=== PATIENT | male | born 1960 | race Caucasian/White ===

== ENCOUNTER 2019-07-11 10:50 | Outpatient (RCR) | payer MEDICAID, SELFPAY | END 2019-07-18 00:01 | LOC: WOUND 10:50 | PROVIDERS: Family Provider Family Medicine; Visit Provider Thoracic Surgery (Cardiothoracic Vascular Surgery) | DX: I96 Gangrene, not elsewhere classified (principal); L89.324 Pressure ulcer of left buttock, stage 4; L89.314 Pressure ulcer of right buttock, stage 4 | CPT/HCPCS: 11042; 11045 ==

== ENCOUNTER 2019-07-21 10:29 | Outpatient (CLI) | payer MEDICAID, SELFPAY ==
--- NOTE | 2019-07-21 10:35 | XR_ITS ---
WS: [id number] ABDOMEN: SUPINE FILM HISTORY: PYELONEPHRITIS COMPARISON: 06/16/2011 and 07/17/2019. Mild fecal retention and small bowel distention. LEFT lower quadrant ostomy. IVC filter. Right kidney: Double-J RIGHT ureteral stent. No calcification along the course of the stent. Left kidney: No renal or ureteral stone identified. XR/XR KUB [id number] IMPRESSION: 1. Right-sided double-J ureteral stent in good position. 2. Suspect mild ileus.
== END 2019-07-21 10:30 | disposition home or self-care (01) ==
LOC: RAD 10:31
PROVIDERS: Family Provider Family Medicine; PCP Family Medicine; Visit Provider Urology
DX: N12 Tubulo-interstitial nephritis, not specified as acute or chronic (principal); Z93.4 Other artificial openings of gastrointestinal tract status
CPT/HCPCS: 74018

== ENCOUNTER 2019-07-27 12:01 | Day surgery (SDC) | payer MEDICAID, SELFPAY ==
[2019-07-26 12:35] VITALS: BMI 28.1
[2019-07-27] VITALS (13 sets, daily range): BP systolic 105–158; BP diastolic 68–94; PULSE 65–91; RESP 12–18; TEMP 36.1–36.6; O2SAT 92–100
--- NOTE | 2019-07-27 | SC_ITS ---
WS: [id number] Fluoroscopy for right cystoscopy in the OR, today Clinical Data: CYSTO Comparison: KUB, 07/21/2019 Findings: There is a ureteral stent extending from the bladder to the right renal pelvis. Contrast material was injected into the right renal pelvis appear Right ureteral cystoscopy. SC/C-arm FL for Urology Impression:
--- NOTE | 2019-07-27 | SCC_ITS ---
Procedure Done: 1. Cystoscopy with removal of right ureteral stent 2. Right ureterorenoscopy with laser lithotripsy of multiple gelatinous stones infectious stones 3. Right retrograde ureteropyelogram 4. No stent 53.5 seconds of fluoroscopic guidance, for a cumulative dose of 12.89 mGy, was provided to Dr. Castaneda by the radiology department. C-arm images of the abdomen were saved for the patient's permanent record. ANATD
--- NOTE | 2019-07-27 11:48 | ANES.PREANES ---
Pre-Anesthetic Assessment Pre-Anesthetic Assessment: Height/Weight: Height 1.7 m Weight 81.647 kg Proposed Procedure: Operation Date: 07/27/19 13:00 Proposed Procedures p Cystoscopy(Not Applicable) - MD stuart Miller Ureteral Stent Removal(Right) - MD stuart Miller Flexible Ureteroscopy(Not Applicable) - MD stuart Miller Ureteral Stent Placement(Bilateral) - Brandon Castaneda MD Social: Social History: Tobacco and No alcohol Exam: Pre-Anes Outpt Exam: alert, oriented x 3 and regular rate & rhythm Additional Exam Findings (including area of procedure): Course bilaterally, will give breathing tx Airway: Submandibular: WNL Cervical ROM: WNL MP: 2 History/ROS: No significant history except as noted Pulmonary: Pulmonary: None reported CV/HEM: CV/HEM: None reported : Comments: neurogenic bladder Musc/skel: Comments: paraplegia Anesthetic Plan: ASA status: III Anesthesia: Anesthesia Evaluation and General Risk of > 500 ml blood loss (7ml/kg in children): No PFSH Anesthesia PFSH: Social History Smoking and tobacco status: current every day smoker Alcohol intake: never Adopted: No Caregiver/support person: No Lives independently: No Household members: spouse Marital status: Current occupational status: disabled Data Anesthesia Cardiac Studies: No Data to Display
[2019-07-27] MEDS: sodium chloride 0.9% 1,000 ML 30 ML IV (12:40)
[2019-07-27] MEDS: ipratropium 0.5 mg/2.5 mL Neb INHALATION (12:55)
--- NOTE | 2019-07-27 13:09 | P.HPUD_ITS ---
H&P update H&P Update: DATE OF SURGERY/PROCEDURE: 07/27/19 DATE H&P PERFORMED: 10/05 H&P UPDATE INFORMATION: H&P completed within last 30 days, No changes to prior documentation and H&P is in [facility] EMR on date indicated PREOP DIAGNOSIS: Right proximal ureteral stone status post obstructive pyelonephritis with stenting PLANNED PROCEDURE: Operation Date: 07/27/19 13:00 Proposed Procedures p Cystoscopy(Not Applicable) - Brandon Castaneda MD s Ureteral Stent Removal(Right) - Brandon Castaneda MD s Flexible Ureteroscopy(Not Applicable) - Brandon Castaneda MD s Ureteral Stent Placement(Bilateral) - Brandon Castaneda MD Full H&P Medications/Allergies: Current Medications: Current Medications Generic Name Dose Route Start Last Admin Trade Name Freq PRN Reason Stop Dose Admin Sodium Chloride 1,000 mls @ 30 ml s/hr 07/27/19 06:15 07/27/19 12:40 Sodium Chloride 0.9% IV 07/28/19 06:14 30 mls/hr .Q24H CLARY Administration Perinent History: Medical/Surgical History: Medical History (Updated 07/21/19 @ 13:58 by Brandon Castaneda MD) Neurogenic bladder (Acute) Obstructive pyelonephritis (Inactive) Paraplegia (Acute) Right ureteral calculus (Acute) Family History: Family History (Updated 07/20/19 @ 09:36 by Tata Cooley LPN) Mother Cancer Denies family history of Anesthesia complication Bleeding disorder Social History: Social History Smoking and tobacco status: current every day smoker Alcohol intake: never Adopted: No Caregiver/support person: No Lives independently: No Household members: spouse Marital status: Current occupational status: disabled
[2019-07-27] MEDS: levofloxacin-dextrose 5 % 500 MG/100 ML PREMIX 100 MG IV (13:10)
[2019-07-27] MEDS: iohexol 300 mg/mL 50 mL Btl 6 ML XX (14:36)
--- NOTE | 2019-07-27 14:55 | PM.OP ---
Operative Report Post-Operative Note: Date of procedure: 07/27/19 Preop Diagnosis: Status post emergency stenting, right obstructive pyelonephritis with obstructing infectious debris Post-op diagnosis: same Post-op Findings: Multiple solid gelatinous type debris stones in the right collecting system including renal pelvis and multiple calyces. Procedure Done: 1. Cystoscopy with removal of right ureteral stent 2. Right ureterorenoscopy with laser lithotripsy of multiple gelatinous stones infectious stones 3. Right retrograde ureteropyelogram 4. No stent Implants: None Specimens removed/disposition: Multiple fragments of lithotripsied gelatinous material consistent with what was seen on the CT scan as intra-collecting system and obstructing proximal ureteral lesions Pathology: other Surgeon: Brandon Castaneda Anesthesia: general Complications: None Findings: Approximately 5 distinct stones consistent of gelatinous matrix type material that could not be pulled through the scope without fragmentation with laser lithotripsy. Were difficult to securing grasping forceps and therefore laser lithotripsy was utilized to break them into small enough pieces that were evacuated via the flexible ureteroscope. All fragments were confirmed to be removed at the completion of the procedure with careful inspection of all the calyces. Condition: stable Disposition: PACU Operative Report: Brief History: Mr. Mullen is a 58-year-old white male who was recently hospitalized for obstructive pyelonephritis with an obstructing lesion in the right proximal ureter that had a matrix stone type appearance. And emergency stenting was performed in the right collecting system. He was also found to have a large amount of a similar type debris in the bladder and this was cleaned out with lavage of the bladder. He is back now for flexible ureteroscopy in the right collecting system to clear out the remaining debris. Procedure: After routine preoperative evaluation examination and obtaining of informed consent he was taken to the operating suite on 07/27/2019 where general anesthesia was administered without difficulty after appropriate timeout was performed, SCDs confirmed to be functioning, preoperative antibiotics administered, beta-dae protocol confirmed. Prepped and draped in usual sterile fashion in dorsolithotomy position pain careful attention to avoiding pressure points. 21 Croatian cystoscope with 30 degree lens was introduced into the urethral meatus and advanced into the bladder videoscopy. Bladder was systematically examined. There was some small amount of debris and some small stone fragments off of the stent that were cleared from the bladder with the lavage. Flexible tip guidewire was easily passed up the right ureter next to the stent and the stent was grasped with grasping forceps and removed under fluoroscopic monitoring with easy uncurling of the proximal stent. A flexible ureteroscope was then advanced over the guidewire up to the right renal pelvis and the wire was removed. The intrarenal collecting system was carefully inspected and there were multiple collections of matrix type stones in the renal pelvis and in multiple calyces consistent with the debris cleared from his bladder at stent placement mentioned above. 3 Croatian grasping forceps were utilized to try to secure these but the grasping forceps just cut through the gelatinous material. A guidewire was then passed back through the scope and the scope was removed visualizing the internal ureteral lumen and no additional gelatinous material was identified. A 38 cm ureteral access sheath was then advanced over the guidewire to just below the right UPJ and the flexible ureteroscope was then advanced up the right ureter over the guidewire into the renal pelvis and the guidewire was removed. A 275 ?m holmium laser fiber was then utilized to fragment all of the gelatinous bodies into small enough pieces that were then evacuated with lavage of the renal pelvis and calyceal system through the flexible ureteroscope. There was also some blood clot that was evacuated as well. On final inspection all the calyces were clear of these fragments, no additional gelatinous bodies were identified. All clot was also removed. There was no active bleeding. The ureteral access sheath was backed up onto the hub of the scope and the scope was removed under direct visualization to inspect the ureter to make a decision whether to leave the stent or not. The ureter was nicely dilated and atraumatic in its appearance. For that reason it was decided to NOT leave a ureteral stent in place. The bladder was drained with a 16 Croatian Alonso catheter and the procedure completed. He tolerated the procedure well without complications and was awakened in the operating room and returned to the recovery in stable condition PLANS: 1. Maintain Alonso catheter for approximately 3 days and then remove at home 2. Resume SCIC as doing prior to becoming sick 3. Follow-up with me in 3 months with a KUB. 4. Complete 5-day course of Levaquin prescribed. 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
--- NOTE | 2019-07-27 15:08 | SUR.PHASEI ---
1454 PTTO PACU SLEEPY WITH ORAL AIRWAY IN PLACE GOOD RESP EFFORT NOTED SATS MAINTAINED WITH NO DISTRESS ESPINAL TO DD STATLOCK TO RT THIGH PINK URINE NO CLOTS NOTED TO TUBING.
--- NOTE | 2019-07-27 15:19 | SUR.PHASEI ---
PT OPENS EYES BUT DOES NOT FOLLOW COMMANDS, ORAL AIRWAY IN PLACE PT ON RA TRIAL, VSS.
--- NOTE | 2019-07-27 15:55 | SUR.PHASEI ---
1542 PT TO OPS AWAKE ALERT TALKATIVE WITH STAFF AND PT TURNED AND BILAT BUTTOCK DRESSING D/I STATES SHE TAKES IT OFF AT NITE TO AIRDRY
== END 2019-07-27 16:48 | disposition home or self-care (01) ==
PROVIDERS: Family Provider Family Medicine; PCP Family Medicine; Visit Provider Urology
PROC: 0TJB8ZZ Inspection of Bladder, Via Natural or Artificial Opening Endoscopic (ICD-10-PCS; CPT 52000; principal; 2019-07-27 13:00)
PROC: (CPT 52310; 2019-07-27 13:00)
PROC: 0TJ98ZZ Inspection of Ureter, Via Natural or Artificial Opening Endoscopic (ICD-10-PCS; CPT 52351; 2019-07-27 13:00)
PROC: (CPT 52353; 2019-07-27 13:00)
DX: N11.1 Chronic obstructive pyelonephritis (principal); F17.210 Nicotine dependence, cigarettes, uncomplicated
CPT/HCPCS: 52353; 36415; 76000; 88300; 88305; 94640; 96365; J1956; J2001; J2704; J3010; J7030; J7611; J7644; Q9967

== ENCOUNTER 2019-08-15 10:07 | Outpatient (RCR) | payer MEDICAID, SELFPAY | END 2019-08-18 23:59 | disposition home or self-care (01) | LOC: WOUND 10:07 | PROVIDERS: Family Provider Family Medicine; PCP Family Medicine; Visit Provider Thoracic Surgery (Cardiothoracic Vascular Surgery) | DX: I96 Gangrene, not elsewhere classified (principal); L89.324 Pressure ulcer of left buttock, stage 4; L89.314 Pressure ulcer of right buttock, stage 4 | CPT/HCPCS: 11042; 97597 ==

== ENCOUNTER 2019-09-12 10:28 | Outpatient (RCR) | payer MEDICAID, SELFPAY | END 2019-09-16 23:59 | disposition home or self-care (01) | LOC: WOUND 10:28 | PROVIDERS: Family Provider Family Medicine; PCP Family Medicine; Visit Provider Thoracic Surgery (Cardiothoracic Vascular Surgery) | DX: I96 Gangrene, not elsewhere classified (principal); L89.324 Pressure ulcer of left buttock, stage 4; L89.314 Pressure ulcer of right buttock, stage 4 | CPT/HCPCS: 11042; 11045; A6446 ==

== ENCOUNTER 2019-10-17 10:17 | Outpatient (RCR) | payer MEDICAID, SELFPAY | END 2019-10-17 23:59 | disposition home or self-care (01) | LOC: WOUND 10:17 | PROVIDERS: Family Provider Family Medicine; PCP Family Medicine; Visit Provider Thoracic Surgery (Cardiothoracic Vascular Surgery) | DX: I96 Gangrene, not elsewhere classified (principal); L89.324 Pressure ulcer of left buttock, stage 4; L89.624 Pressure ulcer of left heel, stage 4; L89.314 Pressure ulcer of right buttock, stage 4 | CPT/HCPCS: 11042; 11044; 11045; 87070; 87077; 87176; 87186; 87205 ==

== ENCOUNTER 2019-10-20 10:48 | Outpatient (CLI) | payer MEDICAID, SELFPAY ==
--- NOTE | 2019-10-20 | XR_ITS ---
WS: [id number] FOOT LEFT TECHNIQUE: 3 views of the left foot CLINICAL INFORMATION: NON HEALING ULCER COMPARISON: None. FINDINGS: Soft tissue ulceration with defect overlying the calcaneus dorsally. Small amount of underlying irreg ularity in the calcaneus suspicious for early or developing osteomyelitis. This can be further evalua segun MRI. Diffuse osteopenia. Soft tissue edema lower leg and ankle. Normal anatomic alignment. No acute fractu res. Plantar and Achilles calcaneal spurring. IP joint narrowing. XR/XR foot LT min 3V* [id number] IMPRESSION: 1. Dorsal soft tissue ulceration overlying the calcaneus with a small amount o f periosteal reaction and bony irregularity suspicious for developing osteomyel itis. This can be further evaluated with MRI 2. Diffuse osteopenia.
== END 2019-10-20 10:49 | disposition home or self-care (01) ==
LOC: RADWPI 10:51
PROVIDERS: Family Provider Family Medicine; PCP Family Medicine; Visit Provider Thoracic Surgery (Cardiothoracic Vascular Surgery)
DX: L97.529 Non-pressure chronic ulcer of other part of left foot with unspecified severity (principal); M85.872 Other specified disorders of bone density and structure, left ankle and foot
CPT/HCPCS: 73630

== ENCOUNTER 2019-11-07 13:03 | Outpatient (RCR) | payer MEDICAID, SELFPAY ==
--- NOTE | 2019-11-07 15:02 | XR_ITS ---
WS: [id number] ABDOMEN KUB CLINICAL INFORMATION: Renal/ureteral calculi. COMPARISON: July 21, 2019 FINDINGS: IVC filter . Moderate pancolonic constipation. No significant small bowel distention. Osteopenia. Mil d spondylitic changes lumbar spine. IVC filter. Degenerative arthritis both hips. No visualized renal or ureteral calculi. XR/XR KUB [id number] Impression: 1. Moderate pancolonic constipation partially obscures renal fossa. 2. No visualized renal or ureteral calculi.
== END 2019-11-16 23:59 | disposition home or self-care (01) ==
LOC: WOUND 13:03
PROVIDERS: Family Provider Family Medicine; PCP Family Medicine; Visit Provider Thoracic Surgery (Cardiothoracic Vascular Surgery)
DX: I96 Gangrene, not elsewhere classified (principal); L89.324 Pressure ulcer of left buttock, stage 4; L89.624 Pressure ulcer of left heel, stage 4; L89.314 Pressure ulcer of right buttock, stage 4; M79.672 Pain in left foot
CPT/HCPCS: 11042; 11045; 74018

== ENCOUNTER 2019-11-28 10:47 | Outpatient (CLI) | payer MEDICAID, SELFPAY | END 2019-11-28 10:48 | disposition home or self-care (01) | LOC: WOUND 10:48 | PROVIDERS: Family Provider Family Medicine; PCP Family Medicine; Visit Provider Thoracic Surgery (Cardiothoracic Vascular Surgery) | DX: I96 Gangrene, not elsewhere classified (principal); L89.324 Pressure ulcer of left buttock, stage 4; L89.624 Pressure ulcer of left heel, stage 4; L89.314 Pressure ulcer of right buttock, stage 4 | CPT/HCPCS: 11042; 11045 ==

== ENCOUNTER 2019-12-12 10:54 | Outpatient (CLI) | payer MEDICAID, SELFPAY | END 2019-12-12 10:55 | disposition home or self-care (01) | LOC: WOUND 10:55 | PROVIDERS: Family Provider Family Medicine; PCP Family Medicine; Visit Provider Thoracic Surgery (Cardiothoracic Vascular Surgery) | DX: I96 Gangrene, not elsewhere classified (principal); L89.324 Pressure ulcer of left buttock, stage 4; L89.624 Pressure ulcer of left heel, stage 4; L89.314 Pressure ulcer of right buttock, stage 4 | CPT/HCPCS: 11042; 11045 ==

== ENCOUNTER 2020-01-02 10:55 | Outpatient (CLI) | payer MEDICAID, SELFPAY | END 2020-01-02 10:56 | disposition home or self-care (01) | LOC: WOUND 10:58 | PROVIDERS: Family Provider Family Medicine; PCP Family Medicine; Visit Provider Thoracic Surgery (Cardiothoracic Vascular Surgery) | DX: I96 Gangrene, not elsewhere classified (principal); L89.324 Pressure ulcer of left buttock, stage 4; L89.624 Pressure ulcer of left heel, stage 4; L89.314 Pressure ulcer of right buttock, stage 4 | CPT/HCPCS: 11042; 11045 ==

== ENCOUNTER 2020-02-13 15:57 | Outpatient (CLI) | payer MEDICAID, SELFPAY | END 2020-02-13 15:58 | disposition home or self-care (01) | LOC: WOUND 16:17 | PROVIDERS: Family Provider Family Medicine; PCP Family Medicine; Visit Provider Thoracic Surgery (Cardiothoracic Vascular Surgery) | DX: L89.324 Pressure ulcer of left buttock, stage 4 (principal); L89.624 Pressure ulcer of left heel, stage 4; L89.314 Pressure ulcer of right buttock, stage 4 | CPT/HCPCS: 11042; 11045 ==

== ENCOUNTER 2020-03-12 10:42 | Outpatient (CLI) | payer MEDICAID, SELFPAY | END 2020-03-12 10:43 | disposition home or self-care (01) | LOC: WOUND 10:42 | PROVIDERS: Family Provider Family Medicine; PCP Family Medicine; Visit Provider Thoracic Surgery (Cardiothoracic Vascular Surgery) | DX: L89.324 Pressure ulcer of left buttock, stage 4 (principal); L89.624 Pressure ulcer of left heel, stage 4; L89.153 Pressure ulcer of sacral region, stage 3; L89.314 Pressure ulcer of right buttock, stage 4 | CPT/HCPCS: 11042; 11045 ==

== ENCOUNTER 2020-03-26 10:42 | Outpatient (CLI) | payer MEDICAID, SELFPAY | END 2020-03-26 10:43 | disposition home or self-care (01) | LOC: WOUND 10:43 | PROVIDERS: Family Provider Family Medicine; PCP Family Medicine; Visit Provider Thoracic Surgery (Cardiothoracic Vascular Surgery) | DX: L89.314 Pressure ulcer of right buttock, stage 4 (principal); L89.624 Pressure ulcer of left heel, stage 4; L89.153 Pressure ulcer of sacral region, stage 3; L89.324 Pressure ulcer of left buttock, stage 4 | CPT/HCPCS: 11042; 11045 ==

== ENCOUNTER 2020-04-23 10:43 | Outpatient (CLI) | payer MEDICAID, SELFPAY | END 2020-04-23 10:44 | disposition home or self-care (01) | LOC: WOUND 10:44 | PROVIDERS: Family Provider Family Medicine; PCP Family Medicine; Visit Provider Thoracic Surgery (Cardiothoracic Vascular Surgery) | DX: L89.324 Pressure ulcer of left buttock, stage 4 (principal); L89.624 Pressure ulcer of left heel, stage 4; L89.314 Pressure ulcer of right buttock, stage 4 | CPT/HCPCS: 11042; 11045 ==

== ENCOUNTER 2020-05-21 10:32 | Outpatient (CLI) | payer MEDICAID, SELFPAY | END 2020-05-21 10:33 | disposition home or self-care (01) | LOC: WOUND 10:33 | PROVIDERS: Family Provider Family Medicine; PCP Family Medicine; Visit Provider Thoracic Surgery (Cardiothoracic Vascular Surgery) | DX: L89.324 Pressure ulcer of left buttock, stage 4 (principal); L89.314 Pressure ulcer of right buttock, stage 4; L89.624 Pressure ulcer of left heel, stage 4 | CPT/HCPCS: 11042; 11045 ==

== ENCOUNTER 2020-06-18 09:54 | Outpatient (CLI) | payer MEDICAID, SELFPAY | END 2020-06-18 09:55 | disposition home or self-care (01) | LOC: WOUND 09:54 | PROVIDERS: Family Provider Family Medicine; PCP Family Medicine; Visit Provider Thoracic Surgery (Cardiothoracic Vascular Surgery) | DX: L89.324 Pressure ulcer of left buttock, stage 4 (principal); L89.624 Pressure ulcer of left heel, stage 4; L89.314 Pressure ulcer of right buttock, stage 4 | CPT/HCPCS: 11042; 11045; L4397 ==

== ENCOUNTER 2020-07-23 10:46 | Outpatient (CLI) | payer MEDICAID, SELFPAY | END 2020-07-23 10:47 | disposition home or self-care (01) | LOC: WOUND 10:47 | PROVIDERS: Family Provider Family Medicine; PCP Family Medicine; Visit Provider Thoracic Surgery (Cardiothoracic Vascular Surgery) | DX: L89.324 Pressure ulcer of left buttock, stage 4 (principal); L89.624 Pressure ulcer of left heel, stage 4; L89.314 Pressure ulcer of right buttock, stage 4 | CPT/HCPCS: 11042; 11045; 15275; Q4186 ==

== ENCOUNTER 2020-07-30 10:28 | Outpatient (CLI) | payer MEDICAID, SELFPAY | END 2020-07-30 10:29 | disposition home or self-care (01) | LOC: WOUND 10:28 | PROVIDERS: Family Provider Family Medicine; PCP Family Medicine; Visit Provider Thoracic Surgery (Cardiothoracic Vascular Surgery) | DX: L89.324 Pressure ulcer of left buttock, stage 4 (principal); L89.314 Pressure ulcer of right buttock, stage 4; L89.624 Pressure ulcer of left heel, stage 4 | CPT/HCPCS: 11042; 15275; Q4186 ==

== ENCOUNTER 2020-08-06 10:35 | Outpatient (CLI) | payer MEDICAID, SELFPAY | END 2020-08-06 10:36 | disposition home or self-care (01) | LOC: WOUND 10:37 | PROVIDERS: Family Provider Family Medicine; PCP Family Medicine; Visit Provider Thoracic Surgery (Cardiothoracic Vascular Surgery) | DX: I96 Gangrene, not elsewhere classified (principal); L89.324 Pressure ulcer of left buttock, stage 4; L89.624 Pressure ulcer of left heel, stage 4; L89.314 Pressure ulcer of right buttock, stage 4 | CPT/HCPCS: 15275; Q4186 ==

== ENCOUNTER 2020-08-13 10:11 | Outpatient (CLI) | payer MEDICAID, SELFPAY | END 2020-08-13 10:12 | disposition home or self-care (01) | LOC: WOUND 10:12 | PROVIDERS: Family Provider Family Medicine; PCP Family Medicine; Visit Provider Thoracic Surgery (Cardiothoracic Vascular Surgery) | DX: I96 Gangrene, not elsewhere classified (principal); L89.324 Pressure ulcer of left buttock, stage 4; L89.624 Pressure ulcer of left heel, stage 4; S71.101A Unspecified open wound, right thigh, initial encounter; L89.314 Pressure ulcer of right buttock, stage 4; X58.XXXA Exposure to other specified factors, initial encounter | CPT/HCPCS: 11042; 11045 ==

== ENCOUNTER 2020-09-17 11:28 | Outpatient (CLI) | payer MEDICAID, SELFPAY | END 2020-09-17 11:29 | disposition home or self-care (01) | LOC: WOUND 11:28 | PROVIDERS: Family Provider Family Medicine; PCP Family Medicine; Visit Provider Thoracic Surgery (Cardiothoracic Vascular Surgery) | DX: L89.624 Pressure ulcer of left heel, stage 4 (principal); L89.324 Pressure ulcer of left buttock, stage 4; L89.314 Pressure ulcer of right buttock, stage 4 | CPT/HCPCS: 11042 ==

== ENCOUNTER 2020-10-01 11:22 | Outpatient (CLI) | payer MEDICAID, SELFPAY | END 2020-10-01 11:23 | disposition home or self-care (01) | LOC: WOUND 11:22 | PROVIDERS: Family Provider Family Medicine; PCP Family Medicine; Visit Provider Thoracic Surgery (Cardiothoracic Vascular Surgery) | DX: I96 Gangrene, not elsewhere classified (principal); L89.324 Pressure ulcer of left buttock, stage 4; L89.624 Pressure ulcer of left heel, stage 4; L89.314 Pressure ulcer of right buttock, stage 4 | CPT/HCPCS: 11042; 11045 ==

== ENCOUNTER 2020-10-01 12:41 | Outpatient (CLI) | payer MEDICAID, SELFPAY ==
--- NOTE | 2020-10-01 12:51 | XR_ITS ---
WS: [id number] XR pelvis 1-2V* [id number] REASON FOR EXAM: PRESSURE ULCER OF L BUTTOCK R BUTTOCK FINDINGS: In comparison to the previous examination of 11/07/2019, one again sees the exuberant bony changes of the acetabular region and areas of soft tissue ossification around both hip joints. These findings ar e relatively stable. Sclerosis and deformity of the ischial tuberosities which has been previously noted as well. There ar e now appears to be more sclerotic density in the pubic rami at the pubic symphysis. With widening a nd irregularity of the pubic symphysis. On this examination the right ischial tuberosity is not well demonstrated due to overlying air trapped in skin folds and presumably the decubitus ulcers. XR/XR pelvis 1-2V* [id number] IMPRESSION: The findings are very suggestive of an ongoing indolent chronic osteomyelitis o f the ischial tuberosities with extension into the pubic rami structure adjacen t to the pubic symphysis. Likely the pubic symphysis itself is infected. Some of the findings in the pelvis and hip joints could be attributed to long-s tanding lower extremity paralysis and bony metabolic disease, however these krystian ologies did not readily account for all the findings.
[2020-10-01 13:30] LABS: Basophils # 0.1 10^3/uL (0.0-0.1); Basophils % 0.5 %; Eosinophils # 0.4 10^3/uL (0.0-0.8); Eosinophils % 3.9 %; Hematocrit 40.2 % (42.0-52.0); Hemoglobin 11.5 g/dL (11.7-16.6); Lymphocytes # 1.5 10^3/uL (0.8-4.8); Lymphocytes % 16.1 %; Mean Corpuscular HGB Conc 28.6 g/dL (30.0-36.0); Mean Corpuscular Hemoglobin 23.3 pg (28.0-34.0); Mean Corpuscular Volume 81.5 fL (80-94); Monocytes # 0.4 10^3/uL (0.2-0.9); Monocytes % 3.7 %; Neutrophils # 7.15 10^3/uL (1.8-7.7); Neutrophils % 74.9 %; Nucleated Red Blood Cells % 0 %; Platelet Count 450 10^3/cmm (130-400); Red Blood Count 4.93 10^6/uL (4.1-5.3); Red Cell Distribution Width 19.4 % (12.1-15.1); White Blood Count 9.6 10^3/uL (4.0-10.0)
[2020-10-01 13:50] LABS: Blood Urea Nitrogen 6 mg/dL (8-23); C Reactive Protein 179.9 mg/L (0.0-4.9); Calcium 8.8 mg/dL (8.5-10.5); Carbon Dioxide 29 mmol/L (22-29); Chloride 94 mmol/L (98-107); Glomerular Filtration Rate 114.6 mL/min (90-130); Glucose 291 mg/dL (65-115); Osmolality Calculated 282 mOsm/kg (285-295); Prealbumin 9.6 mg/dL (20-40); Sodium 132 mmol/L (136-145)
[2020-10-01 13:59] LABS: Anion Gap 13.5 (5-19); Potassium 4.5 mmol/L (3.5-5.1)
[2020-10-01 14:57] LABS: Erythrocyte Sedimentation Rate 90 mm/hr (0-10)
== END 2020-10-01 12:42 | disposition home or self-care (01) ==
PROVIDERS: PCP Family Medicine; Visit Provider Thoracic Surgery (Cardiothoracic Vascular Surgery)
DX: L89.324 Pressure ulcer of left buttock, stage 4 (principal); L89.314 Pressure ulcer of right buttock, stage 4
CPT/HCPCS: 36415; 72170; 80048; 84134; 85025; 85651; 86140

== ENCOUNTER 2020-10-15 10:27 | Outpatient (CLI) | payer MEDICAID, SELFPAY | END 2020-10-15 10:28 | disposition home or self-care (01) | LOC: WOUND 10:28 | PROVIDERS: PCP Family Medicine; Visit Provider Thoracic Surgery (Cardiothoracic Vascular Surgery) | DX: I96 Gangrene, not elsewhere classified (principal); L89.624 Pressure ulcer of left heel, stage 4; L89.314 Pressure ulcer of right buttock, stage 4 | CPT/HCPCS: 11042; 11045 ==

== ENCOUNTER 2020-11-05 10:13 | Outpatient (CLI) | payer MEDICAID, SELFPAY | END 2020-11-05 10:14 | disposition home or self-care (01) | LOC: WOUND 10:13 | PROVIDERS: PCP Family Medicine; Visit Provider Thoracic Surgery (Cardiothoracic Vascular Surgery) | DX: I96 Gangrene, not elsewhere classified (principal); L89.324 Pressure ulcer of left buttock, stage 4; L89.624 Pressure ulcer of left heel, stage 4; L89.613 Pressure ulcer of right heel, stage 3; L89.314 Pressure ulcer of right buttock, stage 4 | CPT/HCPCS: 11042; 11045 ==

== ENCOUNTER 2020-11-06 14:47 | Outpatient (CLI) | payer MEDICAID, SELFPAY ==
--- NOTE | 2020-11-06 15:00 | XR_ITS ---
WS: [id number] KUB, AP view, 11/06/2020 Clinical Data: NEUROGENIC BLADDER Comparison: KUB, 11/07/2019. Findings: No abnormal intraabdominal masses or calcifications are seen. There is no dilatated small bowel or ev idence of obstruction. There is an large amount of fecal material throughout the colon. The stomach is dilated. There are po sterior pedicle screws at T8. There is an inferior vena caval filter in position. There is sclerotic change of the pubic symphysis. Degenerative change of both hips is noted. XR/XR KUB [id number] Impression: 1. Large amount of fecal material throughout the colon. 2. Sclerotic change of the pubic symphysis. 3. Bilateral osteoarthritis of the hips.
== END 2020-11-06 14:48 | disposition home or self-care (01) ==
LOC: RAD 14:49
PROVIDERS: PCP Family Medicine; Visit Provider Urology
DX: N31.9 Neuromuscular dysfunction of bladder, unspecified (principal); N39.0 Urinary tract infection, site not specified; M16.0 Bilateral primary osteoarthritis of hip
CPT/HCPCS: 74018

== ENCOUNTER → 2020-11-26 09:47 | Outpatient (BNVA) | payer MEDICAID, SELFPAY | PROVIDERS: PCP Family Medicine; Visit Provider Student in an Organized Health Care Education/Training Program | DX: M86.9 Osteomyelitis, unspecified (principal) | CPT/HCPCS: 87070; 87077; 87184 ==

== ENCOUNTER 2020-12-03 10:46 | Outpatient (CLI) | payer MEDICAID, SELFPAY | END 2020-12-03 10:47 | disposition home or self-care (01) | LOC: WOUND 10:47 | PROVIDERS: PCP Family Medicine; Visit Provider Thoracic Surgery (Cardiothoracic Vascular Surgery) | DX: I96 Gangrene, not elsewhere classified (principal); L89.324 Pressure ulcer of left buttock, stage 4; L89.624 Pressure ulcer of left heel, stage 4; L89.613 Pressure ulcer of right heel, stage 3; L89.314 Pressure ulcer of right buttock, stage 4 | CPT/HCPCS: 11042; 11045 ==

== ENCOUNTER 2021-01-07 10:48 | Outpatient (CLI) | payer MEDICAID, SELFPAY | END 2021-01-07 10:49 | disposition home or self-care (01) | LOC: WOUND 10:49 | PROVIDERS: PCP Family Medicine; Visit Provider Thoracic Surgery (Cardiothoracic Vascular Surgery) | DX: I96 Gangrene, not elsewhere classified (principal); L89.324 Pressure ulcer of left buttock, stage 4; L89.313 Pressure ulcer of right buttock, stage 3 | CPT/HCPCS: 11042; 11045 ==

== ENCOUNTER 2021-01-08 12:02 | Outpatient (CLI) | payer MEDICAID, SELFPAY ==
--- NOTE | 2021-01-08 13:30 | US_ITS ---
WS: [id number] RENAL ULTRASOUND HISTORY: N31.9 - Neuromuscular dysfunction of bladder, unspecified COMPARISON: None available. TECHNIQUE: 2-D and color Doppler imaging of the kidney submitted. Right kidney: 11.3 cm x 4.3 cm x 5.7 cm. Normal echogenicity with no hydronephrosis or mass. Left kidney: 11.1 cm x 4.0 cm x 4.5 cm. Normal echogenicity with no hydronephrosis or mass. Aorta: Normal. Urinary Bladder: Normally distended bladder. There is mild diffuse wall thickening of the bladder whi ch may be due to chronic outlet obstruction. There is no focal mass or increased vascularity. US/US renal BI* [id number] IMPRESSION: 1. Normal renal ultrasound. No hydronephrosis or mass. 2. Normally distended urinary bladder with mild diffuse wall thickening. No fo sabine mass.
== END 2021-01-08 12:03 | disposition home or self-care (01) ==
LOC: RAD 12:04
PROVIDERS: PCP Family Medicine; Visit Provider Urology
DX: N31.9 Neuromuscular dysfunction of bladder, unspecified (principal)
CPT/HCPCS: 76770

== ENCOUNTER 2021-02-04 10:29 | Outpatient (CLI) | payer MEDICAID, SELFPAY | END 2021-02-04 10:30 | disposition home or self-care (01) | LOC: WOUND 10:30 | PROVIDERS: PCP Family Medicine; Visit Provider Thoracic Surgery (Cardiothoracic Vascular Surgery) | DX: I96 Gangrene, not elsewhere classified (principal); L89.324 Pressure ulcer of left buttock, stage 4; L89.624 Pressure ulcer of left heel, stage 4; L89.613 Pressure ulcer of right heel, stage 3; L89.314 Pressure ulcer of right buttock, stage 4 | CPT/HCPCS: 11042; 11045 ==

== ENCOUNTER 2021-03-11 10:47 | Outpatient (CLI) | payer MEDICAID, SELFPAY | END 2021-03-11 10:48 | disposition home or self-care (01) | LOC: WOUND 10:48 | PROVIDERS: PCP Family Medicine; Visit Provider Nurse Practitioner Family | DX: I96 Gangrene, not elsewhere classified (principal); L89.324 Pressure ulcer of left buttock, stage 4; L89.314 Pressure ulcer of right buttock, stage 4; L89.624 Pressure ulcer of left heel, stage 4; L89.613 Pressure ulcer of right heel, stage 3; F17.210 Nicotine dependence, cigarettes, uncomplicated | CPT/HCPCS: 11042; 11045 ==

== ENCOUNTER 2021-04-08 10:49 | Outpatient (CLI) | payer MEDICAID, SELFPAY | END 2021-04-08 10:50 | disposition home or self-care (01) | LOC: WOUND 10:50 | PROVIDERS: PCP Family Medicine; Visit Provider Thoracic Surgery (Cardiothoracic Vascular Surgery) | DX: L89.324 Pressure ulcer of left buttock, stage 4 (principal); L89.624 Pressure ulcer of left heel, stage 4; L89.613 Pressure ulcer of right heel, stage 3; L89.314 Pressure ulcer of right buttock, stage 4; F17.210 Nicotine dependence, cigarettes, uncomplicated | CPT/HCPCS: 11042; 11045; 97597 ==

== ENCOUNTER 2021-05-06 10:57 | Outpatient (CLI) | payer MEDICAID, SELFPAY | END 2021-05-06 10:58 | disposition home or self-care (01) | LOC: WOUND 10:58 | PROVIDERS: PCP Family Medicine; Visit Provider Thoracic Surgery (Cardiothoracic Vascular Surgery) | DX: I96 Gangrene, not elsewhere classified (principal); L89.314 Pressure ulcer of right buttock, stage 4; L89.324 Pressure ulcer of left buttock, stage 4; L89.624 Pressure ulcer of left heel, stage 4; L89.613 Pressure ulcer of right heel, stage 3; F17.210 Nicotine dependence, cigarettes, uncomplicated | CPT/HCPCS: 11042; 11045; 97597 ==

== ENCOUNTER 2021-06-10 11:00 | Outpatient (CLI) | payer MEDICAID, SELFPAY | END 2021-06-10 11:01 | disposition home or self-care (01) | LOC: WOUND 06-17 14:10 | PROVIDERS: PCP Family Medicine; Visit Provider Nurse Practitioner Family | DX: L89.324 Pressure ulcer of left buttock, stage 4 (principal); L89.624 Pressure ulcer of left heel, stage 4; L89.314 Pressure ulcer of right buttock, stage 4; F17.210 Nicotine dependence, cigarettes, uncomplicated | CPT/HCPCS: 11042; 11045 ==

== ENCOUNTER 2021-07-08 10:57 | Outpatient (CLI) | payer MEDICAID, SELFPAY | END 2021-07-08 10:58 | disposition home or self-care (01) | LOC: WOUND 10:57 | PROVIDERS: PCP Family Medicine; Visit Provider Nurse Practitioner Family | DX: L89.324 Pressure ulcer of left buttock, stage 4 (principal); L89.624 Pressure ulcer of left heel, stage 4; L89.314 Pressure ulcer of right buttock, stage 4; F17.210 Nicotine dependence, cigarettes, uncomplicated | CPT/HCPCS: 11042; 11045 ==

== ENCOUNTER 2021-07-08 12:10 | Outpatient (CLI) | payer MEDICAID, SELFPAY ==
--- NOTE | 2021-07-08 12:16 | XR_ITS ---
WS: [id number] Exam: XR KUB [id number] Date/Time of Exam: 07/08/2021 12:16 PM Reason For Exam: HX OF RENAL CALCULI Comparison 11/06/2020. Several moderately dilated small bowel loops in the central abdomen. Scattered gas the colon. No free air. IVC filter in place. An ostomy stoma superimposes the left abdomen. Areas of patchy bony sclero sis noted in the hips and pubic symphysis. No sign of organ enlargement. No calcifications seen in th e region of the kidneys. Right upper quadrant calcifications may represent gallstones. XR/XR KUB [id number] IMPRESSION: 1. Several moderately dilated small bowel loops in the central abdomen. There i s also some scattered gas in the colon. Although this may represent ileus, the possibility of early or incomplete small bowel obstruction not could have this appearance. 2. Left-sided ostomy stoma noted. IVC filter in place. Possible gallstones. 3. Abnormal bony sclerosis of the hips and pubic symphysis. Osteoblastic metast atic disease might be considered.
== END 2021-07-08 12:11 | disposition home or self-care (01) ==
LOC: RAD 12:11
PROVIDERS: PCP Family Medicine; Visit Provider Urology
DX: Z87.442 Personal history of urinary calculi (principal)
CPT/HCPCS: 74018

== ENCOUNTER 2021-08-04 10:40 | Outpatient (CLI) | payer MEDICAID, SELFPAY | END 2021-08-04 10:41 | disposition home or self-care (01) | LOC: WOUND 10:41 | PROVIDERS: PCP Family Medicine; Visit Provider Nurse Practitioner Family | DX: I96 Gangrene, not elsewhere classified (principal); L89.324 Pressure ulcer of left buttock, stage 4; L89.624 Pressure ulcer of left heel, stage 4; L89.314 Pressure ulcer of right buttock, stage 4; F17.210 Nicotine dependence, cigarettes, uncomplicated | CPT/HCPCS: 11042; 11045; A6220 ==

== ENCOUNTER 2021-09-10 08:36 | Outpatient (CLI) | payer MEDICAID, SELFPAY | END 2021-09-10 08:37 | disposition home or self-care (01) | LOC: WOUND 08:36 | PROVIDERS: PCP Family Medicine; Visit Provider Thoracic Surgery (Cardiothoracic Vascular Surgery) | DX: I96 Gangrene, not elsewhere classified (principal); L89.324 Pressure ulcer of left buttock, stage 4; L89.624 Pressure ulcer of left heel, stage 4; F17.210 Nicotine dependence, cigarettes, uncomplicated | CPT/HCPCS: 97597; 97598 ==

== ENCOUNTER → 2021-10-08 10:55 | Outpatient (BNVA) | payer MEDICAID, SELFPAY | PROVIDERS: PCP Family Medicine; Visit Provider Thoracic Surgery (Cardiothoracic Vascular Surgery) | DX: I96 Gangrene, not elsewhere classified (principal); L89.324 Pressure ulcer of left buttock, stage 4 | CPT/HCPCS: 97597; 97598 ==

== ENCOUNTER → 2021-11-05 11:07 | Outpatient (BNVA) | payer MEDICAID, SELFPAY | PROVIDERS: PCP Family Medicine; Visit Provider Nurse Practitioner Family | DX: L89.324 Pressure ulcer of left buttock, stage 4 (principal); I96 Gangrene, not elsewhere classified; L89.624 Pressure ulcer of left heel, stage 4; L89.314 Pressure ulcer of right buttock, stage 4; F17.210 Nicotine dependence, cigarettes, uncomplicated | CPT/HCPCS: 11042 ==

== ENCOUNTER → 2021-12-10 11:08 | Outpatient (BNVA) | payer MEDICAID, SELFPAY | PROVIDERS: PCP Family Medicine; Visit Provider Thoracic Surgery (Cardiothoracic Vascular Surgery) | DX: L89.324 Pressure ulcer of left buttock, stage 4 (principal); I96 Gangrene, not elsewhere classified; L89.624 Pressure ulcer of left heel, stage 4; L89.314 Pressure ulcer of right buttock, stage 4 | CPT/HCPCS: 97597; 97598 ==

== ENCOUNTER → 2022-01-07 10:49 | Outpatient (BNVA) | payer MEDICAID, SELFPAY | PROVIDERS: PCP Family Medicine; Visit Provider Nurse Practitioner Family | DX: I96 Gangrene, not elsewhere classified (principal); L89.324 Pressure ulcer of left buttock, stage 4; L89.624 Pressure ulcer of left heel, stage 4; L89.314 Pressure ulcer of right buttock, stage 4 | CPT/HCPCS: 11042; 11045 ==

== ENCOUNTER → 2022-02-04 10:31 | Outpatient (BNVA) | payer MEDICAID, SELFPAY | PROVIDERS: PCP Family Medicine; Visit Provider Thoracic Surgery (Cardiothoracic Vascular Surgery) | DX: I96 Gangrene, not elsewhere classified (principal); L89.324 Pressure ulcer of left buttock, stage 4; L89.624 Pressure ulcer of left heel, stage 4; L89.890 Pressure ulcer of other site, unstageable; L89.314 Pressure ulcer of right buttock, stage 4 | CPT/HCPCS: 97597; 97598 ==

== ENCOUNTER → 2022-03-11 10:25 | Outpatient (BNVA) | payer MEDICAID, SELFPAY | PROVIDERS: PCP Family Medicine; Visit Provider Thoracic Surgery (Cardiothoracic Vascular Surgery) | DX: I96 Gangrene, not elsewhere classified (principal); L89.324 Pressure ulcer of left buttock, stage 4; L89.624 Pressure ulcer of left heel, stage 4; L89.890 Pressure ulcer of other site, unstageable; L89.314 Pressure ulcer of right buttock, stage 4 | CPT/HCPCS: 11042; 97597; 97598 ==

== ENCOUNTER → 2022-04-08 10:50 | Outpatient (BNVA) | payer MEDICAID, SELFPAY | PROVIDERS: PCP Family Medicine; Visit Provider Thoracic Surgery (Cardiothoracic Vascular Surgery) | DX: I96 Gangrene, not elsewhere classified (principal); L89.324 Pressure ulcer of left buttock, stage 4; L89.624 Pressure ulcer of left heel, stage 4; L89.890 Pressure ulcer of other site, unstageable; L89.314 Pressure ulcer of right buttock, stage 4 | CPT/HCPCS: 11042; 11045; 97597; 97598; A6021 ==

== ENCOUNTER → 2022-05-06 10:48 | Outpatient (BNVA) | payer MEDICAID, SELFPAY | PROVIDERS: PCP Family Medicine; Visit Provider Thoracic Surgery (Cardiothoracic Vascular Surgery) | DX: I96 Gangrene, not elsewhere classified (principal); L89.324 Pressure ulcer of left buttock, stage 4; L89.624 Pressure ulcer of left heel, stage 4; L89.314 Pressure ulcer of right buttock, stage 4; L89.210 Pressure ulcer of right hip, unstageable | CPT/HCPCS: 11042; 97597; A6021 ==

== ENCOUNTER → 2022-06-10 10:55 | Outpatient (BNVA) | payer MEDICAID, SELFPAY | PROVIDERS: PCP Family Medicine; Visit Provider Nurse Practitioner Family | DX: I96 Gangrene, not elsewhere classified (principal); L89.324 Pressure ulcer of left buttock, stage 4; L89.624 Pressure ulcer of left heel, stage 4; Z09 Encounter for follow-up examination after completed treatment for conditions other than malignant neoplasm; L89.314 Pressure ulcer of right buttock, stage 4 | CPT/HCPCS: 11042; 11045 ==

== ENCOUNTER → 2022-07-08 10:36 | Outpatient (BNVA) | payer MEDICAID, SELFPAY | PROVIDERS: PCP Family Medicine; Visit Provider Thoracic Surgery (Cardiothoracic Vascular Surgery) | DX: I96 Gangrene, not elsewhere classified (principal); L89.324 Pressure ulcer of left buttock, stage 4; L89.624 Pressure ulcer of left heel, stage 4; L89.314 Pressure ulcer of right buttock, stage 4 | CPT/HCPCS: 97597; 97598; A6021 ==

== ENCOUNTER → 2022-08-05 10:39 | Outpatient (BNVA) | payer MEDICAID, SELFPAY | PROVIDERS: PCP Family Medicine; Visit Provider Thoracic Surgery (Cardiothoracic Vascular Surgery) | DX: I96 Gangrene, not elsewhere classified (principal); L89.324 Pressure ulcer of left buttock, stage 4; L89.624 Pressure ulcer of left heel, stage 4 | CPT/HCPCS: 11042; 11045; A6021 ==

== ENCOUNTER → 2022-09-02 10:53 | Outpatient (BNVA) | payer MEDICAID, SELFPAY | PROVIDERS: PCP Family Medicine; Visit Provider Thoracic Surgery (Cardiothoracic Vascular Surgery) | DX: I96 Gangrene, not elsewhere classified (principal); L89.324 Pressure ulcer of left buttock, stage 4; L89.624 Pressure ulcer of left heel, stage 4; L89.314 Pressure ulcer of right buttock, stage 4 | CPT/HCPCS: 11042; 97597; 97598; A6021 ==

== ENCOUNTER → 2022-09-30 10:53 | Outpatient (BNVA) | payer MEDICAID, SELFPAY | PROVIDERS: PCP Family Medicine; Visit Provider Thoracic Surgery (Cardiothoracic Vascular Surgery) | DX: I96 Gangrene, not elsewhere classified (principal); L89.324 Pressure ulcer of left buttock, stage 4; L89.624 Pressure ulcer of left heel, stage 4; L89.314 Pressure ulcer of right buttock, stage 4 | CPT/HCPCS: 11042; 97597; A6212 ==

== ENCOUNTER → 2022-10-28 10:40 | Outpatient (BNVA) | payer MEDICAID, SELFPAY | PROVIDERS: PCP Family Medicine; Visit Provider Thoracic Surgery (Cardiothoracic Vascular Surgery) | DX: I96 Gangrene, not elsewhere classified (principal); L89.324 Pressure ulcer of left buttock, stage 4; L89.624 Pressure ulcer of left heel, stage 4; L89.314 Pressure ulcer of right buttock, stage 4 | CPT/HCPCS: 11042; 11045; 97597; 97598; A6021 ==

== ENCOUNTER → 2022-11-25 10:33 | Outpatient (BNVA) | payer MEDICAID, SELFPAY | PROVIDERS: PCP Family Medicine; Visit Provider Thoracic Surgery (Cardiothoracic Vascular Surgery) | DX: I96 Gangrene, not elsewhere classified (principal); L89.324 Pressure ulcer of left buttock, stage 4; L89.314 Pressure ulcer of right buttock, stage 4; L89.624 Pressure ulcer of left heel, stage 4 | CPT/HCPCS: 97597; 97598; A6021 ==

== ENCOUNTER → 2022-12-30 10:42 | Outpatient (BNVA) | payer MEDICAID, SELFPAY | PROVIDERS: PCP Family Medicine; Visit Provider Thoracic Surgery (Cardiothoracic Vascular Surgery) | DX: I96 Gangrene, not elsewhere classified (principal); L89.324 Pressure ulcer of left buttock, stage 4; L89.624 Pressure ulcer of left heel, stage 4; L89.314 Pressure ulcer of right buttock, stage 4 | CPT/HCPCS: 11042; 97597; A6021 ==

== ENCOUNTER → 2023-01-25 09:19 | Outpatient (BNVA) | payer MEDICAID, SELFPAY | PROVIDERS: PCP Family Medicine; Visit Provider Thoracic Surgery (Cardiothoracic Vascular Surgery) | DX: I96 Gangrene, not elsewhere classified (principal); L89.324 Pressure ulcer of left buttock, stage 4; L89.624 Pressure ulcer of left heel, stage 4 | CPT/HCPCS: 11042; 97597; A6021 ==

== ENCOUNTER 2023-01-28 15:27 | Emergency (ER) | payer MEDICAID, SELFPAY ==
[2023-01-28 15:32] VITALS: BP 137/74; PULSE 109; RESP 18; TEMP 37.4; O2SAT 93; BMI 29.7
[2023-01-28 17:11] VITALS: BP 132/72; PULSE 110; RESP 16; O2SAT 93
[2023-01-28 17:30] VITALS: PULSE 104; RESP 18; O2SAT 96
[2023-01-28 17:59] LABS: Basophils % 0.4 %; Eosinophils # 0.3 10^3/uL (0.0-0.8); Eosinophils % 3.8 %; Hematocrit 47.7 % (42.0-52.0); Hemoglobin 13.5 g/dL (11.7-16.6); Lymphocytes # 1.2 10^3/uL (0.8-4.8); Lymphocytes % 17.9 %; Mean Corpuscular HGB Conc 28.3 g/dL (30.0-36.0); Mean Corpuscular Hemoglobin 21.5 pg (28.0-34.0); Mean Corpuscular Volume 76.1 fl (80-94); Mean Platelet Volume 9.7 fL (7.4-10.4); Monocytes # 0.3 10^3/uL (0.2-0.9); Neutrophils # 4.91 10^3/uL (1.8-7.7); Neutrophils % 72.3 %; Nucleated Red Blood Cells % 0 %; Platelet Count 245 10^3/cmm (130-400); Red Blood Count 6.27 10^6/uL (4.1-5.3); Red Cell Distribution Width 21.1 % (12.1-15.1); White Blood Count 6.8 10^3/uL (4.0-10.0)
[2023-01-28 18:00] VITALS: PULSE 104; O2SAT 94
[2023-01-28 18:21] LABS: Alanine Aminotransferase 19 U/L (0-41); Albumin Level 4.3 g/dL (3.5-5.2); Alkaline Phosphatase 98 U/L (40-130); Anion Gap 15.1 (5-19); Aspartate Amino Transferase 13 U/L (0-40); Blood Urea Nitrogen 11 mg/dL (8-23); Calcium 9.5 mg/dL (8.5-10.5); Carbon Dioxide 30 mmol/L (22-29); Chloride 96 mmol/L (98-107); Globulin 3.9 g/dL (1.3-4.6); Glomerular Filtration Rate 85.2 mL/min (90-130); Glucose 180 mg/dL (65-115); Osmolality Calculated 288 mOsm/kg (285-295); Potassium 4.1 mmol/L (3.5-5.1); Sodium 137 mmol/L (136-145); Total Bilirubin 0.2 mg/dL (0.15-1.2); Total Protein 8.2 g/dL (6.6-8.7)
[2023-01-28 18:39] LABS: Add Urine Microscopic? YES; Bilirubin Urine Neg (Negative); Blood Urine 2+ (Negative); Glucose Urine UA Norm (Normal); Ketones Urine Negative (Negative); Leukocyte Esterase Urine 2+ (Negative); Nitrate Urine Negative (Negative); Protein Urine Neg (Negative); Specific Gravity, Urine 1.025 (1.005-1.030); Urine Appearance Hazy (CLEAR); Urine Color Yellow (Yellow); Urobilinogen Urine Norm (Negative); pH Urine 5 (5-7)
[2023-01-28 18:40] LABS: RBC Urine 0-4 /hpf (0-2)
[2023-01-28 18:41] LABS: Add Urine Culture? Yes; Mucus Urine 1+ /hpf; Squamous Epithelial Cell Urine 0-4 /hpf (0-5); WBC Urine 25-40 /hpf (0-5)
[2023-01-28 19:27] VITALS: BP 99/67; RESP 16; O2SAT 96
--- NOTE | 2023-01-28 19:51 | W.ED.AMS ---
HPI - Altered Mental Status General: Chief Complaint: Altered Mental Status Stated Complaint: hallucinations Time Seen by Provider: 01/28/23 16:45 History of Present Illness: 62-year-old paraplegic male presents emergency room with a complaint of hallucination for about 3 to 4 weeks. reveals that patient was not evaluated by PCP for similar complaint few days ago but noticed increase in symptoms. Patient with history of recurrent UTI. Patient with recent admission for UTIs present emergency room patient was awake alert able to answer question. Patient with some slurred speech per reviewed that this is chronic for patient. Patient denies any chest pain, shortness of breath, abdominal pain, nausea or vomiting no diarrhea or bloody stool. Associated symptoms: Reports visual hallucinations; Deny delusions, homicidal ideation or suicidal ideation Review of Systems General: Reports: 10 or more systems reviewed and unremarkable except in HPI and below Eyes: Denies: change in vision, blurry vision or blind spots Card: Denies: chest pain, palpitations or irregular heart rhythm GI: Denies: abdominal pain, nausea, vomiting, hematemesis, coffee ground emesis, dysphagia or heartburn : Reports: other (Patient self cath); Denies: flank pain or dysuria Neuro: Denies: headache(s), numbness in extremities, weakness in extremities, sensory changes, lack of coordination, difficulty walking, frequent falls, dizziness or vertigo Psych: Reports: visual hallucinations; Denies: sleeping more, hopelessness, suicidal ideation or homicidal ideation [facility] ED PFSH: Medical History Neurogenic bladder Obstructive pyelonephritis Osteomyelitis Paraplegia Right ureteral calculus Urinary incontinence Surgical History H/O colostomy History of back surgery Family History Mother , at age 54 Cancer melanoma Father , at age 68 Cancer brain tumor Denies family history of Anesthesia complication Bleeding disorder Social History Alcohol intake: current Alcohol intake frequency: holidays/special occasions only Substance/Drug Use: never Adopted: No Caregiver/support person: No Lives independently: No Household members: spouse Marital status: Current occupational status: disabled Physical Exam Const: GENERAL APPEARANCE: well kempt Neck/C-Spine: COMMON NORMALS: no meningeal signs Chest: COMMONS NORMALS: normal inspection of the chest, normal palpation of entire chest wall, normal inspection of the breasts and normal palpation of the breasts Resp: COMMON NORMALS: normal respiratory effort GI: COMMON NORMALS: Soft to palpation; negative for No hepatosplenomegaly present INSPECTION: Yes normal to inspection and Yes GI ostomy present AUSCULTATION: Yes normoactive bowel sounds PALPATION: Yes Soft to palpation, No No hepatosplenomegaly present, No Hepatosplenomegaly present, No Hepatomegaly present, No Splenomegaly present and No Hernia present Neuro: MENINGEAL SIGNS: Yes no meningeal signs, No nuccal rigidity and No Brudzinski's sign present CRANIAL NERVES: Yes CN normal except as noted SPEECH: abnormal speech Psych: COMMON NORMALS: Normal thought process present APPEARANCE: Yes grossly normal and Yes well kempt ATTITUDE: Yes calm SPEECH: Yes slurred MOOD & AFFECT: No depressed mood, No tearful, No fearful, No Labile affect present, No hostile affect, No expansive affect, No constricted affect, No Blunted affect present and No Other affect and mood findings present THOUGHT PROCESS: Normal thought process present THOUGHT CONTENT: No Normal thought content present, No Suicidality present, No Homicidality present, No delusions, Yes Hallucination(s) present and No Ideas of reference present (thought content) MEMORY/COGNITION: Yes cognition grossly impaired Course ED course: She was made comfortable emergency room. Labs obtained including urine. Found to have UTI. Given his presenting symptoms and the abnormal findings my plan was admit patient for IV antibiotics. Patient and the declined admission at this time. Discharged home with [facility]. Follow-up PCP recommended for further evaluation and treatment. Vital Signs: Vital signs: Vital Signs Temperature 99.3 F 01/28/23 20:01 Pulse Rate 104 H 01/28/23 20:01 Respiratory Rate 16 01/28/23 20:01 Blood Pressure 99/67 01/28/23 20:01 Pulse Oximetry 96 01/28/23 20:01 Oxygen Delivery Me thod Room Air 01/28/23 15:32 MDM - Altered Mental Status Medical Decision Making Patient made for comfortable emergency room. She was given IM antibiotics. Discussed lab finding with patient. The need for admission with patient and but they both declined admission at this time. Patient is awake alert and understood the risk of leaving without admission. Differential Diagnosis Likely alcoholic intoxication, altered mental status, delirium, dementia, hypoglycemia, hyponatremia, subarachnoid hemorrhage and sepsis Lab Data 01/28/23 17:42 01/28/23 17:42 Laboratory Results WBC 6.8 10^3/uL (4.0-10.0) 01/28/23 17:42 RBC 6.27 10^6/uL (4.1-5.3) H 01/28/23 17:42 Hgb 13.5 g/dL (11.7-16.6) 01/28/23 17:42 Hct 47.7 % (42.0-52.0) 01/28/23 17: MCV 76.1 fl (80-94) L 01/28/23 17:42 MCH 21.5 pg (28.0-34.0) L 01/28/23 17:42 MCHC 28.3 g/dL (30.0-36.0) L 01/28/23 17:42 RDW 21.1 % (12.1-15.1) H 01/28/23 17:42 Plt Count 245 10^3/cmm (130-400) 01/28/23 17:42 MPV 9.7 fL (7.4-10.4) 01/28/23 17:42 Neut % (Auto) 72.3 % 01/28/23 17:42 Lymph % (Auto) 17.9 % 01/28/23 17:42 [place] % (Auto) 5.0 % 01/28/23 17:42 Eos % (Auto) 3.8 % 01/28/23 17:42 Baso % (Auto) 0.4 % 01/28/23 17:42 Neut # (Auto) 4.91 10^3/uL (1.8-7.7) 01/28/23 17:42 Lymph # (Auto) 1.2 10^3/uL (0.8-4.8) 01/28/23 17:42 [place] # (Auto) 0.3 10^3/uL (0.2-0.9) 01/28/23 17:42 Eos # (Auto) 0.3 10^3/uL (0.0-0.8) 01/28/23 17:42 Baso # (Auto) 0.0 10^3/uL (0.0-0.1) 01/28/23 17:42 Nucleated RBC % (auto) 0 % 01/28/23 17:42 Nucleated RBCs # 0.0 /100WBC 01/28/23 17:42 Sodium 137 mmol/L (136-145) 01/28/23 17:42 Potassium 4.1 mmol/L (3.5-5.1) 01/28/23 17:42 Chloride 96 mmol/L (98-107) L 01/28/23 17:42 Carbon Dioxide 30 mmol/L (22-29) H 01/28/23 17:42 Anion Gap 15.1 (5-19) 01/28/23 17:42 BUN 11 mg/dL (8-23) 01/28/23 17:42 Creatinine 0.9 mg/dL (0.7-1.2) 01/28/23 17:42 GFR Calculation 85.2 mL/min (90-130) L 01/28/23 17:42 Glucose 180 mg/dL (65-115) H 01/28/23 17:42 Calculated Osmolality 288 mOsm/kg (285-295) 01/28/23 17:42 Calcium 9.5 mg/dL (8.5-10.5) 01/28/23 17:42 Magnesium 2.0 mg/dL (1.7-2.3) 01/28/23 17:42 Total Bilirubin 0.2 mg/dL (0.15-1.2) 01/28/23 17:42 AST 13 U/L (0-40) 01/28/23 17:42 ALT 19 U/L (0-41) 01/28/23 17:42 Alkaline Phosphatase 98 U/L (40-130) 01/28/23 17:42 Total Protein 8.2 g/dL (6.6-8.7) 01/28/23 17:42 Albumin 4.3 g/dL (3.5-5.2) 01/28/23 17:42 Globulin 3.9 g/dL (1.3-4.6) 01/28/23 17:42 Urine Color Yellow (Yellow) 01/28/23 18:14 Urine Appearance Hazy (CLEAR) A 01/28/23 18:14 Urine pH 5 (5-7) 01/28/23 18:14 Ur Specific [place] 1.025 (1.005-1.030) 01/28/23 18:14 Urine Protein Neg (Negative) 01/28/23 18:14 Urine Glucose (UA) Norm (Normal) 01/28/23 18:14 Urine Ketones Negative (Negative) 01/28/23 18:14 Urine Blood 2+ (Negative) H 01/28/23 18:14 Urine Nitrate Negative (Negative) 01/28/23 18:14 Urine Bilirubin Neg (Negative) 01/28/23 18:14 Urine Urobilinogen Norm mg/dL (Negative) 01/28/23 18:14 Ur Leukocyte Esterase 2+ (Negative) H 01/28/23 18:14 Urine RBC 0-4 /hpf (0-2) H 01/28/23 18:14 Urine WBC 25-40 /hpf (0-5) H 01/28/23 18:14 Ur Squamous Epith Cells 0-4 /hpf (0-5) H 01/28/23 18:14 Amorphous Sediment Not Reportable 01/28/23 18:14 Urine Bacteria None /hpf (NONE) 01/28/23 18:14 Urine Mucus 1+ /hpf 01/28/23 18:14 Urine Yeast 1+ /hpf H 01/28/23 18:14 Discharge Plan Discharge Patient Disposition: Home Clinical Impression: Paraplegia, Recurrent UTI, Hallucination Condition: Stable Prescriptions: New Cipro 500 mg tablet 500 mg PO BID Qty: 20 0RF No Action baclofen 20 mg tablet 40 mg PO TID gabapentin 800 mg tablet 800 mg PO TID mirtazapine 15 mg tablet 15 mg PO .AT NIGHT beet PO DAILY oxybutynin chloride 5 mg tablet See Rx Instructions .ROUTE .COMPLEX Qty: 60 12RF Dose Instruction: TAKE 1 TABLET BY MOUTH TWICE DAILY Rx Instructions: TAKE 1 TABLET BY MOUTH TWICE DAILY Discharge Orders: Discharge ED (Routine); Ordered 01/28/23 Ordered By: Ramses Nuñez Referrals: Jonathan Pham [Primary Care Provider] - Discharge Diet: Advance as tolerated Discharge Activity: Resume usual activity Patient Instructions: Hyponatremia (ED), Benzodiazepine Use Disorder (ED), Dementia (ED), Non-diabetic Hypoglycemia (ED), Hypoglycemia in a Person with Diabetes (ED), Concussion (ED), Alcohol Intoxication (ED), Subarachnoid Hemorrhage (GEN), Altered Mental Status (ED), Opioid Safety, Pain Management Coding Level of Care Code ED [facility] for Radha Roque
[2023-01-28] MEDS: cefTRIAXone 1,000 MG in water for injection-sterile 2.1 ML 2.1 MG IM (19:54)
[2023-01-28 20:01] VITALS: BP 99/67; PULSE 104; RESP 16; TEMP 37.4; O2SAT 96
[2023-01-29 19:09] LABS: Glucose Point of Care 111 mg/dL (70-110)
== END 2023-01-28 20:02 | disposition home or self-care (01) ==
PROVIDERS: Emergency Provider Family Medicine; PCP Family Medicine
DX: N39.0 Urinary tract infection, site not specified (principal); G82.20 Paraplegia, unspecified; R44.1 Visual hallucinations
CPT/HCPCS: 36415; 36416; 80053; 81001; 82962; 83735; 85025; 87077; 87086; 87186; 96372; 99284; J0696

== ENCOUNTER 2023-01-29 09:04 | Inpatient (IN) | payer MEDICAID, SELFPAY ==
[2023-01-29] VITALS (34 sets, daily range): BP systolic 92–178; BP diastolic 55–114; PULSE 77–112; RESP 13–32; TEMP 36.6–37.3; O2SAT 86–100
--- NOTE | 2023-01-29 09:20 | W.ED.AMS ---
HPI - Altered Mental Status General: Chief Complaint: Altered Mental Status Stated Complaint: ams Time Seen by Provider: 01/29/23 09:20 History of Present Illness: Patient presents to the ER complaints of altered mental status. Patient has more confusion and combative and is fallen 4 times since yesterday. Nursing staff it took care of him yesterday and today say he is more altered today and is less verbal in his response. Patient will follow commands but is very hard to understand what patient is saying. Nursing staff says this is worse than it was yesterday. Patient was diagnosed with a UTI and given 1 g Rocephin and discharged home with a prescription for Cipro which she did not feel. Review of Systems General: Reports: ROS unobtainable due to mental status PFSH ED PFSH: Medical History (Updated 01/29/23 @ 14:01 by Mynor Yoo MD) Diabetes mellitus Neurogenic bladder Obstructive pyelonephritis Osteomyelitis Paraplegia Right ureteral calculus Urinary incontinence Surgical History H/O colostomy History of back surgery Family History Mother , at age 54 Cancer melanoma Father , at age 68 Cancer brain tumor Denies family history of Anesthesia complication Bleeding disorder Social History Alcohol intake: current Alcohol intake frequency: holidays/special occasions only Substance/Drug Use: never Adopted: No Caregiver/support person: No Lives independently: No Household members: spouse Marital status: Current occupational status: disabled Physical Exam Const: COMMON NORMALS: no acute distress, average body habitus, healthy appearing, alert and well nourished EXAM LIMITATIONS: altered mental status HENMT: COMMON NORMALS: normocephalic, atraumatic, hearing grossly normal bilaterally, external ears normal, Normal external nose present and moist oral mucous membranes HEAD & SCALP: normocephalic and atraumatic NOSE: Normal external nose present EXTERNAL EAR: Yes external ears normal Neck/C-Spine: COMMON NORMALS: full ROM, no lymphadenopathy, supple, no meningeal signs, no JVD and Thyroid normal THYROID: Thyroid normal Chest: COMMONS NORMALS: normal inspection of the chest and normal palpation of entire chest wall Resp: COMMON NORMALS: normal respiratory effort, No retractions, No use of accessory muscles and clear to auscultation bilaterally AUSCULTATION: clear to auscultation bilaterally Cardio: COMMON NORMALS: no JVD, regular rhythm, S1 normal heart sound present, S2 normal heart sound present and No gallops present (Cardio); negative for regular rate (Tachycardic) RATE: abnormal rate (Tachycardic) RHYTHM: regular rhythm HEART SOUNDS: S1 normal heart sound present and S2 normal heart sound present GI: COMMON NORMALS: Normal to inspection, nondistended, normoactive bowel sounds present, Soft to palpation, non-tender (Ostomy noted in the left abdomen), No hepatosplenomegaly present and no masses PALPATION: Yes Soft to palpation and Yes No hepatosplenomegaly present Neuro: SENSORIUM/ORIENTATION: Yes alert MENINGEAL SIGNS: Yes no meningeal signs Course Vital Signs: Vital signs: Vital Signs Temperature 99.1 F 01/29/23 09:07 Pulse Rate 100 01/29/23 14:00 Respiratory Rate 18 01/29/23 12:30 Blood Pressure 110/71 01/29/23 14:00 Pulse Oximetry 98 01/29/23 14:00 Oxygen Delivery Me thod Nasal Cannula 01/29/23 12:30 Oxygen Flow Rate 2 01/29/23 12:30 MDM - Altered Mental Status Medical Decision Making Patient presents to the ER today with worsening mental status. Patient was diagnosed yesterday with a urinary tract infection and given Rocephin in the ER and then sent home with Cipro which she did not feel. Today patient was further evaluated by physical exam lab work and imaging. Is found the patient still has urinary tract infection as well as multiple decubitus ulcers on his sacral area and right foot with osteomyelitis in both places Dr. Yoo was consulted for further evaluation and treatment and agreed to place the patient in the ICU. Differential Diagnosis Likely altered mental status; Unlikely alcoholic intoxication, delirium, dementia, hypoglycemia, hyponatremia, subarachnoid hemorrhage or sepsis Medical Records I reviewed the patient's medical records. Lab Data I reviewed the patient's lab results. 01/29/23 09:41 01/29/23 09:[address] 01/29/23 09:45 IMPRESSION: No acute intracranial abnormality. Chest X-Ray 01/29/23 11:44 Impression: Negative for acute cardiopulmonary disease. Abdomen/Pelvis CT 01/29/23 12:08 IMPRESSION: 1. No acute findings. 2. Chronic bilateral ischial decubitus ulcers with bone sclerosis and erosion suggesting chronic osteomyelitis. No change since 07/17/2019. 3. Incidental findings above. COMMENTS: For patients with an IVC filter, recommend assessment for a management plan for the patient's IVC filter. If there is no established management plan, recommend referral to an interventional clinician on a nonemergent basis for evaluation. Foot X-Ray 01/29/23 12:35 Impression: 1. Diffuse demineralization of the bones of the foot. 2. Sclerosis of the posterior calcaneus which could indicate chronic osteomyelitis. Laboratory Results WBC 8.6 10^3/uL (4.0-10.0) 01/29/23 09:41 RBC 5.63 10^6/uL (4.1-5.3) H 01/29/23 09:41 Hgb 12.1 g/dL (11.7-16.6) 01/29/23 09:41 Hct 42.5 % (42.0-52.0) 01/29/23 09:41 MCV 75.5 fl (80-94) L 01/29/23 09:41 MCH 21.5 pg (28.0-34.0) L 01/29/23 09:41 MCHC 28.5 g/dL (30.0-36.0) L 01/29/23 09:41 RDW 20.6 % (12.1-15.1) H 01/29/23 09:41 Plt Count 227 10^3/cmm (130-400) 01/29/23 09:41 MPV 10.3 fL (7.4-10.4) 01/29/23 09:41 Neut % (Auto) 82.8 % 01/29/23 09:41 Lymph % (Auto) 7.0 % 01/29/23 09:41 [place] % (Auto) 5.6 % 01/29/23 09:41 Eos % (Auto) 3.5 % 01/29/23 09:41 Baso % (Auto) 0.5 % 01/29/23 09:41 Neut # (Auto) 7.12 10^3/uL (1.8-7.7) 01/29/23 09:41 Lymph # (Auto) 0.6 10^3/uL (0.8-4.8) L 01/29/23 09:41 [place] # (Auto) 0.5 10^3/uL (0.2-0.9) 01/29/23 09:41 Eos # (Auto) 0.3 10^3/uL (0.0-0.8) 01/29/23 09:41 Baso # (Auto) 0.0 10^3/uL (0.0-0.1) 01/29/23 09:41 Nucleated RBC % (auto) 0 % 01/29/23 09:41 Nucleated RBCs # 0.0 /100WBC 01/29/23 09:41 Specimen Type Arterial 01/29/23 12:20 Sample Site Radial, left 01/29/23 12:20 ABG pH 7.42 (7.35-7.45) 01/29/23 12:20 ABG pCO2 41.5 mmHg (35-45) 01/29/23 12:20 ABG pO2 131.0 mmHg (80.0-100.0) H 01/29/23 12:20 ABG HCO3 26.7 mmol/L (22-26) H 01/29/23 12:20 ABG O2 Saturation 98.1 01/29/23 12:20 ABG Base Excess 1.9 mmol/L (-2.0-2.0) 01/29/23 12:20 Jose Test Pos 01/29/23 12:20 A-a O2 Gradient Not Reportable 01/29/23 12:20 Hematocrit 40.0 % (42-52) L 01/29/23 12:20 Hgb O2 Saturation 96.5 % (95-100) 01/29/23 12:20 Carboxyhemoglobin 1.2 %THgb (0.4-20.1) 01/29/23 12:20 Methemoglobin 0.5 % (0.4-1.5) 01/29/23 12:20 Total Hemoglobin 13.1 g/dL (14-18) L 01/29/23 12:20 Sodium 140.0 mmol/L (131-143) 01/29/23 12:20 Potassium 4.2 mmol/L (3.5-5.0) 01/29/23 12:20 Glucose 137.0 mg/dL (70-115) H 01/29/23 12:20 Ionized Calcium 1.2 mmol/L (1.1-1.4) 01/29/23 12:20 O2 Delivery Device Nc 01/29/23 12:20 O2 Liters/Min 2.0 % 01/29/23 12:20 Recruiting Internship ID Octavio 01/29/23 12:20 Sodium 138 mmol/L (136-145) 01/29/23 09:41 Potassium 4.7 mmol/L (3.5-5.1) 01/29/23 09:41 Chloride 102 mmol/L (98-107) 01/29/23 09:41 Carbon Dioxide 27 mmol/L (22-29) 01/29/23 09:41 Anion Gap 13.7 (5-19) 01/29/23 09:41 BUN 11 mg/dL (8-23) 01/29/23 09:41 Creatinine 1.0 mg/dL (0.7-1.2) 01/29/23 09:41 GFR Calculation 75.5 mL/min (90-130) L 01/29/23 09:41 Glucose 178 mg/dL (65-115) H 01/29/23 09:41 Estimat Average Glucose 183 01/29/23 09:41 Hemoglobin A1c 8.0 % (4.0-6.0) H 01/29/23 09:41 Calculated Osmolality 290 mOsm/kg (285-295) 01/29/23 09:41 Lactic Acid 1.7 mmol/L (0.5-2.2) 01/29/23 09:41 Calcium 8.6 mg/dL (8.5-10.5) 01/29/23 09:41 Total Bilirubin 0.3 mg/dL (0.15-1.2) 01/29/23 09:41 AST 17 U/L (0-40) 01/29/23 09:41 ALT 15 U/L (0-41) 01/29/23 09:41 Alkaline Phosphatase 83 U/L (40-130) 01/29/23 09:41 Total Protein 7.1 g/dL (6.6-8.7) 01/29/23 09:41 Albumin 3.7 g/dL (3.5-5.2) 01/29/23 09:41 Globulin 3.4 g/dL (1.3-4.6) 01/29/23 09:41 TSH 1.22 uIU/mL (0.27-4.20) 01/29/23 09:41 Urine Color Yellow (Yellow) 01/29/23 11:15 Urine Appearance Clear (CLEAR) 01/29/23 11:15 Urine pH 5 (5-7) 01/29/23 11:15 Ur Specific [place] 1.020 (1.005-1.030) 01/29/23 11:15 Urine Protein Neg (Negative) 01/29/23 11:15 Urine Glucose (UA) Norm (Normal) 01/29/23 11:15 Urine Ketones Negative (Negative) 01/29/23 11:15 Urine Blood 3+ (Negative) H 01/29/23 11:15 Urine Nitrate Negative (Negative) 01/29/23 11:15 Urine Bilirubin Neg (Negative) 01/29/23 11:15 Urine Urobilinogen Norm mg/dL (Negative) 01/29/23 11:15 Ur Leukocyte Esterase 2+ (Negative) H 01/29/23 11:15 Urine RBC 5-10 /hpf (0-2) H 01/29/23 11:15 Urine WBC 25-40 /hpf (0-5) H 01/29/23 11:15 Ur Squamous Epith Cells 0-4 /hpf (0-5) H 01/29/23 11:15 Amorphous Sediment 1+ /hpf 01/29/23 11:15 Urine Bacteria Trace /hpf (NONE) 01/29/23 11:15 Urine Mucus 2+ /hpf 01/29/23 11:15 Urine Yeast 1+ /hpf H 01/29/23 11:15 Urine Opiates Screen Negative ng/mL (Negative) 01/29/23 11:15 Ur Barbiturates Screen Negative ng/mL (Negative) 01/29/23 11:15 Ur Phencyclidine Scrn Negative ng/mL (Negative) 01/29/23 11:15 Ur Amphetamines Screen Negative ng/mL (Negative) 01/29/23 11:15 U Benzodiazepines Scrn Positive ng/mL (Negative) H 01/29/23 11:15 Urine Cocaine Screen Negative ng/mL (Negative) 01/29/23 11:15 U Marijuana (THC) Screen Negative ng/mL (Negative) 01/29/23 11:15 Ethyl Alcohol < 10 mg/dL (0-10) 01/29/23 09:41 EKG Data EKG 1: I personally reviewed and interpreted this EKG as follows: EKG interpretation date: 01/29/23 EKG interpretation time: 09:28 Prior EKG tracings: not available for review Interpretation: EKG showed a ventricular rate of 107 bpm, PA interval 180, QRS duration 77, QTc of 382, sinus tachycardia with nonspecific T wave abnormalities. Discharge Plan Discharge Patient Disposition: Admitted As Inpatient Admit Provider: Mynor Yoo Clinical Impression: Altered mental status, Decubitus ulcer, Osteomyelitis Condition: Stable Coding Level of Care Code ED [employer] Fabricator for Radha Roque
--- NOTE | 2023-01-29 09:21 | ECG_ITS ---
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 Measurements Intervals [place] Rate: 107 P: 44 VT: 180 QRS: 22 QRSD: 77 T: 31 QT: 320 QTc: 427 Interpretive Statements SINUS TACHYCARDIA NONSPECIFIC T-WAVE ABNORMALITY Compared to ECG 07/17/2019 10:09:25 T-wave abnormality now present Sinus rhythm no longer present Prolonged QT interval no longer present Electronically Signed On 01-29-2023 11:27:17 CDT by Toña Pérez M.D. [id number]
--- NOTE | 2023-01-29 09:45 | CTR_ITS ---
PROCEDURE INFORMATION: Exam: CT Head Without Contrast Exam date and time: 01/29/2023 9:57 AM Age: 62 years old Clinical indication: Altered mental status/memory loss; Patient HX: PT moving best pics possible; Additional info: AMS TECHNIQUE: Imaging protocol: Computed tomography of the head without contrast. Radiation optimization: All CT scans at this facility use at least one of these dose optimization techniques: automated exposure control; mA and/or kV adjustment per patient size (includes targeted exams where dose is matched to clinical indication); or iterative reconstruction. REPORTING DATA: Count of CT and Cardiac NM exams in prior 12 months: This patient has received 0 known CTs and 0 known cardiac nuclear medicine studies in the 12 months prior to the current study. COMPARISON: CT head wo con* [id number] 07/17/2019 9:04 AM RADIATION DOSE METRICS: Total DLP (mGy-cm): 1182.3 FINDINGS: Limitations: Mild motion artifact. Brain: The brain is unremarkable. There is no mass effect or significant white matter disease. There is no acute intracranial hemorrhage. Cerebral ventricles: There is no significant ventricular dilation. The basal cisterns are unremarkable. Paranasal sinuses: The paranasal sinuses are clear. Mastoid air cells: The mastoid air cells are clear. Bones/joints: The calvarium is intact. Soft tissues: The visible extracranial soft tissues are unremarkable. CT/CT head wo con* [id number] IMPRESSION: No acute intracranial abnormality.
[2023-01-29 09:55] LABS: Basophils % 0.5 %; Eosinophils # 0.3 10^3/uL (0.0-0.8); Eosinophils % 3.5 %; Hematocrit 42.5 % (42.0-52.0); Hemoglobin 12.1 g/dL (11.7-16.6); Lymphocytes # 0.6 10^3/uL (0.8-4.8); Mean Corpuscular HGB Conc 28.5 g/dL (30.0-36.0); Mean Corpuscular Hemoglobin 21.5 pg (28.0-34.0); Mean Corpuscular Volume 75.5 fl (80-94); Mean Platelet Volume 10.3 fL (7.4-10.4); Monocytes # 0.5 10^3/uL (0.2-0.9); Monocytes % 5.6 %; Neutrophils # 7.12 10^3/uL (1.8-7.7); Neutrophils % 82.8 %; Nucleated Red Blood Cells % 0 %; Platelet Count 227 10^3/cmm (130-400); Red Blood Count 5.63 10^6/uL (4.1-5.3); Red Cell Distribution Width 20.6 % (12.1-15.1); White Blood Count 8.6 10^3/uL (4.0-10.0)
--- NOTE | 2023-01-29 10:08 | PC.NURSE ---
PHYSICIAN NOTIFIED OF PT CHANGE IN SPEECH SINCE YESTERDAY. PHYSICIAN ORDERED HEAD CT. NO STROKE ALERT CALLED PER VERBAL ORDER OF PHYSICIAN.
[2023-01-29 10:19] LABS: Alanine Aminotransferase 15 U/L (0-41); Albumin Level 3.7 g/dL (3.5-5.2); Alkaline Phosphatase 83 U/L (40-130); Anion Gap 13.7 (5-19); Aspartate Amino Transferase 17 U/L (0-40); Blood Urea Nitrogen 11 mg/dL (8-23); Calcium 8.6 mg/dL (8.5-10.5); Carbon Dioxide 27 mmol/L (22-29); Chloride 102 mmol/L (98-107); Globulin 3.4 g/dL (1.3-4.6); Glomerular Filtration Rate 75.5 mL/min (90-130); Glucose 178 mg/dL (65-115); Lactic Sepsis W/Reflex 1.7 mmol/L (0.5-2.2); Osmolality Calculated 290 mOsm/kg (285-295); Potassium 4.7 mmol/L (3.5-5.1); Sodium 138 mmol/L (136-145); Total Bilirubin 0.3 mg/dL (0.15-1.2); Total Protein 7.1 g/dL (6.6-8.7)
[2023-01-29 11:27] LABS: Add Urine Microscopic? YES; Bilirubin Urine Neg (Negative); Blood Urine 3+ (Negative); Glucose Urine UA Norm (Normal); Ketones Urine Negative (Negative); Leukocyte Esterase Urine 2+ (Negative); Nitrate Urine Negative (Negative); Protein Urine Neg (Negative); Urine Appearance Clear (CLEAR); Urine Color Yellow (Yellow); Urobilinogen Urine Norm (Negative); WBC Urine 25-40 /hpf (0-5); pH Urine 5 (5-7)
[2023-01-29 11:28] LABS: Bacteria Urine TRACE /hpf; Mucus Urine 2+ /hpf; Squamous Epithelial Cell Urine 0-4 /hpf (0-5)
[2023-01-29 11:29] LABS: Add Urine Culture? Yes; Amorphous Sediment Urine 1+ /hpf
--- NOTE | 2023-01-29 11:30 | PC.PHAR ---
waiting for pts to call back to verify meds
--- NOTE | 2023-01-29 11:44 | XR_ITS ---
WS: [id number] Portable AP supine chest, 01/29/2023 Clinical Data: AMS Comparison: Portable chest, 07/17/2019. Findings: No nodules, masses or effusions are seen. The heart is normal. The pulmonary vascularity is not increased. No pneumonia or pneumothorax is seen. The left infusion catheter remains in the same position. The posterior thoracic fusion with bilateral pedicle screws and connecting rods remains sta ble. XR/XR chest 1V portable [id number] Impression: Negative for acute cardiopulmonary disease.
--- NOTE | 2023-01-29 12:07 | PC.NURSE ---
DR. PEREZ ROUNDED ON PT. PT HAS ULCER OF RIGHT HEEL STAGE 4, LEFT BUTTOCK ULCER STAGE 3-4, RIGHT BUTTOCK ULCER STAGE 4. DR. PEREZ GAVE VERBAL ORDER TO LEAVE WOUNDS OPEN TO AIR UNTIL FURTHER ORDERS GIVEN.
--- NOTE | 2023-01-29 12:08 | CTR_ITS ---
PROCEDURE INFORMATION: Exam: CT Abdomen And Pelvis With Contrast Exam date and time: 01/29/2023 12:51 PM Age: 62 years old Clinical indication: Other: AMS, UTI, multiple buttock/sacral decub; Additional info: AMS, UTI, multiple buttock/sacral decubs TECHNIQUE: Imaging protocol: Computed tomography of the abdomen and pelvis with contrast. Radiation optimization: All CT scans at this facility use at least one of these dose optimization techniques: automated exposure control; mA and/or kV adjustment per patient size (includes targeted exams where dose is matched to clinical indication); or iterative reconstruction. Contrast material: OMNI 350; Contrast volume: 100 ml; Contrast route: INTRAVENOUS (IV); REPORTING DATA: Count of CT and Cardiac NM exams in prior 12 months: This patient has received 0 known CTs and 0 known cardiac nuclear medicine studies in the 12 months prior to the current study. COMPARISON: CT abdomen pelvis w con* [id number] 07/17/2019 9:11 AM RADIATION DOSE METRICS: Total DLP (mGy-cm): 949.57 FINDINGS: Lungs: There is subsegmental atelectasis in the lung bases. Liver: The liver is normal. Gallbladder and bile ducts: Cholelithiasis is present. There is no sign of cholecystitis. There is no intrahepatic or extrahepatic bile duct dilation. Pancreas: The pancreas is unremarkable. Spleen: The spleen is mildly enlarged. Adrenal glands: The adrenal glands are unremarkable. Kidneys and ureters: There is cortical scarring in the lateral right upper pole. No hydronephrosis or stones. The left kidney and ureter are unremarkable. Stomach and bowel: The stomach is decompressed, preventing meaningful evaluation of wall thickness. The small bowel is nondilated. Unremarkable left descending colostomy. The sigmoid remnant is unremarkable. No sign of obstruction or inflammation in the colon. No peristomal hernia. Appendix: The appendix is normal. Intraperitoneal space: There is no free air or significant intraperitoneal free fluid. Vasculature: There is mild aortic atherosclerotic disease. The portal, splenic and superior mesenteric veins are patent. There is a filter in the inferior vena cava positioned below the level of the renal veins. The IVC is patent above and below the filter. Lymph nodes: There is no lymphadenopathy in the retroperitoneum, mesentery, pelvis or inguinal regions. Urinary bladder: The Alonso catheter is appropriately positioned with the bulb and tip within the bladder lumen. The urinary bladder is decompressed, preventing meaningful evaluation of wall thickness. Reproductive: The prostate and seminal vesicles are unremarkable. Bones/joints: There is bone sclerosis in ischium and inferior pubic ramus bilaterally. There is bone sclerosis at S4. S5 and the coccyx are eroded. There are chronic bilateral L5 pars defects without spondylolisthesis. There is moderate degenerative disease in the lumbar spine. Posterolateral fusion is partially imaged in midthoracic spine. There is moderate degenerative disease of both hips. There is moderate heterotopic ossification adjacent to the left hip. No pelvic or hip fracture. Soft tissues: There is subcutaneous edema and skin thickening associated with bilateral deep ischial decubitus ulcers. The gluteal cleft is thickened and there is thickened soft tissue extending over the posterior aspect of the sacrum. Unremarkable left colostomy. No peristomal hernia. There is laxity of the lower abdominal wall in the inguinal region bilateral a without true hernia. CT/CT abdomen pelvis w con* [id number] IMPRESSION: 1. No acute findings. 2. Chronic bilateral ischial decubitus ulcers with bone sclerosis and erosion suggesting chronic osteomyelitis. No change since 07/17/2019. 3. Incidental findings above. COMMENTS: For patients with an IVC filter, recommend assessment for a management plan for the patient's IVC filter. If there is no established management plan, recommend referral to an interventional clinician on a nonemergent basis for evaluation.
--- NOTE | 2023-01-29 12:19 | P.CONIM_ITS ---
Providers/Reason For Consult Consulting Physician/Specialty*: Mynor Yoo MD Reason for Consult*: Mental status issues Requesting Physician: Dr. Tafoya Primary Care Provider: Jonathan Pham History of Present Illness History of Present Illness Israel Mullen is a 62 year old male who presented to the emergency department with mental status changes. I am asked to potentially admit the patient to the hospital secondary to UTI and acute encephalopathy. No family is present. History is obtained by discussing with the emergency department, and reviewing previous notes. Patient himself is not able to give history. I tried to call family, but neither cell phone of or . From the emergency department physician he was combative, with worsening mental status and had fallen out of bed since yesterday. He was seen in the ER, on and diagnosed with a UTI given an injection of Rocephin, and a prescription for ciprofloxacin. The initial complaint at that time was hallucinations, for 3 to 4 weeks. I could not find any history of drug use disorder, or alcoholism. He is also being seen at wound care clinic. It appears his last visit there was January 25 and multiple lesions are being treated on his heel, and buttocks. I cannot find if he has had a fever at home. Here in the emergency department his temperature is 99.1, and systolic blood pressure is 90. Alonso catheter has been placed. Lactate is not elevated. He does not have a weight entered yet, which we are addressing now. I am giving above bolus of LR currently, monitoring his response to it closely, drawing blood cultures, initiating meropenem and vancomycin. 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 With this history, and the wounds on him and concern of of potential sepsis, a CT scan of his abdomen pelvis with contrast is being ordered. Also generated a sepsis bolus considering he has significant encephalopathy, source of infection, tachycardia, since being in the emergency department his systolic blood pressures dropped from 140 to 92. Review of Systems General: Reports: ROS unobtainable due to medical condition Medications/Allergies Home Medications Medication Instructions Recorded Confirmed Last Taken Type gabapentin 800 mg tablet 800 mg PO TID 07/20/19 01/29/23 01/29/23 History mirtazapine 15 mg tablet 15 mg PO QPM 11/06/20 01/29/23 01/28/23 History ciprofloxacin HCl 500 mg tablet 500 mg PO BID #20 tabs 01/28/23 01/29/23 Unknown Rx (Cipro) cyclobenzaprine 10 mg tablet 10 mg PO Q8H PRN Pain 01/29/23 01/29/23 01/29/23 History metformin 500 mg tablet 500 mg PO BID 01/29/23 01/29/23 01/29/23 History methocarbamol 500 mg tablet 500 mg PO QID 01/29/23 01/29/23 01/29/23 History oxybutynin chloride 5 mg tablet 5 mg PO BID 01/29/23 01/29/23 01/29/23 History quetiapine 25 mg tablet 25 mg PO BID 01/29/23 01/29/23 01/29/23 History thiamine HCl (vitamin B1) 100 mg 100 mg PO DAILY 01/29/23 01/29/23 01/29/23 History tablet Allergies Allergy/AdvReac Type Severity Reaction Status Date / Time Penicillins Allergy Unknown NA Verified 01/28/23 15:40 PFSH Acute PFSH: Medical History (Updated 01/29/23 @ 14:01 by Mynor Yoo MD) Diabetes mellitus Neurogenic bladder Obstructive pyelonephritis Osteomyelitis Paraplegia Right ureteral calculus Urinary incontinence Surgical History H/O colostomy History of back surgery Family History Mother , at age 54 Cancer melanoma Father , at age 68 Cancer brain tumor Denies family history of Anesthesia complication Bleeding disorder Social History Alcohol intake: current Alcohol intake frequency: holidays/special occasions only Substance/Drug Use: never Adopted: No Caregiver/support person: No Lives independently: No Household members: spouse Marital status: Current occupational status: disabled Vitals/I&O/Wt Last Vital Signs Temp 99.1 F 01/29/23 09:07 Pulse 108 H 01/29/23 12:09 Resp 18 01/29/23 12:09 BP 92/66 01/29/23 12:09 Pulse Ox 98 01/29/23 12:09 O2 Del Method Nasal Cannula 01/29/23 11:00 O2 Flow Rate 2 01/29/23 11:00 Weight last 48 hrs Weight 86.183 kg Physical Exam Narrative: Patient appears to look and round with stimulus. Vital signs reviewed HEENT: Pupils equally round. Oropharynx dry. Neck is supple. No lymphadenopathy or thyromegaly Cardiovascular tachycardic. No obvious murmur. Port is noted left chest without erythema Lungs clear no wheezing or crackles Abdomen is soft. No obvious mass. Ostomy noted. Stool in ostomy. Back demonstrates multiple decubiti, tunneled, likely all stage IV over both gluteal areas and sacrum. The one on the right has significant drainage, and odor. exam demonstrates Alonso Extremities show no cyanosis clubbing. Atrophy is noted. No significant edema. Some excoriations and a distal second toe amputation that is well-healed on the right. On the left there is a significant heel ulcer but no surrounding erythema. Perhaps slight odor. Findings above Neuro: Opens eyes to stimuli. Follows a few minor commands. Tries to voice a response but has significant difficulty and I cannot truly understand them. Urinary Catheter Management: Alonso: Cath Placed During This Visit: yes Urinary Catheter Date of Insertion: 01/29/23 Urinary Catheter Time of Insertion: 11:17 Sepsis: Date exam was performed: 01/29/23 Time exam was performed: 13:59 Data 01/29/23 09:41 01/29/23 09:41 Other Labs: By my read demonstrates postoperative back with rods. No obvious infiltrate. EKG demonstrates a heart rate of 107, normal axis, nonspecific ST-T wave changes. Blood cultures are drawn MCV is 75 ABG on 2 L demonstrates a pH 7.42, PCO2 41, PO2 of 131 LFTs are normal Lactic acid 1.7 Albumin 3.7 Urinalysis with 5-10 red blood cells, 25-40 white blood cells. Negative nitrates. Trace bacteria. 1+ yeast. Micro: Microbiology 01/29/23 12:09 Blood Culture - Preliminary Blood SPECIMEN COLLECTED 01/29/23 12:06 Blood Culture - Preliminary Blood SPECIMEN COLLECTED A&P Assessment and plan (1) Sepsis: Patient appears to have sepsis He has evidence of endorgan dysfunction with acute encephalopathy His white blood cell count is not elevated, but he likely has chronic suppression of his immune system with chronic osteomyelitis. He is tachycardic. His systolic blood pressure in the ER has gone from 140 to approximately 90 over the time he has been there. Lactic acid is not yet elevated. I initiated sepsis protocol fluids, obtain blood cultures, and initiated antibiotics in the emergency department. I believe his source of sepsis is likely his decubiti, specifically right ischial. This has tunneling, significant odor, discharge. Continue IV antibiotics with meropenem and vancomycin Await cultures Surgical consult regarding decubiti. I spoke briefly with Dr. Guzman regarding the patient and my concerns Other potential sources of infection could be urine, or port. (2) Acute metabolic encephalopathy: I believe this is related to sepsis The patient is not unresponsive. He will, awake, follow a few commands, and then go back to sleep. Neck seems supple at this time. He has not had any vomiting that I can discern, at least in the emergency department. Continue to follow closely for improvement (3) Recurrent UTI: Patient was recently in the emergency department, got diagnosed with a UTI At that time he got Rocephin IV. This could potentially negate his blood cultures. He was seen in the emergency department secondary to concern of hallucinations for 3 weeks or more. Await urine culture No evidence of obstruction on CT Note that patient intermittently self caths at home. (4) Osteomyelitis: Patient with history of osteomyelitis, and evidence of osteomyelitis in his heel and pelvis. He may benefit from infectious disease referral as an outpatient, or potentially consult. For now IV antibiotics are indicated secondary to concerns above Plan Paraplegia. Note he is on multiple other medications at home such as gabapentin, cyclobenzaprine, Robaxin, mirtazapine, oxybutynin. These will need to be addressed when he is able to take p.o. I would certainly have a concern i f they are not restarted that not giving his muscle relaxants over long periods could cause withdrawal Type 2 diabetes. Initiate sliding scale insulin Multiple other medical problems as outlined in past medical history Full code currently. I tried multiple times to reach family and I could not Heparin for DVT prophylaxis, subcutaneous Consult Attestations Medical Necessity Statement: Will require greater than 2 midnights stay secondary to sepsis, acute encephalopathy, marked change in blood pressure Critical Care Time: The high probability of a clinically significant, sudden or life threatening deterioration of the patient's [neurologic, infectious] system(s) required my full and direct attention, intervention and personal management. The critical care time is as shown. This time is in addition to time spent performing any reported procedures but includes the following: [x] Data and vital sign review and interpretation [x] Patient assessment, examination and intervention [x] Documentation [x] Medication orders and management Critical Care Time (min): 54 Coding Level of Care Code Critical Care >/= 30 minutes Critical care time (in minutes): 54 The high probability of a clinically significant, sudden or life threatening deterioration, as referenced in this documentation, required my full and direct attention, intervention and personal management. The critical care time shown is in addition to time spent performing any reported separately billable procedures and includes the following: [x] Data and vital sign review and interpretation [x ] Patient assessment, examination and intervention [x] Medication orders and management [x] Patient/Family updates as able [x] Care Coordination and Documentation. Diagnoses Sepsis A41.9 Acute metabolic encephalopathy G93.41 Recurrent UTI N39.0 Osteomyelitis M86.9
[2023-01-29 12:31] LABS: ABG PCO2 41.5 mmHg (35-45); ABG PH Result 7.42 (7.35-7.45); Base Excess ABG 1.9 mmol/L (-2.0-2.0); Blood Gas Allen Test Pos; Blood Gas Operator Identificat WALCI; Blood Gas Sample Site Radial, left; Blood Gas Sample Type Arterial; Carboxyhemoglobin 1.2 %THgb (0.4-20.1); HCO3 ABG 26.7 mmol/L (22-26); HGB O2 Sat 96.5 % (95-100); Ionized Calcium Level - ABG 1.2 mmol/L (1.1-1.4); Methemoglobin 0.5 % (0.4-1.5); Oxygen Device NC; Oxygen Saturation ABG 98.1; Potassium Level - ABG 4.2 mmol/L (3.5-5.0); Total Hemoglobin 13.1 g/dL (14-18)
[2023-01-29] MEDS: LACTATED RINGERS 2585.49 ML IV (12:35)
[2023-01-29] MEDS: meropenem 1,000 MG in sodium chloride 0.9% (plus) 50 ML 100 MG IV ×2 (12:35→21:43)
--- NOTE | 2023-01-29 12:35 | XR_ITS ---
WS: [id number] Left foot, 3 views, 01/29/2023 Clinical Data: chronic heel ulcer Comparison: Left foot, 10/20/2019 Findings: No fractures or dislocations are seen. There is diffuse demineralization of the foot. However the pos terior calcaneus shows sclerosis. No bone destruction or erosion is noted. The joint spaces and soft tissues are normal. XR/XR foot LT 2V 10520 Impression: 1. Diffuse demineralization of the bones of the foot. 2. Sclerosis of the posterior calcaneus which could indicate chronic osteomyeli tis.
[2023-01-29] MEDS: iohexol 350 mg/mL 500 mL Btl (per mL) IV (12:57)
[2023-01-29 13:15] LABS: Estmated Average Glucose 183
[2023-01-29 13:18] LABS: Amphetamines Screen Urine Negative (Negative); Barbiturates Screen Urine Negative (Negative); Benzodiazepines Screen Urine Positive (Negative); Cocaine Screen Urine Negative (Negative); Opiate Screen Urine Negative (Negative); PCP Screen Urine Negative (Negative); THC Screen Urine Negative (Negative)
[2023-01-29 13:27] LABS: Thyroid Stimulating Hormone 1.22 uIU/mL (0.27-4.20)
[2023-01-29 13:28] LABS: Alcohol Level < 10 mg/dL (0-10)
[2023-01-29] MEDS: vancomycin 1,250 MG/250 ML PIGGYBACK 250 MG IV (13:33)
--- NOTE | 2023-01-29 16:00 | PC.NURSE ---
pt admitted to icu from the er via gurney. paraplegia noted. Alonso noted to gravity. wounds identified to the left and right buttock and the left heel. awaiting general surgery to see the wounds for further orders. pt is very disoriented at this time and pulling at iv lines and monitor wires. order obtained for a one on one sitter. will closely monitor.
[2023-01-29] MEDS: heparin 5,000 unit/mL INJ 1 mL 5000 UNIT SUBCUT (17:16)
[2023-01-29] MEDS: sodium chloride 0.9% 1,000 ML 100 ML IV (17:16)
[2023-01-29] MEDS: methocarbamol 500 mg Tablet PO (17:16)
--- NOTE | 2023-01-29 17:44 | PM.CONSULT ---
Providers/Reason For Consult Consulting Physician/Specialty*: Dr. Roberth Guzman, DO/General surgery Reason for Consult*: Sacral and ischial decubitus ulcers Attending Physician: Cullen Pond MD Primary Care Provider: Jonathan Pham History of Present Illness History of Present Illness Israel Mullen is a 62 year old male who presented to the emergency room with mental status changes. HPI and review of systems are limited secondary to this. He was found to have SIRS and a septic source is being investigated. He has chronic ischial and sacral decubitus ulcers. General surgery was consulted for possible debridement. Review of Systems General: Reports: 10 or more systems reviewed and unremarkable except in HPI and below Medications/Allergies Home Medications Medication Instructions Recorded Confirmed Last Taken Type metformin 500 mg tablet 500 mg PO BID 01/29/23 02/15/23 02/12/23 History oxybutynin chloride 5 mg tablet 5 mg PO BID 01/29/23 02/15/23 02/12/23 History thiamine HCl (vitamin B1) 100 mg 100 mg PO QAM 01/29/23 02/15/23 02/12/23 History tablet cranberry extract 500 mg tablet 500 mg PO QAM 02/15/23 02/15/23 Unknown History cyclobenzaprine 10 mg tablet 5 mg PO TID PRN Muscle Spasms #20 02/18/23 Unknown Rx tabs gabapentin 100 mg capsule 100 mg PO TID #90 caps 02/18/23 Unknown Rx Allergies Allergy/AdvReac Type Severity Reaction Status Date / Time Penicillins Allergy Unknown Unknown Verified 02/15/23 07:20 Current Medications Generic Name Dose Route Start Last Admin Trade Name Freq PRN Reason Stop Dose Admin Gabapentin 800 mg 01/30/23 09:00 01/30/23 08:47 Gabapentin 400 Mg Capsule PO 800 mg TID CLARY Administration Heparin Sodium (Porcine) 5,000 unit 01/29/23 16:00 01/30/23 06:08 Heparin 5,000 Unit/Ml Inj 1 Ml SUBCUT 5,000 unit Q12H CLARY Administration Vancomycin/PEG/NADA/Lysine/Water 1,250 mg in 250 mls @ 250 mls/hr 01/29/23 13:00 01/30/23 02:23 Vancocin IV Infused Q12H [facility]ARY Infusion Sodium Chloride 1,000 mls @ 100 mls/hr 01/29/23 15:03 01/30/23 10:07 Sodium Chloride 0.9% IV 50 mls/hr .Q10H CLARY Infusion Meropenem 1,000 mg/ Sodium 50 mls @ 100 mls/hr 01/29/23 20:30 01/30/23 07:15 Chloride IV Infused Q8H [facility]ARY Infusion Protocol Insulin Human Lispro 0 unit 01/29/23 18:00 01/30/23 12:03 Insulin Lispro 100 Unit/1 Ml SUBCUT 2 unit WM&BEDTIME CLARY Administration Protocol Methocarbamol 500 mg 01/30/23 09:00 01/30/23 08:48 Methocarbamol 500 Mg Tablet PO 500 mg QID CLARY Administration Pantoprazole Sodium 40 mg 01/30/23 09:00 01/30/23 08:48 Pantoprazole 40 Mg Sdv IVP 40 mg DAILY CLARY Administration Quetiapine Fumarate 25 mg 01/30/23 09:00 01/30/23 08:47 Quetiapine 25 Mg Tablet PO 25 mg BID CLARY Administration Thiamine Mononitrate 100 mg 01/30/23 09:00 01/30/23 08:47 Thiamine 100 Mg Tablet PO 100 mg DAILY CLARY Administration PFSH Acute PFSH: Medical History Diabetes mellitus Neurogenic bladder Obstructive pyelonephritis Osteomyelitis Paraplegia Right ureteral calculus Urinary incontinence Surgical History H/O colostomy History of back surgery Family History Mother , at age 54 Cancer melanoma Father , at age 68 Cancer brain tumor Denies family history of Anesthesia complication Bleeding disorder Social History Alcohol intake: current Alcohol intake frequency: holidays/special occasions only Substance/Drug Use: never Adopted: No Caregiver/support person: No Lives independently: No Household members: spouse Marital status: Current occupational status: disabled Vitals/I&O/Wt Last Vital Signs Temp 97.2 F L 01/30/23 10:00 Pulse 78 01/30/23 10:00 Resp 20 H 01/30/23 10:00 BP 114/76 01/30/23 10:00 Pulse Ox 99 01/30/23 10:00 O2 Del Method Nasal Cannula 01/30/23 10:00 O2 Flow Rate 2 01/30/23 10:00 01/29/23 01/30/23 01/30/23 22:59 06:59 14:59 Intake Total 3485.49 / 3485.49 1133.333 / 4618.823 1341.667 / 1341.667 Output Total 1375 / 1375 1450 / 2825 Balance 2110.49 / 2110.49 -316.667 / 3098.154 0220.667 / 1341.667 Weight last 48 hrs Weight 193 lb 1.6 oz Weight 164 lb Weight 190 lb Physical Exam Narrative: General : Patient is well developed , no acute distress, oriented only to self Head : Normal cephalic, a-traumatic. Ears : Pinnae and external canal are normal. Hearing is normal. Eyes : PERRLA, Sclera and injection are normal. No conjunctival discharge. Nose : Mucous membranes are without erythema. Throat : buccal mucosa is normal, gums are without significant recession or hypertrophy. Lungs : Equal chest rise bilaterally, no use of accessory muscles, trachea is midline. Cor : Rate and rhythm are normal. Abdomen : Soft, ND, NT, no g/r/m Skin: There are stage IV sacral and ischial decubitus ulcers with no signs of active infection. There is no exudate, induration and/or fluctuance Extremities : No edema, no cyanosis or clubbing, dorsalis pedis pulses are present bilaterally, non-tender to palpation of calves. Upper extremities are normal bilaterally. Back : non-tender to palpation, no CVA tenderness. Urinary Catheter Management: Alonso: Cath Placed During This Visit: yes Reason for Continuing Indwelling Catheter: Accurate Measurement of Urinary Output in Critically Ill Patients Urinary Catheter Date of Insertion: 01/29/23 Urinary Catheter Time of Insertion: 11:17 Data 02/01/23 05:38 02/01/23 05:38 Micro: Microbiology 01/29/23 11:15 Urine Culture - Preliminary Urine,Clean Catch 01/29/23 12:09 Blood Culture - Preliminary Blood NEGATIVE TO DATE 01/29/23 12:06 Blood Culture - Preliminary Blood NEGATIVE TO DATE A&P Assessment and plan (1) Pressure injury of deep tissue of sacral region: Plan Twice daily wet-to-dry dressing changes for ischial and sacral decubitus ulcers He would likely benefit from a wound VAC. We will consider this as an outpatient given that he might not stay very long in the hospital No acute surgical intervention Medical management per hospitalist Coding Level of Care Code 03923 Diagnoses Pressure injury of deep tissue of sacral region L89.156
[2023-01-29 21:08] LABS: Glucose Point of Care 203 mg/dL (70-110)
[2023-01-29] MEDS: insulin lispro 100 unit/1 mL SUBCUT (21:47)
[2023-01-29 23:19] LABS: Glucose Point of Care 181 mg/dL (70-110)
[2023-01-30] VITALS (17 sets, daily range): BP systolic 101–140; BP diastolic 60–90; PULSE 67–91; RESP 11–20; TEMP 3.4–38.1; O2SAT 92–100
[2023-01-30] MEDS: vancomycin 1,250 MG/250 ML PIGGYBACK 250 MG IV (01:18)
[2023-01-30] MEDS: sodium chloride 0.9% 1,000 ML 100 ML IV (01:36)
[2023-01-30 04:16] LABS: Basophils % 0.3 %; Eosinophils # 0.6 10^3/uL (0.0-0.8); Hematocrit 37.6 % (42.0-52.0); Hemoglobin 10.6 g/dL (11.7-16.6); Lymphocytes # 0.8 10^3/uL (0.8-4.8); Lymphocytes % 12.6 %; Mean Corpuscular HGB Conc 28.2 g/dL (30.0-36.0); Mean Corpuscular Hemoglobin 21.8 pg (28.0-34.0); Mean Corpuscular Volume 77.2 fl (80-94); Mean Platelet Volume 10.2 fL (7.4-10.4); Monocytes # 0.5 10^3/uL (0.2-0.9); Neutrophils # 4.43 10^3/uL (1.8-7.7); Neutrophils % 69.6 %; Nucleated Red Blood Cells % 0 %; Platelet Count 185 10^3/cmm (130-400); Red Blood Count 4.87 10^6/uL (4.1-5.3); Red Cell Distribution Width 20.3 % (12.1-15.1); White Blood Count 6.4 10^3/uL (4.0-10.0)
[2023-01-30 04:35] LABS: Alanine Aminotransferase 13 U/L (0-41); Albumin Level 3.1 g/dL (3.5-5.2); Alkaline Phosphatase 70 U/L (40-130); Anion Gap 11.5 (5-19); Aspartate Amino Transferase 18 U/L (0-40); Blood Urea Nitrogen 7 mg/dL (8-23); Calcium 7.8 mg/dL (8.5-10.5); Carbon Dioxide 27 mmol/L (22-29); Chloride 103 mmol/L (98-107); Glomerular Filtration Rate 97.6 mL/min (90-130); Glucose 87 mg/dL (65-115); Magnesium 1.8 mg/dL (1.7-2.3); Osmolality Calculated 281 mOsm/kg (285-295); Potassium 4.5 mmol/L (3.5-5.1); Sodium 137 mmol/L (136-145); Total Bilirubin 0.2 mg/dL (0.15-1.2); Total Protein 6.1 g/dL (6.6-8.7)
[2023-01-30] MEDS: heparin 5,000 unit/mL INJ 1 mL 5000 UNIT SUBCUT ×2 (06:08→16:42)
[2023-01-30] MEDS: meropenem 1,000 MG in sodium chloride 0.9% (plus) 50 ML 50 MG IV ×3 (06:09→20:55)
[2023-01-30 08:26] LABS: Glucose Point of Care 103 mg/dL (70-110)
[2023-01-30] MEDS: quetiapine 25 mg Tablet PO ×2 (08:47→17:07)
[2023-01-30] MEDS: gabapentin 400 mg Capsule 800 MG PO ×3 (08:47→21:00)
[2023-01-30] MEDS: thiamine 100 mg Tablet PO (08:47)
[2023-01-30] MEDS: pantoprazole 40 mg SDV IVP (08:48)
[2023-01-30] MEDS: methocarbamol 500 mg Tablet PO ×4 (08:48→21:00)
--- NOTE | 2023-01-30 11:10 | PC.NURSE ---
Decreased NS to 50ml/hr at 0940 from 100ml/hr per Dr. Pond.
[2023-01-30 11:35] LABS: Glucose Point of Care 142 mg/dL (70-110)
[2023-01-30] MEDS: insulin lispro 100 unit/1 mL SUBCUT ×2 (12:03→22:48)
--- NOTE | 2023-01-30 12:47 | PM.PN ---
Subjective Subjective: - Patient was examined this morning, he is alert to person, to place, to time he follows commands -He does have a he lives at home with his , -He tells me he feels a lot better -No nausea, no vomiting, no abdominal pain -No chest pain Vitals/I&O/Wt Last Vital Signs Temp 97.2 F L 01/30/23 10:00 Pulse 78 01/30/23 10:00 Resp 20 H 01/30/23 10:00 BP 114/76 01/30/23 10:00 Pulse Ox 99 01/30/23 10:00 O2 Del Method Nasal Cannula 01/30/23 10:00 O2 Flow Rate 2 01/30/23 10:00 01/29/23 01/30/23 01/30/23 22:59 06:59 14:59 Intake Total 3485.49 / 3485.49 1133.333 / 4618.823 1341.667 / 1341.667 Output Total 1375 / 1375 1450 / 2825 Balance 2110.49 / 2110.49 -316.667 / 1516.709 2760.667 / 1341.667 Weight last 48 hrs Weight 87.589 kg Weight 74.389 kg Weight 86.183 kg Physical Exam Const: COMMON NORMALS: no acute distress and patient oriented x3 Resp: COMMON NORMALS: normal respiratory effort, No retractions, No use of accessory muscles and clear to auscultation bilaterally AUSCULTATION: clear to auscultation bilaterally Cardio: COMMON NORMALS: regular rate, regular rhythm, S1 normal heart sound present and S2 normal heart sound present RATE: regular rate RHYTHM: regular rhythm HEART SOUNDS: S1 normal heart sound present and S2 normal heart sound present GI: COMMON NORMALS: Normal to inspection, nondistended, normoactive bowel sounds present and non-tender Extremity: COMMON NORMALS: no pedal edema Neuro: COMMON NORMALS: patient oriented x3 Urinary Catheter Management: Alonso: Cath Placed During This Visit: yes Reason for Continuing Indwelling Catheter: Accurate Measurement of Urinary Output in Critically Ill Patients Urinary Catheter Date of Insertion: 01/29/23 Urinary Catheter Time of Insertion: 11:17 Data 01/30/23 03:02 01/30/23 03:02 Micro: Microbiology 01/29/23 11:15 Urine Culture - Preliminary Urine,Clean Catch 01/29/23 12:09 Blood Culture - Preliminary Blood NEGATIVE TO DATE 01/29/23 12:06 Blood Culture - Preliminary Blood NEGATIVE TO DATE A&P Assessment and plan (1) Sepsis: - Sepsis has resolved -Likely secondary to underlying UTI -Also concerns for his sacral deep tissue injury and cellulitis -Continue wound care -General surgery consulted, recommended medical management, no surgical intervention required at this point -Continue meropenem, vancomycin -Await blood cultures (2) Acute metabolic encephalopathy: -Resolved - Likely secondary to underlying sepsis (3) Recurrent UTI: Patient was recently in the emergency department, got diagnosed with a UTI At that time he got Rocephin IV. This could potentially negate his blood cultures. He was seen in the emergency department secondary to concern of hallucinations for 3 weeks or more. Await urine culture No evidence of obstruction on CT Note that patient intermittently self caths at home. (4) Osteomyelitis: Patient with history of osteomyelitis, and evidence of osteomyelitis in his heel and pelvis. He may benefit from infectious disease referral as an outpatient, or potentially consult. For now IV antibiotics are indicated secondary to concerns above (5) Urinary incontinence: (6) Chronic osteomyelitis: (7) Urolithiasis: (8) Neurogenic bladder: (9) Paraplegia: (10) Pressure injury of deep tissue of sacral region: - Wound care (11) Cellulitis: - Antibiotics as above Plan Paraplegia. Note he is on multiple other medications at home such as gabapentin, cyclobenzaprine, Robaxin, mirtazapine, will resume Type 2 diabetes. Initiate sliding scale insulin Multiple other medical problems as outlined in past medical history Full code currently. Heparin for DVT prophylaxis, subcutaneous Plan for today moved out of ICU continue antibiotic treatments, advance diet as tolerated, wound cultures cultures, monitor for fever trend Attestations Medical Necessity Statement*: Patient requires hospitalization for sepsis secondary to UTI, cellulitis Diagnoses Sepsis A41.9 Acute metabolic encephalopathy G93.41 Recurrent UTI N39.0 Osteomyelitis M86.9 Urinary incontinence R32 Chronic osteomyelitis M86.60 Urolithiasis N20.9 Neurogenic bladder N31.9 Paraplegia G82.20 Pressure injury of deep tissue of sacral region L89.156 Cellulitis L03.90
[2023-01-30] MEDS: sodium chloride 0.9% 1,000 ML 50 ML IV (13:38)
[2023-01-30] MEDS: vancomycin 1,250 MG/250 ML PIGGYBACK 200 MG IV (14:59)
[2023-01-30] MEDS: mirtazapine 15 mg Tablet PO (17:07)
[2023-01-30 17:18] LABS: Glucose Point of Care 126 mg/dL (70-110)
[2023-01-30 21:29] LABS: Glucose Point of Care 206 mg/dL (70-110)
[2023-01-31] VITALS (8 sets, daily range): BP systolic 97–157; BP diastolic 53–90; PULSE 77–98; RESP 15–19; TEMP 36.1–37.6; O2SAT 92–95
[2023-01-31] MEDS: vancomycin 1,250 MG/250 ML PIGGYBACK 250 MG IV ×2 (01:05→12:13)
[2023-01-31 02:31] LABS: Vancomycin Trough 15.6 ug/mL (10-15)
[2023-01-31] MEDS: meropenem 1,000 MG in sodium chloride 0.9% (plus) 50 ML 100 MG IV ×3 (04:48→20:05)
[2023-01-31] MEDS: heparin 5,000 unit/mL INJ 1 mL 5000 UNIT SUBCUT ×2 (04:49→16:46)
[2023-01-31 05:06] LABS: Basophils % 0.8 %; Eosinophils # 0.5 10^3/uL (0.0-0.8); Eosinophils % 10.4 %; Hematocrit 38.8 % (42.0-52.0); Hemoglobin 10.9 g/dL (11.7-16.6); Mean Corpuscular HGB Conc 28.1 g/dL (30.0-36.0); Mean Corpuscular Hemoglobin 21.5 pg (28.0-34.0); Mean Corpuscular Volume 76.7 fl (80-94); Mean Platelet Volume 10.6 fL (7.4-10.4); Monocytes # 0.3 10^3/uL (0.2-0.9); Monocytes % 5.6 %; Neutrophils # 3.26 10^3/uL (1.8-7.7); Neutrophils % 62.6 %; Nucleated Red Blood Cells % 0 %; Platelet Count 210 10^3/cmm (130-400); Red Blood Count 5.06 10^6/uL (4.1-5.3); Red Cell Distribution Width 20.5 % (12.1-15.1); White Blood Count 5.2 10^3/uL (4.0-10.0)
[2023-01-31 05:25] LABS: Alanine Aminotransferase 12 U/L (0-41); Albumin Level 2.9 g/dL (3.5-5.2); Alkaline Phosphatase 69 U/L (40-130); Anion Gap 11.2 (5-19); Aspartate Amino Transferase 12 U/L (0-40); Blood Urea Nitrogen 8 mg/dL (8-23); Carbon Dioxide 26 mmol/L (22-29); Chloride 103 mmol/L (98-107); Globulin 3.3 g/dL (1.3-4.6); Glomerular Filtration Rate 97.6 mL/min (90-130); Glucose 166 mg/dL (65-115); Magnesium 1.8 mg/dL (1.7-2.3); Osmolality Calculated 284 mOsm/kg (285-295); Phosphorus 2.2 mg/dL (2.5-4.5); Potassium 4.2 mmol/L (3.5-5.1); Sodium 136 mmol/L (136-145); Total Bilirubin 0.2 mg/dL (0.15-1.2); Total Protein 6.2 g/dL (6.6-8.7)
[2023-01-31 07:32] LABS: Glucose Point of Care 188 mg/dL (70-110)
[2023-01-31] MEDS: insulin lispro 100 unit/1 mL SUBCUT ×2 (07:55→21:20)
[2023-01-31] MEDS: thiamine 100 mg Tablet PO (07:58)
[2023-01-31] MEDS: quetiapine 25 mg Tablet PO ×2 (07:58→17:38)
[2023-01-31] MEDS: gabapentin 400 mg Capsule 800 MG PO ×3 (07:58→20:06)
[2023-01-31] MEDS: methocarbamol 500 mg Tablet PO ×4 (07:58→20:06)
[2023-01-31] MEDS: pantoprazole 40 mg SDV IVP (07:58)
[2023-01-31 11:18] LABS: Glucose Point of Care 131 mg/dL (70-110)
--- NOTE | 2023-01-31 16:39 | P.PN_ITS ---
Subjective Subjective: - Patient was seen this morning, -Afebrile overnight -Denies any chest pain, shortness of breath, no fevers, no chills - Vitals/I&O/Wt Last Vital Signs Temp 97 F L 01/31/23 11:31 Pulse 84 01/31/23 14:46 Resp 18 01/31/23 11:31 BP 118/73 01/31/23 11:31 Pulse Ox 93 01/31/23 14:46 O2 Del Method Room Air 01/31/23 14:46 O2 Flow Rate 2 01/30/23 14:00 01/31/23 01/31/23 01/31/23 06:59 14:59 22:59 Intake Total 420.000 / 3029.000 1020 / 1020 Output Total 750 / 1500 350 / 350 Balance -330.000 / 1529.000 670 / 670 Weight last 48 hrs Weight 79.197 kg Weight 87.589 kg Weight 74.389 kg Physical Exam Const: COMMON NORMALS: no acute distress and patient oriented x3 Resp: COMMON NORMALS: normal respiratory effort, No retractions, No use of accessory muscles and clear to auscultation bilaterally AUSCULTATION: clear t o auscultation bilaterally Cardio: COMMON NORMALS: regular rate, regular rhythm, S1 normal heart sound present and S2 normal heart sound present RATE: regular rate RHYTHM: regular rhythm HEART SOUNDS: S1 normal heart sound present and S2 normal heart sound present GI: COMMON NORMALS: Normal to inspection, nondistended, normoactive bowel sounds present and non-tender Extremity: COMMON NORMALS: no pedal edema Neuro: COMMON NORMALS: patient oriented x3 Psych: COMMON NORMALS: mental status grossly normal Urinary Catheter Management: Alonso: Cath Placed During This Visit: yes Reason for Continuing Indwelling Catheter: Assist Healing of Perineal & Sacral Wounds- Incontinent Patients Urinary Catheter Date of Insertion: 01/29/23 Urinary Catheter Time of Insertion: 11:17 Data 01/31/23 04:47 01/31/23 04:47 Micro: Microbiology 01/29/23 11:15 Urine Culture - Final Urine,Clean Catch 01/29/23 12:09 Blood Culture - Preliminary Blood NEGATIVE TO DATE 01/29/23 12:06 Blood Culture - Preliminary Blood NEGATIVE TO DATE A&P Assessment and plan (1) Sepsis: - Sepsis has resolved -Likely secondary to underlying UTI -Also concerns for his sacral deep tissue injury and cellulitis -Continue wound care -General surgery consulted, recommended medical management, no surgical intervention required at this point -Continue meropenem, vancomycin -Await blood cultures -Await urine cultures (2) Acute metabolic encephalopathy: -Resolved - Likely secondary to underlying sepsis (3) Recurrent UTI: Patient was recently in the emergency department, got diagnosed with a UTI At that time he got Rocephin IV. This could potentially negate his blood cultures. He was seen in the emergency department secondary to concern of hallucinations for 3 weeks or more. Await urine culture No evidence of obstruction on CT Note that patient intermittently self caths at home. (4) Osteomyelitis: Patient with history of osteomyelitis, and evidence of osteomyelitis in his heel and pelvis. He may benefit from infectious disease referral as an outpatient, or potentially consult. For now IV antibiotics are indicated secondary to concerns above (5) Urinary incontinence: (6) Chronic osteomyelitis: (7) Urolithiasis: (8) Neurogenic bladder: (9) Paraplegia: (10) Pressure injury of deep tissue of sacral region: - Wound care (11) Cellulitis: - Antibiotics as above Plan Paraplegia. Note he is on multiple other medications at home such as gabapentin, cyclobenzaprine, Robaxin, mirtazapine, will resume Type 2 diabetes. Initiate sliding scale insulin Multiple other medical problems as outlined in past medical history Full code currently. Heparin for DVT prophylaxis, subcutaneous Plan for today can continue to monitor cultures, continue broad-spectrum antibiotic therapy, plan on discharging in the next 24 hours Attestations Medical Necessity Statement*: Patient requires hospitalization for cellulitis, UTI, Coding Level of Care Code 12128 Moderate MDM includes number and complexity of problems actively addressed during encounter, amount and/or complexity of data reviewed/ordered and described risk of complication, morbidity or mortality of management as d ocumented Diagnoses Sepsis A41.9 Acute metabolic encephalopathy G93.41 Recurrent UTI N39.0 Osteomyelitis M86.9 Urinary incontinence R32 Chronic osteomyelitis M86.60 Urolithiasis N20.9 Neurogenic bladder N31.9 Paraplegia G82.20 Pressure injury of deep tissue of sacral region L89.156 Cellulitis L03.90
[2023-01-31] MEDS: mirtazapine 15 mg Tablet PO (17:38)
[2023-01-31 21:15] LABS: Glucose Point of Care 178 mg/dL (70-110)
[2023-01-31 21:31] LABS: Glucose Point of Care 128 mg/dL (70-110)
[2023-02-01] MEDS: vancomycin 1,250 MG/250 ML PIGGYBACK 250 MG IV ×2 (00:36→12:32)
[2023-02-01] MEDS: cyclobenzaprine 10 mg Tablet PO (02:17)
[2023-02-01] MEDS: meropenem 1,000 MG in sodium chloride 0.9% (plus) 50 ML 100 MG IV ×2 (04:02→11:39)
[2023-02-01] MEDS: heparin 5,000 unit/mL INJ 1 mL 5000 UNIT SUBCUT ×2 (04:04→15:40)
[2023-02-01 04:07] VITALS: BP 115/75; PULSE 73; RESP 17; TEMP 36.5; O2SAT 95
[2023-02-01 06:20] LABS: Basophils % 0.4 %; Eosinophils # 0.6 10^3/uL (0.0-0.8); Hematocrit 40.2 % (42.0-52.0); Hemoglobin 11.3 g/dL (11.7-16.6); Lymphocytes # 1.3 10^3/uL (0.8-4.8); Lymphocytes % 27.3 %; Mean Corpuscular HGB Conc 28.1 g/dL (30.0-36.0); Mean Corpuscular Hemoglobin 21.9 pg (28.0-34.0); Mean Corpuscular Volume 77.9 fl (80-94); Mean Platelet Volume 10.4 fL (7.4-10.4); Monocytes # 0.3 10^3/uL (0.2-0.9); Monocytes % 6.6 %; Neutrophils # 2.58 10^3/uL (1.8-7.7); Neutrophils % 53.3 %; Nucleated Red Blood Cells % 0 %; Platelet Count 226 10^3/cmm (130-400); Red Blood Count 5.16 10^6/uL (4.1-5.3); Red Cell Distribution Width 20.6 % (12.1-15.1); White Blood Count 4.8 10^3/uL (4.0-10.0)
[2023-02-01 06:49] LABS: Albumin Level 2.9 g/dL (3.5-5.2); Alkaline Phosphatase 71 U/L (40-130); Chloride 104 mmol/L (98-107); Potassium 3.9 mmol/L (3.5-5.1); Sodium 136 mmol/L (136-145)
[2023-02-01 06:52] LABS: Glucose Point of Care 205 mg/dL (70-110)
[2023-02-01 07:11] LABS: Alanine Aminotransferase 15 U/L (0-41); Anion Gap 15.9 (5-19); Aspartate Amino Transferase 12 U/L (0-40); Blood Urea Nitrogen 10 mg/dL (8-23); Calcium 7.8 mg/dL (8.5-10.5); Carbon Dioxide 20 mmol/L (22-29); Globulin 3.2 g/dL (1.3-4.6); Glomerular Filtration Rate 97.6 mL/min (90-130); Glucose 171 mg/dL (65-115); Magnesium 1.8 mg/dL (1.7-2.3); Osmolality Calculated 285 mOsm/kg (285-295); Phosphorus 1.5 mg/dL (2.5-4.5); Total Bilirubin 0.2 mg/dL (0.15-1.2); Total Protein 6.1 g/dL (6.6-8.7)
[2023-02-01 08:00] VITALS: BP 128/84; PULSE 80; RESP 17; TEMP 36.5; O2SAT 96
[2023-02-01] MEDS: insulin lispro 100 unit/1 mL SUBCUT ×3 (09:11→17:21)
[2023-02-01] MEDS: quetiapine 25 mg Tablet PO ×2 (09:12→17:22)
[2023-02-01] MEDS: gabapentin 400 mg Capsule 800 MG PO ×2 (09:12→14:35)
[2023-02-01] MEDS: thiamine 100 mg Tablet PO (09:12)
[2023-02-01] MEDS: methocarbamol 500 mg Tablet PO ×3 (09:58→17:22)
[2023-02-01] MEDS: pantoprazole 40 mg SDV IVP (10:08)
[2023-02-01 11:11] VITALS: BP 136/81; PULSE 82; RESP 16; TEMP 36.3; O2SAT 93
[2023-02-01 11:40] LABS: Glucose Point of Care 190 mg/dL (70-110)
--- NOTE | 2023-02-01 13:46 | PM.DCS ---
Discharge Providers Date of Admission: 01/29/23 13:52 Date of Discharge: February 01, 2023 Attending Provider at Admission: Mynor Yoo MD Attending Provider at Discharge: Cullen Pond MD Primary Care Provider: Jonathan Pham Diagnoses at Discharge Discharge Diagnosis (1) Sepsis: Status: Acute (2) Acute metabolic encephalopathy: Status: Acute (3) Recurrent UTI: Status: Acute (4) Osteomyelitis: Status: Acute (5) Urinary incontinence: Status: Acute (6) Chronic osteomyelitis: Status: Acute (7) Urolithiasis: Status: Acute (8) Neurogenic bladder: Status: Acute (9) Paraplegia: Status: Acute (10) Pressure injury of deep tissue of sacral region: Status: Acute (11) Cellulitis: Status: Acute Reason for Visit Reason for Visit: [facility] Hospital Course Hospital Course Israel Mullen is a 62 year old male who presented to the emergency department with mental status changes.? I am asked to potentially admit the patient to the hospital secondary to UTI and acute encephalopathy.? No family is present.? History is obtained by discussing with the emergency department, and reviewing previous notes.? Patient himself is not able to give history.? I tried to call family, but neither cell phone of or .? From the emergency department physician he was combative, with worsening mental status and had fallen out of bed since yesterday.? He was seen in the ER, on and diagnosed with a UTI given an injection of Rocephin, and a prescription for ciprofloxacin.? The initial complaint at that time was hallucinations, for 3 to 4 weeks.? I could not find any history of drug use disorder, or alcoholism.? He is also being seen at wound care clinic.? It appears his last visit there was January 25 and multiple lesions are being treated on his heel, and buttocks.? I cannot find if he has had a fever at home. ? Here in the emergency department his temperature is 99.1, and systolic blood pressure is 90.? Alonso catheter has been placed.? Lactate is not elevated.? He does not have a weight entered yet, which we are addressing now.? I am giving above bolus of LR currently, monitoring his response to it closely, drawing blood cultures, initiating meropenem and vancomycin.? 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 With this history, and the wounds on him and concern of of potential sepsis, a CT scan of his abdomen pelvis with contrast is being ordered.? Also generated a sepsis bolus considering he has significant encephalopathy, source of infection, tachycardia, since being in the emergency department his systolic blood pressures dropped from 140 to 92. Patient was admitted to [facility] for sepsis secondary to UTI, sacral deep tissue injury with surrounding cellulitis, was admitted to the ICU, started on broad-spectrum antibiotic therapy, with also metabolic encephalopathy, overall patient's clinical condition improved, blood cultures remain negative, urine culture showing Enterococcus, sensitive to penicillins. Patient will be discharged on doxycycline for concerns for cellulitis, and Macrobid for Enterococcus UTI. For his sacral DTI's, general surgery was consulted, no surgical debridement needed, follow-up with wound care as outpatient. Patient does have chronic osteomyelitis in his pelvis, and his heel, I would have patient follow-up with infectious disease as outpatient for further evaluation. Physical Exam Const: COMMON NORMALS: no acute distress and patient oriented x3 Resp: COMMON NORMALS: normal respiratory effort, No retractions, No use of accessory muscles and clear to auscultation bilaterally AUSCULTATION: clear to auscultation bilaterally Cardio: COMMON NORMALS: regular rate, regular rhythm, S1 normal heart sound present and S2 normal heart sound present RATE: regular rate RHYTHM: regular rhythm HEART SOUNDS: S1 normal heart sound present and S2 normal heart sound present GI: COMMON NORMALS: Normal to inspection, nondistended, normoactive bowel sounds present and non-tender Extremity: COMMON NORMALS: no calf tenderness and no pedal edema Neuro: COMMON NORMALS: patient oriented x3 Psych: COMMON NORMALS: mental status grossly normal Urinary Catheter Management: Alonso: Cath Placed During This Visit: yes Reason for Continuing Indwelling Catheter: Acute Urinary Retention or Obstruction Urinary Catheter Date of Insertion: 01/29/23 Urinary Catheter Time of Insertion: 11:17 Discharge Data Studies Completed and Pending Completed Studies During Hospitalization Category Date Time Status CT abdomen pelvis w con* [id number] Stat Cat Scan 01/29/23 12:[address] head wo con* [id number] Stat Cat Scan 01/29/23 09:45 Completed XR chest 1V portable [id number] Stat Exams 01/29/23 11:44 Completed XR foot LT 2V [id number] Stat Exams 01/29/23 12:35 Completed Pending at discharge Category Date Time Status Blood Culture Stat Lab 01/29/23 12:09 Results Complete Blood Count w/Auto AM LABS Lab 02/02/23 04:00 Ordered Comprehensive Metabolic Panel AM LABS Lab 02/02/23 04:00 Ordered Magnesium AM LABS Lab 02/02/23 04:00 Ordered Phosphorus AM LABS Lab 02/02/23 04:00 Ordered Radiology Impressions Head CT 01/29/23 09:45 IMPRESSION: No acute intracranial abnormality. Chest X-Ray 01/29/23 11:44 Impression: Negative for acute cardiopulmonary disease. Abdomen/Pelvis CT 01/29/23 12:08 IMPRESSION: 1. No acute findings. 2. Chronic bilateral ischial decubitus ulcers with bone sclerosis and erosion suggesting chronic osteomyelitis. No change since 07/17/2019. 3. Incidental findings above. COMMENTS: For patients with an IVC filter, recommend assessment for a management plan for the patient's IVC filter. If there is no established management plan, recommend referral to an interventional clinician on a nonemergent basis for evaluation. Foot X-Ray 01/29/23 12:35 Impression: 1. Diffuse demineralization of the bones of the foot. 2. Sclerosis of the posterior calcaneus which could indicate chronic osteomyelitis. Laboratory Results WBC 4.8 10^3/uL (4.0-10.0) 02/01/23 05:38 RBC 5.16 10^6/uL (4.1-5.3) 02/01/23 05:38 Hgb 11.3 g/dL (11.7-16.6) L 02/01/23 05:38 Hct 40.2 % (42.0-52.0) L 02/01/23 05:38 MCV 77.9 fl (80-94) L 02/01/23 05:38 MCH 21.9 pg (28.0-34.0) L 02/01/23 05:38 MCHC 28.1 g/dL (30.0-36.0) L 02/01/23 05:38 RDW 20.6 % (12.1-15.1) H 02/01/23 05:38 Plt Count 226 10^3/cmm (130-400) 02/01/23 05:38 MPV 10.4 fL (7.4-10.4) 02/01/23 05:38 Neut % (Auto) 53.3 % 02/01/23 05:38 Lymph % (Auto) 27.3 % 02/01/23 05:38 Rhea % (Auto) 6.6 % 02/01/23 05:38 Eos % (Auto) 12.0 % 02/01/23 05:38 Baso % (Auto) 0.4 % 02/01/23 05:38 Neut # (Auto) 2.58 10^3/uL (1.8-7.7) 02/01/23 05:38 Lymph # (Auto) 1.3 10^3/uL (0.8-4.8) 02/01/23 05:38 Rhea # (Auto) 0.3 10^3/uL (0.2-0.9) 02/01/23 05:38 Eos # (Auto) 0.6 10^3/uL (0.0-0.8) 02/01/23 05:38 Baso # (Auto) 0.0 10^3/uL (0.0-0.1) 02/01/23 05:38 Nucleated RBC % (auto) 0 % 02/01/23 05:38 Nucleated RBCs # 0.0 /100WBC 02/01/23 05:38 Specimen Type Arterial 01/29/23 12:20 Sample Site Radial, left 01/29/23 12:20 ABG pH 7.42 (7.35-7.45) 01/29/23 12:20 ABG pCO2 41.5 mmHg (35-45) 01/29/23 12:20 ABG pO2 131.0 mmHg (80.0-100.0) H 01/29/23 12:20 ABG HCO3 26.7 mmol/L (22-26) H 01/29/23 12:20 ABG O2 Saturation 98.1 01/29/23 12:20 ABG Base Excess 1.9 mmol/L (-2.0-2.0) 01/29/23 12:20 Jose Test Pos 01/29/23 12:20 A-a O2 Gradient Not Reportable 01/29/23 12:20 Hematocrit 40.0 % (42-52) L 01/29/23 12:20 Hgb O2 Saturation 96.5 % (95-100) 01/29/23 12:20 Carboxyhemoglobin 1.2 %THgb (0.4-20.1) 01/29/23 12:20 Methemoglobin 0.5 % (0.4-1.5) 01/29/23 12:20 Total Hemoglobin 13.1 g/dL (14-18) L 01/29/23 12:20 Sodium 140.0 mmol/L (131-143) 01/29/23 12:20 Potassium 4.2 mmol/L (3.5-5.0) 01/29/23 12:20 Glucose 137.0 mg/dL (70-115) H 01/29/23 12:20 Ionized Calcium 1.2 mmol/L (1.1-1.4) 01/29/23 12:20 O2 Delivery Device Nc 01/29/23 12:20 O2 Liters/Min 2.0 % 01/29/23 12:20 Metal Fitter ID [place] 01/29/23 12:20 Sodium 136 mmol/L (136-145) 02/01/23 05:38 Potassium 3.9 mmol/L (3.5-5.1) 02/01/23 05:38 Chloride 104 mmol/L (98-107) 02/01/23 05:38 Carbon Dioxide 20 mmol/L (22-29) L 02/01/23 05:38 Anion Gap 15.9 (5-19) 02/01/23 05:38 BUN 10 mg/dL (8-23) 02/01/23 05:38 Creatinine 0.8 mg/dL (0.7-1.2) 02/01/23 05:38 GFR Calculation 97.6 mL/min (90-130) 02/01/23 05:38 Glucose 171 mg/dL (65-115) H 02/01/23 05:38 POC Glucose 190 mg/dL (70-110) H 02/01/23 11:07 Estimat Average Glucose 183 01/29/23 09:41 Hemoglobin A1c 8.0 % (4.0-6.0) H 01/29/23 09:41 Calculated Osmolality 285 mOsm/kg (285-295) 02/01/23 05:38 Lactic Acid 1.7 mmol/L (0.5-2.2) 01/29/23 09:41 Calcium 7.8 mg/dL (8.5-10.5) L 02/01/23 05:38 Phosphorus 1.5 mg/dL (2.5-4.5) L 02/01/23 05:38 Magnesium 1.8 mg/dL (1.7-2.3) 02/01/23 05:38 Total Bilirubin 0.2 mg/dL (0.15-1.2) 02/01/23 05:38 AST 12 U/L (0-40) 02/01/23 05:38 ALT 15 U/L (0-41) 02/01/23 05:38 Alkaline Phosphatase 71 U/L (40-130) 02/01/23 05:38 Total Protein 6.1 g/dL (6.6-8.7) L 02/01/23 05:38 Albumin 2.9 g/dL (3.5-5.2) L 02/01/23 05:38 Globulin 3.2 g/dL (1.3-4.6) 02/01/23 05:38 TSH 1.22 uIU/mL (0.27-4.20) 01/29/23 09:41 Urine Color Yellow (Yellow) 01/29/23 11:15 Urine Appearance Clear (CLEAR) 01/29/23 11:15 Urine pH 5 (5-7) 01/29/23 11:15 Ur Specific [place] 1.020 (1.005-1.030) 01/29/23 11:15 Urine Protein Neg (Negative) 01/29/23 11:15 Urine Glucose (UA) Norm (Normal) 01/29/23 11:15 Urine Ketones Negative (Negative) 01/29/23 11:15 Urine Blood 3+ (Negative) H 01/29/23 11:15 Urine Nitrate Negative (Negative) 01/29/23 11:15 Urine Bilirubin Neg (Negative) 01/29/23 11:15 Urine Urobilinogen Norm mg/dL (Negative) 01/29/23 11:15 Ur Leukocyte Esterase 2+ (Negative) H 01/29/23 11:15 Urine RBC 5-10 /hpf (0-2) H 01/29/23 11:15 Urine WBC 25-40 /hpf (0-5) H 01/29/23 11:15 Ur Squamous Epith Cells 0-4 /hpf (0-5) H 01/29/23 11:15 Amorphous Sediment 1+ /hpf 01/29/23 11:15 Urine Bacteria Trace /hpf (NONE) 01/29/23 11:15 Urine Mucus 2+ /hpf 01/29/23 11:15 Urine Yeast 1+ /hpf H 01/29/23 11:15 Vancomycin Trough 15.6 ug/mL (10-15) H 01/31/23 01:14 Urine Opiates Screen Negative ng/mL (Negative) 01/29/23 11:15 Ur Barbiturates Screen Negative ng/mL (Negative) 01/29/23 11:15 Ur Phencyclidine Scrn Negative ng/mL (Negative) 01/29/23 11:15 Ur Amphetamines Screen Negative ng/mL (Negative) 01/29/23 11:15 U Benzodiazepines Scrn Positive ng/mL (Negative) H 01/29/23 11:15 Urine Cocaine Screen Negative ng/mL (Negative) 01/29/23 11:15 U Marijuana (THC) Screen Negative ng/mL (Negative) 01/29/23 11:15 Ethyl Alcohol < 10 mg/dL (0-10) 01/29/23 09:41 Vitals Last Vital Signs Temp 97.4 F L 02/01/23 11:11 Pulse 82 02/01/23 11:11 Resp 16 02/01/23 11:11 BP 136/81 02/01/23 11:11 Pulse Ox 93 02/01/23 11:11 O2 Del Method Room Air 02/01/23 11:11 O2 Flow Rate 2 02/01/23 08:00 Discharge Plan Discharge Patient Disposition: Home Condition: Stable Prescriptions: New Macrobid 100 mg capsule 100 mg PO BID 7 Days Qty: 14 0RF Rx Instructions: must administer with a meal/food doxycycline hyclate 100 mg tablet 100 mg PO BID 7 Days Qty: 14 0RF Continued gabapentin 800 mg tablet 800 mg PO TID mirtazapine 15 mg tablet 15 mg PO QPM cyclobenzaprine 10 mg tablet 10 mg PO Q8H PRN (Reason: Pain) methocarbamol 500 mg tablet 500 mg PO QID metformin 500 mg tablet 500 mg PO BID oxybutynin chloride 5 mg tablet 5 mg PO BID quetiapine 25 mg Tablet 25 mg PO BID thiamine HCl (vitamin B1) 100 mg Tablet 100 mg PO DAILY Discontinued ciprofloxacin HCl [Cipro] 500 mg tablet 500 mg PO BID Qty: 20 0RF Discharge Orders: Discharge Order (Routine); Ordered 02/01/23 Ordered By: Cullen Pond Referrals: Jonathan Pham [Primary Care Provider] - 02/04/23 10:00 am Discharge Diet: Cardiac Discharge Activity: Resume usual activity Patient Instructions: Doxycycline (By mouth), Nitrofurantoin Combination (By mouth), Urinary Tract Infection in Men (DC), Osteomyelitis (ED), Alonso Catheter Placement and Care (DC), Opioid Safety Activity Restrictions/Additional Instructions: - Please follow-up with wound care -Has history of chronic osteo, heel, pelvis, I would refer you to infectious disease -Continue Macrobid for UTI -Doxycycline for cellulitis -Follow-up with infectious disease as outpatient Discharge Attestations Time Spent in Discharge Care*: greater than 30 min Quality Metrics Clinical Quality Measures [ No reported AMI, CVA or VTE this stay] Coding Level of Care Code 86121 Total time (in minutes) for Discharge: 45 Diagnoses Sepsis A41.9 Acute metabolic encephalopathy G93.41 Recurrent UTI N39.0 Osteomyelitis M86.9 Urinary incontinence R32 Chronic osteomyelitis M86.60 Urolithiasis N20.9 Neurogenic bladder N31.9 Paraplegia G82.20 Pressure injury of deep tissue of sacral region L89.156 Cellulitis L03.90
[2023-02-01 15:05] VITALS: BP 136/81; PULSE 82; RESP 16; TEMP 36.3
[2023-02-01 16:00] VITALS: BP 125/78; PULSE 75; RESP 17; TEMP 36.4; O2SAT 96
[2023-02-01 17:02] LABS: Glucose Point of Care 225 mg/dL (70-110)
[2023-02-01] MEDS: mirtazapine 15 mg Tablet PO (17:22)
[2023-02-01 17:36] VITALS: BP 125/78; PULSE 75; RESP 17; TEMP 36.4; O2SAT 96
--- NOTE | 2023-02-01 21:14 | PC.NURSE ---
Addendum entered by Nuzhat De Oliveira LPN 02/01/23 21:22: Pt left at 1999 Original Note: DISCHARGE Pt discharged with EMS taking home. Belongings sent. IV's were both discontinued. Alonso left in place. Pt says has chronic Alonso. No c/o on discharge
--- NOTE | 2023-02-02 00:30 | PC.NURSE ---
pt left my EMS
== END 2023-02-01 21:00 | disposition home or self-care (01) | DRG 871 ==
LOC: ER 14:02 → ICU 14:14 → MEDSURG 01-30 14:35
PROVIDERS: Admitting Provider Internal Medicine; Emergency Provider Emergency Medicine; PCP Family Medicine; Visit Provider Family Medicine
DX: A41.9 Sepsis, unspecified organism (principal); G93.41 Metabolic encephalopathy; L89.324 Pressure ulcer of left buttock, stage 4; L89.314 Pressure ulcer of right buttock, stage 4; L89.624 Pressure ulcer of left heel, stage 4; N39.0 Urinary tract infection, site not specified; M86.69 Other chronic osteomyelitis, multiple sites; G82.20 Paraplegia, unspecified; L03.317 Cellulitis of buttock; R65.20 Severe sepsis without septic shock; B95.2 Enterococcus as the cause of diseases classified elsewhere; E11.69 Type 2 diabetes mellitus with other specified complication; Z79.84 Long term (current) use of oral hypoglycemic drugs; N31.9 Neuromuscular dysfunction of bladder, unspecified; R29.6 Repeated falls; Z93.3 Colostomy status
CPT/HCPCS: 36415; 36416; 36600; 51702; 70450; 71045; 73620; 74177; 80051; 80053; 80202; 80306; 80307; 81001; 82330; 82805; 82962; 83036; 83605; 83735; 84100; 84443; 85025; 87040; 87086; 93005; 96365; 96367; 96372; 99285; C9113; J1644; J1815; J2185; J3370; J7030; Q9967

== ENCOUNTER → 2023-02-08 10:35 | Outpatient (BNVA) | payer MEDICAID, SELFPAY | PROVIDERS: PCP Family Medicine; Visit Provider Thoracic Surgery (Cardiothoracic Vascular Surgery) | DX: I96 Gangrene, not elsewhere classified (principal); L89.324 Pressure ulcer of left buttock, stage 4; L89.624 Pressure ulcer of left heel, stage 4; L89.314 Pressure ulcer of right buttock, stage 4 | CPT/HCPCS: 11042; 11045; 97597; A6021 ==

== ENCOUNTER 2023-02-12 11:46 | Emergency (ER) | payer MEDICAID, SELFPAY ==
[2023-02-12 11:54] VITALS: BP 121/76; PULSE 91; RESP 16; TEMP 36.8; O2SAT 96; BMI 29.0
[2023-02-12 12:28] VITALS: BP 140/80; PULSE 86; RESP 16; O2SAT 94
[2023-02-12 12:53] LABS: Basophils # 0.1 10^3/uL (0.0-0.1); Basophils % 0.7 %; Eosinophils # 0.5 10^3/uL (0.0-0.8); Eosinophils % 6.4 %; Hemoglobin 12.9 g/dL (11.7-16.6); Lymphocytes # 1.9 10^3/uL (0.8-4.8); Lymphocytes % 22.8 %; Mean Corpuscular HGB Conc 28.7 g/dL (30.0-36.0); Mean Corpuscular Hemoglobin 21.7 pg (28.0-34.0); Mean Corpuscular Volume 75.8 fl (80-94); Mean Platelet Volume 10.3 fL (7.4-10.4); Monocytes # 0.4 10^3/uL (0.2-0.9); Monocytes % 4.5 %; Neutrophils # 5.49 10^3/uL (1.8-7.7); Neutrophils % 64.8 %; Nucleated Red Blood Cells % 0 %; Platelet Count 281 10^3/cmm (130-400); Red Blood Count 5.94 10^6/uL (4.1-5.3); Red Cell Distribution Width 20.3 % (12.1-15.1); White Blood Count 8.5 10^3/uL (4.0-10.0)
[2023-02-12 13:01] LABS: Add Urine Microscopic? YES; Bilirubin Urine Neg (Negative); Blood Urine Neg (Negative); Glucose Urine UA Norm (Normal); Ketones Urine 1+ (Negative); Leukocyte Esterase Urine 1+ (Negative); Nitrate Urine Negative (Negative); Protein Urine 1+ (Negative); Urine Appearance Clear (CLEAR); Urine Color Yellow (Yellow); Urobilinogen Urine Norm (Negative); pH Urine 5 (5-7)
[2023-02-12 13:03] LABS: Add Urine Culture? Yes; RBC Urine 0-4 /hpf (0-2); Squamous Epithelial Cell Urine 0-4 /hpf (0-5); WBC Urine 15-25 /hpf (0-5)
[2023-02-12 13:12] LABS: Alanine Aminotransferase 10 U/L (0-41); Alkaline Phosphatase 108 U/L (40-130); Anion Gap 16.7 (5-19); Aspartate Amino Transferase 10 U/L (0-40); Blood Urea Nitrogen 13 mg/dL (8-23); Calcium 9.3 mg/dL (8.5-10.5); Carbon Dioxide 24 mmol/L (22-29); Chloride 99 mmol/L (98-107); Globulin 3.8 g/dL (1.3-4.6); Glomerular Filtration Rate 85.2 mL/min (90-130); Glucose 164 mg/dL (65-115); Lactic Sepsis W/Reflex 2.9 mmol/L (0.5-2.2); Magnesium 1.9 mg/dL (1.7-2.3); Osmolality Calculated 284 mOsm/kg (285-295); Potassium 4.7 mmol/L (3.5-5.1); Sodium 135 mmol/L (136-145); Total Bilirubin 0.2 mg/dL (0.15-1.2); Total Protein 7.8 g/dL (6.6-8.7)
[2023-02-12 13:19] LABS: Procalcitonin 0.13 ng/mL (0-0.5)
[2023-02-12 13:28] VITALS: BP 122/82; PULSE 93; RESP 16; TEMP 36.6; O2SAT 93
--- NOTE | 2023-02-12 13:30 | W.ED.PSYCHS ---
HPI - Psych General: Chief Complaint: Psychiatric Symptoms Stated Complaint: MHE Time Seen by Provider: 02/12/23 12:08 History of Present Illness: Patient presents to the ER today complaining of having hallucinations. Hallucinations started about 2 days ago they are worse at night. Patient knows they are hallucinations. Patient was just discharged on the for metabolic encephalopathy. Patient was discharged home on antibiotics with a UTI. Patient's states he done better on the antibiotics and except for a couple days afterwards he finished them within the hallucinations started after that. Patient is a paraplegic and has a Alonso catheter in at this moment. Patient was currently taking doxycycline and Macrobid. Sensitivities from last hospitalization were reviewed. Review of Systems General: Reports: 10 or more systems reviewed and unremarkable except in HPI and below PFSH ED PFSH: Medical History Diabetes mellitus Neurogenic bladder Obstructive pyelonephritis Osteomyelitis Paraplegia Right ureteral calculus Urinary incontinence Surgical History H/O colostomy History of back surgery Family History Mother , at age 54 Cancer melanoma Father , at age 68 Cancer brain tumor Denies family history of Anesthesia complication Bleeding disorder Social History Alcohol intake: current Alcohol intake frequency: holidays/special occasions only Substance/Drug Use: never Adopted: No Caregiver/support person: No Lives independently: No Household members: spouse Marital status: Current occupational status: disabled Physical Exam Const: COMMON NORMALS: no acute distress, average body habitus, patient oriented x3, no limitations, healthy appearing, alert and well nourished HENMT: COMMON NORMALS: normocephalic, atraumatic, hearing grossly normal bilaterally, external ears normal, Normal external nose present and moist oral mucous membranes HEAD & SCALP: normocephalic and atraumatic NOSE: Normal external nose present EXTERNAL EAR: Yes external ears normal Neck/C-Spine: COMMON NORMALS: full ROM, supple, no meningeal signs, no JVD and Thyroid normal THYROID: Thyroid normal Chest: COMMONS NORMALS: normal inspection of the chest and normal palpation of entire chest wall Resp: COMMON NORMALS: normal respiratory effort, No retractions, No use of accessory muscles and clear to auscultation bilaterally AUSCULTATION: clear to auscultation bilaterally Cardio: COMMON NORMALS: no JVD, regular rate, regular rhythm, S1 normal heart sound present, S2 normal heart sound present, No gallops present (Cardio), No clicks present (Cardio) and No murmurs present (Cardio) RATE: regular rate RHYTHM: regular rhythm HEART SOUNDS: S1 normal heart sound present and S2 normal heart sound present GI: COMMON NORMALS: Normal to inspection, nondistended, normoactive bowel sounds present, Soft to palpation, non-tender, No hepatosplenomegaly present and no masses PALPATION: Yes Soft to palpation and Yes No hepatosplenomegaly present Neuro: COMMON NORMALS: patient oriented x3 SENSORIUM/ORIENTATION: Yes alert MENINGEAL SIGNS: Yes no meningeal signs Course Vital Signs: Vital signs: Vital Signs Temperature 98.3 F 02/12/23 11:54 Pulse Rate 91 02/12/23 11:54 Respiratory Rate 16 02/12/23 11:54 Blood Pressure 121/76 02/12/23 11:54 Pulse Oximetry 96 02/12/23 11:54 Oxygen Delivery Me thod Room Air 02/12/23 11:54 MDM - Psych Medical Decision Making Presents to the ER with known hallucinations. Patient just finished up antibiotics for UTI the put him in the hospital a couple weeks ago. Patient called his PCP and has another round of this the same antibiotics to the pharmacy for 1 week. I think the patient may be colonized and/or recurrent infections. Last round was 1 week I will call in 1 more week to make this current round 2 weeks. Patient already has a call into the urologist for suprapubic catheter placement secondary to his paraplegia. Patient will be followed up with PCP in approximately the next 1 to 2 weeks. Differential Diagnosis Unlikely acute psychosis, chronic schizophrenia, suicidal ideation, bipolar disorder, depression, drug-induced psychotic disorder or acute anxiety Medical Records I reviewed the patient's medical records. Lab Data I reviewed the patient's lab results. 02/12/23 12:40 02/12/23 12:40 Laboratory Results WBC 8.5 10^3/uL (4.0-10.0) 02/12/23 12:40 RBC 5.94 10^6/uL (4.1-5.3) H 02/12/23 12:40 Hgb 12.9 g/dL (11.7-16.6) 02/12/23 12:40 Hct 45.0 % (42.0-52.0) 02/12/23 12:40 MCV 75.8 fl (80-94) L 02/12/23 12:40 MCH 21.7 pg (28.0-34.0) L 02/12/23 12:40 MCHC 28.7 g/dL (30.0-36.0) L 02/12/23 12:40 RDW 20.3 % (12.1-15.1) H 02/12/23 12:40 Plt Count 281 10^3/cmm (130-400) 02/12/23 12:40 MPV 10.3 fL (7.4-10.4) 02/12/23 12:40 Neut % (Auto) 64.8 % 02/12/23 12:40 Lymph % (Auto) 22.8 % 02/12/23 12:40 [place] % (Auto) 4.5 % 02/12/23 12:40 Eos % (Auto) 6.4 % 02/12/23 12:40 Baso % (Auto) 0.7 % 02/12/23 12:40 Neut # (Auto) 5.49 10^3/uL (1.8-7.7) 02/12/23 12:40 Lymph # (Auto) 1.9 10^3/uL (0.8-4.8) 02/12/23 12:40 [place] # (Auto) 0.4 10^3/uL (0.2-0.9) 02/12/23 12:40 Eos # (Auto) 0.5 10^3/uL (0.0-0.8) 02/12/23 12:40 Baso # (Auto) 0.1 10^3/uL (0.0-0.1) 02/12/23 12:40 Nucleated RBC % (auto) 0 % 02/12/23 12:40 Nucleated RBCs # 0.0 /100WBC 02/12/23 12:40 Sodium 135 mmol/L (136-145) L 02/12/23 12:40 Potassium 4.7 mmol/L (3.5-5.1) 02/12/23 12:40 Chloride 99 mmol/L (98-107) 02/12/23 12:40 Carbon Dioxide 24 mmol/L (22-29) 02/12/23 12:40 Anion Gap 16.7 (5-19) 02/12/23 12:40 BUN 13 mg/dL (8-23) 02/12/23 12:40 Creatinine 0.9 mg/dL (0.7-1.2) 02/12/23 12:40 GFR Calculation 85.2 mL/min (90-130) L 02/12/23 12:40 Glucose 164 mg/dL (65-115) H 02/12/23 12:40 Calculated Osmolality 284 mOsm/kg (285-295) L 02/12/23 12:40 Lactic Acid 2.9 mmol/L (0.5-2.2) H 02/12/23 12:40 Calcium 9.3 mg/dL (8.5-10.5) 02/12/23 12:40 Magnesium 1.9 mg/dL (1.7-2.3) 02/12/23 12:40 Total Bilirubin 0.2 mg/dL (0.15-1.2) 02/12/23 12:40 AST 10 U/L (0-40) 02/12/23 12:40 ALT 10 U/L (0-41) 02/12/23 12:40 Alkaline Phosphatase 108 U/L (40-130) 02/12/23 12:40 Total Protein 7.8 g/dL (6.6-8.7) 02/12/23 12:40 Albumin 4.0 g/dL (3.5-5.2) 02/12/23 12:40 Globulin 3.8 g/dL (1.3-4.6) 02/12/23 12:40 Procalcitonin 0.13 ng/mL (0-0.5) 02/12/23 12:40 Urine Color Yellow (Yellow) 02/12/23 12:44 Urine Appearance Clear (CLEAR) 02/12/23 12:44 Urine pH 5 (5-7) 02/12/23 12:44 Ur Specific Orma 1.020 (1.005-1.030) 02/12/23 12:44 Urine Protein 1+ (Negative) H 02/12/23 12:44 Urine Glucose (UA) Norm (Normal) 02/12/23 12:44 Urine Ketones 1+ (Negative) H 02/12/23 12:44 Urine Blood Neg (Negative) 02/12/23 12:44 Urine Nitrate Negative (Negative) 02/12/23 12:44 Urine Bilirubin Neg (Negative) 02/12/23 12:44 Urine Urobilinogen Norm mg/dL (Negative) 02/12/23 12:44 Ur Leukocyte Esterase 1+ (Negative) H 02/12/23 12:44 Urine RBC 0-4 /hpf (0-2) H 02/12/23 12:44 Urine WBC 15-25 /hpf (0-5) H 02/12/23 12:44 Ur Squamous Epith Cells 0-4 /hpf (0-5) H 02/12/23 12:44 Amorphous Sediment Not Reportable 02/12/23 12:44 Urine Bacteria None /hpf (NONE) 02/12/23 12:44 Urine Yeast 1+ /hpf H 02/12/23 12:44 Discharge Plan Discharge Patient Disposition: Home Clinical Impression: Recurrent UTI, Paraplegia Condition: Stable Prescriptions: New nitrofurantoin monohyd/m-cryst [Macrobid] 100 mg capsule 100 mg PO BID 7 Days Qty: 14 0RF Rx Instructions: must administer with a meal/food doxycycline hyclate 100 mg capsule 100 mg PO BID 7 Days Qty: 14 0RF No Action gabapentin 800 mg tablet 800 mg PO TID cyclobenzaprine 10 mg tablet 10 mg PO Q8H PRN (Reason: Pain) methocarbamol 500 mg tablet 500 mg PO QID metformin 500 mg tablet 500 mg PO BID oxybutynin chloride 5 mg tablet 5 mg PO BID quetiapine 25 mg Tablet 25 mg PO BID thiamine HCl (vitamin B1) 100 mg Tablet 100 mg PO DAILY mirtazapine 30 mg Tablet 30 mg PO BEDTIME cranberry 400 mg Capsule 400 mg PO DAILY Rx Instructions: administer with a meal Discharge Orders: Discharge ED (Routine); Ordered 02/12/23 Ordered By: Sid Tafoya Referrals: Jonathan Pham [Primary Care Provider] - 1 week Patient Instructions: Catheter-associated Urinary Tract Infection (ED) Activity Restrictions/Additional Instructions: Your urinalysis showed you may have a recurrent urinary tract infection. Please continue with the doxycycline and the Macrobid prescription you have already picked up for 7 days and another 7 days will be prescribed for total of 14 days. You may benefit from a daily prophylactic dose of antibiotics. Please keep your appointment when called for the urologist for discussion about a suprapubic catheter. Coding Level of Care Code ED [employer] Operator for Radha Roque
[2023-02-12 14:38] LABS: Reflex Lactate Order REFLEX LACTIC ORDERD
== END 2023-02-12 14:01 | disposition home or self-care (01) ==
PROVIDERS: Emergency Provider Emergency Medicine; PCP Family Medicine
DX: N39.0 Urinary tract infection, site not specified (principal); E11.9 Type 2 diabetes mellitus without complications; G82.20 Paraplegia, unspecified; Z79.899 Other long term (current) drug therapy; Z79.84 Long term (current) use of oral hypoglycemic drugs
CPT/HCPCS: 80053; 81001; 83605; 83735; 84145; 85025; 87086; 99283

== ENCOUNTER 2023-02-15 05:28 | Inpatient (IN) | payer MEDICAID, SELFPAY ==
[2023-02-15] VITALS (97 sets, daily range): BP systolic 92–147; BP diastolic 40–90; PULSE 75–109; RESP 2–25; TEMP 36.5–36.9; O2SAT 88–100; BMI 31.3
--- NOTE | 2023-02-15 05:40 | XRR_ITS ---
PROCEDURE INFORMATION: Exam: XR Chest Exam date and time: 02/15/2023 5:58 AM Age: 62 years old Clinical indication: Other: Ams/hypotension; Prior surgery; Surgery date: 6+ months; Surgery type: Chest port; Patient HX: Arrival via EMS for hallucinations. Hypotensive on monitor. TECHNIQUE: Imaging protocol: Radiologic exam of the chest. Views: 1 view. COMPARISON: CR XR chest 1V portable [id number] 01/29/2023 11:47 AM FINDINGS: Tubes, catheters and devices: Left Infusaport catheter. Lungs: Unremarkable. No consolidation. Pleural spaces: Unremarkable. No pleural effusion. No pneumothorax. Heart/Mediastinum: Unremarkable. No cardiomegaly. Bones/joints: Postop surgical change thoracic spine. XR/XR chest 1V portable [id number] IMPRESSION: No acute pulmonary disease process
--- NOTE | 2023-02-15 05:40 | CTR_ITS ---
PROCEDURE INFORMATION: Exam: CT Head Without Contrast Exam date and time: 02/15/2023 6:13 AM Age: 62 years old Clinical indication: Altered mental status/memory loss; Patient HX: Arrival via EMS for hallucinations; Additional info: AMS TECHNIQUE: Imaging protocol: Computed tomography of the head without contrast. Radiation optimization: All CT scans at this facility use at least one of these dose optimization techniques: automated exposure control; mA and/or kV adjustment per patient size (includes targeted exams where dose is matched to clinical indication); or iterative reconstruction. REPORTING DATA: Count of CT and Cardiac NM exams in prior 12 months: This patient has received 2 known CTs and 0 known cardiac nuclear medicine studies in the 12 months prior to the current study. COMPARISON: CT head wo con* [id number] 01/29/2023 9:57 AM RADIATION DOSE METRICS: Total DLP (mGy-cm): 988.88 FINDINGS: Brain: Normal. No hemorrhage. Unremarkable white matter. No mass effect. Cerebral ventricles: No ventriculomegaly. Paranasal sinuses: Visualized sinuses are unremarkable. No fluid levels. Mastoid air cells: Visualized mastoid air cells are well aerated. Bones/joints: Unremarkable. No acute fracture. Soft tissues: Unremarkable. CT/CT head wo con* [id number] IMPRESSION: No acute intracranial abnormality.
--- NOTE | 2023-02-15 05:42 | ECG_ITS ---
[facility] Test Date: 2023-02-15 Pat Name: Israel Mullen Department: Room: Gender: Male Caponizer: : 1960 Requested By: Sebastian Calvillo Order Number: [id number] Benjamin MD: Avila Cope M.D. Measurements Intervals [place] Rate: 83 P: 55 MA: 173 QRS: 28 QRSD: 94 T: 43 QT: 376 QTc: 442 Interpretive Statements SINUS RHYTHM Compared to ECG 01/29/2023 09:28:35 Sinus tachycardia no longer present T-wave abnormality no longer present Electronically Signed On 02-15-2023 8:28:22 CDT by Avila Cope M.D. [email or web address]
--- NOTE | 2023-02-15 05:52 | W.ED.AMS ---
Documented by User: Sebastian Rajinder Gato, 02/15/23 06:28 HPI - Altered Mental Status General: Chief Complaint: Altered Mental Status Stated Complaint: AMS Time Seen by Provider: 02/15/23 05:34 Source: patient and EMS History of Present Illness: 62-year-old gentleman with a chronic indwelling catheter. He presents with mental status changes. This is the fourth time in recent weeks he has presented with similar symptoms. He notes hallucinations. He knows these sites and sounds are hallucinations. He also complains of not feeling well. He has a history of sacral decubitus ulcer with infection, and chronic osteomyelitis of his pelvis evidently. He denies fever. Initially his blood pressure was somewhat low, 90s over 50s. MD complaint: altered mental status and confusion Onset (ago): day(s) Timing confirmed by: spouse Severity: moderate Context: other Associated symptoms: Reports auditory hallucinations and visual hallucinations Review of Systems Const: Denies: fever(s) Card: Denies: chest pain Resp: Denies: dyspnea Skin/Breast: Reports: rash Neuro: Denies: headache(s) Psych: Reports: visual hallucinations and auditory hallucinations PFSH ED PFSH: Medical History Diabetes mellitus Neurogenic bladder Obstructive pyelonephritis Osteomyelitis Paraplegia Right ureteral calculus Urinary incontinence Surgical History H/O colostomy History of back surgery Family History Mother , at age 54 Cancer melanoma Father , at age 68 Cancer brain tumor Denies family history of Anesthesia complication Bleeding disorder Social History Alcohol intake: current Alcohol intake frequency: holidays/special occasions only Substance/Drug Use: never Adopted: No Caregiver/support person: No Lives independently: No Household members: spouse Marital status: Current occupational status: disabled Physical Exam Const: GENERAL APPEARANCE: cooperative, ill appearing and frail appearing HENMT: COMMON NORMALS: normocephalic and atraumatic HEAD & SCALP: normocephalic and atraumatic THROAT: posterior oropharynx normal Eye: COMMON NORMALS: Equal, round and reactive pupils present and EOMs intact bilaterally PUPIL: Yes Equal, round and reactive pupils present Chest: CHEST: Yes Symmetrical chest wall rise Resp: COMMON NORMALS: normal respiratory effort, No use of accessory muscles and clear to auscultation bilaterally AUSCULTATION: clear to auscultation bilaterally Cardio: COMMON NORMALS: regular rhythm RATE: tachycardic RHYTHM: regular rhythm GI: COMMON NORMALS: Normal to inspection, nondistended, normoactive bowel sounds present, Soft to palpation and non-tender PALPATION: Yes Soft to palpation OTHER: ostomy bag in place Neuro: LAURA COMA SCALE: document GCS findings [place] coma scale eye opening: Spontaneous Laura coma scale verbal response: Confused [place] coma scale motor response: Obey commands [place] coma scale total score: 14 Psych: COMMON NORMALS: cooperative Course Vital Signs: Vital signs: Vital Signs Temperature 97.7 F 02/15/23 05:29 Pulse Rate 100 02/15/23 08:45 Respiratory Rate 15 02/15/23 08:45 Blood Pressure 108/73 02/15/23 08:45 Pulse Oximetry 91 02/15/23 08:45 Oxygen Delivery Me thod Room Air 02/15/23 08:45 MDM - Altered Mental Status Medical Decision Making Patient is mildly tachycardic. Blood pressure currently 100/60. White blood cell count is 10. Hemoglobin is 13. BMP is normal pending of glucose result. Urinalysis is positive for benzodiazepines. pH is 7.39 PCO2 of 40 PO2 of 77 on room air. Ammonia level is 19. Head CT and chest x-ray reads are pending. X-ray largely negative by my read. Lactic acid is 1.9. Urinalysis shows a 1+ leukocyte Estrace with only 0-4 whites and 0-4 squamous epithelial cells. Not impressive for the mental status changes described. Lab Data 02/15/23 05:40 02/15/23 05:40 Radiology Impressions Chest X-Ray 02/15/23 05:40 IMPRESSION: No acute pulmonary disease process Head CT 02/15/23 05:40 IMPRESSION: No acute intracranial abnormality. Abdomen/Pelvis CT 02/15/23 07:03 IMPRESSION: 1. Study is compromised by significant motion artifact. It would be difficult to exclude free air. 2. Moderate constipation. 3. LEFT lower quadrant colostomy appears similar to prior studies. The amount of constipation is similar to the most recent examination of 01/29/2023. No obstructive pattern otherwise at this time. 4. Chronic bilateral decubitus ulcers with chronic changes of osteomyelitis involving the ischial tuberosities. 5. Cholelithiasis without evidence for acute cholecystitis. 6. IVC filter remains unchanged in position. 7. Alonso catheter present in the urinary bladder. There is air in the urinary bladder. This may be due to recent catheter manipulation or replacement. Alternatively, gas producing organisms/ UTI or fistula with the GI tract should be considered. Laboratory Results WBC 10.1 10^3/uL (4.0-10.0) H 02/15/23 05:40 RBC 5.76 10^6/uL (4.1-5.3) H 02/15/23 05:40 Hgb 12.9 g/dL (11.7-16.6) 02/15/23 05:40 Hct 44.2 % (42.0-52.0) 02/15/23 05:40 MCV 76.7 fl (80-94) L 02/15/23 05:40 MCH 22.4 pg (28.0-34.0) L 02/15/23 05:40 MCHC 29.2 g/dL (30.0-36.0) L 02/15/23 05:40 RDW 20.9 % (12.1-15.1) H 02/15/23 05:40 Plt Count 304 10^3/cmm (130-400) 02/15/23 05:40 MPV 10.4 fL (7.4-10.4) 02/15/23 05:40 Neut % (Auto) 72.0 % 02/15/23 05:40 Lymph % (Auto) 12.0 % 02/15/23 05:40 [place] % (Auto) 3.9 % 02/15/23 05:40 Eos % (Auto) 10.8 % 02/15/23 05:40 Baso % (Auto) 0.5 % 02/15/23 05:40 Neut # (Auto) 7.28 10^3/uL (1.8-7.7) 02/15/23 05:40 Lymph # (Auto) 1.2 10^3/uL (0.8-4.8) 02/15/23 05:40 [place] # (Auto) 0.4 10^3/uL (0.2-0.9) 02/15/23 05:40 Eos # (Auto) 1.1 10^3/uL (0.0-0.8) H 02/15/23 05:40 Baso # (Auto) 0.1 10^3/uL (0.0-0.1) 02/15/23 05:40 Nucleated RBC % (auto) 0 % 02/15/23 05:40 Nucleated RBCs # 0.0 /100WBC 02/15/23 05:40 Specimen Type Arterial 02/15/23 05:50 Sample Site Rr 02/15/23 05:50 ABG pH 7.39 (7.35-7.45) 02/15/23 05:50 ABG pCO2 40.0 mmHg (35-45) 02/15/23 05:50 ABG pO2 77.0 mmHg (80.0-100.0) L 02/15/23 05:50 ABG HCO3 23.9 mmol/L (22-26) 02/15/23 05:50 ABG Base Excess -1.0 mmol/L (-2.0-2.0) 02/15/23 05:50 Jose Test Pos 02/15/23 05:50 Hematocrit 38.7 % (42-52) L 02/15/23 05:50 O2 Delivery Device Room air 02/15/23 05:50 Tower Control Operator ID [email or web address] 02/15/23 05:50 Sodium 136 mmol/L (136-145) 02/15/23 05:40 Potassium 4.7 mmol/L (3.5-5.1) 02/15/23 05:40 Chloride 99 mmol/L (98-107) 02/15/23 05:40 Carbon Dioxide 25 mmol/L (22-29) 02/15/23 05:40 Anion Gap 16.7 (5-19) 02/15/23 05:40 BUN 10 mg/dL (8-23) 02/15/23 05:40 Creatinine 0.9 mg/dL (0.7-1.2) 02/15/23 05:40 GFR Calculation 85.2 mL/min (90-130) L 02/15/23 05:40 Glucose 170 mg/dL (65-115) H 02/15/23 05:40 Calculated Osmolality 285 mOsm/kg (285-295) 02/15/23 05:40 Lactic Acid 1.9 mmol/L (0.5-2.2) 02/15/23 05:40 Calcium 9.1 mg/dL (8.5-10.5) 02/15/23 05:40 Total Bilirubin 0.3 mg/dL (0.15-1.2) 02/15/23 05:40 AST 10 U/L (0-40) 02/15/23 05:40 ALT 10 U/L (0-41) 02/15/23 05:40 Alkaline Phosphatase 111 U/L (40-130) 02/15/23 05:40 Ammonia 19 umol/L (16-60) 02/15/23 05:48 C-Reactive Protein 56.7 mg/L (0.0-4.9) H 02/15/23 05:40 Total Protein 7.9 g/dL (6.6-8.7) 02/15/23 05:40 Albumin 4.1 g/dL (3.5-5.2) 02/15/23 05:40 Globulin 3.8 g/dL (1.3-4.6) 02/15/23 05:40 Urine Color Colorless (Yellow) 02/15/23 05:48 Urine Appearance Clear (CLEAR) 02/15/23 05:48 Urine pH 5 (5-7) 02/15/23 05:48 Ur Specific [place] 1.000 (1.005-1.030) L 02/15/23 05:48 Urine Protein Neg (Negative) 02/15/23 05:48 Urine Glucose (UA) Norm (Normal) 02/15/23 05:48 Urine Ketones Negative (Negative) 02/15/23 05:48 Urine Blood Neg (Negative) 02/15/23 05:48 Urine Nitrate Negative (Negative) 02/15/23 05:48 Urine Bilirubin Neg (Negative) 02/15/23 05:48 Urine Urobilinogen Norm mg/dL (Negative) 02/15/23 05:48 Ur Leukocyte Esterase 1+ (Negative) H 02/15/23 05:48 Urine RBC None /hpf (0-2) 02/15/23 05:48 Urine WBC 0-4 /hpf (0-5) H 02/15/23 05:48 Ur Squamous Epith Cells 0-4 /hpf (0-5) H 02/15/23 05:48 Amorphous Sediment Not Reportable 02/15/23 05:48 Urine Bacteria Trace /hpf (NONE) 02/15/23 05:48 Urine Yeast Trace /hpf 02/15/23 05:48 Urine Opiates Screen Negative ng/mL (Negative) 02/15/23 05:48 Ur Barbiturates Screen Negative ng/mL (Negative) 02/15/23 05:48 Ur Phencyclidine Scrn Negative ng/mL (Negative) 02/15/23 05:48 Ur Amphetamines Screen Negative ng/mL (Negative) 02/15/23 05:48 U Benzodiazepines Scrn Positive ng/mL (Negative) H 02/15/23 05:48 Urine Cocaine Screen Negative ng/mL (Negative) 02/15/23 05:48 U Marijuana (THC) Screen Negative ng/mL (Negative) 02/15/23 05:48 Ethyl Alcohol < 10 mg/dL (0-10) 02/15/23 05:40 Discharge Plan Discharge Patient Disposition: Admitted As Inpatient Admit Provider: Mynor Yoo Clinical Impression: Encephalopathy acute, Paraplegia, Pressure injury of deep tissue of sacral region, Neurogenic bladder, Diabetes mellitus, Chronic osteomyelitis Condition: Stable Sign Out Sign Out Data: Patient Sign Out occurred on 02/15/23 at 06:37. Patient's care was discussed, and care was transferred from to Mack Benitez DO. Coding Level of Care Code ED Environmental Services Assistant for Chg Fwd Documented by User: Mack Benitez DO 02/15/23 09:08 HPI - Altered Mental Status General: Chief Complaint: Altered Mental Status Stated Complaint: AMS Time Seen by Provider: 02/15/23 05:34 PFSH ED PFSH: Medical History Diabetes mellitus Neurogenic bladder Obstructive pyelonephritis Osteomyelitis Paraplegia Right ureteral calculus Urinary incontinence Surgical History H/O colostomy History of back surgery Family History Mother , at age 54 Cancer melanoma Father , at age 68 Cancer brain tumor Denies family history of Anesthesia complication Bleeding disorder Social History Alcohol intake: current Alcohol intake frequency: holidays/special occasions only Substance/Drug Use: never Adopted: No Caregiver/support person: No Lives independently: No Household members: spouse Marital status: Current occupational status: disabled Physical Exam Neuro: LAURA COMA SCALE: document GCS findings [place] coma scale total score: 14 Course Vital Signs: Vital signs: Vital Signs Temperature 97.7 F 02/15/23 05:29 Pulse Rate 100 02/15/23 08:45 Respiratory Rate 15 02/15/23 08:45 Blood Pressure 108/73 02/15/23 08:45 Pulse Oximetry 91 02/15/23 08:45 Oxygen Delivery Me thod Room Air 02/15/23 08:45 MDM - Altered Mental Status Medical Decision Making Patient is mildly tachycardic. Blood pressure currently 100/60. White blood cell count is 10. Hemoglobin is 13. BMP is normal pending of glucose result. Urinalysis is positive for benzodiazepines. pH is 7.39 PCO2 of 40 PO2 of 77 on room air. Ammonia level is 19. Head CT and chest x-ray reads are pending. X-ray largely negative by my read. Lactic acid is 1.9. Urinalysis shows a 1+ leukocyte Estrace with only 0-4 whites and 0-4 squamous epithelial cells. Not impressive for the mental status changes described. Lactate is normal white count slightly elevated. Patient is still having hallucinations he is given Ativan to complete CT. He has a very foul-smelling sacral ulcer and his known chronic osteomyelitis there. Urine chest x-ray unremarkable CT of the abdomen does not show anything acute. Discussed with hospitalist will admit started on meropenem and vancomycin admit to the ICU due to his altered mental status. Does not meet criteria for sepsis at this point but he is altered to suspect infection as a cause. Medical Records I reviewed the patient's medical records. Lab Data I reviewed the patient's lab results. 02/15/23 05:40 02/15/23 05:40 Radiology Impressions Chest X-Ray 02/15/23 05:40 IMPRESSION: No acute pulmonary disease process Head CT 02/15/23 05:40 IMPRESSION: No acute intracranial abnormality. Abdomen/Pelvis CT 02/15/23 07:03 IMPRESSION: 1. Study is compromised by significant motion artifact. It would be difficult to exclude free air. 2. Moderate constipation. 3. LEFT lower quadrant colostomy appears similar to prior studies. The amount of constipation is similar to the most recent examination of 01/29/2023. No obstructive pattern otherwise at this time. 4. Chronic bilateral decubitus ulcers with chronic changes of osteomyelitis involving the ischial tuberosities. 5. Cholelithiasis without evidence for acute cholecystitis. 6. IVC filter remains unchanged in position. 7. Alonso catheter present in the urinary bladder. There is air in the urinary bladder. This may be due to recent catheter manipulation or replacement. Alternatively, gas producing organisms/ UTI or fistula with the GI tract should be considered. Laboratory Results WBC 10.1 10^3/uL (4.0-10.0) H 02/15/23 05:40 RBC 5.76 10^6/uL (4.1-5.3) H 02/15/23 05:40 Hgb 12.9 g/dL (11.7-16.6) 02/15/23 05:40 Hct 44.2 % (42.0-52.0) 02/15/23 05:40 MCV 76.7 fl (80-94) L 02/15/23 05:40 MCH 22.4 pg (28.0-34.0) L 02/15/23 05:40 MCHC 29.2 g/dL (30.0-36.0) L 02/15/23 05:40 RDW 20.9 % (12.1-15.1) H 02/15/23 05:40 Plt Count 304 10^3/cmm (130-400) 02/15/23 05:40 MPV 10.4 fL (7.4-10.4) 02/15/23 05:40 Neut % (Auto) 72.0 % 02/15/23 05:40 Lymph % (Auto) 12.0 % 02/15/23 05:40 [place] % (Auto) 3.9 % 02/15/23 05:40 Eos % (Auto) 10.8 % 02/15/23 05:40 Baso % (Auto) 0.5 % 02/15/23 05:40 Neut # (Auto) 7.28 10^3/uL (1.8-7.7) 02/15/23 05:40 Lymph # (Auto) 1.2 10^3/uL (0.8-4.8) 02/15/23 05:40 [place] # (Auto) 0.4 10^3/uL (0.2-0.9) 02/15/23 05:40 Eos # (Auto) 1.1 10^3/uL (0.0-0.8) H 02/15/23 05:40 Baso # (Auto) 0.1 10^3/uL (0.0-0.1) 02/15/23 05:40 Nucleated RBC % (auto) 0 % 02/15/23 05:40 Nucleated RBCs # 0.0 /100WBC 02/15/23 05:40 Specimen Type Arterial 02/15/23 05:50 Sample Site Rr 02/15/23 05:50 ABG pH 7.39 (7.35-7.45) 02/15/23 05:50 ABG pCO2 40.0 mmHg (35-45) 02/15/23 05:50 ABG pO2 77.0 mmHg (80.0-100.0) L 02/15/23 05:50 ABG HCO3 23.9 mmol/L (22-26) 02/15/23 05:50 ABG Base Excess -1.0 mmol/L (-2.0-2.0) 02/15/23 05:50 Jose Test Pos 02/15/23 05:50 Hematocrit 38.7 % (42-52) L 02/15/23 05:50 O2 Delivery Device Room air 02/15/23 05:50 Tower Control Operator ID yorna 02/15/23 05:50 Sodium 136 mmol/L (136-145) 02/15/23 05:40 Potassium 4.7 mmol/L (3.5-5.1) 02/15/23 05:40 Chloride 99 mmol/L (98-107) 02/15/23 05:40 Carbon Dioxide 25 mmol/L (22-29) 02/15/23 05:40 Anion Gap 16.7 (5-19) 02/15/23 05:40 BUN 10 mg/dL (8-23) 02/15/23 05:40 Creatinine 0.9 mg/dL (0.7-1.2) 02/15/23 05:40 GFR Calculation 85.2 mL/min (90-130) L 02/15/23 05:40 Glucose 170 mg/dL (65-115) H 02/15/23 05:40 Calculated Osmolality 285 mOsm/kg (285-295) 02/15/23 05:40 Lactic Acid 1.9 mmol/L (0.5-2.2) 02/15/23 05:40 Calcium 9.1 mg/dL (8.5-10.5) 02/15/23 05:40 Total Bilirubin 0.3 mg/dL (0.15-1.2) 02/15/23 05:40 AST 10 U/L (0-40) 02/15/23 05:40 ALT 10 U/L (0-41) 02/15/23 05:40 Alkaline Phosphatase 111 U/L (40-130) 02/15/23 05:40 Ammonia 19 umol/L (16-60) 02/15/23 05:48 C-Reactive Protein 56.7 mg/L (0.0-4.9) H 02/15/23 05:40 Total Protein 7.9 g/dL (6.6-8.7) 02/15/23 05:40 Albumin 4.1 g/dL (3.5-5.2) 02/15/23 05:40 Globulin 3.8 g/dL (1.3-4.6) 02/15/23 05:40 Urine Color Colorless (Yellow) 02/15/23 05:48 Urine Appearance Clear (CLEAR) 02/15/23 05:48 Urine pH 5 (5-7) 02/15/23 05:48 Ur Specific [place] 1.000 (1.005-1.030) L 02/15/23 05:48 Urine Protein Neg (Negative) 02/15/23 05:48 Urine Glucose (UA) Norm (Normal) 02/15/23 05:48 Urine Ketones Negative (Negative) 02/15/23 05:48 Urine Blood Neg (Negative) 02/15/23 05:48 Urine Nitrate Negative (Negative) 02/15/23 05:48 Urine Bilirubin Neg (Negative) 02/15/23 05:48 Urine Urobilinogen Norm mg/dL (Negative) 02/15/23 05:48 Ur Leukocyte Esterase 1+ (Negative) H 02/15/23 05:48 Urine RBC None /hpf (0-2) 02/15/23 05:48 Urine WBC 0-4 /hpf (0-5) H 02/15/23 05:48 Ur Squamous Epith Cells 0-4 /hpf (0-5) H 02/15/23 05:48 Amorphous Sediment Not Reportable 02/15/23 05:48 Urine Bacteria Trace /hpf (NONE) 02/15/23 05:48 Urine Yeast Trace /hpf 02/15/23 05:48 Urine Opiates Screen Negative ng/mL (Negative) 02/15/23 05:48 Ur Barbiturates Screen Negative ng/mL (Negative) 02/15/23 05:48 Ur Phencyclidine Scrn Negative ng/mL (Negative) 02/15/23 05:48 Ur Amphetamines Screen Negative ng/mL (Negative) 02/15/23 05:48 U Benzodiazepines Scrn Positive ng/mL (Negative) H 02/15/23 05:48 Urine Cocaine Screen Negative ng/mL (Negative) 02/15/23 05:48 U Marijuana (THC) Screen Negative ng/mL (Negative) 02/15/23 05:48 Ethyl Alcohol < 10 mg/dL (0-10) 02/15/23 05:40 Discharge Plan Discharge Patient Disposition: Admitted As Inpatient Admit Provider: Mynor Yoo Clinical Impression: Encephalopathy acute, Paraplegia, Pressure injury of deep tissue of sacral region, Neurogenic bladder, Diabetes mellitus, Chronic osteomyelitis Condition: Stable Sign Out Sign Out Data: Patient Sign Out occurred on 02/15/23 at 06:37. Patient's care was discussed, and care was transferred from to Mack Benitez DO. Coding Level of Care Code ED Environmental Services Assistant for Radha Roque
[2023-02-15 05:55] LABS: Basophils # 0.1 10^3/uL (0.0-0.1); Basophils % 0.5 %; Eosinophils # 1.1 10^3/uL (0.0-0.8); Eosinophils % 10.8 %; Hematocrit 44.2 % (42.0-52.0); Hemoglobin 12.9 g/dL (11.7-16.6); Lymphocytes # 1.2 10^3/uL (0.8-4.8); Mean Corpuscular HGB Conc 29.2 g/dL (30.0-36.0); Mean Corpuscular Hemoglobin 22.4 pg (28.0-34.0); Mean Corpuscular Volume 76.7 fl (80-94); Mean Platelet Volume 10.4 fL (7.4-10.4); Monocytes # 0.4 10^3/uL (0.2-0.9); Monocytes % 3.9 %; Neutrophils # 7.28 10^3/uL (1.8-7.7); Nucleated Red Blood Cells % 0 %; Platelet Count 304 10^3/cmm (130-400); Red Blood Count 5.76 10^6/uL (4.1-5.3); Red Cell Distribution Width 20.9 % (12.1-15.1); White Blood Count 10.1 10^3/uL (4.0-10.0)
[2023-02-15] MEDS: sodium chloride 0.9% 1,000 ML 999 ML IV ×2 (06:00→06:06)
[2023-02-15 06:02] LABS: ABG PH Result 7.39 (7.35-7.45); Arterial Blood Gas Hematocrit 38.7 % (42-52); Blood Gas Allen Test Pos; Blood Gas Sample Type Arterial; HCO3 ABG 23.9 mmol/L (22-26)
[2023-02-15 06:05] LABS: Blood Gas Sample Site RR; Oxygen Device ROOM AIR
[2023-02-15 06:08] LABS: Lactic Sepsis W/Reflex 1.9 mmol/L (0.5-2.2)
[2023-02-15 06:10] LABS: Ammonia 19 umol/L (16-60)
[2023-02-15 06:11] LABS: Alanine Aminotransferase 10 U/L (0-41); Albumin Level 4.1 g/dL (3.5-5.2); Alkaline Phosphatase 111 U/L (40-130); Anion Gap 16.7 (5-19); Aspartate Amino Transferase 10 U/L (0-40); Blood Urea Nitrogen 10 mg/dL (8-23); C Reactive Protein 56.7 mg/L (0.0-4.9); Calcium 9.1 mg/dL (8.5-10.5); Carbon Dioxide 25 mmol/L (22-29); Chloride 99 mmol/L (98-107); Globulin 3.8 g/dL (1.3-4.6); Glomerular Filtration Rate 85.2 mL/min (90-130); Glucose 170 mg/dL (65-115); Osmolality Calculated 285 mOsm/kg (285-295); Potassium 4.7 mmol/L (3.5-5.1); Sodium 136 mmol/L (136-145); Total Bilirubin 0.3 mg/dL (0.15-1.2); Total Protein 7.9 g/dL (6.6-8.7)
[2023-02-15 06:14] LABS: Bilirubin Urine Neg (Negative); Blood Urine Neg (Negative); Glucose Urine UA Norm (Normal); Ketones Urine Negative (Negative); Leukocyte Esterase Urine 1+ (Negative); Nitrate Urine Negative (Negative); Protein Urine Neg (Negative); Urine Appearance Clear (CLEAR); Urine Color Colorless (Yellow); Urobilinogen Urine Norm (Negative); pH Urine 5 (5-7)
[2023-02-15 06:15] LABS: Add Urine Microscopic? YES; WBC Urine 0-4 /hpf (0-5)
[2023-02-15 06:16] LABS: Amphetamines Screen Urine Negative (Negative); Bacteria Urine TRACE /hpf; Barbiturates Screen Urine Negative (Negative); Benzodiazepines Screen Urine Positive (Negative); Cocaine Screen Urine Negative (Negative); Opiate Screen Urine Negative (Negative); PCP Screen Urine Negative (Negative); Squamous Epithelial Cell Urine 0-4 /hpf (0-5); THC Screen Urine Negative (Negative)
[2023-02-15 06:17] LABS: Add Urine Culture? Yes
[2023-02-15 06:31] LABS: Alcohol Level < 10 mg/dL (0-10)
--- NOTE | 2023-02-15 07:02 | PC.NURSE ---
THIS NURSE AND ED PHYSICIAN ASSESSED PT LEFT HEAL WOUND AND SACRAL WOUNDS. PHYSICIAN GAVE VERBAL INSTRUCTION TO LEAVE WOUNDS OPEN TO AIR FOR ASSESSMENT BY HOSPITALIST.
--- NOTE | 2023-02-15 07:03 | CT_ITS ---
WS: [id number] CT ABDOMEN AND PELVIS WITH CONTRAST HISTORY: Abdominal pain. TECHNIQUE: Imaging performed of the abdomen and pelvis with IV contrast. Single phase imaging of the abdomen. Coronal and sagittal reformats are submitted. All CT scans at [facility] use at [address] one of these dose optimization techniques: automated exposure control; mA and/or kV adjustment per patient size (includes targeted exams where dose is matched to clinical indication); or iterative re construction. IV CONTRAST: Omnipaque 350; 100 mL IV. Oral contrast: No DLP: 5.43 mGy.cm COMPARISON: 01/29/2023. Quality of this examination is significantly compromised by motion artifact. Lower thorax: Lung bases are limited with significant breathing motion artifact. Heart appears normal size. No pericardial effusion. Small hiatal hernia. Liver/biliary system: Limited but no gross abnormality. Gallbladder: Normal size gallbladder with several stones. Bile duct is not dilated. No adjacent infla mmation. Pancreas: Normal size pancreas and pancreatic duct. No adjacent inflammation. Spleen: Normal size spleen. No mass or infarct. Adrenal glands: Normal. Right kidney: Small extrarenal pelvis. No obstruction. Left kidney: Limited by motion. Aorta: Mild atherosclerosis with no aneurysm. IVC filter is identified at the level just below the renal veins. Lymphadenopathy: None. Free fluid: None. GI tract: Minimally distended stomach. No small bowel obstruction. Moderate constipation. LEFT lower quadrant colostomy site. Griffin's pouch. The rectal wall thickening which has been previously descri bed is unchanged with no progression. No appendicitis. Abdominal wall: LEFT lower quadrant colostomy site. Pelvis: Alonso catheter nondistended urinary bladder. There is air in the urinary bladder which may be due to recent placement of catheter. Bones: Bilateral ischial sclerosis from healed osteomyelitis. Patient has known chronic bilateral dec ubitus ulcers. No progression of the ulceration tracts. The soft tissue thickening along the ulcerati on tracks is similar to prior studies. CT/CT abdomen pelvis w con* [id number] IMPRESSION: 1. Study is compromised by significant motion artifact. It would be difficult to exclude free air. 2. Moderate constipation. 3. LEFT lower quadrant colostomy appears similar to prior studies. The amount of constipation is similar to the most recent examination of 01/29/2023. No obst ructive pattern otherwise at this time. 4. Chronic bilateral decubitus ulcers with chronic changes of osteomyelitis in volving the ischial tuberosities. 5. Cholelithiasis without evidence for acute cholecystitis. 6. IVC filter remains unchanged in position. 7. Alonso catheter present in the urinary bladder. There is air in the urinary bladder. This may be due to recent catheter manipulation or replacement. Altern atively, gas producing organisms/ UTI or fistula with the GI tract should be co nsidered.
[2023-02-15] MEDS: meropenem 1,000 MG in sodium chloride 0.9% (plus) 50 ML 100 MG IV ×3 (07:13→22:45)
--- NOTE | 2023-02-15 07:26 | PC.PHAR ---
pts fredo [phone] verified pts medications-pts states the pt is not taking quetiapine 25mg bid ext shows filled 01/27/23 30d/s-pts states the pt is taking mirtazapine 60mg hs ext shows last filled 01/24/23 30d/s 30mg hs-pts states the pt is almost out of mirtazapine-notes are made in the pharmacy comments
--- NOTE | 2023-02-15 07:47 | PC.NURSE ---
1200ML URINARY OUTPUT
[2023-02-15] MEDS: LORazepam 2 mg/mL INJ 1 mL IVP (08:17)
[2023-02-15] MEDS: vancomycin 1,000 MG in sodium chloride 0.9% 250 ML 250 MG IV (08:18)
--- NOTE | 2023-02-15 08:35 | P.HP_ITS ---
Providers/Chief Complaint Admitting Physician: Mynor Yoo MD Primary Care Provider: Jonathan Pham Chief Complaint: AMS History of Present Illness Israel Mullen is a 62 year old male with history of paraplegia, chronic decubiti, chronic osteo, indwelling urinary catheter presenting to the emergency department with confusion. He has been in the emergency department several times with similar complaints. He was admitted, on January 29 and discharged on February 01 for concerns of cellulitis and infection. Ultimately, an enterococcal UTI was noted at that time. Unfortunately, family member is not available for further history currently. From my understanding his will be in later after work to get further history. Initial blood pressure on arrival was low 90s. He is required some sedation with Ativan to allow testing secondary to hallucinations and agitation. I do not know if there is been any history of fever. He was recently seen at wound care, and decubitus ulcers were debrided. He was also given a referral to urology and there is consideration of sup rapubic catheter placement. The emergency department he got a dose of meropenem, a dose of vancomycin, and some lorazepam. I have ordered some Zyprexa for him. Review of Systems General: Reports: ROS unobtainable due to medical condition Medications/Allergies Home Medications Medication Instructions Recorded Confirmed Last Taken Type gabapentin 800 mg tablet 800 mg PO TID 07/20/19 02/15/23 02/12/23 History metformin 500 mg tablet 500 mg PO BID 01/29/23 02/15/23 02/12/23 History methocarbamol 500 mg tablet 500 mg PO QID 01/29/23 02/15/23 02/12/23 History oxybutynin chloride 5 mg tablet 5 mg PO BID 01/29/23 02/15/23 02/12/23 History thiamine HCl (vitamin B1) 100 mg 100 mg PO QAM 01/29/23 02/15/23 02/12/23 History tablet doxycycline hyclate 100 mg capsule 100 mg PO BID 7 days #14 caps 02/12/23 02/15/23 Unknown Rx mirtazapine 30 mg tablet 60 mg PO BEDTIME 02/12/23 02/15/23 02/11/23 History nitrofurantoin 100 mg PO BID 7 days #14 caps 02/12/23 02/15/23 Unknown Rx monohydrate/macrocrystals 100 mg capsule (Macrobid) cranberry extract 500 mg tablet 500 mg PO QAM 02/15/23 02/15/23 Unknown History Allergies Allergy/AdvReac Type Severity Reaction Status Date / Time Penicillins Allergy Unknown Unknown Verified 02/15/23 07:20 PFSH Acute PFSH: Medical History (Updated 02/15/23 @ 09:05 by Mynor Yoo MD) Diabetes mellitus Neurogenic bladder Obstructive pyelonephritis Osteomyelitis Paraplegia Right ureteral calculus Urinary incontinence Surgical History H/O colostomy History of back surgery Family History Mother , at age 54 Cancer melanoma Father , at age 68 Cancer brain tumor Denies family history of Anesthesia complication Bleeding disorder Social History Alcohol intake: current Alcohol intake frequency: holidays/special occasions only Substance/Drug Use: never Adopted: No Caregiver/support person: No Lives independently: No Household members: spouse Marital status: Current occupational status: disabled Vitals/I&O/Wt Last Vital Signs Temp 97.7 F 02/15/23 05:29 Pulse 99 02/15/23 07:14 Resp 20 H 02/15/23 07:14 BP 115/90 02/15/23 07:14 Pulse Ox 93 02/15/23 07:14 O2 Del Method Room Air 02/15/23 07:14 02/14/23 02/15/23 02/15/23 22:59 06:59 14:59 Intake Total 1000 / 1000 1050 / 1050 Balance 1000 / 1000 1050 / 1050 Weight last 48 hrs Weight 90.718 kg Physical Exam Narrative: General examination is a white male, obviously hallucinating, picking at things in the air and simulating eating. He seems significantly shaky. HEENT: Atraumatic and normocephalic. Pupils equally round. Oropharynx somewhat dry Neck is supple no lymphadenopathy or thyromegaly Cardiovascular borderline tachycardic, no murmur Lungs clear no wheezing or crackles Abdomen demonstrates ostomy, which is pink. Stool is noted in the vault exam demonstrates Alonso, some erosion of penis secondary to Alonso Skin demonstrates multiple decub's. 1 each buttocks. 1 on the right is more tunneled than the left and has some drainage. These are unstageable secondary to tunneling with suspected stage IV. Sacral decub is also noted. This is approximately stage III. Heel ulcer stage II on left heel also noted Neuro: Paraplegia noted. Obviously hallucinating. Will make eye contact briefly. Extremities. No cyanosis or clubbing. Atrophy is noted. Trace bilateral edema Data 02/15/23 05:40 02/15/23 05:40 Other Labs: ABG demonstrates pH 7.39, PCO2 40, PO2 of 77 on room air LFTs are normal CRP 56.7 Albumin and calcium are normal Urinalysis with 0-4 whites Urine drug screen positive benzodiazepines, alcohol level less than 10 TSH normal No acute changes Chest x-ray which I visualize demonstrates no infiltrate, rods are noted in the back CT abdomen and pelvis demonstrates constipation, no obvious obstruction, chronic decubitus ulcers with chronic changes consistent with osteomyelitis, IVC filter, cholelithiasis Blood and urine cultures were obtained EKG demonstrates sinus rhythm, normal axis, no acute changes Micro: Microbiology 02/15/23 05:40 Blood Culture - Preliminary Blood SPECIMEN COLLECTED 02/15/23 05:40 Blood Culture - Preliminary Blood SPECIMEN COLLECTED A&P Assessment and plan (1) Encephalopathy acute: Patient presents with acute metabolic encephalopathy. It is unclear whether this is recurred. There are multiple different underlying factors. This is most likely secondary to infection. He has obvious sites of his sacral decub's and osteomyelitis. Blood cultures have been obtained and antibiotics started. Other etiology could be medicine effect, for potentially other ingestion. For now we will watch in ICU secondary to the need for Ativan, potential need for one-on-one, potential need for further sedation. For safety and to prevent pulling of all IVs soft restraints have been ordered currently which will need to be reevaluated as per protocol. Hold mirtazapine currently Hold Neurontin, restarting at a lower dose as soon as possible when he is able to take p.o. Holding Robaxin, restarting at a lower dose as soon as he is able to take p.o. (2) Pressure injury of deep tissue of sacral region: Has significant bilateral decubitus, associated with osteomyelitis. No evidence of abscess formation. These are difficult to evaluate secondary to tunneling. No obvious need for debridement currently on CT scan, nor can I see a need for significant debridement on physical exam today. He does have more drainage from his decubitus right ischial area. Secondary to concern of infection, osteomyelitis causing presentation and potentially even bacteremia meropenem and vancomycin were initiated. Await urine and blood cultures Infectious disease consultation was ordered as an outpatient last day. I think it will be important to discharge him on oral antibiotics at minimum to bridge time from discharge until follow-up appointment Wet-to-dry dressings currently (3) Diabetes mellitus: Sliding scale insulin Consistent carb diet when able (4) Osteomyelitis: See notations under pressure injury Plan Paraplegia Other medical problems as outlined in past medical history Full code Lovenox for DVT prophylaxis Attestations Medical Necessity Statement*: Will need greater than 2 midnight stay for evaluation and treatment of acute metabolic encephalopathy Diagnoses Encephalopathy acute G93.40 Pressure injury of deep tissue of sacral region L89.156 Diabetes mellitus E11.9 Osteomyelitis M86.9 Time Spent (min) 51
[2023-02-15] MEDS: iohexol 350 mg/mL 500 mL Btl (per mL) IV (08:36)
--- NOTE | 2023-02-15 09:04 | PC.NURSE ---
PT RESTING IN BED. SNORING RESPIRATIONS. 2L O2 BY NC APPLIED. ADMITTING PHYSICIAN NOTIFIED. ADMITTING PHYSICIAN GAVE VERBAL ORDER TO HOLD ZYPREXA. ZYPREXA TRANSPORTED TO ICU ALONG WITH PT OTHER BELONGINGS.
--- NOTE | 2023-02-15 09:35 | PC.NURSE ---
COLOSTOMY BAG CHANGED
[2023-02-15] MEDS: sodium chloride 0.9% 1,000 ML 75 ML IV (10:13)
[2023-02-15] MEDS: enoxaparin 40 mg/0.4 mL Syringe SUBCUT (10:19)
[2023-02-15 10:51] LABS: Vitamin B12 361 pg/mL (232-1245)
[2023-02-15 11:03] LABS: Erythrocyte Sedimentation Rate 34 mm/hr (0-10)
[2023-02-15 12:31] LABS: Glucose Point of Care 147 mg/dL (70-110)
[2023-02-15 17:30] LABS: Glucose Point of Care 120 mg/dL (70-110)
[2023-02-15] MEDS: vancomycin 1,500 MG/300 ML PIGGYBACK 200 MG IV (17:51)
[2023-02-15 20:36] LABS: Glucose Point of Care 122 mg/dL (70-110)
[2023-02-16] VITALS (153 sets, daily range): BP systolic 94–161; BP diastolic 60–100; PULSE 64–95; RESP 10–33; TEMP 36.4–37.1; O2SAT 93–100
[2023-02-16] MEDS: sodium chloride 0.9% 1,000 ML 75 ML IV ×2 (01:34→17:25)
--- NOTE | 2023-02-16 01:36 | PC.PHAR ---
Vancomycin Trough scheduled for 02/17 @ 0500. Please hold 0600 dose until drawn Will continue to follow. Thank you, Natalie Barnes [facility]
[2023-02-16 05:00] LABS: Basophils # 0.1 10^3/uL (0.0-0.1); Basophils % 0.8 %; Eosinophils # 1.2 10^3/uL (0.0-0.8); Eosinophils % 17.6 %; Hematocrit 41.2 % (42.0-52.0); Hemoglobin 11.6 g/dL (11.7-16.6); Lymphocytes # 0.8 10^3/uL (0.8-4.8); Lymphocytes % 11.8 %; Mean Corpuscular HGB Conc 28.2 g/dL (30.0-36.0); Mean Corpuscular Hemoglobin 22.1 pg (28.0-34.0); Mean Corpuscular Volume 78.6 fl (80-94); Mean Platelet Volume 10.3 fL (7.4-10.4); Monocytes # 0.4 10^3/uL (0.2-0.9); Monocytes % 5.5 %; Neutrophils # 4.15 10^3/uL (1.8-7.7); Neutrophils % 63.4 %; Nucleated Red Blood Cells % 0 %; Platelet Count 228 10^3/cmm (130-400); Red Blood Count 5.24 10^6/uL (4.1-5.3); Red Cell Distribution Width 20.7 % (12.1-15.1); White Blood Count 6.5 10^3/uL (4.0-10.0)
[2023-02-16] MEDS: vancomycin 1,500 MG/300 ML PIGGYBACK 200 MG IV ×2 (05:26→17:25)
[2023-02-16 05:28] LABS: Alanine Aminotransferase 9 U/L (0-41); Albumin Level 3.5 g/dL (3.5-5.2); Alkaline Phosphatase 98 U/L (40-130); Anion Gap 14.7 (5-19); Aspartate Amino Transferase 10 U/L (0-40); Blood Urea Nitrogen 8 mg/dL (8-23); Calcium 8.3 mg/dL (8.5-10.5); Carbon Dioxide 23 mmol/L (22-29); Chloride 108 mmol/L (98-107); Creatinine Clr Calc Pharmacy 101.5266; Globulin 2.9 g/dL (1.3-4.6); Glomerular Filtration Rate 97.6 mL/min (90-130); Glucose 98 mg/dL (65-115); Magnesium 1.8 mg/dL (1.7-2.3); Osmolality Calculated 290 mOsm/kg (285-295); Potassium 4.7 mmol/L (3.5-5.1); Sodium 141 mmol/L (136-145); Total Bilirubin 0.3 mg/dL (0.15-1.2); Total Protein 6.4 g/dL (6.6-8.7)
[2023-02-16] MEDS: thiamine 100 mg Tablet PO (05:29)
[2023-02-16 06:50] LABS: Glucose Point of Care 87 mg/dL (70-110)
--- NOTE | 2023-02-16 07:54 | P.PN_ITS ---
Subjective Subjective: Israel is awake and alert, and oriented. Denies any complaints. Cannot remember why he came in. Denies any substance use, no new medication changes. Medications: Reviewed: Yes Vitals/I&O/Wt Last Vital Signs Temp 97.6 F 02/16/23 05:56 Pulse 78 02/16/23 07:47 Resp 19 H 02/16/23 05:56 BP 122/66 02/16/23 05:56 Pulse Ox 99 02/16/23 07:47 O2 Del Method Nasal Cannula 02/16/23 07:47 O2 Flow Rate 2 02/16/23 07:47 02/15/23 02/16/23 02/16/23 22:59 06:59 14:59 Intake Total 1298.75 / 2598.75 101.25 / 2700.00 Output Total 1000 / 1000 900 / 1900 Balance 298.75 / 1598.75 -798.75 / 800.00 Weight last 48 hrs Weight 90.718 kg Physical Exam Narrative: General examination is a white male, oriented Neck is supple no lymphadenopathy or thyromegaly Cardiovascular borderline tachycardic, no murmur Lungs clear no wheezing or crackles Abdomen demonstrates ostomy, which is pink. Stool is noted in the vault exam Alonso Skin demonstrates multiple decub's. 1 each buttocks. 1 on the right is more tunneled than the left and has some drainage. These are unstageable secondary to tunneling with suspected stage IV. Sacral decub is also noted. This is approximately stage III. Heel ulcer stage II on left heel also noted Neuro: Paraplegia noted, no focal deficits that are new Data 02/16/23 04:30 02/16/23 04:30 Micro: Microbiology 02/15/23 05:40 Blood Culture - Preliminary Blood NEGATIVE TO DATE 02/15/23 05:40 Blood Culture - Preliminary Blood NEGATIVE TO DATE A&P Assessment and plan (1) Encephalopathy acute: Patient presents with acute metabolic encephalopathy. It is unclear whether this is recurred. There are multiple different underlying factors. This is most likely secondary to infection. He has obvious sites of his sacral decub's and osteomyelitis. Blood cultures have been obtained and antibiotics started. Other etiology could be medicine effect, for potentially other ingestion. This is clearing Continue to hold mirtazapine currently Restart Neurontin at 100 mg 3 times daily Restart Robaxin, as needed Continue close follow-up May transfer out of ICU (2) Pressure injury of deep tissue of sacral region: Has significant bilateral decubitus, associated with osteomyelitis. No evidence of abscess formation. These are difficult to evaluate secondary to tunneling. No obvious need for debridement currently on CT scan, nor can I see a need for significant debridement on physical exam today. He does have more drainage from his decub itus right ischial area. Secondary to concern of infection, osteomyelitis causing presentation and p otentially even bacteremia meropenem and vancomycin were initiated. Continue to await blood and urine cultures Infectious disease consultation was ordered as an outpatient last day. I think it will be important to discharge him on oral antibiotics at minimum to bridge time from discharge until follow-up appointment Wet-to-dry dressings currently May need nursing facility care for wound care (3) Diabetes mellitus: Sliding scale insulin Consistent carb diet when able (4) Osteomyelitis: See notations under pressure injury Plan Paraplegia Other medical problems as outlined in past medical history Full code Lovenox for DVT prophylaxis Attestations Medical Necessity Statement*: Needs continued hospitalization for close monitoring of acute encephalopathy and treatment of likely cellulitis, with inability to rule out bacteremia at this course and his hospital stay. Other Coding Information 23 Diagnoses Encephalopathy acute G93.40 Pressure injury of deep tissue of sacral region L89.156 Diabetes mellitus E11.9 Osteomyelitis M86.9
[2023-02-16] MEDS: meropenem 1,000 MG in sodium chloride 0.9% (plus) 50 ML 100 MG IV ×3 (08:23→23:07)
[2023-02-16] MEDS: gabapentin 100 mg Capsule PO ×3 (08:23→20:20)
[2023-02-16] MEDS: enoxaparin 40 mg/0.4 mL Syringe SUBCUT (08:24)
[2023-02-16 20:48] LABS: Glucose Point of Care 124 mg/dL (70-110)
[2023-02-17] VITALS (7 sets, daily range): BP systolic 145–166; BP diastolic 78–88; PULSE 68–82; RESP 15–16; TEMP 36.4–37.2; O2SAT 96–97
[2023-02-17 04:52] LABS: Basophils % 0.6 %; Eosinophils # 1.1 10^3/uL (0.0-0.8); Eosinophils % 17.4 %; Hematocrit 38.3 % (42.0-52.0); Hemoglobin 11.1 g/dL (11.7-16.6); Lymphocytes % 16.3 %; Mean Platelet Volume 9.9 fL (7.4-10.4); Monocytes # 0.4 10^3/uL (0.2-0.9); Monocytes % 6.6 %; Neutrophils # 3.66 10^3/uL (1.8-7.7); Neutrophils % 58.6 %; Nucleated Red Blood Cells % 0 %; Platelet Count 250 10^3/cmm (130-400); Red Blood Count 5.04 10^6/uL (4.1-5.3); Red Cell Distribution Width 20.5 % (12.1-15.1); White Blood Count 6.3 10^3/uL (4.0-10.0)
[2023-02-17] MEDS: vancomycin 1,500 MG/300 ML PIGGYBACK 200 MG IV (05:02)
[2023-02-17] MEDS: thiamine 100 mg Tablet PO (05:03)
[2023-02-17 05:19] LABS: Vancomycin Trough 22.8 ug/mL (10-15)
[2023-02-17 05:30] LABS: Anion Gap 15.6 (5-19); Blood Urea Nitrogen 12 mg/dL (8-23); Calcium 8.4 mg/dL (8.5-10.5); Carbon Dioxide 21 mmol/L (22-29); Chloride 106 mmol/L (98-107); Creatinine Clr Calc Pharmacy 135.3689; Glomerular Filtration Rate 136.1 mL/min (90-130); Glucose 133 mg/dL (65-115); Osmolality Calculated 288 mOsm/kg (285-295); Potassium 4.6 mmol/L (3.5-5.1); Sodium 138 mmol/L (136-145)
[2023-02-17 06:39] LABS: Glucose Point of Care 150 mg/dL (70-110)
[2023-02-17] MEDS: insulin lispro 100 unit/1 mL SUBCUT ×4 (08:17→21:19)
[2023-02-17] MEDS: meropenem 1,000 MG in sodium chloride 0.9% (plus) 50 ML 100 MG IV ×3 (08:18→22:24)
[2023-02-17] MEDS: gabapentin 100 mg Capsule PO ×3 (08:18→21:19)
[2023-02-17] MEDS: enoxaparin 40 mg/0.4 mL Syringe SUBCUT (09:32)
--- NOTE | 2023-02-17 10:23 | P.PN_ITS ---
Subjective Subjective: Israel reports he is doing okay. Denies any confusion. States he is agreeable to go to a nursing facility for wound care. Medications: Reviewed: Yes Vitals/I&O/Wt Last Vital Signs Temp 97.5 F L 02/17/23 07:42 Pulse 69 02/17/23 07:42 Resp 16 02/17/23 07:42 BP 148/88 02/17/23 07:42 Pulse Ox 97 02/17/23 07:42 O2 Del Method Room Air 02/17/23 04:00 O2 Flow Rate 2 02/16/23 07:47 02/16/23 02/17/23 02/17/23 22:59 06:59 14:59 Intake Total 700 / 1700 1350 / 3050 530 / 530 Output Total 2500 / 2500 750 / 3250 Balance -1800 / -800 600 / -200 530 / 530 Weight last 48 hrs Weight 74.389 kg Physical Exam Narrative: General examination is a white male, alert and oriented x3 Cardiovascular borderline tachycardic, no murmur Lungs clear no wheezing or crackles Abdomen bowel sounds, ostomy noted exam Alonso Skin demonstrates multiple decub's. 1 each buttocks. 1 on the right is more tunneled than the left and has some drainage. These are unstageable secondary to tunneling with suspected stage IV. Sacral decub is also noted. This is approximately stage III. Heel ulcer stage II on left heel also noted Data 02/17/23 04:38 02/17/23 04:38 Micro: Microbiology 02/15/23 05:48 Urine Culture - Preliminary Urine,Clean Catch 02/15/23 05:40 Blood Culture - Preliminary Blood NEGATIVE TO DATE 02/15/23 05:40 Blood Culture - Preliminary Blood NEGATIVE TO DATE A&P Assessment and plan (1) Encephalopathy acute: Patient presents with acute metabolic encephalopathy. It is unclear whether this is recurred. There are multiple different underlying factors. This is most likely secondary to infection. He has obvious sites of his sacral decub's and osteomyelitis. Blood cultures have been obtained and antibiotics started. Other etiology could be medicine effect, for potentially other ingestion. This is resolved Continue to hold mirtazapine currently Continue Neurontin at 100 mg 3 times daily Restarted muscle relaxant but Flexeril 5 mg 3 times daily as needed (2) Pressure injury of deep tissue of sacral region: Has significant bilateral decubitus, associated with osteomyelitis. No evidence of abscess formation. These are difficult to evaluate secondary to tunneling. No obvious need for debridement currently on CT scan, nor can I see a need for significant debridement on physical exam today. He does have more drainage from his decubitus right ischial area. Secondary to concern of infection, osteomyelitis causing presentation and potent ially even bacteremia meropenem and vancomycin were initiated. Cultures are negative to date. CT abdomen pelvis demonstrated no abscess formation. Continue to await blood and urine cultures Infectious disease consultation was ordered as an outpatient last day. I think it will be important to discharge him on oral antibiotics at minimum to bridge time from discharge until follow-up appointment. Wet-to-dry dressings currently Needs nursing facility care for wound care (3) Diabetes mellitus: Sliding scale insulin Consistent carb diet when able (4) Osteomyelitis: See notations under pressure injury CBC, BMP in the morning Plan Paraplegia Other medical problems as outlined in past medical history Full code Lovenox for DVT prophylaxis Discontinue IV fluids Attestations Medical Necessity Statement*: Needs continued hospitalization for IV antibiotics, wound care pending placement while awaiting culture results Diagnoses Encephalopathy acute G93.40 Pressure injury of deep tissue of sacral region L89.156 Diabetes mellitus E11.9 Osteomyelitis M86.9 Time Spent (min) 24
[2023-02-17 11:21] LABS: Glucose Point of Care 190 mg/dL (70-110)
[2023-02-17 17:27] LABS: Glucose Point of Care 143 mg/dL (70-110)
[2023-02-17 20:58] LABS: Glucose Point of Care 169 mg/dL (70-110)
[2023-02-17] MEDS: vancomycin 1,250 MG/250 ML PIGGYBACK 200 MG IV (23:04)
[2023-02-18 00:28] VITALS: BP 120/72; PULSE 68; RESP 17; TEMP 36.8; O2SAT 97
[2023-02-18 05:00] VITALS: BP 132/80; PULSE 78; RESP 16; TEMP 37.2; O2SAT 97
[2023-02-18 05:15] LABS: Basophils % 0.8 %; Eosinophils # 0.8 10^3/uL (0.0-0.8); Hematocrit 40.5 % (42.0-52.0); Hemoglobin 11.8 g/dL (11.7-16.6); Lymphocytes # 1.1 10^3/uL (0.8-4.8); Lymphocytes % 20.6 %; Mean Corpuscular HGB Conc 29.1 g/dL (30.0-36.0); Mean Corpuscular Hemoglobin 22.4 pg (28.0-34.0); Mean Corpuscular Volume 76.9 fl (80-94); Mean Platelet Volume 10.2 fL (7.4-10.4); Monocytes # 0.4 10^3/uL (0.2-0.9); Monocytes % 7.8 %; Neutrophils # 2.83 10^3/uL (1.8-7.7); Nucleated Red Blood Cells % 0 %; Platelet Count 261 10^3/cmm (130-400); Red Blood Count 5.27 10^6/uL (4.1-5.3); White Blood Count 5.2 10^3/uL (4.0-10.0)
[2023-02-18 05:34] LABS: Anion Gap 15.2 (5-19); Blood Urea Nitrogen 9 mg/dL (8-23); Calcium 8.5 mg/dL (8.5-10.5); Carbon Dioxide 23 mmol/L (22-29); Chloride 105 mmol/L (98-107); Glomerular Filtration Rate 113.9 mL/min (90-130); Glucose 142 mg/dL (65-115); Osmolality Calculated 289 mOsm/kg (285-295); Potassium 4.2 mmol/L (3.5-5.1); Sodium 139 mmol/L (136-145)
[2023-02-18 06:00] VITALS: PULSE 60
[2023-02-18] MEDS: thiamine 100 mg Tablet PO (06:20)
[2023-02-18] MEDS: meropenem 1,000 MG in sodium chloride 0.9% (plus) 50 ML 100 MG IV (06:22)
[2023-02-18 06:23] LABS: Glucose Point of Care 125 mg/dL (70-110)
[2023-02-18 08:00] VITALS: BP 164/93; PULSE 78; RESP 18; TEMP 36.7; O2SAT 97
[2023-02-18] MEDS: enoxaparin 40 mg/0.4 mL Syringe SUBCUT (08:39)
[2023-02-18] MEDS: gabapentin 100 mg Capsule PO (08:39)
--- NOTE | 2023-02-18 10:10 | P.DS_ITS ---
Discharge Providers Date of Admission: 02/15/23 08:43 Date of Discharge: February 18, 2023 Attending Provider at Admission: Mynor Yoo MD Attending Provider at Discharge: Mynor Yoo MD Primary Care Provider: Jonathan Alcantarno Diagnoses at Discharge Discharge Diagnosis (1) Encephalopathy acute: Status: Acute (2) Pressure injury of deep tissue of sacral region: Status: Acute (3) Diabetes mellitus: Status: Acute (4) Osteomyelitis: Status: Acute Reason for Visit Reason for Visit: AMS Hospital Course Hospital Course [place] is a 62-year-old white male who presented to the hospital with hallucinations. There was concern these may be secondary to medication effect, particularly his muscle relaxant, versus infection from his chronic osteomyelitis and decubiti. He was placed on meropenem, and vancomycin. Many of his medications were held. Resolution of hallucinations occurred rapidly. All cultures were negative of blood and urine. Reduction in dosage of Neurontin and muscle relaxant occurred and he tolerated this well. On February 18, he was stable to be discharged home. He refused skilled care. He was discharged into the care of his with current medications. He is to continue doxycycline, and follow-up with his primary care provider, wound care, and infectious disease. He is to return for any concerns. He was given an opportunity ask questions, and agreed with the plan. I also discussed this with his via phone. Physical Exam 2 Narrative: General exam no distress Neck is supple Cardiovascular regular rate and rhythm without murmur Lungs clear Abdomen is soft Extremities no cyanosis clubbing or edema, atrophy noted, heel decubitus unchanged Discharge Data Studies Completed and Pending Completed Studies During Hospitalization Category Date Time Status CT abdomen pelvis w con* [id number] Stat Cat Scan 02/15/23 07:[address] head wo con* [id number] Stat Cat Scan 02/15/23 05:40 Completed XR chest 1V portable [id number] Stat Exams 02/15/23 05:40 Completed Pending at discharge Category Date Time Status Blood Culture Stat Lab 02/15/23 05:40 Results Radiology Impressions Chest X-Ray 02/15/23 05:40 IMPRESSION: No acute pulmonary disease process Head CT 02/15/23 05:40 IMPRESSION: No acute intracranial abnormality. Abdomen/Pelvis CT 02/15/23 07:03 IMPRESSION: 1. Study is compromised by significant motion artifact. It would be difficult to exclude free air. 2. Moderate constipation. 3. LEFT lower quadrant colostomy appears similar to prior studies. The amount of constipation is similar to the most recent examination of 01/29/2023. No obstructive pattern otherwise at this time. 4. Chronic bilateral decubitus ulcers with chronic changes of osteomyelitis involving the ischial tuberosities. 5. Cholelithiasis without evidence for acute cholecystitis. 6. IVC filter remains unchanged in position. 7. Alonso catheter present in the urinary bladder. There is air in the urinary bladder. This may be due to recent catheter manipulation or replacement. Alternatively, gas producing organisms/ UTI or fistula with the GI tract should be considered. Laboratory Results WBC 5.2 10^3/uL (4.0-10.0) 02/18/23 04:52 RBC 5.27 10^6/uL (4.1-5.3) 02/18/23 04:52 Hgb 11.8 g/dL (11.7-16.6) 02/18/23 04:52 Hct 40.5 % (42.0-52.0) L 02/18/23 04:52 MCV 76.9 fl (80-94) L 02/18/23 04:52 MCH 22.4 pg (28.0-34.0) L 02/18/23 04:52 MCHC 29.1 g/dL (30.0-36.0) L 02/18/23 04:52 RDW 21.0 % (12.1-15.1) H 02/18/23 04:52 Plt Count 261 10^3/cmm (130-400) 02/18/23 04:52 MPV 10.2 fL (7.4-10.4) 02/18/23 04:52 Neut % (Auto) 54.0 % 02/18/23 04:52 Lymph % (Auto) 20.6 % 02/18/23 04:52 [place] % (Auto) 7.8 % 02/18/23 04:52 Eos % (Auto) 16.0 % 02/18/23 04:52 Baso % (Auto) 0.8 % 02/18/23 04:52 Neut # (Auto) 2.83 10^3/uL (1.8-7.7) 02/18/23 04:52 Lymph # (Auto) 1.1 10^3/uL (0.8-4.8) 02/18/23 04:52 [place] # (Auto) 0.4 10^3/uL (0.2-0.9) 02/18/23 04:52 Eos # (Auto) 0.8 10^3/uL (0.0-0.8) 02/18/23 04:52 Baso # (Auto) 0.0 10^3/uL (0.0-0.1) 02/18/23 04:52 Nucleated RBC % (auto) 0 % 02/18/23 04:52 Nucleated RBCs # 0.0 /100WBC 02/18/23 04:52 ESR 34 mm/hr (0-10) H 02/15/23 05:40 Specimen Type Arterial 02/15/23 05:50 Sample Site Rr 02/15/23 05:50 ABG pH 7.39 (7.35-7.45) 02/15/23 05:50 ABG pCO2 40.0 mmHg (35-45) 02/15/23 05:50 ABG pO2 77.0 mmHg (80.0-100.0) L 02/15/23 05:50 ABG HCO3 23.9 mmol/L (22-26) 02/15/23 05:50 ABG Base Excess -1.0 mmol/L (-2.0-2.0) 02/15/23 05:50 Jose Test Pos 02/15/23 05:50 Hematocrit 38.7 % (42-52) L 02/15/23 05:50 O2 Delivery Device Room air 02/15/23 05:50 Corporate Planner ID [email or web address] 02/15/23 05:50 Sodium 139 mmol/L (136-145) 02/18/23 04:52 Potassium 4.2 mmol/L (3.5-5.1) 02/18/23 04:52 Chloride 105 mmol/L (98-107) 02/18/23 04:52 Carbon Dioxide 23 mmol/L (22-29) 02/18/23 04:52 Anion Gap 15.2 (5-19) 02/18/23 04:52 BUN 9 mg/dL (8-23) 02/18/23 04:52 Creatinine 0.7 mg/dL (0.7-1.2) 02/18/23 04:52 GFR Calculation 113.9 mL/min (90-130) 02/18/23 04:52 Glucose 142 mg/dL (65-115) H 02/18/23 04:52 POC Glucose 125 mg/dL (70-110) H 02/18/23 06:18 Calculated Osmolality 289 mOsm/kg (285-295) 02/18/23 04:52 Lactic Acid 1.9 mmol/L (0.5-2.2) 02/15/23 05:40 Calcium 8.5 mg/dL (8.5-10.5) 02/18/23 04:52 Magnesium 1.8 mg/dL (1.7-2.3) 02/16/23 04:30 Total Bilirubin 0.3 mg/dL (0.15-1.2) 02/16/23 04:30 AST 10 U/L (0-40) 02/16/23 04:30 ALT 9 U/L (0-41) 02/16/23 04:30 Alkaline Phosphatase 98 U/L (40-130) 02/16/23 04:30 Ammonia 19 umol/L (16-60) 02/15/23 05:48 C-Reactive Protein 56.7 mg/L (0.0-4.9) H 02/15/23 05:40 Total Protein 6.4 g/dL (6.6-8.7) L 02/16/23 04:30 Albumin 3.5 g/dL (3.5-5.2) 02/16/23 04:30 Globulin 2.9 g/dL (1.3-4.6) 02/16/23 04:30 Vitamin B12 361 pg/mL (232-1245) 02/15/23 05:40 Urine Color Colorless (Yellow) 02/15/23 05:48 Urine Appearance Clear (CLEAR) 02/15/23 05:48 Urine pH 5 (5-7) 02/15/23 05:48 Ur Specific [place] 1.000 (1.005-1.030) L 02/15/23 05:48 Urine Protein Neg (Negative) 02/15/23 05:48 Urine Glucose (UA) Norm (Normal) 02/15/23 05:48 Urine Ketones Negative (Negative) 02/15/23 05:48 Urine Blood Neg (Negative) 02/15/23 05:48 Urine Nitrate Negative (Negative) 02/15/23 05:48 Urine Bilirubin Neg (Negative) 02/15/23 05:48 Urine Urobilinogen Norm mg/dL (Negative) 02/15/23 05:48 Ur Leukocyte Esterase 1+ (Negative) H 02/15/23 05:48 Urine RBC None /hpf (0-2) 02/15/23 05:48 Urine WBC 0-4 /hpf (0-5) H 02/15/23 05:48 Ur Squamous Epith Cells 0-4 /hpf (0-5) H 02/15/23 05:48 Amorphous Sediment Not Reportable 02/15/23 05:48 Urine Bacteria Trace /hpf (NONE) 02/15/23 05:48 Urine Yeast Trace /hpf 02/15/23 05:48 Vancomycin Trough 22.8 ug/mL (10-15) H 02/17/23 04:38 Urine Opiates Screen Negative ng/mL (Negative) 02/15/23 05:48 Ur Barbiturates Screen Negative ng/mL (Negative) 02/15/23 05:48 Ur Phencyclidine Scrn Negative ng/mL (Negative) 02/15/23 05:48 Ur Amphetamines Screen Negative ng/mL (Negative) 02/15/23 05:48 U Benzodiazepines Scrn Positive ng/mL (Negative) H 02/15/23 05:48 Urine Cocaine Screen Negative ng/mL (Negative) 02/15/23 05:48 U Marijuana (THC) Screen Negative ng/mL (Negative) 02/15/23 05:48 Ethyl Alcohol < 10 mg/dL (0-10) 02/15/23 05:40 Vitals Last Vital Signs Temp 98.1 F 02/18/23 08:00 Pulse 78 02/18/23 08:00 Resp 18 02/18/23 08:00 BP 164/93 02/18/23 08:00 Pulse Ox 97 02/18/23 08:00 O2 Del Method Room Air 02/18/23 08:00 O2 Flow Rate 2 02/18/23 08:00 Discharge Plan Discharge Patient Disposition: Home Condition: Stable Prescriptions: New gabapentin 100 mg Capsule 100 mg PO TID Qty: 90 0RF cyclobenzaprine 10 mg Tablet 5 mg PO TID PRN (Reason: Muscle Spasms) Qty: 20 0RF Continued metformin 500 mg tablet 500 mg PO BID oxybutynin chloride 5 mg tablet 5 mg PO BID thiamine HCl (vitamin B1) 100 mg Tablet 100 mg PO QAM cranberry extract 500 mg Tablet 500 mg PO QAM doxycycline hyclate 100 mg capsule 100 mg PO BID 7 Days Qty: 60 0RF Rx Instructions: for 10d/s (rx filled 02/11/23) Discontinued gabapentin 800 mg tablet 800 mg PO TID methocarbamol 500 mg tablet 500 mg PO QID mirtazapine 30 mg Tablet 60 mg PO BEDTIME nitrofurantoin monohyd/m-cryst [Macrobid] 100 mg capsule 100 mg PO BID 7 Days Qty: 14 0RF Rx Instructions: for 7 days (rx filled 02/11/23) must administer with a meal/food Discharge Orders: Discharge Order (Routine); Ordered 02/18/23 Ordered By: Mynor Yoo Referrals: Jonathan Pham [Primary Care Provider] - 4-7 days Discharge Diet: Diabetic Discharge Activity: Increase activity as tolerated Patient Instructions: Hyponatremia (ED), Benzodiazepine Use Disorder (ED), Dementia (ED), Non-diabetic Hypoglycemia (ED), Hypoglycemia in a Person with Diabetes (ED), Concussion (ED), Alcohol Intoxication (ED), Subarachnoid Hemorrhage (GEN), Altered Mental Status (ED), Opioid Safety Activity Restrictions/Additional Instructions: Continue wound care instructions per wound care physician Doxycycline 100 mg twice daily, continuous, further therapy to be directed by infectious disease Make sure infectious disease follow-up was scheduled Follow-up with wound care next week Discontinue Robaxin. Flexeril as as needed. Return for any concerns Note the discontinuation of mirtazapine. Note the reduction of Neurontin. Discharge Attestations Time Spent in Discharge Care*: greater than 30 min Quality Metrics Clinical Quality Measures [ No reported AMI, CVA or VTE this stay] Coding Level of Care Code 80934 Total time (in minutes) for Discharge: 36 Diagnoses Encephalopathy acute G93.40 Pressure injury of deep tissue of sacral region L89.156 Diabetes mellitus E11.9 Osteomyelitis M86.9
[2023-02-18 10:52] VITALS: BP 182/76; PULSE 86; RESP 16; TEMP 36.6; O2SAT 97
[2023-02-18 11:18] LABS: Glucose Point of Care 155 mg/dL (70-110)
[2023-02-18] MEDS: insulin lispro 100 unit/1 mL SUBCUT (11:29)
[2023-02-18 13:09] VITALS: BP 182/76; PULSE 86; RESP 16; TEMP 36.6; O2SAT 97
== END 2023-02-18 13:10 | disposition home or self-care (01) | DRG 592 ==
LOC: ER 06:37 → ICU 08:43 → MEDSURG 02-16 18:27
PROVIDERS: Emergency Medicine; Admitting Provider Internal Medicine; Emergency Provider Family Medicine; PCP Family Medicine; Visit Provider Internal Medicine
DX: L89.324 Pressure ulcer of left buttock, stage 4 (principal); G93.41 Metabolic encephalopathy; M46.28 Osteomyelitis of vertebra, sacral and sacrococcygeal region; G82.20 Paraplegia, unspecified; L03.317 Cellulitis of buttock; L89.314 Pressure ulcer of right buttock, stage 4; L89.153 Pressure ulcer of sacral region, stage 3; L89.622 Pressure ulcer of left heel, stage 2; E11.69 Type 2 diabetes mellitus with other specified complication; Z93.3 Colostomy status; Z95.828 Presence of other vascular implants and grafts; Z96.0 Presence of urogenital implants; Z79.84 Long term (current) use of oral hypoglycemic drugs; Z87.440 Personal history of urinary (tract) infections; N31.9 Neuromuscular dysfunction of bladder, unspecified; Z87.442 Personal history of urinary calculi
CPT/HCPCS: 36415; 36416; 70450; 71045; 74177; 80048; 80053; 80202; 80306; 80307; 81001; 82140; 82607; 82803; 82962; 83605; 83735; 85025; 85651; 86140; 87040; 87086; 93005; 96365; 96372; 96375; 96376; 99285; J1650; J1815; J2060; J2185; J3370; J7030; J7050; Q9967

== ENCOUNTER → 2023-02-22 10:40 | Outpatient (BNVA) | payer MEDICAID, SELFPAY | PROVIDERS: PCP Family Medicine; Visit Provider Thoracic Surgery (Cardiothoracic Vascular Surgery) | DX: I96 Gangrene, not elsewhere classified (principal); L89.314 Pressure ulcer of right buttock, stage 4; L89.624 Pressure ulcer of left heel, stage 4; L89.324 Pressure ulcer of left buttock, stage 4 | CPT/HCPCS: 11042; 11045; 97597; A6021; A6210 ==

== ENCOUNTER 2023-03-03 21:04 | Inpatient (IN) | payer MEDICAID, SELFPAY ==
[2023-03-03 21:08] VITALS: BP 109/71; PULSE 78; RESP 16; TEMP 36.8; O2SAT 97; BMI 25.0
--- NOTE | 2023-03-03 21:18 | ED_ITS ---
HPI - Altered Mental Status General: Chief Complaint: Altered Mental Status Stated Complaint: HALLUCINATIONS Time Seen by Provider: 03/03/23 21:14 Limitations: altered mental status History of Present Illness: Patient presents to the ER by EMS with complaints of hallucinating. Patient has been seen here several times recently with several admissions for hallucinating, acute metabolic encephalopathy, diabetes, patient has chronic decubitus wounds with chronic osteomyelitis per charting. Patient is unable to answer questions coherently at this time. History was obtained from nurses and the chart. Review of Systems General: Reports: ROS unobtainable due to mental status PFSH ED PFSH: Medical History Diabetes mellitus Neurogenic bladder Obstructive pyelonephritis Osteomyelitis Paraplegia Right ureteral calculus Urinary incontinence Surgical History H/O colostomy History of back surgery Family History Mother , at age 54 Cancer melanoma Father , at age 68 Cancer brain tumor Denies family history of Anesthesia complication Bleeding disorder Social History Alcohol intake: current Alcohol intake frequency: holidays/special occasions only Substance/Drug Use: never Adopted: No Caregiver/support person: No Lives independently: No Household members: spouse Marital status: Current occupational status: disabled Physical Exam Const: COMMON NORMALS: no acute distress, average body habitus, healthy a ppearing, alert and well nourished HENMT: COMMON NORMALS: normocephalic, atraumatic, hearing grossly normal bilaterally, external ears normal, Normal external nose present and moist oral mucous membranes HEAD & SCALP: normocephalic and atraumatic NOSE: Normal external nose present EXTERNAL EAR: Yes external ears normal Eye: COMMON NORMALS: Equal, round and reactive pupils present, EOMs intact bilaterally, conjunctivae normal and no scleral icterus CONJUNCTIVA: Yes conjunctivae normal PUPIL: Yes Equal, round and reactive pupils present Neck/C-Spine: COMMON NORMALS: full ROM, no lymphadenopathy, supple, no meningeal signs, no JVD and Thyroid normal THYROID: Thyroid normal Chest: COMMONS NORMALS: normal inspection of the chest and normal palpation of entire chest wall Resp: COMMON NORMALS: normal respiratory effort, No retractions, No use of accessory muscles and clear to auscultation bilaterally AUSCULTATION: clear to auscultation bilaterally Cardio: COMMON NORMALS: no JVD, regular rate, regular rhythm, S1 normal heart sound present, S2 normal heart sound present, No gallops present (Cardio), No clicks present (Cardio), No murmurs present (Cardio) and No rub (Cardio) RATE: regular rate RHYTHM: regular rhythm HEART SOUNDS: S1 normal heart sound present and S2 normal heart sound present GI: COMMON NORMALS: Normal to inspection, nondistended, normoactive bowel sounds present (Suprapubic catheter and colostomy in place), Soft to palpation, non-tender, No hepatosplenomegaly present and no masses PALPATION: Yes Soft to palpation and Yes No hepatosplenomegaly present Neuro: SENSORIUM/ORIENTATION: Yes alert MENINGEAL SIGNS: Yes no meningeal signs Course Vital Signs: Vital signs: Vital Signs Temperature 98.3 F 03/03/23 21:08 Pulse Rate 57 L 03/03/23 22:39 Respiratory Rate 16 03/03/23 21:08 Blood Pressure 126/78 03/03/23 22:39 Pulse Oximetry 98 03/03/23 22:39 Oxygen Delivery Me thod Room Air 03/03/23 22:39 MDM - Altered Mental Status Medical Decision Making Physical exam was performed lab work was obtained including CT which is pending at the current time Dr. Pate come down we spoke with his about symptoms. It appears that he has been heavily medicated on baclofen and this may be causing the majority of his symptoms currently. Benzos was found in his urine also and we are on for sure where they come from. Because he is not currently on them. Patient will be admitted for altered mental status and weaned off of his medicine as this is more than likely the cause. A CT of his head will be performed because talking to the she admitted that he did have unwitnessed fall. Differential Diagnosis Likely altered mental status; Unlikely alcoholic intoxication, delirium, dementia, hypoglycemia, hyponatremia, subarachnoid hemorrhage or sepsis Medical Records I reviewed the patient's medical records. Lab Data I reviewed the patient's lab results. 03/03/23 22:12 03/03/23 22:12 Laboratory Results WBC 7.5 10^3/uL (4.0-10.0) 03/03/23 22:12 RBC 6.04 10^6/uL (4.1-5.3) H 03/03/23 22:12 Hgb 13.4 g/dL (11.7-16.6) 03/03/23 22:12 Hct 46.7 % (42.0-52.0) 03/03/23 22:12 MCV 77.3 fl (80-94) L 03/03/23 22:12 MCH 22.2 pg (28.0-34.0) L 03/03/23 22:12 MCHC 28.7 g/dL (30.0-36.0) L 03/03/23 22:12 RDW 20.5 % (12.1-15.1) H 03/03/23 22:12 Plt Count 324 10^3/cmm (130-400) 03/03/23 22:12 MPV 10.3 fL (7.4-10.4) 03/03/23 22:12 Neut % (Auto) 66.9 % 03/03/23 22:12 Lymph % (Auto) 20.6 % 03/03/23 22:12 [place] % (Auto) 6.8 % 03/03/23 22:12 Eos % (Auto) 4.2 % 03/03/23 22:12 Baso % (Auto) 0.7 % 03/03/23 22:12 Neut # (Auto) 5.04 10^3/uL (1.8-7.7) 03/03/23 22:12 Lymph # (Auto) 1.6 10^3/uL (0.8-4.8) 03/03/23 22:12 [place] # (Auto) 0.5 10^3/uL (0.2-0.9) 03/03/23 22:12 Eos # (Auto) 0.3 10^3/uL (0.0-0.8) 03/03/23 22:12 Baso # (Auto) 0.1 10^3/uL (0.0-0.1) 03/03/23 22:12 Nucleated RBC % (auto) 0 % 03/03/23 22:12 Nucleated RBCs # 0.0 /100WBC 03/03/23 22:12 Sodium 143 mmol/L (136-145) 03/03/23 22:12 Potassium 4.6 mmol/L (3.5-5.1) 03/03/23 22:12 Chloride 103 mmol/L (98-107) 03/03/23 22:12 Carbon Dioxide 31 mmol/L (22-29) H 03/03/23 22:12 Anion Gap 13.6 (5-19) 03/03/23 22:12 BUN 14 mg/dL (8-23) 03/03/23 22:12 Creatinine 1.0 mg/dL (0.7-1.2) 03/03/23 22:12 GFR Calculation 75.5 mL/min (90-130) L 03/03/23 22:12 Glucose 147 mg/dL (65-115) H 03/03/23 22:12 Calculated Osmolality 299 mOsm/kg (285-295) H 03/03/23 22:12 Calcium 9.4 mg/dL (8.5-10.5) 03/03/23 22:12 Magnesium 2.1 mg/dL (1.7-2.3) 03/03/23 22:12 Total Bilirubin 0.2 mg/dL (0.15-1.2) 03/03/23 22:12 AST 9 U/L (0-40) 03/03/23 22:12 ALT 10 U/L (0-41) 03/03/23 22:12 Alkaline Phosphatase 98 U/L (40-130) 03/03/23 22:12 Ammonia 11 umol/L (16-60) L 03/03/23 22:12 Total Protein 7.6 g/dL (6.6-8.7) 03/03/23 22:12 Albumin 4.1 g/dL (3.5-5.2) 03/03/23 22:12 Globulin 3.5 g/dL (1.3-4.6) 03/03/23 22:12 Urine Color Yellow (Yellow) 03/03/23 21:40 Urine Appearance Cloudy (CLEAR) A 03/03/23 21:40 Urine pH 5 (5-7) 03/03/23 21:40 Ur Specific [place] 1.030 (1.005-1.030) 03/03/23 21:40 Urine Protein 1+ (Negative) H 03/03/23 21:40 Urine Glucose (UA) Norm (Normal) 03/03/23 21:40 Urine Ketones 1+ (Negative) H 03/03/23 21:40 Urine Blood 3+ (Negative) H 03/03/23 21:40 Urine Nitrate Negative (Negative) 03/03/23 21:40 Urine Bilirubin Neg (Negative) 03/03/23 21:40 Urine Urobilinogen Neg mg/dL (Negative) 03/03/23 21:40 Ur Leukocyte Esterase 2+ (Negative) H 03/03/23 21:40 Urine RBC 5-10 /hpf (0-2) H 03/03/23 21:40 Urine WBC 25-40 /hpf (0-5) H 03/03/23 21:40 Ur Squamous Epith Cells None /hpf (0-5) 03/03/23 21:40 Amorphous Sediment Not Reportable 03/03/23 21:40 Urine Bacteria 3+ /hpf (NONE) H 03/03/23 21:40 Fine Granular Casts 0-4 /lpf H 03/03/23 21:40 Urine Yeast 2+ /hpf H 03/03/23 21:40 Urine Opiates Screen Negative ng/mL (Negative) 03/03/23 21:40 Ur Barbiturates Screen Negative ng/mL (Negative) 03/03/23 21:40 Ur Phencyclidine Scrn Negative ng/mL (Negative) 03/03/23 21:40 Ur Amphetamines Screen Negative ng/mL (Negative) 03/03/23 21:40 U Benzodiazepines Scrn Positive ng/mL (Negative) H 03/03/23 21:40 Urine Cocaine Screen Negative ng/mL (Negative) 03/03/23 21:40 U Marijuana (THC) Screen Negative ng/mL (Negative) 03/03/23 21:40 Discharge Plan Discharge Patient Disposition: Placed in Observation Clinical Impression: Altered mental status, Paraplegia Condition: Stable Prescriptions: No Action metformin 500 mg tablet 500 mg PO BID oxybutynin chloride 5 mg tablet 5 mg PO BID thiamine HCl (vitamin B1) 100 mg Tablet 100 mg PO QAM cranberry extract 500 mg Tablet 500 mg PO QAM cyclobenzaprine 10 mg Tablet 5 mg PO TID PRN (Reason: Muscle Spasms) Qty: 20 0RF gabapentin 100 mg Capsule 100 mg PO TID Qty: 90 0RF Referrals: Jonathan Pham [Primary Care Provider] - Patient Instructions: Hyponatremia (ED), Benzodiazepine Use Disorder (ED), Dementia (ED), Non-diabetic Hypoglycemia (ED), Hypoglycemia in a Person with Diabetes (ED), Concussion (ED), Alcohol Intoxication (ED), Subarachnoid Hemorrhage (GEN), Altered Mental Status (ED) Coding Level of Care Code ED Train Control Technician for Radha Roque
[2023-03-03] MEDS: sodium chloride 0.9% 1,000 ML 999 ML IV (21:42)
[2023-03-03 21:58] LABS: Amphetamines Screen Urine Negative (Negative); Barbiturates Screen Urine Negative (Negative); Benzodiazepines Screen Urine Positive (Negative); Cocaine Screen Urine Negative (Negative); Opiate Screen Urine Negative (Negative); PCP Screen Urine Negative (Negative); THC Screen Urine Negative (Negative)
[2023-03-03 22:16] LABS: Add Urine Microscopic? YES; Bilirubin Urine Neg (Negative); Blood Urine 3+ (Negative); Glucose Urine UA Norm (Normal); Ketones Urine 1+ (Negative); Leukocyte Esterase Urine 2+ (Negative); Nitrate Urine Negative (Negative); Protein Urine 1+ (Negative); Urine Appearance Cloudy (CLEAR); Urine Color Yellow (Yellow); Urobilinogen Urine Neg (Negative); pH Urine 5 (5-7)
[2023-03-03 22:17] LABS: Add Urine Culture? Yes; Bacteria Urine 3+ /hpf; Fine Granular Casts Urine 0-4 /lpf; WBC Urine 25-40 /hpf (0-5)
[2023-03-03 22:20] LABS: Basophils # 0.1 10^3/uL (0.0-0.1); Basophils % 0.7 %; Eosinophils # 0.3 10^3/uL (0.0-0.8); Eosinophils % 4.2 %; Hematocrit 46.7 % (42.0-52.0); Hemoglobin 13.4 g/dL (11.7-16.6); Lymphocytes # 1.6 10^3/uL (0.8-4.8); Lymphocytes % 20.6 %; Mean Corpuscular HGB Conc 28.7 g/dL (30.0-36.0); Mean Corpuscular Hemoglobin 22.2 pg (28.0-34.0); Mean Corpuscular Volume 77.3 fl (80-94); Mean Platelet Volume 10.3 fL (7.4-10.4); Monocytes # 0.5 10^3/uL (0.2-0.9); Monocytes % 6.8 %; Neutrophils # 5.04 10^3/uL (1.8-7.7); Neutrophils % 66.9 %; Nucleated Red Blood Cells % 0 %; Platelet Count 324 10^3/cmm (130-400); Red Blood Count 6.04 10^6/uL (4.1-5.3); Red Cell Distribution Width 20.5 % (12.1-15.1); White Blood Count 7.5 10^3/uL (4.0-10.0)
[2023-03-03 22:37] LABS: Alanine Aminotransferase 10 U/L (0-41); Albumin Level 4.1 g/dL (3.5-5.2); Alkaline Phosphatase 98 U/L (40-130); Anion Gap 13.6 (5-19); Aspartate Amino Transferase 9 U/L (0-40); Blood Urea Nitrogen 14 mg/dL (8-23); Calcium 9.4 mg/dL (8.5-10.5); Carbon Dioxide 31 mmol/L (22-29); Chloride 103 mmol/L (98-107); Globulin 3.5 g/dL (1.3-4.6); Glomerular Filtration Rate 75.5 mL/min (90-130); Glucose 147 mg/dL (65-115); Magnesium 2.1 mg/dL (1.7-2.3); Osmolality Calculated 299 mOsm/kg (285-295); Potassium 4.6 mmol/L (3.5-5.1); Sodium 143 mmol/L (136-145); Total Bilirubin 0.2 mg/dL (0.15-1.2); Total Protein 7.6 g/dL (6.6-8.7)
[2023-03-03 22:38] LABS: Ammonia 11 umol/L (16-60)
[2023-03-03 22:39] VITALS: BP 126/78; PULSE 57; O2SAT 98
--- NOTE | 2023-03-03 23:13 | CTR_ITS ---
PROCEDURE INFORMATION: Exam: CT Head Without Contrast Exam date and time: 03/03/2023 11:21 PM Age: 62 years old Clinical indication: Altered mental status/memory loss; Confusion or disorientation; Additional info: AMS fall TECHNIQUE: Imaging protocol: Computed tomography of the head without contrast. Radiation optimization: All CT scans at this facility use at least one of these dose optimization techniques: automated exposure control; mA and/or kV adjustment per patient size (includes targeted exams where dose is matched to clinical indication); or iterative reconstruction. REPORTING DATA: Count of CT and Cardiac NM exams in prior 12 months: This patient has received 4 known CTs and 0 known cardiac nuclear medicine studies in the 12 months prior to the current study. COMPARISON: CT head wo con* [id number] 02/15/2023 6:13 AM RADIATION DOSE METRICS: Total DLP (mGy-cm): 1271.76 FINDINGS: Brain: Normal. No hemorrhage. Unremarkable white matter. No mass effect. Cerebral ventricles: No ventriculomegaly. Paranasal sinuses: Visualized sinuses are unremarkable. No fluid levels. Mastoid air cells: Visualized mastoid air cells are well aerated. Bones/joints: Unremarkable. No acute fracture. Soft tissues: Unremarkable. CT/CT head wo con* [id number] IMPRESSION: No acute intracranial abnormality.
--- NOTE | 2023-03-03 23:14 | PM.HP ---
Providers/Chief Complaint Admitting Physician: Mynor Yoo MD, hospitalist Primary Care Provider: Jonathan Pham Chief Complaint: HALLUCINATIONS History of Present Illness Israel Mullen is a 62 year old male who has had multiple admissions for possible infection, hallucination, medication effect who presents with his to the emergency department with recurrent hallucinations and bizarre behavior. She believes this started possibly Wednesday, although during her narrative it is somewhat unclear. He was recently put back on baclofen 20 mg 3 times daily or 4 times daily on Wednesday. He never reduced his Neurontin to 100 mg 3 times daily, instead taking 400 3 times daily. Several days ago, Wednesday, she found him down and suspected he slept on the floor. No fevers. Catheter has not been changed since last hospital stay. He has not had follow-up with urology, for possible suprapubic catheter. He has had follow-up with wound care. When questioned about benzodiazepines in his urine, reports that there are no benzodiazepines in the house that she knows of, and does not know how this could have possibly been ingested. She reports no history of hallucinations or mental health issues at a younger age. penitentiary placement was attempted last time, but patient refused. I do not believe that he got the new prescription of Neurontin filled that I gave him according to . [place] prescription for doxycycline 100 mg twice daily, potentially for 30 days depending on follow-up with wound care and his primary. I could not determine after his interview whether he had been taking this. Review of Systems General: Reports: ROS unobtainable due to medical condition (Patient with confusion) Medications/Allergies Home Medications Medication Instructions Recorded Confirmed Last Taken Type metformin 500 mg tablet 500 mg PO BID 01/29/23 02/15/23 02/12/23 History oxybutynin chloride 5 mg tablet 5 mg PO BID 01/29/23 02/15/23 02/12/23 History thiamine HCl (vitamin B1) 100 mg 100 mg PO QAM 01/29/23 02/15/23 02/12/23 History tablet cranberry extract 500 mg tablet 500 mg PO QAM 02/15/23 02/15/23 Unknown History cyclobenzaprine 10 mg tablet 5 mg PO TID PRN Muscle Spasms #20 02/18/23 Unknown Rx tabs gabapentin 100 mg capsule 100 mg PO TID #90 caps 02/18/23 Unknown Rx Allergies Allergy/AdvReac Type Severity Reaction Status Date / Time Penicillins Allergy Unknown Unknown Verified 03/03/23 21:14 PFSH Acute PFSH: Medical History Diabetes mellitus Neurogenic bladder Obstructive pyelonephritis Osteomyelitis Paraplegia Right ureteral calculus Urinary incontinence Surgical History H/O colostomy History of back surgery Family History Mother , at age 54 Cancer melanoma Father , at age 68 Cancer brain tumor Denies family history of Anesthesia complication Bleeding disorder Social History Alcohol intake: current Alcohol intake frequency: holidays/special occasions only Substance/Drug Use: never Adopted: No Caregiver/support person: No Lives independently: No Household members: spouse Marital status: Current occupational status: disabled Vitals/I&O/Wt Last Vital Signs Temp 98.3 F 03/03/23 21:08 Pulse 57 L 03/03/23 22:39 Resp 16 03/03/23 21:08 BP 126/78 03/03/23 22:39 Pulse Ox 98 03/03/23 22:39 O2 Del Method Room Air 03/03/23 22:39 Weight last 48 hrs Weight 72.575 kg Physical Exam Narrative: General exam is a white male, who will come alert but is obviously confused. He quickly goes back to sleep HEENT: Atraumatic normocephalic. Pupils equally round. Oropharynx clear. Neck is supple no lymphadenopathy thyromegaly Cardiovascular regular rate and rhythm, no murmur Lungs clear no wheezing or crackles Abdomen is soft. Ostomy noted. Decubitus, both gluteal areas overall unchanged. Odor is still present. Left appears worse than right. Stage IV, tunneled. Heel decubitus also unchanged. No drainage, left heel. Skin see findings above Neuro: Paraplegia. Otherwise no facial droop, upper extremity weakness, or any new findings. Data 03/03/23 22:12 03/03/23 22:12 Other Labs: I have instructed the ER to do a CT head secondary to confusion, history of fall I have ordered a CK, ESR, CRP LFTs are normal Albumin, ammonia, calcium are normal Urinalysis shows 5-10 red blood cells, 25-40 whites Urine drug screen positive for benzodiazepines Blood culture A&P Assessment and plan (1) Encephalopathy acute: Patient presents with acute, and recurrent encephalopathy believes this may have restarted slightly prior to recent medication change on Wednesday where he went back on a muscle relaxant, baclofen His Neurontin was never reduced as previously instructed He has benzodiazepines in his urine There is concern he may have a recurrent UTI Hydrate, close observation, treatment of UTI with antibiotic, urine culture, hold muscle relaxants and Neurontin. Reintroduce Neurontin at lower dose as patient recovers When patient recovers, will need to ask him about benzodiazepines and urine to see if they can be to explained Discharge planning consult. He has had multiple readmissions. would like some more support during this time, but patient has been refusing nursing facility placement. She has other obligations, work, and patient cannot be observed all the time . (2) Recurrent UTI: Change out catheter Initiate Rocephin Urine culture As last urine culture had Enterococcus, resistant to fluoroquinolones and patient is allergic to penicillin we will add vancomycin (3) Diabetes mellitus: Sliding scale insulin (4) Pressure injury of deep tissue of sacral region: Continue dressing changes, offload pressure (5) Fall: Secondary to history of fall at home, acute encephalopathy check noncontrast CT head Check CK Plan Paraplegia Multiple other medical problems as outlined in past medical history Full code Lovenox for DVT prophylaxis Attestations Medical Necessity Statement*: Will require less than 2 midnight stay for evaluation and treatment of acute encephalopathy Diagnoses Encephalopathy acute G93.40 Recurrent UTI N39.0 Diabetes mellitus E11.9 Pressure injury of deep tissue of sacral region L89.156 Fall W19.XXXA Time Spent (min) 38
[2023-03-03 23:30] VITALS: BP 115/73; PULSE 67; O2SAT 100
[2023-03-03 23:42] LABS: C Reactive Protein 65.1 mg/L (0.0-4.9); Creatine Phosphokinase 67 U/L (39-308)
[2023-03-03 23:43] LABS: Erythrocyte Sedimentation Rate 20 mm/hr (0-10)
[2023-03-04] VITALS (8 sets, daily range): BP systolic 101–183; BP diastolic 62–94; PULSE 55–115; RESP 16–19; TEMP 36.4–36.8; O2SAT 96–100
[2023-03-04] MEDS: sodium chloride 0.9% 1,000 ML 100 ML IV ×2 (01:48→12:23)
[2023-03-04] MEDS: cefTRIAXone 1,000 MG in sodium chloride 0.9% (plus) 50 ML 100 MG IV (01:53)
[2023-03-04] MEDS: enoxaparin 40 mg/0.4 mL Syringe SUBCUT (01:55)
[2023-03-04] MEDS: vancomycin 1,000 MG in sodium chloride 0.9% 250 ML 250 MG IV ×2 (02:40→14:51)
[2023-03-04 05:41] LABS: Basophils % 0.2 %; Eosinophils # 0.1 10^3/uL (0.0-0.8); Eosinophils % 2.3 %; Hematocrit 43.7 % (42.0-52.0); Hemoglobin 12.4 g/dL (11.7-16.6); Lymphocytes # 0.9 10^3/uL (0.8-4.8); Lymphocytes % 14.3 %; Mean Corpuscular HGB Conc 28.4 g/dL (30.0-36.0); Mean Corpuscular Hemoglobin 22.5 pg (28.0-34.0); Mean Corpuscular Volume 79.2 fl (80-94); Mean Platelet Volume 10.3 fL (7.4-10.4); Monocytes # 0.2 10^3/uL (0.2-0.9); Monocytes % 2.8 %; Neutrophils # 4.91 10^3/uL (1.8-7.7); Neutrophils % 79.9 %; Nucleated Red Blood Cells % 0 %; Platelet Count 247 10^3/cmm (130-400); Red Blood Count 5.52 10^6/uL (4.1-5.3); Red Cell Distribution Width 20.4 % (12.1-15.1); White Blood Count 6.1 10^3/uL (4.0-10.0)
[2023-03-04 05:59] LABS: Alanine Aminotransferase 8 U/L (0-41); Albumin Level 3.4 g/dL (3.5-5.2); Alkaline Phosphatase 85 U/L (40-130); Blood Urea Nitrogen 13 mg/dL (8-23); Calcium 8.9 mg/dL (8.5-10.5); Carbon Dioxide 27 mmol/L (22-29); Chloride 107 mmol/L (98-107); Globulin 3.9 g/dL (1.3-4.6); Glomerular Filtration Rate 97.6 mL/min (90-130); Glucose 161 mg/dL (65-115); Magnesium 1.9 mg/dL (1.7-2.3); Osmolality Calculated 298 mOsm/kg (285-295); Sodium 142 mmol/L (136-145); Total Bilirubin 0.2 mg/dL (0.15-1.2); Total Protein 7.3 g/dL (6.6-8.7)
[2023-03-04 06:02] LABS: Anion Gap 13.2 (5-19); Aspartate Amino Transferase 12 U/L (0-40); Potassium 5.2 mmol/L (3.5-5.1)
[2023-03-04 06:40] LABS: Glucose Point of Care 148 mg/dL (70-110)
[2023-03-04] MEDS: insulin lispro 100 unit/1 mL SUBCUT ×3 (08:50→17:53)
[2023-03-04 10:59] LABS: Glucose Point of Care 177 mg/dL (70-110)
[2023-03-04 17:02] LABS: Glucose Point of Care 166 mg/dL (70-110)
--- NOTE | 2023-03-04 18:17 | XRR_ITS ---
PROCEDURE INFORMATION: Exam: XR Chest Exam date and time: 03/04/2023 6:42 PM Age: 62 years old Clinical indication: Device placement; Other: Port a cath placement TECHNIQUE: Imaging protocol: Radiologic exam of the chest. Views: 1 view. COMPARISON: CR (CHEST, ) 02/15/2023 5:58 AM FINDINGS: Tubes, catheters and devices: There is a left-sided Port-A-Cath in place with its tip in the superior vena cava directed adjacent to the lateral wall of the cava not changed from previous. Lungs: No focal infiltrate is identified. Pleural spaces: There is no pneumothorax seen. Heart/Mediastinum: Unremarkable. No cardiomegaly. Bones/joints: Postsurgical changes of thoracic spine fusion again identified. XR/XR chest 1V portable [id number] IMPRESSION: No acute findings. No significant change from 02/15/2023
[2023-03-04 20:47] LABS: Glucose Point of Care 134 mg/dL (70-110)
[2023-03-05] VITALS (7 sets, daily range): BP systolic 137–179; BP diastolic 79–93; PULSE 64–104; RESP 15–18; TEMP 36.4–36.9; O2SAT 94–99
--- NOTE | 2023-03-05 00:26 | P.PN_ITS ---
Subjective Subjective: Responding, smiling, responses somewhat sluggish. He is confused. Tells me he is born in 1938. Unable to provide history. Denies pain or discomfort. Vitals/I&O/Wt Last Vital Signs Temp 98.3 F 03/04/23 19:32 Pulse 94 03/04/23 19:32 Resp 16 03/04/23 19:32 BP 154/94 03/04/23 19:32 Pulse Ox 97 03/04/23 19:32 O2 Del Method Room Air 03/04/23 19:32 03/04/23 03/04/23 03/05/23 14:59 22:59 06:59 Intake Total 1240 / 1240 778.333 / 2017.333 0 2017.333 Output Total 1450 / 1450 Balance 1240 / 1240 -671.667 / 568.333 0 / 568.333 Weight last 48 hrs Weight 72.575 kg Physical Exam Const: GENERAL APPEARANCE: cooperative ORIENTATION/CONSCIOUSNESS: Yes awake HENMT: COMMON NORMALS: oropharynx normal Neck/C-Spine: COMMON NORMALS: no JVD Resp: COMMON NORMALS: normal respiratory effort and clear to auscultation bilaterally AUSCULTATION: clear to auscultation bilaterally Cardio: COMMON NORMALS: no JVD, regular rhythm, S1 normal heart sound present, S2 normal heart sound present and No murmurs present (Cardio) RHYTHM: regular rhythm HEART SOUNDS: S1 normal heart sound present and S2 normal heart sound present GI: COMMON NORMALS: Normal to inspection, nondistended, normoactive bowel sounds present, Soft to palpation and non-tender PALPATION: Yes Soft to p alpation Extremity: COMMON NORMALS: no joint enlargement and no pedal edema OTHER: Paraplegic. Lower extremity atrophy. Urinary Catheter Management: Alonso: Cath Placed During This Visit: no Data 03/04/23 05:20 03/04/23 05:20 Micro: Microbiology 03/04/23 00:00 Blood Culture - Preliminary Blood NEGATIVE TO DATE 03/03/23 23:55 Blood Culture - Preliminary Blood NEGATIVE TO DATE A&P Assessment and plan (1) Encephalopathy acute: Continue treatment of UTI. Follow-up culture. Blood culture noted so far negative. WBC noted normal, normal neutrophils. Afebrile. Continue to withhold baclofen. Neurontin. Unclear source of benzodiazepines and UDS. Intervening history had to be obtained from nursing staff. Discussed with case management. Magnesium 1.9. (2) Recurrent UTI: Continue Rocephin, vancomycin. Follow-up culture. Changed out catheter (3) Diabetes mellitus: Sliding scale insulin (4) Pressure injury of deep tissue of sacral region: Continue dressing changes, offload pressure (5) Fall: Secondary to history of fall at home, acute encephalopathy check noncontrast CT head Noted normal CK Plan Hyperkalemia: Changed to low potassium diet. Follow-up chemistry. Noted unremarkable renal function, BUN 13, creatinine 0.8. Unremarkable liver par ameters. Paraplegia Multiple other medical problems as outlined in past medical history Full code Lovenox for DVT prophylaxis Attestations Medical Necessity Statement*: Continue admission for assessment management of acute encephalopathy, possible toxic effect of medications, UTI Diagnoses Encephalopathy acute G93.40 Recurrent UTI N39.0 Diabetes mellitus E11.9 Pressure injury of deep tissue of sacral region L89.156 Fall W19.XXXA
[2023-03-05] MEDS: cefTRIAXone 1,000 MG in sodium chloride 0.9% (plus) 50 ML 100 MG IV (01:48)
[2023-03-05] MEDS: enoxaparin 40 mg/0.4 mL Syringe SUBCUT (01:48)
[2023-03-05] MEDS: vancomycin 1,000 MG in sodium chloride 0.9% 250 ML 250 MG IV ×3 (02:25→21:38)
[2023-03-05 06:08] LABS: Blood Urea Nitrogen 8 mg/dL (8-23); Calcium 8.7 mg/dL (8.5-10.5); Carbon Dioxide 21 mmol/L (22-29); Chloride 106 mmol/L (98-107); Glomerular Filtration Rate 113.9 mL/min (90-130); Glucose 120 mg/dL (65-115); Osmolality Calculated 292 mOsm/kg (285-295); Sodium 141 mmol/L (136-145)
[2023-03-05 06:19] LABS: Anion Gap 18.2 (5-19); Potassium 4.2 mmol/L (3.5-5.1)
[2023-03-05 06:45] LABS: Glucose Point of Care 128 mg/dL (70-110)
[2023-03-05 07:20] LABS: Basophils % 0.3 %; Eosinophils # 0.3 10^3/uL (0.0-0.8); Eosinophils % 3.1 %; Hematocrit 41.4 % (42.0-52.0); Hemoglobin 11.9 g/dL (11.7-16.6); Lymphocytes # 0.6 10^3/uL (0.8-4.8); Lymphocytes % 7.3 %; Mean Corpuscular HGB Conc 28.7 g/dL (30.0-36.0); Mean Corpuscular Hemoglobin 22.3 pg (28.0-34.0); Mean Corpuscular Volume 77.5 fl (80-94); Mean Platelet Volume 10.1 fL (7.4-10.4); Monocytes # 0.4 10^3/uL (0.2-0.9); Monocytes % 4.7 %; Neutrophils # 7.42 10^3/uL (1.8-7.7); Neutrophils % 84.1 %; Nucleated Red Blood Cells % 0 %; Platelet Count 246 10^3/cmm (130-400); Red Blood Count 5.34 10^6/uL (4.1-5.3); Red Cell Distribution Width 20.2 % (12.1-15.1); White Blood Count 8.8 10^3/uL (4.0-10.0)
[2023-03-05] MEDS: sodium chloride 0.9% 1,000 ML 100 ML IV ×2 (08:51→18:59)
--- NOTE | 2023-03-05 08:58 | PC.CHAP ---
Pastoral Care Encounter/Spiritual Assessment Type of Contact [] Declined fabric separator operator visit [] Patient/Family/Request visit [] Outpatient visit [] Follow-up visit [] Physician referral [] Code/Alert [x] Routine visit [] Staff referral [] Actively dying [] Patient sleeping [] Family support [] [] Out of room [] Palliative care [] [] Receiving care in room [] Pre-surgical visit [] Trauma [] Long length of stay [] ICU visit [] Other: Relational/Emotional Strength [] Patient feels connected with others/family/visitors/staff [x] Distress [] Loneliness/isolation [] Abandonment Spirituality of Patient [] Person of Katt [] Attends Gnosticist of their Katt [] Believes in Prayer [] Reads Bible or Mosque materials [] There are Spiritual issues to be addressed unknown due to ams Senior Research Manager Interventions [x] Prayer [] Active listening [] Non-anxious presence [] Spiritual/emotional support [] Crisis/trauma care [] Spiritual counseling [] Bereavement support [] Provided bereavement packet [] Provided Bible/devotional materials [] Provided toy/stuffed animal, coloring book to patient or family member [] Provided Communion [] Anointing/[place] [] Salvation [x] Completed spiritual assessment [] Other: Impact on Illness or Injury [] Angry [] Fearful [] Anxious [] Often cries [] Exhaustion [] Unable to work [] Unable to attend taoist [] Unable to walk/stand [] Unable to read [] Unable to drive [] Unable to eat/drink [] Unable to sleep [] Unable to be with family [] Patient intubated [] Other: Summary prayer seemed to calm him Time spent with patient 5 min
[2023-03-05 10:53] LABS: Glucose Point of Care 125 mg/dL (70-110)
[2023-03-05 13:38] LABS: Vancomycin Trough 11.2 ug/mL (10-15)
[2023-03-05] MEDS: baclofen 10 mg Tablet PO ×2 (15:08→21:39)
[2023-03-05 16:24] LABS: Glucose Point of Care 116 mg/dL (70-110)
--- NOTE | 2023-03-05 19:50 | P.PN_ITS ---
Subjective Subjective: He still does not answer orientation questions correctly today, however, he is more interactive and alert. Denies pain or discomfort. Vitals/I&O/Wt Last Vital Signs Temp 97.5 F L 03/05/23 16:08 Pulse 74 03/05/23 16:08 Resp 18 03/05/23 16:08 BP 171/87 03/05/23 16:08 Pulse Ox 98 03/05/23 16:08 O2 Del Method Room Air 03/05/23 16:08 03/05/23 03/05/23 03/05/23 06:59 14:59 22:59 Intake Total 400 / 2418.333 591.667 / 455.642 9466 / 1841.667 Output Total 500 / 1950 300 / 300 Balance -100 / 468.333 591.667 / 591.667 950 / 1541.667 Weight last 48 hrs Weight 72.575 kg Physical Exam Const: GENERAL APPEARANCE: cooperative ORIENTATION/CONSCIOUSNESS: Yes awake HENMT: COMMON NORMALS: oropharynx normal Neck/C-Spine: COMMON NORMALS: no JVD Resp: COMMON NORMALS: normal respiratory effort and clear to auscultation bilaterally AUSCULTATION: clear to auscultation bilaterally Cardio: COMMON NORMALS: no JVD, regular rhythm, S1 normal heart sound present, S2 normal heart sound present and No murmurs present (Cardio) RHYTHM: regular rhythm HEART SOUNDS: S1 normal heart sound present and S2 normal heart sound present GI: COMMON NORMALS: Normal to inspection, nondistended, normoactive bowel sounds present, Soft to palpation and non-tender PALPATION: Yes Soft to palpation Extremity: COMMON NORMALS: no joint enlargement and no pedal edema OTHER: Paraplegic. Lower extremity atrophy. Urinary Catheter Management: Alonso: Cath Placed During This Visit: yes Reason for Continuing Indwelling Catheter: Other Urinary Catheter Date of Insertion: 03/04/23 Urinary Catheter Time of Insertion: 00:17 Data 03/05/23 07:10 03/05/23 05:44 Micro: Microbiology 03/03/23 21:40 Urine Culture - Preliminary Urine,Clean Catch Yeast 03/04/23 00:00 Blood Culture - Preliminary Blood NEGATIVE TO DATE 03/03/23 23:55 Blood Culture - Preliminary Blood NEGATIVE TO DATE A&P Assessment and plan (1) Encephalopathy acute: He appears to be improving gradually with regards to encephalopathy. He is still not oriented but he is more responsive and alert today. History obtained from nursing staff. Provides minimal review of systems. Information also came January that he was previously on baclofen and it was r ecently suddenly switched to Flexeril, then switched back recently. It was stopped on admission due to concern for possible contributor to encephalopathy, however, as it appears he may have been recently discontinued suddenly and in fact symptoms could be secondary to baclofen withdrawal, resuming baclofen at half dose at this time. Monitor symptoms. At risk of worsening encephalopathy. If continues to improve, resume Neurontin at decreased dose. Continue treatment of UTI. Follow-up culture. Blood culture noted so far negative. WBC noted normal, normal neutrophils. Afebrile. Continue to withhold baclofen. Neurontin. Unclear source of benzodiazepines and UDS. Intervening history had to be obtained from nursing staff. Discussed with case management. Noted sodium 141. (2) Recurrent UTI: Continue Rocephin, vancomycin. Follow-up culture. Vanco level noted 11.2. Noted yeast in urine 50-60,000. We will add Diflucan for possible symptomatic candidal cystitis. Changed out catheter (3) Diabetes mellitus: Sliding scale insulin (4) Pressure injury of deep tissue of sacral region: Continue dressing changes, offload pressure (5) Fall: Secondary to history of fall at home, acute encephalopathy no acute intracranial abnormality on noncontrast CT head Noted normal CK Plan Hyperkalemia: Changed to low potassium diet. Follow-up chemistry. Noted unremarkable renal function, BUN 8, creatinine 0.7. Unremarkable liver parameters. Paraplegia Multiple other medical problems as outlined in past medical history Full code Lovenox for DVT prophylaxis Discussed with his wound care physician. Discussed with case management. Attestations Medical Necessity Statement*: Continue admission for assessment management of acute encephalopathy secondary to possible medication toxicity, possible withdrawal. Resumption of medication at risk of additional toxicity with suspected withdrawal. Treatment of complicated UTI Diagnoses Encephalopathy acute G93.40 Recurrent UTI N39.0 Diabetes mellitus E11.9 Pressure injury of deep tissue of sacral region L89.156 Fall W19.XXXA
[2023-03-05 21:07] LABS: Glucose Point of Care 135 mg/dL (70-110)
[2023-03-06] MEDS: enoxaparin 40 mg/0.4 mL Syringe SUBCUT (02:25)
[2023-03-06] MEDS: cefTRIAXone 1,000 MG in sodium chloride 0.9% (plus) 50 ML 100 MG IV (02:25)
[2023-03-06 03:01] VITALS: BP 181/87; PULSE 57; RESP 16; TEMP 36.6; O2SAT 98
[2023-03-06] MEDS: sodium chloride 0.9% 1,000 ML 100 ML IV (04:48)
[2023-03-06] MEDS: vancomycin 1,000 MG in sodium chloride 0.9% 250 ML 250 MG IV (06:07)
[2023-03-06 06:49] LABS: Basophils % 0.9 %; Eosinophils # 0.2 10^3/uL (0.0-0.8); Eosinophils % 5.1 %; Hematocrit 39.7 % (42.0-52.0); Hemoglobin 11.7 g/dL (11.7-16.6); Lymphocytes # 0.7 10^3/uL (0.8-4.8); Lymphocytes % 16.5 %; Mean Corpuscular HGB Conc 29.5 g/dL (30.0-36.0); Mean Corpuscular Hemoglobin 22.9 pg (28.0-34.0); Mean Corpuscular Volume 77.8 fl (80-94); Mean Platelet Volume 10.5 fL (7.4-10.4); Monocytes # 0.2 10^3/uL (0.2-0.9); Monocytes % 5.1 %; Neutrophils % 71.5 %; Nucleated Red Blood Cells % 0 %; Platelet Count 238 10^3/cmm (130-400); Red Cell Distribution Width 19.8 % (12.1-15.1); White Blood Count 4.5 10^3/uL (4.0-10.0)
[2023-03-06 06:57] LABS: Glucose Point of Care 115 mg/dL (70-110)
[2023-03-06 07:05] LABS: Anion Gap 14.4 (5-19); Blood Urea Nitrogen 8 mg/dL (8-23); Calcium 8.4 mg/dL (8.5-10.5); Carbon Dioxide 24 mmol/L (22-29); Chloride 104 mmol/L (98-107); Glomerular Filtration Rate 113.9 mL/min (90-130); Glucose 114 mg/dL (65-115); Osmolality Calculated 285 mOsm/kg (285-295); Potassium 4.4 mmol/L (3.5-5.1); Sodium 138 mmol/L (136-145)
[2023-03-06 07:15] VITALS: BP 168/88; PULSE 61; RESP 16; TEMP 36.7; O2SAT 98
[2023-03-06] MEDS: baclofen 10 mg Tablet PO ×3 (08:37→21:58)
[2023-03-06] MEDS: fluconazole premix 200 MG/100 ML PREMIX 100 MG IV (09:17)
[2023-03-06 11:12] VITALS: BP 174/79; PULSE 72; RESP 18; TEMP 36.8; O2SAT 98
--- NOTE | 2023-03-06 11:56 | PM.PN ---
Subjective Subjective: He is doing better today. He thinks he is in [place], however, he now is able to tell me that he is in hospital, tells me the year is 2022. Denies any benzodiazepine use at home. Vitals/I&O/Wt Last Vital Signs Temp 98.2 F 03/06/23 11:12 Pulse 72 03/06/23 11:12 Resp 18 03/06/23 11:12 BP 174/79 03/06/23 11:12 Pulse Ox 98 03/06/23 11:12 O2 Del Method Room Air 03/06/23 11:12 03/05/23 03/06/23 03/06/23 22:59 06:59 14:59 Intake Total 1250 / 3981.177 6844.667 / 3123.334 590 / 590 Output Total 800 / 800 450 / 1250 Balance 450 / 1041.667 831.667 / 1873.334 590 / 590 Physical Exam Const: GENERAL APPEARANCE: cooperative ORIENTATION/CONSCIOUSNESS: Yes awake HENMT: COMMON NORMALS: oropharynx normal Neck/C-Spine: COMMON NORMALS: no JVD Resp: COMMON NORMALS: normal respiratory effort and clear to auscultation bilaterally AUSCULTATION: clear to auscultation bilaterally Cardio: COMMON NORMALS: no JVD, regular rhythm, S1 normal heart sound present, S2 normal heart sound present and No murmurs present (Cardio) RHYTHM: regular rhythm HEART SOUNDS: S1 normal heart sound present and S2 normal heart sound present GI: COMMON NORMALS: Normal to inspection, nondistended, normoactive bowel sounds present, Soft to palpation and non-tender PALPATION: Yes Soft to palpation Extremity: COMMON NORMALS: no joint enlargement and no pedal edema OTHER: Paraplegic. Lower extremity atrophy. Urinary Catheter Management: Alonso: Cath Placed During This Visit: yes Reason for Continuing Indwelling Catheter: Other Urinary Catheter Date of Insertion: 03/04/23 Urinary Catheter Time of Insertion: 00:17 Data 03/06/23 05:54 03/06/23 05:54 Micro: Microbiology 03/03/23 21:40 Urine Culture - Preliminary Urine,Clean Catch Yeast A&P Assessment and plan (1) Encephalopathy acute: Encephalopathy continues to gradually improve. He is still not oriented to location, but knows he is in the hospital, knows the year now. Denies any benzodiazepine use at home. History obtained from nursing staff. Restarted on half dose baclofen, so far tolerating. Will resume Neurontin, quetiapine, mirtazapine. At risk of recurrent encephalopathy with resumption of medications. Discussed with him additionally suspected complicated UTI, yeast UTI, started Diflucan. Stop IV fluid. Continue to reorient. Discussed with case management. Chemistry noted electrolytes, renal function WNL. Calcium 8.4. (2) Recurrent UTI: Started Diflucan. Follow-up urine culture. CBC without leukocytosis, neutrophils normal. Mild lymphopenia 0.7. Continue Rocephin, vancomycin. Follow-up culture. Vanco level noted 11.2. Noted yeast in urine 50-60,000. We will add Diflucan for possible symptomatic candidal cystitis. Changed out catheter (3) Diabetes mellitus: Sliding scale insulin (4) Pressure injury of deep tissue of sacral region: Continue dressing changes, offload pressure (5) Fall: Secondary to history of fall at home, acute encephalopathy no acute intracranial abnormality on noncontrast CT head Noted normal CK Plan Hyperkalemia: Changed to low potassium diet. Follow-up chemistry. Noted unremarkable renal function, BUN 8, creatinine 0.7. Unremarkable liver parameters. Paraplegia Multiple other medical problems as outlined in past medical history Full code Lovenox for DVT prophylaxis Discussed with his wound care physician. Discussed with case management. Attestations Medical Necessity Statement*: Continue admission for assessment management of acute encephalopathy, suspected withdrawal from medication, at risk of recurrent encephalopathy with resumption of medications. Monitor. Diagnoses Encephalopathy acute G93.40 Recurrent UTI N39.0 Diabetes mellitus E11.9 Pressure injury of deep tissue of sacral region L89.156 Fall W19.XXXA
[2023-03-06 12:02] LABS: Glucose Point of Care 189 mg/dL (70-110)
[2023-03-06] MEDS: insulin lispro 100 unit/1 mL SUBCUT ×3 (12:20→21:58)
[2023-03-06 14:01] LABS: Vancomycin Trough 25.1 ug/mL (10-15)
[2023-03-06] MEDS: gabapentin 100 mg Capsule PO ×2 (15:14→21:57)
[2023-03-06 16:00] VITALS: BP 171/87; PULSE 68; RESP 16; TEMP 36.7; O2SAT 97
[2023-03-06 16:54] LABS: Glucose Point of Care 143 mg/dL (70-110)
[2023-03-06] MEDS: quetiapine 25 mg Tablet PO (17:40)
[2023-03-06 19:32] VITALS: BP 103/64; PULSE 96; RESP 16; TEMP 36.9; O2SAT 96
[2023-03-06 20:37] LABS: Glucose Point of Care 188 mg/dL (70-110)
[2023-03-06] MEDS: mirtazapine 30 mg Tablet PO (21:57)
[2023-03-06] MEDS: vancomycin 1,250 MG/250 ML PIGGYBACK 250 MG IV (21:58)
[2023-03-06 23:43] VITALS: BP 147/71; PULSE 53; RESP 16; TEMP 36.5; O2SAT 94
[2023-03-07] MEDS: cefTRIAXone 1,000 MG in sodium chloride 0.9% (plus) 50 ML 100 MG IV (01:55)
[2023-03-07] MEDS: enoxaparin 40 mg/0.4 mL Syringe SUBCUT (01:56)
[2023-03-07 03:34] VITALS: BP 137/76; PULSE 62; RESP 16; TEMP 36.9; O2SAT 96
[2023-03-07] MEDS: thiamine 100 mg Tablet PO (06:08)
[2023-03-07 06:18] LABS: Basophils % 0.6 %; Eosinophils # 0.3 10^3/uL (0.0-0.8); Eosinophils % 6.4 %; Hemoglobin 12.2 g/dL (11.7-16.6); Lymphocytes # 1.1 10^3/uL (0.8-4.8); Lymphocytes % 22.9 %; Mean Corpuscular HGB Conc 28.4 g/dL (30.0-36.0); Mean Corpuscular Hemoglobin 21.9 pg (28.0-34.0); Mean Corpuscular Volume 77.1 fl (80-94); Mean Platelet Volume 9.6 fL (7.4-10.4); Monocytes # 0.4 10^3/uL (0.2-0.9); Monocytes % 8.4 %; Neutrophils # 2.83 10^3/uL (1.8-7.7); Neutrophils % 60.6 %; Nucleated Red Blood Cells % 0 %; Platelet Count 237 10^3/cmm (130-400); Red Blood Count 5.58 10^6/uL (4.1-5.3); White Blood Count 4.7 10^3/uL (4.0-10.0)
[2023-03-07 06:42] LABS: Glucose Point of Care 132 mg/dL (70-110)
[2023-03-07 06:47] LABS: Anion Gap 13.7 (5-19); Blood Urea Nitrogen 9 mg/dL (8-23); Calcium 8.7 mg/dL (8.5-10.5); Carbon Dioxide 26 mmol/L (22-29); Chloride 108 mmol/L (98-107); Glomerular Filtration Rate 97.6 mL/min (90-130); Glucose 111 mg/dL (65-115); Osmolality Calculated 297 mOsm/kg (285-295); Potassium 3.7 mmol/L (3.5-5.1); Sodium 144 mmol/L (136-145)
[2023-03-07 07:07] VITALS: BP 151/78; PULSE 58; RESP 16; TEMP 36.4; O2SAT 95
[2023-03-07] MEDS: baclofen 10 mg Tablet PO ×2 (07:50→15:01)
[2023-03-07] MEDS: quetiapine 25 mg Tablet PO (07:50)
[2023-03-07] MEDS: fluconazole premix 200 MG/100 ML PREMIX 100 MG IV (07:51)
[2023-03-07] MEDS: gabapentin 100 mg Capsule PO ×2 (07:51→15:01)
--- NOTE | 2023-03-07 10:44 | P.DS_ITS ---
Discharge Providers Date of Admission: 03/05/23 13:07 Date of Discharge: March 07, 2023 Attending Provider at Admission: Mynor Yoo MD Attending Provider at Discharge: Barak Zhang Primary Care Provider: Jonathan Pham Diagnoses at Discharge Discharge Diagnosis (1) Encephalopathy acute: Status: Acute (2) Recurrent UTI: Status: Acute (3) Diabetes mellitus: Status: Acute (4) Pressure injury of deep tissue of sacral region: Status: Acute (5) Fall: Status: Acute Reason for Visit Reason for Visit: HALLUCINATIONS Hospital Course Hospital Course Pleasant 62-year-old gentleman with multiple past admissions for possible infection, hallucination, medication effect was brought in for evaluation to ER due to recurrent delusions, bizarre behavior, started possibly Wednesday, it seems there was some switching of his medications, none recently, possibly switching from baclofen to Flexeril, appears possibly without a taper, additionally seems he did not reduce his Neurontin dose to 100 mg and continue taking 400 mg 3 times daily, on presentation also urine found to be positive for benzodiazepines, although after resolution of encephalopathy subsequently, denied any benzodiazepine use. On presentation with finding also suspicious for urinary tract infection, empi rically treated with ceftriaxone, vancomycin, urine culture coming back with yeast, antibiotics discontinued at discharge, was started on Diflucan. His encephalopathy otherwise has gradually resolved, he is alert, oriented x3, lucid, pleasant, conversant, without any hallucinations. Possibly acute metabolic encephalopathy secondary to medication toxicity versus possible baclofen withdrawal, would avoid sudden medication discontinuation, possibly encephalopathy secondary to urinary tract infection. Please follow-up for persistent resolution. Physical Exam Const: GENERAL APPEARANCE: cooperative ORIENTATION/CONSCIOUSNESS: Yes awake HENMT: COMMON NORMALS: oropharynx normal Neck/C-Spine: COMMON NORMALS: no JVD Resp: COMMON NORMALS: normal respiratory effort and clear to auscultation bilaterally AUSCULTATION: clear to auscultation bilaterally Cardio: COMMON NORMALS: no JVD, regular rhythm, S1 normal heart sound present, S2 normal heart sound present and No murmurs present (Cardio) RHYTHM: regular rhythm HEART SOUNDS: S1 normal heart sound present and S2 normal heart sound present GI: COMMON NORMALS: Normal to inspection, nondistended, normoactive bowel sounds present, Soft to palpation and non-tender PALPATION: Yes Soft to palpation Extremity: COMMON NORMALS: no joint enlargement and no pedal edema OTHER: Paraplegic. Lower extremity atrophy. Urinary Catheter Management: Alonso: Cath Placed During This Visit: yes Reason for Continuing Indwelling Catheter: Other Urinary Catheter Date of Insertion: 03/04/23 Urinary Catheter Time of Insertion: 00:17 Discharge Data Studies Completed and Pending Completed Studies During Hospitalization Category Date Time Status CT head wo con* [id number] Stat Cat Scan 03/03/23 23:13 Completed XR chest 1V portable [id number] Routine Exams 03/04/23 18:17 Completed Pending at discharge Category Date Time Status Blood Culture Stat Lab 03/03/23 23:55 Results Blood Culture Stat Lab 03/04/23 16:54 Uncollected Urine Culture Stat Lab 03/03/23 21:40 Results Radiology Impressions Head CT 03/03/23 23:13 IMPRESSION: No acute intracranial abnormality. Chest X-Ray 03/04/23 18:17 IMPRESSION: No acute findings. No significant change from 02/15/2023 Laboratory Results WBC 4.7 10^3/uL (4.0-10.0) 03/07/23 05:19 Corrected WBC Cancelled 03/05/23 05:44 RBC 5.58 10^6/uL (4.1-5.3) H 03/07/23 05:19 Hgb 12.2 g/dL (11.7-16.6) 03/07/23 05:19 Hct 43.0 % (42.0-52.0) 03/07/23 05:19 MCV 77.1 fl (80-94) L 03/07/23 05:19 MCH 21.9 pg (28.0-34.0) L 03/07/23 05:19 MCHC 28.4 g/dL (30.0-36.0) L 03/07/23 05:19 RDW 20.0 % (12.1-15.1) H 03/07/23 05:19 Plt Count 237 10^3/cmm (130-400) 03/07/23 05:19 MPV 9.6 fL (7.4-10.4) 03/07/23 05:19 Gran % Cancelled 03/05/23 05:44 Neut % (Auto) 60.6 % 03/07/23 05:19 Lymph % (Auto) 22.9 % 03/07/23 05:19 [place] % (Auto) 8.4 % 03/07/23 05:19 Eos % (Auto) 6.4 % 03/07/23 05:19 Baso % (Auto) 0.6 % 03/07/23 05:19 Neut # (Auto) 2.83 10^3/uL (1.8-7.7) 03/07/23 05:19 Lymph # (Auto) 1.1 10^3/uL (0.8-4.8) 03/07/23 05:19 [place] # (Auto) 0.4 10^3/uL (0.2-0.9) 03/07/23 05:19 Eos # (Auto) 0.3 10^3/uL (0.0-0.8) 03/07/23 05:19 Baso # (Auto) 0.0 10^3/uL (0.0-0.1) 03/07/23 05:19 Absolute Gran (auto) Cancelled 03/05/23 05:44 Nucleated RBC % (auto) 0 % 03/07/23 05:19 Nucleated RBCs # 0.0 /100WBC 03/07/23 05:19 ESR 20 mm/hr (0-10) H 03/03/23 22:12 Sodium 144 mmol/L (136-145) 03/07/23 05:19 Potassium 3.7 mmol/L (3.5-5.1) 03/07/23 05:19 Chloride 108 mmol/L (98-107) H 03/07/23 05:19 Carbon Dioxide 26 mmol/L (22-29) 03/07/23 05:19 Anion Gap 13.7 (5-19) 03/07/23 05:19 BUN 9 mg/dL (8-23) 03/07/23 05:19 Creatinine 0.8 mg/dL (0.7-1.2) 03/07/23 05:19 GFR Calculation 97.6 mL/min (90-130) 03/07/23 05:19 Glucose 111 mg/dL (65-115) 03/07/23 05:19 POC Glucose 132 mg/dL (70-110) H 03/07/23 06:37 Calculated Osmolality 297 mOsm/kg (285-295) H 03/07/23 05:19 Calcium 8.7 mg/dL (8.5-10.5) 03/07/23 05:19 Magnesium 1.9 mg/dL (1.7-2.3) 03/04/23 05:20 Total Bilirubin 0.2 mg/dL (0.15-1.2) 03/04/23 05:20 AST 12 U/L (0-40) 03/04/23 05:20 ALT 8 U/L (0-41) 03/04/23 05:20 Alkaline Phosphatase 85 U/L (40-130) 03/04/23 05:20 Ammonia 11 umol/L (16-60) L 03/03/23 22:12 Creatine Kinase 67 U/L (39-308) 03/03/23 22:12 C-Reactive Protein 65.1 mg/L (0.0-4.9) H 03/03/23 22:12 Total Protein 7.3 g/dL (6.6-8.7) 03/04/23 05:20 Albumin 3.4 g/dL (3.5-5.2) L 03/04/23 05:20 Globulin 3.9 g/dL (1.3-4.6) 03/04/23 05:20 Urine Color Yellow (Yellow) 03/03/23 21:40 Urine Appearance Cloudy (CLEAR) A 03/03/23 21:40 Urine pH 5 (5-7) 03/03/23 21:40 Ur Specific [place] 1.030 (1.005-1.030) 03/03/23 21:40 Urine Protein 1+ (Negative) H 03/03/23 21:40 Urine Glucose (UA) Norm (Normal) 03/03/23 21:40 Urine Ketones 1+ (Negative) H 03/03/23 21:40 Urine Blood 3+ (Negative) H 03/03/23 21:40 Urine Nitrate Negative (Negative) 03/03/23 21:40 Urine Bilirubin Neg (Negative) 03/03/23 21:40 Urine Urobilinogen Neg mg/dL (Negative) 03/03/23 21:40 Ur Leukocyte Esterase 2+ (Negative) H 03/03/23 21:40 Urine RBC 5-10 /hpf (0-2) H 03/03/23 21:40 Urine WBC 25-40 /hpf (0-5) H 03/03/23 21:40 Ur Squamous Epith Cells None /hpf (0-5) 03/03/23 21:40 Amorphous Sediment Not Reportable 03/03/23 21:40 Urine Bacteria 3+ /hpf (NONE) H 03/03/23 21:40 Fine Granular Casts 0-4 /lpf H 03/03/23 21:40 Urine Yeast 2+ /hpf H 03/03/23 21:40 Vancomycin Trough 25.1 ug/mL (10-15) H 03/06/23 13:04 Urine Opiates Screen Negative ng/mL (Negative) 03/03/23 21:40 Ur Barbiturates Screen Negative ng/mL (Negative) 03/03/23 21:40 Ur Phencyclidine Scrn Negative ng/mL (Negative) 03/03/23 21:40 Ur Amphetamines Screen Negative ng/mL (Negative) 03/03/23 21:40 U Benzodiazepines Scrn Positive ng/mL (Negative) H 03/03/23 21:40 Urine Cocaine Screen Negative ng/mL (Negative) 03/03/23 21:40 U Marijuana (THC) Screen Negative ng/mL (Negative) 03/03/23 21:40 Vitals Last Vital Signs Temp 97.6 F 03/07/23 07:07 Pulse 58 L 03/07/23 07:07 Resp 16 03/07/23 07:07 BP 151/78 03/07/23 07:07 Pulse Ox 95 03/07/23 07:07 O2 Del Method Room Air 03/07/23 07:07 Discharge Plan Discharge Patient Disposition: Home Condition: Stable Prescriptions: New fluconazole 200 mg tablet 200 mg PO DAILY Qty: 14 0RF Continued metformin 500 mg tablet 500 mg PO BID oxybutynin chloride 5 mg tablet 5 mg PO BID thiamine HCl (vitamin B1) 100 mg Tablet 100 mg PO QAM cranberry extract 500 mg Tablet 500 mg PO QAM gabapentin 100 mg Capsule 100 mg PO TID Qty: 90 0RF quetiapine 25 mg tablet 25 mg PO BID mirtazapine 30 mg tablet 30 mg PO BEDTIME Changed baclofen 20 mg tablet 10 mg PO TID Qty: 1 0RF Rx Instructions: Dose change only Discontinued cyclobenzaprine 10 mg Tablet 5 mg PO TID PRN (Reason: Muscle Spasms) Qty: 20 0RF Discharge Orders: Discharge Order (Routine); Ordered 03/07/23 Ordered By: Barak Zhang Referrals: Jonathan Pham [Primary Care Provider] - 4-7 days (Please call Wednesday to schedule a follow up appointment with Dr. Pham.) Discharge Diet: Diabetic Patient Instructions: Fluconazole (By mouth), Urinary Tract Infection in Men (GEN), Altered Mental Status (ED) Activity Restrictions/Additional Instructions: Please avoid stopping baclofen cold turkey due to risk of withdrawal. Please taper gradually. Please complete treatment for suspected yeast urinary tract infection with Diflucan. Please follow-up with your primary doctor for reassessment. Seek medical attention in case of any worsening or new concerning symptoms. Continue wound care and follow-up. Discharge Attestations Time Spent in Discharge Care*: greater than 30 min Quality Metrics Clinical Quality Measures [ No reported AMI, CVA or VTE this stay] Coding Level of Care Code 70676 Total time (in minutes) for Discharge: 35 Diagnoses Encephalopathy acute G93.40 Recurrent UTI N39.0 Diabetes mellitus E11.9 Pressure injury of deep tissue of sacral region L89.156 Fall W19.XXXA
[2023-03-07] MEDS: vancomycin 1,250 MG/250 ML PIGGYBACK 250 MG IV (11:34)
[2023-03-07 11:56] VITALS: BP 145/85; PULSE 110; RESP 18; O2SAT 97
[2023-03-07 11:57] LABS: Glucose Point of Care 247 mg/dL (70-110)
[2023-03-07] MEDS: insulin lispro 100 unit/1 mL SUBCUT (12:00)
[2023-03-07 15:30] VITALS: BP 145/81; PULSE 75; RESP 18; TEMP 36.9; O2SAT 98
[2023-03-07 17:01] LABS: Glucose Point of Care 118 mg/dL (70-110)
[2023-03-07 17:46] VITALS: BP 145/81; PULSE 75; RESP 18; TEMP 36.9; O2SAT 98
== END 2023-03-07 17:48 | disposition home or self-care (01) | DRG 689 ==
LOC: ER 23:34 → MEDSURG 03-04 01:19
PROVIDERS: Admitting Provider Internal Medicine; Emergency Provider Emergency Medicine; PCP Family Medicine; Visit Provider Internal Medicine
DX: N39.0 Urinary tract infection, site not specified (principal); G92.8 Other toxic encephalopathy; L89.623 Pressure ulcer of left heel, stage 3; G82.20 Paraplegia, unspecified; T42.6X5A Adverse effect of other antiepileptic and sedative-hypnotic drugs, initial encounter; Z79.84 Long term (current) use of oral hypoglycemic drugs; Z96.0 Presence of urogenital implants; N31.9 Neuromuscular dysfunction of bladder, unspecified; Z93.3 Colostomy status; Z88.0 Allergy status to penicillin; L89.159 Pressure ulcer of sacral region, unspecified stage; W19.XXXA Unspecified fall, initial encounter; E87.5 Hyperkalemia
CPT/HCPCS: 36415; 36416; 51702; 70450; 71045; 80048; 80053; 80202; 80306; 81001; 82140; 82550; 82962; 83735; 85025; 85651; 86140; 87040; 87086; 87106; 96372; 99285; G0378; J0696; J1450; J1650; J1815; J3370; J7030; J7050

== ENCOUNTER → 2023-03-15 10:46 | Outpatient (BNVA) | payer MEDICAID, SELFPAY | PROVIDERS: PCP Family Medicine; Visit Provider Thoracic Surgery (Cardiothoracic Vascular Surgery) | DX: I96 Gangrene, not elsewhere classified (principal); L89.324 Pressure ulcer of left buttock, stage 4; L89.624 Pressure ulcer of left heel, stage 4; L89.314 Pressure ulcer of right buttock, stage 4 | CPT/HCPCS: 11042; 97597; A6021; A6210 ==

== ENCOUNTER → 2023-04-12 10:34 | Outpatient (BNVA) | payer MEDICAID, SELFPAY | PROVIDERS: PCP Family Medicine; Visit Provider Thoracic Surgery (Cardiothoracic Vascular Surgery) | DX: I96 Gangrene, not elsewhere classified (principal); L89.324 Pressure ulcer of left buttock, stage 4; L89.624 Pressure ulcer of left heel, stage 4; L89.314 Pressure ulcer of right buttock, stage 4 | CPT/HCPCS: 97597; 97598; A6021 ==

== ENCOUNTER → 2023-05-10 10:41 | Outpatient (BNVA) | payer MEDICAID, SELFPAY | PROVIDERS: PCP Family Medicine; Visit Provider Nurse Practitioner Family | DX: I96 Gangrene, not elsewhere classified (principal); L89.324 Pressure ulcer of left buttock, stage 4; L89.624 Pressure ulcer of left heel, stage 4; L89.314 Pressure ulcer of right buttock, stage 4; L89.152 Pressure ulcer of sacral region, stage 2 | CPT/HCPCS: 11042; 11045; 97597; A6021 ==

== ENCOUNTER → 2023-06-07 10:57 | Outpatient (BNVA) | payer MEDICAID, SELFPAY | PROVIDERS: PCP Family Medicine; Visit Provider Thoracic Surgery (Cardiothoracic Vascular Surgery) | DX: I96 Gangrene, not elsewhere classified (principal); L89.324 Pressure ulcer of left buttock, stage 4; L89.314 Pressure ulcer of right buttock, stage 4; L89.624 Pressure ulcer of left heel, stage 4; L89.152 Pressure ulcer of sacral region, stage 2; G82.20 Paraplegia, unspecified | CPT/HCPCS: 11042; 11045; 97597; A6220 ==

== ENCOUNTER → 2023-06-14 09:51 | Outpatient (BNVA) | payer MEDICAID, SELFPAY | PROVIDERS: PCP Family Medicine; Visit Provider Nurse Practitioner Family | DX: I96 Gangrene, not elsewhere classified (principal); L89.324 Pressure ulcer of left buttock, stage 4 | CPT/HCPCS: 11042; 11045 ==

== ENCOUNTER → 2023-06-21 10:46 | Outpatient (BNVA) | payer MEDICAID, SELFPAY | PROVIDERS: PCP Family Medicine; Visit Provider Thoracic Surgery (Cardiothoracic Vascular Surgery) | DX: I96 Gangrene, not elsewhere classified (principal); L89.324 Pressure ulcer of left buttock, stage 4; L89.314 Pressure ulcer of right buttock, stage 4 | CPT/HCPCS: 11042; 11045 ==

== ENCOUNTER → 2023-06-28 10:57 | Outpatient (BNVA) | payer MEDICAID, SELFPAY | PROVIDERS: PCP Family Medicine; Visit Provider Thoracic Surgery (Cardiothoracic Vascular Surgery) | DX: I96 Gangrene, not elsewhere classified (principal); L89.324 Pressure ulcer of left buttock, stage 4; L89.314 Pressure ulcer of right buttock, stage 4 | CPT/HCPCS: 11042; 97597; 97598; A6219 ==

== ENCOUNTER → 2023-07-05 10:44 | Outpatient (BNVA) | payer MEDICAID, SELFPAY | PROVIDERS: PCP Family Medicine; Visit Provider Thoracic Surgery (Cardiothoracic Vascular Surgery) | DX: I96 Gangrene, not elsewhere classified (principal); L89.324 Pressure ulcer of left buttock, stage 4; L89.314 Pressure ulcer of right buttock, stage 4 | CPT/HCPCS: 11042; 11045; A6248 ==

== ENCOUNTER → 2023-07-20 11:13 | Outpatient (BNVA) | payer MEDICAID, SELFPAY | PROVIDERS: PCP Family Medicine; Visit Provider Nurse Practitioner Family | DX: I96 Gangrene, not elsewhere classified (principal); L89.324 Pressure ulcer of left buttock, stage 4; L89.314 Pressure ulcer of right buttock, stage 4; L89.153 Pressure ulcer of sacral region, stage 3 | CPT/HCPCS: 11042; 11045 ==

== ENCOUNTER → 2023-07-26 10:46 | Outpatient (BNVA) | payer MEDICAID, SELFPAY | PROVIDERS: PCP Family Medicine; Visit Provider Thoracic Surgery (Cardiothoracic Vascular Surgery) | DX: I96 Gangrene, not elsewhere classified (principal); L89.324 Pressure ulcer of left buttock, stage 4; L89.314 Pressure ulcer of right buttock, stage 4 | CPT/HCPCS: 11042; 97597; 97598 ==

== ENCOUNTER → 2023-08-16 10:50 | Outpatient (BNVA) | payer MEDICAID, SELFPAY | PROVIDERS: PCP Family Medicine; Visit Provider Thoracic Surgery (Cardiothoracic Vascular Surgery) | DX: I96 Gangrene, not elsewhere classified (principal); L89.324 Pressure ulcer of left buttock, stage 4; L89.314 Pressure ulcer of right buttock, stage 4 | CPT/HCPCS: 11042; 11045; A6248 ==

== ENCOUNTER → 2023-08-26 10:13 | Outpatient (BNVA) | payer MEDICAID, SELFPAY | PROVIDERS: PCP Family Medicine; Visit Provider Thoracic Surgery (Cardiothoracic Vascular Surgery) | DX: I96 Gangrene, not elsewhere classified (principal); L89.324 Pressure ulcer of left buttock, stage 4; L89.314 Pressure ulcer of right buttock, stage 4 | CPT/HCPCS: 97597; 97598; A6248 ==

== ENCOUNTER → 2023-09-23 10:23 | Outpatient (BNVA) | payer MEDICAID, SELFPAY | PROVIDERS: PCP Family Medicine; Visit Provider Thoracic Surgery (Cardiothoracic Vascular Surgery) | DX: L89.324 Pressure ulcer of left buttock, stage 4 (principal); L89.314 Pressure ulcer of right buttock, stage 4 | CPT/HCPCS: 97597; 97598; A6021; A6248 ==

== ENCOUNTER → 2023-10-07 11:15 | Outpatient (BNVA) | payer MEDICAID, SELFPAY | PROVIDERS: PCP Family Medicine; Visit Provider Thoracic Surgery (Cardiothoracic Vascular Surgery) | DX: L89.324 Pressure ulcer of left buttock, stage 4 (principal); L89.314 Pressure ulcer of right buttock, stage 4 | CPT/HCPCS: 97597; 97598; A6021; A6248 ==

== ENCOUNTER → 2023-10-12 11:18 | Outpatient (BNVA) | payer MEDICAID, SELFPAY | PROVIDERS: PCP Family Medicine; Visit Provider Student in an Organized Health Care Education/Training Program | DX: M86.9 Osteomyelitis, unspecified (principal); L89.156 Pressure-induced deep tissue damage of sacral region; N31.9 Neuromuscular dysfunction of bladder, unspecified; N39.0 Urinary tract infection, site not specified | CPT/HCPCS: 99214 ==

== ENCOUNTER → 2023-11-04 10:40 | Outpatient (BNVA) | payer MEDICAID, SELFPAY | PROVIDERS: PCP Family Medicine; Visit Provider Thoracic Surgery (Cardiothoracic Vascular Surgery) | DX: L89.314 Pressure ulcer of right buttock, stage 4 (principal); L89.324 Pressure ulcer of left buttock, stage 4 | CPT/HCPCS: 11044; 87070; 87077; 87176; 87186; 87205; 97597 ==

== ENCOUNTER → 2023-11-18 10:33 | Outpatient (BNVA) | payer MEDICAID, SELFPAY | PROVIDERS: PCP Family Medicine; Visit Provider Thoracic Surgery (Cardiothoracic Vascular Surgery) | DX: L89.324 Pressure ulcer of left buttock, stage 4 (principal); L89.314 Pressure ulcer of right buttock, stage 4 | CPT/HCPCS: 97597; 97598 ==

== ENCOUNTER → 2023-12-02 10:38 | Outpatient (BNVA) | payer MEDICAID, SELFPAY | PROVIDERS: PCP Family Medicine; Visit Provider Thoracic Surgery (Cardiothoracic Vascular Surgery) | DX: L89.324 Pressure ulcer of left buttock, stage 4 (principal); L89.314 Pressure ulcer of right buttock, stage 4 | CPT/HCPCS: 97597; 97598 ==

== ENCOUNTER 2023-12-16 12:00 | Outpatient (CLI) | payer MEDICAID, SELFPAY ==
[2023-12-16 12:28] LABS: Basophils % 0.6 %; Eosinophils # 0.3 10^3/uL (0.0-0.8); Hematocrit 41.6 % (37-53); Lymphocytes % 31.2 %; Mean Corpuscular HGB Conc 27.4 g/dL (30-55); Mean Corpuscular Hemoglobin 19.5 pg (27-33); Mean Corpuscular Volume 71.2 fl (82-101); Mean Platelet Volume 9.7 fL (7.4-10.4); Monocytes # 0.4 10^3/uL (0.2-0.9); Monocytes % 5.6 %; Neutrophils % 57.6 %; Nucleated Red Blood Cells % 0 %; Platelet Count 306 10^3/cmm (157-399); Red Blood Count 5.84 10^6/uL (3.85-5.65); Red Cell Distribution Width 20.5 % (12.1-15.1); White Blood Count 6.25 10^3/uL (3.29-11.43)
[2023-12-16 12:50] LABS: Anion Gap 12.8 (5-19); Blood Urea Nitrogen 13 mg/dL (8-23); C Reactive Protein 53.8 mg/L (0.0-4.9); Calcium 8.9 mg/dL (8.5-10.5); Carbon Dioxide 27 mmol/L (22-29); Chloride 99 mmol/L (98-107); Glomerular Filtration Rate 97.3 mL/min (90-130); Glucose 204 mg/dL (65-115); Osmolality Calculated 284 mOsm/kg (285-295); Potassium 4.8 mmol/L (3.5-5.1); Sodium 134 mmol/L (136-145)
== END 2023-12-16 12:01 | disposition home or self-care (01) ==
LOC: LAB 12:02
PROVIDERS: PCP Family Medicine; Visit Provider Thoracic Surgery (Cardiothoracic Vascular Surgery)
DX: M86.9 Osteomyelitis, unspecified (principal); L89.156 Pressure-induced deep tissue damage of sacral region; E11.9 Type 2 diabetes mellitus without complications
CPT/HCPCS: 80048; 85025; 86140; 97597; 97598; A6210

== ENCOUNTER → 2023-12-30 10:53 | Outpatient (BNVA) | payer MEDICAID, SELFPAY | PROVIDERS: PCP Family Medicine; Visit Provider Thoracic Surgery (Cardiothoracic Vascular Surgery) | DX: L89.314 Pressure ulcer of right buttock, stage 4 (principal); L89.324 Pressure ulcer of left buttock, stage 4 | CPT/HCPCS: 97597; 97598; A6210 ==

== ENCOUNTER → 2024-01-13 11:03 | Outpatient (BNVA) | payer MEDICAID, SELFPAY | PROVIDERS: PCP Family Medicine; Visit Provider Thoracic Surgery (Cardiothoracic Vascular Surgery) | DX: L89.324 Pressure ulcer of left buttock, stage 4 (principal); L89.314 Pressure ulcer of right buttock, stage 4 | CPT/HCPCS: 97597; 97598; A6210 ==

== ENCOUNTER → 2024-01-27 10:53 | Outpatient (BNVA) | payer MEDICAID, SELFPAY | PROVIDERS: PCP Family Medicine; Visit Provider Thoracic Surgery (Cardiothoracic Vascular Surgery) | DX: L89.324 Pressure ulcer of left buttock, stage 4 (principal); L89.314 Pressure ulcer of right buttock, stage 4 | CPT/HCPCS: 97597; 97598 ==

== ENCOUNTER → 2024-02-10 09:01 | Outpatient (BNVA) | payer MEDICAID, SELFPAY | PROVIDERS: PCP Family Medicine; Visit Provider Thoracic Surgery (Cardiothoracic Vascular Surgery) | DX: L89.324 Pressure ulcer of left buttock, stage 4 (principal); L89.314 Pressure ulcer of right buttock, stage 4 | CPT/HCPCS: 97597 ==

== ENCOUNTER → 2024-02-24 10:24 | Outpatient (BNVA) | payer MEDICAID, SELFPAY | PROVIDERS: PCP Family Medicine; Visit Provider Thoracic Surgery (Cardiothoracic Vascular Surgery) | DX: L89.324 Pressure ulcer of left buttock, stage 4 (principal); L89.314 Pressure ulcer of right buttock, stage 4 | CPT/HCPCS: 97597; 97598 ==

== ENCOUNTER → 2024-03-09 10:38 | Outpatient (BNVA) | payer MEDICAID, SELFPAY | PROVIDERS: PCP Family Medicine; Visit Provider Thoracic Surgery (Cardiothoracic Vascular Surgery) | DX: L89.324 Pressure ulcer of left buttock, stage 4 (principal); L89.314 Pressure ulcer of right buttock, stage 4 | CPT/HCPCS: 97597; 97598 ==

== ENCOUNTER → 2024-03-23 10:36 | Outpatient (BNVA) | payer MEDICAID, SELFPAY | PROVIDERS: PCP Family Medicine; Visit Provider Thoracic Surgery (Cardiothoracic Vascular Surgery) | DX: I96 Gangrene, not elsewhere classified (principal); L89.314 Pressure ulcer of right buttock, stage 4; L89.324 Pressure ulcer of left buttock, stage 4 | CPT/HCPCS: 97597; 97598 ==

== ENCOUNTER 2024-04-06 12:32 | Outpatient (CLI) | payer MEDICAID, SELFPAY ==
[2024-04-06 13:09] LABS: Basophils % 0.5 %; Eosinophils # 0.1 10^3/uL (0.0-0.8); Hematocrit 48.2 % (37-53); Lymphocytes # 1.2 10^3/uL (0.8-4.8); Mean Corpuscular HGB Conc 27.6 g/dL (30-55); Mean Corpuscular Hemoglobin 20.2 pg (27-33); Mean Corpuscular Volume 73.4 fl (82-101); Mean Platelet Volume 10.3 fL (7.4-10.4); Monocytes # 0.4 10^3/uL (0.2-0.9); Monocytes % 5.9 %; Neutrophils # 4.87 10^3/uL (1.8-7.7); Neutrophils % 73.1 %; Nucleated Red Blood Cells % 0 %; Platelet Count 241 10^3/cmm (157-399); Red Blood Count 6.57 10^6/uL (3.85-5.65); Red Cell Distribution Width 19.6 % (12.1-15.1); White Blood Count 6.65 10^3/uL (3.29-11.43)
[2024-04-06 13:12] LABS: Erythrocyte Sedimentation Rate 50 mm/hr (0-10)
[2024-04-06 13:31] LABS: Anion Gap 14.4 (5-19); Blood Urea Nitrogen 21 mg/dL (8-23); C Reactive Protein 44.4 mg/L (0.0-4.9); Calcium 8.7 mg/dL (8.5-10.5); Carbon Dioxide 29 mmol/L (22-29); Chloride 96 mmol/L (98-107); Glomerular Filtration Rate 97.3 mL/min (90-130); Glucose 419 mg/dL (65-115); Osmolality Calculated 301 mOsm/kg (285-295); Potassium 4.4 mmol/L (3.5-5.1); Sodium 135 mmol/L (136-145)
== END 2024-04-06 12:33 | disposition home or self-care (01) ==
LOC: LAB 12:33
PROVIDERS: PCP Family Medicine; Visit Provider Thoracic Surgery (Cardiothoracic Vascular Surgery)
DX: L89.314 Pressure ulcer of right buttock, stage 4 (principal); E11.9 Type 2 diabetes mellitus without complications; L89.324 Pressure ulcer of left buttock, stage 4; I96 Gangrene, not elsewhere classified
CPT/HCPCS: 36415; 80048; 85025; 85651; 86140; 97597; 97598

== ENCOUNTER 2024-04-20 08:11 | Outpatient (CLI) | payer MEDICAID, SELFPAY ==
--- NOTE | 2024-04-20 08:00 | MRR_ITS ---
PROCEDURE INFORMATION: Exam: MR Pelvis Without and With Contrast Exam date and time: 04/20/2024 8:39 AM Age: 63 years old Clinical indication: Condition or disease; Other: Pressure ulcer of right buttock, stage 4, ; additional info: L89.314 - pressure ulcer of right buttock, stage 4, special attention to RT ischial area open wound TECHNIQUE: Imaging protocol: Magnetic resonance imaging of the pelvis without and with contrast. Contrast material: MULTIHANCE; Contrast volume: 15 ml; Contrast route: INTRAVENOUS (IV); COMPARISON: CT pelvis w con* [id number] 03/26/2023 1:28 PM FINDINGS: Limitations: Motion artifact. Intraperitoneal space: No free fluid. Urinary bladder: The urinary bladder is decompressed with a suprapubic catheter. A mildly diffusely thick-walled appearance of the urinary bladder is greatest anteriorly surrounding the entry site of the catheter, for example on series 501, image 20 measuring 4.3 x 1.6 cm in the axial plane by 3.5 cm superior to inferior. Reproductive: Moderate prominence of the prostate gland. A rounded focus of T1 and T2 hypointensity in the prostate gland on the right measuring 4 mm on series 501, image 24 likely relates to a benign calcification. Lymph nodes: No enlarged nodes. Bones/joints: Bilateral hip joint space narrowing is moderate on the right and mild on the left, with mild, right greater than left femoral head osteophyte formation. Moderate superolateral acetabular osteophyte formation is present. A coarsened appearance of the trabeculae of the pubic bone on the left and bilateral inferior pubic rami as noted, with a similar attenuated size of the ischial tuberosities. Mottled areas of T1 hypointensity these regions are greatest in the region of the ischial tuberosities, corresponding to sclerosis on the comparison CT. There appears to have been surgical resection of the distal sacrum as well as the similar to the prior CT.No bone marrow edema is identified. Soft tissues: Mild edema in the inferior right rectus abdominis muscle is noted surrounding the suprapubic catheter, likely inflammatory. There is mild enhancing skin thickening and subcutaneous edema inferior to the ischial tuberosities, without evidence of a discrete fluid collection. Chronic appearing decubitus ulcerations in these regions are noted. MR/MR pelvis wo/w con [id number] IMPRESSION: 1. No evidence of acute osteomyelitis. 2. Trabecular coarsening, and low signal intensity compatible with sclerosis involving the pubic bone on the left as well as the bilateral inferior pubic rami and ischial tuberosities is noted, with a similar attenuated size of the ischial tuberosities which may be related to previous sequela of osteomyelitis. 3. Mild enhancing subcutaneous edema and skin thickening inferior to the ischial tuberosities is noted in areas of chronic appearing decubitus ulcerations, which may be related to inflammatory changes or infectious cellulitis. No evidence of abscess. 4. Postoperative changes involving the distal sacrum and coccyx appear similar. 5. Abnormal thickening of the wall of the urinary bladder is greatest anteriorly surrounding the suprapubic catheter entry site. This may represent a localized region of inflammatory changes/cystitis. A malignant etiology is less likely but cannot be entirely excluded from this examination. 6. Moderate prominence of the prostate gland. 7. Bilateral hip joint primary osteoarthritic changes.
== END 2024-04-20 08:12 | disposition home or self-care (01) ==
LOC: RAD 08:12
PROVIDERS: PCP Family Medicine; Visit Provider Thoracic Surgery (Cardiothoracic Vascular Surgery)
DX: L89.314 Pressure ulcer of right buttock, stage 4 (principal); R93.7 Abnormal findings on diagnostic imaging of other parts of musculoskeletal system; Z98.890 Other specified postprocedural states; N32.89 Other specified disorders of bladder; Z96.0 Presence of urogenital implants; N40.0 Benign prostatic hyperplasia without lower urinary tract symptoms; M16.0 Bilateral primary osteoarthritis of hip
CPT/HCPCS: 72197

== ENCOUNTER → 2024-04-26 10:19 | Outpatient (BNVA) | payer MEDICAID, SELFPAY | PROVIDERS: PCP Family Medicine; Visit Provider Thoracic Surgery (Cardiothoracic Vascular Surgery) | DX: I96 Gangrene, not elsewhere classified (principal); L89.324 Pressure ulcer of left buttock, stage 4; L89.314 Pressure ulcer of right buttock, stage 4 | CPT/HCPCS: 97597; 97598 ==

== ENCOUNTER → 2024-05-25 10:52 | Outpatient (BNVA) | payer MEDICAID, SELFPAY | PROVIDERS: PCP Family Medicine; Visit Provider Thoracic Surgery (Cardiothoracic Vascular Surgery) | DX: I96 Gangrene, not elsewhere classified (principal); L89.324 Pressure ulcer of left buttock, stage 4; L89.314 Pressure ulcer of right buttock, stage 4 | CPT/HCPCS: 97597; 97598; A6210 ==

== ENCOUNTER → 2024-06-22 10:47 | Outpatient (BNVA) | payer MEDICAID, SELFPAY | PROVIDERS: PCP Family Medicine; Visit Provider Thoracic Surgery (Cardiothoracic Vascular Surgery) | DX: I96 Gangrene, not elsewhere classified (principal); L89.324 Pressure ulcer of left buttock, stage 4; L89.314 Pressure ulcer of right buttock, stage 4 | CPT/HCPCS: 11042 ==

== ENCOUNTER → 2024-07-20 10:42 | Outpatient (BNVA) | payer MEDICAID, SELFPAY | PROVIDERS: PCP Family Medicine; Visit Provider Thoracic Surgery (Cardiothoracic Vascular Surgery) | DX: I96 Gangrene, not elsewhere classified (principal); L89.324 Pressure ulcer of left buttock, stage 4; L89.314 Pressure ulcer of right buttock, stage 4 | CPT/HCPCS: 97597; 97598; A6210 ==

== ENCOUNTER → 2024-08-24 10:49 | Outpatient (BNVA) | payer MEDICAID, SELFPAY | PROVIDERS: PCP Family Medicine | DX: I96 Gangrene, not elsewhere classified (principal); L89.324 Pressure ulcer of left buttock, stage 4; L89.314 Pressure ulcer of right buttock, stage 4 | CPT/HCPCS: 11042; A6210 ==

== ENCOUNTER → 2024-09-21 10:41 | Outpatient (BNVA) | payer MEDICAID, SELFPAY | PROVIDERS: PCP Family Medicine; Visit Provider Thoracic Surgery (Cardiothoracic Vascular Surgery) | DX: I96 Gangrene, not elsewhere classified (principal); L89.314 Pressure ulcer of right buttock, stage 4; L89.324 Pressure ulcer of left buttock, stage 4 | CPT/HCPCS: 11042; 97597; A6210 ==

== ENCOUNTER → 2024-10-19 10:24 | Outpatient (BNVA) | payer MEDICAID, SELFPAY | PROVIDERS: PCP Family Medicine; Visit Provider Thoracic Surgery (Cardiothoracic Vascular Surgery) | DX: I96 Gangrene, not elsewhere classified (principal); L89.324 Pressure ulcer of left buttock, stage 4; L89.314 Pressure ulcer of right buttock, stage 4 | CPT/HCPCS: 97597; A6210 ==

== ENCOUNTER → 2024-11-16 10:42 | Outpatient (BNVA) | payer MEDICAID, SELFPAY | PROVIDERS: PCP Family Medicine; Visit Provider Thoracic Surgery (Cardiothoracic Vascular Surgery) | DX: I96 Gangrene, not elsewhere classified (principal); L89.324 Pressure ulcer of left buttock, stage 4; L89.314 Pressure ulcer of right buttock, stage 4 | CPT/HCPCS: 97597; A6210 ==

== ENCOUNTER → 2024-12-21 10:52 | Outpatient (BNVA) | payer MEDICAID, SELFPAY | PROVIDERS: PCP Family Medicine; Visit Provider Thoracic Surgery (Cardiothoracic Vascular Surgery) | DX: I96 Gangrene, not elsewhere classified (principal); L89.314 Pressure ulcer of right buttock, stage 4; L89.324 Pressure ulcer of left buttock, stage 4 | CPT/HCPCS: 97597 ==

== ENCOUNTER 2025-01-09 17:05 | Inpatient (IN) | payer OTHER, MEDICAID, SELFPAY ==
[2025-01-09 17:12] VITALS: BP 114/66; PULSE 74; RESP 18; TEMP 36.8; O2SAT 96
--- NOTE | 2025-01-09 17:19 | CTR_ITS ---
PROCEDURE INFORMATION: Exam: CT Head Without Contrast Exam date and time: 01/09/2025 5:37 PM Age: 64 years old Clinical indication: Altered mental status/memory loss; Confusion or disorientation; Additional info: AMS TECHNIQUE: Imaging protocol: Computed tomography of the head without contrast. Radiation optimization: All CT scans at this facility use at least one of these dose optimization techniques: automated exposure control; mA and/or kV adjustment per patient size (includes targeted exams where dose is matched to clinical indication); or iterative reconstruction. COMPARISON: CT head wo con* [id number] 03/03/2023 11:21 PM RADIATION DOSE METRICS: Total DLP (mGy-cm): 1159.68 FINDINGS: Brain: Normal. No hemorrhage. Unremarkable white matter. No mass effect. Cerebral ventricles: No ventriculomegaly. Paranasal sinuses: Visualized sinuses are unremarkable. No fluid levels. Mastoid air cells: Visualized mastoid air cells are well aerated. Bones: Unremarkable. No acute fracture. Soft tissues: Unremarkable. CT/CT head wo con* [id number] IMPRESSION: No acute intracranial abnormality.
--- NOTE | 2025-01-09 17:20 | ECG_ITS ---
[facility] Date: 2025-01-09 Pat Name: Israel Mullen Department: Room: Gender: Male [employer]: : 1960 Requested By: Mack De La Fuente Order Number: [id number] Reading MD: Measurements Intervals [place] Rate: 73 P: 60 CO: 194 QRS: 47 QRSD: 89 T: 66 QT: 395 QTc: 436 Interpretive Statements SINUS RHYTHM [email or web address]
--- NOTE | 2025-01-09 17:20 | W.ED.AMS ---
Documented by User: Mack Benitez DO 01/09/25 18:09 HPI - Altered Mental Status General: Chief Complaint: ER Hold Stated Complaint: dizzy, confusion Time Seen by Provider: 01/09/25 17:19 History of Present Illness: 64-year-old male presents to the emergency room with dizziness and confusion. He woke up from sleep had a brief period of time he was very dizzy and confused this resolved he is alert and oriented now and back at his baseline. Related Data Home Medications ?Medication ?Instructions ?Recorded ?Confirmed metformin 500 mg tablet 500 mg PO BID 01/29/23 10/12/23 oxybutynin chloride 5 mg tablet 5 mg PO BID 01/29/23 10/12/23 thiamine HCl (vitamin B1) 100 mg 100 mg PO QAM 01/29/23 10/12/23 tablet cranberry extract 500 mg tablet 500 mg PO QAM 02/15/23 10/12/23 mirtazapine 30 mg tablet 30 mg PO BEDTIME 03/04/23 10/12/23 quetiapine 25 mg tablet 25 mg PO BID 03/04/23 10/12/23 Previous Rx's ?Medication ?Instructions ?Recorded gabapentin 100 mg capsule 100 mg PO TID #90 caps 02/18/23 baclofen 20 mg tablet 10 mg (1/2 x 20 mg) PO TID #1 tab 03/07/23 fluconazole 200 mg tablet 200 mg PO DAILY #14 tabs 03/07/23 ascorbic acid (vitamin C) 500 mg 500 mg PO DAILY 30 days #30 tabs 10/12/23 chewable tablet methenamine hippurate 1 gram tablet 1 g PO BID 30 days #60 tabs 10/12/23 sulfamethoxazole 800 1 tab PO BID #28 tabs 12/16/23 mg-trimethoprim 160 mg tablet (Bactrim DS) Allergies Allergy/AdvReac Type Severity Reaction Status Date / Time Penicillins Allergy Unknown Unknown Verified 10/12/23 11:28 Review of Systems Const: Denies: fever(s) or chills Card: Denies: chest pain Resp: Denies: dyspnea GI: Denies: abdominal pain : Denies: dysuria, urinary frequency or urinary urgency Musc: Denies: neck pain or back pain Skin/Breast: Denies: rash PFSH ED PFSH: Medical History Diabetes mellitus Urinary incontinence Osteomyelitis Right ureteral calculus Obstructive pyelonephritis Neurogenic bladder Paraplegia Surgical History History of back surgery H/O colostomy Family History Mother , at age 54 Cancer melanoma Father , at age 68 Cancer brain tumor Denies family history of Anesthesia complication Bleeding disorder Social History Alcohol intake: current Alcohol intake frequency: holidays/special occasions only Substance/Drug Use: never Adopted: No Caregiver/support person: No Lives independently: No Household members: spouse Marital status: Current occupational status: disabled Physical Exam Const: COMMON NORMALS: no acute distress GENERAL APPEARANCE: cooperative and comfortable ORIENTATION/CONSCIOUSNESS: Yes awake, Yes oriented to person, Yes oriented to place and Yes oriented to time HENMT: COMMON NORMALS: normocephalic, atraumatic and hearing grossly normal bilaterally HEAD & SCALP: normocephalic and atraumatic Resp: COMMON NORMALS: normal respiratory effort, No retractions, No use of accessory muscles and clear to auscultation bilaterally AUSCULTATION: clear to auscultation bilaterally Cardio: COMMON NORMALS: regular rate, regular rhythm and No murmurs present (Cardio) RATE: regular rate RHYTHM: regular rhythm GI: COMMON NORMALS: Soft to palpation and No hepatosplenomegaly present AUSCULTATION: Yes normoactive bowel sounds PALPATION: Yes Soft to palpation, No Tenderness to palpation present (GI), No Guarding due to palpation present (GI) and Yes No hepatosplenomegaly present Extremity: COMMON NORMALS: normal to inspection, capillary refill normal, no clubbing, cyanosis or edema, no calf tenderness and no pedal edema Neuro: SENSORIUM/ORIENTATION: Yes oriented to person, Yes oriented to place and Yes oriented to time Skin: COMMON NORMALS: no rashes or lesions noted GENERAL SKIN EXAM: no rashes or lesions noted Course Vital Signs: Vital signs: Vital Signs Temperature 98.3 F 01/09/25 17:12 Pulse Rate 68 01/09/25 20:56 Respiratory Rate 14 01/09/25 20:56 Blood Pressure 144/70 01/09/25 20:56 Pulse Oximetry 98 01/09/25 20:56 Oxygen Delivery Me thod Room Air 01/09/25 21:30 MDM - Altered Mental Status Lab Data 01/09/25 17:57 01/09/25 17:[address] 01/09/25 17:19 IMPRESSION: No acute intracranial abnormality. Chest X-Ray 01/09/25 18:42 IMPRESSION: 1. No acute findings. 2. Stable mediastinal soft tissue thickening 3. Surgical changes Laboratory Results WBC 9.61 10^3/uL (3.29-11.43) 01/09/25 17:57 RBC 5.41 10^6/uL (3.85-5.65) 01/09/25 17:57 Hgb 13.00 g/dL (11.27-16.99) 01/09/25 17:57 Hct 44.0 % (37-53) 01/09/25 17:57 MCV 81.3 fl (82-101) L 01/09/25 17:57 MCH 24.0 pg (27-33) L 01/09/25 17:57 MCHC 29.5 g/dL (30-55) L 01/09/25 17:57 RDW 19.3 % (12.1-15.1) H 01/09/25 17:57 Plt Count 279 10^3/cmm (157-399) 01/09/25 17:57 MPV 10.3 fL (7.4-10.4) 01/09/25 17:57 Neut % (Auto) 61.9 % 01/09/25 17:57 Lymph % (Auto) 21.7 % 01/09/25 17:57 [place] % (Auto) 5.2 % 01/09/25 17:57 Eos % (Auto) 10.1 % 01/09/25 17:57 Baso % (Auto) 0.5 % 01/09/25 17:57 Neut # (Auto) 5.94 10^3/uL (1.8-7.7) 01/09/25 17:57 Lymph # (Auto) 2.1 10^3/uL (0.8-4.8) 01/09/25 17:57 [place] # (Auto) 0.5 10^3/uL (0.2-0.9) 01/09/25 17:57 Eos # (Auto) 1.0 10^3/uL (0.0-0.8) H 01/09/25 17:57 Baso # (Auto) 0.1 10^3/uL (0.0-0.1) 01/09/25 17:57 Nucleated RBC % (auto) 0 % 01/09/25 17:57 Nucleated RBCs # 0.0 /100WBC 01/09/25 17:57 Specimen Type Arterial 01/09/25 17:50 Sample Site Radial, right 01/09/25 17:50 ABG pH 7.41 (7.35-7.45) 01/09/25 17:50 ABG pCO2 38.1 mmHg (35-45) 01/09/25 17:50 ABG pO2 79.3 mmHg (80.0-100.0) L 01/09/25 17:50 ABG PO2/FiO2 Ratio 377 01/09/25 17:50 ABG HCO3 23.9 mmol/L (22-26) 01/09/25 17:50 ABG O2 Saturation 95.8 01/09/25 17:50 ABG Base Excess -0.7 mmol/L (-2.0-2.0) 01/09/25 17:50 Jose Test Pos 01/09/25 17:50 A-a O2 Gradient 3.0 mmHg (5-10) L 01/09/25 17:50 Hematocrit 39.6 % (42-52) L 01/09/25 17:50 Hgb O2 Saturation 87.9 % (95-100) L 01/09/25 17:50 Carboxyhemoglobin 5.8 %THgb (0.4-20.1) 01/09/25 17:50 Methemoglobin 2.5 % (0.4-1.5) H 01/09/25 17:50 Total Hemoglobin 12.9 g/dL (14-18) L 01/09/25 17:50 Sodium 139.0 mmol/L (131-143) 01/09/25 17:50 Potassium 4.2 mmol/L (3.5-5.0) 01/09/25 17:50 Glucose 163.0 mg/dL (70-115) H 01/09/25 17:50 Ionized Calcium 1.2 mmol/L (1.1-1.4) 01/09/25 17:50 O2 Delivery Device Room air 01/09/25 17:50 FiO2 21.0 % 01/09/25 17:50 Perfume And Toilet Water Maker ID Alisha 01/09/25 17:50 Sodium 139 mmol/L (136-145) 01/09/25 17:57 Potassium 4.3 mmol/L (3.5-5.1) 01/09/25 17:57 Chloride 103 mmol/L (98-107) 01/09/25 17:57 Carbon Dioxide 23 mmol/L (22-29) 01/09/25 17:57 Anion Gap 17.3 (5-19) 01/09/25 17:57 BUN 16 mg/dL (8-23) 01/09/25 17:57 Creatinine 0.9 mg/dL (0.7-1.2) 01/09/25 17:57 GFR Calculation 84.7 mL/min (90-130) L 01/09/25 17:57 Glucose 162 mg/dL (65-115) H 01/09/25 17:57 Calculated Osmolality 293 mOsm/kg (285-295) 01/09/25 17:57 Lactic Acid 2.3 mmol/L (0.5-2.2) H 01/09/25 17:57 Calcium 9.1 mg/dL (8.5-10.5) 01/09/25 17:57 Total Bilirubin 0.2 mg/dL (0.15-1.2) 01/09/25 17:57 AST 13 U/L (0-40) 01/09/25 17:57 ALT 21 U/L (0-41) 01/09/25 17:57 Alkaline Phosphatase 68 U/L (40-130) 01/09/25 17:57 Total Protein 7.4 g/dL (6.6-8.7) 01/09/25 17:57 Albumin 3.8 g/dL (3.5-5.2) 01/09/25 17:57 Globulin 3.6 g/dL (1.3-4.6) 01/09/25 17:57 Urine Color Dark yellow (Yellow) A 01/09/25 19:11 Urine Appearance Turbid (CLEAR) A 01/09/25 19:11 Urine pH 8.5 (5-7) A 01/09/25 19:11 Ur Specific [place] 1.031 (1.005-1.030) H 01/09/25 19:11 Urine Protein 3+ (Negative) A 01/09/25 19:11 Urine Glucose (UA) Negative (Normal) 01/09/25 19:11 Urine Ketones Trace (Negative) 01/09/25 19:11 Urine Blood 2+ (Negative) A 01/09/25 19:11 Urine Nitrate Positive (Negative) A 01/09/25 19:11 Urine Bilirubin Negative (Negative) 01/09/25 19:11 Urine Urobilinogen 1.0 mg/dL (Negative) 01/09/25 19:11 Ur Leukocyte Esterase 3+ (Negative) A 01/09/25 19:11 Urine RBC 10-15 /hpf (0-2) H 01/09/25 19:11 Urine WBC 80-100 /hpf (0-5) H 01/09/25 19:11 Ur Squamous Epith Cells 0-4 /hpf (0-5) H 01/09/25 19:11 Triple Phos Crystals 5-10 /hpf H 01/09/25 19:11 Amorphous Sediment 1+ /hpf 01/09/25 19:11 Urine Bacteria 3+ /hpf (NONE) H 01/09/25 19:11 Hyaline Casts 0-4 /lpf H 01/09/25 19:11 Urine Mucus None /hpf 01/09/25 19:11 Urine Opiates Screen Negative ng/mL (Negative) 01/09/25 19:11 Ur Barbiturates Screen Negative ng/mL (Negative) 01/09/25 19:11 Ur Phencyclidine Scrn Negative ng/mL (Negative) 01/09/25 19:11 Ur Amphetamines Screen Negative ng/mL (Negative) 01/09/25 19:11 U Benzodiazepines Scrn Negative ng/mL (Negative) 01/09/25 19:11 Urine Cocaine Screen Negative ng/mL (Negative) 01/09/25 19:11 U Marijuana (THC) Screen Negative ng/mL (Negative) 01/09/25 19:11 Serum Ketones Negative (Negative) 01/09/25 17:57 Discharge Plan Discharge Patient Disposition: Placed in Observation Admit Provider: Chuy Gallo Clinical Impression: Catheter-associated urinary tract infection, Hallucinations, Somnolence Sign Out Sign Out Data: Patient Sign Out occurred on 01/09/25 at 18:33. Patient's care was discussed, and care was transferred from Mack Benitez DO to Jonathan Gan MD. Post-Handoff Eval: Clinical picture most consistent with catheter associated UTI causing hallucinations and somnolence. Given IV fluids and ceftriaxone and admitted to the hospitalist service in stable condition Coding Level of Care Code ED Drill Presser for Chg Fwd Documented by User: Jonathan Gan MD 01/09/25 21:37 HPI - Altered Mental Status General: Chief Complaint: ER Hold Stated Complaint: dizzy, confusion Time Seen by Provider: 01/09/25 17:19 Related Data Home Medications ?Medication ?Instructions ?Recorded ?Confirmed metformin 500 mg tablet 500 mg PO BID 01/29/23 10/12/23 oxybutynin chloride 5 mg tablet 5 mg PO BID 01/29/23 10/12/23 thiamine HCl (vitamin B1) 100 mg 100 mg PO QAM 01/29/23 10/12/23 tablet cranberry extract 500 mg tablet 500 mg PO QAM 02/15/23 10/12/23 mirtazapine 30 mg tablet 30 mg PO BEDTIME 03/04/23 10/12/23 quetiapine 25 mg tablet 25 mg PO BID 03/04/23 10/12/23 Previous Rx's ?Medication ?Instructions ?Recorded gabapentin 100 mg capsule 100 mg PO TID #90 caps 02/18/23 baclofen 20 mg tablet 10 mg (1/2 x 20 mg) PO TID #1 tab 03/07/23 fluconazole 200 mg tablet 200 mg PO DAILY #14 tabs 03/07/23 ascorbic acid (vitamin C) 500 mg 500 mg PO DAILY 30 days #30 tabs 10/12/23 chewable tablet methenamine hippurate 1 gram tablet 1 g PO BID 30 days #60 tabs 10/12/23 sulfamethoxazole 800 1 tab PO BID #28 tabs 12/16/23 mg-trimethoprim 160 mg tablet (Bactrim DS) Allergies Allergy/AdvReac Type Severity Reaction Status Date / Time Penicillins Allergy Unknown Unknown Verified 10/12/23 11:28 PFSH ED PFSH: Medical History Diabetes mellitus Urinary incontinence Osteomyelitis Right ureteral calculus Obstructive pyelonephritis Neurogenic bladder Paraplegia Surgical History History of back surgery H/O colostomy Family History Mother , at age 54 Cancer melanoma Father , at age 68 Cancer brain tumor Denies family history of Anesthesia complication Bleeding disorder Social History Alcohol intake: current Alcohol intake frequency: holidays/special occasions only Substance/Drug Use: never Adopted: No Caregiver/support person: No Lives independently: No Household members: spouse Marital status: Current occupational status: disabled Course Vital Signs: Vital signs: Vital Signs Temperature 98.3 F 01/09/25 17:12 Pulse Rate 68 01/09/25 20:56 Respiratory Rate 14 01/09/25 20:56 Blood Pressure 144/70 01/09/25 20:56 Pulse Oximetry 98 01/09/25 20:56 Oxygen Delivery Me thod Room Air 01/09/25 21:30 MDM - Altered Mental Status Medical Decision Making Majority of labs are noncontributory. Vital signs are stable. Urinalysis shows new elevation in nitrates. Culture will be sent. Given history of somnolence and hallucinations thinking that was his mother, I strongly suspect catheter associated UTI. states that suprapubic catheter normally gets changed once a month and it is time for a change. Urine is darker than usual. White blood cell count is not elevated, blood pressure is stable, and there were no other obvious signs of sepsis. He will be given ceftriaxone and IV fluids and admitted observation status to the hospitalist service. Patient and are agreeable to the plan. Lab Data 01/09/25 17:57 01/09/25 17:[address] 01/09/25 17:19 IMPRESSION: No acute intracranial abnormality. Chest X-Ray 01/09/25 18:42 IMPRESSION: 1. No acute findings. 2. Stable mediastinal soft tissue thickening 3. Surgical changes Laboratory Results WBC 9.61 10^3/uL (3.29-11.43) 01/09/25 17:57 RBC 5.41 10^6/uL (3.85-5.65) 01/09/25 17:57 Hgb 13.00 g/dL (11.27-16.99) 01/09/25 17:57 Hct 44.0 % (37-53) 01/09/25 17:57 MCV 81.3 fl (82-101) L 01/09/25 17:57 MCH 24.0 pg (27-33) L 01/09/25 17:57 MCHC 29.5 g/dL (30-55) L 01/09/25 17:57 RDW 19.3 % (12.1-15.1) H 01/09/25 17:57 Plt Count 279 10^3/cmm (157-399) 01/09/25 17:57 MPV 10.3 fL (7.4-10.4) 01/09/25 17:57 Neut % (Auto) 61.9 % 01/09/25 17:57 Lymph % (Auto) 21.7 % 01/09/25 17:57 [place] % (Auto) 5.2 % 01/09/25 17:57 Eos % (Auto) 10.1 % 01/09/25 17:57 Baso % (Auto) 0.5 % 01/09/25 17:57 Neut # (Auto) 5.94 10^3/uL (1.8-7.7) 01/09/25 17:57 Lymph # (Auto) 2.1 10^3/uL (0.8-4.8) 01/09/25 17:57 [place] # (Auto) 0.5 10^3/uL (0.2-0.9) 01/09/25 17:57 Eos # (Auto) 1.0 10^3/uL (0.0-0.8) H 01/09/25 17:57 Baso # (Auto) 0.1 10^3/uL (0.0-0.1) 01/09/25 17:57 Nucleated RBC % (auto) 0 % 01/09/25 17:57 Nucleated RBCs # 0.0 /100WBC 01/09/25 17:57 Specimen Type Arterial 01/09/25 17:50 Sample Site Radial, right 01/09/25 17:50 ABG pH 7.41 (7.35-7.45) 01/09/25 17:50 ABG pCO2 38.1 mmHg (35-45) 01/09/25 17:50 ABG pO2 79.3 mmHg (80.0-100.0) L 01/09/25 17:50 ABG PO2/FiO2 Ratio 377 01/09/25 17:50 ABG HCO3 23.9 mmol/L (22-26) 01/09/25 17:50 ABG O2 Saturation 95.8 01/09/25 17:50 ABG Base Excess -0.7 mmol/L (-2.0-2.0) 01/09/25 17:50 Jose Test Pos 01/09/25 17:50 A-a O2 Gradient 3.0 mmHg (5-10) L 01/09/25 17:50 Hematocrit 39.6 % (42-52) L 01/09/25 17:50 Hgb O2 Saturation 87.9 % (95-100) L 01/09/25 17:50 Carboxyhemoglobin 5.8 %THgb (0.4-20.1) 01/09/25 17:50 Methemoglobin 2.5 % (0.4-1.5) H 01/09/25 17:50 Total Hemoglobin 12.9 g/dL (14-18) L 01/09/25 17:50 Sodium 139.0 mmol/L (131-143) 01/09/25 17:50 Potassium 4.2 mmol/L (3.5-5.0) 01/09/25 17:50 Glucose 163.0 mg/dL (70-115) H 01/09/25 17:50 Ionized Calcium 1.2 mmol/L (1.1-1.4) 01/09/25 17:50 O2 Delivery Device Room air 01/09/25 17:50 FiO2 21.0 % 01/09/25 17:50 Perfume And Toilet Water Maker ID Monro 01/09/25 17:50 Sodium 139 mmol/L (136-145) 01/09/25 17:57 Potassium 4.3 mmol/L (3.5-5.1) 01/09/25 17:57 Chloride 103 mmol/L (98-107) 01/09/25 17:57 Carbon Dioxide 23 mmol/L (22-29) 01/09/25 17:57 Anion Gap 17.3 (5-19) 01/09/25 17:57 BUN 16 mg/dL (8-23) 01/09/25 17:57 Creatinine 0.9 mg/dL (0.7-1.2) 01/09/25 17:57 GFR Calculation 84.7 mL/min (90-130) L 01/09/25 17:57 Glucose 162 mg/dL (65-115) H 01/09/25 17:57 Calculated Osmolality 293 mOsm/kg (285-295) 01/09/25 17:57 Lactic Acid 2.3 mmol/L (0.5-2.2) H 01/09/25 17:57 Calcium 9.1 mg/dL (8.5-10.5) 01/09/25 17:57 Total Bilirubin 0.2 mg/dL (0.15-1.2) 01/09/25 17:57 AST 13 U/L (0-40) 01/09/25 17:57 ALT 21 U/L (0-41) 01/09/25 17:57 Alkaline Phosphatase 68 U/L (40-130) 01/09/25 17:57 Total Protein 7.4 g/dL (6.6-8.7) 01/09/25 17:57 Albumin 3.8 g/dL (3.5-5.2) 01/09/25 17:57 Globulin 3.6 g/dL (1.3-4.6) 01/09/25 17:57 Urine Color Dark yellow (Yellow) A 01/09/25 19:11 Urine Appearance Turbid (CLEAR) A 01/09/25 19:11 Urine pH 8.5 (5-7) A 01/09/25 19:11 Ur Specific [place] 1.031 (1.005-1.030) H 01/09/25 19:11 Urine Protein 3+ (Negative) A 01/09/25 19:11 Urine Glucose (UA) Negative (Normal) 01/09/25 19:11 Urine Ketones Trace (Negative) 01/09/25 19:11 Urine Blood 2+ (Negative) A 01/09/25 19:11 Urine Nitrate Positive (Negative) A 01/09/25 19:11 Urine Bilirubin Negative (Negative) 01/09/25 19:11 Urine Urobilinogen 1.0 mg/dL (Negative) 01/09/25 19:11 Ur Leukocyte Esterase 3+ (Negative) A 01/09/25 19:11 Urine RBC 10-15 /hpf (0-2) H 01/09/25 19:11 Urine WBC 80-100 /hpf (0-5) H 01/09/25 19:11 Ur Squamous Epith Cells 0-4 /hpf (0-5) H 01/09/25 19:11 Triple Phos Crystals 5-10 /hpf H 01/09/25 19:11 Amorphous Sediment 1+ /hpf 01/09/25 19:11 Urine Bacteria 3+ /hpf (NONE) H 01/09/25 19:11 Hyaline Casts 0-4 /lpf H 01/09/25 19:11 Urine Mucus None /hpf 01/09/25 19:11 Urine Opiates Screen Negative ng/mL (Negative) 01/09/25 19:11 Ur Barbiturates Screen Negative ng/mL (Negative) 01/09/25 19:11 Ur Phencyclidine Scrn Negative ng/mL (Negative) 01/09/25 19:11 Ur Amphetamines Screen Negative ng/mL (Negative) 01/09/25 19:11 U Benzodiazepines Scrn Negative ng/mL (Negative) 01/09/25 19:11 Urine Cocaine Screen Negative ng/mL (Negative) 01/09/25 19:11 U Marijuana (THC) Screen Negative ng/mL (Negative) 01/09/25 19:11 Serum Ketones Negative (Negative) 01/09/25 17:57 All radiology interpretation(s) finalized by discharge EKG Data EKG 1: Interpretation: Time?1905?normal sinus rhythm, rate of 73, no ST segment elevation or depression, no T wave inversions, intervals within normal limits. QTc = 421 Discharge Plan Discharge Patient Disposition: Placed in Observation Admit Provider: Chuy Gallo Clinical Impression: Catheter-associated urinary tract infection, Hallucinations, Somnolence Sign Out Sign Out Data: Patient Sign Out occurred on 01/09/25 at 18:33. Patient's care was discussed, and care was transferred from Mack Benitez DO to Jonathan Gan MD. Post-Handoff Eval: Clinical picture most consistent with catheter associated UTI causing hallucinations and somnolence. Given IV fluids and ceftriaxone and admitted to the hospitalist service in stable condition Coding Level of Care Code ED Drill Presser for Radha Roque
[2025-01-09 18:01] LABS: ABG PCO2 38.1 mmHg (35-45); ABG PH Result 7.41 (7.35-7.45); Arterial Blood Gas Hematocrit 39.6 % (42-52); Base Excess ABG -0.7 mmol/L (-2.0-2.0); Blood Gas Allen Test Pos; Blood Gas Sample Type Arterial; Carboxyhemoglobin 5.8 %THgb (0.4-20.1); HCO3 ABG 23.9 mmol/L (22-26); HGB O2 Sat 87.9 % (95-100); Ionized Calcium Level - ABG 1.2 mmol/L (1.1-1.4); Methemoglobin 2.5 % (0.4-1.5); Oxygen Saturation ABG 95.8; PO2 ABG 79.3 mmHg (80.0-100.0); Potassium Level - ABG 4.2 mmol/L (3.5-5.0); Total Hemoglobin 12.9 g/dL (14-18)
[2025-01-09 18:02] LABS: Blood Gas Operator Identificat MONRO; Blood Gas Sample Site Radial, right; Oxygen Device ROOM AIR; PO2 FiO2 Ratio Arterial Blood 377
[2025-01-09 18:04] LABS: Basophils # 0.1 10^3/uL (0.0-0.1); Basophils % 0.5 %; Eosinophils % 10.1 %; Lymphocytes # 2.1 10^3/uL (0.8-4.8); Lymphocytes % 21.7 %; Mean Corpuscular HGB Conc 29.5 g/dL (30-55); Mean Corpuscular Volume 81.3 fl (82-101); Mean Platelet Volume 10.3 fL (7.4-10.4); Monocytes # 0.5 10^3/uL (0.2-0.9); Monocytes % 5.2 %; Neutrophils # 5.94 10^3/uL (1.8-7.7); Neutrophils % 61.9 %; Nucleated Red Blood Cells % 0 %; Platelet Count 279 10^3/cmm (157-399); Red Blood Count 5.41 10^6/uL (3.85-5.65); Red Cell Distribution Width 19.3 % (12.1-15.1); White Blood Count 9.61 10^3/uL (3.29-11.43)
--- OUTSIDE RECORDS SUMMARY | 2025-01-09 18:04 | XMS_ITS | Encounter Summary ---
Author Organization [facility] Address [address] [place] [address] Care Team Providers Care Automotive Parts Counter Person Name Role Phone Jonathan Pham MD Primary Care Provider [phone] Encounter Details Date Type Department Care Team (Late st Contact Info) Description 05/09/2007 Outpatient Historical [facility] [address] [place] [address] Social History Tobacco Use Types Packs/Day Years Used Date Smoking Tobacco: Never Assessed Sex and Gender Information Value Date Recorded Sex Assigned at Not on file 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 Gender Identity Not on file Sexual Orientation Not on file documented as of this encounter Plan of Treatment Not on file documented as of this encounter Visit Diagnoses Not on filedocumented in this encounter Additional Health Concerns Infection Onset Date Last Indicated Resolved Time R/O COVID-19 08/19/2020 08/19/2020 08/20/2020 1:44 PM MEDICAL INSURANCE BILLER documented as of this encounter Care Teams Automotive Parts Counter Person Relationship Specialty Start Date End Date Jonathan Pham MD [address] [id number] PCP - General Family Practice 03/01/18 documented as of this encounter
--- OUTSIDE RECORDS SUMMARY | 2025-01-09 18:04 | XMS_ITS | Encounter Summary ---
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 Gender Identity Not on file Sexual Orientation Not on file documented as of this encounter Plan of Treatment Not on file documented as of this encounter Visit Diagnoses Not on filedocumented in this encounter Additional Health Concerns Infection Onset Date Last Indicated Resolved Time R/O COVID-19 08/19/2020 08/19/2020 08/20/2020 1:44 PM HI LIFT OPERATOR documented as of this encounter Care Teams Outdoor Recreation Specialist Relationship Specialty Start Date End Date Jonathan Pham MD [address] [facility] [address] [place] [address] PCP - General Family Practice 03/01/18 documented as of this encounter
--- OUTSIDE RECORDS SUMMARY | 2025-01-09 18:04 | XMS_ITS | Encounter Summary ---
Author Organization [facility] Address [address] [facility] 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 Gender Identity Not on file Sexual Orientation Not on file documented as of this encounter Plan of Treatment Not on file documented as of this encounter Procedures Procedure Name Priority Date/Time Associated Diagnosis Comments C-REACTIVE PROTEIN Routine 05/25/2007 12 :11 PM WHEEL ALIGNER documented in this encounter Results * (ABNORMAL) C-REACTIVE PROTEIN (05/25/2007 12:11 PM WHEEL ALIGNER) CRP 1.19(H) 0.00 - 1.00 mg/dL INTERFACE SYSTEM 05/25/2007 12:1 1 PM WHEEL ALIGNER us Donnell Morales MD CHEMISTRY ORDERABLES Edite d INTERFACE SYSTEM Refer to clinic/hospital department documented in this encounter Visit Diagnoses Not on filedocumented in this encounter Additional Health Concerns Infection Onset Date Last Indicated Resolved Time R/O COVID-19 08/19/2020 08/19/2020 08/20/2020 1:44 PM WHEEL ALIGNER documented as of this encounter Care Teams Newspaper Manager Relationship Specialty Start Date End Date Jonathan Pham MD [address] [address] PCP - General Family Practice 03/01/18 documented as of this encounter
--- OUTSIDE RECORDS SUMMARY | 2025-01-09 18:04 | XMS_ITS | Encounter Summary ---
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); Arthrodesis Status; Encounter for Long-Term (Current) Use of Anticoagulants Social History Tobacco Use Types Packs/Day Years Used Date Smoking Tobacco: Never Assessed Sex and Gender Information Value Date Recorded Sex Assigned at Not on file Legal 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 The hardware is unremarkable in appearance. Exam appears unchanged compared with May 2000. The old compression fractures are noted. Impression: Apparently stable exam. Dictated By: Bhanu Zepeda M.D. Electronically Signed By: Bhanu Zepeda M.D. Date Signed: 11/24/07 Procedure Note Bhanu Zepeda - 11/24/2007 Fusion changes with posterior rods are present extending from [id number] through T8. The hardware is unremarkable in appearance. Exam appears unchanged compared with May2000. The old compression fractures are noted. Impression: Apparently stable exam. Dictated By: Bhanu Zepeda M.D. Electronically Signed By: Bhanu Zpeeda M.D. Date Signed: 11/24/07 [facility] ORDERABLES Final Result documented in this encounter Visit Diagnoses Diagnosis Embolism and thrombosis of arteries of lower extremity (CMS/HCC) Embolism and thrombosis of arteries of lower extremity Arthrodesis status [facility] (current) use of anticoagulants Long-term (current) use of anticoagulants documented in this encounter Additional Health Concerns Infection Onset Date Last Indicated Resolved Time R/O COVID-19 08/19/2020 08/19/2020 08/20/2020 1:44 PM MONITOR CAR OPERATOR documented as of this encounter Care Teams Appraiser Art Relationship Specialty Start Date End Date Jonathan Pham MD [address] [facility] [address] [place] [phone] PCP - General Family Practice 03/01/18 documented as of this encounter
--- OUTSIDE RECORDS SUMMARY | 2025-01-09 18:04 | XMS_ITS | Encounter Summary ---
Author Organization [facility] Address [address] [place] [address] Care Team Providers Care Production Support Engineer Name Role Phone Jonathan Pham MD Primary Care Provider +1 [phone] Encounter Details Date Type Department Care Team (Late st Contact Info) Description 06/15/2007 Outpatient Historical [facility] [address] 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
--- OUTSIDE RECORDS SUMMARY | 2025-01-09 18:04 | XMS_ITS | Encounter Summary ---
Author Organization [facility] Address [address] [place] [address] Care Team Providers Care Software Applications Specialist Name Role Phone Jonathan Pham MD Primary Care Provider +1 [phone] Encounter Details Date Type Department Care Team (Latest Contact Info) Description 04/21/[address] [facility] [address] [place] [address] Awilda Ulloa MD [address] [place] [address] Other Postoperative Infection (Primary Dx) Social History Tobacco Use Types Packs/Day Years Used Date Smoking Tobacco: Never Assessed Sex and Gender Information Value Date Recorded Sex Assigned at Not on file Legal Sex Male 6:19 AM MEAT BONER Gender Identity Not on file Sexual Orientation Not on file documented as of this encounter Plan of Treatment Not on file documented as of this encounter Visit Diagnoses Diagnosis Other postoperative infection- Primary documented in this encounter Additional Health Concerns Infection Onset Date Last Indicated Resolved Time R/O COVID-19 08/19/2020 08/19/2020 08/20/2020 1:44 PM MEAT BONER documented as of this encounter Care Teams Software Applications Specialist Relationship Specialty Start Date End Date Jonathan Pham MD [address] [phone] PCP - General Family Practice 03/01/18 documented as of this encounter
--- OUTSIDE RECORDS SUMMARY | 2025-01-09 18:04 | XMS_ITS | Encounter Summary ---
Author Organization [facility] Address [address] [place] [address] Care Team Providers Care Personal Caregiver Name Role Phone Jonathan Pham MD Primary Care Provider +1 [phone] Encounter Details Date Type Department Care Team (Late st Contact Info) Description 09/06/2007 Outpatient Historical [facility] Infectious Disease 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 Patient in a wheelchair. Pulse: 74. BP: 104/80. Temperature 97. Respirations 20. HISTORY OF PRESENT ILLNESS: Mr. 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 He was last seen on July and since that time he hascontinued to do well. 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 His father has similar issues with chronic tinnitus from him being around loud machinery for years. Mr. Mullen has not had any fever or chills. He has not had any back wound drainage. He has tolerated the minocycline without difficulty at 100 mg daily. PHYSICAL EXAMINATION: HEENT: On exam, his pupils are equal. Oropharynx clear. LUNGS: Clear. HEART: Normal rate, regular rhythm. ABDOMEN: Soft and nontender. EXTREMITIES: His lower extremities revealed an area of skin breakdown of the left medial heel whichappears to be healing well without evidence of active infection. He has debrided this on his own and it appears to be healing well. The right heel plantar surface reveals a bruised area in a circulardistribution without surrounding erythema and without any induration. There is a central area whichis softer than the peripheral area. 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 Will continue suppressive minocycline at this time due to his retained hardware. Will check a CBC and CMP to monitor for potential toxicities, as well as a C-reactive protein. He would like to have this drawn by the hospital at home and a prescription was given to him to have the lab work drawn and faxed to my office. Thearea of the right heel is most likely secondary to pressure or trauma to the area. It appears to behealing at this point. It does not appear to be actively infected. He will continue to monitor thisarea and let me know if there are any changes. He will try to keep pressure off of this area to help promote healing. I am encouraged by his continued well being. Will schedule return visit in our office in approximately 2 months. I would be happy to see him in the meantime and as needed. Donnell Morales M.D. Infectious Disease Electronically Signed by Donnell Morales M.D. 09/23/2007 10:32 , A, 635 Document #: [id number] cc: Marcel Madrid M.D. VERY DRIVER ASSISTANT documented in this encounter Plan of Treatment Not on file documented as of this encounter Visit Diagnoses Not on filedocumented in this encounter Additional Health Concerns Infection Onset Date Last Indicated Resolved Time R/O COVID-19 08/19/2020 08/19/2020 08/20/2020 1:44 PM DELIVERY DRIVER ASSISTANT documented as of this encounter Care Teams Personal Caregiver Relationship Specialty Start Date End Date Jonathan Pham MD [address] [phone] PCP - General Family Practice 03/01/18 documented as of this encounter
--- OUTSIDE RECORDS SUMMARY | 2025-01-09 18:04 | XMS_ITS | Encounter Summary ---
Author Organization [facility] Address [address] Chavez: Epic [place] [address] Care Team Providers Care Loan Consultant Name Role Phone Jonathan Pham MD Primary Care Provider +1 [phone] Encounter Details Date Type Department Care Team (Late st Contact Info) Description 04/18/2007 Outpatient Historical Damari Caballero, Tobi De La Fuente MD [address] [place] [address] Social History Tobacco Use Types Packs/Day Years Used Date Smoking Tobacco: Never Assessed Sex and Gender Information Value Date Recorded Sex Assigned at Not on file Legal Sex Male 6:19 AM ROTARY DRILLER Gender Identity Not on file Sexual Orientation Not on file documented as of this encounter Plan of Treatment Not on file documented as of this encounter Procedures Procedure Name Priority Date/Time Associated Diagnosis Comments C-REACTIVE PROTEIN Routine 04/18/2007 10 :30 AM CDT documented in this encounter Results * (ABNORMAL) C-REACTIVE PROTEIN (04/18/2007 10:30 AM CDT) CRP 1.31(H) 0.00 - 1.00 mg/dL INTERFACE SYSTEM 04/18/2007 10:3 0 AM CDT us Tobi Wetzel Jr., MD CHEMISTRY ORDERABLES Cesar segun INTERFACE SYSTEM Refer to clinic/hospital department documented in this encounter Visit Diagnoses Not on filedocumented in this encounter Additional Health Concerns Infection Onset Date Last Indicated Resolved Time R/O COVID-19 08/19/2020 08/19/2020 08/20/2020 1:44 PM ROTARY DRILLER documented as of this encounter Care Teams Loan Consultant Relationship Specialty Start Date End Date Jonathan Pham MD [address] [phone] PCP - General Family Practice 03/01/18 documented as of this encounter
--- OUTSIDE RECORDS SUMMARY | 2025-01-09 18:04 | XMS_ITS | Encounter Summary ---
Author Organization [facility] Address [address] [place] [address] Care Team Providers Care Methods Analyst Data Processing Name Role Phone Jonathan Pham MD Primary Care Provider +1 -[phone] Encounter Details Date Type Department Care Team (Latest Contact Info) Description 04/26/2007 Outpatient Historical [facility] Infectious Disease 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 Gender Identity Not on file Sexual Orientation Not on file documented as of this encounter Plan of Treatment Not on file documented as of this encounter Visit Diagnoses Diagnosis Infection and inflammatory reaction due to other internal orthopedic device, implant, and graft- Primary Encounter for long-term (current) use of antibiotics documented in this encounter Additional Health Concerns Infection Onset Date Last Indicated Resolved Time R/O COVID-19 08/19/2020 08/19/2020 08/20/2020 1:44 PM FINE GRADE BULLDOZER OPERATOR documented as of this encounter Care Teams Methods Analyst Data Processing Relationship Specialty Start Date End Date Jonathan Pham MD [address] [phone] PCP - General Family Practice 03/01/18 documented as of this encounter
--- OUTSIDE RECORDS SUMMARY | 2025-01-09 18:04 | XMS_ITS | Encounter Summary ---
Author Organization [facility] Address [address] Chavez: Epic [place] [address] Care Team Providers Care Hydrometer Calibrator Name Role Phone Jonathan Pham MD Primary Care Provider +1 [phone] Encounter Details Date Type Department Care Team (Late st Contact Info) Description 10/06/2007 Outpatient Historical Donnell Morales MD [address] [address] Social History Tobacco Use Types Packs/Day Years Used Date Smoking Tobacco: Never Assessed Sex and Gender Information Value Date Recorded Sex Assigned at Not on file Legal Sex Male 6:19 AM DIRECTOR CRITICAL CARE Gender Identity Not on file Sexual Orientation Not on file documented as of this encounter Plan of Treatment Not on file documented as of this encounter Procedures Procedure Name Priority Date/Time Associated Diagnosis Comments C-REACTIVE PROTEIN Routine 10/06/2007 12 :27 PM CDT documented in this encounter Results * (ABNORMAL) C-REACTIVE PROTEIN (10/06/2007 12:27 PM CDT) CRP 2.71(H) 0.00 - 1.00 mg/dL [facility] Blood specimen (specimen) 10/06/2007 12:27 PM CDT 10/06/2007 9:58 PM CDT Donnell Morales MD CHEMISTRY ORDERABLES Final Result [facility] [address] [place] [address] documented in this encounter Visit Diagnoses Not on filedocumented in this encounter Additional Health Concerns Infection Onset Date Last Indicated Resolved Time R/O COVID-19 08/19/2020 08/19/2020 08/20/2020 1:44 PM DIRECTOR CRITICAL CARE documented as of this encounter Care Teams Hydrometer Calibrator Relationship Specialty Start Date End Date Jonathan Pham MD [address] [facility] [address] [place] [phone] PCP - General Family Practice 03/01/18 documented as of this encounter
--- OUTSIDE RECORDS SUMMARY | 2025-01-09 18:04 | XMS_ITS | Encounter Summary ---
Author Organization [facility] Address [address] [facility] [address] [address] Chavez: [place] [address] Care Team Providers Care Operational Communication Chief Name Role Phone Jonathan Pham MD Primary Care Provider +1 [phone] Encounter Details Date Type Department Care Team (Late st Contact Info) Description 09/07/2007 Outpatient Historical Donnell Morales MD [id number] [place] [address] Social History Tobacco Use Types Packs/Day Years Used Date Smoking Tobacco: Never Assessed Sex and Gender Information Value Date Recorded Sex Assigned at Not on file Legal Sex Male 6:19 AM CASINO CAGE MANAGER Gender Identity Not on file Sexual Orientation Not on file documented as of this encounter Plan of Treatment Not on file documented as of this encounter Procedures Procedure Name Priority Date/Time Associated Diagnosis Comments C-REACTIVE PROTEIN Routine 09/07/2007 1: 41 PM CASINO CAGE MANAGER documented in this encounter Results * (ABNORMAL) C-REACTIVE PROTEIN (09/07/2007 1:41 PM CASINO CAGE MANAGER) CRP 5.04(H) 0.00 - 1.00 mg/dL [facility] Blood specimen (specimen) 09/07/2007 1:41 PM CASINO CAGE MANAGER 09/07/2007 9:53 PM CASINO CAGE MANAGER us Donnell Morales MD CHEMISTRY ORDERABLES Final Result [facility] [address] [place] [address] documented in this encounter Visit Diagnoses Not on filedocumented in this encounter Additional Health Concerns Infection Onset Date Last Indicated Resolved Time R/O COVID-19 08/19/2020 08/19/2020 08/20/2020 1:44 PM CASINO CAGE MANAGER documented as of this encounter Care Teams Operational Communication Chief Relationship Specialty Start Date End Date Jonathan Pham MD [address] [facility] [address] [place] [phone] PCP - General Family Practice 03/01/18 documented as of this encounter
--- OUTSIDE RECORDS SUMMARY | 2025-01-09 18:04 | XMS_ITS | Encounter Summary ---
Author Organization [facility] Address [address] 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 DEVELOPER Gender Identity Not on file Sexual Orientation Not on file documented as of this encounter Plan of Treatment Not on file documented as of this encounter Procedures Procedure Name Priority Date/Time Associated Diagnosis Comments C-REACTIVE PROTEIN Routine 04/11/2007 2: 05 PM CDT documented in this encounter Results * (ABNORMAL) C-REACTIVE PROTEIN (04/11/2007 2:05 PM CDT) CRP 3.28(H) 0.00 - 1.00 mg/dL INTERFACE SYSTEM 04/11/2007 2:05 PM CDT us Tobi Wetzel Jr., MD CHEMISTRY ORDERABLES Cesar segun INTERFACE SYSTEM Refer to clinic/hospital department documented in this encounter Visit Diagnoses Not on filedocumented in this encounter Additional Health Concerns Infection Onset Date Last Indicated Resolved Time R/O COVID-19 08/19/2020 08/19/2020 08/20/2020 1:44 PM JAVA SPRING DEVELOPER documented as of this encounter Care Teams Hearing Aid Dispenser Relationship Specialty Start Date End Date Jonathan Pham MD [address] [phone] PCP - General Family Practice 03/01/18 documented as of this encounter
--- OUTSIDE RECORDS SUMMARY | 2025-01-09 18:04 | XMS_ITS | Encounter Summary ---
Author Organization [facility] Address [address] Chavez: Epic [place] [address] Care Team Providers Care Sharepoint Solutions Developer Name Role Phone Jonathan Pham MD Primary Care Provider +1 [phone] Encounter Details Date Type Department Care Team (Late st Contact Info) Description 05/17/2007 Outpatient Historical Damari Caballero, Tobi De La Fuente MD [address] [place] [address] Social History Tobacco Use Types Packs/Day Years Used Date Smoking Tobacco: Never Assessed Sex and Gender Information Value Date Recorded Sex Assigned at Not on file Legal Sex Male 6:19 AM MUSTANGER Gender Identity Not on file Sexual Orientation Not on file documented as of this encounter Plan of Treatment Not on file documented as of this encounter Procedures Procedure Name Priority Date/Time Associated Diagnosis Comments C-REACTIVE PROTEIN Routine 05/17/2007 8: 55 AM CDT documented in this encounter Results * (ABNORMAL) C-REACTIVE PROTEIN (05/17/2007 8:55 AM CDT) CRP 3.59(H) 0.00 - 1.00 mg/dL INTERFACE SYSTEM 05/17/2007 8:55 AM CDT us Tobi Wetzel Jr., MD CHEMISTRY ORDERABLES Cesar segun INTERFACE SYSTEM Refer to clinic/hospital department documented in this encounter Visit Diagnoses Not on filedocumented in this encounter Additional Health Concerns Infection Onset Date Last Indicated Resolved Time R/O COVID-19 08/19/2020 08/19/2020 08/20/2020 1:44 PM MUSTANGER documented as of this encounter Care Teams Sharepoint Solutions Developer Relationship Specialty Start Date End Date Jonathan Pham MD [address] [phone] PCP - General Family Practice 03/01/18 documented as of this encounter
--- OUTSIDE RECORDS SUMMARY | 2025-01-09 18:04 | XMS_ITS | Encounter Summary ---
Author Organization [facility] Address [address] [place] [address] Care Team Providers Care Vp Purchasing Name Role Phone Jonathan Pham MD Primary Care Provider +1 -[phone] Encounter Details Date Type Department Care Team (Latest Contact Info) Description 04/21/2007 Outpatient Historical [facility] [address] [place] [address] Awilda Ulloa MD [address] [address] Aftercare Trauma Surgery (Primary Dx) Social History Tobacco Use Types Packs/Day Years Used Date Smoking Tobacco: Never Assessed Sex and Gender Information Value Date Recorded Sex Assigned at Not on file Legal Sex Male 6:19 AM TAPER/FINISHER Gender Identity Not on file Sexual Orientation Not on file documented as of this encounter Plan of Treatment Not on file documented as of this encounter Visit Diagnoses Diagnosis Aftercare trauma surgery- Primary Aftercare following surgery for injury and trauma documented in this encounter Additional Health Concerns Infection Onset Date Last Indicated Resolved Time R/O COVID-19 08/19/2020 08/19/2020 08/20/2020 1:44 PM TAPER/FINISHER documented as of this encounter Care Teams Vp Purchasing Relationship Specialty Start Date End Date Jonathan Pham MD [address] [phone] PCP - General Family Practice 03/01/18 documented as of this encounter
--- OUTSIDE RECORDS SUMMARY | 2025-01-09 18:04 | XMS_ITS | Encounter Summary ---
Author Organization [facility] Address [address] [place] [address] Care Team Providers Care Community Facilitator Name Role Phone Jonathan Pham MD Primary Care Provider +1 -[phone] Encounter Details Date Type Department Care Team (Late st Contact Info) Description 07/20/2007 Outpatient Historical [facility] Infectious Disease [address] [place] [address] Donnell Morales MD [address] [place] [address] Social History Tobacco Use Types Packs/Day Years Used Date Smoking Tobacco: Never Assessed Sex and Gender Information Value Date Recorded Sex Assigned at Not on file Legal Sex Male 6:19 AM REINSURANCE CLAIMS ANALYST Gender Identity Not on file Sexual Orientation Not on file documented as of this encounter Plan of Treatment Not on file documented as of this encounter Visit Diagnoses Not on filedocumented in this encounter Additional Health Concerns Infection Onset Date Last Indicated Resolved Time R/O COVID-19 08/19/2020 08/19/2020 08/20/2020 1:44 PM REINSURANCE CLAIMS ANALYST documented as of this encounter Care Teams Community Facilitator Relationship Specialty Start Date End Date Jonathan Pham MD [address] [phone] PCP - General Family Practice 03/01/18 documented as of this encounter
--- OUTSIDE RECORDS SUMMARY | 2025-01-09 18:04 | XMS_ITS | Encounter Summary ---
Author Organization [facility] Address [address] [place] [address] Care Team Providers Care Lumber Driver Name Role Phone Jonathan Pham MD Primary Care Provider [phone] [phone] Encounter Details Date Type Department Care Team (Late st Contact Info) Description 09/06/2007 Outpatient [facility] [address] [place] [address] Marcel Madrid MD [address] [place] [phone] Social History Tobacco Use Types Packs/Day Years Used Date Smoking Tobacco: Never Assessed Sex and Gender Information Value Date Recorded Sex Assigned at Not on file Legal Sex Male 6: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 NATURAL 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 TECHNICIAN Gender Identity Not on file Sexual Orientation Not on file documented as of this encounter Plan of Treatment Not on file documented as of this encounter Visit Diagnoses Not on filedocumented in this encounter Additional Health Concerns Infection Onset Date Last Indicated Resolved Time R/O COVID-19 08/19/2020 08/19/2020 08/20/2020 1:44 PM NATURAL GAS TECHNICIAN documented as of this encounter Care Teams Lumber Driver Relationship Specialty Start Date End Date Jonathan Pham MD [address] [facility] [address] [place] [phone] PCP - General Family Practice 03/01/18 documented as of this encounter
--- OUTSIDE RECORDS SUMMARY | 2025-01-09 18:04 | XMS_ITS | Encounter Summary ---
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 Gender Identity Not on file Sexual Orientation Not on file documented as of this encounter Plan of Treatment Not on file documented as of this encounter Visit Diagnoses Not on filedocumented in this encounter Additional Health Concerns Infection Onset Date Last Indicated Resolved Time R/O COVID-19 08/19/2020 08/19/2020 08/20/2020 1:44 PM DYE REEL OPERATOR documented as of this encounter Care Teams Terrapin Fisher Relationship Specialty Start Date End Date Jonathan Pham MD [address] [facility] [address] [place] [address] PCP - General Family Practice 03/01/18 documented as of this encounter
--- OUTSIDE RECORDS SUMMARY | 2025-01-09 18:04 | XMS_ITS | Encounter Summary ---
Author Organization [facility] Address [address] [place] [address] Care Team Providers Care Registration Representative Name Role Phone Jonathan Pham MD Primary Care Provider [phone] Encounter Details Date Type Department Care Team (Latest Contact Info) Description 05/09/2007 Outpatient Historical [facility] [address] [place] [address] Noelle Wise PA [address] [place] [address] Other Orthopedic Aftercare (Primary Dx) Social History Tobacco Use Types Packs/Day Years Used Date Smoking Tobacco: Never Assessed Sex and Gender Information Value Date Recorded Sex Assigned at Not on file Legal 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 Gender Identity Not on file Sexual Orientation Not on file documented as of this encounter Plan of Treatment Not on file documented as of this encounter Visit Diagnoses Diagnosis Other orthopedic aftercare(V54.89)- Primary Other orthopedic aftercare documented in this encounter Additional Health Concerns Infection Onset Date Last Indicated Resolved Time R/O COVID-19 08/19/2020 08/19/2020 08/20/2020 1:44 PM NECKTIE MAKER documented as of this encounter Care Teams Registration Representative Relationship Specialty Start Date End Date Jonathan Pham MD [address] [facility] [address] [place] [phone] PCP - General Family Practice 8/14/18 documented as of this encounter
--- OUTSIDE RECORDS SUMMARY | 2025-01-09 18:04 | XMS_ITS | Encounter Summary ---
Author Organization [facility] Address [address] 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 Gender Identity Not on file Sexual Orientation Not on file documented as of this encounter Plan of Treatment Not on file documented as of this encounter Procedures Procedure Name Priority Date/Time Associated Diagnosis Comments C-REACTIVE PROTEIN Routine 05/02/2007 9: 50 AM CDT documented in this encounter Results * (ABNORMAL) C-REACTIVE PROTEIN (05/02/2007 9:50 AM CDT) CRP 5.46(H) 0.00 - 1.00 mg/dL INTERFACE SYSTEM 05/02/2007 9:50 AM CDT us Tobi Wetzel Jr., MD CHEMISTRY ORDERABLES Cesar segun INTERFACE SYSTEM Refer to clinic/hospital department documented in this encounter Visit Diagnoses Not on filedocumented in this encounter Additional Health Concerns Infection Onset Date Last Indicated Resolved Time R/O COVID-19 08/19/2020 08/19/2020 08/20/2020 1:44 PM HEALTH CARE SANITARY TECHNICIAN documented as of this encounter Care Teams Station Detective Relationship Specialty Start Date End Date Jonathan Pham MD [address] [phone] PCP - General Family Practice 03/01/18 documented as of this encounter
--- OUTSIDE RECORDS SUMMARY | 2025-01-09 18:04 | XMS_ITS | Encounter Summary ---
Author Organization [facility] Address [address] [place] [address] Care Team Providers Care Drum Handler Name Role Phone Jonathan Pham MD Primary Care Provider [phone] [phone] Encounter Details Date Type Department Care Team (Latest Contact Info) Description 06/13/[address] [facility] Infectious Disease 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
--- OUTSIDE RECORDS SUMMARY | 2025-01-09 18:04 | XMS_ITS | Encounter Summary ---
Author Organization [facility] Address [address] 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 Gender Identity Not on file Sexual Orientation Not on file documented as of this encounter Plan of Treatment Not on file documented as of this encounter Procedures Procedure Name Priority Date/Time Associated Diagnosis Comments C-REACTIVE PROTEIN Routine 04/25/2007 10 :25 AM CDT documented in this encounter Results * (ABNORMAL) C-REACTIVE PROTEIN (04/25/2007 10:25 AM CDT) CRP 1.87(H) 0.00 - 1.00 mg/dL INTERFACE SYSTEM 04/25/2007 10:2 5 AM CDT us Tobi Wetzel Jr., MD CHEMISTRY ORDERABLES Cesar segun INTERFACE SYSTEM Refer to clinic/hospital department documented in this encounter Visit Diagnoses Not on filedocumented in this encounter Additional Health Concerns Infection Onset Date Last Indicated Resolved Time R/O COVID-19 08/19/2020 08/19/2020 08/20/2020 1:44 PM RIVER PILOT documented as of this encounter Care Teams Corporate Strategist Relationship Specialty Start Date End Date Jonathan Pham MD [address] [phone] PCP - General Family Practice 03/01/18 documented as of this encounter
--- OUTSIDE RECORDS SUMMARY | 2025-01-09 18:04 | XMS_ITS | Encounter Summary ---
Author Organization [facility] Address [address] 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 Gender Identity Not on file Sexual Orientation Not on file documented as of this encounter Plan of Treatment Not on file documented as of this encounter Procedures Procedure Name Priority Date/Time Associated Diagnosis Comments C-REACTIVE PROTEIN Routine 05/11/2007 10 :25 AM CDT documented in this encounter Results * (ABNORMAL) C-REACTIVE PROTEIN (05/11/2007 10:25 AM CDT) CRP 8.67(H) 0.00 - 1.00 mg/dL INTERFACE SYSTEM 05/11/2007 10:2 5 AM CDT us Tobi Wetzel Jr., MD CHEMISTRY ORDERABLES Cesar segun INTERFACE SYSTEM Refer to clinic/hospital department documented in this encounter Visit Diagnoses Not on filedocumented in this encounter Additional Health Concerns Infection Onset Date Last Indicated Resolved Time R/O COVID-19 08/19/2020 08/19/2020 08/20/2020 1:44 PM MACHINE SHOP LEAD MAN documented as of this encounter Care Teams Cylinder Devalver Relationship Specialty Start Date End Date Jonathan Pham MD [address] [phone] PCP - General Family Practice 03/01/18 documented as of this encounter
--- OUTSIDE RECORDS SUMMARY | 2025-01-09 18:04 | XMS_ITS | Encounter Summary ---
Author Organization [facility] Address [address] [place] [address] Care Team Providers Care Application Security Consultant Name Role Phone Jonathan Pham MD Primary Care Provider [phone] [phone] Encounter Details Date Type Department Care Team (Late st Contact Info) Description 06/30/2007 Outpatient [facility] [address] [place] [address] Marcel Madrid MD [address] [place] [phone] Social History Tobacco Use Types Packs/Day Years Used Date Smoking Tobacco: Never Assessed Sex and Gender Information Value Date Recorded Sex Assigned at Not on file Legal Sex Male 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 PACKER 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 Gender Identity Not on file Sexual Orientation Not on file documented as of this encounter Plan of Treatment Not on file documented as of this encounter Visit Diagnoses Not on filedocumented in this encounter Additional Health Concerns Infection Onset Date Last Indicated Resolved Time R/O COVID-19 08/19/2020 08/19/2020 08/20/2020 1:44 PM LUTE PACKER OR APPLIER documented as of this encounter Care Teams Application Security Consultant Relationship Specialty Start Date End Date Jonathan Pham MD [address] [facility] [address] [place] [phone] PCP - General Family Practice 03/01/18 documented as of this encounter
--- OUTSIDE RECORDS SUMMARY | 2025-01-09 18:04 | XMS_ITS | Encounter Summary ---
Author Organization [facility] Address [address] [place] [address] Care Team Providers Care Practice Management Consultant Name Role Phone Jonathan Pham MD Primary Care Provider [phone] Encounter Details Date Type Department Care Team (Late st Contact Info) Description 06/25/2007 Outpatient Historical [facility] [address] [facility] [address] [place] [address] Noelle Wise PA [address] [facility] [address] [place] [address] Social History Tobacco Use Types Packs/Day Years Used Date Smoking Tobacco: Never Assessed Sex and Gender Information Value Date Recorded Sex Assigned at Not on file 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
--- OUTSIDE RECORDS SUMMARY | 2025-01-09 18:04 | XMS_ITS | Encounter Summary ---
Author Organization [facility] Address [address] [place] [address] Care Team Providers Care Drywall Foreman Name Role Phone Jonathan Pham MD Primary Care Provider [phone] [phone] Encounter Details Date Type Department Care Team (Late st Contact Info) Description 11/24/2007 Outpatient Historical [facility] DEFAULT DEPARTMENT Awilda Ulloa MD [address] [place] [address] [address] Social History Tobacco Use Types Packs/Day Years Used Date Smoking Tobacco: Never Assessed Sex and Gender Information Value Date Recorded Sex Assigned at Not on file Legal 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 Male 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 Gender Identity Not on file Sexual Orientation Not on file documented as of this encounter Plan of Treatment Not on file documented as of this encounter Visit Diagnoses Not on filedocumented in this encounter Additional Health Concerns Infection Onset Date Last Indicated Resolved Time R/O COVID-19 08/19/2020 08/19/2020 08/20/2020 1:44 PM BAIL ATTACHER documented as of this encounter Care Teams Drywall Foreman Relationship Specialty Start Date End Date Jonathan Pham MD [address] [facility] [address] [place] [phone] PCP - General Family Practice 03/01/18 documented as of this encounter
--- OUTSIDE RECORDS SUMMARY | 2025-01-09 18:05 | XMS_ITS | Encounter Summary ---
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 DIFFICILE DETECTION Routine 6:52 PM CDT CBC WITH DIFFERENTIAL Routine 03/21/2007 7:45 AM CDT PROTIME-INR Routine 03/21/2007 7:45 AM CDT PROTIME-INR Routine 03/20/2007 6:31 AM CDT CBC WITH DIFFERENTIAL Routine 03/19/2007 6:50 AM CDT PROTIME-INR Routine 03/19/2007 6:50 AM CDT BASIC METABOLIC PANEL Routine 03/19/2007 6:50 AM CDT CBC WITH DIFFERENTIAL Routine 03/18/2007 6:38 AM CDT PROTIME-INR Routine 03/18/2007 6:38 AM CDT BASIC METABOLIC PANEL Routine 03/18/2007 6:38 AM CDT CBC WITH DIFFERENTIAL Routine 03/17/2007 6:50 AM CDT BASIC METABOLIC PANEL Routine 03/17/2007 6:50 AM CDT CBC WITH DIFFERENTIAL Routine 03/16/2007 4:59 AM CDT PTT Routine 03/16/2007 4:59 AM CDT COMPREHENSIVE METABOLIC PANEL Routine 03/16/2007 4:59 AM CDT documented in this encounter Results * (ABNORMAL) PROTIME-INR (03/22/2007 5:39 AM CDT) PROTIME 28.4(H) 13.0 - 15.7 Secs INTERFACE SYSTEM Comment: As of 06 note change in normal range. INR 2.5 INTERFACE SYSTEM Comment: Expected Values for INR: DVT/PE Goal INR 2.5; range 2.0 - 3.0 Valve Replacement Tissue Goal INR 2.5; range 2.0 - 3.0 Mechanical Goal INR 3.0; range 2.5 - 3.5 POST-CO Goal INR 2.5; range 2.0 - 3.0 or Goal 3.0; range 2.5 - 3.5 Atrial Fibrillation Goal INR 2.5; range 2.0 - 3.0 Ischemic Stroke Goal INR 2.5; range 2.0 - 3.0 For additional information see Guidelines for Anticoagulation available from the pharmacy Michael Chaudhry 03/22/2007 5:39 AM CDT Rajinder Posada MD HEMATOLOGY ORDERABLES Edited Performing Organization Address [facility] Phone Number INTERFACE SYSTEM Refer to clinic/hospital department * CLOSTRIDIUM DIFFICILE TOXIN (03/21/2007 6:52 PM CDT) C DIFFICILE TOXIN Negative Negative INTERFACE SYSTEM 03/21/2007 6:52 PM CDT Result [facility] Allegra Chester MD MICROBIOLOGY - GENERAL ORDERABLE S Edited Performing Organization Address [facility] Phone Number INTERFACE SYSTEM Refer to clinic/hospital department * (ABNORMAL) PROTIME-INR (03/21/2007 7:45 AM CDT) PROTIME 30.2(H) 13.0 - 15.7 Secs INTERFACE SYSTEM Comment: As of 06 note change in normal range. INR 2.7 INTERFACE SYSTEM Comment: Expected Values for INR: DVT/PE Goal INR 2.5; range 2.0 - 3.0 Valve Replacement Tissue Goal INR 2.5; range 2.0 - 3.0 Mechanical Goal INR 3.0; range 2.5 - 3.5 POST-CO Goal INR 2.5; range 2.0 - 3.0 or Goal 3.0; range 2.5 - 3.5 Atrial Fibrillation Goal INR 2.5; range 2.0 - 3.0 Ischemic Stroke Goal INR 2.5; range 2.0 - 3.0 For additional information see Guidelines for Anticoagulation available from the pharmacy Michael Chaudhry 03/21/2007 7:45 AM CDT us Rajinder Posada MD HEMATOLOGY ORDERABLES Edited INTERFACE SYSTEM Refer to clinic/hospital department * (ABNORMAL) CBC WITH DIFFERENTIAL (03/21/2007 7:45 AM CDT) WBC 6.2 4.5 - 11.0 K/ul INTERFACE SYSTEM RBC 4.23(L) 4.60 - 6.20 Mil/ul INTERFACE SYSTEM HEMOGLOBIN 11.3(L) 14.0 - 18.0 g/dL INTERFACE SYSTEM HEMATOCRIT 36.0(L) 41.0 - 53.0 % INTERFACE SYSTEM MCV 85.1 84.0 - 103.0 Fl INTERFACE SYSTEM MCH 26.7(L) 27.0 - 34.0 pg INTERFACE SYSTEM MCHC 31.4 30.0 - 35.0 g/dL INTERFACE SYSTEM RDW 15.0(H) 11.0 - 14.5 % INTERFACE SYSTEM PLATELETS 326 140 - 440 K/ul INTERFACE SYSTEM MPV 10.6 8.9 - 12.8 Fl INTERFACE SYSTEM NEUTROPHILS 60.8 42.2 - 75.2 % INTERFACE SYSTEM LYMPHOCYTES 28.4 24.0 - 44.0 % INTERFACE SYSTEM MONOCYTES 6.6 2.0 - 10.0 % INTERFACE SYSTEM EOSINOPHILS 3.9 0.0 - 7.0 % INTERFACE SYSTEM BASOPHILS 0.3 0.0 - 1.0 % INTERFACE SYSTEM NEUTROPHIL ABSOLUTE 3.8 2.0 - 8.0 K/ul INTERFACE SYSTEM LYMPHOCYTE ABSOLUTE 1.8 1.2 - 4.0 K/ul INTERFACE SYSTEM MONOCYTE ABSOLUTE 0.4 0.1 - 0.6 K/ul INTERFACE SYSTEM EOSINOPHIL ABSOLUTE 0.2 0.0 - 0.7 K/ul INTERFACE SYSTEM BASOPHILS ABSOLUTE 0.0 0.0 - 0.2 K/ul INTERFACE SYSTEM 03/21/2007 7:45 AM CDT us Rajinder Posada MD HEMATOLOGY ORDERABLES Edited INTERFACE SYSTEM Refer to clinic/hospital department * (ABNORMAL) PROTIME-INR (03/20/2007 6:31 AM CDT) PROTIME 25.9(H) 13.0 - 15.7 Secs INTERFACE SYSTEM Comment: As of 06 note change in normal range. INR 2.2 INTERFACE SYSTEM Comment: Expected Values for INR: DVT/PE Goal INR 2.5; range 2.0 - 3.0 Valve Replacement Tissue Goal INR 2.5; range 2.0 - 3.0 Mechanical Goal INR 3.0; range 2.5 - 3.5 POST-CO Goal INR 2.5; range 2.0 - 3.0 or Goal 3.0; range 2.5 - 3.5 Atrial Fibrillation Goal INR 2.5; range 2.0 - 3.0 Ischemic Stroke Goal INR 2.5; range 2.0 - 3.0 For additional information see Guidelines for Anticoagulation available from the pharmacy [facility] 03/20/2007 6:31 AM CDT Result Brianna Posada MD HEMATOLOGY ORDERABLES Edited Performing Organization Address [facility] de Phone Number INTERFACE SYSTEM Refer to clinic/hospital department * (ABNORMAL) PROTIME-INR (03/19/2007 6:50 AM CDT) PROTIME 19.0(H) 13.0 - 15.7 Secs INTERFACE SYSTEM Comment: As of 06 note change in normal range. INR 1.4 INTERFACE SYSTEM Comment: Expected Values for INR: DVT/PE Goal INR 2.5; range 2.0 - 3.0 Valve Replacement Tissue Goal INR 2.5; range 2.0 - 3.0 Mechanical Goal INR 3.0; range 2.5 - 3.5 POST-CO Goal INR 2.5; range 2.0 - 3.0 or Goal 3.0; range 2.5 - 3.5 Atrial Fibrillation Goal INR 2.5; range 2.0 - 3.0 Ischemic Stroke Goal INR 2.5; range 2.0 - 3.0 For additional information see Guidelines for Anticoagulation available from the pharmacy [facility] 03/19/2007 6:50 AM CDT Result Brianna Posada MD HEMATOLOGY ORDERABLES Edited Performing Organization Address [facility] de Phone Number INTERFACE SYSTEM Refer to clinic/hospital department * (ABNORMAL) CBC WITH DIFFERENTIAL (03/19/2007 6:50 AM CDT) WBC 6.0 4.5 - 11.0 K/ul INTERFACE SYSTEM RBC 3.74(L) 4.60 - 6.20 Mil/ul INTERFACE SYSTEM HEMOGLOBIN 10.0(L) 14.0 - 18.0 g/dL INTERFACE SYSTEM HEMATOCRIT 32.0(L) 41.0 - 53.0 % INTERFACE SYSTEM MCV 85.6 84.0 - 103.0 Fl INTERFACE SYSTEM MCH 26.7(L) 27.0 - 34.0 pg INTERFACE SYSTEM MCHC 31.3 30.0 - 35.0 g/dL INTERFACE SYSTEM RDW 15.1(H) 11.0 - 14.5 % INTERFACE SYSTEM PLATELETS 248 140 - 440 K/ul INTERFACE SYSTEM MPV 11.1 8.9 - 12.8 Fl INTERFACE SYSTEM NEUTROPHILS 65.1 42.2 - 75.2 % INTERFACE SYSTEM LYMPHOCYTES 23.9(L) 24.0 - 44.0 % INTERFACE SYSTEM MONOCYTES 6.2 2.0 - 10.0 % INTERFACE SYSTEM EOSINOPHILS 4.3 0.0 - 7.0 % INTERFACE SYSTEM BASOPHILS 0.5 0.0 - 1.0 % INTERFACE SYSTEM NEUTROPHIL ABSOLUTE 3.9 2.0 - 8.0 K/ul INTERFACE SYSTEM LYMPHOCYTE ABSOLUTE 1.4 1.2 - 4.0 K/ul INTERFACE SYSTEM MONOCYTE ABSOLUTE 0.4 0.1 - 0.6 K/ul INTERFACE SYSTEM EOSINOPHIL ABSOLUTE 0.3 0.0 - 0.7 K/ul INTERFACE SYSTEM BASOPHILS ABSOLUTE 0.0 0.0 - 0.2 K/ul INTERFACE SYSTEM 03/19/2007 6:50 AM CDT us Rajinder Posada MD HEMATOLOGY ORDERABLES Edited INTERFACE SYSTEM Refer to clinic/hospital department * (ABNORMAL) BASIC METABOLIC PANEL (03/19/2007 6:50 AM CDT) GLUCOSE 92 70 - 110 mg/dL INTERFACE SYSTEM BUN 11 9 - 20 mg/dL INTERFACE SYSTEM CREATININE 0.6(L) 0.7 - 1.5 mg/dL INTERFACE SYSTEM SODIUM 140 136 - 145 mEq/L INTERFACE SYSTEM POTASSIUM 4.3 3.5 - 5.0 mEq/L INTERFACE SYSTEM CHLORIDE 107 95 - 110 mEq/L INTERFACE SYSTEM CO2 27 22 - 32 mmol/l INTERFACE SYSTEM CALCIUM 8.6 8.4 - 10.5 mg/dL INTERFACE SYSTEM ANION GAP 10 9 - 20 mEq/L INTERFACE SYSTEM OSMOLALITY, CALCULATED 287 275 - 295 mOsm/Kg INTERFACE SYSTEM 03/19/2007 6:50 AM CDT Rajinder Posada MD CHEMISTRY ORDERABLES Edited Performing Organization Address [facility] Phone Number INTERFACE SYSTEM Refer to clinic/hospital department * (ABNORMAL) BASIC METABOLIC PANEL (03/18/2007 6:38 AM CDT) GLUCOSE 94 70 - 110 mg/dL INTERFACE SYSTEM BUN 12 9 - 20 mg/dL INTERFACE SYSTEM CREATININE 0.8 0.7 - 1.5 mg/dL INTERFACE SYSTEM SODIUM 138 136 - 145 mEq/L INTERFACE SYSTEM POTASSIUM 4.7 3.5 - 5.0 mEq/L INTERFACE SYSTEM CHLORIDE 105 95 - 110 mEq/L INTERFACE SYSTEM CO2 30 22 - 32 mmol/l INTERFACE SYSTEM CALCIUM 8.7 8.4 - 10.5 mg/dL INTERFACE SYSTEM ANION GAP 8(L) 9 - 20 mEq/L INTERFACE SYSTEM OSMOLALITY, CALCULATED 285 275 - 295 mOsm/Kg INTERFACE SYSTEM 03/18/2007 6:38 AM CDT Rajinder Posada MD CHEMISTRY ORDERABLES Edited Performing Organization Address [facility] Phone Number INTERFACE SYSTEM Refer to clinic/hospital department * (ABNORMAL) CBC WITH DIFFERENTIAL (03/18/2007 6:38 AM CDT) WBC 8.2 4.5 - 11.0 K/ul INTERFACE SYSTEM RBC 3.78(L) 4.60 - 6.20 Mil/ul INTERFACE SYSTEM HEMOGLOBIN 10.1(L) 14.0 - 18.0 g/dL INTERFACE SYSTEM HEMATOCRIT 33.1(L) 41.0 - 53.0 % INTERFACE SYSTEM MCV 87.6 84.0 - 103.0 Fl INTERFACE SYSTEM MCH 26.7(L) 27.0 - 34.0 pg INTERFACE SYSTEM MCHC 30.5 30.0 - 35.0 g/dL INTERFACE SYSTEM RDW 15.4(H) 11.0 - 14.5 % INTERFACE SYSTEM PLATELETS 278 140 - 440 K/ul INTERFACE SYSTEM MPV 10.8 8.9 - 12.8 Fl INTERFACE SYSTEM NEUTROPHILS 71.9 42.2 - 75.2 % INTERFACE SYSTEM LYMPHOCYTES 20.0(L) 24.0 - 44.0 % INTERFACE SYSTEM MONOCYTES 4.9 2.0 - 10.0 % INTERFACE SYSTEM EOSINOPHILS 3.0 0.0 - 7.0 % INTERFACE SYSTEM BASOPHILS 0.2 0.0 - 1.0 % INTERFACE SYSTEM NEUTROPHIL ABSOLUTE 5.9 2.0 - 8.0 K/ul INTERFACE SYSTEM LYMPHOCYTE ABSOLUTE 1.6 1.2 - 4.0 K/ul INTERFACE SYSTEM MONOCYTE ABSOLUTE 0.4 0.1 - 0.6 K/ul INTERFACE SYSTEM EOSINOPHIL ABSOLUTE 0.3 0.0 - 0.7 K/ul INTERFACE SYSTEM BASOPHILS ABSOLUTE 0.0 0.0 - 0.2 K/ul INTERFACE SYSTEM 03/18/2007 6:38 AM CDT Rajinder Posada MD HEMATOLOGY ORDERABLES Edited INTERFACE SYSTEM Refer to clinic/hospital department * (ABNORMAL) PROTIME-INR (03/18/2007 6:38 AM CDT) PROTIME 17.7(H) 13.0 - 15.7 Secs INTERFACE SYSTEM Comment: As of 06 note change in normal range. INR 1.3 INTERFACE SYSTEM Comment: Expected Values for INR: DVT/PE Goal INR 2.5; range 2.0 - 3.0 Valve Replacement Tissue Goal INR 2.5; range 2.0 - 3.0 Mechanical Goal INR 3.0; range 2.5 - 3.5 POST-CO Goal INR 2.5; range 2.0 - 3.0 or Goal 3.0; range 2.5 - 3.5 Atrial Fibrillation Goal INR 2.5; range 2.0 - 3.0 Ischemic Stroke Goal INR 2.5; range 2.0 - 3.0 For additional information see Guidelines for Anticoagulation available from the pharmacy Mihcael Chaudhry 03/18/2007 6:38 AM CDT Rajinder Posada MD HEMATOLOGY ORDERABLES Edited Performing Organization Address [facility] Phone Number INTERFACE SYSTEM Refer to clinic/hospital department * (ABNORMAL) BASIC METABOLIC PANEL (03/17/2007 6:50 AM CDT) GLUCOSE 104 70 - 110 mg/dL INTERFACE SYSTEM BUN 9 9 - 20 mg/dL INTERFACE SYSTEM CREATININE 0.9 0.7 - 1.5 mg/dL INTERFACE SYSTEM SODIUM 139 136 - 145 mEq/L INTERFACE SYSTEM POTASSIUM 4.4 3.5 - 5.0 mEq/L INTERFACE SYSTEM CHLORIDE 106 95 - 110 mEq/L INTERFACE SYSTEM CO2 24 22 - 32 mmol/l INTERFACE SYSTEM CALCIUM 8.1(L) 8.4 - 10.5 mg/dL INTERFACE SYSTEM ANION GAP 13 9 - 20 mEq/L INTERFACE SYSTEM OSMOLALITY, CALCULATED 286 275 - 295 mOsm/Kg INTERFACE SYSTEM 03/17/2007 6:50 AM CDT Rajinder Posada MD CHEMISTRY ORDERABLES Edited Performing Organization Address [facility] Phone Number INTERFACE SYSTEM Refer to clinic/hospital department * (ABNORMAL) CBC WITH DIFFERENTIAL (03/17/2007 6:50 AM CDT) WBC 9.6 4.5 - 11.0 K/ul INTERFACE SYSTEM RBC 3.56(L) 4.60 - 6.20 Mil/ul INTERFACE SYSTEM HEMOGLOBIN 9.6(L) 14.0 - 18.0 g/dL INTERFACE SYSTEM HEMATOCRIT 30.9(L) 41.0 - 53.0 % INTERFACE SYSTEM MCV 86.8 84.0 - 103.0 Fl INTERFACE SYSTEM MCH 27.0 27.0 - 34.0 pg INTERFACE SYSTEM MCHC 31.1 30.0 - 35.0 g/dL INTERFACE SYSTEM RDW 15.4(H) 11.0 - 14.5 % INTERFACE SYSTEM PLATELETS 261 140 - 440 K/ul INTERFACE SYSTEM MPV 11.1 8.9 - 12.8 Fl INTERFACE SYSTEM NEUTROPHILS 74.0 42.2 - 75.2 % INTERFACE SYSTEM LYMPHOCYTES 17.5(L) 24.0 - 44.0 % INTERFACE SYSTEM MONOCYTES 5.6 2.0 - 10.0 % INTERFACE SYSTEM EOSINOPHILS 2.7 0.0 - 7.0 % INTERFACE SYSTEM BASOPHILS 0.2 0.0 - 1.0 % INTERFACE SYSTEM NEUTROPHIL ABSOLUTE 7.1 2.0 - 8.0 K/ul INTERFACE SYSTEM LYMPHOCYTE ABSOLUTE 1.7 1.2 - 4.0 K/ul INTERFACE SYSTEM MONOCYTE ABSOLUTE 0.5 0.1 - 0.6 K/ul INTERFACE SYSTEM EOSINOPHIL ABSOLUTE 0.3 0.0 - 0.7 K/ul INTERFACE SYSTEM BASOPHILS ABSOLUTE 0.0 0.0 - 0.2 K/ul INTERFACE SYSTEM 03/17/2007 6:50 AM CDT Rajinder Posada MD HEMATOLOGY ORDERABLES Edited Performing Organization Address [facility] de Phone Number INTERFACE SYSTEM Refer to clinic/hospital department * (ABNORMAL) PTT (03/16/2007 4:59 AM CDT) PTT 47.9(H) 21.6 - 35.6 Secs INTERFACE SYSTEM Comment: Therapeutic Range: Hi-level PE/DVT heparin protocol 80.1 -95.0 sec Lo-level PE/DVT heparin protocol 67.1 - 80.0 sec Cardiac Heparin Protocol 67.1 - 85.0 sec Neuro Heparin Protocol 67.1 - 80.0 sec As of 06/24/2006 note change in APTT Normal Range. 03/16/2007 4:59 AM CDT Rajinder Posada MD HEMATOLOGY ORDERABLES Edited Performing Organization Address [facility] de Phone Number INTERFACE SYSTEM Refer to clinic/hospital department * (ABNORMAL) COMPREHENSIVE METABOLIC PANEL (03/16/2007 4:59 AM CDT) GLUCOSE 107 70 - 110 mg/dL INTERFACE SYSTEM BUN 13 9 - 20 mg/dL INTERFACE SYSTEM CREATININE 0.8 0.7 - 1.5 mg/dL INTERFACE SYSTEM SODIUM 137 136 - 145 mEq/L INTERFACE SYSTEM POTASSIUM 4.4 3.5 - 5.0 mEq/L INTERFACE SYSTEM CHLORIDE 104 95 - 110 mEq/L INTERFACE SYSTEM CO2 27 22 - 32 mmol/l INTERFACE SYSTEM CALCIUM 8.0(L) 8.4 - 10.5 mg/dL INTERFACE SYSTEM TOTAL PROTEIN 6.3 6.3 - 8.2 g/dL INTERFACE SYSTEM ALBUMIN 3.0(L) 3.5 - 5.0 g/dL INTERFACE SYSTEM ALKALINE PHOSPHATASE 110(H) 25 - 100 U/L INTERFACE SYSTEM AST 30 8 - 33 U/L INTERFACE SYSTEM ALT 53(H) 4 - 36 IU/L INTERFACE SYSTEM BILIRUBIN TOTAL 0.4 0.3 - 1.2 mg/dL INTERFACE SYSTEM GLOBULIN (CALC) 3.3 2.4 - 3.9 g/dL INTERFACE SYSTEM ALBUMIN/GLOBULIN RATIO 0.9(L) 1.0 - 2.3 INTERFACE SYSTEM ANION GAP 10 9 - 20 mEq/L INTERFACE SYSTEM OSMOLALITY, CALCULATED 284 275 - 295 mOsm/Kg INTERFACE SYSTEM 03/16/2007 4:59 AM CDT us Rajinder Posada MD CHEMISTRY ORDERABLES Edited INTERFACE SYSTEM Refer to clinic/hospital department * (ABNORMAL) CBC WITH DIFFERENTIAL (03/16/2007 4:59 AM CDT) WBC 11.1(H) 4.5 - 11.0 K/ul INTERFACE SYSTEM RBC 3.56(L) 4.60 - 6.20 Mil/ul INTERFACE SYSTEM HEMOGLOBIN 9.7(L) 14.0 - 18.0 g/dL INTERFACE SYSTEM HEMATOCRIT 30.7(L) 41.0 - 53.0 % INTERFACE SYSTEM MCV 86.2 84.0 - 103.0 Fl INTERFACE SYSTEM MCH 27.2 27.0 - 34.0 pg INTERFACE SYSTEM MCHC 31.6 30.0 - 35.0 g/dL INTERFACE SYSTEM RDW 15.4(H) 11.0 - 14.5 % INTERFACE SYSTEM PLATELETS 242 140 - 440 K/ul INTERFACE SYSTEM MPV 11.3 8.9 - 12.8 Fl INTERFACE SYSTEM NEUTROPHILS 76.4(H) 42.2 - 75.2 % INTERFACE SYSTEM LYMPHOCYTES 15.8(L) 24.0 - 44.0 % INTERFACE SYSTEM MONOCYTES 4.9 2.0 - 10.0 % INTERFACE SYSTEM EOSINOPHILS 2.6 0.0 - 7.0 % INTERFACE SYSTEM BASOPHILS 0.3 0.0 - 1.0 % INTERFACE SYSTEM NEUTROPHIL ABSOLUTE 8.4(H) 2.0 - 8.0 K/ul INTERFACE SYSTEM LYMPHOCYTE ABSOLUTE 1.8 1.2 - 4.0 K/ul INTERFACE SYSTEM MONOCYTE ABSOLUTE 0.5 0.1 - 0.6 K/ul INTERFACE SYSTEM EOSINOPHIL ABSOLUTE 0.3 0.0 - 0.7 K/ul INTERFACE SYSTEM BASOPHILS ABSOLUTE 0.0 0.0 - 0.2 K/ul INTERFACE SYSTEM 03/16/2007 4:59 AM CDT us Rajinder Posada MD HEMATOLOGY ORDERABLES Edited INTERFACE SYSTEM Refer to clinic/hospital department documented in this encounter Visit Diagnoses Diagnosis Iatrogenic pulmonary embolism and infarction (CMS/HCC)- Primary Iatrogenic pulmonary embolism and infarction documented in this encounter Additional Health Concerns Infection Onset Date Last Indicated Resolved Time R/O COVID-19 08/19/2020 08/19/2020 08/20/2020 1:44 PM DISEASE CASE MANAGER RN documented as of this encounter Care Teams Front Office Supervisor Relationship Specialty Start Date End Date Jonathan Pham MD [address] [phone] PCP - General Family Practice 03/01/18 documented as of this encounter
--- OUTSIDE RECORDS SUMMARY | 2025-01-09 18:05 | XMS_ITS | Encounter Summary ---
Author Organization [facility] Address [address] [place] [address] Care Team Providers Care Director Of Career Resources Name Role Phone Jonathan Pham MD Primary Care Provider [phone] Encounter Details Date Type Department Care Team (Late st Contact Info) Description 01/02/2025 External Device Data [place] ABSTRACTION Provider, Abstract NO ADDRESS ON FILE Social History Tobacco Use Types Packs/Day Years Used Date Smoking Tobacco: Former Cigarettes Q uit: 12/17/2016 Smokeless Tobacco: Current Chew Alcohol Use Standard Drinks/Week Comments Not Currently 5 (1 standard drink = 0.6 oz pur e alcohol) Feeling Safe Answer Date Recorded Within the last year, have y ou been afraid of your partner or ex-partner? No 09/10/2020 Within the last year, have y ou been humiliated or emotionally abused in other ways by your partner or ex-partner? No Within the last year, have y ou been kicked, hit, slapped, or otherwise physically hurt by your partner or ex-partner? No 09/10/2020 Within the last year, have y ou been raped or forced to have any kind of sexual activity by your partner or ex-partner? No 09/10/2020 Social Connections Answer Date Recorded In a typical week, how many times do you talk on the phone with family, friends, or neighbors? Once a week 09/10/2020 How often do you get together with friends or re latives? Once a week 09/10/2020 How often do you attend buddhism or pentecostal serv ices? Never 09/10/2020 Do you belong to any clubs o r organizations such as buddhism groups, unions, fraternal or athletic groups, or school groups? No 09/10/2020 How often do you attend meet ings of the clubs or organizations you belong to? Never 09/10/2020 Are you , , di vorced, , never , or living with a partner? 09/10/2020 Financial Resource Strain Answer Date R ecorded How hard is it for you to pa y for the very basics like food, housing, medical care, and heating? Not hard at all 09/10/2020 Food Insecurity Answer Date Recorded Within the past 12 months, y ou worried that your food would run out before you got the money to buy more. Never true 09/10/19 21 Within the past 12 months, t he food you bought just didn't last and you didn't have money to get more. Never true 09/10/2020 Transportation Needs Answer Date Record ed In the past 12 months, has l ack of transportation kept you from medical appointments or from getting medications? No 08/20 In the past 12 months, has l ack of transportation kept you from meetings, work, or from getting things needed for daily living? No 09/10/2020 Feeling Safe Answer Date Recorded Are you in a relationship wi th someone who hurts you emotionally and/or physically? 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 Gender Identity Not on file Sexual Orientation Not on file documented as of this encounter Plan of Treatment Upcoming Encounters Date Type Department Care Team (Late st Contact Info) Description 05/07/2025 2:00 PM CDT Office Visit [facility] [place] [address] [address] Jonathan Pham MD [address] [phone] documented as of this encounter Visit Diagnoses Not on filedocumented in this encounter Care Teams Director Of Career Resources Relationship Specialty Start Date End Date Jonathan Pham MD [address] [phone] PCP - General Family Practice 03/01/18 documented as of this encounter
--- OUTSIDE RECORDS SUMMARY | 2025-01-09 18:05 | XMS_ITS | Encounter Summary ---
Author Organization [facility] Address [address] [place] [address] Care Team Providers Care Hardware Trainer Name Role Phone Jonathan Pham MD Primary Care Provider [phone] Encounter Details Date Type Department Care Team (Latest Contact Info) Description 05/04/2007 Outpatient Historical [facility] 

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
--- OUTSIDE RECORDS SUMMARY | 2025-01-09 18:05 | XMS_ITS | Encounter Summary ---
Author Organization [facility] Address [address] [place] [address] Care Team Providers Care Independent Sales Representative Name Role Phone Jonathan Pham MD Primary Care Provider [phone] Encounter Details Date Type Department Care Team (Late st Contact Info) Description 03/22/2007 Inpatient Historical HIS IN BED Marcel Madrid MD [facility] [place] [address] Other Specified Rehabilitation Procedure (Primary Dx) Social History Tobacco Use Types Packs/Day Years Used Date Smoking Tobacco: Never Assessed Sex and Gender Information Value Date Recorded Sex Assigned at Not on file 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 INR 2.2 INTERFACE SYSTEM Comment: Expected Values for INR: DVT/PE Goal INR 2.5; range 2.0 - 3.0 Valve Replacement Tissue Goal INR 2.5; range 2.0 - 3.0 Mechanical Goal INR 3.0; range 2.5 - 3.5 POST-VT Goal INR 2.5; range 2.0 - 3.0 or Goal 3.0; range 2.5 - 3.5 Atrial Fibrillation Goal INR 2.5; range 2.0 - 3.0 Ischemic Stroke Goal INR 2.5; range 2.0 - 3.0 For additional information see Guidelines for Anticoagulation available from the pharmacy Janie Walls, Pharm D. 03/25/2007 8:14 AM CDT us Marcel Madrid MD HEMATOLOGY ORDERABLES Edited INTERFACE SYSTEM Refer to clinic/hospital department * POC GLUCOSE (03/25/2007 7:40 AM CDT) GLUCOSE POC 97 60 - 100 mg/dL INTERFACE SYSTEM 03/25/2007 7:40 AM CDT us Marcel Madrid MD POINT OF CARE TESTING Edited Performing Organization Address [facility] Co de Phone Number INTERFACE SYSTEM Refer to clinic/hospital department * (ABNORMAL) PROTIME-INR (03/24/2007 12:05 PM CDT) PROTIME 24.7(H) 13.0 - 15.7 Secs INTERFACE SYSTEM Comment: As of 06 note change in normal range. INR 2.0 INTERFACE SYSTEM Comment: Expected Values for INR: DVT/PE Goal INR 2.5; range 2.0 - 3.0 Valve Replacement Tissue Goal INR 2.5; range 2.0 - 3.0 Mechanical Goal INR 3.0; range 2.5 - 3.5 POST-VT Goal INR 2.5; range 2.0 - 3.0 or Goal 3.0; range 2.5 - 3.5 Atrial Fibrillation Goal INR 2.5; range 2.0 - 3.0 Ischemic Stroke Goal INR 2.5; range 2.0 - 3.0 For additional information see Guidelines for Anticoagulation available from the pharmacy Janie Walls Pharm D. 03/24/2007 12:0 5 PM CDT us Marcel Madrid MD HEMATOLOGY ORDERABLES Edited Performing Organization Address City/State/[facility] Co de Phone Number INTERFACE SYSTEM Refer to clinic/hospital department * (ABNORMAL) PROTIME-INR (03/23/2007 4:20 PM CDT) PROTIME 24.3(H) 13.0 - 15.7 Secs INTERFACE SYSTEM Comment: As of 06 note change in normal range. INR 2.0 INTERFACE SYSTEM Comment: Expected Values for INR: DVT/PE Goal INR 2.5; range 2.0 - 3.0 Valve Replacement Tissue Goal INR 2.5; range 2.0 - 3.0 Mechanical Goal INR 3.0; range 2.5 - 3.5 POST-VT Goal INR 2.5; range 2.0 - 3.0 or Goal 3.0; range 2.5 - 3.5 Atrial Fibrillation Goal INR 2.5; range 2.0 - 3.0 Ischemic Stroke Goal INR 2.5; range 2.0 - 3.0 For additional information see Guidelines for Anticoagulation available from the pharmacy Janie Walls Pharm Ruthy 03/23/2007 4:20 PM CDT us Marcel Madrid MD HEMATOLOGY ORDERABLES Edited Performing Organization Address City/State/[facility] Co de Phone Number INTERFACE SYSTEM Refer to clinic/hospital department documented in this encounter Visit Diagnoses Diagnosis Other specified rehabilitation procedure(V57.89)- Primary Other specified rehabilitation procedure documented in this encounter Additional Health Concerns Infection Onset Date Last Indicated Resolved Time R/O COVID-19 08/19/2020 08/19/2020 08/20/2020 

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
--- OUTSIDE RECORDS SUMMARY | 2025-01-09 18:05 | XMS_ITS | Encounter Summary ---
Author Organization [facility] Address [address] [place] [address] Care Team Providers Care Guest Relations Representative Name Role Phone Jonathan Pham MD Primary Care Provider [phone] Encounter Details Date Type Department Care Team (Latest Contact Info) Description 03/31/2007 Outpatient Historical [facility] [address] 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 Gender Identity Not on file Sexual Orientation Not on file documented as of this encounter Plan of Treatment Not on file documented as of this encounter Visit Diagnoses Diagnosis Aftercare trauma surgery- Primary Aftercare following surgery for injury and trauma documented in this encounter Additional Health Concerns Infection Onset Date Last Indicated Resolved Time R/O COVID-19 08/19/2020 08/19/2020 08/20/2020 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
--- OUTSIDE RECORDS SUMMARY | 2025-01-09 18:05 | XMS_ITS | Encounter Summary ---
Author Organization [facility] Address [address] [place] [address] Care Team Providers Care Stummel Selector Name Role Phone Jonathan Pham MD Primary Care Provider [phone] Encounter Details Date Type Department Care Team (Late st Contact Info) Description 02/19/2007 Inpatient Historical HIS IN BED Marcel Madrid MD [facility] [place] [address] Other Specified Rehabilitation Procedure (Primary Dx) Social History Tobacco Use Types Packs/Day Years Used Date Smoking Tobacco: Never Assessed Sex and Gender Information Value Date Recorded Sex Assigned at Not on file Legal 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 Gender Identity Not on file Sexual Orientation Not on file documented as of this encounter Plan of Treatment Not on file documented as of this encounter Procedures Procedure Name Priority Date/Time Associated Diagnosis Comments POC BLOOD GAS, LYTES AND H+H Routine 03/15/2007 6:43 PM CDT BASIC METABOLIC PANEL PLUS Routine 03/15/2007 2:57 PM CDT CBC WITH DIFFERENTIAL Routine 03/15/2007 2:57 PM CDT PTT Routine 03/15/2007 2:57 PM CDT PROTIME-INR Routine 03/15/2007 2:57 PM CDT CREATININE Routine 03/15/2007 2:57 PM CDT BASIC METABOLIC PANEL Routine 03/15/2007 2:57 PM CDT URINALYSIS MICROSCOPY ONLY Routine 03/13/2007 6:15 PM CDT URINALYSIS W/REFLEX MICROSCOPIC Routine 03/13/2007 6:15 PM CDT DRUG SCREEN, URINE Routine 03/09/2007 8: 13 PM CDT CBC WITH DIFFERENTIAL Routine 03/09/2007 7:25 AM CDT CBC WITH DIFFERENTIAL Routine 03/07/2007 6:59 AM CDT CBC WITH DIFFERENTIAL Routine 02/26/2007 6:10 AM CDT ALBUMIN LEVEL Routine 02/26/2007 6:10 AM CDT BASIC METABOLIC PANEL Routine 02/26/2007 6:10 AM CDT POC GLUCOSE Routine 02/22/2007 6:51 AM CDT POC GLUCOSE Routine 02/21/2007 5:16 PM CDT POC GLUCOSE Routine 02/21/2007 6:44 AM CDT POC GLUCOSE Routine 02/20/2007 9:20 PM CDT POC GLUCOSE Routine 02/20/2007 4:32 PM CDT URINALYSIS MICROSCOPY ONLY Routine 02/20/2007 3:02 PM CDT URINALYSIS W/REFLEX MICROSCOPIC Routine 02/20/2007 3:02 PM CDT POC GLUCOSE Routine 02/20/2007 11:42 AM CDT POC GLUCOSE Routine 02/20/2007 7:05 AM CDT CBC WITH DIFFERENTIAL Routine 02/20/2007 6:40 AM CDT COMPREHENSIVE METABOLIC PANEL Routine 02/20/2007 6:40 AM CDT POC GLUCOSE Routine 02/19/2007 9:04 PM CDT POC GLUCOSE Routine 02/19/2007 6:44 PM CDT CTA CHEST W WO CONTRAST Routine 02/19/2007 4:23 PM CDT XR SHOULDER 2+ VW RIGHT Routine 02/19/2007 4:23 PM CDT XR THORACIC SPINE 3 VW Routine 7 4:23 PM CDT documented in this encounter Results * (ABNORMAL) POC ISTAT EG 7+ (03/15/2007 6:43 PM CDT) SPECIMEN TYPE Arterial INTERF MONA SYSTEM Comment: Test Performed By [id number] Pulse OX: 90 Hemoglobin calculated from Hematocrit result FIO2 4 INTERFACE SYSTEM PH 7.50(H) 7.35 - 7.45 Unit INTERFACE SYSTEM PH TEMP CORRECT 7.50(H) 7.35 - 7.45 Unit INTERFACE SYSTEM PCO2 POC 33(L) 35 - 45 mmHg INTERFACE SYSTEM PCO2 TEMP CORRECT 33(L) 35 - 45 mmHg INTERFACE SYSTEM PO2 52(L) 80 - 105 mmHg INTERFACE SYSTEM PO2 TEMP CORRECT 52(L) 80 - 105 mmHg INTERFACE SYSTEM HCO3 (CALC) POC 25.6 22.0 - 26.0 mmol/l INTERFACE SYSTEM BASE EXCESS 2 -2 - 3 mmol/l INTERFACE SYSTEM HEMOGLOBIN POC 10.2 3 g/dL 13.5 - 18.0 g/dL INTERFACE SYSTEM HEMATOCRIT ABG 30(L) 38 - 51 % INTER FACE SYSTEM O2 SATURATION 90(L) 95 - 98 % INTERF MONA SYSTEM TCO2 (CALC) POC 27 23 - 27 mmol/l INTERFACE SYSTEM SODIUM 136(L) 138 - 146 mEq/L INTERFACE SYSTEM POTASSIUM 3.8 3.5 - 4.9 mEq/L INTERFACE SYSTEM CALCIUM IONIZED 1.15 1.12 - 1.32 mmol/l INTERFACE SYSTEM 03/15/2007 6:43 PM CDT us Marcel Madrid MD POINT OF CARE TESTING COM Edite d Performing Organization Address City/State/[facility] Co de Phone Number INTERFACE SYSTEM Refer to clinic/hospital department * PTT (03/15/2007 2:57 PM CDT) PTT 33.2 21.6 - 35.6 Secs INTERFACE SYSTEM Comment: Therapeutic Range: Hi-level PE/DVT heparin protocol 80.1 -95.0 sec Lo-level PE/DVT heparin protocol 67.1 - 80.0 sec Cardiac Heparin Protocol 67.1 - 85.0 sec Neuro Heparin Protocol 67.1 - 80.0 sec As of 06/24/2006 note change in APTT Normal Range. 03/15/2007 2:57 PM CDT us Marcel Madrid MD HEMATOLOGY ORDERABLES Edited Performing Organization Address [facility] de Phone Number INTERFACE SYSTEM Refer to clinic/hospital department * PROTIME-INR (03/15/2007 2:57 PM CDT) PROTIME 15.3 13.0 - 15.7 Secs INTERFACE SYSTEM Comment: As of 06 note change in normal range. INR 1.1 INTERFACE SYSTEM Comment: Expected Values for INR: DVT/PE Goal INR 2.5; range 2.0 - 3.0 Valve Replacement Tissue Goal INR 2.5; range 2.0 - 3.0 Mechanical Goal INR 3.0; range 2.5 - 3.5 POST-LA Goal INR 2.5; range 2.0 - 3.0 or Goal 3.0; range 2.5 - 3.5 Atrial Fibrillation Goal INR 2.5; range 2.0 - 3.0 Ischemic Stroke Goal INR 2.5; range 2.0 - 3.0 For additional information see Guidelines for Anticoagulation available from the pharmacy [facility]. 03/15/2007 2:57 PM CDT us Marcel Madrid MD HEMATOLOGY ORDERABLES Edited INTERFACE SYSTEM Refer to clinic/hospital department * (ABNORMAL) CBC WITH DIFFERENTIAL (03/15/2007 2:57 PM CDT) WBC 9.7 4.5 - 11.0 K/ul INTERFACE SYSTEM RBC 3.80(L) 4.60 - 6.20 Mil/ul INTERFACE SYSTEM HEMOGLOBIN 10.4(L) 14.0 - 18.0 g/dL INTERFACE SYSTEM HEMATOCRIT 32.9(L) 41.0 - 53.0 % INTERFACE SYSTEM MCV 86.6 84.0 - 103.0 Fl INTERFACE SYSTEM MCH 27.4 27.0 - 34.0 pg INTERFACE SYSTEM MCHC 31.6 30.0 - 35.0 g/dL INTERFACE SYSTEM RDW 15.4(H) 11.0 - 14.5 % INTERFACE SYSTEM PLATELETS 254 140 - 440 K/ul INTERFACE SYSTEM MPV 11.5 8.9 - 12.8 Fl INTERFACE SYSTEM NEUTROPHILS 71.1 42.2 - 75.2 % INTERFACE SYSTEM LYMPHOCYTES 18.1(L) 24.0 - 44.0 % INTERFACE SYSTEM MONOCYTES 7.4 2.0 - 10.0 % INTERFACE SYSTEM EOSINOPHILS 3.2 0.0 - 7.0 % INTERFACE SYSTEM BASOPHILS 0.2 0.0 - 1.0 % INTERFACE SYSTEM NEUTROPHIL ABSOLUTE 6.9 2.0 - 8.0 K/ul INTERFACE SYSTEM LYMPHOCYTE ABSOLUTE 1.8 1.2 - 4.0 K/ul INTERFACE SYSTEM MONOCYTE ABSOLUTE 0.7(H) 0.1 - 0.6 K/ul INTERFACE SYSTEM EOSINOPHIL ABSOLUTE 0.3 0.0 - 0.7 K/ul INTERFACE SYSTEM BASOPHILS ABSOLUTE 0.0 0.0 - 0.2 K/ul INTERFACE SYSTEM 03/15/2007 2:57 PM CDT us Marcel Madrid MD HEMATOLOGY ORDERABLES Edited INTERFACE SYSTEM Refer to clinic/hospital department * BASIC METABOLIC PANEL (03/15/2007 2:57 PM CDT) GLUCOSE 106 70 - 110 mg/dL INTERFACE SYSTEM BUN 16 9 - 20 mg/dL INTERFACE SYSTEM CREATININE 0.8 0.7 - 1.5 mg/dL INTERFACE SYSTEM SODIUM 139 136 - 145 mEq/L INTERFACE SYSTEM POTASSIUM 4.0 3.5 - 5.0 mEq/L INTERFACE SYSTEM CHLORIDE 105 95 - 110 mEq/L INTERFACE SYSTEM CO2 24 22 - 32 mmol/l INTERFACE SYSTEM CALCIUM 8.7 8.4 - 10.5 mg/dL INTERFACE SYSTEM ANION GAP 14 9 - 20 mEq/L INTERFACE SYSTEM OSMOLALITY, CALCULATED 288 275 - 295 mOsm/Kg INTERFACE SYSTEM 03/15/2007 2:57 PM CDT Marcel Madrid MD CHEMISTRY ORDERABLES Edited Performing Organization Address [facility] Phone Number INTERFACE SYSTEM Refer to clinic/hospital department * (ABNORMAL) BASIC METABOLIC PANEL PLUS (03/15/2007 2:57 PM CDT) TOTAL PROTEIN 6.6 6.3 - 8.2 g/dL INTERFACE SYSTEM ALBUMIN 3.3(L) 3.5 - 5.0 g/dL INTERFACE SYSTEM ALKALINE PHOSPHATASE 120(H) 25 - 100 U/L INTERFACE SYSTEM AST 40(H) 8 - 33 U/L INTERFACE SYSTEM ALT 64(H) 4 - 36 IU/L INTERFACE SYSTEM BILIRUBIN TOTAL 0.3 0.3 - 1.2 mg/dL INTERFACE SYSTEM 03/15/2007 2:57 PM CDT us Marcel Madrid MD CHEMISTRY ORDERABLES Edited Performing Organization Address [facility] Phone Number INTERFACE SYSTEM Refer to clinic/hospital department * CREATININE (03/15/2007 2:57 PM CDT) Pathologist [facility] CREATININE 0.8 0.7 - 1.5 mg/dL INTERFACE SYSTEM 03/15/2007 2:57 PM CDT us Marcel Madrid MD CHEMISTRY ORDERABLES Edited Performing Organization Address [facility] Phone Number INTERFACE SYSTEM Refer to clinic/hospital department * (ABNORMAL) URINALYSIS MICROSCOPY ONLY (03/13/2007 6:15 PM CDT) Pathologist [facility] MICRO COMMENT INTERF MONA SYSTEM Comment: wbcs in clumps WBC URINE 16-25(A) 0 - 2 INTERFACE SYSTEM RBC UA None Seen 0 - 2 INTERFACE SYSTEM HYALINE CAST None Seen 0 - 2 INTERFA CE SYSTEM BACTERIA UA Many(A) None Seen INTERFAC E SYSTEM 03/13/2007 6:15 PM CDT Marcel Madrid MD URINE ORDERABLES Edited Performing Organization Address [facility] Phone Number INTERFACE SYSTEM Refer to clinic/hospital department * (ABNORMAL) URINALYSIS (03/13/2007 6:15 PM CDT) COLOR UA Yellow Straw INTERFACE SYSTEM CLARITY UA SL CLOUDY Clear INTERFACE SYSTEM LEUKOCYTE ESTERASE UA Trace(A) NEGATIVE INTERFACE SYSTEM NITRITE UA POSITIVE(A) NEGATIVE INTERFA CE SYSTEM PH UA 5.5 5.0 - 9.0 INTERFACE SYSTEM PROTEIN UA NEGATIVE NEGATIVE INTERFACE SYSTEM GLUCOSE UA NEGATIVE NEGATIVE INTERFACE SYSTEM KETONES UA NEGATIVE NEGATIVE INTERFACE SYSTEM UROBILINOGEN UA 2.0(A) 0.2 INTE RFACE SYSTEM BILIRUBIN UA NEGATIVE NEGATIVE INTERFA CE SYSTEM BLOOD UA NEGATIVE NEGATIVE INTERFACE SYSTEM SPECIFIC GRAVITY UA 1.025 1.005 - 1.030 INTERFACE SYSTEM MICRO EXAM Yes(A) No INTERFACE SYSTEM 03/13/2007 6:15 PM CDT Marcel Madrid MD URINE ORDERABLES Edited Performing Organization Address [facility] INTERFACE SYSTEM Refer to clinic/hospital department * DRUG SCREEN, URINE (03/09/2007 8:13 PM CDT) AMPHETAMINE QUAL, URINE Drug Negative Drug Negative INTERFACE SYSTEM Comment: All components of the Urine Drug Screen are performed by Immunoassay. Confirmation must be requested by physician before being sent out. NOTE: The ingestion of natural herbal and plant products containing Ephedra/Ephedra metabolites can produce in urine one or more substances capable of cross reacting with amphetamine/methamphetamine immunoassays. This test provides a preliminary result only. A more specific alternative chemical method must be used to obtain a confirmed analytical result. Drug Screening Cutoff Amphetamine/Methamphetamine 1000 ng/ml Barbiturates 200 ng/ml Benzodiazepines 200 ng/ml Cannabinoid 50 ng/ml Cocaine Metabolite 300 ng/ml Opiates 300 ng/ml PCP 25 ng/ml Immunoassay Screening results above cutoff value are reported as Positive. BARBITURATE QUAL, URINE Drug Negative Drug Negative INTERFACE SYSTEM COCAINE QUAL URINE Drug Negative Drug Negative INTERFACE SYSTEM PCP QUAL, URINE Drug Negative Drug Negative INTERFACE SYSTEM CANNABINOIDS QUAL, URINE Drug Negative Drug Negative INTERFACE SYSTEM BENZODIAZEPINE QUAL, URINE Drug Negative Drug Negative INTERFACE SYSTEM OPIATE QUAL, URINE Drug Negative Drug Negative INTERFACE SYSTEM 03/09/2007 8:13 PM CDT us Marcel Madrid MD URINE ORDERABLES Edited INTERFACE SYSTEM Refer to clinic/hospital department * (ABNORMAL) CBC WITH DIFFERENTIAL (03/09/2007 7:25 AM CDT) WBC 10.6 4.5 - 11.0 K/ul INTERFACE SYSTEM RBC 3.69(L) 4.60 - 6.20 Mil/ul INTERFACE SYSTEM HEMOGLOBIN 10.2(L) 14.0 - 18.0 g/dL INTERFACE SYSTEM HEMATOCRIT 32.6(L) 41.0 - 53.0 % INTERFACE SYSTEM MCV 88.3 84.0 - 103.0 Fl INTERFACE SYSTEM MCH 27.6 27.0 - 34.0 pg INTERFACE SYSTEM MCHC 31.3 30.0 - 35.0 g/dL INTERFACE SYSTEM RDW 14.8(H) 11.0 - 14.5 % INTERFACE SYSTEM PLATELETS 210 140 - 440 K/ul INTERFACE SYSTEM MPV 10.4 8.9 - 12.8 Fl INTERFACE SYSTEM NEUTROPHILS 69.6 42.2 - 75.2 % INTERFACE SYSTEM LYMPHOCYTES 18.0(L) 24.0 - 44.0 % INTERFACE SYSTEM MONOCYTES 8.8 2.0 - 10.0 % INTERFACE SYSTEM EOSINOPHILS 3.3 0.0 - 7.0 % INTERFACE SYSTEM BASOPHILS 0.3 0.0 - 1.0 % INTERFACE SYSTEM NEUTROPHIL ABSOLUTE 7.4 2.0 - 8.0 K/ul INTERFACE SYSTEM LYMPHOCYTE ABSOLUTE 1.9 1.2 - 4.0 K/ul INTERFACE SYSTEM MONOCYTE ABSOLUTE 0.9(H) 0.1 - 0.6 K/ul INTERFACE SYSTEM EOSINOPHIL ABSOLUTE 0.4 0.0 - 0.7 K/ul INTERFACE SYSTEM BASOPHILS ABSOLUTE 0.0 0.0 - 0.2 K/ul INTERFACE SYSTEM 03/09/2007 7:25 AM CDT Marcel Madrid MD HEMATOLOGY ORDERABLES Edited INTERFACE SYSTEM Refer to clinic/hospital department * (ABNORMAL) CBC WITH DIFFERENTIAL (03/07/2007 6:59 AM CDT) WBC 9.3 4.5 - 11.0 K/ul INTERFACE SYSTEM RBC 3.77(L) 4.60 - 6.20 Mil/ul INTERFACE SYSTEM HEMOGLOBIN 10.5(L) 14.0 - 18.0 g/dL INTERFACE SYSTEM HEMATOCRIT 33.4(L) 41.0 - 53.0 % INTERFACE SYSTEM MCV 88.6 84.0 - 103.0 Fl INTERFACE SYSTEM MCH 27.9 27.0 - 34.0 pg INTERFACE SYSTEM MCHC 31.4 30.0 - 35.0 g/dL INTERFACE SYSTEM RDW 14.5 11.0 - 14.5 % INTERFACE SYSTEM PLATELETS 278 140 - 440 K/ul INTERFACE SYSTEM MPV 9.7 8.9 - 12.8 Fl INTERFACE SYSTEM NEUTROPHILS 66.9 42.2 - 75.2 % INTERFACE SYSTEM LYMPHOCYTES 20.5(L) 24.0 - 44.0 % INTERFACE SYSTEM MONOCYTES 8.0 2.0 - 10.0 % INTERFACE SYSTEM EOSINOPHILS 4.1 0.0 - 7.0 % INTERFACE SYSTEM BASOPHILS 0.5 0.0 - 1.0 % INTERFACE SYSTEM NEUTROPHIL ABSOLUTE 6.2 2.0 - 8.0 K/ul INTERFACE SYSTEM LYMPHOCYTE ABSOLUTE 1.9 1.2 - 4.0 K/ul INTERFACE SYSTEM MONOCYTE ABSOLUTE 0.7(H) 0.1 - 0.6 K/ul INTERFACE SYSTEM EOSINOPHIL ABSOLUTE 0.4 0.0 - 0.7 K/ul INTERFACE SYSTEM BASOPHILS ABSOLUTE 0.1 0.0 - 0.2 K/ul INTERFACE SYSTEM 03/07/2007 6:59 AM CDT Marcel Madrid MD HEMATOLOGY ORDERABLES Edited INTERFACE SYSTEM Refer to clinic/hospital department * (ABNORMAL) CBC WITH DIFFERENTIAL (02/26/2007 6:10 AM CDT) WBC 10.1 4.5 - 11.0 K/ul INTERFACE SYSTEM RBC 3.26(L) 4.60 - 6.20 Mil/ul INTERFACE SYSTEM HEMOGLOBIN 9.6(L) 14.0 - 18.0 g/dL INTERFACE SYSTEM HEMATOCRIT 29.6(L) 41.0 - 53.0 % INTERFACE SYSTEM MCV 90.8 84.0 - 103.0 Fl INTERFACE SYSTEM MCH 29.4 27.0 - 34.0 pg INTERFACE SYSTEM MCHC 32.4 30.0 - 35.0 g/dL INTERFACE SYSTEM RDW 13.7 11.0 - 14.5 % INTERFACE SYSTEM PLATELETS 346 140 - 440 K/ul INTERFACE SYSTEM MPV 10.1 8.9 - 12.8 Fl INTERFACE SYSTEM NEUTROPHILS 69.9 42.2 - 75.2 % INTERFACE SYSTEM LYMPHOCYTES 19.0(L) 24.0 - 44.0 % INTERFACE SYSTEM MONOCYTES 7.6 2.0 - 10.0 % INTERFACE SYSTEM EOSINOPHILS 3.1 0.0 - 7.0 % INTERFACE SYSTEM BASOPHILS 0.4 0.0 - 1.0 % INTERFACE SYSTEM NEUTROPHIL ABSOLUTE 7.1 2.0 - 8.0 K/ul INTERFACE SYSTEM LYMPHOCYTE ABSOLUTE 1.9 1.2 - 4.0 K/ul INTERFACE SYSTEM MONOCYTE ABSOLUTE 0.8(H) 0.1 - 0.6 K/ul INTERFACE SYSTEM EOSINOPHIL ABSOLUTE 0.3 0.0 - 0.7 K/ul INTERFACE SYSTEM BASOPHILS ABSOLUTE 0.0 0.0 - 0.2 K/ul INTERFACE SYSTEM 02/26/2007 6:10 AM CDT Marcel Madrid MD HEMATOLOGY ORDERABLES Edited Performing Organization Address City/[facility] de Phone Number INTERFACE SYSTEM Refer to clinic/hospital department * (ABNORMAL) ALBUMIN LEVEL (02/26/2007 6:10 AM CDT) Pathologist [facility] ALBUMIN 3.3(L) 3.5 - 5.0 g/dL INTERFACE SYSTEM 02/26/2007 6:10 AM CDT Marcel Madrid MD CHEMISTRY ORDERABLES Edited Performing Organization Address City/[facility] Co de Phone Number INTERFACE SYSTEM Refer to clinic/hospital department * BASIC METABOLIC PANEL (02/26/2007 6:10 AM CDT) GLUCOSE 95 70 - 110 mg/dL INTERFACE SYSTEM BUN 18 9 - 20 mg/dL INTERFACE SYSTEM CREATININE 1.0 0.7 - 1.5 mg/dL INTERFACE SYSTEM SODIUM 137 136 - 145 mEq/L INTERFACE SYSTEM POTASSIUM 4.5 3.5 - 5.0 mEq/L INTERFACE SYSTEM CHLORIDE 104 95 - 110 mEq/L INTERFACE SYSTEM CO2 27 22 - 32 mmol/l INTERFACE SYSTEM CALCIUM 8.6 8.4 - 10.5 mg/dL INTERFACE SYSTEM ANION GAP 11 9 - 20 mEq/L INTERFACE SYSTEM OSMOLALITY, CALCULATED 285 275 - 295 mOsm/Kg INTERFACE SYSTEM 02/26/2007 6:10 AM CDT us Marcel Madrid MD CHEMISTRY ORDERABLES Edited Performing Organization Address [facility] Phone Number INTERFACE SYSTEM Refer to clinic/hospital department * (ABNORMAL) POC GLUCOSE (02/22/2007 6:51 AM CDT) GLUCOSE POC 114(H) 60 - 100 mg/dL INTERFACE SYSTEM COMMENT POC Follow Protocol INTERFACE SYSTEM 02/22/2007 6:51 AM CDT us Marcel Madrid MD POINT OF CARE TESTING Edited Performing Organization Address [facility] Phone Number INTERFACE SYSTEM Refer to clinic/hospital department * (ABNORMAL) POC GLUCOSE (02/21/2007 5:16 PM CDT) GLUCOSE POC 113(H) 60 - 100 mg/dL INTERFACE SYSTEM COMMENT POC Follow Protocol INTERFACE SYSTEM 02/21/2007 5:16 PM CDT us Marcel Madrid MD POINT OF CARE TESTING Edited Performing Organization Address [facility] Phone Number INTERFACE SYSTEM Refer to clinic/hospital department * (ABNORMAL) POC GLUCOSE (02/21/2007 6:44 AM CDT) GLUCOSE POC 109(H) 60 - 100 mg/dL INTERFACE SYSTEM COMMENT POC Follow Protocol INTERFACE SYSTEM 02/21/2007 6:44 AM CDT us Marcel Madrid MD POINT OF CARE TESTING Edited Performing Organization Address [facility] de Phone Number INTERFACE SYSTEM Refer to clinic/hospital department * (ABNORMAL) POC GLUCOSE (02/20/2007 9:20 PM CDT) GLUCOSE POC 149(H) 60 - 100 mg/dL INTERFACE SYSTEM 02/20/2007 9:20 PM CDT us Marcel Madrid MD POINT OF CARE TESTING Edited Performing Organization Address [facility] Phone Number INTERFACE SYSTEM Refer to clinic/hospital department * (ABNORMAL) POC GLUCOSE (02/20/2007 4:32 PM CDT) GLUCOSE POC 163(H) 60 - 100 mg/dL INTERFACE SYSTEM 02/20/2007 4:32 PM CDT us Marcel Madrid MD POINT OF CARE TESTING Edited Performing Organization Address [facility] Phone Number INTERFACE SYSTEM Refer to clinic/hospital department * (ABNORMAL) URINALYSIS MICROSCOPY ONLY (02/20/2007 3:02 PM CDT) WBC URINE 3-5(A) 0 - 2 INTERFACE SYSTEM RBC UA 26-40(A) 0 - 2 INTERFACE SYSTEM HYALINE CAST 3-5(A) 0 - 2 INTERFA CE SYSTEM BACTERIA UA None Seen None Seen INTERFAC E SYSTEM 02/20/2007 3:02 PM CDT us Marcel Madrid MD URINE ORDERABLES Edited Performing Organization Address [facility] de Phone Number INTERFACE SYSTEM Refer to clinic/hospital department * (ABNORMAL) URINALYSIS (02/20/2007 3:02 PM CDT) COLOR UA Yellow Straw INTERFACE SYSTEM CLARITY UA Clear Clear INTERFACE SYSTEM LEUKOCYTE ESTERASE UA Trace(A) NEGATIVE INTERFACE SYSTEM NITRITE UA NEGATIVE NEGATIVE INTERFACE SYSTEM PH UA 6.5 5.0 - 9.0 INTERFACE SYSTEM PROTEIN UA NEGATIVE NEGATIVE INTERFACE SYSTEM GLUCOSE UA NEGATIVE NEGATIVE INTERFACE SYSTEM KETONES UA NEGATIVE NEGATIVE INTERFACE SYSTEM UROBILINOGEN UA 1.0(A) 0.2 INTE RFACE SYSTEM BILIRUBIN UA NEGATIVE NEGATIVE INTERFA CE SYSTEM BLOOD UA Large(A) NEGATIVE INTERFACE SYSTEM SPECIFIC GRAVITY UA 1.020 1.005 - 1.030 INTERFACE SYSTEM MICRO EXAM Yes(A) No INTERFACE SYSTEM 02/20/2007 3:02 PM CDT us Marcel Madrid MD URINE ORDERABLES Edited Performing Organization Address City/[facility] Co de Phone Number INTERFACE SYSTEM Refer to clinic/hospital department * (ABNORMAL) POC GLUCOSE (02/20/2007 11:42 AM CDT) GLUCOSE POC 132(H) 60 - 100 mg/dL INTERFACE SYSTEM COMMENT POC Follow Protocol INTERFACE SYSTEM 02/20/2007 11:4 2 AM CDT Marcel Madrid MD POINT OF CARE TESTING Edited Performing Organization Address [facility] de Phone Number INTERFACE SYSTEM Refer to clinic/hospital department * (ABNORMAL) POC GLUCOSE (02/20/2007 7:05 AM CDT) GLUCOSE POC 113(H) 60 - 100 mg/dL INTERFACE SYSTEM 02/20/2007 7:05 AM CDT us Marcel Madrid MD POINT OF CARE TESTING Edited Performing Organization Address [facility] de Phone Number INTERFACE SYSTEM Refer to clinic/hospital department * (ABNORMAL) COMPREHENSIVE METABOLIC PANEL (02/20/2007 6:40 AM CDT) GLUCOSE 107 70 - 110 mg/dL INTERFACE SYSTEM BUN 12 9 - 20 mg/dL INTERFACE SYSTEM CREATININE 1.0 0.7 - 1.5 mg/dL INTERFACE SYSTEM SODIUM 140 136 - 145 mEq/L INTERFACE SYSTEM POTASSIUM 4.7 3.5 - 5.0 mEq/L INTERFACE SYSTEM CHLORIDE 107 95 - 110 mEq/L INTERFACE SYSTEM CO2 27 22 - 32 mmol/l INTERFACE SYSTEM CALCIUM 8.3(L) 8.4 - 10.5 mg/dL INTERFACE SYSTEM TOTAL PROTEIN 5.0(L) 6.3 - 8.2 g/dL INTERFACE SYSTEM ALBUMIN 2.9(L) 3.5 - 5.0 g/dL INTERFACE SYSTEM ALKALINE PHOSPHATASE 45 25 - 100 U/L INTERFACE SYSTEM AST 33 8 - 33 U/L INTERFACE SYSTEM ALT 34 4 - 36 IU/L INTERFACE SYSTEM BILIRUBIN TOTAL 0.5 0.3 - 1.2 mg/dL INTERFACE SYSTEM GLOBULIN (CALC) 2.1(L) 2.4 - 3.9 g/dL INTERFACE SYSTEM ALBUMIN/GLOBULIN RATIO 1.4 1.0 - 2.3 INTERFACE SYSTEM ANION GAP 11 9 - 20 mEq/L INTERFACE SYSTEM OSMOLALITY, CALCULATED 289 275 - 295 mOsm/Kg INTERFACE SYSTEM 02/20/2007 6:40 AM CDT us Marcel Madrid MD CHEMISTRY ORDERABLES Edited INTERFACE SYSTEM Refer to clinic/hospital department * (ABNORMAL) CBC WITH DIFFERENTIAL (02/20/2007 6:40 AM CDT) WBC 11.0 4.5 - 11.0 K/ul INTERFACE SYSTEM RBC 3.18(L) 4.60 - 6.20 Mil/ul INTERFACE SYSTEM HEMOGLOBIN 9.6(L) 14.0 - 18.0 g/dL INTERFACE SYSTEM HEMATOCRIT 29.2(L) 41.0 - 53.0 % INTERFACE SYSTEM MCV 91.8 84.0 - 103.0 Fl INTERFACE SYSTEM MCH 30.2 27.0 - 34.0 pg INTERFACE SYSTEM MCHC 32.9 30.0 - 35.0 g/dL INTERFACE SYSTEM RDW 14.4 11.0 - 14.5 % INTERFACE SYSTEM PLATELETS 181 140 - 440 K/ul INTERFACE SYSTEM MPV 10.3 8.9 - 12.8 Fl INTERFACE SYSTEM NEUTROPHILS 72.6 42.2 - 75.2 % INTERFACE SYSTEM LYMPHOCYTES 15.8(L) 24.0 - 44.0 % INTERFACE SYSTEM MONOCYTES 8.6 2.0 - 10.0 % INTERFACE SYSTEM EOSINOPHILS 2.5 0.0 - 7.0 % INTERFACE SYSTEM BASOPHILS 0.5 0.0 - 1.0 % INTERFACE SYSTEM NEUTROPHIL ABSOLUTE 8.0 2.0 - 8.0 K/ul INTERFACE SYSTEM LYMPHOCYTE ABSOLUTE 1.7 1.2 - 4.0 K/ul INTERFACE SYSTEM MONOCYTE ABSOLUTE 0.9(H) 0.1 - 0.6 K/ul INTERFACE SYSTEM EOSINOPHIL ABSOLUTE 0.3 0.0 - 0.7 K/ul INTERFACE SYSTEM BASOPHILS ABSOLUTE 0.1 0.0 - 0.2 K/ul INTERFACE SYSTEM 02/20/2007 6:40 AM CDT us Marcel Madrid MD HEMATOLOGY ORDERABLES Edited Performing Organization Address [facility] Phone Number INTERFACE SYSTEM Refer to clinic/hospital department * (ABNORMAL) POC GLUCOSE (02/19/2007 9:04 PM CDT) GLUCOSE POC 159(H) 60 - 100 mg/dL INTERFACE SYSTEM 02/19/2007 9:04 PM CDT us Marcel Madrid MD POINT OF CARE TESTING Edited Performing Organization Address [facility] Phone Number INTERFACE SYSTEM Refer to clinic/hospital department * (ABNORMAL) POC GLUCOSE (02/19/2007 6:44 PM CDT) GLUCOSE POC 195(H) 60 - 100 mg/dL INTERFACE SYSTEM 02/19/2007 6:44 PM CDT us Marcel Madrid MD POINT OF CARE TESTING Edited Performing Organization Address [facility] Phone Number INTERFACE SYSTEM Refer to clinic/hospital department * CTA CHEST W WO CONTRAST (02/19/2007 4:23 PM CDT) Anatomical Region Laterality Modality Chest Other 02/19/2007 4:23 PM CDT Narrative 02/19/2007 4:23 PM CDT Exam: CTA ChestDate/Time of Exam: Mar 15, 2007 5:28:13 PMHistory: Please see order comments. Technique: CTA of the chest was performed prior to and following the administration of intravenouscontrast 100 mL Optiray 350. Comparison made with the prior CT chest / abdomen / pelvis dated 02/13/07. Findings: Interval surgical fixation and reduction of T4-T5 fracture-dislocation. Artifact from thehardware obscures adjacent anatomy. There are pulmonary emboli involving all lobar arteries as wellas large embolism in the distal left pulmonary artery. Extensive segmental emboli are also present. There are small bilateral pleural effusions. There is airspace disease with a partially nodularcomponent in the superior segment of the right lower lobe. There are patchy areas of groundglassopacity and consolidation in the right upper lobe as well. There is straightening of theinterventricular septum with enlargement of the right ventricle consistent with right ventriculardecompensation. No thoracic adenopathy evident. Visualized upper abdomen is unremarkable. Impression: Extensive julian-lobar pulmonary emboli. CT features of right ventricular decompensation. Small bilateral pleural effusions. Patchy areas of consolidation right upper and lower lobes withdifferential diagnosis including infection, pulmonary infarct, aspiration and other less likelypossibilities. Interval reduction and fixation of thoracic spine. - Dictated By: Darrell La M.D. Electronically Signed By: Darrell La M.D. Date Signed: 03/16/07 AMA Procedure Note 06/09/2009 Exam: CTA ChestDate/Time of Exam: Mar 15, 2007 5:28:13 PMHistory: Please see order comments. Technique: CTA of the chest was performed prior to and following the administrationof intravenouscontrast 100 mL Optiray 350. Comparison made with the prior CT chest / abdomen / pelvis dated 02/13/07. Findings: Interval surgical fixation and reduction of T4-T5 fracture-dislocation.Artifact from thehardware obscures adjacent anatomy. There are pulmonary emboli involving all lobararteries as wellas large embolism in the distal left pulmonary artery. Extensive segmental emboliare also present. There are small bilateral pleural effusions. There is airspace diseasewith a partially nodularcomponent in the superior segment of the right lower lobe. There are patchy areas ofgroundglassopacity and consolidation in the right upper lobe as well. There is straightening oftheinterventricular septum with enlargement of the right ventricle consistent with rightventriculardecompensation. No thoracic adenopathy evident. Visualized upper abdomen is unremarkable. Impression: Extensive julian-lobar pulmonary emboli. CT features of right ventriculardecompensation. Small bilateral pleural effusions. Patchy areas of consolidation rightupper and lower lobes withdifferential diagnosis including infection, pulmonary infarct,aspiration and other less likelypossibilities. Interval reduction and fixation of thoracic spine. - Dictated By: Darrell La M.D. Electronically Signed By: Darrell La M.D. Date Signed: 03/16/07 AMA us Marcel Madrid MD CT ORDERABLES Final Result * XR THORACIC SPINE 3 VW (02/19/2007 4:23 PM CDT) Anatomical Region Laterality Modality Spine Other 02/19/2007 4:23 PM CDT Narrative 02/19/2007 4:23 PM CDT Exam: Spine - ThoracicDate/Time of Exam: Mar 15, 2007 5:26:00 PMHistory: Please see order comments. Findings: Compared with 02/16/2007, skin werner have been removed. There is stable appearance ofhardware fixation of the thoracic spine. Compression fractures are again noted without change. Impression: Stable exam. - Dictated By: Darrell La M.D. Electronically Signed By: Darrell La M.D. Date Signed: 03/16/07 Procedure Note 06/09/2009 Exam: Spine - ThoracicDate/Time of Exam: Mar 15, 2007 5:26:00 PMHistory: Please see order comments. Findings: Compared with 02/16/2007, skin werner have been removed. There is stableappearance ofhardware fixation of the thoracic spine. Compression fractures are again noted without change. Impression: Stable exam. - Dictated By: Darrell La M.D. Electronically Signed By: Darrell La M.D. Date Signed: 03/16/07 us Marcel Madrid MD DIAGNOSTIC IMAGING ORDERABLES F inal Result * XR SHOULDER 2+ VW RIGHT (02/19/2007 4:23 PM CDT) Anatomical Region Laterality Modality Upper Extremity Other 02/19/2007 4:23 PM CDT Narrative 02/19/2007 4:23 PM CDT Three views of the right shoulder were obtained. History is T4 paraplegia. Shoulder shows no acuteabnormality. No fracture or dislocation is seen. No significant degenerative changes areidentified. - Dictated By: Jagdeep Virgen M.D. Electronically Signed By: Jagdeep Virgen M.D. Date Signed: 02/21/07 AMA Procedure Note 06/08/2009 Three views of the right shoulder were obtained. History is T4 paraplegia.Shoulder shows no acuteabnormality. No fracture or dislocation is seen. No significantdegenerative changes areidentified. - Dictated By: Jagdeep Virgen M.D. Electronically Signed By: Jagdeep Virgen M.D. 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
--- OUTSIDE RECORDS SUMMARY | 2025-01-09 18:05 | XMS_ITS | Encounter Summary ---
Author Organization [facility] Address [address] [place] [address] Care Team Providers Care Beekeeper Name Role Phone Jonathan Pham MD Primary Care Provider [phone] Encounter Details Date Type Department Care Team (Late st Contact Info) Description 03/31/2007 Inpatient Historical HIS IN BED Awilda Ulloa MD [address] [address] Other Postoperative Infection (Primary Dx) Social History Tobacco Use Types Packs/Day Years Used Date Smoking Tobacco: Never Assessed Sex and Gender Information Value Date Recorded Sex Assigned at Not on file 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 Gender Identity Not on file Sexual Orientation Not on file documented as of this encounter Plan of Treatment Not on file documented as of this encounter Procedures Procedure Name Priority Date/Time Associated Diagnosis Comments CBC WITH DIFFERENTIAL Routine 04/06/2007 8:47 AM CDT PROTIME-INR Routine 04/06/2007 8:47 AM CDT COMPREHENSIVE METABOLIC PANEL Routine 04/06/2007 8:47 AM CDT PT AND APTT Routine 04/05/2007 6:36 AM CDT CBC WITH DIFFERENTIAL Routine 04/05/2007 6:36 AM CDT BASIC METABOLIC PANEL Routine 04/05/2007 6:36 AM CDT PT AND APTT Routine 04/04/2007 8:24 AM CDT CBC WITH DIFFERENTIAL Routine 04/04/2007 8:24 AM CDT COMPREHENSIVE METABOLIC PANEL Routine 04/04/2007 8:24 AM CDT VANCOMYCIN LEVEL PEAK Routine 04/03/2007 9:33 PM CDT VANCOMYCIN LEVEL TROUGH Routine 04/03/2007 7:25 PM CDT CBC WITH DIFFERENTIAL Routine 04/03/2007 6:58 AM CDT PTT Routine 04/03/2007 6:22 AM CDT PROTIME-INR Routine 04/03/2007 6:22 AM CDT COMPREHENSIVE METABOLIC PANEL Routine 04/03/2007 6:22 AM CDT CBC WITH DIFFERENTIAL Routine 04/02/2007 6:47 AM CDT BASIC METABOLIC PANEL Routine 04/02/2007 6:47 AM CDT PT AND APTT Routine 04/02/2007 6:34 AM CDT PROTIME-INR Routine 04/01/2007 3:54 PM CDT CBC WITH DIFFERENTIAL Routine 04/01/2007 8:12 AM CDT PTT Routine 04/01/2007 8:12 AM CDT PROTIME-INR Routine 04/01/2007 8:12 AM CDT BASIC METABOLIC PANEL Routine 04/01/2007 8:12 AM CDT documented in this encounter Results * PROTIME-INR (04/06/2007 8:47 AM CDT) Pathologist [facility] PROTIME 15.4 13.0 - 15.7 Secs INTERFACE SYSTEM Comment: As of 06 note change in normal range. INR 1.1 INTERFACE SYSTEM Comment: Expected Values for INR: DVT/PE Goal INR 2.5; range 2.0 - 3.0 Valve Replacement Tissue Goal INR 2.5; range 2.0 - 3.0 Mechanical Goal INR 3.0; range 2.5 - 3.5 POST-NC Goal INR 2.5; range 2.0 - 3.0 or Goal 3.0; range 2.5 - 3.5 Atrial Fibrillation Goal INR 2.5; range 2.0 - 3.0 Ischemic Stroke Goal INR 2.5; range 2.0 - 3.0 For additional information see Guidelines for Anticoagulation available from the pharmacy Michael Chaudhry D. 04/06/2007 8:47 AM CDT us Awilda Ulloa MD HEMATOLOGY ORDERABLES Edited INTERFACE SYSTEM Refer to clinic/hospital department * (ABNORMAL) CBC WITH DIFFERENTIAL (04/06/2007 8:47 AM CDT) [facility] WBC 5.2 4.5 - 11.0 K/ul INTERFACE SYSTEM RBC 3.61(L) 4.60 - 6.20 Mil/ul INTERFACE SYSTEM HEMOGLOBIN 9.0(L) 14.0 - 18.0 g/dL INTERFACE SYSTEM HEMATOCRIT 29.9(L) 41.0 - 53.0 % INTERFACE SYSTEM MCV 82.8(L) 84.0 - 103.0 Fl INTERFACE SYSTEM MCH 24.9(L) 27.0 - 34.0 pg INTERFACE SYSTEM MCHC 30.1 30.0 - 35.0 g/dL INTERFACE SYSTEM RDW 15.4(H) 11.0 - 14.5 % INTERFACE SYSTEM PLATELETS 280 140 - 440 K/ul INTERFACE SYSTEM MPV 9.4 8.9 - 12.8 Fl INTERFACE SYSTEM NEUTROPHILS 53.7 42.2 - 75.2 % INTERFACE SYSTEM LYMPHOCYTES 35.7 24.0 - 44.0 % INTERFACE SYSTEM MONOCYTES 5.0 2.0 - 10.0 % INTERFACE SYSTEM EOSINOPHILS 5.2 0.0 - 7.0 % INTERFACE SYSTEM BASOPHILS 0.4 0.0 - 1.0 % INTERFACE SYSTEM NEUTROPHIL ABSOLUTE 2.8 2.0 - 8.0 K/ul INTERFACE SYSTEM LYMPHOCYTE ABSOLUTE 1.8 1.2 - 4.0 K/ul INTERFACE SYSTEM MONOCYTE ABSOLUTE 0.3 0.1 - 0.6 K/ul INTERFACE SYSTEM EOSINOPHIL ABSOLUTE 0.3 0.0 - 0.7 K/ul INTERFACE SYSTEM BASOPHILS ABSOLUTE 0.0 0.0 - 0.2 K/ul INTERFACE SYSTEM 04/06/2007 8:47 AM CDT Awilda Ulloa MD HEMATOLOGY ORDERABLES Edited INTERFACE SYSTEM Refer to clinic/hospital department * (ABNORMAL) COMPREHENSIVE METABOLIC PANEL (04/06/2007 8:47 AM CDT) GLOBULIN (CALC) 3.2 2.4 - 3.9 g/dL INTERFACE SYSTEM ALBUMIN/GLOBULIN RATIO 1.1 1.0 - 2.3 INTERFACE SYSTEM GLUCOSE 152(H) 70 - 110 mg/dL INTERFACE SYSTEM BUN 9 9 - 20 mg/dL INTERFACE SYSTEM CREATININE 0.7 0.7 - 1.5 mg/dL INTERFACE SYSTEM SODIUM 140 136 - 145 mEq/L INTERFACE SYSTEM POTASSIUM 4.0 3.5 - 5.0 mEq/L INTERFACE SYSTEM CHLORIDE 103 95 - 110 mEq/L INTERFACE SYSTEM CO2 34(H) 22 - 32 mmol/l INTERFACE SYSTEM CALCIUM 9.7 8.4 - 10.5 mg/dL INTERFACE SYSTEM TOTAL PROTEIN 6.7 6.3 - 8.2 g/dL INTERFACE SYSTEM ALBUMIN 3.5 3.5 - 5.0 g/dL INTERFACE SYSTEM ALKALINE PHOSPHATASE 78 25 - 100 U/L INTERFACE SYSTEM AST 16 8 - 33 U/L INTERFACE SYSTEM ALT 18 4 - 36 IU/L INTERFACE SYSTEM BILIRUBIN TOTAL 0.2(L) 0.3 - 1.2 mg/dL INTERFACE SYSTEM ANION GAP 7(L) 9 - 20 mEq/L INTERFACE SYSTEM OSMOLALITY, CALCULATED 289 275 - 295 mOsm/Kg INTERFACE SYSTEM 04/06/2007 8:47 AM CDT Awilda Ulloa MD CHEMISTRY ORDERABLES Edited INTERFACE SYSTEM Refer to clinic/hospital department * (ABNORMAL) PT AND APTT (04/05/2007 6:36 AM CDT) PROTIME 15.6 13.0 - 15.7 Secs INTERFACE SYSTEM Comment: As of 06 note change in normal range. INR 1.1 INTERFACE SYSTEM Comment: Expected Values for INR: DVT/PE Goal INR 2.5; range 2.0 - 3.0 Valve Replacement Tissue Goal INR 2.5; range 2.0 - 3.0 Mechanical Goal INR 3.0; range 2.5 - 3.5 POST-NC Goal INR 2.5; range 2.0 - 3.0 or Goal 3.0; range 2.5 - 3.5 Atrial Fibrillation Goal INR 2.5; range 2.0 - 3.0 Ischemic Stroke Goal INR 2.5; range 2.0 - 3.0 For additional information see Guidelines for Anticoagulation available from the pharmacy Michael Chaudhry PTT 37.8(H) 21.6 - 35.6 Secs INTERFACE SYSTEM Comment: Therapeutic Range: Hi-level PE/DVT heparin protocol 80.1 -95.0 sec Lo-level PE/DVT heparin protocol 67.1 - 80.0 sec Cardiac Heparin Protocol 67.1 - 85.0 sec Neuro Heparin Protocol 67.1 - 80.0 sec As of 06/24/2006 note change in APTT Normal Range. 04/05/2007 6:36 AM CDT Awilda Ulloa MD HEMATOLOGY ORDERABLES Edited INTERFACE SYSTEM Refer to clinic/hospital department * (ABNORMAL) BASIC METABOLIC PANEL (04/05/2007 6:36 AM CDT) GLUCOSE 90 70 - 110 mg/dL INTERFACE SYSTEM BUN 9 9 - 20 mg/dL INTERFACE SYSTEM CREATININE 0.6(L) 0.7 - 1.5 mg/dL INTERFACE SYSTEM SODIUM 140 136 - 145 mEq/L INTERFACE SYSTEM POTASSIUM 4.1 3.5 - 5.0 mEq/L INTERFACE SYSTEM CHLORIDE 106 95 - 110 mEq/L INTERFACE SYSTEM CO2 28 22 - 32 mmol/l INTERFACE SYSTEM CALCIUM 9.4 8.4 - 10.5 mg/dL INTERFACE SYSTEM ANION GAP 10 9 - 20 mEq/L INTERFACE SYSTEM OSMOLALITY, CALCULATED 286 275 - 295 mOsm/Kg INTERFACE SYSTEM 04/05/2007 6:36 AM CDT us Awilda Ulloa MD CHEMISTRY ORDERABLES Edited INTERFACE SYSTEM Refer to clinic/hospital department * (ABNORMAL) CBC WITH DIFFERENTIAL (04/05/2007 6:36 AM CDT) WBC 5.9 4.5 - 11.0 K/ul INTERFACE SYSTEM RBC 3.44(L) 4.60 - 6.20 Mil/ul INTERFACE SYSTEM HEMOGLOBIN 8.7(L) 14.0 - 18.0 g/dL INTERFACE SYSTEM HEMATOCRIT 28.4(L) 41.0 - 53.0 % INTERFACE SYSTEM MCV 82.6(L) 84.0 - 103.0 Fl INTERFACE SYSTEM MCH 25.3(L) 27.0 - 34.0 pg INTERFACE SYSTEM MCHC 30.6 30.0 - 35.0 g/dL INTERFACE SYSTEM RDW 15.5(H) 11.0 - 14.5 % INTERFACE SYSTEM PLATELETS 311 140 - 440 K/ul INTERFACE SYSTEM MPV 9.6 8.9 - 12.8 Fl INTERFACE SYSTEM NEUTROPHILS 51.5 42.2 - 75.2 % INTERFACE SYSTEM LYMPHOCYTES 33.8 24.0 - 44.0 % INTERFACE SYSTEM MONOCYTES 9.3 2.0 - 10.0 % INTERFA CE SYSTEM EOSINOPHILS 5.2 0.0 - 7.0 % INTERF MONA SYSTEM BASOPHILS 0.2 0.0 - 1.0 % INTERFAC E SYSTEM NEUTROPHIL ABSOLUTE 3.1 2.0 - 8.0 K/ul INTERFACE SYSTEM LYMPHOCYTE ABSOLUTE 2.0 1.2 - 4.0 K/ul INTERFACE SYSTEM MONOCYTE ABSOLUTE 0.6 0.1 - 0.6 K/ul INTERFACE SYSTEM EOSINOPHIL ABSOLUTE 0.3 0.0 - 0.7 K/ul INTERFACE SYSTEM BASOPHILS ABSOLUTE 0.0 0.0 - 0.2 K/ul INTERFACE SYSTEM PERIPHERAL BLOOD SMEAR REVIEW Automated Diff Automated Diff INTERFACE SYSTEM 04/05/2007 6:36 AM CDT Awilda Ulloa MD HEMATOLOGY ORDERABLES Edited INTERFACE SYSTEM Refer to clinic/hospital department * (ABNORMAL) PT AND APTT (04/04/2007 8:24 AM CDT) PROTIME 15.5 13.0 - 15.7 Secs INTERFACE SYSTEM Comment: As of 06 note change in normal range. INR 1.1 INTERFACE SYSTEM Comment: Expected Values for INR: DVT/PE Goal INR 2.5; range 2.0 - 3.0 Valve Replacement Tissue Goal INR 2.5; range 2.0 - 3.0 Mechanical Goal INR 3.0; range 2.5 - 3.5 POST-NC Goal INR 2.5; range 2.0 - 3.0 or Goal 3.0; range 2.5 - 3.5 Atrial Fibrillation Goal INR 2.5; range 2.0 - 3.0 Ischemic Stroke Goal INR 2.5; range 2.0 - 3.0 For additional information see Guidelines for Anticoagulation available from the pharmacy Michael Chaudhry PTT 36.9(H) 21.6 - 35.6 Secs INTERFACE SYSTEM Comment: Therapeutic Range: Hi-level PE/DVT heparin protocol 80.1 -95.0 sec Lo-level PE/DVT heparin protocol 67.1 - 80.0 sec Cardiac Heparin Protocol 67.1 - 85.0 sec Neuro Heparin Protocol 67.1 - 80.0 sec As of 06/24/2006 note change in APTT Normal Range. 04/04/2007 8:24 AM CDT Awilda Ulloa MD HEMATOLOGY ORDERABLES Edited INTERFACE SYSTEM Refer to clinic/hospital department * (ABNORMAL) COMPREHENSIVE METABOLIC PANEL (04/04/2007 8:24 AM CDT) GLUCOSE 91 70 - 110 mg/dL INTERFACE SYSTEM BUN 9 9 - 20 mg/dL INTERFACE SYSTEM CREATININE 0.7 0.7 - 1.5 mg/dL INTERFACE SYSTEM SODIUM 140 136 - 145 mEq/L INTERFACE SYSTEM POTASSIUM 4.5 3.5 - 5.0 mEq/L INTERFACE SYSTEM CHLORIDE 106 95 - 110 mEq/L INTERFACE SYSTEM CO2 28 22 - 32 mmol/l INTERFACE SYSTEM CALCIUM 9.7 8.4 - 10.5 mg/dL INTERFACE SYSTEM TOTAL PROTEIN 6.3 6.3 - 8.2 g/dL INTERFACE SYSTEM ALBUMIN 3.4(L) 3.5 - 5.0 g/dL INTERFACE SYSTEM ALKALINE PHOSPHATASE 71 25 - 100 U/L INTERFACE SYSTEM AST 20 8 - 33 U/L INTERFACE SYSTEM ALT 20 4 - 36 IU/L INTERFACE SYSTEM BILIRUBIN TOTAL 0.2(L) 0.3 - 1.2 mg/dL INTERFACE SYSTEM GLOBULIN (CALC) 2.9 2.4 - 3.9 g/dL INTERFACE SYSTEM ALBUMIN/GLOBULIN RATIO 1.2 1.0 - 2.3 INTERFACE SYSTEM ANION GAP 11 9 - 20 mEq/L INTERFACE SYSTEM OSMOLALITY, CALCULATED 287 275 - 295 mOsm/Kg INTERFACE SYSTEM 04/04/2007 8:24 AM CDT us Awilda Ulloa MD CHEMISTRY ORDERABLES Edited INTERFACE SYSTEM Refer to clinic/hospital department * (ABNORMAL) CBC WITH DIFFERENTIAL (04/04/2007 8:24 AM CDT) WBC 5.8 4.5 - 11.0 K/ul INTERFACE SYSTEM RBC 3.78(L) 4.60 - 6.20 Mil/ul INTERFACE SYSTEM HEMOGLOBIN 9.7(L) 14.0 - 18.0 g/dL INTERFACE SYSTEM HEMATOCRIT 31.3(L) 41.0 - 53.0 % INTERFACE SYSTEM MCV 82.8(L) 84.0 - 103.0 Fl INTERFACE SYSTEM MCH 25.7(L) 27.0 - 34.0 pg INTERFACE SYSTEM MCHC 31.0 30.0 - 35.0 g/dL INTERFACE SYSTEM RDW 15.4(H) 11.0 - 14.5 % INTERFACE SYSTEM PLATELETS 323 140 - 440 K/ul INTERFACE SYSTEM MPV 9.8 8.9 - 12.8 Fl INTERFACE SYSTEM NEUTROPHILS 51.2 42.2 - 75.2 % INTERFACE SYSTEM LYMPHOCYTES 36.5 24.0 - 44.0 % INTERFACE SYSTEM MONOCYTES 6.9 2.0 - 10.0 % INTERFACE SYSTEM EOSINOPHILS 5.1 0.0 - 7.0 % INTERFACE SYSTEM BASOPHILS 0.3 0.0 - 1.0 % INTERFACE SYSTEM NEUTROPHIL ABSOLUTE 3.0 2.0 - 8.0 K/ul INTERFACE SYSTEM LYMPHOCYTE ABSOLUTE 2.1 1.2 - 4.0 K/ul INTERFACE SYSTEM MONOCYTE ABSOLUTE 0.4 0.1 - 0.6 K/ul INTERFACE SYSTEM EOSINOPHIL ABSOLUTE 0.3 0.0 - 0.7 K/ul INTERFACE SYSTEM BASOPHILS ABSOLUTE 0.0 0.0 - 0.2 K/ul INTERFACE SYSTEM 04/04/2007 8:24 AM CDT Awilda Ulloa MD HEMATOLOGY ORDERABLES Edited Performing Organization Address City/[facility] de Phone Number INTERFACE SYSTEM Refer to clinic/hospital department * VANCOMYCIN LEVEL PEAK (04/03/2007 9:33 PM CDT) Pathologist [facility] VANCOMYCIN, PEAK 28.6 25.0 - 40.0 mcg/mL INTERFACE SYSTEM 04/03/2007 9:33 PM CDT Awilda Ulloa MD CHEMISTRY ORDERABLES Edited Performing Organization Address [facility] de Phone Number INTERFACE SYSTEM Refer to clinic/hospital department * VANCOMYCIN LEVEL TROUGH (04/03/2007 7:25 PM CDT) Pathologist [facility] VANCOMYCIN, TROUGH 10.3 5.0 - 15.0 mcg/mL INTERFACE SYSTEM 04/03/2007 7:25 PM CDT Awilda Ulloa MD CHEMISTRY ORDERABLES Edited Performing Organization Address [facility] de Phone Number INTERFACE SYSTEM Refer to clinic/hospital department * (ABNORMAL) CBC WITH DIFFERENTIAL (04/03/2007 6:58 AM CDT) Pathologist [facility] WBC 6.8 4.5 - 11.0 K/ul INTERFACE SYSTEM RBC 3.55(L) 4.60 - 6.20 Mil/ul INTERFACE SYSTEM HEMOGLOBIN 9.0(L) 14.0 - 18.0 g/dL INTERFACE SYSTEM HEMATOCRIT 29.6(L) 41.0 - 53.0 % INTERFACE SYSTEM MCV 83.4(L) 84.0 - 103.0 Fl INTERFACE SYSTEM MCH 25.4(L) 27.0 - 34.0 pg INTERFACE SYSTEM MCHC 30.4 30.0 - 35.0 g/dL INTERFACE SYSTEM RDW 15.6(H) 11.0 - 14.5 % INTERFACE SYSTEM PLATELETS 317 140 - 440 K/ul INTERFACE SYSTEM MPV 9.7 8.9 - 12.8 Fl INTERFACE SYSTEM NEUTROPHILS 50.4 42.2 - 75.2 % INTERFACE SYSTEM LYMPHOCYTES 35.3 24.0 - 44.0 % INTERFACE SYSTEM MONOCYTES 10.1(H) 2.0 - 10.0 % INTERFACE SYSTEM EOSINOPHILS 3.8 0.0 - 7.0 % INTERFACE SYSTEM BASOPHILS 0.4 0.0 - 1.0 % INTERFACE SYSTEM NEUTROPHIL ABSOLUTE 3.4 2.0 - 8.0 K/ul INTERFACE SYSTEM LYMPHOCYTE ABSOLUTE 2.4 1.2 - 4.0 K/ul INTERFACE SYSTEM MONOCYTE ABSOLUTE 0.7(H) 0.1 - 0.6 K/ul INTERFACE SYSTEM EOSINOPHIL ABSOLUTE 0.3 0.0 - 0.7 K/ul INTERFACE SYSTEM BASOPHILS ABSOLUTE 0.0 0.0 - 0.2 K/ul INTERFACE SYSTEM 04/03/2007 6:58 AM CDT us Awilda Ulloa MD HEMATOLOGY ORDERABLES Edited Performing Organization Address City/[facility] de Phone Number INTERFACE SYSTEM Refer to clinic/hospital department * (ABNORMAL) PTT (04/03/2007 6:22 AM CDT) PTT 39.7(H) 21.6 - 35.6 Secs INTERFACE SYSTEM Comment: Therapeutic Range: Hi-level PE/DVT heparin protocol 80.1 -95.0 sec Lo-level PE/DVT heparin protocol 67.1 - 80.0 sec Cardiac Heparin Protocol 67.1 - 85.0 sec Neuro Heparin Protocol 67.1 - 80.0 sec As of 06/24/2006 note change in APTT Normal Range. 04/03/2007 6:22 AM CDT us Awilda Ulloa MD HEMATOLOGY ORDERABLES Edited INTERFACE SYSTEM Refer to clinic/hospital department * (ABNORMAL) PROTIME-INR (04/03/2007 6:22 AM CDT) PROTIME 16.7(H) 13.0 - 15.7 Secs INTERFACE SYSTEM Comment: As of 06 note change in normal range. INR 1.2 INTERFACE SYSTEM Comment: Expected Values for INR: DVT/PE Goal INR 2.5; range 2.0 - 3.0 Valve Replacement Tissue Goal INR 2.5; range 2.0 - 3.0 Mechanical Goal INR 3.0; range 2.5 - 3.5 POST-NC Goal INR 2.5; range 2.0 - 3.0 or Goal 3.0; range 2.5 - 3.5 Atrial Fibrillation Goal INR 2.5; range 2.0 - 3.0 Ischemic Stroke Goal INR 2.5; range 2.0 - 3.0 For additional information see Guidelines for Anticoagulation available from the pharmacy Janie Walls Pharm D. 04/03/2007 6:22 AM CDT us Awilda Ulloa MD HEMATOLOGY ORDERABLES Edited INTERFACE SYSTEM Refer to clinic/hospital department * (ABNORMAL) COMPREHENSIVE METABOLIC PANEL (04/03/2007 6:22 AM CDT) GLUCOSE 96 70 - 110 mg/dL INTERFACE SYSTEM BUN 10 9 - 20 mg/dL INTERFACE SYSTEM CREATININE 0.7 0.7 - 1.5 mg/dL INTERFACE SYSTEM SODIUM 140 136 - 145 mEq/L INTERFACE SYSTEM POTASSIUM 4.5 3.5 - 5.0 mEq/L INTERFACE SYSTEM CHLORIDE 102 95 - 110 mEq/L INTERFACE SYSTEM CO2 30 22 - 32 mmol/l INTERFACE SYSTEM CALCIUM 9.5 8.4 - 10.5 mg/dL INTERFACE SYSTEM TOTAL PROTEIN 6.4 6.3 - 8.2 g/dL INTERFACE SYSTEM ALBUMIN 3.4(L) 3.5 - 5.0 g/dL INTERFACE SYSTEM ALKALINE PHOSPHATASE 77 25 - 100 U/L INTERFACE SYSTEM AST 15 8 - 33 U/L INTERFACE SYSTEM ALT 18 4 - 36 IU/L INTERFACE SYSTEM BILIRUBIN TOTAL 0.2(L) 0.3 - 1.2 mg/dL INTERFACE SYSTEM GLOBULIN (CALC) 3.0 2.4 - 3.9 g/dL INTERFACE SYSTEM ALBUMIN/GLOBULIN RATIO 1.1 1.0 - 2.3 INTERFACE SYSTEM ANION GAP 13 9 - 20 mEq/L INTERFACE SYSTEM OSMOLALITY, CALCULATED 288 275 - 295 mOsm/Kg INTERFACE SYSTEM 04/03/2007 6:22 AM CDT Awilda Ulloa MD CHEMISTRY ORDERABLES Edited Performing Organization Address [facility] Phone Number INTERFACE SYSTEM Refer to clinic/hospital department * (ABNORMAL) BASIC METABOLIC PANEL (04/02/2007 6:47 AM CDT) Pathologist [facility] GLUCOSE 96 70 - 110 mg/dL INTERFACE SYSTEM BUN 8(L) 9 - 20 mg/dL INTERFACE SYSTEM CREATININE 0.7 0.7 - 1.5 mg/dL INTERFACE SYSTEM SODIUM 140 136 - 145 mEq/L INTERFACE SYSTEM POTASSIUM 5.0 3.5 - 5.0 mEq/L INTERFACE SYSTEM Comment:Specimen slightly he molyzed CHLORIDE 105 95 - 110 mEq/L INTERFACE SYSTEM CO2 31 22 - 32 mmol/l INTERFACE SYSTEM CALCIUM 9.1 8.4 - 10.5 mg/dL INTERFACE SYSTEM ANION GAP 9 9 - 20 mEq/L INTERFACE SYSTEM OSMOLALITY, CALCULATED 288 275 - 295 mOsm/Kg INTERFACE SYSTEM 04/02/2007 6:47 AM CDT Awilda Ulloa MD CHEMISTRY ORDERABLES Edited Performing Organization Address [facility] Phone Number INTERFACE SYSTEM Refer to clinic/hospital department * (ABNORMAL) CBC WITH DIFFERENTIAL (04/02/2007 6:47 AM CDT) WBC 6.9 4.5 - 11.0 K/ul INTERFACE SYSTEM RBC 3.73(L) 4.60 - 6.20 Mil/ul INTERFACE SYSTEM HEMOGLOBIN 9.5(L) 14.0 - 18.0 g/dL INTERFACE SYSTEM HEMATOCRIT 31.4(L) 41.0 - 53.0 % INTERFACE SYSTEM MCV 84.2 84.0 - 103.0 Fl INTERFACE SYSTEM MCH 25.5(L) 27.0 - 34.0 pg INTERFACE SYSTEM MCHC 30.3 30.0 - 35.0 g/dL INTERFACE SYSTEM RDW 15.6(H) 11.0 - 14.5 % INTERFACE SYSTEM PLATELETS 306 140 - 440 K/ul INTERFACE SYSTEM MPV 9.4 8.9 - 12.8 Fl INTERFACE SYSTEM NEUTROPHILS 62.8 42.2 - 75.2 % INTERFACE SYSTEM LYMPHOCYTES 25.3 24.0 - 44.0 % INTERFACE SYSTEM MONOCYTES 9.0 2.0 - 10.0 % INTERFACE SYSTEM EOSINOPHILS 2.6 0.0 - 7.0 % INTERFACE SYSTEM BASOPHILS 0.3 0.0 - 1.0 % INTERFACE SYSTEM NEUTROPHIL ABSOLUTE 4.4 2.0 - 8.0 K/ul INTERFACE SYSTEM LYMPHOCYTE ABSOLUTE 1.8 1.2 - 4.0 K/ul INTERFACE SYSTEM MONOCYTE ABSOLUTE 0.6 0.1 - 0.6 K/ul INTERFACE SYSTEM EOSINOPHIL ABSOLUTE 0.2 0.0 - 0.7 K/ul INTERFACE SYSTEM BASOPHILS ABSOLUTE 0.0 0.0 - 0.2 K/ul INTERFACE SYSTEM 04/02/2007 6:47 AM CDT us Awilda Ulloa MD HEMATOLOGY ORDERABLES Edited INTERFACE SYSTEM Refer to clinic/hospital department * (ABNORMAL) PT AND APTT (04/02/2007 6:34 AM CDT) PROTIME 16.7(H) 13.0 - 15.7 Secs INTERFACE SYSTEM Comment: As of 06 note change in normal range. INR 1.2 INTERFACE SYSTEM Comment: Expected Values for INR: DVT/PE Goal INR 2.5; range 2.0 - 3.0 Valve Replacement Tissue Goal INR 2.5; range 2.0 - 3.0 Mechanical Goal INR 3.0; range 2.5 - 3.5 POST-NC Goal INR 2.5; range 2.0 - 3.0 or Goal 3.0; range 2.5 - 3.5 Atrial Fibrillation Goal INR 2.5; range 2.0 - 3.0 Ischemic Stroke Goal INR 2.5; range 2.0 - 3.0 For additional information see Guidelines for Anticoagulation available from the pharmacy Michael Chaudhry PTT 38.7(H) 21.6 - 35.6 Secs INTERFACE SYSTEM Comment: Therapeutic Range: Hi-level PE/DVT heparin protocol 80.1 -95.0 sec Lo-level PE/DVT heparin protocol 67.1 - 80.0 sec Cardiac Heparin Protocol 67.1 - 85.0 sec Neuro Heparin Protocol 67.1 - 80.0 sec As of 06/24/2006 note change in APTT Normal Range. 04/02/2007 6:34 AM CDT Awilda Ulloa MD HEMATOLOGY ORDERABLES Edited Performing Organization Address City/[facility] de Phone Number INTERFACE SYSTEM Refer to clinic/hospital department * (ABNORMAL) PROTIME-INR (04/01/2007 3:54 PM CDT) PROTIME 17.2(H) 13.0 - 15.7 Secs INTERFACE SYSTEM Comment: As of 06 note change in normal range. INR 1.3 INTERFACE SYSTEM Comment: Expected Values for INR: DVT/PE Goal INR 2.5; range 2.0 - 3.0 Valve Replacement Tissue Goal INR 2.5; range 2.0 - 3.0 Mechanical Goal INR 3.0; range 2.5 - 3.5 POST-NC Goal INR 2.5; range 2.0 - 3.0 or Goal 3.0; range 2.5 - 3.5 Atrial Fibrillation Goal INR 2.5; range 2.0 - 3.0 Ischemic Stroke Goal INR 2.5; range 2.0 - 3.0 For additional information see Guidelines for Anticoagulation available from the pharmacy [facility]. 04/01/2007 3:54 PM CDT Awilda Ulloa MD HEMATOLOGY ORDERABLES Edited Performing Organization Address City/[facility] Co de Phone Number INTERFACE SYSTEM Refer to clinic/hospital department * (ABNORMAL) PTT (04/01/2007 8:12 AM CDT) PTT 36.5(H) 21.6 - 35.6 Secs INTERFACE SYSTEM Comment: Therapeutic Range: Hi-level PE/DVT heparin protocol 80.1 -95.0 sec Lo-level PE/DVT heparin protocol 67.1 - 80.0 sec Cardiac Heparin Protocol 67.1 - 85.0 sec Neuro Heparin Protocol 67.1 - 80.0 sec As of 06/24/2006 note change in APTT Normal Range. 04/01/2007 8:12 AM CDT Awilda Ulloa MD HEMATOLOGY ORDERABLES Edited Performing Organization Address City/[facility] de Phone Number INTERFACE SYSTEM Refer to clinic/hospital department * (ABNORMAL) PROTIME-INR (04/01/2007 8:12 AM CDT) PROTIME 18.3(H) 13.0 - 15.7 Secs INTERFACE SYSTEM Comment: As of 06 note change in normal range. INR 1.4 INTERFACE SYSTEM Comment: Expected Values for INR: DVT/PE Goal INR 2.5; range 2.0 - 3.0 Valve Replacement Tissue Goal INR 2.5; range 2.0 - 3.0 Mechanical Goal INR 3.0; range 2.5 - 3.5 POST-NC Goal INR 2.5; range 2.0 - 3.0 or Goal 3.0; range 2.5 - 3.5 Atrial Fibrillation Goal INR 2.5; range 2.0 - 3.0 Ischemic Stroke Goal INR 2.5; range 2.0 - 3.0 For additional information see Guidelines for Anticoagulation available from the pharmacy Michael Chaudhry. 04/01/2007 8:12 AM CDT Awilda Ulloa MD HEMATOLOGY ORDERABLES Edited Performing Organization Address [facility] de Phone Number INTERFACE SYSTEM Refer to clinic/hospital department * (ABNORMAL) BASIC METABOLIC PANEL (04/01/2007 8:12 AM CDT) GLUCOSE 115(H) 70 - 110 mg/dL INTERFACE SYSTEM BUN 10 9 - 20 mg/dL INTERFACE SYSTEM CREATININE 0.7 0.7 - 1.5 mg/dL INTERFACE SYSTEM SODIUM 138 136 - 145 mEq/L INTERFACE SYSTEM POTASSIUM 4.1 3.5 - 5.0 mEq/L INTERFACE SYSTEM CHLORIDE 101 95 - 110 mEq/L INTERFACE SYSTEM CO2 28 22 - 32 mmol/l INTERFACE SYSTEM CALCIUM 9.4 8.4 - 10.5 mg/dL INTERFACE SYSTEM ANION GAP 13 9 - 20 mEq/L INTERFACE SYSTEM OSMOLALITY, CALCULATED 284 275 - 295 mOsm/Kg INTERFACE SYSTEM 04/01/2007 8:12 AM CDT us Awilda Ulloa MD CHEMISTRY ORDERABLES Edited INTERFACE SYSTEM Refer to clinic/hospital department * (ABNORMAL) CBC WITH DIFFERENTIAL (04/01/2007 8:12 AM CDT) WBC 7.1 4.5 - 11.0 K/ul INTERFACE SYSTEM RBC 4.13(L) 4.60 - 6.20 Mil/ul INTERFACE SYSTEM HEMOGLOBIN 10.6(L) 14.0 - 18.0 g/dL INTERFACE SYSTEM HEMATOCRIT 34.0(L) 41.0 - 53.0 % INTERFACE SYSTEM MCV 82.3(L) 84.0 - 103.0 Fl INTERFACE SYSTEM MCH 25.7(L) 27.0 - 34.0 pg INTERFACE SYSTEM MCHC 31.2 30.0 - 35.0 g/dL INTERFACE SYSTEM RDW 15.8(H) 11.0 - 14.5 % INTERFACE SYSTEM PLATELETS 345 140 - 440 K/ul INTERFACE SYSTEM MPV 9.6 8.9 - 12.8 Fl INTERFACE SYSTEM NEUTROPHILS 59.3 42.2 - 75.2 % INTERFACE SYSTEM LYMPHOCYTES 29.0 24.0 - 44.0 % INTERFACE SYSTEM MONOCYTES 9.0 2.0 - 10.0 % INTERFACE SYSTEM EOSINOPHILS 2.4 0.0 - 7.0 % INTERFACE SYSTEM BASOPHILS 0.3 0.0 - 1.0 % INTERFACE SYSTEM NEUTROPHIL ABSOLUTE 4.2 2.0 - 8.0 K/ul INTERFACE SYSTEM LYMPHOCYTE ABSOLUTE 2.1 1.2 - 4.0 K/ul INTERFACE SYSTEM MONOCYTE ABSOLUTE 0.6 0.1 - 0.6 K/ul INTERFACE SYSTEM EOSINOPHIL ABSOLUTE 0.2 0.0 - 0.7 K/ul INTERFACE SYSTEM BASOPHILS ABSOLUTE 0.0 0.0 - 0.2 K/ul INTERFACE SYSTEM 04/01/2007 8:12 AM CDT us Awilda Ulloa MD HEMATOLOGY ORDERABLES Edited INTERFACE SYSTEM Refer to clinic/hospital department documented in this encounter Visit Diagnoses Diagnosis Other postoperative infection- Primary documented in this encounter Additional Health Concerns Infection Onset Date Last Indicated Resolved Time R/O COVID-19 08/19/2020 08/19/2020 08/20/2020 1:44 PM [employer] OPER[employer] documented as of this encounter Care Teams Beekeeper Relationship Specialty Start Date End Date Jonathan Pham MD [address] [phone] PCP - General Family Practice 03/01/18 documented as of this encounter
--- OUTSIDE RECORDS SUMMARY | 2025-01-09 18:05 | XMS_ITS | Encounter Summary ---
Author Organization [facility] Address [address] [place] [address] Care Team Providers Care Truck Hopper Name Role Phone Jonathan Pham MD Primary Care Provider [phone] Encounter Details Date Type Department Care Team (Late st Contact Info) Description 02/13/2007 Inpatient Historical HIS IN BED Awilda Ulloa MD [address] [address] Kvng Braga MD NO ADDRESS ON FILE Closed Fracture of T1-T6 Level with Complete Lesion of Cord (Primary Dx) Social History Tobacco Use Types Packs/Day Years Used Date Smoking Tobacco: Never Assessed Sex and Gender Information Value Date Recorded Sex Assigned at Not on file Legal Sex Male 6:19 AM [employer] Gender Identity Not on file Sexual Orientation Not on file documented as of this encounter Plan of Treatment Not on file documented as of this encounter Procedures Procedure Name Priority Date/Time Associated Diagnosis Comments POC GLUCOSE Routine 02/19/2007 11:19 AM CDT POC GLUCOSE Routine 02/19/2007 5:34 AM CDT POC GLUCOSE Routine 02/18/2007 8:29 PM CDT POC GLUCOSE Routine 02/18/2007 5:06 PM CDT POC GLUCOSE Routine 02/18/2007 5:02 PM CDT HEMOGLOBIN AND HEMATOCRIT Routine 02/18/2007 1:30 PM CDT POC GLUCOSE Routine 02/18/2007 11:35 AM CDT POC GLUCOSE Routine 02/18/2007 6:10 AM CDT CBC WITH DIFFERENTIAL Routine 02/18/2007 5:50 AM CDT BASIC METABOLIC PANEL Routine 02/18/2007 5:50 AM CDT POC GLUCOSE Routine 02/17/2007 10:25 PM CDT POC GLUCOSE Routine 02/17/2007 4:16 PM CDT POC GLUCOSE Routine 02/17/2007 12:21 PM CDT POC GLUCOSE Routine 02/16/2007 9:53 PM CDT POC GLUCOSE Routine 02/16/2007 4:03 PM CDT POC GLUCOSE Routine 02/16/2007 10:53 AM CDT POC GLUCOSE Routine 02/16/2007 7:21 AM CDT CBC WITH DIFFERENTIAL Routine 02/16/2007 4:35 AM CDT BASIC METABOLIC PANEL Routine 02/16/2007 4:35 AM CDT POC GLUCOSE Routine 02/15/2007 8:30 PM CDT POC GLUCOSE Routine 02/15/2007 4:16 PM CDT HEMOGLOBIN AND HEMATOCRIT Routine 02/15/2007 1:22 PM CDT POC BLOOD GAS, LYTES AND H+H Routine 02/15/2007 1:04 PM CDT POC BLOOD GAS, LYTES AND H+H Routine 02/15/2007 11:16 AM CDT CBC WITH DIFFERENTIAL Routine 02/15/2007 5:42 AM CDT BASIC METABOLIC PANEL Routine 02/15/2007 5:42 AM CDT POC GLUCOSE Routine 02/15/2007 5:28 AM CDT POC GLUCOSE Routine 02/14/2007 4:37 PM CDT POC GLUCOSE Routine 02/14/2007 12:34 PM CDT PT AND APTT Routine 02/14/2007 4:28 AM CDT CBC WITH DIFFERENTIAL Routine 02/14/2007 4:28 AM CDT BASIC METABOLIC PANEL Routine 02/14/2007 4:28 AM CDT POC GLUCOSE Routine 02/13/2007 11:24 PM CDT CBC WITH DIFFERENTIAL Routine 02/13/2007 8:38 PM CDT PROTIME-INR Routine 02/13/2007 8:38 PM CDT ETHANOL LEVEL Routine 02/13/2007 8:38 PM CDT BASIC METABOLIC PANEL Routine 02/13/2007 8:38 PM CDT documented in this encounter Results * (ABNORMAL) POC GLUCOSE (02/19/2007 11:19 AM CDT) GLUCOSE POC 118(H) 60 - 100 mg/dL INTERFACE SYSTEM 02/19/2007 11:1 9 AM CDT us Kvng Braga MD POINT OF CARE TESTING Edite d INTERFACE SYSTEM Refer to clinic/hospital department * (ABNORMAL) POC GLUCOSE (02/19/2007 5:34 AM CDT) GLUCOSE POC 101(H) 60 - 100 mg/dL INTERFACE SYSTEM 02/19/2007 5:34 AM CDT us Knvg Braga MD POINT OF CARE TESTING Edite d Performing Organization Address City/[facility] [place] Phone Number INTERFACE SYSTEM Refer to clinic/hospital department * (ABNORMAL) POC GLUCOSE (02/18/2007 8:29 PM CDT) GLUCOSE POC 120(H) 60 - 100 mg/dL INTERFACE SYSTEM 02/18/2007 8:29 PM CDT us Kvng Braga MD POINT OF CARE TESTING Edite d Performing Organization Address [facility] Phone Number INTERFACE SYSTEM Refer to clinic/hospital department * (ABNORMAL) POC GLUCOSE (02/18/2007 5:06 PM CDT) GLUCOSE POC 106(H) 60 - 100 mg/dL INTERFACE SYSTEM 02/18/2007 5:06 PM CDT us Kvng Braga MD POINT OF CARE TESTING Edite d Performing Organization Address [facility] Phone Number INTERFACE SYSTEM Refer to clinic/hospital department * POC GLUCOSE (02/18/2007 5:02 PM CDT) GLUCOSE POC 71 60 - 100 mg/dL INTERFACE SYSTEM 02/18/2007 5:02 PM CDT Result Brianna Braga MD POINT OF CARE TESTING Edite d Performing Organization Address City/[facility] de Phone Number INTERFACE SYSTEM Refer to clinic/hospital department * (ABNORMAL) HEMOGLOBIN AND HEMATOCRIT (02/18/2007 1:30 PM CDT) HEMOGLOBIN 9.3(L) 14.0 - 18.0 g/dL INTERFACE SYSTEM HEMATOCRIT 27.9(L) 41.0 - 53.0 % INTERFACE SYSTEM 02/18/2007 1:30 PM CDT us Kvng Braga MD HEMATOLOGY ORDERABLES Edite d Performing Organization Address [facility] Phone Number INTERFACE SYSTEM Refer to clinic/hospital department * (ABNORMAL) POC GLUCOSE (02/18/2007 11:35 AM CDT) GLUCOSE POC 111(H) 60 - 100 mg/dL INTERFACE SYSTEM 02/18/2007 11:3 5 AM CDT us Kvng Braga MD POINT OF CARE TESTING Edite d Performing Organization Address [facility] Phone Number INTERFACE SYSTEM Refer to clinic/hospital department * POC GLUCOSE (02/18/2007 6:10 AM CDT) GLUCOSE POC 100 60 - 100 mg/dL INTERFACE SYSTEM 02/18/2007 6:10 AM CDT us Kvng Braga MD POINT OF CARE TESTING Edite d Performing Organization Address [facility] Phone Number INTERFACE SYSTEM Refer to clinic/hospital department * (ABNORMAL) CBC WITH DIFFERENTIAL (02/18/2007 5:50 AM CDT) WBC 7.6 4.5 - 11.0 K/ul INTERFACE SYSTEM RBC 2.24(L) 4.60 - 6.20 Mil/ul INTERFACE SYSTEM HEMOGLOBIN 7.0(L) 14.0 - 18.0 g/dL INTERFACE SYSTEM HEMATOCRIT 20.8(L) 41.0 - 53.0 % INTERFACE SYSTEM MCV 92.9 84.0 - 103.0 Fl INTERFACE SYSTEM MCH 31.3 27.0 - 34.0 pg INTERFACE SYSTEM MCHC 33.7 30.0 - 35.0 g/dL INTERFACE SYSTEM RDW 12.9 11.0 - 14.5 % INTERFACE SYSTEM PLATELETS 160 140 - 440 K/ul INTERFACE SYSTEM MPV 9.9 8.9 - 12.8 Fl INTERFACE SYSTEM NEUTROPHILS 58.5 42.2 - 75.2 % INTERFACE SYSTEM LYMPHOCYTES 29.0 24.0 - 44.0 % INTERFACE SYSTEM MONOCYTES 9.6 2.0 - 10.0 % INTERFA CE SYSTEM EOSINOPHILS 2.8 0.0 - 7.0 % INTERF MONA SYSTEM BASOPHILS 0.1 0.0 - 1.0 % INTERFAC E SYSTEM NEUTROPHIL ABSOLUTE 4.5 2.0 - 8.0 K/ul INTERFACE SYSTEM LYMPHOCYTE ABSOLUTE 2.2 1.2 - 4.0 K/ul INTERFACE SYSTEM MONOCYTE ABSOLUTE 0.7(H) 0.1 - 0.6 K/ul INTERFACE SYSTEM EOSINOPHIL ABSOLUTE 0.2 0.0 - 0.7 K/ul INTERFACE SYSTEM BASOPHILS ABSOLUTE 0.0 0.0 - 0.2 K/ul INTERFACE SYSTEM PERIPHERAL BLOOD SMEAR REVIEW Automated Diff Automated Diff INTERFACE SYSTEM 02/18/2007 5:50 AM CDT us Kvng Braga MD HEMATOLOGY ORDERABLES Edite d Performing Organization Address [facility] Phone Number INTERFACE SYSTEM Refer to clinic/hospital department * (ABNORMAL) BASIC METABOLIC PANEL (02/18/2007 5:50 AM CDT) Pathologist [facility] GLUCOSE 98 70 - 110 mg/dL INTERFACE SYSTEM BUN 14 9 - 20 mg/dL INTERFACE SYSTEM CREATININE 0.8 0.7 - 1.5 mg/dL INTERFACE SYSTEM SODIUM 141 136 - 145 mEq/L INTERFACE SYSTEM POTASSIUM 3.6 3.5 - 5.0 mEq/L INTERFACE SYSTEM CHLORIDE 109 95 - 110 mEq/L INTERFACE SYSTEM CO2 30 22 - 32 mmol/l INTERFACE SYSTEM CALCIUM 6.6(L) 8.4 - 10.5 mg/dL INTERFACE SYSTEM ANION GAP 6(L) 9 - 20 mEq/L INTERFACE SYSTEM OSMOLALITY, CALCULATED 289 275 - 295 mOsm/Kg INTERFACE SYSTEM 02/18/2007 5:50 AM CDT Result Brianna Braga MD CHEMISTRY ORDERABLES Edited Performing Organization Address [facility] Phone Number INTERFACE SYSTEM Refer to clinic/hospital department * (ABNORMAL) POC GLUCOSE (02/17/2007 10:25 PM CDT) GLUCOSE POC 126(H) 60 - 100 mg/dL INTERFACE SYSTEM 02/17/2007 10:2 5 PM CDT us Kvng Braga MD POINT OF CARE TESTING Edite d Performing Organization Address [facility] Phone Number INTERFACE SYSTEM Refer to clinic/hospital department * (ABNORMAL) POC GLUCOSE (02/17/2007 4:16 PM CDT) GLUCOSE POC 108(H) 60 - 100 mg/dL INTERFACE SYSTEM 02/17/2007 4:16 PM CDT us Kvng Braga MD POINT OF CARE TESTING Edite d Performing Organization Address [facility] Phone Number INTERFACE SYSTEM Refer to clinic/hospital department * (ABNORMAL) POC GLUCOSE (02/17/2007 12:21 PM CDT) GLUCOSE POC 155(H) 60 - 100 mg/dL INTERFACE SYSTEM 02/17/2007 12:2 1 PM CDT us Kvng Braga MD POINT OF CARE TESTING Edite d Performing Organization Address [facility] Phone Number INTERFACE SYSTEM Refer to clinic/hospital department * (ABNORMAL) POC GLUCOSE (02/16/2007 9:53 PM CDT) GLUCOSE POC 167(H) 60 - 100 mg/dL INTERFACE SYSTEM 02/16/2007 9:53 PM CDT Tobi Cardona Jr., MD POINT OF CARE TESTING E dited Performing Organization Address City/[facility] de Phone Number INTERFACE SYSTEM Refer to clinic/hospital department * (ABNORMAL) POC GLUCOSE (02/16/2007 4:03 PM CDT) GLUCOSE POC 121(H) 60 - 100 mg/dL INTERFACE SYSTEM 02/16/2007 4:03 PM CDT Tobi Cardona Jr., MD POINT OF CARE TESTING E dited Performing Organization Address [facility] Phone Number INTERFACE SYSTEM Refer to clinic/hospital department * (ABNORMAL) POC GLUCOSE (02/16/2007 10:53 AM CDT) GLUCOSE POC 143(H) 60 - 100 mg/dL INTERFACE SYSTEM 02/16/2007 10:5 3 AM CDT Tobi Cardona Jr., MD POINT OF CARE TESTING E dited Performing Organization Address [facility] Phone Number INTERFACE SYSTEM Refer to clinic/hospital department * (ABNORMAL) POC GLUCOSE (02/16/2007 7:21 AM CDT) GLUCOSE POC 165(H) 60 - 100 mg/dL INTERFACE SYSTEM 02/16/2007 7:21 AM CDT Tobi Cardona Jr., MD POINT OF CARE TESTING E dited Performing Organization Address [facility] Phone Number INTERFACE SYSTEM Refer to clinic/hospital department * (ABNORMAL) BASIC METABOLIC PANEL (02/16/2007 4:35 AM CDT) GLUCOSE 148(H) 70 - 110 mg/dL INTERFACE SYSTEM BUN 12 9 - 20 mg/dL INTERFACE SYSTEM CREATININE 0.8 0.7 - 1.5 mg/dL INTERFACE SYSTEM SODIUM 139 136 - 145 mEq/L INTERFACE SYSTEM POTASSIUM 4.3 3.5 - 5.0 mEq/L INTERFACE SYSTEM CHLORIDE 106 95 - 110 mEq/L INTERFACE SYSTEM CO2 29 22 - 32 mmol/l INTERFACE SYSTEM CALCIUM 7.5(L) 8.4 - 10.5 mg/dL INTERFACE SYSTEM ANION GAP 8(L) 9 - 20 mEq/L INTERFACE SYSTEM OSMOLALITY, CALCULATED 289 275 - 295 mOsm/Kg INTERFACE SYSTEM 02/16/2007 4:35 AM CDT Kvng Braga MD CHEMISTRY ORDERABLES Edited Performing Organization Address [facility]/State/ZIP Co de Phone Number INTERFACE SYSTEM Refer to clinic/hospital department * (ABNORMAL) CBC WITH DIFFERENTIAL (02/16/2007 4:35 AM CDT) WBC 11.9(H) 4.5 - 11.0 K/ul INTERFACE SYSTEM RBC 2.63(L) 4.60 - 6.20 Mil/ul INTERFACE SYSTEM HEMOGLOBIN 8.3(L) 14.0 - 18.0 g/dL INTERFACE SYSTEM HEMATOCRIT 24.0(L) 41.0 - 53.0 % INTERFACE SYSTEM MCV 91.3 84.0 - 103.0 Fl INTERFACE SYSTEM MCH 31.6 27.0 - 34.0 pg INTERFACE SYSTEM MCHC 34.6 30.0 - 35.0 g/dL INTERFACE SYSTEM RDW 12.6 11.0 - 14.5 % INTERFACE SYSTEM PLATELETS 137(L) 140 - 440 K/ul INTERFACE SYSTEM MPV 10.9 8.9 - 12.8 Fl INTERFACE SYSTEM NEUTROPHILS 85.2(H) 42.2 - 75.2 % INTERFACE SYSTEM LYMPHOCYTES 7.0(L) 24.0 - 44.0 % INTERFACE SYSTEM MONOCYTES 7.7 2.0 - 10.0 % INTERFA CE SYSTEM BASOPHILS 0.1 0.0 - 1.0 % INTERFAC E SYSTEM NEUTROPHIL ABSOLUTE 10.2(H) 2.0 - 8.0 K/ul INTERFACE SYSTEM LYMPHOCYTE ABSOLUTE 0.8(L) 1.2 - 4.0 K/ul INTERFACE SYSTEM MONOCYTE ABSOLUTE 0.9(H) 0.1 - 0.6 K/ul INTERFACE SYSTEM BASOPHILS ABSOLUTE 0.0 0.0 - 0.2 K/ul INTERFACE SYSTEM PERIPHERAL BLOOD SMEAR REVIEW Automated Diff Automated Diff INTERFACE SYSTEM 02/16/2007 4:35 AM CDT us Kvgn Braga MD HEMATOLOGY ORDERABLES Edite d INTERFACE SYSTEM Refer to clinic/hospital department * (ABNORMAL) POC GLUCOSE (02/15/2007 8:30 PM CDT) GLUCOSE POC 130(H) 60 - 100 mg/dL INTERFACE SYSTEM 02/15/2007 8:30 PM CDT Tobi Cardona Jr., MD POINT OF CARE TESTING E dited Performing Organization Address City/[facility]/ZIP Co de Phone Number INTERFACE SYSTEM Refer to clinic/hospital department * (ABNORMAL) POC GLUCOSE (02/15/2007 4:16 PM CDT) GLUCOSE POC 122(H) 60 - 100 mg/dL INTERFACE SYSTEM 02/15/2007 4:16 PM CDT Tobi Cardona Jr., MD POINT OF CARE TESTING E dited Performing Organization Address [facility] de Phone Number INTERFACE SYSTEM Refer to clinic/hospital department * (ABNORMAL) HEMOGLOBIN AND HEMATOCRIT (02/15/2007 1:22 PM CDT) HEMOGLOBIN 8.5(L) 14.0 - 18.0 g/dL INTERFACE SYSTEM Comment:called to or 8 at 13:27 HEMATOCRIT 25.0(L) 41.0 - 53.0 % INTERFACE SYSTEM 02/15/2007 1:22 PM CDT Kvng Braga MD HEMATOLOGY ORDERABLES Edite d Performing Organization Address [facility] de Phone Number INTERFACE SYSTEM Refer to clinic/hospital department * (ABNORMAL) POC ISTAT EG 7+ (02/15/2007 1:04 PM CDT) SPECIMEN TYPE Arterial INTERF MONA SYSTEM Comment: Test Performed By [id number] Sample not collected by CVS Hemoglobin calculated from Hematocrit result FIO2 70 INTERFACE SYSTEM TEMPERATURE 37.4 DegC INTERFAC E SYSTEM PH 7.41 7.35 - 7.45 Unit INTERFACE SYSTEM PH TEMP CORRECT 7.41 7.35 - 7.45 Unit INTERFACE SYSTEM PCO2 POC 35 35 - 45 mmHg INTERFACE SYSTEM PCO2 TEMP CORRECT 36 35 - 45 mmHg INTERFACE SYSTEM PO2 229(H) 80 - 105 mmHg INTERFACE SYSTEM PO2 TEMP CORRECT 231(H) 80 - 105 mmHg INTERFACE SYSTEM HCO3 (CALC) POC 22.3 22.0 - 26.0 mmol/l INTERFACE SYSTEM BASE EXCESS -2 -2 - 3 mmol/l INTERFACE SYSTEM HEMOGLOBIN POC 6.5 3 g/dL 13.5 - 18.0 g/dL INTERFACE SYSTEM HEMATOCRIT ABG 19(L) 38 - 51 % INTER FACE SYSTEM O2 SATURATION 100(H) 95 - 98 % INTERF MONA SYSTEM TCO2 (CALC) POC 23 23 - 27 mmol/l INTERFACE SYSTEM SODIUM 136(L) 138 - 146 mEq/L INTERFACE SYSTEM POTASSIUM 3.7 3.5 - 4.9 mEq/L INTERFACE SYSTEM CALCIUM IONIZED 1.10(L) 1.12 - 1.32 mmol/l INTERFACE SYSTEM 02/15/2007 1:04 PM CDT us Kvng Braga MD POINT OF CARE TESTING COM E dited INTERFACE SYSTEM Refer to clinic/hospital department * (ABNORMAL) POC ISTAT EG 7+ (02/15/2007 11:16 AM CDT) SPECIMEN TYPE Arterial INTERF MONA SYSTEM Comment: Test Performed By [id number] Sample not collected by CVS Hemoglobin calculated from Hematocrit result FIO2 70 INTERFACE SYSTEM TEMPERATURE 37.4 DegC INTERFAC E SYSTEM PH 7.43 7.35 - 7.45 Unit INTERFACE SYSTEM PH TEMP CORRECT 7.42 7.35 - 7.45 Unit INTERFACE SYSTEM PCO2 POC 38 35 - 45 mmHg INTERFACE SYSTEM PCO2 TEMP CORRECT 39 35 - 45 mmHg INTERFACE SYSTEM PO2 112(H) 80 - 105 mmHg INTERFACE SYSTEM PO2 TEMP CORRECT 114(H) 80 - 105 mmHg INTERFACE SYSTEM HCO3 (CALC) POC 25.4 22.0 - 26.0 mmol/l INTERFACE SYSTEM BASE EXCESS 1 -2 - 3 mmol/l INTERFACE SYSTEM HEMOGLOBIN POC 10.9 3 g/dL 13.5 - 18.0 g/dL INTERFACE SYSTEM HEMATOCRIT ABG 32(L) 38 - 51 % INTER FACE SYSTEM O2 SATURATION 99(H) 95 - 98 % INTERF MONA SYSTEM TCO2 (CALC) POC 27 23 - 27 mmol/l INTERFACE SYSTEM SODIUM 134(L) 138 - 146 mEq/L INTERFACE SYSTEM POTASSIUM 4.1 3.5 - 4.9 mEq/L INTERFACE SYSTEM CALCIUM IONIZED 1.02(L) 1.12 - 1.32 mmol/l INTERFACE SYSTEM 02/15/2007 11:1 6 AM CDT Kvng Braga MD POINT OF CARE TESTING COM E dited Performing Organization Address [facility] de Phone Number INTERFACE SYSTEM Refer to clinic/hospital department * BASIC METABOLIC PANEL (02/15/2007 5:42 AM CDT) GLUCOSE 99 70 - 110 mg/dL INTERFACE SYSTEM BUN 9 9 - 20 mg/dL INTERFACE SYSTEM CREATININE 0.8 0.7 - 1.5 mg/dL INTERFACE SYSTEM SODIUM 138 136 - 145 mEq/L INTERFACE SYSTEM POTASSIUM 4.2 3.5 - 5.0 mEq/L INTERFACE SYSTEM CHLORIDE 101 95 - 110 mEq/L INTERFACE SYSTEM CO2 30 22 - 32 mmol/l INTERFACE SYSTEM CALCIUM 8.7 8.4 - 10.5 mg/dL INTERFACE SYSTEM ANION GAP 11 9 - 20 mEq/L INTERFACE SYSTEM OSMOLALITY, CALCULATED 283 275 - 295 mOsm/Kg INTERFACE SYSTEM 02/15/2007 5:42 AM CDT Kvng Braga MD CHEMISTRY ORDERABLES Edited Performing Organization Address [facility] de Phone Number INTERFACE SYSTEM Refer to clinic/hospital department * (ABNORMAL) CBC WITH DIFFERENTIAL (02/15/2007 5:42 AM CDT) WBC 12.6(H) 4.5 - 11.0 K/ul INTERFACE SYSTEM RBC 4.46(L) 4.60 - 6.20 Mil/ul INTERFACE SYSTEM HEMOGLOBIN 14.0 14.0 - 18.0 g/dL INTERFACE SYSTEM HEMATOCRIT 41.4 41.0 - 53.0 % INTERFACE SYSTEM MCV 92.8 84.0 - 103.0 Fl INTERFACE SYSTEM MCH 31.4 27.0 - 34.0 pg INTERFACE SYSTEM MCHC 33.8 30.0 - 35.0 g/dL INTERFACE SYSTEM RDW 12.6 11.0 - 14.5 % INTERFACE SYSTEM PLATELETS 171 140 - 440 K/ul INTERFACE SYSTEM MPV 10.4 8.9 - 12.8 Fl INTERFACE SYSTEM NEUTROPHILS 78.7(H) 42.2 - 75.2 % INTERFACE SYSTEM LYMPHOCYTES 10.5(L) 24.0 - 44.0 % INTERFACE SYSTEM MONOCYTES 10.0 2.0 - 10.0 % INTERFACE SYSTEM EOSINOPHILS 0.6 0.0 - 7.0 % INTERFACE SYSTEM BASOPHILS 0.2 0.0 - 1.0 % INTERFACE SYSTEM NEUTROPHIL ABSOLUTE 9.9(H) 2.0 - 8.0 K/ul INTERFACE SYSTEM LYMPHOCYTE ABSOLUTE 1.3 1.2 - 4.0 K/ul INTERFACE SYSTEM MONOCYTE ABSOLUTE 1.3(H) 0.1 - 0.6 K/ul INTERFACE SYSTEM EOSINOPHIL ABSOLUTE 0.1 0.0 - 0.7 K/ul INTERFACE SYSTEM BASOPHILS ABSOLUTE 0.0 0.0 - 0.2 K/ul INTERFACE SYSTEM 02/15/2007 5:42 AM CDT Result Brianna Braga MD HEMATOLOGY ORDERABLES Edite d Performing Organization Address [facility] de Phone Number INTERFACE SYSTEM Refer to clinic/hospital department * POC GLUCOSE (02/15/2007 5:28 AM CDT) GLUCOSE POC 88 60 - 100 mg/dL INTERFACE SYSTEM 02/15/2007 5:28 AM CDT Result Brianna Braga MD POINT OF CARE TESTING Edite d Performing Organization Address [facility] Phone Number INTERFACE SYSTEM Refer to clinic/hospital department * POC GLUCOSE (02/14/2007 4:37 PM CDT) GLUCOSE POC 92 60 - 100 mg/dL INTERFACE SYSTEM 02/14/2007 4:37 PM CDT Result Brianna Braga MD POINT OF CARE TESTING Edite d Performing Organization Address [facility] de Phone Number INTERFACE SYSTEM Refer to clinic/hospital department * POC GLUCOSE (02/14/2007 12:34 PM CDT) GLUCOSE POC 89 60 - 100 mg/dL INTERFACE SYSTEM 02/14/2007 12:3 4 PM CDT Result Brianna Braga MD POINT OF CARE TESTING Edite d Performing Organization Address [facility] Phone Number INTERFACE SYSTEM Refer to clinic/hospital department * BASIC METABOLIC PANEL (02/14/2007 4:28 AM CDT) GLUCOSE 98 70 - 110 mg/dL INTERFACE SYSTEM BUN 11 9 - 20 mg/dL INTERFACE SYSTEM CREATININE 1.0 0.7 - 1.5 mg/dL INTERFACE SYSTEM SODIUM 139 136 - 145 mEq/L INTERFACE SYSTEM POTASSIUM 4.6 3.5 - 5.0 mEq/L INTERFACE SYSTEM CHLORIDE 104 95 - 110 mEq/L INTERFACE SYSTEM CO2 25 22 - 32 mmol/l INTERFACE SYSTEM CALCIUM 8.9 8.4 - 10.5 mg/dL INTERFACE SYSTEM ANION GAP 15 9 - 20 mEq/L INTERFACE SYSTEM OSMOLALITY, CALCULATED 286 275 - 295 mOsm/Kg INTERFACE SYSTEM 02/14/2007 4:28 AM CDT us Kvng Braga MD CHEMISTRY ORDERABLES Edited Performing Organization Address [facility] Phone Number INTERFACE SYSTEM Refer to clinic/hospital department * PT AND APTT (02/14/2007 4:28 AM CDT) PROTIME 14.2 13.0 - 15.7 Secs INTERFACE SYSTEM Comment: As of 06 note change in normal range. INR 1.0 INTERFACE SYSTEM Comment: Expected Values for INR: DVT/PE Goal INR 2.5; range 2.0 - 3.0 Valve Replacement Tissue Goal INR 2.5; range 2.0 - 3.0 Mechanical Goal INR 3.0; range 2.5 - 3.5 POST-WI Goal INR 2.5; range 2.0 - 3.0 or Goal 3.0; range 2.5 - 3.5 Atrial Fibrillation Goal INR 2.5; range 2.0 - 3.0 Ischemic Stroke Goal INR 2.5; range 2.0 - 3.0 For additional information see Guidelines for Anticoagulation available from the pharmacy Michael Chaudhry PTT 24.7 21.6 - 35.6 Secs INTERFACE SYSTEM Comment: Therapeutic Range: Hi-level PE/DVT heparin protocol 80.1 -95.0 sec Lo-level PE/DVT heparin protocol 67.1 - 80.0 sec Cardiac Heparin Protocol 67.1 - 85.0 sec Neuro Heparin Protocol 67.1 - 80.0 sec As of 06/24/2006 note change in APTT Normal Range. 02/14/2007 4:28 AM CDT Kvng Braga MD HEMATOLOGY ORDERABLES Edite d Performing Organization Address City/[facility]/ZIP Co de Phone Number INTERFACE SYSTEM Refer to clinic/hospital department * (ABNORMAL) CBC WITH DIFFERENTIAL (02/14/2007 4:28 AM CDT) WBC 10.1 4.5 - 11.0 K/ul INTERFACE SYSTEM RBC 4.60 4.60 - 6.20 Mil/ul INTERFACE SYSTEM HEMOGLOBIN 14.5 14.0 - 18.0 g/dL INTERFACE SYSTEM HEMATOCRIT 42.2 41.0 - 53.0 % INTERFACE SYSTEM MCV 91.7 84.0 - 103.0 Fl INTERFACE SYSTEM MCH 31.5 27.0 - 34.0 pg INTERFACE SYSTEM MCHC 34.4 30.0 - 35.0 g/dL INTERFACE SYSTEM RDW 12.8 11.0 - 14.5 % INTERFACE SYSTEM PLATELETS 226 140 - 440 K/ul INTERFACE SYSTEM MPV 10.7 8.9 - 12.8 Fl INTERFACE SYSTEM NEUTROPHILS 73.5 42.2 - 75.2 % INTERFACE SYSTEM LYMPHOCYTES 17.4(L) 24.0 - 44.0 % INTERFACE SYSTEM MONOCYTES 8.6 2.0 - 10.0 % INTERFACE SYSTEM EOSINOPHILS 0.3 0.0 - 7.0 % INTERFACE SYSTEM BASOPHILS 0.2 0.0 - 1.0 % INTERFACE SYSTEM NEUTROPHIL ABSOLUTE 7.4 2.0 - 8.0 K/ul INTERFACE SYSTEM LYMPHOCYTE ABSOLUTE 1.8 1.2 - 4.0 K/ul INTERFACE SYSTEM MONOCYTE ABSOLUTE 0.9(H) 0.1 - 0.6 K/ul INTERFACE SYSTEM EOSINOPHIL ABSOLUTE 0.0 0.0 - 0.7 K/ul INTERFACE SYSTEM BASOPHILS ABSOLUTE 0.0 0.0 - 0.2 K/ul INTERFACE SYSTEM 02/14/2007 4:28 AM CDT Kvng Braga MD HEMATOLOGY ORDERABLES Edite d INTERFACE SYSTEM Refer to clinic/hospital department * (ABNORMAL) POC GLUCOSE (02/13/2007 11:24 PM CDT) GLUCOSE POC 104(H) 60 - 100 mg/dL INTERFACE SYSTEM 02/13/2007 11:2 4 PM CDT us Kvng Braga MD POINT OF CARE TESTING Edite d Performing Organization Address [facility] Phone Number INTERFACE SYSTEM Refer to clinic/hospital department * PROTIME-INR (02/13/2007 8:38 PM CDT) Pathologist [facility] PROTIME 14.3 13.0 - 15.7 Secs INTERFACE SYSTEM Comment: As of 06 note change in normal range. INR 1.0 INTERFACE SYSTEM Comment: Expected Values for INR: DVT/PE Goal INR 2.5; range 2.0 - 3.0 Valve Replacement Tissue Goal INR 2.5; range 2.0 - 3.0 Mechanical Goal INR 3.0; range 2.5 - 3.5 POST-W[place] Goal INR 2.5; range 2.0 - 3.0 or Goal 3.0; range 2.5 - 3.5 Atrial Fibrillation Goal INR 2.5; range 2.0 - 3.0 Ischemic Stroke Goal INR 2.5; range 2.0 - 3.0 For additional information see Guidelines for Anticoagulation available from the pharmacy [facility]. 02/13/2007 8:38 PM CDT us Bhanu Gay MD HEMATOLOGY ORDERABLES Edited Performing Organization Address [facility] de Phone Number INTERFACE SYSTEM Refer to clinic/hospital department * (ABNORMAL) CBC WITH DIFFERENTIAL (02/13/2007 8:38 PM CDT) WBC 12.7(H) 4.8 - 10.8 K/ul INTERFACE SYSTEM RBC 4.69 4.60 - 6.20 Mil/ul INTERFACE SYSTEM HEMOGLOBIN 14.9 14.0 - 18.0 g/dL INTERFACE SYSTEM HEMATOCRIT 42.8 41.0 - 53.0 % INTERFACE SYSTEM MCV 91.3 84.0 - 103.0 Fl INTERFACE SYSTEM MCH 31.8 27.0 - 34.0 pg INTERFACE SYSTEM MCHC 34.8 30.0 - 35.0 g/dL INTERFACE SYSTEM RDW 12.8 11.0 - 14.5 % INTERFACE SYSTEM PLATELETS 229 140 - 440 K/ul INTERFACE SYSTEM MPV 10.9 8.9 - 12.8 Fl INTERFACE SYSTEM NEUTROPHILS 78.8(H) 42.2 - 75.2 % INTERFACE SYSTEM LYMPHOCYTES 13.8(L) 24.0 - 44.0 % INTERFACE SYSTEM MONOCYTES 5.9 2.0 - 10.0 % INTERFACE SYSTEM EOSINOPHILS 1.3 0.0 - 7.0 % INTERFACE SYSTEM BASOPHILS 0.2 0.0 - 1.0 % INTERFACE SYSTEM NEUTROPHIL ABSOLUTE 10.0(H) 2.0 - 8.0 K/ul INTERFACE SYSTEM LYMPHOCYTE ABSOLUTE 1.8 1.2 - 4.0 K/ul INTERFACE SYSTEM MONOCYTE ABSOLUTE 0.8(H) 0.1 - 0.6 K/ul INTERFACE SYSTEM EOSINOPHIL ABSOLUTE 0.2 0.0 - 0.7 K/ul INTERFACE SYSTEM BASOPHILS ABSOLUTE 0.0 0.0 - 0.2 K/ul INTERFACE SYSTEM 02/13/2007 8:38 PM CDT Bhanu Gay MD HEMATOLOGY ORDERABLES Edited Performing Organization Address City/[facility] Co de Phone Number INTERFACE SYSTEM Refer to clinic/hospital department * (ABNORMAL) ETHANOL (02/13/2007 8:38 PM CDT) ETHANOL 39(H) <=10 mg/dL INTERFACE SYSTEM ETHANOL % 0.039(H) <=0.010 % INTERFACE SYSTEM Comment: Beginning August 31, 2006, the Blood Alcohol from [facility] will be reported in % as well as mg/dl. 02/13/2007 8:38 PM CDT Bhanu Gay MD CHEMISTRY ORDERABLES Edited Performing Organization Address City/[facility] Co de Phone Number INTERFACE SYSTEM Refer to clinic/hospital department * BASIC METABOLIC PANEL (02/13/2007 8:38 PM CDT) GLUCOSE 109 70 - 110 mg/dL INTERFACE SYSTEM BUN 12 9 - 20 mg/dL INTERFACE SYSTEM CREATININE 1.1 0.7 - 1.5 mg/dL INTERFACE SYSTEM SODIUM 137 136 - 145 mEq/L INTERFACE SYSTEM POTASSIUM 4.3 3.5 - 5.0 mEq/L INTERFACE SYSTEM CHLORIDE 107 95 - 110 mEq/L INTERFACE SYSTEM CO2 22 22 - 32 mmol/l INTERFACE SYSTEM CALCIUM 9.0 8.4 - 10.5 mg/dL INTERFACE SYSTEM ANION GAP 12 9 - 20 mEq/L INTERFACE SYSTEM OSMOLALITY, CALCULATED 283 275 - 295 mOsm/Kg INTERFACE SYSTEM 02/13/2007 8:38 PM CDT Bhanu Gay MD CHEMISTRY ORDERABLES Edited INTERFACE SYSTEM Refer to clinic/hospital department documented in this encounter Visit Diagnoses Diagnosis Closed fracture of T1-T6 level with complete lesion of cord- Primary documented in this encounter Additional Health Concerns Infection Onset Date Last Indicated Resolved Time R/O COVID-19 08/19/2020 08/19/2020 08/20/2020 1:44 PM MARKET RISK SPECIALIST documented as of this encounter Care Teams Truck Hopper Relationship Specialty Start Date End Date Jonathan Pham MD [address] [address] PCP - General Family Practice 03/01/18 documented as of this encounter
--- OUTSIDE RECORDS SUMMARY | 2025-01-09 18:05 | XMS_ITS | Encounter Summary ---
Author Organization [facility] Address [address] [place] [address] Care Team Providers Care Printed Circuit Board Reworker Name Role Phone Jontahan Pham MD Primary Care Provider [phone] Encounter Details Date Type Department Care Team (Latest Contact Info) Description 03/29/2007 Outpatient Historical [facility] Laboratory Services [address] [place] [facility] [address] [place] [address] Awilda Ulloa MD [address] [place] [address] Other Postoperative Infection (Primary Dx) Social History Tobacco Use Types Packs/Day Years Used Date Smoking Tobacco: Never Assessed Sex and Gender Information Value Date Recorded Sex Assigned at Not on file Legal Sex Male 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 Gender Identity Not on file Sexual Orientation Not on file documented as of this encounter Plan of Treatment Not on file documented as of this encounter Procedures Procedure Name Priority Date/Time Associated Diagnosis Comments CBC WITH DIFFERENTIAL Routine 03/29/2007 1:19 PM CDT PTT Routine 03/29/2007 1:19 PM CDT SEDIMENTATION RATE Routine 03/29/2007 1: 19 PM CDT PROTIME-INR Routine 03/29/2007 1:19 PM CDT C-REACTIVE PROTEIN Routine 03/29/2007 1: 19 PM CDT documented in this encounter Results * PTT (03/29/2007 1:19 PM CDT) PTT 35.2 21.6 - 35.6 Secs INTERFACE SYSTEM Comment: Therapeutic Range: Hi-level PE/DVT heparin protocol 80.1 -95.0 sec Lo-level PE/DVT heparin protocol 67.1 - 80.0 sec Cardiac Heparin Protocol 67.1 - 85.0 sec Neuro Heparin Protocol 67.1 - 80.0 sec As of 06/24/2006 note change in APTT Normal Range. 03/29/2007 1:19 PM CDT us Awilda Ulloa MD HEMATOLOGY ORDERABLES Edited Performing Organization Address City/[facility] de Phone Number INTERFACE SYSTEM Refer to clinic/hospital department * (ABNORMAL) PROTIME-INR (03/29/2007 1:19 PM CDT) PROTIME 21.0(H) 13.0 - 15.7 Secs INTERFACE SYSTEM Comment: As of 06 note change in normal range. INR 1.7 INTERFACE SYSTEM Comment: Expected Values for INR: DVT/PE Goal INR 2.5; range 2.0 - 3.0 Valve Replacement Tissue Goal INR 2.5; range 2.0 - 3.0 Mechanical Goal INR 3.0; range 2.5 - 3.5 POST-TX Goal INR 2.5; range 2.0 - 3.0 or Goal 3.0; range 2.5 - 3.5 Atrial Fibrillation Goal INR 2.5; range 2.0 - 3.0 Ischemic Stroke Goal INR 2.5; range 2.0 - 3.0 For additional information see Guidelines for Anticoagulation available from the pharmacy [facility]. 03/29/2007 1:19 PM CDT us Awilda Ulloa MD HEMATOLOGY ORDERABLES Edited INTERFACE SYSTEM Refer to clinic/hospital department * (ABNORMAL) C-REACTIVE PROTEIN (03/29/2007 1:19 PM CDT) Pathologist [facility] CRP 12.30(H) 0.00 - 1.00 mg/dL INTERFACE SYSTEM 03/29/2007 1:19 PM CDT Awilda Ulloa MD CHEMISTRY ORDERABLES Edited Performing Organization Address City/[facility]/ZIP Co de Phone Number INTERFACE SYSTEM Refer to clinic/hospital department * (ABNORMAL) SEDIMENTATION RATE (03/29/2007 1:19 PM CDT) Pathologist [facility] ESR (SEDIMENTATION RATE) 54(H) 0 - 20 mm/hr INTERFACE SYSTEM 03/29/2007 1:19 PM CDT Awilda Ulloa MD HEMATOLOGY ORDERABLES Edited Performing Organization Address [facility] de Phone Number INTERFACE SYSTEM Refer to clinic/hospital department * (ABNORMAL) CBC WITH DIFFERENTIAL (03/29/2007 1:19 PM CDT) Pathologist [facility] WBC 9.1 4.5 - 11.0 K/ul INTERFACE SYSTEM RBC 4.46(L) 4.60 - 6.20 Mil/ul INTERFACE SYSTEM HEMOGLOBIN 11.8(L) 14.0 - 18.0 g/dL INTERFACE SYSTEM HEMATOCRIT 38.1(L) 41.0 - 53.0 % INTERFACE SYSTEM MCV 85.4 84.0 - 103.0 Fl INTERFACE SYSTEM MCH 26.5(L) 27.0 - 34.0 pg INTERFACE SYSTEM MCHC 31.0 30.0 - 35.0 g/dL INTERFACE SYSTEM RDW 15.7(H) 11.0 - 14.5 % INTERFACE SYSTEM PLATELETS 465(H) 140 - 440 K/ul INTERFACE SYSTEM MPV 10.5 8.9 - 12.8 Fl INTERFACE SYSTEM NEUTROPHILS 64.4 42.2 - 75.2 % INTERFACE SYSTEM LYMPHOCYTES 26.1 24.0 - 44.0 % INTERFACE SYSTEM MONOCYTES 6.3 2.0 - 10.0 % INTERFACE SYSTEM EOSINOPHILS 2.9 0.0 - 7.0 % INTERFACE SYSTEM BASOPHILS 0.3 0.0 - 1.0 % INTERFACE SYSTEM NEUTROPHIL ABSOLUTE 5.9 2.0 - 8.0 K/ul INTERFACE SYSTEM LYMPHOCYTE ABSOLUTE 2.4 1.2 - 4.0 K/ul INTERFACE SYSTEM MONOCYTE ABSOLUTE 0.6 0.1 - 0.6 K/ul INTERFACE SYSTEM EOSINOPHIL ABSOLUTE 0.3 0.0 - 0.7 K/ul INTERFACE SYSTEM BASOPHILS ABSOLUTE 0.0 0.0 - 0.2 K/ul INTERFACE SYSTEM 03/29/2007 1:19 PM CDT Awilda Ulloa MD HEMATOLOGY ORDERABLES Edited INTERFACE SYSTEM Refer to clinic/hospital department documented in this encounter Visit Diagnoses Diagnosis Other postoperative infection- Primary documented in this encounter Additional Health Concerns Infection Onset Date Last Indicated Resolved Time R/O COVID-19 08/19/2020 08/19/2020 08/20/2020 1:44 PM FLANGER documented as of this encounter Care Teams Printed Circuit Board Reworker Relationship Specialty Start Date End Date Jonathan Pham MD [address] [place] [address] PCP - General Family Practice 03/01/18 documented as of this encounter
--- OUTSIDE RECORDS SUMMARY | 2025-01-09 18:05 | XMS_ITS | Encounter Summary ---
Author Organization [facility] Address [address] [place] [address] Care Team Providers Care Electric Wirer Name Role Phone Jonathan Pham MD Primary Care Provider [phone] Encounter Details Date Type Department Care Team (Latest Contact Info) Description 02/13/2007 Outpatient Historical [facility] [address] [place] [address] AMBULANCE, LL2 [facility] Paraplegia ([facility]/HCC) (Primary Dx) Social History Tobacco Use Types Packs/Day Years Used Date Smoking Tobacco: Never Assessed Sex and Gender Information Value Date Recorded Sex Assigned at Not on file Legal 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 Gender Identity Not on file Sexual Orientation Not on file documented as of this encounter Plan of Treatment Not on file documented as of this encounter Visit Diagnoses Diagnosis Paraplegia (CMS/HCC)- Primary Paraplegia documented in this encounter Additional Health Concerns Infection Onset Date Last Indicated Resolved Time R/O COVID-19 08/19/2020 08/19/2020 08/20/2020 1:44 PM YARDAGE 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 documented as of this encounter Care Teams Electric Wirer Relationship Specialty Start Date End Date Jonathan Pham MD [address] [place] [address] PCP - General Family Practice 03/01/18 documented as of this encounter
--- OUTSIDE RECORDS SUMMARY | 2025-01-09 18:05 | XMS_ITS | Encounter Summary ---
Author Organization [facility] Address [address] [place] [address] Care Team Providers Care Fruit Grading Supervisor Name Role Phone Jonathan Pham MD Primary Care Provider [phone] [phone] Encounter Details Date Type Department Care Team (Late st Contact Info) Description 03/31/2007 Outpatient [facility] [address] [place] [address] AMBULANCE, [facility] Encounter for Other Specified Aftercare (Primary Dx) Social History Tobacco Use Types Packs/Day Years Used Date Smoking Tobacco: Never Assessed Sex and Gender Information Value Date Recorded Sex Assigned at Not on file 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 Gender Identity Not on file Sexual Orientation Not on file documented as of this encounter Plan of Treatment Not on file documented as of this encounter Visit Diagnoses Diagnosis Encounter for other specified aftercare- Primary documented in this encounter Additional Health Concerns Infection Onset Date Last Indicated Resolved Time R/O COVID-19 08/19/2020 08/19/2020 08/20/2020 1:44 PM CHECK WRITING MACHINE OPERATOR documented as of this encounter Care Teams Fruit Grading Supervisor Relationship Specialty Start Date End Date Jonathan Pham MD [address] [facility] [address] [place] [address] PCP - General Family Practice 03/01/18 documented as of this encounter
--- OUTSIDE RECORDS SUMMARY | 2025-01-09 18:05 | XMS_ITS | Encounter Summary ---
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
[2025-01-09 18:14] LABS: Ketone (Acetest) Serum Negative (Negative)
[2025-01-09 18:24] LABS: Alanine Aminotransferase 21 U/L (0-41); Albumin Level 3.8 g/dL (3.5-5.2); Alkaline Phosphatase 68 U/L (40-130); Anion Gap 17.3 (5-19); Aspartate Amino Transferase 13 U/L (0-40); Blood Urea Nitrogen 16 mg/dL (8-23); Calcium 9.1 mg/dL (8.5-10.5); Carbon Dioxide 23 mmol/L (22-29); Chloride 103 mmol/L (98-107); Creatinine Clr Calc Pharmacy 75.3023; Globulin 3.6 g/dL (1.3-4.6); Glomerular Filtration Rate 84.7 mL/min (90-130); Glucose 162 mg/dL (65-115); Lactic Sepsis W/Reflex 2.3 mmol/L (0.5-2.2); Osmolality Calculated 293 mOsm/kg (285-295); Potassium 4.3 mmol/L (3.5-5.1); Sodium 139 mmol/L (136-145); Total Bilirubin 0.2 mg/dL (0.15-1.2); Total Protein 7.4 g/dL (6.6-8.7)
--- NOTE | 2025-01-09 18:42 | XRR_ITS ---
PROCEDURE INFORMATION: Exam: XR Chest Exam date and time: 01/09/2025 6:46 PM Age: 64 years old Clinical indication: Other: AMS; Prior surgery; Surgery date: 6+ months; Surgery type: Port; Additional info: AMS, possible sepsis TECHNIQUE: Imaging protocol: Radiologic exam of the chest. Views: 1 view. COMPARISON: CR XR chest 1V portable [id number] 03/04/2023 6:42 PM FINDINGS: Tubes, catheters and devices: A left-sided VAD is in good position with the catheter tip in the lower SVC. Lungs: Unremarkable. No consolidation or mass. Pleural spaces: Unremarkable. No pleural effusion. No pneumothorax. Heart/Mediastinum: There is soft tissue thickening involving the upper mediastinum. Bones/joints: Metallic rods and pedicle screws are noted throughout most of the thoracic spine. Bony alignment is normal. XR/XR chest 1V portable [id number] IMPRESSION: 1. No acute findings. 2. Stable mediastinal soft tissue thickening 3. Surgical changes
[2025-01-09] MEDS: sodium chloride 0.9% 1,905.09 ML 1905.09 ML IV (19:00)
[2025-01-09 19:20] LABS: Bilirubin Urine Negative (Negative); Blood Urine 2+ (Negative); Glucose Urine UA Negative (Normal); Ketones Urine Trace (Negative); Leukocyte Esterase Urine 3+ (Negative); Nitrate Urine Positive (Negative); Protein Urine 3+ (Negative); Urine Appearance Turbid (CLEAR); Urine Color Dark Yellow (Yellow); pH Urine 8.5 (5-7)
[2025-01-09 19:27] LABS: Amphetamines Screen Urine Negative (Negative); Barbiturates Screen Urine Negative (Negative); Benzodiazepines Screen Urine Negative (Negative); Cocaine Screen Urine Negative (Negative); Opiate Screen Urine Negative (Negative); PCP Screen Urine Negative (Negative); THC Screen Urine Negative (Negative)
[2025-01-09 19:38] VITALS: BP 91/54; PULSE 68; RESP 16; O2SAT 98
[2025-01-09 19:46] LABS: Specific Gravity, Urine 1.031 (1.005-1.030); UA Manual Slide Review YES; UA Slide Review UA Slide Review Perf
[2025-01-09 19:48] LABS: Add Urine Microscopic? YES; Bacteria Urine 3+ /hpf; Squamous Epithelial Cell Urine 0-4 /hpf (0-5); WBC Urine 80-100 /hpf (0-5)
[2025-01-09 19:48] LABS: Reflex Lactate Order REFLEX LACTIC ORDERD
[2025-01-09 19:49] LABS: Add Urine Culture? Yes; Amorphous Sediment Urine 1+ /hpf; Hyaline Casts Urine 0-4 /lpf
[2025-01-09] MEDS: cefTRIAXone 2,000 mg SDV 2000 MG IVP (20:43)
[2025-01-09 20:56] VITALS: BP 144/70; PULSE 68; RESP 14; O2SAT 98
[2025-01-09 21:45] LABS: Lactic Acid level (Lactate) 1.5 mmol/L (0.5-2.2)
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
[2025-01-09 22:30] VITALS: BP 126/76; PULSE 77; RESP 14; O2SAT 98
[2025-01-09 22:52] LABS: Iron 25 ug/dL (59-158); Percent Saturation 7.6 % (20-50); Total Iron Binding Capacity 326 mcg/dl; Unsaturated Iron Binding 301 ug/dL (112-347)
[2025-01-09] MEDS: enoxaparin 40 mg/0.4 mL Syringe SUBCUT (23:37)
[2025-01-10] VITALS (7 sets, daily range): BP systolic 104–146; BP diastolic 62–89; PULSE 70–101; RESP 15–18; TEMP 36.3–36.6; O2SAT 94–98; BMI 74.2
[2025-01-10] MEDS: lactated ringers 1,000 ML 150 ML IV (02:30)
--- NOTE | 2025-01-10 03:32 | PC.NURSE ---
0230- upon entry to room patients catheter noted to be not draining . upon further evaluation patients bag and tubing noted with hard/thick crystals causing blockage. pts weber bag changed over and noted instantaneous drainage of urine through new tubing and into bag. pt in no obvious distress. pt resting comfrotably in bed sleeping . call light within reach.
--- NOTE | 2025-01-10 05:09 | PC.NURSE ---
0400- pt sleeping comfortably in bed at this time on cardiac montior. pt in n obvious distress.
--- NOTE | 2025-01-10 07:01 | PC.NURSE ---
assumed [facility] @[phone]
--- NOTE | 2025-01-10 08:07 | CT_ITS ---
WS: [id number] CT ABDOMEN AND PELVIS NONCONTRAST HISTORY: uti, suprapubic cath TECHNIQUE: Imaging performed through the abdomen and pelvis. Coronal and sagittal reformats are submitted. All CT scans at [facility] use at least one of these dose optimization techniques: automated exposure control; mA and/or kV adjustment per patient size (includes targeted exams where dose is matched to clinical indication); or iterative reconstruction. DLP: 623.83 mGy.cm COMPARISON: 03/26/2023, 02/15/2023 Lower thorax: Lung bases are clear. Mild cardiomegaly. Small hiatal hernia. Liver: Hepatic steatosis. Gallbladder: Cholelithiasis without acute cholecystitis. Pancreas: Normal size and attenuation. Normal pancreatic duct. No pancreatitis or mass. Spleen: Mildly enlarged 14.5 cm in length. Similar to the prior study. Adrenal glands: Normal. No mass. Right kidney: Mild perinephric stranding. No obstruction. Left kidney: Mild perinephric stranding with no obstruction. Aorta: Mild atherosclerosis abdominal aorta with no aneurysm. IVC filter. No free fluid, intraperitoneal air or significant lymphadenopathy. GI tract: No obstruction. LEFT lower quadrant colostomy. Normal appendix. No small bowel obstruction. Abdominal wall: Negative. No hernia. Pelvis: Suprapubic catheter within the urinary bladder. Mild diffuse bladder wall thickening may be due to under distention. Bilateral large decubitus ulcers extending to the ischial tuberosities. No interval change. No enhancement or progression of bone disease. Osseous structures: Advanced spondylitic changes. Loss of the normal trabecular and cortical morphology of the hips. Probably due to osteopenia. No fractures. CT/CT abdomen pelvis wo con [id number] IMPRESSION: 1. LEFT lower quadrant colostomy. No GI tract obstruction. 2. Cholelithiasis without acute cholecystitis. 3. Bilateral perinephric stranding, RIGHT greater than LEFT. This can be noted with pyelonephritis or be chronic. 4. Suprapubic catheter in the urinary bladder. 5. Bilateral decubitus ulcers extending to the ischial tuberosities, no change .
[2025-01-10] MEDS: gabapentin 100 mg Capsule PO ×3 (09:22→20:35)
[2025-01-10] MEDS: quetiapine 25 mg Tablet PO ×2 (09:22→18:03)
[2025-01-10] MEDS: baclofen 10 mg Tablet PO ×3 (09:22→20:35)
[2025-01-10] MEDS: metformin 500 mg Tablet PO ×2 (09:22→18:03)
--- NOTE | 2025-01-10 09:26 | PC.NURSE ---
this nurse assessed colostomy bag that had opened; discarded old colostomy bag and adhesive; applied new colostomy bag/adhesive. pt denies pain. changed pt onelia gown and changed bedding. pt denies further needs at this time.
--- NOTE | 2025-01-10 09:59 | PC.NURSE ---
contacted head of housekeeping for need for catheter to replace suprapubic catheter; Salty notified
--- NOTE | 2025-01-10 10:40 | PC.NURSE ---
replaced suprapubic catheter per verbal order of Dr. Pond. 16F catheter placed with 10mL saline in balloon.
[2025-01-10] MEDS: ascorbic acid 500 mg Tablet PO (10:41)
[2025-01-10] MEDS: oxybutynin 5 mg Tablet PO ×2 (10:41→18:03)
--- NOTE | 2025-01-10 12:05 | PC.NURSE ---
antibiotics late due to not being verified
[2025-01-10] MEDS: cefTRIAXone 1,000 mg SDV 1000 MG IVP ×2 (12:15→21:28)
[2025-01-10] MEDS: VANCOMYCIN ADD-Vantage 1,000 MG in 0.9% NaCl ADD-Vantage 250 ML 250 MG IV ×2 (12:22→21:34)
--- NOTE | 2025-01-10 12:34 | PC.NURSE ---
emptied colostomy bag, approx 200mL output.
--- NOTE | 2025-01-10 14:45 | P.PN_ITS ---
Subjective 2 Subjective: Patient was seen this morning, currently alert oriented x 2, following all commands, denies any fevers, no chills, no abdominal pain complaints, no flank pain Vitals/I&O/Wt Last Vital Signs Temp 98.3 F 01/09/25 17:12 Pulse 78 01/10/25 13:19 Resp 18 01/10/25 12:32 BP 126/89 01/10/25 13:19 Pulse Ox 98 01/10/25 13:19 O2 Del Method Room Air 01/10/25 04:00 O2 Flow Rate 97 01/10/25 12:32 01/09/25 01/10/25 01/10/25 22:59 06:59 14:59 Intake Total 3805.09 / 3805.09 1000 / 1000 Balance 3805.09 / 3805.09 1000 / 1000 Weight last 48 hrs Weight 63.503 kg Physical Exam 2 Const: COMMON NORMALS: no acute distress and patient oriented x3 Resp: COMMON NORMALS: normal respiratory effort, No retractions, No use of accessory muscles and clear to auscultation bilaterally AUSCULTATION: clear to auscultation bilaterally Cardio: COMMON NORMALS: regular rate, regular rhythm, S1 normal heart sound present and S2 normal heart sound present RATE: regular rate RHYTHM: r egular rhythm HEART SOUNDS: S1 normal heart sound present and S2 normal heart sound present GI: COMMON NORMALS: Normal to inspection, nondistended, normoactive bowel sounds present and non-tender OTHER: Colostomy bag in place : OTHER: Suprapubic catheter in place Extremity: COMMON NORMALS: no pedal edema Neuro: COMMON NORMALS: patient oriented x3 Psych: COMMON NORMALS: mental status grossly normal Urinary Catheter Management: Suprapubic: Cath Placed During This Visit: yes Reason for Continuing Indwelling Catheter: Other Urinary Catheter Date of Insertion: 01/10/25 Urinary Catheter Time of Insertion: 10:41 Data 01/09/25 17:57 01/09/25 17:57 Micro: Microbiology 01/09/25 17:59 Blood Culture - Preliminary Blood SPECIMEN COLLECTED 01/09/25 17:57 Blood Culture - Preliminary Blood SPECIMEN COLLECTED A&P Assessment and plan (1) Recurrent UTI: - CT evidence of bilateral pyelonephritis CT/CT abdomen pelvis wo con [id number] IMPRESSION: 1. LEFT lower quadrant colostomy. No GI tract obstruction. 2. Cholelithiasis without acute cholecystitis. 3. Bilateral perinephric stranding, RIGHT greater than LEFT. This can be noted with pyelonephritis or be chronic. 4. Suprapubic catheter in the urinary bladder. 5. Bilateral decubitus ulcers extending to the ischial tuberosities, no change. - History of Proteus UTIs, history of Enterococcus UTIs - Continue Rocephin - Continue vancomycin (2) Catheter-associated urinary tract infection: - Change suprapubic catheter today (3) Neurogenic bladder: As above history of T2 paraplegia (4) Osteomyelitis: Report of sacral osteomyelitis in the past (5) Diabetes mellitus: Continue insulin sliding scale (6) Paraplegia: Patient appears pretty wiry and is not overweight so likely can mobilize himself in bed using his arms. Will ask physical therapy to work with him (7) Pyelonephritis, acute: PDMP PDMP Reviewed: Not Reviewed Attestations 2 Medical Necessity Statement*: Patient requires hospitalization for urinary tract infection, complicated Diagnoses Recurrent UTI N39.0 Catheter-associated urinary tract infection T83.511A; N39.0 Neurogenic bladder N31.9 Osteomyelitis M86.9 Diabetes mellitus E11.9 Paraplegia G82.20 Pyelonephritis, acute N10
[2025-01-10 16:42] LABS: Glucose Point of Care 180 mg/dL (70-110)
--- NOTE | 2025-01-10 18:17 | PHA.VACGOAL ---
Vancomycin Goal - Goal Vancomycin Goal:: 15-20 mg/L Vancomycin Indication:: Other - Therapy Day of therpy:: Day []of [] . Actual body weight (kg): 152 lb 8 oz - Data Labs: WBC 9.61 10^3/uL (3.29-11.43) 01/09/25 17:57 RBC 5.41 10^6/uL (3.85-5.65) 01/09/25 17:57 Hgb 13.00 g/dL (11.27-16.99) 01/09/25 17:57 Hct 44.0 % (37-53) 01/09/25 17:57 MCV 81.3 fl (82-101) L 01/09/25 17:57 MCH 24.0 pg (27-33) L 01/09/25 17:57 MCHC 29.5 g/dL (30-55) L 01/09/25 17:57 RDW 19.3 % (12.1-15.1) H 01/09/25 17:57 Sodium 139 mmol/L (136-145) 01/09/25 17:57 Potassium 4.3 mmol/L (3.5-5.1) 01/09/25 17:57 Chloride 103 mmol/L (98-107) 01/09/25 17:57 Carbon Dioxide 23 mmol/L (22-29) 01/09/25 17:57 Anion Gap 17.3 (5-19) 01/09/25 17:57 BUN 16 mg/dL (8-23) 01/09/25 17:57 Creatinine 0.9 mg/dL (0.7-1.2) 01/09/25 17:57 GFR Calculation 84.7 mL/min (90-130) L 01/09/25 17:57 Treatment plan:: new consult Regimen:: 1000 MG Q12H
[2025-01-10] MEDS: mirtazapine 30 mg Tablet PO (20:35)
[2025-01-10 20:58] LABS: Glucose Point of Care 126 mg/dL (70-110)
[2025-01-10] MEDS: enoxaparin 40 mg/0.4 mL Syringe SUBCUT (21:28)
[2025-01-11] VITALS: BP 112/61; PULSE 103; RESP 16; TEMP 36.6; O2SAT 95
[2025-01-11 04:00] VITALS: BP 115/68; PULSE 100; RESP 16; TEMP 36.6; O2SAT 96
[2025-01-11 06:10] LABS: Basophils % 0.6 %; Eosinophils # 0.6 10^3/uL (0.0-0.8); Hematocrit 43.6 % (37-53); Lymphocytes # 0.5 10^3/uL (0.8-4.8); Lymphocytes % 10.3 %; Mean Corpuscular HGB Conc 29.4 g/dL (30-55); Mean Corpuscular Hemoglobin 23.6 pg (27-33); Mean Corpuscular Volume 80.3 fl (82-101); Mean Platelet Volume 10.7 fL (7.4-10.4); Monocytes # 0.4 10^3/uL (0.2-0.9); Neutrophils # 3.57 10^3/uL (1.8-7.7); Neutrophils % 69.3 %; Nucleated Red Blood Cells % 0 %; Platelet Count 197 10^3/cmm (157-399); Red Blood Count 5.43 10^6/uL (3.85-5.65); Red Cell Distribution Width 18.8 % (12.1-15.1); White Blood Count 5.15 10^3/uL (3.29-11.43)
[2025-01-11 06:30] LABS: Glucose Point of Care 257 mg/dL (70-110)
[2025-01-11 06:32] LABS: Anion Gap 15.1 (5-19); Blood Urea Nitrogen 9 mg/dL (8-23); Calcium 8.5 mg/dL (8.5-10.5); Carbon Dioxide 23 mmol/L (22-29); Chloride 105 mmol/L (98-107); Creatinine Clr Calc Pharmacy 85.6393; Glomerular Filtration Rate 113.2 mL/min (90-130); Glucose 167 mg/dL (65-115); Osmolality Calculated 290 mOsm/kg (285-295); Potassium 4.1 mmol/L (3.5-5.1); Sodium 139 mmol/L (136-145)
[2025-01-11 07:28] VITALS: BP 175/95; PULSE 73; RESP 18; TEMP 36.4; O2SAT 95
[2025-01-11] MEDS: gabapentin 100 mg Capsule PO ×3 (08:17→21:06)
[2025-01-11] MEDS: oxybutynin 5 mg Tablet PO ×2 (08:17→17:32)
[2025-01-11] MEDS: lisinopril 5 mg Tablet PO (08:17)
[2025-01-11] MEDS: baclofen 10 mg Tablet PO ×3 (08:17→21:06)
[2025-01-11] MEDS: ascorbic acid 500 mg Tablet PO (08:17)
[2025-01-11] MEDS: quetiapine 25 mg Tablet PO ×2 (08:17→17:32)
[2025-01-11] MEDS: insulin lispro 100 unit/1 mL SUBCUT ×4 (08:19→21:04)
[2025-01-11] MEDS: ondansetron 2 mg/ML SDV 2 mL 4 MG IVP (08:20)
[2025-01-11 11:15] LABS: Glucose Point of Care 209 mg/dL (70-110)
[2025-01-11 11:29] VITALS: BP 139/71; PULSE 108; RESP 16; TEMP 36.6; O2SAT 96
--- NOTE | 2025-01-11 11:52 | PM.CONSULT ---
Providers/Reason For Consult Consulting Physician/Specialty*: Wound care Reason for Consult*: Bilateral gluteal pressure ulcers Requesting Physician: Dr. Pond Attending Physician: Cullen Pond MD Primary Care Provider: Jonathan Pham History of Present Illness History of Present Illness Israel Mullen is a 64 year old male with a past medical history including paraplegia since 2006, neurogenic bladder, diabetes melitis, recurrent UTI, and chronic pressure ulcers of bilateral glutei. He was admitted to [facility] on January 09 due to a UTI. He is currently on IV antibiotics for this and is being managed by hospitalist service. He is well-known to [facility] wound care, and was last seen on December [address] Bowers. At that time the wounds were stable, and progressing slowly. His next scheduled appointment at [facility] wound care is January [address] Bowers. Upon evaluation today, the wounds to his left gluteus and right gluteus remain stable. There is a moderate amount of macerated tissue surrounding the wounds. There are no signs or symptoms of active infection such as fevers, chills, nausea, vomiting, malodor, purulent drainage, periwound erythema, or periwound warmth. Review of Systems General: Reports: 10 or more systems reviewed and unremarkable except in HPI and below Const: Denies: fever(s) or chills Card: Denies: chest pain Resp: Denies: dyspnea GI: Denies: nausea or vomiting Medications/Allergies Home Medications ?Medication ?Instructions ?Recorded ?Confirmed ?Last Taken ?Type baclofen 20 mg tablet 10 mg (1/2 x 20 mg) PO TID #1 tab 03/07/23 01/10/25 01/09/25 Rx gabapentin 800 mg tablet 800 mg PO TID 01/10/25 01/10/25 01/09/25 History glimepiride 1 mg tablet 1 mg PO QAM 01/10/25 01/10/25 01/09/25 History lisinopril 5 mg tablet 5 mg PO DAILY 01/10/25 01/10/25 01/09/25 History metformin 1,000 mg tablet 1,000 mg PO BID 01/10/25 01/10/25 01/09/25 History Allergies Allergy/AdvReac Type Severity Reaction Status Date / Time Penicillins Allergy Unknown Unknown Verified 10/12/23 11:28 Current Medications Generic Name Dose Route Start Last Admin Trade Name Humza PRN Reason Stop Dose Admin Ascorbic Acid 500 mg 01/10/25 09:00 01/11/25 08:17 Ascorbic Acid 500 Mg Tablet PO 500 mg DAILY CLARY Administration Baclofen 10 mg 01/10/25 09:00 01/11/25 08:17 Baclofen 10 Mg Tablet PO 10 mg TID CLARY Administration Ceftriaxone Sodium 1,000 mg 01/09/25 22:30 01/10/25 21:28 Ceftriaxone 1,000 Mg Sdv IVP 1,000 mg Q12H CLARY Administration Protocol Enoxaparin Sodium 40 mg 01/09/25 22:30 01/10/25 21:28 Enoxaparin 40 Mg/0.4 Ml Syringe SUBCUT 40 mg Q24H CLARY Administration Gabapentin 100 mg 01/10/25 09:00 01/11/25 08:17 Gabapentin 100 Mg Capsule PO 100 mg TID CLARY Administration Vancomycin HCl 1,000 mg/ 250 mls @ 250 mls/hr 01/10/25 10:45 01/10/25 23:01 Sodium Chloride IV Infused Q12H CLARY Infusion Insulin Human Lispro 0 unit 01/11/25 08:00 01/11/25 08:19 Insulin Lispro 100 Unit/1 Ml SUBCUT 6 unit WM&BEDTIME CLARY Administration Protocol Lisinopril 5 mg 01/11/25 09:00 01/11/25 08:17 Lisinopril 5 Mg Tablet PO 5 mg DAILY CLARY Administration Metformin HCl 500 mg 01/10/25 09:00 01/11/25 07:20 Metformin 500 Mg Tablet PO Not Given On Hold: 01/11/25 07:20 BID CLARY Mirtazapine 30 mg 01/10/25 21:00 01/10/25 20:35 Mirtazapine 30 Mg Tablet PO 30 mg BEDTIME CLARY Administration Ondansetron HCl 4 mg 01/09/25 22:30 01/11/25 08:20 Ondansetron 2 Mg/Ml Sdv 2 Ml IVP 4 mg Q8H PRN Administration vomiting, or N/V if npo Oxybutynin Chloride 5 mg 01/10/25 09:00 01/11/25 08:17 Oxybutynin 5 Mg Tablet PO 5 mg BID CLARY Administration Quetiapine Fumarate 25 mg 01/10/25 09:00 01/11/25 08:17 Quetiapine 25 Mg Tablet PO 25 mg BID CLARY Administration PFSH Acute PFSH: Medical History Diabetes mellitus Urinary incontinence Osteomyelitis Right ureteral calculus Obstructive pyelonephritis Neurogenic bladder Paraplegia Surgical History History of back surgery H/O colostomy Family History Mother , at age 54 Cancer melanoma Father , at age 68 Cancer brain tumor Denies family history of Anesthesia complication Bleeding disorder Social History Alcohol intake: current Alcohol intake frequency: holidays/special occasions only Substance/Drug Use: never Additional social history: Patient wants full code as discussed today with him and his Faiza on 01/09/2025 by Chuy Gallo MD Adopted: No Caregiver/support person: No Lives independently: No Household members: spouse Marital status: Current occupational status: disabled 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 Vitals/I&O/Wt Last Vital Signs Temp 97.8 F 01/11/25 11:29 Pulse 108 H 01/11/25 11:29 Resp 16 01/11/25 11:29 BP 139/71 01/11/25 11:29 Pulse Ox 96 01/11/25 11:29 O2 Del Method Room Air 01/11/25 11:29 O2 Flow Rate 97 01/10/25 12:32 01/10/25 01/11/25 01/11/25 22:59 06:59 14:59 Intake Total 790 / 1790 250 / 2040 480 / 480 Output Total 1300 / 1300 400 / 1700 Balance -510 / 490 -150 / 340 480 / 480 Weight last 48 hrs Weight 65.771 kg Weight 69.173 kg Weight 63.503 kg Physical Exam Const: COMMON NORMALS: no acute distress, patient oriented x3 and alert GENERAL APPEARANCE: cooperative, comfortable, well developed and appears older than stated age ORIENTATION/CONSCIOUSNESS: Yes awake, Yes oriented to person, Yes oriented to place and Yes oriented to time HENMT: COMMON NORMALS: normocephalic HEAD & SCALP: normocephalic Neck/C-Spine: GENERAL: Yes normal visual inspection Chest: CHEST: Yes Symmetrical chest wall rise Resp: COMMON NORMALS: normal respiratory effort, No retractions and No use of accessory muscles EFFORT & INSPECTION: Yes able to speak in complete sentences and Yes symmetric chest movement GI: OTHER: Colostomy bag in place : BLADDER/KIDNEY EXAM: Yes catheter in place Back/Pelvis: SACRUM: no ecchymosis, no erythema, no swelling, no tenderness and No sacral edema Extremity: NARRATIVE EXTREMITY EXAM: Bilateral AKA Neuro: COMMON NORMALS: patient oriented x3 SENSORIUM/ORIENTATION: Yes alert, Yes oriented to person, Yes oriented to place and Yes oriented to time SPEECH: speech normal GAIT: Yes Unable to assess gait Psych: COMMON NORMALS: Normal thought process present and speech normal ATTITUDE: Yes calm ACTIVITY/MOTOR BEHAVIOR: Yes appropriate eye contact SPEECH: Yes normal speech MOOD & AFFECT: Yes euthymic mood THOUGHT PROCESS: Normal thought process present THOUGHT CONTENT: Yes Normal thought content present MEMORY/COGNITION: Yes memory grossly intact INSIGHT: Good insight present (Psych) JUDGEMENT: Good judgement present (Psych) Skin: WOUNDS: Yes wounds noted (See wound assessment) Urinary Catheter Management: Suprapubic: Cath Placed During This Visit: yes Reason for Continuing Indwelling Catheter: Chronic Indwelling Urinary Catheter on Admission Urinary Catheter Date of Insertion: 01/10/25 Urinary Catheter Time of Insertion: 10:41 Data 01/11/25 05:58 01/11/25 05:58 Micro: Microbiology 01/09/25 19:11 Urine Culture - Preliminary Urine Suprapubic Gram Negative Rods Gram Negative Rods#2 01/09/25 17:59 Blood Culture - Preliminary Blood NEGATIVE TO DATE 01/09/25 17:57 Blood Culture - Preliminary Blood NEGATIVE TO DATE A&P Assessment and plan (1) Stage IV pressure ulcer of right buttock: (2) Stage IV pressure ulcer of left buttock: Plan Pressure ulcers to bilateral glutei appears stable without decline from his last visit at [facility] wound care. No active signs or symptoms of infection at this time. Will recommend Hydrofera Blue to the wounds daily covered with an ABD pad for moisture control secured with tape. He is encouraged to regularly change position to relieve pressure on the affected area, at minimum every 2 hours. Use pillows, foam cushions, mattress pads, or other aids to reduce pressure on vulnerable areas. Remove pressure from medical devices like catheters and oxygen tubing. He would benefit from a pressure relieving mattress while in the hospital. Patient has a scheduled appointment at wound care January [address] Bowers. Wound care will follow-up tomorrow. PDMP PDMP Reviewed: Not Reviewed Consult Attestations Time Spent in Patient Care: 16 - 35 minutes Coding Level of Care Code Acute Code for Chg Fwd Diagnoses Stage IV pressure ulcer of right buttock L89.314 Stage IV pressure ulcer of left buttock L89.324 Wound Assessment Wound Assessment Wound Number 1 Gluteus: Descriptor: Left Primary Etiology: Pressure Ulcer Classification: Stage 4 Length (cm): 2.5 cm Width (cm): 0.4 cm Depth (cm): 0.2 cm Epithelialization: Medium (34-66%) Tunneling: No Undermining: No Exudate Amount: Medium Drainage Type: Serosanguineous Foul Odor After Cleansing: No Slough/Fibrin?: Yes Granulation Amount: Large (67-100%) Granulation Quality: Red Necrotic Amount: Small (1-33%) Necrotic Type: Adherent Slough Wound Number 2 Gluteus: Descriptor: Right Primary Etiology: Pressure Ulcer Classification: Stage 4 Length (cm): 4.5 cm Width (cm): 2 cm Depth (cm): 0.3 cm Epithelialization: Medium (34-66%) Tunneling: No Undermining: No Exudate Amount: Medium Drainage Type: Serosanguineous Foul Odor After Cleansing: No Slough/Fibrin?: Yes Granulation Amount: Large (67-100%) Granulation Quality: Red and [place] Necrotic Amount: Small (1-33%) Necrotic Type: Adherent Slough Wound Orders All Wounds: Left and right gluteal wounds Dressing change frequency: Daily Wound Cleansing: Saline Primary Wound Care Dressing: Hydrofera Blue ready Secondary Wound Care Dressing: ABD pad, Medipore tape Off-Loading: Gel mattress overlay and Turn and reposition every 2 hours
[2025-01-11] MEDS: VANCOMYCIN ADD-Vantage 1,000 MG in 0.9% NaCl ADD-Vantage 250 ML 250 MG IV ×2 (11:59→21:05)
[2025-01-11] MEDS: cefTRIAXone 1,000 mg SDV 1000 MG IVP ×2 (11:59→21:05)
--- NOTE | 2025-01-11 14:56 | P.PN_ITS ---
Subjective 2 Subjective: Patient was seen this morning, currently alert oriented x 3, following all commands, denies any fevers, no chills, no cough, no pain complaints Vitals/I&O/Wt Last Vital Signs Temp 97.8 F 01/11/25 11:29 Pulse 108 H 01/11/25 11:29 Resp 16 01/11/25 11:29 BP 139/71 01/11/25 11:29 Pulse Ox 96 01/11/25 11:29 O2 Del Method Room Air 01/11/25 11:29 O2 Flow Rate 97 01/10/25 12:32 01/10/25 01/11/25 01/11/25 22:59 06:59 14:59 Intake Total 790 / 1790 250 / 2040 850 / 850 Output Total 1300 / 1300 400 / 1700 Balance -510 / 490 -150 / 340 850 / 850 Weight last 48 hrs Weight 65.771 kg Weight 69.173 kg Weight 63.503 kg Physical Exam 2 Const: COMMON NORMALS: no acute distress and patient oriented x3 Neck/C-Spine: COMMON NORMALS: no JVD Resp: COMMON NORMALS: normal respiratory effort, No retractions, No use of accessory muscles and clear to auscultation bilaterally AUSCULTATION: clear to auscultation bilaterally Cardio: COMMON NORMALS: no JVD, regular rate, regular rhythm, S1 normal heart sound present and S2 normal heart sound present RATE: regular rate RHYTHM: regular rhythm HEART SOUNDS: S1 normal heart sound present and S2 normal heart sound present GI: COMMON NORMALS: Normal to inspection, nondistended, normoactive bowel sounds present and non-tender Extremity: COMMON NORMALS: no pedal edema Neuro: COMMON NORMALS: patient oriented x3 Psych: COMMON NORMALS: mental status grossly normal Urinary Catheter Management: Suprapubic: Cath Placed During This Visit: yes Reason for Continuing Indwelling Catheter: Chronic Indwelling Urinary Catheter on Admission Urinary Catheter Date of Insertion: 01/10/25 Urinary Catheter Time of Insertion: 10:41 Data 01/11/25 05:58 01/11/25 05:58 Micro: Microbiology 01/09/25 19:11 Urine Culture - Preliminary Urine Suprapubic Gram Negative Rods Gram Negative Rods#2 01/09/25 17:59 Blood Culture - Preliminary Blood NEGATIVE TO DATE 01/09/25 17:57 Blood Culture - Preliminary Blood NEGATIVE TO DATE A&P Assessment and plan (1) Recurrent UTI: - CT evidence of bilateral pyelonephritis CT/CT abdomen pelvis wo con [id number] IMPRESSION: 1. LEFT lower quadrant colostomy. No GI tract obstruction. 2. Cholelithiasis without acute cholecystitis. 3. Bilateral perinephric stranding, RIGHT greater than LEFT. This can be noted with pyelonephritis or be chronic. 4. Suprapubic catheter in the urinary bladder. 5. Bilateral decubitus ulcers extending to the ischial tuberosities, no change. - History of Proteus UTIs, history of Enterococcus UTIs - Continue Rocephin - Continue vancomycin (2) Catheter-associated urinary tract infection: - Change suprapubic catheter today (3) Neurogenic bladder: As above history of T2 paraplegia (4) Osteomyelitis: Report of sacral osteomyelitis in the past (5) Diabetes mellitus: Continue insulin sliding scale (6) Paraplegia: Patient appears pretty wiry and is not overweight so likely can mobilize himself in bed using his arms. Will ask physical therapy to work with him (7) Pyelonephritis, acute: Plan Sacral decubitus ulcers, continue offloading, consult wound care, continue IV antibiotics PDMP PDMP Reviewed: Not Reviewed Attestations 2 Medical Necessity Statement*: Patient requires hospitalization for UTI, complicated, with suprapubic catheter, pyelonephritis Diagnoses Recurrent UTI N39.0 Catheter-associated urinary tract infection T83.511A; N39.0 Neurogenic bladder N31.9 Osteomyelitis M86.9 Diabetes mellitus E11.9 Paraplegia G82.20 Pyelonephritis, acute N10
[2025-01-11 15:48] VITALS: BP 172/90; PULSE 75; RESP 18; TEMP 36.8; O2SAT 96
[2025-01-11 16:35] LABS: Glucose Point of Care 162 mg/dL (70-110)
[2025-01-11] MEDS: acetaminophen 325 mg Tablet 650 MG PO (17:33)
[2025-01-11 19:58] VITALS: BP 135/73; PULSE 79; RESP 16; TEMP 36.5; O2SAT 95
[2025-01-11 20:43] LABS: Glucose Point of Care 146 mg/dL (70-110)
[2025-01-11] MEDS: enoxaparin 40 mg/0.4 mL Syringe SUBCUT (21:06)
[2025-01-11] MEDS: mirtazapine 30 mg Tablet PO (21:06)
[2025-01-12 00:51] VITALS: BP 158/77; PULSE 73; RESP 16; TEMP 36.6; O2SAT 96
[2025-01-12 05:15] VITALS: BP 160/81; PULSE 71; RESP 17; TEMP 36.9; O2SAT 96
[2025-01-12 06:00] LABS: Basophils % 0.6 %; Eosinophils # 0.5 10^3/uL (0.0-0.8); Eosinophils % 11.3 %; Hematocrit 43.9 % (37-53); Lymphocytes # 0.7 10^3/uL (0.8-4.8); Lymphocytes % 14.7 %; Mean Corpuscular HGB Conc 30.1 g/dL (30-55); Mean Corpuscular Hemoglobin 24.1 pg (27-33); Mean Corpuscular Volume 80.1 fl (82-101); Mean Platelet Volume 9.8 fL (7.4-10.4); Monocytes # 0.3 10^3/uL (0.2-0.9); Monocytes % 6.1 %; Neutrophils # 3.18 10^3/uL (1.8-7.7); Neutrophils % 66.7 %; Nucleated Red Blood Cells % 0 %; Platelet Count 199 10^3/cmm (157-399); Red Blood Count 5.48 10^6/uL (3.85-5.65); Red Cell Distribution Width 18.7 % (12.1-15.1); White Blood Count 4.77 10^3/uL (3.29-11.43)
[2025-01-12 06:30] LABS: Blood Urea Nitrogen 8 mg/dL (8-23); Calcium 8.6 mg/dL (8.5-10.5); Carbon Dioxide 22 mmol/L (22-29); Chloride 105 mmol/L (98-107); Creatinine Clr Calc Pharmacy 85.6393; Glomerular Filtration Rate 135.2 mL/min (90-130); Glucose 175 mg/dL (65-115); Osmolality Calculated 293 mOsm/kg (285-295); Sodium 140 mmol/L (136-145)
[2025-01-12 06:47] LABS: Glucose Point of Care 176 mg/dL (70-110)
[2025-01-12 07:32] VITALS: BP 183/87; PULSE 64; RESP 17; TEMP 36.4; O2SAT 96
[2025-01-12] MEDS: baclofen 10 mg Tablet PO (07:46)
[2025-01-12] MEDS: insulin lispro 100 unit/1 mL SUBCUT ×2 (07:46→11:44)
[2025-01-12] MEDS: lisinopril 5 mg Tablet PO (07:47)
[2025-01-12] MEDS: ascorbic acid 500 mg Tablet PO (07:47)
[2025-01-12] MEDS: quetiapine 25 mg Tablet PO (07:47)
[2025-01-12] MEDS: gabapentin 100 mg Capsule PO (07:47)
[2025-01-12] MEDS: oxybutynin 5 mg Tablet PO (07:47)
[2025-01-12] MEDS: amlodipine 5 mg Tablet PO (08:11)
--- NOTE | 2025-01-12 10:46 | P.PN_ITS ---
Subjective 2 Subjective: Patient evaluated at bedside on [facility] today. He states he is feeling better overall. Patient states he is waiting on his to pick him up as he is discharging home today. Dressings are clean dry and intact to bilateral glutei. Vitals/I&O/Wt Last Vital Signs Temp 97.6 F 01/12/25 07:32 Pulse 64 01/12/25 07:32 Resp 17 01/12/25 07:32 BP 183/87 01/12/25 07:32 Pulse Ox 96 01/12/25 07:32 O2 Del Method Room Air 01/11/25 15:48 O2 Flow Rate 97 01/10/25 12:32 01/11/25 01/12/25 01/12/25 22:59 06:59 14:59 Intake Total 850 / 1700 240 / 1940 240 / 240 Output Total 700 / 700 400 / 1100 Balance 150 / 1000 -160 / 840 240 / 240 Weight last 48 hrs Weight 65.771 kg Weight 65.771 kg Weight 69.173 kg Physical Exam 2 Urinary Catheter Management: Suprapubic: Cath Placed During This Visit: yes Reason for Continuing Indwelling Catheter: Chronic Indwelling Urinary Catheter on Admission Urinary Catheter Date of Insertion: 01/10/25 Urinary Catheter Time of Insertion: 10:41 Data 01/12/25 05:48 01/12/25 05:48 Micro: Microbiology 01/09/25 19:11 Urine Culture - Preliminary Urine Suprapubic Gram Negative Rods Gram Negative Rods#2 A&P Assessment and plan (1) Stage IV pressure ulcer of right buttock: (2) Stage IV pressure ulcer of left buttock: Plan Pressure ulcers to bilateral glutei remain stable without decline. No active signs or symptoms of infection at this time. Will contiue Hydrofera Blue to the wounds daily covered with an ABD pad for moisture control secured with tape. He is encouraged to regularly change position to relieve pressure on the affected area, at minimum every 2 hours. Use pillows, foam cushions, mattress pads, or other aids to reduce pressure on vulnerable areas. Remove pressure from medical devices like catheters and oxygen tubing. Patient states he is discharging home today. Patient has a scheduled appointment at wound care January [address] Bowers. He is aware of this. Wound care will sign off at this time. PDMP PDMP Reviewed: Not Reviewed Attestations 2 Medical Necessity Statement*: ongoing wound care medical treatment guided by hospitalist service Time Spent in Patient Care: 16 - 35 minutes Coding Level of Care Code Acute Code for Chg Fwd Diagnoses Stage IV pressure ulcer of right buttock L89.314 Stage IV pressure ulcer of left buttock L89.324 Wound Assessment Wound Assessment Wound Number 1 Gluteus: Descriptor: Left Primary Etiology: Pressure Ulcer Classification: Stage 4 Length (cm): 2.5 cm Width (cm): 0.4 cm Depth (cm): 0.2 cm Epithelialization: Medium (34-66%) Tunneling: No Undermining: No Exudate Amount: Medium Drainage Type: Serosanguineous Foul Odor After Cleansing: No Slough/Fibrin?: Yes Granulation Amount: Large (67-100%) Granulation Quality: Red Necrotic Amount: Small (1-33%) Necrotic Type: Adherent Slough Wound Number 2 Gluteus: Descriptor: Right Primary Etiology: Pressure Ulcer Classification: Stage 4 Length (cm): 4.5 cm Width (cm): 2 cm Depth (cm): 0.3 cm Epithelialization: Medium (34-66%) Tunneling: No Undermining: No Exudate Amount: Medium Drainage Type: Serosanguineous Foul Odor After Cleansing: No Slough/Fibrin?: Yes Granulation Amount: Large (67-100%) Granulation Quality: Red and [place] Necrotic Amount: Small (1-33%) Necrotic Type: Adherent Slough Wound Orders All Wounds: Left and right gluteal wounds Duration: 7 Days Dressing change frequency: Daily Wound Cleansing: Saline Primary Wound Care Dressing: Hydrofera Blue ready Secondary Wound Care Dressing: ABD pad, Medipore tape Off-Loading: Gel mattress overlay and Turn and reposition every 2 hours
[2025-01-12 10:53] VITALS: BP 167/84; PULSE 79; RESP 18; TEMP 36.5; O2SAT 94
[2025-01-12 11:11] LABS: Glucose Point of Care 202 mg/dL (70-110)
[2025-01-12] MEDS: cefTRIAXone 1,000 mg SDV 1000 MG IVP (11:44)
[2025-01-12] MEDS: VANCOMYCIN ADD-Vantage 1,000 MG in 0.9% NaCl ADD-Vantage 250 ML 250 MG IV (11:44)
[2025-01-12 12:43] VITALS: BP 167/84; PULSE 79; RESP 18; TEMP 36.5; O2SAT 94
--- NOTE | 2025-01-12 12:52 | PC.SOCIAL ---
IMM Update pg 2 of IMM Updated and reviewed w/ patient. Copy provided and copy dated, initialed and placed in chart.
--- NOTE | 2025-01-12 13:37 | PC.NURSE ---
this nurse removed IV at this time. catheter intact upon removal. pt tolerated well.
--- NOTE | 2025-01-12 13:52 | PC.NURSE ---
Discharge Note Patient discharged to home via home accompanied by . Discharge instructions reviewed with patient and/or auto claim representative. Mobile pharmacy medications and/or prescriptions provided. Belongings/home medications returned.
--- NOTE | 2025-01-12 15:30 | P.DS_ITS ---
Discharge Providers Date of Admission: 01/10/25 14:48 Date of Discharge: January 12, 2025 Attending Provider at Admission: Chuy Gallo MD Attending Provider at Discharge: Cullen Pond MD Primary Care Provider: Jonathan Pham Diagnoses at Discharge Discharge Diagnosis (1) Stage IV pressure ulcer of right buttock: Status: Acute (2) Stage IV pressure ulcer of left buttock: Status: Acute Reason for Visit Reason for Visit: dizzy, confusion Hospital Course Hospital Course This is a 64-year-old male with a past medical history of quadriplegia, bilateral above-knee amputation, history of suprapubic catheter, history of colostomy, neurogenic bladder, history of sacral osteomyelitis, history of type 2 diabetes who presents to [facility] for altered mental status, recurrent UTI Patient was admitted to [facility] for your current complicated urinary tract infection with CT evidence of bilateral pyelonephritis - Patient received broad-spectrum antibiotic therapy as inpatient - He is suprapubic catheter was changed out during his inpatient stay - Patient overall clinically proved - Remains afebrile - Blood cultures so far clear - Urine culture shows Proteus, providencia sensitive to ciprofloxacin - Will be discharged on p.o. ciprofloxacin - Follow-up with urology as outpatient for change out of suprapubic catheter Patient's sacral decubitus ulcers -CT scan showing bilateral decubitus ulcers extending to ischial tuberosities, no change - He has 2 wounds on his gluteus - Left gluteus, measuring 2.5 x 1 cm, stage 3-4 - Right gluteus, 5 x 1 cm, stage 3-4 - Continue offloading, continue wound care, keep area clean and dry, follow-up with wound care January 18 Physical Exam Const: COMMON NORMALS: no acute distress and patient oriented x3 Resp: COMMON NORMALS: normal respiratory effort, No retractions, No use of accessory muscles and clear to auscultation bilaterally AUSCULTATION: clear to auscultation bilaterally Cardio: COMMON NORMALS: regular rate, regular rhythm, S1 normal heart sound present and S2 normal heart sound present RATE: regular rate RHYTHM: regul ar rhythm HEART SOUNDS: S1 normal heart sound present and S2 normal heart sound present GI: COMMON NORMALS: Normal to inspection, nondistended, normoactive bowel sounds present and non-tender Extremity: NARRATIVE EXTREMITY EXAM: Bilateral above-knee amputation Neuro: COMMON NORMALS: patient oriented x3 Psych: COMMON NORMALS: mental status grossly normal Urinary Catheter Management: Suprapubic: Cath Placed During This Visit: yes Reason for Continuing Indwelling Catheter: Chronic Indwelling Urinary Catheter on Admission Urinary Catheter Date of Insertion: 01/10/25 Urinary Catheter Time of Insertion: 10:41 Discharge Data Studies Completed and Pending Completed Studies During Hospitalization Category Date Time Status CT abdomen pelvis wo con [id number] Stat Cat Scan 01/10/25 08:[address] head wo con* [id number] Stat Cat Scan 01/09/25 17:19 Completed XR chest 1V portable [id number] Stat Exams 01/09/25 18:42 Completed Pending at discharge Category Date Time Status Blood Culture Stat Lab 01/09/25 17:59 Results Radiology Impressions Head CT 01/09/25 17:19 IMPRESSION: No acute intracranial abnormality. Chest X-Ray 01/09/25 18:42 IMPRESSION: 1. No acute findings. 2. Stable mediastinal soft tissue thickening 3. Surgical changes Abdomen/Pelvis CT 01/10/25 08:07 IMPRESSION: 1. LEFT lower quadrant colostomy. No GI tract obstruction. 2. Cholelithiasis without acute cholecystitis. 3. Bilateral perinephric stranding, RIGHT greater than LEFT. This can be noted with pyelonephritis or be chronic. 4. Suprapubic catheter in the urinary bladder. 5. Bilateral decubitus ulcers extending to the ischial tuberosities, no change. Laboratory Results WBC 4.77 10^3/uL (3.29-11.43) 01/12/25 05:48 RBC 5.48 10^6/uL (3.85-5.65) 01/12/25 05:48 Hgb 13.20 g/dL (11.27-16.99) 01/12/25 05:48 Hct 43.9 % (37-53) 01/12/25 05:48 MCV 80.1 fl (82-101) L 01/12/25 05:48 MCH 24.1 pg (27-33) L 01/12/25 05:48 MCHC 30.1 g/dL (30-55) 01/12/25 05:48 RDW 18.7 % (12.1-15.1) H 01/12/25 05:48 Plt Count 199 10^3/cmm (157-399) 01/12/25 05:48 MPV 9.8 fL (7.4-10.4) 01/12/25 05:48 Neut % (Auto) 66.7 % 01/12/25 05:48 Lymph % (Auto) 14.7 % 01/12/25 05:48 Mathews % (Auto) 6.1 % 01/12/25 05:48 Eos % (Auto) 11.3 % 01/12/25 05:48 Baso % (Auto) 0.6 % 01/12/25 05:48 Neut # (Auto) 3.18 10^3/uL (1.8-7.7) 01/12/25 05:48 Lymph # (Auto) 0.7 10^3/uL (0.8-4.8) L 01/12/25 05:48 Mathews # (Auto) 0.3 10^3/uL (0.2-0.9) 01/12/25 05:48 Eos # (Auto) 0.5 10^3/uL (0.0-0.8) 01/12/25 05:48 Baso # (Auto) 0.0 10^3/uL (0.0-0.1) 01/12/25 05:48 Nucleated RBC % (auto) 0 % 01/12/25 05:48 Nucleated RBCs # 0.0 /100WBC 01/12/25 05:48 Specimen Type Arterial 01/09/25 17:50 Sample Site Radial, right 01/09/25 17:50 ABG pH 7.41 (7.35-7.45) 01/09/25 17:50 ABG pCO2 38.1 mmHg (35-45) 01/09/25 17:50 ABG pO2 79.3 mmHg (80.0-100.0) L 01/09/25 17:50 ABG PO2/FiO2 Ratio 377 01/09/25 17:50 ABG HCO3 23.9 mmol/L (22-26) 01/09/25 17:50 ABG O2 Saturation 95.8 01/09/25 17:50 ABG Base Excess -0.7 mmol/L (-2.0-2.0) 01/09/25 17:50 Jose Test Pos 01/09/25 17:50 A-a O2 Gradient 3.0 mmHg (5-10) L 01/09/25 17:50 Hematocrit 39.6 % (42-52) L 01/09/25 17:50 Hgb O2 Saturation 87.9 % (95-100) L 01/09/25 17:50 Carboxyhemoglobin 5.8 %THgb (0.4-20.1) 01/09/25 17:50 Methemoglobin 2.5 % (0.4-1.5) H 01/09/25 17:50 Total Hemoglobin 12.9 g/dL (14-18) L 01/09/25 17:50 Sodium 139.0 mmol/L (131-143) 01/09/25 17:50 Potassium 4.2 mmol/L (3.5-5.0) 01/09/25 17:50 Glucose 163.0 mg/dL (70-115) H 01/09/25 17:50 Ionized Calcium 1.2 mmol/L (1.1-1.4) 01/09/25 17:50 O2 Delivery Device Room air 01/09/25 17:50 FiO2 21.0 % 01/09/25 17:50 Probation Worker ID Monro 01/09/25 17:50 Sodium 140 mmol/L (136-145) 01/12/25 05:48 Potassium 4.0 mmol/L (3.5-5.1) 01/12/25 05:48 Chloride 105 mmol/L (98-107) 01/12/25 05:48 Carbon Dioxide 22 mmol/L (22-29) 01/12/25 05:48 Anion Gap 17.0 (5-19) 01/12/25 05:48 BUN 8 mg/dL (8-23) 01/12/25 05:48 Creatinine 0.6 mg/dL (0.7-1.2) L 01/12/25 05:48 GFR Calculation 135.2 mL/min (90-130) H 01/12/25 05:48 Glucose 175 mg/dL (65-115) H 01/12/25 05:48 POC Glucose 202 mg/dL (70-110) H 01/12/25 11:04 Calculated Osmolality 293 mOsm/kg (285-295) 01/12/25 05:48 Lactic Acid 2.3 mmol/L (0.5-2.2) H 01/09/25 17:57 Lactic Acid (Sepsis) 1.5 mmol/L (0.5-2.2) 01/09/25 21:13 Calcium 8.6 mg/dL (8.5-10.5) 01/12/25 05:48 Iron 25 ug/dL (59-158) L 01/09/25 17:57 TIBC 326 mcg/dl 01/09/25 17:57 % Saturation 7.6 % (20-50) L 01/09/25 17:57 Unsat Iron Binding 301 ug/dL (112-347) 01/09/25 17:57 Total Bilirubin 0.2 mg/dL (0.15-1.2) 01/09/25 17:57 AST 13 U/L (0-40) 01/09/25 17:57 ALT 21 U/L (0-41) 01/09/25 17:57 Alkaline Phosphatase 68 U/L (40-130) 01/09/25 17:57 Total Protein 7.4 g/dL (6.6-8.7) 01/09/25 17:57 Albumin 3.8 g/dL (3.5-5.2) 01/09/25 17:57 Globulin 3.6 g/dL (1.3-4.6) 01/09/25 17:57 Urine Color Dark yellow (Yellow) A 01/09/25 19:11 Urine Appearance Turbid (CLEAR) A 01/09/25 19:11 Urine pH 8.5 (5-7) A 01/09/25 19:11 Ur Specific [place] 1.031 (1.005-1.030) H 01/09/25 19:11 Urine Protein 3+ (Negative) A 01/09/25 19:11 Urine Glucose (UA) Negative (Normal) 01/09/25 19:11 Urine Ketones Trace (Negative) 01/09/25 19:11 Urine Blood 2+ (Negative) A 01/09/25 19:11 Urine Nitrate Positive (Negative) A 01/09/25 19:11 Urine Bilirubin Negative (Negative) 01/09/25 19:11 Urine Urobilinogen 1.0 mg/dL (Negative) 01/09/25 19:11 Ur Leukocyte Esterase 3+ (Negative) A 01/09/25 19:11 Urine RBC 10-15 /hpf (0-2) H 01/09/25 19:11 Urine WBC 80-100 /hpf (0-5) H 01/09/25 19:11 Ur Squamous Epith Cells 0-4 /hpf (0-5) H 01/09/25 19:11 Triple Phos Crystals 5-10 /hpf H 01/09/25 19:11 Amorphous Sediment 1+ /hpf 01/09/25 19:11 Urine Bacteria 3+ /hpf (NONE) H 01/09/25 19:11 Hyaline Casts 0-4 /lpf H 01/09/25 19:11 Urine Mucus None /hpf 01/09/25 19:11 Urine Opiates Screen Negative ng/mL (Negative) 01/09/25 19:11 Ur Barbiturates Screen Negative ng/mL (Negative) 01/09/25 19:11 Ur Phencyclidine Scrn Negative ng/mL (Negative) 01/09/25 19:11 Ur Amphetamines Screen Negative ng/mL (Negative) 01/09/25 19:11 U Benzodiazepines Scrn Negative ng/mL (Negative) 01/09/25 19:11 Urine Cocaine Screen Negative ng/mL (Negative) 01/09/25 19:11 U Marijuana (THC) Screen Negative ng/mL (Negative) 01/09/25 19:11 Serum Ketones Negative (Negative) 01/09/25 17:57 Vitals Last Vital Signs Temp 97.7 F 01/12/25 12:43 Pulse 79 01/12/25 12:43 Resp 18 01/12/25 12:43 BP 167/84 01/12/25 12:43 Pulse Ox 94 01/12/25 12:43 O2 Del Method Room Air 01/12/25 10:53 O2 Flow Rate 97 01/10/25 12:32 Discharge Plan Discharge Patient Disposition: Home Condition: Stable Prescriptions: New amlodipine 5 mg Tablet 5 mg PO DAILY 30 Days Qty: 30 0RF ciprofloxacin HCl 500 mg tablet 500 mg PO BID 10 Days Qty: 20 0RF Continued baclofen 20 mg tablet 10 mg PO TID Qty: 1 0RF Rx Instructions: Dose change only glimepiride 1 mg tablet 1 mg PO QAM gabapentin 800 mg tablet 800 mg PO TID metformin 1,000 mg tablet 1,000 mg PO BID lisinopril 5 mg tablet 5 mg PO DAILY Discharge Orders: Discharge Order (Routine); Ordered 01/12/25 Ordered By: Cullen Pond Referrals: El Antunez MD [Referring, Urology] - 7-10 days Referral Note: suprapubic cath We have notified your physician's clinic of the need for a follow-up appointment to be scheduled. If you have not heard from them within the next 2 business days, please call them directly. Jonathan Pham [Primary Care Provider, Family Practice] - 01/23/25 1:40 pm WOUND CARE CLINIC, [Staff Physician, Unknown] - 01/18/25 11:00 am Discharge Diet: Cardiac Discharge Activity: Resume usual activity Patient Instructions: Ciprofloxacin (By mouth) (Cipro), Amlodipine (By mouth), Altered Mental Status (ED), Catheter-associated Urinary Tract Infection (DC), Opioid Safety, Patient Portal & Jyoti Instructions Activity Restrictions/Additional Instructions: Wound Orders All Wounds: Left and right gluteal wounds Duration: 7 Days Dressing change frequency: Daily Wound Cleansing: Saline Primary Wound Care Dressing: Hydrofera Blue ready Secondary Wound Care Dressing: ABD pad, Medipore tape Off-Loading: Gel mattress overlay and Turn and reposition every 2 hours - Please follow-up with Dr. Bowers January 18 at wound care clinic - Please follow-up with urology as outpatient, or for change out of suprapubic catheter Discharge Attestations Time Spent in Discharge Care*: greater than 30 min Quality Metrics Clinical Quality Measures [ No reported AMI, CVA or VTE this stay] Coding Level of Care Code 45162 Total time (in minutes) for Discharge: 45 Diagnoses Stage IV pressure ulcer of right buttock L89.314 Stage IV pressure ulcer of left buttock L89.324
== END 2025-01-12 13:45 | disposition home or self-care (01) | DRG 698 ==
LOC: ER 20:55 → ER IP 21:31 → MEDSURG 01-10 13:04
PROVIDERS: Family Medicine; Admitting Provider Internal Medicine; Emergency Provider Student in an Organized Health Care Education/Training Program; PCP Family Medicine; Visit Provider Family Medicine
DX: T83.518A Infection and inflammatory reaction due to other urinary catheter, initial encounter (principal); G82.50 Quadriplegia, unspecified; L89.324 Pressure ulcer of left buttock, stage 4; L89.314 Pressure ulcer of right buttock, stage 4; N12 Tubulo-interstitial nephritis, not specified as acute or chronic; Y73.8 Miscellaneous gastroenterology and urology devices associated with adverse incidents, not elsewhere classified; N31.9 Neuromuscular dysfunction of bladder, unspecified; E11.9 Type 2 diabetes mellitus without complications; Z89.612 Acquired absence of left leg above knee; Z89.611 Acquired absence of right leg above knee; Z79.84 Long term (current) use of oral hypoglycemic drugs; Z87.440 Personal history of urinary (tract) infections
CPT/HCPCS: 36415; 36416; 36600; 51702; 70450; 71045; 74176; 80048; 80051; 80053; 80306; 81001; 82009; 82330; 82805; 82962; 83540; 83550; 83605; 85025; 87040; 87077; 87086; 87186; 93005; 96372; 97161; 99285; G0378; J0696; J1650; J1815; J2405; J3370; J7030; J7050; J7120; J9999

== ENCOUNTER → 2025-01-18 10:46 | Outpatient (BNVA) | payer OTHER, MEDICAID, SELFPAY | PROVIDERS: PCP Family Medicine; Visit Provider Thoracic Surgery (Cardiothoracic Vascular Surgery) | DX: I96 Gangrene, not elsewhere classified (principal); L89.324 Pressure ulcer of left buttock, stage 4; L89.314 Pressure ulcer of right buttock, stage 4 | CPT/HCPCS: 97597 ==

== ENCOUNTER → 2025-01-30 14:42 | Outpatient (BNVA) | payer OTHER, MEDICAID, SELFPAY | PROVIDERS: PCP Family Medicine; Visit Provider Thoracic Surgery (Cardiothoracic Vascular Surgery) | DX: I96 Gangrene, not elsewhere classified (principal); L89.324 Pressure ulcer of left buttock, stage 4; L89.314 Pressure ulcer of right buttock, stage 4 | CPT/HCPCS: 11042; 87070; 87176; 87205; 97597 ==

== ENCOUNTER → 2025-02-08 13:02 | Outpatient (BNVA) | payer OTHER, MEDICAID, SELFPAY | PROVIDERS: PCP Family Medicine; Visit Provider Thoracic Surgery (Cardiothoracic Vascular Surgery) | DX: I96 Gangrene, not elsewhere classified (principal); L89.324 Pressure ulcer of left buttock, stage 4; L89.314 Pressure ulcer of right buttock, stage 4 | CPT/HCPCS: 11042; 97597; A6248 ==

== ENCOUNTER → 2025-03-01 10:18 | Outpatient (BNVA) | payer OTHER, MEDICARE, MEDICAID, SELFPAY | PROVIDERS: PCP Family Medicine; Visit Provider Thoracic Surgery (Cardiothoracic Vascular Surgery) | DX: I96 Gangrene, not elsewhere classified (principal); L89.324 Pressure ulcer of left buttock, stage 4; L89.314 Pressure ulcer of right buttock, stage 4; L89.102 Pressure ulcer of unspecified part of back, stage 2 | CPT/HCPCS: 97597; 97598 ==

== ENCOUNTER 2025-03-12 13:31 | Outpatient (CLI) | payer OTHER, MEDICARE, MEDICAID, SELFPAY ==
--- NOTE | 2025-03-12 13:38 | MM_ITS ---
WS: [id number] BILATERAL 3D TOMOSYNTHESIS DIGITAL DIAGNOSTIC MAMMOGRAPHY WITH CAD CLINICAL INFORMATION: SOFT TISSUE MASS HISTORY: Swollen lymph nodes RIGHT armpit. Lump on LEFT ribs COMPARISON: 2012 TECHNIQUE: Bilateral CC, MLO, and ML views. FINDINGS: Suboptimal images due to mammography performed in wheelchair Scattered fibroglandular densities bilaterally. Symmetric bilateral subareolar tissue compatible with gynecomastia similar in appearance to 2012. Palpable marker RIGHT axillary tail with normal underlying tissue. Ultrasound of this area is pending. ULTRASOUND BREAST BILATERAL TECHNIQUE: Ultrasound bilateral breast focused area of concern. CLINICAL INFORMATION: SOFT TISSUE MASS FINDINGS: No suspicious abnormalities on the ultrasound described below. RIGHT BREAST: No suspicious abnormalities in the RIGHT axilla. No visualized lymphadenopathy. Normal underlying subcutaneous and fatty tissue. Ultrasound inferior to the RIGHT breast demonstrates normal underlying ribs in the area of concern. LEFT BREAST: Ultrasound inferior to the LEFT breast along the chest wall demonstrates normal underlying subcutaneous tissue and ribs in the areas of concern. MM/MM diag BI tomosynthesis [id number] IMPRESSION: DENSITY: There are scattered areas of fibroglandular density. BI-RADS: 2 - Benign. FOLLOW UP: See Report
== END 2025-03-12 13:32 | disposition home or self-care (01) ==
LOC: RAD 13:33
PROVIDERS: PCP Family Medicine; Visit Provider Registered Nurse
DX: M79.89 Other specified soft tissue disorders (principal)
CPT/HCPCS: 76642; 77062; G0279

== ENCOUNTER → 2025-03-15 10:45 | Outpatient (BNVA) | payer OTHER, MEDICARE, MEDICAID, SELFPAY | PROVIDERS: PCP Family Medicine; Visit Provider Thoracic Surgery (Cardiothoracic Vascular Surgery) | DX: I96 Gangrene, not elsewhere classified (principal); L89.324 Pressure ulcer of left buttock, stage 4; L89.314 Pressure ulcer of right buttock, stage 4; L89.102 Pressure ulcer of unspecified part of back, stage 2 | CPT/HCPCS: 97597; 97598 ==

== ENCOUNTER → 2025-04-12 10:47 | Outpatient (BNVA) | payer OTHER, MEDICARE, MEDICAID, SELFPAY | PROVIDERS: PCP Family Medicine; Visit Provider Thoracic Surgery (Cardiothoracic Vascular Surgery) | DX: I96 Gangrene, not elsewhere classified (principal); L89.324 Pressure ulcer of left buttock, stage 4; L89.314 Pressure ulcer of right buttock, stage 4; L89.112 Pressure ulcer of right upper back, stage 2 | CPT/HCPCS: 97597; A6210; A6212 ==

== ENCOUNTER 2025-04-19 04:17 | Inpatient (IN) | payer OTHER, MEDICAID, SELFPAY ==
[2025-04-19] VITALS (53 sets, daily range): BP systolic 59–133; BP diastolic 38–76; PULSE 59–163; RESP 12–21; TEMP 36–38.2; O2SAT 15–100; BMI 67.8; BMI 67.6
--- NOTE | 2025-04-19 04:26 | CTR_ITS ---
PROCEDURE INFORMATION: Exam: CT Head Without Contrast Exam date and time: 04/19/2025 5:15 AM Age: 64 years old Clinical indication: Altered mental status/memory loss; Additional info: AMS TECHNIQUE: Imaging protocol: Computed tomography of the head without contrast. Radiation optimization: All CT scans at this facility use at least one of these dose optimization techniques: automated exposure control; mA and/or kV adjustment per patient size (includes targeted exams where dose is matched to clinical indication); or iterative reconstruction. COMPARISON: CT head wo con* [id number] 01/09/2025 5:37 PM RADIATION DOSE METRICS: Total DLP (mGy-cm): 1181.48 FINDINGS: Brain: Normal. No hemorrhage. Unremarkable white matter. No mass effect. Cerebral ventricles: No ventriculomegaly. Paranasal sinuses: Visualized sinuses are unremarkable. No fluid levels. Mastoid air cells: Visualized mastoid air cells are well aerated. Bones: Unremarkable. No acute fracture. Soft tissues: Unremarkable. CT/CT head wo con* [id number] IMPRESSION: No acute intracranial abnormality.
--- NOTE | 2025-04-19 04:26 | XRR_ITS ---
PROCEDURE INFORMATION: Exam: XR Chest Exam date and time: 04/19/2025 4:35 AM Age: 64 years old Clinical indication: Shortness of breath; Additional info: Possible sepsis TECHNIQUE: Imaging protocol: Radiologic exam of the chest. Views: 1 view. COMPARISON: CR XR chest 1V portable [id number] 01/09/2025 6:46 PM FINDINGS: Lungs: Unremarkable. No consolidation. Pleural spaces: Unremarkable. No pleural effusion. No pneumothorax. Heart/Mediastinum: Unremarkable. No cardiomegaly. Bones/joints: Posterior fusion of the thoracic spine. XR/XR chest 1V portable [id number] IMPRESSION: No acute findings.
--- NOTE | 2025-04-19 04:28 | ECG_ITS ---
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 Measurements Intervals Rebecca Rate: 68 P: 62 NM: 189 QRS: 66 QRSD: 91 T: 51 QT: 404 QTc: 430 Interpretive Statements SINUS RHYTHM Compared to ECG 01/09/2025 19:06:47 No significant changes Electronically Signed On 04-19-2025 08:50:51 CDT by Avila Cope M.D. [email or web address]
--- OUTSIDE RECORDS SUMMARY | 2025-04-19 04:34 | XMS_ITS | Clinical Summary ---
Author Organization [facility] tone Address [address] [place] [address] Care Team Providers Care Database Administration Manager Name Role Phone Jonathan Pham MD Primary Care Provider [phone] [phone] Allergies Active Allergy Reactions Criticality Noted Date [...] 1 Active baclofen (LIORESAL) 20 mg tabletIndication s:Paraplegia,Spa sticity,History of spinal cord injury,Neuropath ic pain syndrome [...] hyperglycemia, without long-term current use of insulin Take 1 Tablet (500 mg) by mouth daily with breakfast. 30 Tablet 5 1 Active Miscellaneous Medical SupplyIndication s:Type 2 diabetes mellitus with hyperglycemia, without long-term current use of insulin Dx: Type 2 Diabetes Mellitus E11.65 Rx: Glucometer, strips, lancents. QS x 3 months Sig: Monitor fasting blood sugar daily 1 Each 1 Active gabapentin (NEURONTIN) 800 mg tabletIndication s:Paraplegia,Spa sticity,History of spinal cord injury,Neuropath ic pain syndrome [...] Date Resolved Date Alonso catheter in place 09/19/202012/2020 alf (current) use of opiate analgesic 03/30/2018 03/09/2020 [...] week 09/10/2020 How often do you attend sikh or christianity serv ices? 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 Gender Identity Not on file Sexual Orientation [...] 09/20/2004 ZOSTER VACCINE (1 of 2) 09/20/2009 DIABETES HBA1C Q 6 MONTHS 05/24/2021 11/21/2020 INFLUENZA VACCINE (#1) 2025 08/19/2020, 2018 RSV VACCINE (60+ or ) (1 - 1-dose 75+ series) 09/20/2034 Procedures Procedure Name Priority Date/Time Associated Diagnosis Comments HEMOGLOBIN A1C Routine 11/21/2020 4:12 PM CDT Hyperglycemia from Last 3 Months or Most Recently Relevant to Health Maintenance Results * (ABNORMAL) HEMOGLOBIN A1C (11/21/2020 4:12 PM CDT) HEMOGLOBIN A1C 10.2(H) See Comment % 11/22/2020 8:26 PM CDT [facility] EST. AVG GLUCOSE, A1C 246 mg/dL 11/22/2020 8:26 PM CDT [facility] Blood Collection / Unknown 11/21/2020 4:12 PM CDT 11/22/2020 7:56 PM CDT Narrative [facility] - 11/22/2020 8:26 PM CDT HGB A1C INTERPRETATION NORMAL: <5.7% PRE-DIABETES: 5.7 - 6.4% DIABETES: 6.5% OR GREATER Falsely low A1C measurements can occur when: 1. Anemia and/or hemolytic anemia is present. 2. Hemoglobin variants present. 3. Renal failure. 4. Transfusion of blood product in the last 120 days. We recommend ordering a fructosamine test([id number]) to more accurately assess glycemic status if any of the above conditions are present. Jonathan Pham MD CHEMISTRY ORDERABLES Qiana perez Result Performing Organization Address City/State/[facility] Co de Phone Number [facility] CLIA# [id number] [address] [place] [phone] from Last 3 Months or Most Recently Relevant to Health Maintenance Insurance [address] [place] [address] [place] [address] [place] Advance Directives For more information, please contact: [phone] * Full Code (Latest Code Status on File) Date Activated Date Inactivated Comments 09/10/2020 1:00 AM 09/11/2020 4:50 PM * Full Code Date Activated Date Inactivated Comments 09/11/2017 6:03 AM 09/14/2017 5:20 PM Care Teams Database Administration Manager Relationship Specialty Start Date End Date Jonathan Pham MD [address] [facility] [address] [place] [phone] PCP - General Family Practice 03/01/18
--- OUTSIDE RECORDS SUMMARY | 2025-04-19 04:34 | XMS_ITS | Encounter Summary ---
Author Organization [facility] Address [address] [place] [address] Care Team Providers Care Interactive Video Technician Name Role Phone Jonathan Pham MD Primary Care Provider [phone] [phone] Encounter Details Date Type Department Care Team (Late st Contact Info) Description 11/24/2007 Outpatient Historical [facility] DEFAULT DEPARTMENT Awilda Ulloa MD [address] [address] Social History Tobacco Use Types Packs/Day Years Used Date Smoking Tobacco: Never Assessed Sex and Gender Information Value Date Recorded Sex Assigned at Not on file 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 Gender Identity Not on file Sexual Orientation Not on file documented as of this encounter Plan of Treatment Not on file documented as of this encounter Visit Diagnoses Not on filedocumented in this encounter Additional Health Concerns Infection Onset Date Last Indicated Resolved Time R/O COVID-19 08/19/2020 08/19/2020 08/20/2020 1:44 PM SAP PP CONSULTANT documented as of this encounter Care Teams Interactive Video Technician Relationship Specialty Start Date End Date Jonathan Pham MD [address] [facility] [address] [place] [phone] PCP - General Family Practice 03/01/18 documented as of this encounter
--- OUTSIDE RECORDS SUMMARY | 2025-04-19 04:34 | XMS_ITS | Encounter Summary ---
Author Organization [facility] Address [address] 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
--- OUTSIDE RECORDS SUMMARY | 2025-04-19 04:34 | XMS_ITS | Encounter Summary ---
Author Organization [facility] Address [address] [place] [address] Care Team Providers Care Manager Deli Name Role Phone Jonathan Pham MD Primary Care Provider [phone] [phone] Encounter Details Date Type Department Care Team (Late st Contact Info) Description 09/06/2007 Outpatient Historical [facility] [address] [place] [address] Donnell Morales MD [address] [facility] [address] [place] [address] Social History Tobacco Use Types Packs/Day Years Used Date Smoking Tobacco: Never Assessed Sex and Gender Information Value Date Recorded Sex Assigned at Not on file Legal Sex Male 6:19 AM RN TESTING Gender Identity Not on file Sexual Orientation [...] 09/23/2007 10:32 , A, 635 Document #: [id number] cc: Marcel Madrid M.D. TESTING documented in this encounter Plan of Treatment Not on file documented as of this encounter Visit Diagnoses Not on filedocumented in this encounter Additional Health Concerns Infection Onset Date Last Indicated Resolved Time R/O COVID-19 08/19/2020 08/19/2020 08/20/2020 1:44 PM RN TESTING documented as of this encounter Care Teams Manager Deli Relationship Specialty Start Date End Date Jonathan Pham MD [address] [phone] PCP - General Family Practice 03/01/18 documented as of this encounter
--- OUTSIDE RECORDS SUMMARY | 2025-04-19 04:34 | XMS_ITS | Encounter Summary ---
Author Organization [facility] Address [address] [place] [address] Care Team Providers Care Mat Machine Tender Name Role Phone Jonathan Pham MD Primary Care Provider [phone] Encounter Details Date Type Department Care Team (Latest Contact Info) Description 04/21/2007 Outpatient Historical [facility] [address] [place] [address] [place] [address] Awilda Ulloa MD [address] [place] [address] Other Postoperative Infection (Primary Dx) Social History Tobacco Use Types Packs/Day Years Used Date Smoking Tobacco: Never Assessed Sex and Gender Information Value Date Recorded Sex Assigned at Not on file 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 Gender Identity Not on file Sexual Orientation Not on file documented as of this encounter Plan of Treatment Not on file documented as of this encounter Visit Diagnoses Diagnosis Other postoperative infection- Primary documented in this encounter Additional Health Concerns Infection Onset Date Last Indicated Resolved Time R/O COVID-19 08/19/2020 08/19/2020 08/20/2020 1:44 PM DIGITAL IMAGER documented as of this encounter Care Teams Mat Machine Tender Relationship Specialty Start Date End Date Jonathan Pham MD [address] [phone] PCP - General Family Practice 03/01/18 documented as of this encounter
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
--- OUTSIDE RECORDS SUMMARY | 2025-04-19 04:34 | XMS_ITS | Encounter Summary ---
Author Organization [facility] Address [address] Chavez: Epic [place] [address] Care Team Providers Care X Ray Technologist Name Role Phone Jonathan Pham MD Primary Care Provider [phone] Encounter Details Date Type Department Care Team (Late st Contact Info) Description 04/18/2007 Outpatient Historical Damari Caballero, Tobi De La Fuente MD [address] [place] [address] Social History Tobacco Use Types Packs/Day Years Used Date Smoking Tobacco: Never Assessed Sex and Gender Information Value Date Recorded Sex Assigned at Not on file Legal Sex Male 6:19 AM EARLY CHILDHOOD SERVICES COORDINATOR Gender Identity Not on file Sexual Orientation [...] R/O COVID-19 08/19/2020 08/19/2020 08/20/2020 1:44 PM EARLY CHILDHOOD SERVICES COORDINATOR documented as of this encounter Care Teams X Ray Technologist Relationship Specialty Start Date End Date Jonathan Pham MD [address] [phone] PCP - General Family Practice 03/01/18 documented as of this encounter
--- OUTSIDE RECORDS SUMMARY | 2025-04-19 04:34 | XMS_ITS | Encounter Summary ---
Author Organization [facility] Address [address] [place] [address] Care Team Providers Care Auto Tune Up Mechanic Name Role Phone Jonathan Pham MD Primary Care Provider [phone] [phone] Encounter Details Date Type Department Care Team (Late st Contact Info) Description 05/09/2007 Outpatient [facility] Physical Med and Rehab[address] [address] Social History Tobacco Use Types Packs/Day Years Used Date Smoking Tobacco: Never Assessed Sex and Gender Information Value Date Recorded Sex Assigned at Not on file Legal Sex Male 6:19 AM PROBATION AND PAROLE OFFICER Gender Identity Not on file Sexual Orientation Not on file documented as of this encounter Plan of Treatment Not on file documented as of this encounter Visit Diagnoses Not on filedocumented in this encounter Additional Health Concerns Infection Onset Date Last Indicated Resolved Time R/O COVID-19 08/19/2020 08/19/2020 08/20/2020 1:44 PM PROBATION AND PAROLE OFFICER documented as of this encounter Care Teams Auto Tune Up Mechanic Relationship Specialty Start Date End Date Jonathan Pham MD [address] [phone] PCP - General Family Practice 03/01/18 documented as of this encounter
--- OUTSIDE RECORDS SUMMARY | 2025-04-19 04:34 | XMS_ITS | Encounter Summary ---
Author Organization [facility] Address [address] [place] [address] Care Team Providers Care Oxygen Furnace Operator Name Role Phone Jonathan Pham MD Primary Care Provider [phone] Encounter Details Date Type Department Care Team (Latest Contact Info) Description 04/21/2007 Outpatient Historical [facility] [address] [place] [address] Awilda Ulloa MD [address] [address] Aftercare Trauma Surgery (Primary Dx) Social History Tobacco Use Types Packs/Day Years Used Date Smoking Tobacco: Never Assessed Sex and Gender Information Value Date Recorded Sex Assigned at Not on file Legal Sex Male 6:19 AM COLLAR FELLER Gender Identity Not on file Sexual Orientation Not on file documented as of this encounter Plan of Treatment Not on file documented as of this encounter Visit Diagnoses Diagnosis Aftercare trauma surgery- Primary Aftercare following surgery for injury and trauma documented in this encounter Additional Health Concerns Infection Onset Date Last Indicated Resolved Time R/O COVID-19 08/19/2020 08/19/2020 08/20/2020 1:44 PM COLLAR FELLER documented as of this encounter Care Teams Oxygen Furnace Operator Relationship Specialty Start Date End Date Jonathan Pham MD [address] [phone] PCP - General Family Practice 03/01/18 documented as of this encounter
--- OUTSIDE RECORDS SUMMARY | 2025-04-19 04:34 | XMS_ITS | Encounter Summary ---
Author Organization [facility] Address [address] Chavez: Epic [place] [address] Care Team Providers Care Pleat Patternmaker Name Role Phone Jonathan Pham MD Primary Care Provider [phone] Encounter Details Date Type Department Care Team (Late st Contact Info) Description 05/17/2007 Outpatient Historical Damari Caballero, Tobi De La Fuente MD [address] [place] [address] Social History Tobacco Use Types Packs/Day Years Used Date Smoking Tobacco: Never Assessed Sex and Gender Information Value Date Recorded Sex Assigned at Not on file Legal Sex Male 6:19 AM RESIN REMOVER Gender Identity Not on file Sexual Orientation [...] R/O COVID-19 08/19/2020 08/19/2020 08/20/2020 1:44 PM RESIN REMOVER documented as of this encounter Care Teams Pleat Patternmaker Relationship Specialty Start Date End Date Jonathan Pham MD [address] [phone] PCP - General Family Practice 03/01/18 documented as of this encounter
--- OUTSIDE RECORDS SUMMARY | 2025-04-19 04:34 | XMS_ITS | Encounter Summary ---
Author Organization [facility] Address [address] [place] [address] Care Team Providers Care Sofa Back Upholsterer Name Role Phone Jonathan Pham MD Primary Care Provider [phone] [phone] Encounter Details Date Type Department Care Team (Latest Contact Info) Description 04/26/2007 Outpatient Historical [facility] Infectious Disease [address] [place] [address] Donnell Morales MD [address] [facility] [address] [place] [address] Infection, Orth Device NEC ([facility]) (Primary Dx); Encounter for Long-Term (Current) Use of Antibiotics Social History Tobacco Use Types Packs/Day Years Used Date Smoking Tobacco: Never Assessed Sex and Gender Information Value Date Recorded Sex Assigned at Not on file Legal Sex Male 6:19 AM MARKETING OUTREACH COORDINATOR Gender Identity Not on file Sexual [...] R/O COVID-19 08/19/2020 08/19/2020 08/20/2020 1:44 PM MARKETING OUTREACH COORDINATOR documented as of this encounter Care Teams Sofa Back Upholsterer Relationship Specialty Start Date End Date Jonathan Pham MD [address] [address] PCP - General Family Practice 03/01/18 documented as of this encounter
--- OUTSIDE RECORDS SUMMARY | 2025-04-19 04:34 | XMS_ITS | Encounter Summary ---
Author Organization [facility] Address [address] Chavez: Epic [place] [address] Care Team Providers Care Warehouse Consultant Name Role Phone Jonathan Pham MD Primary Care Provider +1 [phone] Encounter Details Date Type Department Care Team (Late st Contact Info) Description 09/07/2007 Outpatient Historical Donnell Morales MD [address] [place] [address] Social History Tobacco Use Types Packs/Day Years Used Date Smoking Tobacco: Never Assessed Sex and Gender Information Value Date Recorded Sex Assigned at Not on file Legal Sex Male 6:19 AM REEL SLITTER Gender Identity Not on file Sexual Orientation Not on file documented as of this encounter Plan of Treatment Not on file documented as of this encounter Procedures Procedure Name Priority Date/Time Associated Diagnosis Comments C-REACTIVE PROTEIN Routine 09/07/2007 1: 41 PM REEL SLITTER documented in this encounter Results * (ABNORMAL) C-REACTIVE PROTEIN (09/07/2007 1:41 PM REEL SLITTER) CRP 5.04(H) 0.00 - 1.00 mg/dL [facility] Blood specimen (specimen) 09/07/2007 1:41 PM REEL SLITTER 09/07/2007 9:53 PM REEL SLITTER us Donnell Morales MD CHEMISTRY ORDERABLES Final Result [facility] [address] [place] [address] documented in this encounter Visit Diagnoses Not on filedocumented in this encounter Additional Health Concerns Infection Onset Date Last Indicated Resolved Time R/O COVID-19 08/19/2020 08/19/2020 08/20/2020 1:44 PM REEL SLITTER documented as of this encounter Care Teams Warehouse Consultant Relationship Specialty Start Date End Date Jonathan Pham MD [address] [facility] [address] [place] [phone] PCP - General Family Practice 03/01/18 documented as of this encounter
--- OUTSIDE RECORDS SUMMARY | 2025-04-19 04:34 | XMS_ITS | Encounter Summary ---
Author Organization [facility] Address [address] [place] [address] Care Team Providers Care Wood Machine Carver Name Role Phone Jonathan Pham MD Primary Care Provider +1 -[phone] Encounter Details Date Type Department Care Team (Latest Contact Info) Description 02/13/2007 Outpatient Historical [facility] [address] [place] [address] [facility]BULANCE, [facility] Paraplegia ([facility] (Primary Dx) Social History Tobacco Use Types Packs/Day Years Used Date Smoking Tobacco: Never Assessed Sex and Gender Information Value Date Recorded Sex Assigned at Not on file Legal Sex Male 6:19 AM MANAGER ADMINISTRATION Gender Identity Not on file Sexual Orientation Not on file documented as of this encounter Plan of Treatment Not on file documented as of this encounter Visit Diagnoses Diagnosis Paraplegia- Primary documented in this encounter Additional Health Concerns Infection Onset Date Last Indicated Resolved Time R/O COVID-19 08/19/2020 08/19/2020 08/20/2020 1:44 PM MANAGER ADMINISTRATION documented as of this encounter Care Teams Wood Machine Carver Relationship Specialty Start Date End Date Jonathan Pham MD [address] [facility] [address] [place] [address] PCP - General Family Practice 03/01/18 documented as of this encounter
--- OUTSIDE RECORDS SUMMARY | 2025-04-19 04:34 | XMS_ITS | Encounter Summary ---
Author Organization [facility] Address [address] Chavez: Epic [place] [address] Care Team Providers Care Parachute Line Tier Name Role Phone Jonathan Pham MD Primary Care Provider +1 [phone] Encounter Details Date Type Department Care Team (Late st Contact Info) Description 05/25/2007 Outpatient Historical Donnell Morales MD [address] [place] [address] Social History Tobacco Use Types Packs/Day Years Used Date Smoking Tobacco: Never Assessed Sex and Gender Information Value Date Recorded Sex Assigned at Not on file Legal Sex Male 6:19 AM PATENT LEGAL ASSISTANT Gender Identity Not on file Sexual Orientation Not on file documented as of this encounter Plan of Treatment Not on file documented as of this encounter Procedures Procedure Name Priority Date/Time Associated Diagnosis Comments C-REACTIVE PROTEIN Routine 05/25/2007 12 :11 PM PATENT LEGAL ASSISTANT documented in this encounter Results * (ABNORMAL) C-REACTIVE PROTEIN (05/25/2007 12:11 PM PATENT LEGAL ASSISTANT) CRP 1.19(H) 0.00 - 1.00 mg/dL INTERFACE SYSTEM 05/25/2007 12:1 1 PM PATENT LEGAL ASSISTANT us Donnell Morales MD CHEMISTRY ORDERABLES Edite d INTERFACE SYSTEM Refer to clinic/hospital department documented in this encounter Visit Diagnoses Not on filedocumented in this encounter Additional Health Concerns Infection Onset Date Last Indicated Resolved Time R/O COVID-19 08/19/2020 08/19/2020 08/20/2020 1:44 PM PATENT LEGAL ASSISTANT documented as of this encounter Care Teams Parachute Line Tier Relationship Specialty Start Date End Date Jonathan Pham MD [address] [address] PCP - General Family Practice 03/01/18 documented as of this encounter
--- OUTSIDE RECORDS SUMMARY | 2025-04-19 04:34 | XMS_ITS | Encounter Summary ---
Author Organization [facility] Address [address] Chavez: Epic [place] [address] Care Team Providers Care Data Keyer Name Role Phone Jonathan Pham MD Primary Care Provider +1 [phone] Encounter Details Date Type Department Care Team (Late st Contact Info) Description 04/11/2007 Outpatient Historical Damari Caballero, Tobi De La Fuente MD [address] [place] [address] Social History Tobacco Use Types Packs/Day Years Used Date Smoking Tobacco: Never Assessed Sex and Gender Information Value Date Recorded Sex Assigned at Not on file Legal Sex Male 6:19 AM AIRPORT ATTENDANT Gender Identity Not on file Sexual Orientation [...] R/O COVID-19 08/19/2020 08/19/2020 08/20/2020 1:44 PM AIRPORT ATTENDANT documented as of this encounter Care Teams Data Keyer Relationship Specialty Start Date End Date Jonathan Pham MD [address] [phone] PCP - General Family Practice 03/01/18 documented as of this encounter
--- OUTSIDE RECORDS SUMMARY | 2025-04-19 04:34 | XMS_ITS | Encounter Summary ---
Author Organization [facility] Address [address] [place] [address] Care Team Providers Care Carbonation Equipment Operator Name Role Phone Jonathan Pham MD Primary Care Provider +1 [phone] Encounter Details Date Type Department Care Team (Latest Contact Info) Description 05/04/2007 Outpatient Historical [facility] Infectious Disease [address] [place] [address] Donnell Morales MD [address] [facility] [address] [place] [address] Infection, Orth Device NEC (CMS/[facility]) (Primary Dx); Encounter for Long-Term (Current) Use of Antibiotics Social History Tobacco Use Types Packs/Day Years Used Date Smoking Tobacco: Never Assessed Sex and Gender Information Value Date Recorded Sex Assigned at Not on file Legal Sex Male 6:19 AM INTEGRATION SPECIALIST Gender Identity Not on file Sexual [...] R/O COVID-19 08/19/2020 08/19/2020 08/20/2020 1:44 PM INTEGRATION SPECIALIST documented as of this encounter Care Teams Carbonation Equipment Operator Relationship Specialty Start Date End Date Jonathan Pham MD [address] [address] PCP - General Family Practice 03/01/18 documented as of this encounter
--- OUTSIDE RECORDS SUMMARY | 2025-04-19 04:34 | XMS_ITS | Encounter Summary ---
Author Organization [facility] Address [address] [place] [address] Care Team Providers Care Tax Services Manager Name Role Phone Jonathan Pham MD Primary Care Provider +1 -[phone] Encounter Details Date Type Department Care Team (Late st Contact Info) Description 09/06/2007 [facility]patient [facility] [address] [place] [address] Marcel Madrid MD [address] [place] [phone] Social History Tobacco Use Types Packs/Day Years Used Date Smoking Tobacco: Never Assessed Sex and Gender Information Value Date Recorded Sex Assigned at Not on file Legal Sex Male 6:19 AM COMPUTER ASSEMBLER Gender Identity Not on file Sexual Orientation Not on file documented as of this encounter Plan of Treatment Not on file documented as of this encounter Visit Diagnoses Not on filedocumented in this encounter Additional Health Concerns Infection Onset Date Last Indicated Resolved Time R/O COVID-19 08/19/2020 08/19/2020 08/20/2020 1:44 PM COMPUTER ASSEMBLER documented as of this encounter Care Teams Tax Services Manager Relationship Specialty Start Date End Date Jonathan Pham MD [address] [facility] [address] [place] [phone] PCP - General Family Practice 03/01/18 documented as of this encounter
--- OUTSIDE RECORDS SUMMARY | 2025-04-19 04:34 | XMS_ITS | Encounter Summary ---
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) Social History Tobacco Use Types Packs/Day Years Used Date Smoking Tobacco: Never Assessed Sex and Gender Information Value Date Recorded Sex Assigned at Not on file Legal Sex Male 6:19 AM CARDIAC CATH RN Gender Identity Not on file Sexual [...] Goal INR 3.0; range 2.5 - 3.5 POST-MN Goal INR 2.5; range 2.0 - 3.0 or Goal 3.0; range 2.5 - 3.5 Atrial Fibrillation Goal INR 2.5; range 2.0 - 3.0 Ischemic Stroke Goal INR 2.5; range 2.0 - 3.0 For additional information see Guidelines for Anticoagulation available from the pharmacy Michael Chaudhry 03/22/2007 5:39 AM CDT Rajinder Posada MD HEMATOLOGY ORDERABLES Edited Performing Organization Address [facility] Phone Number INTERFACE SYSTEM Refer to clinic/hospital department * CLOSTRIDIUM DIFFICILE TOXIN (03/21/2007 6:52 PM CDT) C DIFFICILE TOXIN Negative Negative INTERFACE SYSTEM 03/21/2007 6:52 PM CDT Result [facility] Allegra Chester MD MICROBIOLOGY - GENERAL ORDERABLE S Edited Performing Organization Address [facility] Phone Number INTERFACE SYSTEM Refer to [...] Goal INR 3.0; range 2.5 - 3.5 POST-MN Goal INR 2.5; range 2.0 - 3.0 [...] Goal INR 3.0; range 2.5 - 3.5 POST-MN Goal INR 2.5; range 2.0 - 3.0 or Goal 3.0; range 2.5 - 3.5 Atrial Fibrillation Goal INR 2.5; range 2.0 - 3.0 Ischemic Stroke Goal INR 2.5; range 2.0 - 3.0 For additional information see Guidelines for Anticoagulation available from the pharmacy [facility] 03/20/2007 6:31 AM CDT Result Brianna Posada MD HEMATOLOGY ORDERABLES Edited Performing Organization Address [facility] de Phone Number INTERFACE SYSTEM [...] Goal INR 3.0; range 2.5 - 3.5 POST-MN Goal INR 2.5; range 2.0 - 3.0 or Goal 3.0; range 2.5 - 3.5 Atrial Fibrillation Goal INR 2.5; range 2.0 - 3.0 Ischemic Stroke Goal INR 2.5; range 2.0 - 3.0 For additional information see Guidelines for Anticoagulation available from the pharmacy [facility]. 03/19/2007 6:50 AM CDT Result Brianna Posada MD HEMATOLOGY ORDERABLES Edited Performing Organization Address [facility] de Phone Number INTERFACE SYSTEM [...] CHEMISTRY ORDERABLES Edited Performing Organization Address [facility] Phone Number INTERFACE SYSTEM Refer to [...] CHEMISTRY ORDERABLES Edited Performing Organization Address [facility] Phone Number INTERFACE SYSTEM Refer to [...] Goal INR 3.0; range 2.5 - 3.5 POST-MN Goal INR 2.5; range 2.0 - 3.0 or Goal 3.0; range 2.5 - 3.5 Atrial Fibrillation Goal INR 2.5; range 2.0 - 3.0 Ischemic Stroke Goal INR 2.5; range 2.0 - 3.0 For additional information see Guidelines for Anticoagulation available from the pharmacy Michael Chaudhry 03/18/2007 6:38 AM CDT Rajinder Posada MD HEMATOLOGY ORDERABLES Edited Performing Organization Address [facility] Phone Number INTERFACE SYSTEM Refer to [...] CHEMISTRY ORDERABLES Edited Performing Organization Address [facility] Phone Number INTERFACE SYSTEM Refer to [...] MD HEMATOLOGY ORDERABLES Edited Performing Organization Address [facility] de Phone Number INTERFACE SYSTEM [...] HEMATOLOGY ORDERABLES Edited Performing Organization Address [facility] de Phone Number INTERFACE SYSTEM [...] R/O COVID-19 08/19/2020 08/19/2020 08/20/2020 1:44 PM CARDIAC CATH RN documented as of this encounter Care Teams Endless Track Vehicle Mechanic Relationship Specialty Start Date End Date Jonathan Pham MD [address] [phone] PCP - General Family Practice 03/01/18 documented as of this encounter
--- OUTSIDE RECORDS SUMMARY | 2025-04-19 04:34 | XMS_ITS | Encounter Summary ---
Author Organization [facility] Address [address] [place] [address] Care Team Providers Care Sap Treasury Consultant Name Role Phone Jonathan Pham MD Primary Care Provider +1 -[phone] Encounter Details Date Type Department Care Team (Late st Contact Info) Description 06/15/2007 Outpatient Historical [facility] [address] [place] [address] Awilda Ulloa MD [address] [address] Social History Tobacco Use Types Packs/Day Years Used Date Smoking Tobacco: Never Assessed Sex and Gender Information Value Date Recorded Sex Assigned at Not on file Legal Sex Male 6:19 AM DISPATCHER MAINTENANCE SERVICE Gender Identity Not on file Sexual Orientation Not on file documented as of this encounter Plan of Treatment Not on file documented as of this encounter Visit Diagnoses Not on filedocumented in this encounter Additional Health Concerns Infection Onset Date Last Indicated Resolved Time R/O COVID-19 08/19/2020 08/19/2020 08/20/2020 1:44 PM DISPATCHER MAINTENANCE SERVICE documented as of this encounter Care Teams Sap Treasury Consultant Relationship Specialty Start Date End Date Jonathan Pham MD [address] [phone] PCP - General Family Practice 03/01/18 documented as of this encounter
--- OUTSIDE RECORDS SUMMARY | 2025-04-19 04:34 | XMS_ITS | Encounter Summary ---
Author Organization [facility] Address [address] [place] [address] Care Team Providers Care Datapower Developer Name Role Phone Jonathan Pham MD Primary Care Provider +1 -[phone] Encounter Details Date Type Department Care Team (Late st Contact Info) Description 06/30/2007 [facility]patient [facility] [address] [place] [address] Marcel Madrid MD [address] [place] [phone] Social History Tobacco Use Types Packs/Day Years Used Date Smoking Tobacco: Never Assessed Sex and Gender Information Value Date Recorded Sex Assigned at Not on file Legal Sex Male 6:19 AM CONCRETE SCULPTOR Gender Identity Not on file Sexual Orientation Not on file documented as of this encounter Plan of Treatment Not on file documented as of this encounter Visit Diagnoses Not on filedocumented in this encounter Additional Health Concerns Infection Onset Date Last Indicated Resolved Time R/O COVID-19 08/19/2020 08/19/2020 08/20/2020 1:44 PM CONCRETE SCULPTOR documented as of this encounter Care Teams Datapower Developer Relationship Specialty Start Date End Date Jonathan Pham MD [address] [facility] [address] [place] [phone] PCP - General Family Practice 03/01/18 documented as of this encounter
--- OUTSIDE RECORDS SUMMARY | 2025-04-19 04:34 | XMS_ITS | Encounter Summary ---
Author Organization [facility] Address [address] [place] [address] Care Team Providers Care Chain Maker Name Role Phone Jonathan Pham MD Primary Care Provider +1 -[phone] Encounter Details Date Type Department Care Team (Late st Contact Info) Description 05/09/2007 Outpatient Historical [facility] [address] [place] [address] Social History Tobacco Use Types Packs/Day Years Used Date Smoking Tobacco: Never Assessed Sex and Gender Information Value Date Recorded Sex Assigned at Not on file Legal Sex Male 6:19 AM IT SPECIALIST Gender Identity Not on file Sexual Orientation Not on file documented as of this encounter Plan of Treatment Not on file documented as of this encounter Visit Diagnoses Not on filedocumented in this encounter Additional Health Concerns Infection Onset Date Last Indicated Resolved Time R/O COVID-19 08/19/2020 08/19/2020 08/20/2020 1:44 PM IT SPECIALIST documented as of this encounter Care Teams Chain Maker Relationship Specialty Start Date End Date Jonathan Pham MD [address] [phone] PCP - General Family Practice 03/01/18 documented as of this encounter
--- OUTSIDE RECORDS SUMMARY | 2025-04-19 04:34 | XMS_ITS | Encounter Summary ---
Author Organization [facility] Address [address] [place] [address] Care Team Providers Care Couples Therapist Name Role Phone Jonathan Pham MD Primary Care Provider +1 -[phone] Encounter Details Date Type Department Care Team (Latest Contact Info) Description 05/09/[address] [facility] [address] [place] [address] [place] [address] Noelle Wise PA [address] [place] [place] [address] Other Orthopedic Aftercare (Primary Dx) Social History Tobacco Use Types Packs/Day Years Used Date Smoking Tobacco: Never Assessed Sex and Gender Information Value Date Recorded Sex Assigned at Not on file Legal Sex Male 6:19 AM METAL REFINER Gender Identity Not on file Sexual Orientation Not on file documented as of this encounter Plan of Treatment Not on file documented as of this encounter Visit Diagnoses Diagnosis Other orthopedic aftercare(V54.89)- Primary Other orthopedic aftercare documented in this encounter Additional Health Concerns Infection Onset Date Last Indicated Resolved Time R/O COVID-19 08/19/2020 08/19/2020 08/20/2020 1:44 PM METAL REFINER documented as of this encounter Care Teams Couples Therapist Relationship Specialty Start Date End Date Jonathan Pham MD [address] [facility] [address] [place] [phone] PCP - General Family Practice 8/14/18 documented as of this encounter
--- OUTSIDE RECORDS SUMMARY | 2025-04-19 04:34 | XMS_ITS | Encounter Summary ---
Author Organization [facility] Address [address] [place] [address] Care Team Providers Care Aviation Mechanic Name Role Phone Jonathan Pham MD Primary Care Provider +1 -[phone] Encounter Details Date Type Department Care Team (Latest Contact Info) Description 06/13/2007 Outpatient Historical [facility] Infectious Disease [address] [place] [address] Donnell Morales MD [address] [facility] [address] [place] [address] Infection, Orth Device NEC (CMS/[facility]) (Primary Dx); Encounter for Long-Term (Current) Use of Antibiotics Social History Tobacco Use Types Packs/Day Years Used Date Smoking Tobacco: Never Assessed Sex and Gender Information Value Date Recorded Sex Assigned at Not on file Legal Sex Male 6:19 AM MECHANIC MARINE ENGINE Gender Identity Not on file Sexual Orientation [...] R/O COVID-19 08/19/2020 08/19/2020 08/20/2020 1:44 PM MECHANIC MARINE ENGINE documented as of this encounter Care Teams Aviation Mechanic Relationship Specialty Start Date End Date Jonathan Pham MD [address] [address] PCP - General Family Practice 03/01/18 documented as of this encounter
--- OUTSIDE RECORDS SUMMARY | 2025-04-19 04:34 | XMS_ITS | Encounter Summary ---
Author Organization [facility] Address [address] [place] [address] Care Team Providers Care Wrapper Layer Name Role Phone Jonathan Pham MD Primary Care Provider +1 -[phone] Encounter Details Date Type Department Care Team (Late st Contact Info) Description 03/31/2007 Outpatient [facility] [address] [place] [address] AMBULANCE, [facility] Encounter for Other Specified Aftercare (Primary Dx) Social History Tobacco Use Types Packs/Day Years Used Date Smoking Tobacco: Never Assessed Sex and Gender Information Value Date Recorded Sex Assigned at Not on file Legal Sex Male 6:19 AM TOW MOTOR DRIVER Gender Identity Not on file Sexual Orientation Not on file documented as of this encounter Plan of Treatment Not on file documented as of this encounter Visit Diagnoses Diagnosis Encounter for other specified aftercare- Primary documented in this encounter Additional Health Concerns Infection Onset Date Last Indicated Resolved Time R/O COVID-19 08/19/2020 08/19/2020 08/20/2020 1:44 PM TOW MOTOR DRIVER documented as of this encounter Care Teams Wrapper Layer Relationship Specialty Start Date End Date Jonathan Pham MD [address] [facility] [address] [place] [address] PCP - General Family Practice 03/01/18 documented as of this encounter
--- OUTSIDE RECORDS SUMMARY | 2025-04-19 04:34 | XMS_ITS | Encounter Summary ---
Author Organization [facility] Address [address] [place] [address] Care Team Providers Care Transition Advisor Name Role Phone Jonathan Pham MD Primary Care Provider [phone] [phone] Encounter Details Date Type Department Care Team (Latest Contact Info) Description 03/29/2007 Outpatient Historical [facility] [place] [address] [facility] [address] [place] [address] Awilda Ulloa MD [address] [place] [address] Other Postoperative Infection (Primary Dx) Social History Tobacco Use Types Packs/Day Years Used Date Smoking Tobacco: Never Assessed Sex and Gender Information Value Date Recorded Sex Assigned at Not on file Legal Sex Male 6:19 AM PERFORMANCE IMPROVEMENT ANALYST Gender Identity Not on file Sexual [...] MD HEMATOLOGY ORDERABLES Edited Performing Organization Address City/[facility] [address]/[facility] de Phone Number INTERFACE SYSTEM Refer [...] Goal INR 3.0; range 2.5 - 3.5 POST-OR Goal INR 2.5; range 2.0 - 3.0 [...] C-REACTIVE PROTEIN (03/29/2007 1:19 PM CDT) Pathologist [facility] CRP 12.30(H) 0.00 - 1.00 mg/dL INTERFACE SYSTEM 03/29/2007 1:19 PM CDT Awilda Ulloa MD CHEMISTRY ORDERABLES Edited Performing Organization Address City/[facility] [address]/ZIP Co de Phone Number INTERFACE SYSTEM Refer to clinic/hospital department * (ABNORMAL) SEDIMENTATION RATE (03/29/2007 1:19 PM CDT) Pathologist [facility] ESR (SEDIMENTATION RATE) 54(H) 0 - 20 mm/hr INTERFACE SYSTEM 03/29/2007 1:19 PM CDT Awilda Ulloa MD HEMATOLOGY ORDERABLES Edited Performing Organization Address [facility] [address]/[facility] de Phone Number INTERFACE SYSTEM Refer to clinic/hospital department * (ABNORMAL) CBC WITH DIFFERENTIAL (03/29/2007 1:19 PM CDT) Pathologist [facility] WBC 9.1 4.5 - 11.0 K/ul INTERFACE [...] R/O COVID-19 08/19/2020 08/19/2020 08/20/2020 1:44 PM PERFORMANCE IMPROVEMENT ANALYST documented as of this encounter Care Teams Transition Advisor Relationship Specialty Start Date End Date Jonathan Pham MD [address] [place] [address] PCP - General Family Practice 03/01/18 documented as of this encounter
--- OUTSIDE RECORDS SUMMARY | 2025-04-19 04:34 | XMS_ITS | Encounter Summary ---
Author Organization [facility] Address [address] [place] [address] Care Team Providers Care Firer Diesel Locomotive Name Role Phone Jonathan Pham MD Primary Care Provider [phone] [phone] Encounter Details Date Type Department Care Team (Late st Contact Info) Description 05/09/2007 Outpatient Historical [facility] Social History Tobacco Use Types Packs/Day Years Used Date Smoking Tobacco: Never Assessed Sex and Gender Information Value Date Recorded Sex Assigned at Not on file Legal Sex Male 6:19 AM PANTOGRAPH MACHINE SET UP OPERATOR Gender Identity Not on file Sexual Orientation Not on file documented as of this encounter Plan of Treatment Not on file documented as of this encounter Visit Diagnoses Not on filedocumented in this encounter Additional Health Concerns Infection Onset Date Last Indicated Resolved Time R/O COVID-19 08/19/2020 08/19/2020 08/20/2020 1:44 PM PANTOGRAPH MACHINE SET UP OPERATOR documented as of this encounter Care Teams Firer Diesel Locomotive Relationship Specialty Start Date End Date Jonathan Pham MD [address] [facility] [address] [place] [address] PCP - General Family Practice 03/01/18 documented as of this encounter
--- OUTSIDE RECORDS SUMMARY | 2025-04-19 04:34 | XMS_ITS | Encounter Summary ---
Author Organization [facility] Address [address] [place] [address] Care Team Providers Care Sister Superior Name Role Phone Jonathan Pham MD Primary Care Provider [phone] [phone] Encounter Details Date Type Department Care Team (Latest Contact Info) Description 03/31/2007 Outpatient Historical [facility] [address] [place] [address] Awilda Ulloa MD [address] [address] Aftercare Trauma Surgery (Primary Dx) Social History Tobacco Use Types Packs/Day Years Used Date Smoking Tobacco: Never Assessed Sex and Gender Information Value Date Recorded Sex Assigned at Not on file Legal Sex Male 6:19 AM MEDICAL LABORATORY MANAGER Gender Identity Not on file Sexual Orientation Not on file documented as of this encounter Plan of Treatment Not on file documented as of this encounter Visit Diagnoses Diagnosis Aftercare trauma surgery- Primary Aftercare following surgery for injury and trauma documented in this encounter Additional Health Concerns Infection Onset Date Last Indicated Resolved Time R/O COVID-19 08/19/2020 08/19/2020 08/20/2020 1:44 PM MEDICAL LABORATORY MANAGER documented as of this encounter Care Teams Sister Superior Relationship Specialty Start Date End Date Jonathan Pham MD [address] [phone] PCP - General Family Practice 03/01/18 documented as of this encounter
--- OUTSIDE RECORDS SUMMARY | 2025-04-19 04:34 | XMS_ITS | Encounter Summary ---
Author Organization [facility] Address [address] [place] [address] Care Team Providers Care Seed Laboratory Technician Name Role Phone Jonathan Pham MD Primary Care Provider [phone] [phone] Encounter Details Date Type Department Care Team (Latest Contact Info) Description 11/23/[address] 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 Date Signed: 11/24/07 Procedure Note Bhnau Zepeda - 11/24/2007 Fusion changes with posterior rods are present extending from [id number] through T8. The hardware is unremarkable in appearance. Exam appears unchanged compared with May2000. The old compression fractures are noted. Impression: Apparently stable exam. Dictated By: Bhanu Zepeda M.D. Electronically Signed By: Bhanu Zepeda M.D. Date Signed: 11/24/07 [facility] ORDERABLES Final Result documented in this encounter Visit Diagnoses Diagnosis Embolism and thrombosis of arteries of lower extremity Arthrodesis status intermediate accountant (current) use of anticoagulants Long-term (current) use of anticoagulants documented in this encounter Additional Health Concerns Infection Onset Date Last Indicated Resolved Time R/O COVID-19 08/19/2020 08/19/2020 08/20/2020 1:44 PM PROFESSIONAL PROGRAMMER ANALYST documented as of this encounter Care Teams Seed Laboratory Technician Relationship Specialty Start Date End Date Jonathan Pham MD [address] [facility] [address] [place] [phone] PCP - General Family Practice 03/01/18 documented as of this encounter
--- OUTSIDE RECORDS SUMMARY | 2025-04-19 04:34 | XMS_ITS | Encounter Summary ---
Author Organization [facility] Address [address] 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
--- OUTSIDE RECORDS SUMMARY | 2025-04-19 04:34 | XMS_ITS | Encounter Summary ---
Author Organization [facility] Address [address] [place] [address] Care Team Providers Care Air Conditioning Installer Name Role Phone Jonathan Pham MD Primary Care Provider +1 [phone] Encounter Details Date Type Department Care Team (Late st Contact Info) Description 03/22/2007 Inpatient Historical HIS IN BED Marcel Madrid MD [facility] [place] [address] Other Specified Rehabilitation Procedure (Primary Dx) Social History Tobacco Use Types Packs/Day Years Used Date Smoking Tobacco: Never Assessed Sex and Gender Information Value Date Recorded Sex Assigned at Not on file 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 03/24/2007 12:0 5 PM CDT us Marcel Madrid MD HEMATOLOGY ORDERABLES Edited Performing Organization Address City/State/[place] Co de Phone Number INTERFACE SYSTEM Refer [...] Goal INR 3.0; range 2.5 - 3.5 POST-NM Goal INR 2.5; range 2.0 - 3.0 or Goal 3.0; range 2.5 - 3.5 Atrial Fibrillation Goal INR 2.5; range 2.0 - 3.0 Ischemic Stroke Goal INR 2.5; range 2.0 - 3.0 For additional information see Guidelines for Anticoagulation available from the pharmacy [facility] [place] 03/23/2007 4:20 PM CDT us Marcel Madrid MD HEMATOLOGY ORDERABLES Edited Performing Organization Address City/State/[place] Co de Phone Number INTERFACE SYSTEM Refer to clinic/hospital department documented in this encounter Visit Diagnoses Diagnosis Other specified rehabilitation procedure(V57.89)- Primary Other specified rehabilitation procedure documented in this encounter Additional Health Concerns Infection Onset Date Last Indicated Resolved Time R/O COVID-19 08/19/2020 08/19/2020 08/20/2020 1:44 PM THERMOSTATIC CONTROLS SUPERVISOR documented as of this encounter Care Teams Air Conditioning Installer Relationship Specialty Start Date End Date Jonathan Pham MD [address] [phone] PCP - General Family Practice 03/01/18 documented as of this encounter
--- OUTSIDE RECORDS SUMMARY | 2025-04-19 04:34 | XMS_ITS | Encounter Summary ---
Author Organization [facility] Address [address] [place] [address] Care Team Providers Care Chute Puller Name Role Phone Jonathan Pham MD Primary Care Provider [phone] [phone] Encounter Details Date Type Department Care Team (Late st Contact Info) Description 02/13/2007 Inpatient Historical [facility] IN BED Awilda Ulloa MD [address] [address] Kvng Braga MD NO ADDRESS ON FILE Closed Fracture of T1-T6 Level with Complete Lesion of Cord (Primary Dx) Social History Tobacco Use Types Packs/Day Years Used Date Smoking Tobacco: Never Assessed Sex and Gender Information Value Date Recorded Sex Assigned at Not on file Legal 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 Gender Identity Not on file Sexual Orientation [...] INTERFACE SYSTEM 02/19/2007 5:34 AM CDT us Kvng Braga MD POINT OF CARE TESTING Edite d Performing Organization Address City/[facility] Co mo Phone Number INTERFACE SYSTEM Refer to clinic/hospital department * (ABNORMAL) POC GLUCOSE (02/18/2007 8:29 PM CDT) GLUCOSE POC 120(H) 60 - 100 mg/dL INTERFACE SYSTEM 02/18/2007 8:29 PM CDT us Kvng Braga MD POINT OF CARE TESTING Edite d Performing Organization Address [facility] Phone Number INTERFACE SYSTEM Refer to clinic/hospital department * (ABNORMAL) POC GLUCOSE (02/18/2007 5:06 PM CDT) GLUCOSE POC 106(H) 60 - 100 mg/dL INTERFACE SYSTEM 02/18/2007 5:06 PM CDT us Kvng Braga MD POINT OF CARE TESTING Edite d Performing Organization Address [facility] Phone Number INTERFACE SYSTEM Refer to clinic/hospital department * POC GLUCOSE (02/18/2007 5:02 PM CDT) GLUCOSE POC 71 60 - 100 mg/dL INTERFACE SYSTEM 02/18/2007 5:02 PM CDT Result Brianna Braga MD POINT OF CARE TESTING Edite d Performing Organization Address City/[facility] de Phone Number INTERFACE SYSTEM Refer to clinic/hospital department * (ABNORMAL) HEMOGLOBIN AND HEMATOCRIT (02/18/2007 1:30 PM CDT) HEMOGLOBIN 9.3(L) 14.0 - 18.0 g/dL INTERFACE SYSTEM HEMATOCRIT 27.9(L) 41.0 - 53.0 % INTERFACE SYSTEM 02/18/2007 1:30 PM CDT us Kvng Braga MD HEMATOLOGY ORDERABLES Edite d Performing Organization Address [facility] Phone Number INTERFACE SYSTEM Refer to clinic/hospital department * (ABNORMAL) POC GLUCOSE (02/18/2007 11:35 AM CDT) GLUCOSE POC 111(H) 60 - 100 mg/dL INTERFACE SYSTEM 02/18/2007 11:3 5 AM CDT us Kvng Braga MD POINT OF CARE TESTING Edite d Performing Organization Address [facility] Phone Number INTERFACE SYSTEM Refer to clinic/hospital department * POC GLUCOSE (02/18/2007 6:10 AM CDT) GLUCOSE POC 100 60 - 100 mg/dL INTERFACE SYSTEM 02/18/2007 6:10 AM CDT us Kvng Braga MD POINT OF CARE TESTING Edite d Performing Organization Address [facility] Phone Number INTERFACE SYSTEM Refer to [...] HEMATOLOGY ORDERABLES Edite d Performing Organization Address [facility] Phone Number INTERFACE SYSTEM Refer to clinic/hospital department * (ABNORMAL) BASIC METABOLIC PANEL (02/18/2007 5:50 AM CDT) Pathologist [facility] GLUCOSE 98 70 - 110 mg/dL INTERFACE [...] MD CHEMISTRY ORDERABLES Edited Performing Organization Address [facility] Phone Number INTERFACE SYSTEM Refer to clinic/hospital department * (ABNORMAL) POC GLUCOSE (02/17/2007 10:25 PM CDT) GLUCOSE POC 126(H) 60 - 100 mg/dL INTERFACE SYSTEM 02/17/2007 10:2 5 PM CDT us Kvng Braga MD POINT OF CARE TESTING Edite d Performing Organization Address [facility] Phone Number INTERFACE SYSTEM Refer to clinic/hospital department * (ABNORMAL) POC GLUCOSE (02/17/2007 4:16 PM CDT) GLUCOSE POC 108(H) 60 - 100 mg/dL INTERFACE SYSTEM 02/17/2007 4:16 PM CDT us Kvng Braga MD POINT OF CARE TESTING Edite d Performing Organization Address [facility] Phone Number INTERFACE SYSTEM Refer to clinic/hospital department * (ABNORMAL) POC GLUCOSE (02/17/2007 12:21 PM CDT) GLUCOSE POC 155(H) 60 - 100 mg/dL INTERFACE SYSTEM 02/17/2007 12:2 1 PM CDT us Kvng Braga MD POINT OF CARE TESTING Edite d Performing Organization Address [facility] Phone Number INTERFACE SYSTEM Refer to clinic/hospital department * (ABNORMAL) POC GLUCOSE (02/16/2007 9:53 PM CDT) GLUCOSE POC 167(H) 60 - 100 mg/dL INTERFACE SYSTEM 02/16/2007 9:53 PM CDT Tobi Cardona Jr., MD POINT OF CARE TESTING E dited Performing Organization Address City/[facility] de Phone Number INTERFACE SYSTEM Refer to clinic/hospital department * (ABNORMAL) POC GLUCOSE (02/16/2007 4:03 PM CDT) GLUCOSE POC 121(H) 60 - 100 mg/dL INTERFACE SYSTEM 02/16/2007 4:03 PM CDT Tobi Cardona Jr., MD POINT OF CARE TESTING E dited Performing Organization Address [facility] Phone Number INTERFACE SYSTEM Refer to clinic/hospital department * (ABNORMAL) POC GLUCOSE (02/16/2007 10:53 AM CDT) GLUCOSE POC 143(H) 60 - 100 mg/dL INTERFACE SYSTEM 02/16/2007 10:5 3 AM CDT Tobi Cardona Jr., MD POINT OF CARE TESTING E dited Performing Organization Address [facility] Phone Number INTERFACE SYSTEM Refer to clinic/hospital department * (ABNORMAL) POC GLUCOSE (02/16/2007 7:21 AM CDT) GLUCOSE POC 165(H) 60 - 100 mg/dL INTERFACE SYSTEM 02/16/2007 7:21 AM CDT Tobi Cardona Jr., MD POINT OF CARE TESTING E dited Performing Organization Address [facility] Phone Number INTERFACE SYSTEM Refer to [...] MD CHEMISTRY ORDERABLES Edited Performing Organization Address [facility]/State/ZIP Co de Phone Number INTERFACE SYSTEM Refer [...] INTERFACE SYSTEM 02/16/2007 4:35 AM CDT us Kvng Braga MD HEMATOLOGY ORDERABLES Edite d INTERFACE SYSTEM Refer to clinic/hospital department * (ABNORMAL) POC GLUCOSE (02/15/2007 8:30 PM CDT) GLUCOSE POC 130(H) 60 - 100 mg/dL INTERFACE SYSTEM 02/15/2007 8:30 PM CDT Tobi Cardona Jr., MD POINT OF CARE TESTING E dited Performing Organization Address City/[facility]/ZIP Co de Phone Number INTERFACE SYSTEM Refer to clinic/hospital department * (ABNORMAL) POC GLUCOSE (02/15/2007 4:16 PM CDT) GLUCOSE POC 122(H) 60 - 100 mg/dL INTERFACE SYSTEM 02/15/2007 4:16 PM CDT Tobi Cardona Jr., MD POINT OF CARE TESTING E dited Performing Organization Address [facility] de Phone Number INTERFACE SYSTEM Refer to clinic/hospital department * (ABNORMAL) HEMOGLOBIN AND HEMATOCRIT (02/15/2007 1:22 PM CDT) HEMOGLOBIN 8.5(L) 14.0 - 18.0 g/dL INTERFACE SYSTEM Comment:called to or 8 at 13:27 HEMATOCRIT 25.0(L) 41.0 - 53.0 % INTERFACE SYSTEM 02/15/2007 1:22 PM CDT Kvng Braga MD HEMATOLOGY ORDERABLES Edite d Performing Organization Address [facility] de Phone Number INTERFACE SYSTEM Refer to clinic/hospital department * (ABNORMAL) POC ISTAT EG 7+ (02/15/2007 1:04 PM CDT) SPECIMEN TYPE Arterial INTERF MONA SYSTEM Comment: Test Performed By [id number] Sample not collected by [facility] Hemoglobin calculated [...] INTERF MONA SYSTEM Comment: Test Performed By [id number] Sample not collected by [facility] Hemoglobin calculated [...] TESTING COM E dited Performing Organization Address [facility] de Phone Number INTERFACE [...] MD CHEMISTRY ORDERABLES Edited Performing Organization Address [facility] de Phone Number INTERFACE [...] HEMATOLOGY ORDERABLES Edite d Performing Organization Address [facility] de Phone Number INTERFACE SYSTEM Refer to clinic/hospital department * POC GLUCOSE (02/15/2007 5:28 AM CDT) GLUCOSE POC 88 60 - 100 mg/dL INTERFACE SYSTEM 02/15/2007 5:28 AM CDT Result Brianna Braga MD POINT OF CARE TESTING Edite d Performing Organization Address [facility] Phone Number INTERFACE SYSTEM Refer to clinic/hospital department * POC GLUCOSE (02/14/2007 4:37 PM CDT) GLUCOSE POC 92 60 - 100 mg/dL INTERFACE SYSTEM 02/14/2007 4:37 PM CDT Result Brianna Braga MD POINT OF CARE TESTING Edite d Performing Organization Address [facility] de Phone Number INTERFACE SYSTEM Refer to clinic/hospital department * POC GLUCOSE (02/14/2007 12:34 PM CDT) GLUCOSE POC 89 60 - 100 mg/dL INTERFACE SYSTEM 02/14/2007 12:3 4 PM CDT Result Brianna Braga MD POINT OF CARE TESTING Edite d Performing Organization Address [facility] Phone Number INTERFACE SYSTEM Refer to [...] MD CHEMISTRY ORDERABLES Edited Performing Organization Address [facility] Phone Number INTERFACE SYSTEM Refer to [...] Goal INR 3.0; range 2.5 - 3.5 POST-[place] Goal INR 2.5; range 2.0 - 3.0 [...] HEMATOLOGY ORDERABLES Edite d Performing Organization Address City/[facility]/ZIP Co de Phone Number INTERFACE SYSTEM Refer [...] CARE TESTING Edite d Performing Organization Address [facility] Phone Number INTERFACE SYSTEM Refer to clinic/hospital department * PROTIME-INR (02/13/2007 8:38 PM CDT) Pathologist [facility] PROTIME 14.3 13.0 - 15.7 Secs INTERFACE SYSTEM Comment: As of 06 note change in normal range. INR 1.0 INTERFACE SYSTEM Comment: Expected Values for INR: DVT/PE Goal INR 2.5; range 2.0 - 3.0 Valve Replacement Tissue Goal INR 2.5; range 2.0 - 3.0 Mechanical Goal INR 3.0; range 2.5 - 3.5 POST-[place] Goal INR 2.5; range 2.0 - 3.0 or Goal 3.0; range 2.5 - 3.5 Atrial Fibrillation Goal INR 2.5; range 2.0 - 3.0 Ischemic Stroke Goal INR 2.5; range 2.0 - 3.0 For additional information see Guidelines for Anticoagulation available from the pharmacy [facility]. 02/13/2007 8:38 PM CDT us Bhanu Gay MD HEMATOLOGY ORDERABLES Edited Performing Organization Address [facility] de Phone Number INTERFACE [...] MD HEMATOLOGY ORDERABLES Edited Performing Organization Address City/[facility] Co de Phone Number INTERFACE SYSTEM Refer to clinic/hospital department * (ABNORMAL) ETHANOL (02/13/2007 8:38 PM CDT) ETHANOL 39(H) <=10 mg/dL INTERFACE SYSTEM ETHANOL % 0.039(H) <=0.010 % INTERFACE SYSTEM Comment: Beginning August 31, 2006, the Blood Alcohol from [facility] will be reported in % as well as mg/dl. 02/13/2007 8:38 PM CDT Bhanu Gay MD CHEMISTRY ORDERABLES Edited Performing Organization Address City/[facility] Co de Phone Number INTERFACE [...] R/O COVID-19 08/19/2020 08/19/2020 08/20/2020 1:44 PM MILK AND CREAM GRADER documented as of this encounter Care Teams Chute Puller Relationship Specialty Start Date End Date Jonathan Pham MD [address] [phone] PCP - General Family Practice 03/01/18 documented as of this encounter
--- OUTSIDE RECORDS SUMMARY | 2025-04-19 04:34 | XMS_ITS | Encounter Summary ---
Author Organization [facility] Address [address] 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
--- OUTSIDE RECORDS SUMMARY | 2025-04-19 04:34 | XMS_ITS | Encounter Summary ---
Author Organization [facility] Address [address] [place] [address] Care Team Providers Care Manager Video Games Name Role Phone Jonathan Pham MD Primary Care Provider [phone] [phone] Encounter Details Date Type Department Care Team (Late st Contact Info) Description 03/31/2007 Inpatient Historical HIS IN BED Awilda Ulloa MD [address] [address] Other Postoperative Infection (Primary Dx) Social History Tobacco Use Types Packs/Day Years Used Date Smoking Tobacco: Never Assessed Sex and Gender Information Value Date Recorded Sex Assigned at Not on file Legal 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 04/05/2007 6:3 6 AM CDT Awilda Ulloa MD HEMATOLOGY ORDERABLES [...] MD HEMATOLOGY ORDERABLES Edited Performing Organization Address City/[facility] de Phone Number INTERFACE SYSTEM Refer to clinic/hospital department * VANCOMYCIN LEVEL PEAK (04/03/2007 9:33 PM CDT) Pathologist [facility] VANCOMYCIN, PEAK 28.6 25.0 - 40.0 mcg/mL INTERFACE SYSTEM 04/03/2007 9:33 PM CDT Awilda Ulloa MD CHEMISTRY ORDERABLES Edited Performing Organization Address [facility] de Phone Number INTERFACE SYSTEM Refer to clinic/hospital department * VANCOMYCIN LEVEL TROUGH (04/03/2007 7:25 PM CDT) Pathologist [facility] VANCOMYCIN, TROUGH 10.3 5.0 - 15.0 mcg/mL INTERFACE SYSTEM 04/03/2007 7:25 PM CDT Awilda Ulloa MD CHEMISTRY ORDERABLES Edited Performing Organization Address City/[facility] de Phone Number INTERFACE SYSTEM Refer to clinic/hospital department * (ABNORMAL) CBC WITH DIFFERENTIAL (04/03/2007 6:58 AM CDT) Pathologist [facility] WBC 6.8 4.5 - 11.0 K/ul INTERFACE [...] MD HEMATOLOGY ORDERABLES Edited Performing Organization Address City/[facility] de Phone Number INTERFACE SYSTEM Refer to [...] available from the pharmacy Michael Chaudhry D. 04/03/2007 6:22 AM CDT us Awilda [...] MD CHEMISTRY ORDERABLES Edited Performing Organization Address [facility] Phone Number INTERFACE SYSTEM Refer to clinic/hospital department * (ABNORMAL) BASIC METABOLIC PANEL (04/02/2007 6:47 AM CDT) Pathologist [facility] GLUCOSE 96 70 - 110 mg/dL INTERFACE [...] mOsm/Kg INTERFACE SYSTEM 04/02/2007 6:47 AM CDT us Awilda Ulloa MD CHEMISTRY ORDERABLES Edited Performing Organization Address [facility] Phone Number INTERFACE SYSTEM Refer to [...] MD HEMATOLOGY ORDERABLES Edited Performing Organization Address City/[facility] de Phone Number INTERFACE SYSTEM Refer to [...] available from the pharmacy Michael Chaudhry. 04/01/2007 3:54 PM CDT Awilda Ulloa MD HEMATOLOGY ORDERABLES Edited Performing Organization Address City/[facility] de Phone Number INTERFACE SYSTEM Refer to [...] MD HEMATOLOGY ORDERABLES Edited Performing Organization Address City/[facility] de Phone Number INTERFACE SYSTEM Refer to [...] MD HEMATOLOGY ORDERABLES Edited Performing Organization Address City/[facility] de Phone Number INTERFACE SYSTEM Refer to [...] R/O COVID-19 08/19/2020 08/19/2020 08/20/2020 1:44 PM ENVIRONMENTAL DEPARTMENT MANAGER documented as of this encounter Care Teams Manager Video Games Relationship Specialty Start Date End Date Jonathan Pham MD [address] [phone] PCP - General Family Practice 03/01/18 documented as of this encounter
--- OUTSIDE RECORDS SUMMARY | 2025-04-19 04:34 | XMS_ITS | Encounter Summary ---
Author Organization [facility] Address [address] [place] [address] Care Team Providers Care Solder Making Laborer Name Role Phone Jonathan Pham MD Primary Care Provider [phone] Encounter Details Date Type Department Care Team (Late st Contact Info) Description 07/20/2007 Outpatient Historical [facility] 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
--- OUTSIDE RECORDS SUMMARY | 2025-04-19 04:34 | XMS_ITS | Encounter Summary ---
Author Organization [facility] Address [address] [place] [address] Care Team Providers Care Manager Material Name Role Phone Jonathan Pham MD Primary Care Provider [phone] [phone] Encounter Details Date Type Department Care Team (Late st Contact Info) Description 06/25/2007 Outpatient Historical [facility] [address] [place] [address] Noelle Wise PA [address] [place] [address] Social History Tobacco Use Types Packs/Day Years Used Date Smoking Tobacco: Never Assessed Sex and Gender Information Value Date Recorded Sex Assigned at Not on file Legal 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 Male 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
--- OUTSIDE RECORDS SUMMARY | 2025-04-19 04:34 | XMS_ITS | Encounter Summary ---
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 Gender Identity Not on file Sexual [...] INTERF MONA SYSTEM Comment: Test Performed By [id number] Pulse OX: 90 Hemoglobin calculated from Hematocrit [...] TESTING COM Edite d Performing Organization Address City/State/[facility] Co de [...] MD HEMATOLOGY ORDERABLES Edited Performing Organization Address [facility] de Phone Number [...] Goal INR 3.0; range 2.5 - 3.5 POST-VA Goal INR 2.5; range 2.0 - 3.0 [...] MD CHEMISTRY ORDERABLES Edited Performing Organization Address [facility] Phone Number INTERFACE SYSTEM Refer [...] MD CHEMISTRY ORDERABLES Edited Performing Organization Address [facility] Phone Number INTERFACE SYSTEM Refer to clinic/hospital department * CREATININE (03/15/2007 2:57 PM CDT) Pathologist [facility] CREATININE 0.8 0.7 - 1.5 mg/dL INTERFACE SYSTEM 03/15/2007 2:57 PM CDT us Marcel Madrid MD CHEMISTRY ORDERABLES Edited Performing Organization Address [facility] Phone Number INTERFACE SYSTEM Refer to clinic/hospital department * (ABNORMAL) URINALYSIS MICROSCOPY ONLY (03/13/2007 6:15 PM CDT) Pathologist [facility] MICRO COMMENT INTERF MONA SYSTEM Comment: wbcs in clumps WBC URINE 16-25(A) 0 - 2 INTERFACE SYSTEM RBC UA None Seen 0 - 2 INTERFACE SYSTEM HYALINE CAST None Seen 0 - 2 INTERFA CE SYSTEM BACTERIA UA Many(A) None Seen INTERFAC E SYSTEM 03/13/2007 6:15 PM CDT Marcel Madrid MD URINE ORDERABLES Edited Performing Organization Address [facility] Phone Number INTERFACE SYSTEM Refer [...] MD URINE ORDERABLES Edited Performing Organization Address [facility] INTERFACE SYSTEM Refer to clinic/hospital department * [...] MD HEMATOLOGY ORDERABLES Edited Performing Organization Address City/[facility] de Phone Number INTERFACE SYSTEM Refer to clinic/hospital department * (ABNORMAL) ALBUMIN LEVEL (02/26/2007 6:10 AM CDT) Pathologist [facility] ALBUMIN 3.3(L) 3.5 - 5.0 g/dL INTERFACE SYSTEM 02/26/2007 6:10 AM CDT Marcel Madrid MD CHEMISTRY ORDERABLES Edited Performing Organization Address City/[facility] Co de [...] MD CHEMISTRY ORDERABLES Edited Performing Organization Address [facility] Phone Number INTERFACE SYSTEM Refer to clinic/hospital department * (ABNORMAL) POC GLUCOSE (02/22/2007 6:51 AM CDT) GLUCOSE POC 114(H) 60 - 100 mg/dL INTERFACE SYSTEM COMMENT POC Follow Protocol INTERFACE SYSTEM 02/22/2007 6:51 AM CDT us Marcel Madrid MD POINT OF CARE TESTING Edited Performing Organization Address [facility] Phone Number INTERFACE SYSTEM Refer to clinic/hospital department * (ABNORMAL) POC GLUCOSE (02/21/2007 5:16 PM CDT) GLUCOSE POC 113(H) 60 - 100 mg/dL INTERFACE SYSTEM COMMENT POC Follow Protocol INTERFACE SYSTEM 02/21/2007 5:16 PM CDT us Marcel Madrid MD POINT OF CARE TESTING Edited Performing Organization Address [facility] Phone Number INTERFACE SYSTEM Refer to clinic/hospital department * (ABNORMAL) POC GLUCOSE (02/21/2007 6:44 AM CDT) GLUCOSE POC 109(H) 60 - 100 mg/dL INTERFACE SYSTEM COMMENT POC Follow Protocol INTERFACE SYSTEM 02/21/2007 6:44 AM CDT us Marcel Madrid MD POINT OF CARE TESTING Edited Performing Organization Address [facility] de Phone Number INTERFACE SYSTEM Refer to clinic/hospital department * (ABNORMAL) POC GLUCOSE (02/20/2007 9:20 PM CDT) GLUCOSE POC 149(H) 60 - 100 mg/dL INTERFACE SYSTEM 02/20/2007 9:20 PM CDT us Marcel Madrid MD POINT OF CARE TESTING Edited Performing Organization Address [facility] Phone Number INTERFACE SYSTEM Refer to clinic/hospital department * (ABNORMAL) POC GLUCOSE (02/20/2007 4:32 PM CDT) GLUCOSE POC 163(H) 60 - 100 mg/dL INTERFACE SYSTEM 02/20/2007 4:32 PM CDT us Marcel Madrid MD POINT OF CARE TESTING Edited Performing Organization Address [facility] Phone Number INTERFACE SYSTEM Refer to [...] MD URINE ORDERABLES Edited Performing Organization Address [facility] de Phone Number [...] MD URINE ORDERABLES Edited Performing Organization Address City/[facility] Co de Phone Number INTERFACE SYSTEM Refer to clinic/hospital department * (ABNORMAL) POC GLUCOSE (02/20/2007 11:42 AM CDT) GLUCOSE POC 132(H) 60 - 100 mg/dL INTERFACE SYSTEM COMMENT POC Follow Protocol INTERFACE SYSTEM 02/20/2007 11:4 2 AM CDT Marcel Madrid MD POINT OF CARE TESTING Edited Performing Organization Address [facility] de Phone Number INTERFACE SYSTEM Refer to clinic/hospital department * (ABNORMAL) POC GLUCOSE (02/20/2007 7:05 AM CDT) GLUCOSE POC 113(H) 60 - 100 mg/dL INTERFACE SYSTEM 02/20/2007 7:05 AM CDT us Marcel Madrid MD POINT OF CARE TESTING Edited Performing Organization Address [facility] de Phone Number [...] MD HEMATOLOGY ORDERABLES Edited Performing Organization Address [facility] Phone Number INTERFACE SYSTEM Refer to clinic/hospital department * (ABNORMAL) POC GLUCOSE (02/19/2007 9:04 PM CDT) GLUCOSE POC 159(H) 60 - 100 mg/dL INTERFACE SYSTEM 02/19/2007 9:04 PM CDT us Marcel Madrid MD POINT OF CARE TESTING Edited Performing Organization Address [facility] Phone Number INTERFACE SYSTEM Refer to clinic/hospital department * (ABNORMAL) POC GLUCOSE (02/19/2007 6:44 PM CDT) GLUCOSE POC 195(H) 60 - 100 mg/dL INTERFACE SYSTEM 02/19/2007 6:44 PM CDT us Marcel Madrid MD POINT OF CARE TESTING Edited Performing Organization Address [facility] Phone Number INTERFACE SYSTEM Refer [...] Jagdeep Virgen M.D. 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
--- OUTSIDE RECORDS SUMMARY | 2025-04-19 04:34 | XMS_ITS | Encounter Summary ---
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 Gender Identity Not on file Sexual Orientation Not on file documented as of this encounter Plan of Treatment Not on file documented as of this encounter Visit Diagnoses Not on filedocumented in this encounter Additional Health Concerns Infection Onset Date Last Indicated Resolved Time R/O COVID-19 08/19/2020 08/19/2020 08/20/2020 1:44 PM MARKET 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
--- OUTSIDE RECORDS SUMMARY | 2025-04-19 04:34 | XMS_ITS | Encounter Summary ---
Author Organization [facility] Address [address] [facility] 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 Gender Identity Not on file Sexual Orientation Not on file documented as of this encounter Plan of Treatment Not on file documented as of this encounter Procedures Procedure Name Priority Date/Time Associated Diagnosis Comments C-REACTIVE PROTEIN Routine 10/06/2007 12 :27 PM CDT documented in this encounter Results * (ABNORMAL) C-REACTIVE PROTEIN (10/06/2007 12:27 PM CDT) CRP 2.71(H) 0.00 - 1.00 mg/dL [facility] Blood specimen (specimen) 10/06/2007 12:27 PM CDT 10/06/2007 9:58 PM CDT Donnell Morales MD CHEMISTRY ORDERABLES Final Result [facility] [address] [place] [address] documented in this encounter Visit Diagnoses Not on filedocumented in this encounter Additional Health Concerns Infection Onset Date Last Indicated Resolved Time R/O COVID-19 08/19/2020 08/19/2020 08/20/2020 1:44 PM FINISHING DEPARTMENT SUPERVISOR documented as of this encounter Care Teams Apartment Maintenance Manager Relationship Specialty Start Date End Date Jonathan Pham MD [address] [facility] [address] [place] [phone] PCP - General Family Practice 03/01/18 documented as of this encounter
[2025-04-19 04:47] LABS: Hematocrit 48.1 % (37-53); Hemoglobin 13.70 g/dL (11.27-16.99); Mean Corpuscular HGB Conc 28.5 g/dL (30-55); Mean Corpuscular Hemoglobin 23.6 pg (27-33); Mean Corpuscular Volume 82.8 fl (82-101); Nucleated Red Blood Cells % 0 %; Platelet Count 262 10^3/cmm (157-399); Red Blood Count 5.81 10^6/uL (3.85-5.65); White Blood Count 7.32 10^3/uL (3.29-11.43)
[2025-04-19 04:52] LABS: ABG PCO2 49.4 mmHg (35-45); ABG PH Result 7.28 (7.35-7.45); Alveolar-Arterial Oxygen Gradi 0.6 mmHg (5-10); Arterial Blood Gas Hematocrit 40.7 % (42-52); Blood Gas Allen Test Pos; Blood Gas LPM 6.0 %; Blood Gas Sample Site Radial, right; Blood Gas Sample Type Arterial; Carboxyhemoglobin 1.1 %THgb (0.4-20.1); Glucose Level-ABG 146.0 mg/dL (70-115); HCO3 ABG 23.0 mmol/L (22-26); Ionized Calcium Level - ABG 1.1 mmol/L (1.1-1.4); Methemoglobin 1.0 % (0.4-1.5); Oxygen Saturation ABG 93.7; PO2 ABG 85.0 mmHg (80.0-100.0); Potassium Level - ABG 4.4 mmol/L (3.5-5.0); Sodium Level - ABG 144.0 mmol/L (131-143)
[2025-04-19 05:11] LABS: Alanine Aminotransferase 8 U/L (0-41); Albumin Level 3.9 g/dL (3.5-5.2); Alkaline Phosphatase 74 U/L (40-130); Anion Gap 24.3 (5-19); Aspartate Amino Transferase 11 U/L (0-40); Blood Urea Nitrogen 49 mg/dL (8-23); Calcium 9.2 mg/dL (8.5-10.5); Carbon Dioxide 23 mmol/L (22-29); Chloride 99 mmol/L (98-107); Creatinine Clr Calc Pharmacy 17.7903; Globulin 4.2 g/dL (1.3-4.6); Glucose 166 mg/dL (65-115); Magnesium 2.1 mg/dL (1.7-2.3); Osmolality Calculated 309 mOsm/kg (285-295); Potassium 5.3 mmol/L (3.5-5.1); Sodium 141 mmol/L (136-145); Total Protein 8.1 g/dL (6.6-8.7)
[2025-04-19 05:13] LABS: Lactic Sepsis W/Reflex 2.8 mmol/L (0.5-2.2)
[2025-04-19 05:16] LABS: Procalcitonin 0.63 ng/mL (0-0.5)
[2025-04-19 05:19] LABS: Alcohol Level < 10 mg/dL (0-10)
--- NOTE | 2025-04-19 05:28 | ED_ITS ---
HPI - Altered Mental Status 2 General: Chief Complaint: Altered Mental Status Stated Complaint: AMS Time Seen by Provider: 04/19/25 04:19 History of Present Illness: 64-year-old male presents with acute alt ered mental status. Per , episodes of in and out of consciousness have been occurring for approximately 1 hour prior to arrival. During evaluation, patient intermittently flails arms and screams, unable to form cohesive sentences and not answering questions. Noted to have bilateral lower extremity amputations and a suprapubic catheter in place. No additional history provided. Related Data Home Medications ?Medication ?Instructions ?Recorded ?Confirmed gabapentin 800 mg tablet 800 mg PO TID 01/10/2501/10 glimepiride 1 mg tablet 1 mg PO QAM 01/10/25 5 lisinopril 5 mg tablet 5 mg PO DAILY 01/10/2501/10 metformin 1,000 mg tablet 1,000 mg PO BID 01/10/25 Previous Rx's ?Medication ?Instructions ?Recorded baclofen 20 mg tablet 10 mg (1/2 x 20 mg) PO TID # 1 tab 03/07/23 metronidazole 500 mg tablet 500 mg PO Q8H #15 tabs sulfamethoxazole 800 1 tab PO BID #14 tabs mg-trimethoprim 160 mg tablet (Bactrim DS) Allergies Allergy/AdvReac Type Severity Reaction Status Date / Time Penicillins Allergy Unknown Unknown Verified 04/19/25 04:31 [facility] ED 2 PFS: Medical History (Updated 04/19/25 @ 05:28 by Jonathan Gan MD) Diabetes mellitus Urinary incontinence Osteomyelitis Right ureteral calculus Obstructive pyelonephritis Neurogenic bladder Paraplegia Surgical History History of back surgery H/O colostomy Family History Mother , at age 54 Cancer melanoma Father , at age 68 Cancer brain tumor Denies family history of Anesthesia complication Bleeding disorder Social History Alcohol intake: current Alcohol intake frequency: holidays/special occasions only Substance/Drug Use: never Additional social history: Patient wants full code as discussed today with him and his Faiza on 01/09/2025 by Chuy Gallo MD Adopted: No Caregiver/support person: No Lives independently: No Household members: spouse Marital status: Current occupational status: disabled 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 Physical Exam 2 Const: COMMON NORMALS: no acute distress OTHER: Somnolent HENMT: COMMON NORMALS: normocephalic and atraumatic HEAD & SCALP: n ormocephalic and atraumatic Eye: COMMON NORMALS: Equal, round and reactive pupils present, EOMs intact bilaterally and no scleral icterus PUPIL: Yes Equal, round and reactive pupils present Resp: COMMON NORMALS: normal respiratory effort and No retractions Cardio: COMMON NORMALS: regular rhythm and No murmurs present (Cardio) R HYTHM: regular rhythm GI: COMMON NORMALS: Normal to inspection, nondistended, normoactive bowel sounds present, Soft to palpation and non-tender PALPATION: Yes Soft to palpation Neuro: OTHER: Somnolent but awakens to painful stimulus and answers yes and no questions appropriately. Appears confused. No lateralizing deficits of strength or sensation. Skin: OTHER: Chronic appearing mild ulcerations of the upper extremities and abdomen Urinary Catheter Management: Suprapubic: Cath Placed During This Visit: yes Urinary Catheter Date of Insertion: 04/19/25 Urinary Catheter Time of Insertion: 04:38 Course 2 Vital Signs: Vital signs: Vital Signs Pulse Rate 74 04/19/25 04:18 Respiratory Rate 18 04/19/25 04:18 Blood Pressure 59/38 04/19/25 04:18 Pulse Oximetry 91 04/19/25 04:18 Oxygen Delivery Me thod Room Air 04/19/25 04:18 MDM - Altered Mental Status Medical Decision Making 64-year-old male with acute altered mental status, reported by as intermittent in and out of consciousness for approximately 1 hour. Nonverbal at times, screaming and flailing. Bilateral lower extremity amputations; suprapubic catheter in place. Laboratory evaluation reveals GUY with creatinine of 3.7 up from baseline of 0.6. After receiving IV fluids, initial hypotension has improved significantly. Heart rate, respiratory rate, and oxygen saturation remained stable. At time of disposition, urinalysis has not resulted. Lactic acid is mildly elevated. He was given 2 L of normal saline in the emergency department as well as ceftriaxone prophylactically as urine and suprapubic catheter drainage bag appeared visually infected and on arrival he was so hypotensive that the there was strong suspicion for sepsis. Blood cultures are pending. CT head will be performed as well. Chest x-ray does not show anything acute. He will be admitted to the hospitalist service for further observation and care and correction of GUY. EKG: Time?0428?normal sinus rhythm, rate of 68, no ST segment elevation or depression, no T wave inversions, QTc = 421. Lab Data 04/19/25 04:30 04/19/25 04:30 Laboratory Results WBC 7.32 10^3/uL (3.29-11.43) 04/19/25 04:30 RBC 5.81 10^6/uL (3.85-5.65) H 04/19/25 04:30 Hgb 13.70 g/dL (11.27-16.99) 04/19/25 04:30 Hct 48.1 % (37-53) 04/19/25 04:30 MCV 82.8 fl (82-101) 04/19/25 04:30 MCH 23.6 pg (27-33) L 04/19/25 04:30 MCHC 28.5 g/dL (30-55) L 04/19/25 04:30 RDW 19.1 % (12.1-15.1) H 04/19/25 04:30 Plt Count 262 10^3/cmm (157-399) 04/19/25 04:30 MPV 11.0 fL (7.4-10.4) H 04/19/25 04:30 Neut % (Auto) 73.2 % 04/19/25 04:30 Lymph % (Auto) 17.9 % 04/19/25 04:30 [place] % (Auto) 5.7 % 04/19/25 04:30 Eos % (Auto) 1.9 % 04/19/25 04:30 Baso % (Auto) 0.5 % 04/19/25 04:30 Neut # (Auto) 5.35 10^3/uL (1.8-7.7) 04/19/25 04:30 Lymph # (Auto) 1.3 10^3/uL (0.8-4.8) 04/19/25 04:30 [place] # (Auto) 0.4 10^3/uL (0.2-0.9) 04/19/25 04:30 Eos # (Auto) 0.1 10^3/uL (0.0-0.8) 04/19/25 04:30 Baso # (Auto) 0.0 10^3/uL (0.0-0.1) 04/19/25 04:30 Nucleated RBC % (auto) 0 % 04/19/25 04:30 Nucleated RBCs # 0.0 /100WBC 04/19/25 04:30 Specimen Type Arterial 04/19/25 04:41 Sample Site Radial, right 04/19/25 04:41 ABG pH 7.28 (7.35-7.45) L 04/19/25 04:41 ABG pCO2 49.4 mmHg (35-45) H 04/19/25 04:41 ABG pO2 85.0 mmHg (80.0-100.0) 04/19/25 04:41 ABG HCO3 23.0 mmol/L (22-26) 04/19/25 04:41 ABG O2 Saturation 93.7 04/19/25 04:41 ABG Base Excess -4.1 mmol/L (-2.0-2.0) L 04/19/25 04:41 Jose Test Pos 04/19/25 04:41 A-a O2 Gradient 0.6 mmHg (5-10) L 04/19/25 04:41 Hematocrit 40.7 % (42-52) L 04/19/25 04:41 Hgb O2 Saturation 91.8 % (95-100) L 04/19/25 04:41 Carboxyhemoglobin 1.1 %THgb (0.4-20.1) 04/19/25 04:41 Methemoglobin 1.0 % (0.4-1.5) 04/19/25 04:41 Total Hemoglobin 13.3 g/dL (14-18) L 04/19/25 04:41 Sodium 144.0 mmol/L (131-143) H 04/19/25 04:41 Potassium 4.4 mmol/L (3.5-5.0) 04/19/25 04:41 Glucose 146.0 mg/dL (70-115) H 04/19/25 04:41 Ionized Calcium 1.1 mmol/L (1.1-1.4) 04/19/25 04:41 O2 Delivery Device Nc 04/19/25 04:41 O2 Liters/Min 6.0 % 04/19/25 04:41 Deputy Treasurer ID [email or web address] 04/19/25 04:41 Sodium 141 mmol/L (136-145) 04/19/25 04:30 Potassium 5.3 mmol/L (3.5-5.1) H 04/19/25 04:30 Chloride 99 mmol/L (98-107) 04/19/25 04:30 Carbon Dioxide 23 mmol/L (22-29) 04/19/25 04:30 Anion Gap 24.3 (5-19) H 04/19/25 04:30 BUN 49 mg/dL (8-23) H 04/19/25 04:30 Creatinine 3.7 mg/dL (0.7-1.2) H 04/19/25 04:30 GFR Calculation 16.6 mL/min (90-130) L 04/19/25 04:30 Glucose 166 mg/dL (65-115) H 04/19/25 04:30 Calculated Osmolality 309 mOsm/kg (285-295) H 04/19/25 04:30 Lactic Acid 2.8 mmol/L (0.5-2.2) H 04/19/25 04:30 Calcium 9.2 mg/dL (8.5-10.5) 04/19/25 04:30 Phosphorus 6.4 mg/dL (2.5-4.5) H 04/19/25 04:30 Magnesium 2.1 mg/dL (1.7-2.3) 04/19/25 04:30 Total Bilirubin 0.3 mg/dL (0.15-1.2) 04/19/25 04:30 AST 11 U/L (0-40) 04/19/25 04:30 ALT 8 U/L (0-41) 04/19/25 04:30 Alkaline Phosphatase 74 U/L (40-130) 04/19/25 04:30 Total Protein 8.1 g/dL (6.6-8.7) 04/19/25 04:30 Albumin 3.9 g/dL (3.5-5.2) 04/19/25 04:30 Globulin 4.2 g/dL (1.3-4.6) 04/19/25 04:30 Procalcitonin 0.63 ng/mL (0-0.5) H 04/19/25 04:30 Ethyl Alcohol < 10 mg/dL (0-10) 04/19/25 04:30 All radiology interpretation(s) finalized by discharge Discharge Plan Discharge Patient Disposition: Admitted As Inpatient Clinical Impression: GUY (acute kidney injury), Acute metabolic encephalopathy Condition: Stable Coding Level of Care Code ED Marketing Automation Analyst for Radha Roque
--- NOTE | 2025-04-19 05:32 | PM.HP ---
Providers/Chief Complaint Admitting Physician: Caterina Barone Primary Care Provider: Jonathan Pham Chief Complaint: AMS History of Present Illness As per the previous chart review since the patient is a poor historian and prefers to sleep, when given painful stimuli open the (what happened/what happened/what happened I do not know I do not know and goes back to sleep. Israel Mullen is a 64 year old male with past medical history of paraplegia since 2006, bladder, diabetes mellitus, recurrent UTI, and chronic pressure ulcers of bilateral gluteal region came to the hospital with the complaining of altered mentation. Patient had suprapubic catheter and was having cloudy urine however there was no leukocytosis. He was found to have acute kidney injury and mild hyperkalemia likely secondary to dehydration. Dehydration could also be the reason of his drowsiness/altered mentation Review of Systems General: Reports: 10 or more systems reviewed and unremarkable except in HPI and below Medications/Allergies Home Medications ?Medication ?Instructions ?Recorded ?Confirmed ?Last Taken ?Type baclofen 20 mg tablet 10 mg (1/2 x 20 mg) PO TID #1 tab 03/07/23 01/10/25 01/09/25 Rx gabapentin 800 mg tablet 800 mg PO TID 01/10/25 01/10/25 01/09/25 History glimepiride 1 mg tablet 1 mg PO QAM 01/10/25 01/10/25 01/09/25 History lisinopril 5 mg tablet 5 mg PO DAILY 01/10/25 01/10/25 01/09/25 History metformin 1,000 mg tablet 1,000 mg PO BID 01/10/25 01/10/25 01/09/25 History metronidazole 500 mg tablet 500 mg PO Q8H #15 tabs 01/30/25 01/30/25 Unknown Rx sulfamethoxazole 800 1 tab PO BID #14 tabs 02/08/25 02/08/25 Unknown Rx mg-trimethoprim 160 mg tablet (Bactrim DS) Allergies Allergy/AdvReac Type Severity Reaction Status Date / Time Penicillins Allergy Unknown Unknown Verified 04/19/25 04:31 PFSH Acute PFSH: Medical History (Updated 04/19/25 @ 06:26 by Caterina Barone MD) Diabetes mellitus Urinary incontinence Osteomyelitis Right ureteral calculus Obstructive pyelonephritis Neurogenic bladder Paraplegia Surgical History History of back surgery H/O colostomy Family History Mother , at age 54 Cancer melanoma Father , at age 68 Cancer brain tumor Denies family history of Anesthesia complication Bleeding disorder Social History Alcohol intake: current Alcohol intake frequency: holidays/special occasions only Substance/Drug Use: never Additional social history: Patient wants full code as discussed today with him and his Faiza on 01/09/2025 by Chuy Gallo MD Adopted: No Caregiver/support person: No Lives independently: No Household members: spouse Marital status: Current occupational status: disabled 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 Repeating only these words on and off HEENT: Normocephalic, atraumatic, grossly unremarkable exam Cardio: normal rate rhythm, normal S1-S2 without any murmurs, rubs, or gallops and JVD normal Respiratory: normal vascular breathing on auscultation without any wheezes, stridor, rhonchi GI: Abdomen soft, nontender, nondistended, normoactive bowel sounds present all 4 quadrants, with suprapubic catheter in place and that was changed with clear urine and seems dark-colored possible secondary to dehydration Neuro: Unable to assess neurological function however gross motor examination is unremarkable. The patient exam is limited because of his drowsy/uncooperative behavior Behavior: Unable to engage or interact for proper exam and history Urinary Catheter Management: Suprapubic: Cath Placed During This Visit: yes Urinary Catheter Date of Insertion: 04/19/25 Urinary Catheter Time of Insertion: 04:38 Data 04/19/25 04:30 04/19/25 04:30 Micro: Microbiology 04/19/25 05:05 Blood Culture - Preliminary Blood SPECIMEN COLLECTED 04/19/25 04:50 Blood Culture - Preliminary Blood SPECIMEN COLLECTED A&P Assessment and plan 1. Dehydration: Patient seems dehydrated on clinical examination UTOX Ringer lactate at 125 mL/h and later on to assess accordingly for clinical improvement Monitor renal parameters and electrolytes 2. GUY (acute kidney injury): CPK mildly high UTOX to follow Ringer lactate to continue at 125 mL/h Adequate intake output monitoring Monitor renal functions Avoid any nephrotoxic drugs 3. Hyperkalemia: Since the patient is mild sleepy Lokelma could not be given Dextrose water 5% 500 mL bolus stat Continue adequate hydration And follow electrolytes specially potassium 4. Acute metabolic encephalopathy: Patient is alert could be element of dehydration versus intoxication Patient is alert with mild skin pinching and interacts with saying what happened what happened I do not know. Patient is a poor historian therefore adequate history cannot be obtained No leukocytosis or infectious source to be obtained yet Follow UA and urine culture Blood cultures Repeat lactate after adequate hydration 5. Paraplegia: OT PT referral 6. Diabetes mellitus: Insulin sliding scale and monitor blood glucose 7. Neurogenic bladder: Suprapubic catheter care Follow UA and urine cultures PDMP PDMP Reviewed: Not Reviewed Attestations Medical Necessity Statement*: Patient will stay less than 1 midnight for GUY secondary to dehydration likely Time Spent in Patient Care: 16 - 35 minutes (>than 50% of time spent in counselling and/or direct pt care on unit). Other Attestations: Patient condition has been discussed at length with the patient/family, I have independently reviewed the chart labs imaging/diagnostics/EKG. the goals of care and code status with the patient/family/NOK/legal sales representative printing, and documented accordingly. The patient/family has been informed about the current condition and further plan of care. Agreed with the plan of care and understood without any language barrier. Every effort was made to ensure accuracy of earth sciences professor. Any obvious errors or omissions should be clarified with the author of the document. Coding Level of Care Code Acute Code for g Fwd Diagnoses Dehydration E86.0 GUY (acute kidney injury) N17.9 Hyperkalemia E87.5 Acute metabolic encephalopathy G93.41 Paraplegia G82.20 Diabetes mellitus E11.9 Neurogenic bladder N31.9
[2025-04-19 05:58] LABS: Thyroid Stimulating Hormone 1.03 uIU/mL (0.27-4.20)
[2025-04-19] MEDS: cefTRIAXone 2,000 mg SDV 2000 MG IVP (06:01)
--- NOTE | 2025-04-19 06:29 | XRR_ITS ---
PROCEDURE INFORMATION: Exam: XR Chest Exam date and time: 04/19/2025 6:22 AM Age: 64 years old Clinical indication: Device placement; Ett placement (vent status); Additional info: Post intubation TECHNIQUE: Imaging protocol: Radiologic exam of the chest. Views: 1 view. COMPARISON: CR (CHEST, ) 04/19/2025 4:35 AM FINDINGS: Tubes, catheters and devices: The endotracheal tube terminates above the eduardo. The eduardo is not clearly visible. Lungs: Unremarkable. No consolidation. Pleural spaces: Unremarkable. No pleural effusion. No pneumothorax. Heart/Mediastinum: Unremarkable. No cardiomegaly. Bones/joints: Posterior upper thoracic fusion. XR/XR chest 1V portable [id number] IMPRESSION: Intubation..
[2025-04-19] MEDS: LORazepam 1 MG/0.5 ML injection 2 MG (06:30)
[2025-04-19 06:32] LABS: Reflex Lactate Order REFLEX LACTIC ORDERD
[2025-04-19] MEDS: midazolam hcl 100 MG/100 ML BAG IV (06:36)
[2025-04-19] MEDS: fentaNYL 1,000 MCG/100 ML BAG 2.5 MCG IV (06:36)
[2025-04-19] MEDS: calcium gluconate 0.1 gm/mL 10% SDV 10mL 1 GM IVP (06:43)
[2025-04-19] MEDS: amiodarone 150 MG/100 ML PREMIX 400 MG IV (06:46)
[2025-04-19 06:53] LABS: ABG PCO2 44.2 mmHg (35-45); Alveolar-Arterial Oxygen Gradi 65.8 mmHg (5-10); Arterial Blood Gas Hematocrit 52.0 % (42-52); Blood Gas Allen Test Pos; Blood Gas Operator Identificat JDB; Blood Gas Sample Site Radial, right; Blood Gas Sample Type Arterial; Blood Gas Tidal Volume 0.45; Carboxyhemoglobin 0.6 %THgb (0.4-20.1); Glucose Level-ABG 209.0 mg/dL (70-115); HCO3 ABG 16.0 mmol/L (22-26); Ionized Calcium Level - ABG 1.2 mmol/L (1.1-1.4); Methemoglobin 1.1 % (0.4-1.5); Oxygen Saturation ABG 96.7; PEEP 8.0 cmH20; PO2 ABG 153.0 mmHg (80.0-100.0); PO2 FiO2 Ratio Arterial Blood 153; Potassium Level - ABG 4.7 mmol/L (3.5-5.0); Sodium Level - ABG 143.0 mmol/L (131-143)
[2025-04-19 06:55] LABS: ABG PH Result 7.17 (7.35-7.45)
--- NOTE | 2025-04-19 06:55 | W.ED.AMS ---
HPI - Altered Mental Status General: Chief Complaint: Altered Mental Status Stated Complaint: AMS Time Seen by Provider: 04/19/25 04:19 History of Present Illness: Patient in the ER when I began shift. He had been seen by Dr. Gan and was admitted to the hospitalist and waiting for a bed assignment. He was admitted for acute kidney injury with metabolic encephalopathy he was hypotensive when he first arrived his blood pressure had improved to 106 systolic. Was contacted by the nurse he had significantly decompensated. An addendum was attached to Dr. Gan's note, within this note was initiated. Dr. Gan's note was reviewed as well as the labs that he had ordered earlier. Related Data Home Medications ?Medication ?Instructions ?Recorded ?Confirmed gabapentin 800 mg tablet 800 mg PO TID 01/10/25 04/19/25 glimepiride 1 mg tablet 1 mg PO QAM 01/10/25 04/19/25 lisinopril 5 mg tablet 5 mg PO DAILY 01/10/25 04/19/25 metformin 1,000 mg tablet 1,000 mg PO BID 01/10/25 04/19/25 baclofen 20 mg tablet 40 mg PO TID 04/19/25 04/19/25 Allergies Allergy/AdvReac Type Severity Reaction Status Date / Time Penicillins Allergy Unknown Unknown Verified 04/19/25 04:31 PFSH ED PFSH: Medical History Diabetes mellitus Urinary incontinence Osteomyelitis Right ureteral calculus Obstructive pyelonephritis Neurogenic bladder Paraplegia Surgical History History of back surgery H/O colostomy Family History Mother , at age 54 Cancer melanoma Father , at age 68 Cancer brain tumor Denies family history of Anesthesia complication Bleeding disorder Social History Alcohol intake: current Alcohol intake frequency: holidays/special occasions only Substance/Drug Use: never Additional social history: Patient wants full code as discussed today with him and his Faiza on 01/09/2025 by Chuy Gallo MD Adopted: No Caregiver/support person: No Lives independently: No Household members: spouse Marital status: Current occupational status: disabled 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 Patient has impending respiratory arrest. Resp: OTHER: Impending respiratory arrest agonal breathing. With ventilation patient has significant basilar crackles. Cardio: OTHER: Tachycardic Urinary Catheter Management: Suprapubic: Cath Placed During This Visit: yes Urinary Catheter Date of Insertion: 04/19/25 Urinary Catheter Time of Insertion: 04:38 Procedures Central Line Placement Right IJ: Time Out Performed: Yes Patient Placed on Monitor/Pulse Ox: Yes MD Prep: mask, gown and gloves Central Line Prep: Chlorhexidine scrub Ultrasound Used for Placement: Yes Central Line Lumen Inserted: triple Post Procedure: sutured in place, good blood return, all ports aspirated, flushed, capped and sterile dressing applied Post Procedure X-Ray: tip of catheter in good position Patient Tolerated Procedure: well Complications: none Intubation sedative: none Laryngoscope: fiber optic video scope ET Tube Size: 8 ET Tube Uncuffed: No Tube Secured Depth (cm): 23 Tube Secured Location: teeth Tube Placement Confirmation: visualized tube passing through cords, equal breath sounds bilaterally and no breath sounds over epigastrium Patient Tolerated Procedure: well Intubation Complications: none Course Vital Signs: Vital signs: Vital Signs Temperature 99.4 F 04/19/25 16:19 Pulse Rate 76 04/19/25 16:19 Respiratory Rate 14 04/19/25 17:14 Blood Pressure 82/54 04/19/25 16:19 Pulse Oximetry 96 04/19/25 17:14 Oxygen Delivery Me thod Mechanical Ventil ation 04/19/25 16:19 Oxygen Flow Rate 3 04/19/25 04:44 Fraction of Inspir ed Oxygen 30 04/19/25 17:14 MDM - Altered Mental Status Medical Decision Making Patient was initially intubated he did not require any sedation for initial intubation. He was started on low-dose Versed and fentanyl he has not shown any signs of waking up. He is remained hypotensive central line is placed Levophed has been started. On repeat blood gases pH is 716. He is hyperoxygenated but this was drawn after he had been intubated. Central line was placed see procedure note. Levophed has been started and titrating up to achieve a MAP of greater than 65. He had been in atrial tachycardia he was loaded with amiodarone the drip was never started and his heart rate at the time of this dictation is down to 62. We are getting a repeat EKG. Chest x-ray done immediately after intubation is difficult to see the eduardo because of instrumentation and patient's positioning however tip of the ET tube is just below the clavicles he is ventilating effectively. Maintain position at this time. We have updated hospitalist service on the patient's decompensation and the measures taken to stabilize. Repeat chest x-ray after central line shows central line in good position ET tube is also in good position above the eduardo. Levophed titrated up to a MAP of 65 patient transferred to the ICU. Heart rate has stabilized he is now in a sinus bradycardia repeat EKG does not show any acute ST segment changes. Sodium bicarb 50 mill equivalents push and IV drip has been initiated as well. Patient was given IV fluid bolus by Dr. Gan. We are monitoring his fluid intake. I bolused another 500 mL of normal saline when the patient began to decompensate, and another 500 mL after the central line was placed. This gives a total bolus of 2000 mL which slightly exceeds the 30 mL/kg bolus. Checked with the hospitalist. Dr. Barone had initially accepted the patient from Dr. Gan. Dr. Ayala received patient on signout this morning. I discussed with her and updated her on the changes since Dr. David murphy had seen the patient and the interventions that we had done. Patient is transferring to the ICU at the time this dictation. I have asked respiratory therapy to decrease his FiO2 once they arrive there recommended 50%. Medical Records I reviewed the patient's medical records. Lab Data I reviewed the patient's lab results. 04/19/25 04:30 04/19/25 04:[address] 04/19/25 04:26 IMPRESSION: No acute intracranial abnormality. Chest X-Ray 04/19/25 09:40 IMPRESSION: Nasogastric tube position as above. Chest is stable compared to the previous examination of 7:38 a.m. 04/19/2025 Laboratory Results WBC 7.32 10^3/uL (3.29-11.43) 04/19/25 04:30 RBC 5.81 10^6/uL (3.85-5.65) H 04/19/25 04:30 Hgb 13.70 g/dL (11.27-16.99) 04/19/25 04:30 Hct 48.1 % (37-53) 04/19/25 04:30 MCV 82.8 fl (82-101) 04/19/25 04:30 MCH 23.6 pg (27-33) L 04/19/25 04:30 MCHC 28.5 g/dL (30-55) L 04/19/25 04:30 RDW 19.1 % (12.1-15.1) H 04/19/25 04:30 Plt Count 262 10^3/cmm (157-399) 04/19/25 04:30 MPV 11.0 fL (7.4-10.4) H 04/19/25 04:30 Neut % (Auto) 73.2 % 04/19/25 04:30 Lymph % (Auto) 17.9 % 04/19/25 04:30 Taylor % (Auto) 5.7 % 04/19/25 04:30 Eos % (Auto) 1.9 % 04/19/25 04:30 Baso % (Auto) 0.5 % 04/19/25 04:30 Neut # (Auto) 5.35 10^3/uL (1.8-7.7) 04/19/25 04:30 Lymph # (Auto) 1.3 10^3/uL (0.8-4.8) 04/19/25 04:30 Taylor # (Auto) 0.4 10^3/uL (0.2-0.9) 04/19/25 04:30 Eos # (Auto) 0.1 10^3/uL (0.0-0.8) 04/19/25 04:30 Baso # (Auto) 0.0 10^3/uL (0.0-0.1) 04/19/25 04:30 Nucleated RBC % (auto) 0 % 04/19/25 04:30 Nucleated RBCs # 0.0 /100WBC 04/19/25 04:30 Specimen Type Arterial 04/19/25 04:41 Sample Site Radial, right 04/19/25 04:41 ABG pH 7.28 (7.35-7.45) L 04/19/25 04:41 ABG pCO2 49.4 mmHg (35-45) H 04/19/25 04:41 ABG pO2 85.0 mmHg (80.0-100.0) 04/19/25 04:41 ABG HCO3 23.0 mmol/L (22-26) 04/19/25 04:41 ABG O2 Saturation 93.7 04/19/25 04:41 ABG Base Excess -4.1 mmol/L (-2.0-2.0) L 04/19/25 04:41 Jose Test Pos 04/19/25 04:41 A-a O2 Gradient 0.6 mmHg (5-10) L 04/19/25 04:41 Hematocrit 40.7 % (42-52) L 04/19/25 04:41 Hgb O2 Saturation 91.8 % (95-100) L 04/19/25 04:41 Carboxyhemoglobin 1.1 %THgb (0.4-20.1) 04/19/25 04:41 Methemoglobin 1.0 % (0.4-1.5) 04/19/25 04:41 Total Hemoglobin 13.3 g/dL (14-18) L 04/19/25 04:41 Sodium 144.0 mmol/L (131-143) H 04/19/25 04:41 Potassium 4.4 mmol/L (3.5-5.0) 04/19/25 04:41 Glucose 146.0 mg/dL (70-115) H 04/19/25 04:41 Ionized Calcium 1.1 mmol/L (1.1-1.4) 04/19/25 04:41 O2 Delivery Device Nc 04/19/25 04:41 O2 Liters/Min 6.0 % 04/19/25 04:41 Lead Software Engineer ID [email or web address] 04/19/25 04:41 Sodium 141 mmol/L (136-145) 04/19/25 04:30 Potassium 5.3 mmol/L (3.5-5.1) H 04/19/25 04:30 Chloride 99 mmol/L (98-107) 04/19/25 04:30 Carbon Dioxide 23 mmol/L (22-29) 04/19/25 04:30 Anion Gap 24.3 (5-19) H 04/19/25 04:30 BUN 49 mg/dL (8-23) H 04/19/25 04:30 Creatinine 3.7 mg/dL (0.7-1.2) H 04/19/25 04:30 GFR Calculation 16.6 mL/min (90-130) L 04/19/25 04:30 Glucose 166 mg/dL (65-115) H 04/19/25 04:30 Calculated Osmolality 309 mOsm/kg (285-295) H 04/19/25 04:30 Lactic Acid 2.8 mmol/L (0.5-2.2) H 04/19/25 04:30 Calcium 9.2 mg/dL (8.5-10.5) 04/19/25 04:30 Phosphorus 6.4 mg/dL (2.5-4.5) H 04/19/25 04:30 Magnesium 2.1 mg/dL (1.7-2.3) 04/19/25 04:30 Total Bilirubin 0.3 mg/dL (0.15-1.2) 04/19/25 04:30 AST 11 U/L (0-40) 04/19/25 04:30 ALT 8 U/L (0-41) 04/19/25 04:30 Alkaline Phosphatase 74 U/L (40-130) 04/19/25 04:30 Creatine Kinase 343 U/L (39-308) H* 04/19/25 04:30 Total Protein 8.1 g/dL (6.6-8.7) 04/19/25 04:30 Albumin 3.9 g/dL (3.5-5.2) 04/19/25 04:30 Globulin 4.2 g/dL (1.3-4.6) 04/19/25 04:30 Procalcitonin 0.63 ng/mL (0-0.5) H 04/19/25 04:30 TSH 1.03 uIU/mL (0.27-4.20) 04/19/25 04:30 Ethyl Alcohol < 10 mg/dL (0-10) 04/19/25 04:30 All radiology interpretation(s) finalized by discharge Critical Care Time Critical Care Time: Critical Care Time: Yes Total Critical Care Time: 45 Attestation: The high probability of a clinically significant, sudden or life threatening deterioration of the patient's cardiovascular respiratory renal system(s) required my full and direct attention, intervention and personal management. The critical care time is as shown. This time is in addition to time spent performing any reported procedures but includes the following: [x] Data and vital sign review and interpretation [x] Patient assessment, examination and intervention [x] Documentation [x] Medication orders and management Discharge Plan Discharge Patient Disposition: Admitted As Inpatient Admit Provider: Caterina Barone Clinical Impression: GUY (acute kidney injury), Acute metabolic encephalopathy, Paraplegia, Diabetes mellitus, Acute hypoxic respiratory failure Condition: Stable Coding Level of Care Code ED Psychology Tech for Radha Roque
--- OUTSIDE RECORDS SUMMARY | 2025-04-19 07:03 | XMS_ITS | Encounter Summary ---
Author Organization [facility] Address [address] 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
--- OUTSIDE RECORDS SUMMARY | 2025-04-19 07:03 | XMS_ITS | Encounter Summary ---
Author Organization [facility] Address [address] [facility] [address] 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 Gender Identity Not on file Sexual Orientation Not on file documented as of this encounter Plan of Treatment Not on file documented as of this encounter Procedures Procedure Name Priority Date/Time Associated Diagnosis Comments C-REACTIVE PROTEIN Routine 10/06/2007 12 :27 PM CDT documented in this encounter Results * (ABNORMAL) C-REACTIVE PROTEIN (10/06/2007 12:27 PM CDT) CRP 2.71(H) 0.00 - 1.00 mg/dL [facility] Blood specimen (specimen) 10/06/2007 12:27 PM CDT 10/06/2007 9:58 PM CDT Donnell Morales MD CHEMISTRY ORDERABLES Final Result [facility] [address] [place] [address] documented in this encounter Visit Diagnoses Not on filedocumented in this encounter Additional Health Concerns Infection Onset Date Last Indicated Resolved Time R/O COVID-19 08/19/2020 08/19/2020 08/20/2020 1:44 PM HEAT TREATER APPRENTICE documented as of this encounter Care Teams Drop Wire Operator Relationship Specialty Start Date End Date Jonathan Pham MD [address] [facility] [address] [place] [phone] PCP - General Family Practice 03/01/18 documented as of this encounter
--- OUTSIDE RECORDS SUMMARY | 2025-04-19 07:03 | XMS_ITS | Encounter Summary ---
Author Organization [facility] Address [address] [place] [address] Care Team Providers Care Hat Block Bench Hand Name Role Phone Jonathan Pham MD Primary Care Provider [phone] Encounter Details Date Type Department Care Team (Latest Contact Info) Description 04/21/2007 Outpatient Historical [facility] [address] [place] [address] Awilda Ulloa MD [address] [place] [address] Other Postoperative Infection (Primary Dx) Social History Tobacco Use Types Packs/Day Years Used Date Smoking Tobacco: Never Assessed Sex and Gender Information Value Date Recorded Sex Assigned at Not on file 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 Gender Identity Not on file Sexual Orientation Not on file documented as of this encounter Plan of Treatment Not on file documented as of this encounter Visit Diagnoses Diagnosis Other postoperative infection- Primary documented in this encounter Additional Health Concerns Infection Onset Date Last Indicated Resolved Time R/O COVID-19 08/19/2020 08/19/2020 08/20/2020 1:44 PM FOLDING MACHINE TENDER documented as of this encounter Care Teams Hat Block Bench Hand Relationship Specialty Start Date End Date Jonathan Pham MD [address] [phone] PCP - General Family Practice 03/01/18 documented as of this encounter
--- OUTSIDE RECORDS SUMMARY | 2025-04-19 07:03 | XMS_ITS | Encounter Summary ---
Author Organization [facility] Address [address] [facility] [address] 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
--- OUTSIDE RECORDS SUMMARY | 2025-04-19 07:03 | XMS_ITS | Encounter Summary ---
Author Organization [facility] Address [address] [place] [address] Care Team Providers Care Manager General Name Role Phone Jonathan Pham MD Primary Care Provider [phone] Encounter Details Date Type Department Care Team (Latest Contact Info) Description 04/21/2007 Outpatient Historical [facility] [address] 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 Gender Identity Not on file Sexual Orientation Not on file documented as of this encounter Plan of Treatment Not on file documented as of this encounter Visit Diagnoses Diagnosis Aftercare trauma surgery- Primary Aftercare following surgery for injury and trauma documented in this encounter Additional Health Concerns Infection Onset Date Last Indicated Resolved Time R/O COVID-19 08/19/2020 08/19/2020 08/20/2020 1:44 PM ENVIRONMENTAL ENGINEERING TECHNICIAN documented as of this encounter Care Teams Manager General Relationship Specialty Start Date End Date Jonathan Pham MD [address] [phone] PCP - General Family Practice 03/01/18 documented as of this encounter
--- OUTSIDE RECORDS SUMMARY | 2025-04-19 07:03 | XMS_ITS | Encounter Summary ---
Author Organization [facility] Address [address] [place] [address] Care Team Providers Care Chick Sexer Name Role Phone oJnathan Pham MD Primary Care Provider [phone] [phone] Encounter Details Date Type Department Care Team (Late st Contact Info) Description 11/24/2007 Outpatient Historical [facility] DEFAULT DEPARTMENT Awilda Ulloa MD [address] [place] [address] [address] Social History Tobacco Use Types Packs/Day Years Used Date Smoking Tobacco: Never Assessed Sex and Gender Information Value Date Recorded Sex Assigned at Not on file 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 Gender Identity Not on file Sexual Orientation Not on file documented as of this encounter Plan of Treatment Not on file documented as of this encounter Visit Diagnoses Not on filedocumented in this encounter Additional Health Concerns Infection Onset Date Last Indicated Resolved Time R/O COVID-19 08/19/2020 08/19/2020 08/20/2020 1:44 PM MANAGER OF SALES documented as of this encounter Care Teams Chick Sexer Relationship Specialty Start Date End Date Jonathan Pham MD [address] [facility] [address] [place] [phone] PCP - General Family Practice 03/01/18 documented as of this encounter
--- OUTSIDE RECORDS SUMMARY | 2025-04-19 07:03 | XMS_ITS | Encounter Summary ---
Author Organization [facility] Address [address] [facility] [address] 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
--- OUTSIDE RECORDS SUMMARY | 2025-04-19 07:03 | XMS_ITS | Encounter Summary ---
Author Organization [facility] Address [address] [place] [address] Care Team Providers Care Plastic And Reconstructive Surgeon Name Role Phone Jonathan Pham MD Primary Care Provider [phone] Encounter Details Date Type Department Care Team (Late st Contact Info) Description 07/20/2007 Outpatient Historical [facility] Infectious Disease 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 Gender Identity Not on file Sexual Orientation Not on file documented as of this encounter Plan of Treatment Not on file documented as of this encounter Visit Diagnoses Not on filedocumented in this encounter Additional Health Concerns Infection Onset Date Last Indicated Resolved Time R/O COVID-19 08/19/2020 08/19/2020 08/20/2020 1:44 PM LOCOMOTIVE BOILERMAKER documented as of this encounter Care Teams Plastic And Reconstructive Surgeon Relationship Specialty Start Date End Date Jonathan Pham MD [address] [phone] PCP - General Family Practice 03/01/18 documented as of this encounter
--- OUTSIDE RECORDS SUMMARY | 2025-04-19 07:03 | XMS_ITS | Encounter Summary ---
Author Organization [facility] Address [address] [place] [address] Care Team Providers Care Ip Technology Transactions Attorney Name Role Phone Jonathan Pham MD Primary Care Provider [phone] [phone] Encounter Details Date Type Department Care Team (Late st Contact Info) Description 06/15/2007 Outpatient Historical [facility] [address] 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 Gender Identity Not on file Sexual Orientation Not on file documented as of this encounter Plan of Treatment Not on file documented as of this encounter Visit Diagnoses Not on filedocumented in this encounter Additional Health Concerns Infection Onset Date Last Indicated Resolved Time R/O COVID-19 08/19/2020 08/19/2020 08/20/2020 1:44 PM MINING CAPTAIN documented as of this encounter Care Teams Ip Technology Transactions Attorney Relationship Specialty Start Date End Date Jonathan Pham MD [address] [phone] PCP - General Family Practice 03/01/18 documented as of this encounter
--- OUTSIDE RECORDS SUMMARY | 2025-04-19 07:03 | XMS_ITS | Encounter Summary ---
Author Organization [facility] Address [address] [place] [address] Care Team Providers Care Family Intervention Specialist Name Role Phone Jonathan Pham MD Primary Care Provider +1 [phone] Encounter Details Date Type Department Care Team (Late st Contact Info) Description 06/25/2007 Outpatient Historical [facility] [address] [place] [address] [place] [address] Noelle Wise PA [address] [place] [address] Social History Tobacco Use Types Packs/Day Years Used Date Smoking Tobacco: Never Assessed Sex and Gender Information Value Date Recorded Sex Assigned at Not on file Legal 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 Gender Identity Not on file Sexual Orientation Not on file documented as of this encounter Plan of Treatment Not on file documented as of this encounter Visit Diagnoses Not on filedocumented in this encounter Additional Health Concerns Infection Onset Date Last Indicated Resolved Time R/O COVID-19 08/19/2020 08/19/2020 08/20/2020 1:44 PM READING EFFICIENCY COURSE DIRECTOR documented as of this encounter Care Teams Family Intervention Specialist Relationship Specialty Start Date End Date Jonathan Pham MD [address] [phone] PCP - General Family Practice 03/01/18 documented as of this encounter
--- OUTSIDE RECORDS SUMMARY | 2025-04-19 07:03 | XMS_ITS | Encounter Summary ---
Author Organization [facility] Address [address] [place] [address] Care Team Providers Care Motor Power Connector Name Role Phone Jonathan Pham MD Primary Care Provider +1 [phone] Encounter Details Date Type Department Care Team (Latest Contact Info) Description 04/26/2007 Outpatient Historical [facility] 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); Encounter for Long-Term (Current) Use of Antibiotics Social History Tobacco Use Types Packs/Day Years Used Date Smoking Tobacco: Never Assessed Sex and Gender Information Value Date Recorded Sex Assigned at Not on file Legal Sex Male 6:19 AM HR RECRUITER Gender Identity Not on file Sexual Orientation [...] R/O COVID-19 08/19/2020 08/19/2020 08/20/2020 1:44 PM HR RECRUITER documented as of this encounter Care Teams Motor Power Connector Relationship Specialty Start Date End Date Jonathan Pham MD [address] [address] PCP - General Family Practice 03/01/18 documented as of this encounter
--- OUTSIDE RECORDS SUMMARY | 2025-04-19 07:03 | XMS_ITS | Encounter Summary ---
Author Organization [facility] Address [address] [place] [address] Care Team Providers Care Ab Initio Etl Developer Name Role Phone Jonathan Pham MD Primary Care Provider +1 [phone] Encounter Details Date Type Department Care Team (Late st Contact Info) Description 06/30/2007 Outpatient [facility] [address] [place] [address] Marcel Madrid MD [address] [place] [phone] Social History Tobacco Use Types Packs/Day Years Used Date Smoking Tobacco: Never Assessed Sex and Gender Information Value Date Recorded Sex Assigned at Not on file Legal Sex Male 6:19 AM ACCOUNTS PAYABLE ASSISTANT Gender Identity Not on file Sexual Orientation Not on file documented as of this encounter Plan of Treatment Not on file documented as of this encounter Visit Diagnoses Not on filedocumented in this encounter Additional Health Concerns Infection Onset Date Last Indicated Resolved Time R/O COVID-19 08/19/2020 08/19/2020 08/20/2020 1:44 PM ACCOUNTS PAYABLE ASSISTANT documented as of this encounter Care Teams Ab Initio Etl Developer Relationship Specialty Start Date End Date Jonathan Pham MD [address] [facility] [address] [place] [phone] PCP - General Family Practice 03/01/18 documented as of this encounter
--- OUTSIDE RECORDS SUMMARY | 2025-04-19 07:03 | XMS_ITS | Encounter Summary ---
Author Organization [facility] Address [address] [place] [address] Care Team Providers Care Material Specialist Name Role Phone Jonathan Pham MD Primary Care Provider +1 [phone] Encounter Details Date Type Department Care Team (Late st Contact Info) Description 09/06/2007 Outpatient [facility] [address] [place] [address] Marcel Madrid MD [address] [place] [phone] Social History Tobacco Use Types Packs/Day Years Used Date Smoking Tobacco: Never Assessed Sex and Gender Information Value Date Recorded Sex Assigned at Not on file Legal Sex Male 6:19 AM POWER TRANSFORMER INSPECTOR Gender Identity Not on file Sexual Orientation Not on file documented as of this encounter Plan of Treatment Not on file documented as of this encounter Visit Diagnoses Not on filedocumented in this encounter Additional Health Concerns Infection Onset Date Last Indicated Resolved Time R/O COVID-19 08/19/2020 08/19/2020 08/20/2020 1:44 PM POWER TRANSFORMER INSPECTOR documented as of this encounter Care Teams Material Specialist Relationship Specialty Start Date End Date Jonathan Pham MD [address] [facility] [address] [place] [phone] PCP - General Family Practice 03/01/18 documented as of this encounter
--- OUTSIDE RECORDS SUMMARY | 2025-04-19 07:03 | XMS_ITS | Encounter Summary ---
Author Organization [facility] Address [address]avez: [place] [address] Care Team Providers Care Landscape Engineer Name Role Phone Jonathan Pham MD Primary Care Provider +1 [phone] Encounter Details Date Type Department Care Team (Late st Contact Info) Description 04/11/2007 Outpatient Historical Damari Caballero, Tobi De La Fuente MD [address] [place] [address] Social History Tobacco Use Types Packs/Day Years Used Date Smoking Tobacco: Never Assessed Sex and Gender Information Value Date Recorded Sex Assigned at Not on file Legal Sex Male 6:19 AM PHOTO FINISH PHOTOGRAPHER Gender Identity Not on file Sexual Orientation [...] R/O COVID-19 08/19/2020 08/19/2020 08/20/2020 1:44 PM PHOTO FINISH PHOTOGRAPHER documented as of this encounter Care Teams Landscape Engineer Relationship Specialty Start Date End Date Jonathan Pham MD [address] [phone] PCP - General Family Practice 03/01/18 documented as of this encounter
--- OUTSIDE RECORDS SUMMARY | 2025-04-19 07:03 | XMS_ITS | Encounter Summary ---
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 The hardware is unremarkable in appearance. Exam appears unchanged compared with May2000. The old compression fractures are noted. Impression: Apparently stable exam. Dictated By: Bhanu Zepeda M.D. Electronically Signed By: Bhanu Zepeda M.D. Date Signed: 11/24/07 [facility] ORDERABLES Final Result documented in this encounter Visit Diagnoses Diagnosis Embolism and thrombosis of arteries of lower extremity Arthrodesis status long term care phlebotomist (current) use of anticoagulants Long-term (current) use of anticoagulants documented in this encounter Additional Health Concerns Infection Onset Date Last Indicated Resolved Time R/O COVID-19 08/19/2020 08/19/2020 08/20/2020 1:44 PM CARD GRINDER HELPER documented as of this encounter Care Teams Superintendent Tests Relationship Specialty Start Date End Date Jonathan Pham MD [address] [facility] [address] [place] [phone] PCP - General Family Practice 03/01/18 documented as of this encounter
--- OUTSIDE RECORDS SUMMARY | 2025-04-19 07:03 | XMS_ITS | Encounter Summary ---
Author Organization [facility] Address [address]avez: [place] [address] Care Team Providers Care Logistics Supervisor Name Role Phone Jonathan Pham MD Primary Care Provider [phone] [phone] Encounter Details Date Type Department Care Team (Late st Contact Info) Description 05/25/2007 Outpatient Historical Donnell Morales MD [id number] [place] [address] Social History Tobacco Use Types Packs/Day Years Used Date Smoking Tobacco: Never Assessed Sex and Gender Information Value Date Recorded Sex Assigned at Not on file Legal Sex Male 6:19 AM SUPERVISOR VENEER Gender Identity Not on file Sexual Orientation Not on file documented as of this encounter Plan of Treatment Not on file documented as of this encounter Procedures Procedure Name Priority Date/Time Associated Diagnosis Comments C-REACTIVE PROTEIN Routine 05/25/2007 12 :11 PM SUPERVISOR VENEER documented in this encounter Results * (ABNORMAL) C-REACTIVE PROTEIN (05/25/2007 12:11 PM SUPERVISOR VENEER) CRP 1.19(H) 0.00 - 1.00 mg/dL INTERFACE SYSTEM 05/25/2007 12:1 1 PM SUPERVISOR VENEER us Donnell Morales MD CHEMISTRY ORDERABLES Edite d INTERFACE SYSTEM Refer to clinic/hospital department documented in this encounter Visit Diagnoses Not on filedocumented in this encounter Additional Health Concerns Infection Onset Date Last Indicated Resolved Time R/O COVID-19 08/19/2020 08/19/2020 08/20/2020 1:44 PM SUPERVISOR VENEER documented as of this encounter Care Teams Logistics Supervisor Relationship Specialty Start Date End Date Jonathan Pham MD [address] [address] PCP - General Family Practice 03/01/18 documented as of this encounter
--- OUTSIDE RECORDS SUMMARY | 2025-04-19 07:03 | XMS_ITS | Encounter Summary ---
Author Organization [facility] Address [address] [place]: [place] [address] Care Team Providers Care Local Coordinator Name Role Phone Jonathan Pham MD Primary Care Provider +1 [phone] Encounter Details Date Type Department Care Team (Late st Contact Info) Description 09/07/2007 Outpatient Historical Donnell Morales MD [address] [place] [address] Social History Tobacco Use Types Packs/Day Years Used Date Smoking Tobacco: Never Assessed Sex and Gender Information Value Date Recorded Sex Assigned at Not on file Legal Sex Male 6:19 AM BEVEL GEAR GENERATOR OPERATOR Gender Identity Not on file Sexual Orientation Not on file documented as of this encounter Plan of Treatment Not on file documented as of this encounter Procedures Procedure Name Priority Date/Time Associated Diagnosis Comments C-REACTIVE PROTEIN Routine 09/07/2007 1: 41 PM BEVEL GEAR GENERATOR OPERATOR documented in this encounter Results * (ABNORMAL) C-REACTIVE PROTEIN (09/07/2007 1:41 PM BEVEL GEAR GENERATOR OPERATOR) CRP 5.04(H) 0.00 - 1.00 mg/dL [facility] Blood specimen (specimen) 09/07/2007 1:41 PM BEVEL GEAR GENERATOR OPERATOR 09/07/2007 9:53 PM BEVEL GEAR GENERATOR OPERATOR us Donnell Morales MD CHEMISTRY ORDERABLES Final Result [facility] [address] [place] [address] documented in this encounter Visit Diagnoses Not on filedocumented in this encounter Additional Health Concerns Infection Onset Date Last Indicated Resolved Time R/O COVID-19 08/19/2020 08/19/2020 08/20/2020 1:44 PM BEVEL GEAR GENERATOR OPERATOR documented as of this encounter Care Teams Local Coordinator Relationship Specialty Start Date End Date Jonathan Pham MD [address] [facility] [address] [place] [address] PCP - General Family Practice 03/01/18 documented as of this encounter
--- OUTSIDE RECORDS SUMMARY | 2025-04-19 07:03 | XMS_ITS | Encounter Summary ---
Author Organization [facility] Address [address]: Epic [place] [address] Care Team Providers Care Winch Stripper Name Role Phone Jonathan Pham MD Primary Care Provider +1 [phone] Encounter Details Date Type Department Care Team (Late st Contact Info) Description 04/25/2007 Outpatient Historical Damari Caballero, Tobi De La Fuente MD [address] [place] [address] Social History Tobacco Use Types Packs/Day Years Used Date Smoking Tobacco: Never Assessed Sex and Gender Information Value Date Recorded Sex Assigned at Not on file Legal Sex Male 6:19 AM SAUSAGE MACHINE OPERATOR Gender Identity Not on file [...] R/O COVID-19 08/19/2020 08/19/2020 08/20/2020 1:44 PM SAUSAGE MACHINE OPERATOR documented as of this encounter Care Teams Winch Stripper Relationship Specialty Start Date End Date Jonathan Pham MD [address] [phone] PCP - General Family Practice 03/01/18 documented as of this encounter
--- OUTSIDE RECORDS SUMMARY | 2025-04-19 07:03 | XMS_ITS | Encounter Summary ---
Author Organization [facility] Address [address] [place] [address] Care Team Providers Care Newspaper Photo Editor Name Role Phone Jonathan Pham MD Primary Care Provider +1 -[phone] Encounter Details Date Type Department Care Team (Late st Contact Info) Description 09/06/[address] [facility] Infectious Disease [address] [place] [address] Donnell Morales MD [address] [facility] [address] [place] [address] Social History Tobacco Use Types Packs/Day Years Used Date Smoking Tobacco: Never Assessed Sex and Gender Information Value Date Recorded Sex Assigned at Not on file Legal Sex Male 6:19 AM LICENSED MORTICIAN Gender Identity Not on file Sexual Orientation [...] 09/23/2007 10:32 , A, 635 Document #: [id number] cc: Marcel Madrid M.D. NSED MORTICIAN documented in this encounter Plan of Treatment Not on file documented as of this encounter Visit Diagnoses Not on filedocumented in this encounter Additional Health Concerns Infection Onset Date Last Indicated Resolved Time R/O COVID-19 08/19/2020 08/19/2020 08/20/2020 1:44 PM LICENSED MORTICIAN documented as of this encounter Care Teams Newspaper Photo Editor Relationship Specialty Start Date End Date Jonathan Pham MD [address] [phone] PCP - General Family Practice 03/01/18 documented as of this encounter
--- OUTSIDE RECORDS SUMMARY | 2025-04-19 07:04 | XMS_ITS | Encounter Summary ---
Author Organization [facility] Address [address] [place] [address] Care Team Providers Care Pet Care Attendant Name Role Phone Jonathan Pham MD Primary Care Provider +1 -[phone] Encounter Details Date Type Department Care Team (Late st Contact Info) Description 06/13/2007 Outpatient Historical [facility] Social History Tobacco Use Types Packs/Day Years Used Date Smoking Tobacco: Never Assessed Sex and Gender Information Value Date Recorded Sex Assigned at Not on file Legal Sex Male 6:19 AM CAMPUS SECURITY DIRECTOR Gender Identity Not on file Sexual Orientation Not on file documented as of this encounter Plan of Treatment Not on file documented as of this encounter Visit Diagnoses Not on filedocumented in this encounter Additional Health Concerns Infection Onset Date Last Indicated Resolved Time R/O COVID-19 08/19/2020 08/19/2020 08/20/2020 1:44 PM CAMPUS SECURITY DIRECTOR documented as of this encounter Care Teams Pet Care Attendant Relationship Specialty Start Date End Date Jonathan Pham MD [address] [facility] [address] [place] [address] PCP - General Family Practice 03/01/18 documented as of this encounter
--- OUTSIDE RECORDS SUMMARY | 2025-04-19 07:04 | XMS_ITS | Encounter Summary ---
Author Organization [facility] Address [address] [place] [address] Care Team Providers Care Passenger Elevator Operator Name Role Phone Jonathan Pham MD Primary Care Provider +1 -[phone] Encounter Details Date Type Department Care Team (Latest Contact Info) Description 05/09/2007 Outpatient Historical [facility] [address] [place] [address] [place] [address] Noelle Wise PA [address] [address] [place] [address] Other Orthopedic Aftercare (Primary Dx) Social History Tobacco Use Types Packs/Day Years Used Date Smoking Tobacco: Never Assessed Sex and Gender Information Value Date Recorded Sex Assigned at Not on file Legal Sex Male 6:19 AM FULL TIME PARAMEDIC Gender Identity Not on file Sexual Orientation Not on file documented as of this encounter Plan of Treatment Not on file documented as of this encounter Visit Diagnoses Diagnosis Other orthopedic aftercare(V54.89)- Primary Other orthopedic aftercare documented in this encounter Additional Health Concerns Infection Onset Date Last Indicated Resolved Time R/O COVID-19 08/19/2020 08/19/2020 08/20/2020 1:44 PM FULL TIME PARAMEDIC documented as of this encounter Care Teams Passenger Elevator Operator Relationship Specialty Start Date End Date Jonathan Pham MD [address] [facility] [address] [place] [phone] PCP - General Family Practice 8/14/18 documented as of this encounter
--- OUTSIDE RECORDS SUMMARY | 2025-04-19 07:04 | XMS_ITS | Encounter Summary ---
Author Organization [facility] Address [address] [place] [address] Care Team Providers Care Paster Operator Name Role Phone Jonathan Pham MD Primary Care Provider +1 -[phone] Encounter Details Date Type Department Care Team (Late st Contact Info) Description 05/09/2007 Outpatient Historical [facility] [address] [place] [address] Social History Tobacco Use Types Packs/Day Years Used Date Smoking Tobacco: Never Assessed Sex and Gender Information Value Date Recorded Sex Assigned at Not on file Legal Sex Male 6:19 AM RAIL WASHER Gender Identity Not on file Sexual Orientation Not on file documented as of this encounter Plan of Treatment Not on file documented as of this encounter Visit Diagnoses Not on filedocumented in this encounter Additional Health Concerns Infection Onset Date Last Indicated Resolved Time R/O COVID-19 08/19/2020 08/19/2020 08/20/2020 1:44 PM RAIL WASHER documented as of this encounter Care Teams Paster Operator Relationship Specialty Start Date End Date Jonathan Pham MD [address] [phone] PCP - General Family Practice 03/01/18 documented as of this encounter
--- OUTSIDE RECORDS SUMMARY | 2025-04-19 07:04 | XMS_ITS | Encounter Summary ---
Author Organization [facility] Address [address] [place] [address] Care Team Providers Care Alcohol And Drug Counselor Name Role Phone Jonathan Pham MD Primary Care Provider +1 -[phone] Encounter Details Date Type Department Care Team (Latest Contact Info) Description 06/13/2007 Outpatient Historical [facility] Infectious Disease 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); Encounter for Long-Term (Current) Use of Antibiotics Social History Tobacco Use Types Packs/Day Years Used Date Smoking Tobacco: Never Assessed Sex and Gender Information Value Date Recorded Sex Assigned at Not on file Legal Sex Male 6:19 AM ORTHOPEDIC BRACE MAKER Gender Identity Not on file Sexual [...] R/O COVID-19 08/19/2020 08/19/2020 08/20/2020 1:44 PM ORTHOPEDIC BRACE MAKER documented as of this encounter Care Teams Alcohol And Drug Counselor Relationship Specialty Start Date End Date Jonathan Pham MD [address] [phone] PCP - General Family Practice 03/01/18 documented as of this encounter
--- OUTSIDE RECORDS SUMMARY | 2025-04-19 07:04 | XMS_ITS | Encounter Summary ---
Author Organization [facility] Address [address]: Epic [place] [address] Care Team Providers Care Pulmonary Disease Specialist Name Role Phone Jonathan Pham MD Primary Care Provider +1 -[phone] Encounter Details Date Type Department Care Team (Late st Contact Info) Description 05/02/2007 Outpatient Historical Damari Caballero, Tobi De La Fuente MD [address] [place] [address] Social History Tobacco Use Types Packs/Day Years Used Date Smoking Tobacco: Never Assessed Sex and Gender Information Value Date Recorded Sex Assigned at Not on file Legal Sex Male 6:19 AM DINING ROOM COORDINATOR Gender Identity Not on file Sexual [...] R/O COVID-19 08/19/2020 08/19/2020 08/20/2020 1:44 PM DINING ROOM COORDINATOR documented as of this encounter Care Teams Pulmonary Disease Specialist Relationship Specialty Start Date End Date Jonathan Pham MD [address] [phone] PCP - General Family Practice 03/01/18 documented as of this encounter
--- OUTSIDE RECORDS SUMMARY | 2025-04-19 07:04 | XMS_ITS | Clinical Summary ---
Author Organization [facility] Address [address] [place] [address] Phone Care Team Providers Care Distributor Sales Manager Name Role Phone Jonathan Pham MD Primary Care Provider +1 -[phone] Allergies Active Allergy Reactions Criticality Noted Date [...] Each 3 Active naloxone (NARCAN) 4 mg/spray [place], Non-Aerosol EMERGENCY USE ONLY: Administer 1 spray (4 mg) in one nostril one time. May repeat in alternating nostrils every 2-3 min until responsive or EMS arrives. 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 [place] [address] [facility] [address] [place] [address] 04/09/2025 Telephone [facility] Gastro[facility] [address] [facility] [address] [place] [address] Brandon Cabrera MD (John) Erroneous encounter-disregard 03/20/2025 External Device Data STL ABSTRACTION Provider, Abstract 03/14/2025 10:05 AM CDT Anesthesia Event [facility] Operating Room [address] [facility] [address] [place] [address] Sherly Abbott, SETH 03/14/2025 10:05 AM CDT - 03/14/2025 10:41 AM CDT Surgery [facility] Operating Room [address] [facility] [address] [place] [address] Javed Stanley MD CATHETER VENOUS ACCESS REMOVAL 03/14/2025 8:15 AM CDT - 03/14/2025 10:46 AM CDT Hospital Encounter [facility] Pre Post [address] [place] [address] Javed Stanley MD Port-A-Cath in place Discharge Disposition: Home or Self Care 03/13/[address] [place] [address] Jonathan Pham MD Patient Communication 03/13/2025 Results Follow-Up [facility] [address] [place] [address] Leann Mckinney, QUARTZ MOUNTER MAMMO 3D ANKUSH DIAGNOSTIC BILAT W OR WO CAD 03/13/2025 Orders Only [address] [place] [address] Leann Mckinney, QUARTZ MOUNTER Soft tissue mass 02/22/[address] [place] [address] Jonathan Pham MD Patient Communication 02/21/2025 2:22 PM CDT - 02/21/2025 11:59 PM CDT Hospital Encounter [facility] [address] [facility] [address] [place] [address] Javed Stanley MD Discharge Disposition: Home or Self Care 02/21/[address] [facility] [address] [facility] [address] [place] [address] Javed Stanley MD 01/31/2025 External Device Data STL ABSTRACTION Provider, Abstract 01/31/2025 External Device Data STL ABSTRACTION Provider, Abstract 01/25/[address] [place] [address] Jonathan Pham MD Patient Communication 01/23/2025 2:24 PM CDT - 01/23/2025 11:59 PM CDT Hospital Encounter [facility] [address] [facility] [address] [place] [address] Ron Hallman NP Discharge Disposition: Home or Self Care 01/23/2025 1:40 PM CDT Office Visit [address] [address] Leann Mckinney, CARMITA Calculus of gallbladder without cholecystitis without obstruction (Primary Dx); Soft tissue mass; Foreign body in left forearm, initial encounter; Port-A-Cath in place; Bilateral hearing loss, unspecified hearing loss type; Vision changes; Type 2 diabetes mellitus with other skin ulcer, without long-term current use of insulin ([facility]) 01/23/2025 Orders Only [address] [address] Leann Mckinney, CARMITA Soft tissue mass (Primary [...] week 09/10/2020 How often do you attend jainism or sikh serv ices? Never 09/10/2020 Do you belong to any clubs o r organizations such as jainism groups, unions, fraternal or athletic groups, or [...] on file Legal Sex Male 11:45 AM PATIENT SUPPORT ASSOCIATE Gender Identity Not on file Sexual [...] Description 04/19/2025 1:30 PM CDT Hospital Encounter [facility] [place] [address] [address] 05/07/2025 2:00 PM CDT Office Visit [facility] [place] [address] [address] Jonathan Pham MD [address] [phone] Health Maintenance Due Date Last Done Comments [...] 60-74 years 1-dose series) 2019 Medicare Advantage ([place]) Preventative Visit/Annual Wellness Visit 07/19/2024 Abdominal Aortic [...] Procedure Name Priority Date/Time Associated Diagnosis Comments [place] [facility] KRISTA CTR VAD W/SUBQ PORT/VALIDATION TECHNICIAN CTR/PRPH INSJ 03/14/2025 10:05 AM CDT Port-A-Cath [...] RATIO, RANDOM UR Routine 08/03/2024 2:45 PM PATIENT SUPPORT ASSOCIATE Type 2 diabetes mellitus with other skin ulcer, without long-term current use of insulin (CMS/HCC) COLON CANCER SCREEN, STOOL DNA Routine 12/28/2022 2:39 PM CDT Encounter for colorectal cancer screening from Last 3 Months or Most Recently Relevant to Health Maintenance Results * (ABNORMAL) POC GLUCOSE (03/14/2025 9:15 AM CDT) GLUCOSE POC 117(H) 74 - 99 mg/dL 03/14/2025 9:15 AM CDT [facility] SPECIMEN SOURCE, GLUCOSE POC Whole Blood 03/14/2025 9:15 AM CDT [facility] Blood, whole 03/14/2025 9:1 5 AM CDT 03/14/2025 9:23 AM CDT us Javed Stanley MD POINT OF CARE TESTING Final Resu lt [facility] CLIA # [id number] [address] [place] [id number] * MAMMO BREAST US BILAT LTD (03/12/2025 10:13 AM CDT) Anatomical Region Laterality Modality Bilateral Mammography us Leann Bergmanriott [facility] MAMMO ORDERABLES Edited Result - Final * MAMMO 3D ANKUSH DIAGNOSTIC BILAT W OR WO CAD (03/12/2025) Anatomical Region Laterality Modality Breast Bilateral Mammography Leann Bergmanriott [facility] MAMMO ORDERABLES Final R esult * COMPREHENSIVE METABOLIC PANEL (01/09/2025 4:11 PM CDT) Blood Abstract Provider CHEMISTRY ORDERABLES Final Res ult * (ABNORMAL) HEMOGLOBIN A1C (11/03/2024 1:14 PM CDT) HEMOGLOBIN A1C 7.3(H) <5.7 % [facility] Comment: For someone without known diabetes, [...] [facility] Comment: Test Performed at: [facility] [id number] [place] [employer] [place] [address] Julio Armas MD Blood 11/03/2024 1:14 PM CDT 11/04/2024 3:27 AM CDT Leann Bergmanriott [facility] CHEMISTRY ORDERABLES Fin al Result [facility] [phone] [facility] [address] [address] [place] [facility] [place] [address] * (ABNORMAL) LIPID PANEL (11/03/2024 1:14 PM [...] LDL-C. Migel SS et al. BRIGETTE. 2013;310(19): 0270-6590 (http://education.Joturl/faq/EZR368) CHOL/HDL RATIO 4.7 <5.0 (calc) [facility] NON-HDL CHOLESTEROL 125 <130 mg/dL (calc) [facility] Comment: For patients with diabetes plus 1 major ASCVD risk factor, treating to a non-HDL-C goal of <100 mg/dL (LDL-C of <70 mg/dL) is considered a therapeutic option. Test Performed at: [facility] [address] [facility] [place] [address] Julio Armas MD Blood 11/03/2024 1:14 PM CDT 11/04/2024 3:27 AM CDT Leann VIZCARRA CHEMISTRY ORDERABLES Fin al Result [facility] [phone] [place] [address] [facility] [place] [address] * (ABNORMAL) MICROALBUMIN/CREATININE RATIO, RANDOM UR (08/03/2024 2:45 PM PATIENT SUPPORT ASSOCIATE) Creatinine, Urine 69 20 - 320 mg/dL [facility] MICROALBUMIN, URINE 31.8 See Note: mg/dL [facility] Comment: Reference Range: Reference Range Not established Verified by repeat analysis. MICROALBUMIN/CREAT RATIO, UR 461(H) <30 mg/g creat [facility] Comment: The ADA defines abnormalities in albumin excretion as follows: Albuminuria Category Result (mg/g creatinine) Normal to Mildly increased <30 Moderately increased 30-299 Severely increased > OR = 300 The ADA recommends that at least two of three specimens collected within a 3-6 month period be abnormal before considering a patient to be within a diagnostic category. Test Performed at: [facility] [address] [place] [address] Julio Armas MD Urine URINE SPECIMEN OBTAINED BY CLEAN CATCH PROCEDURE / Unknown 08/03/2024 2:45 PM PATIENT SUPPORT ASSOCIATE 08/04/2024 6:29 AM PATIENT SUPPORT ASSOCIATE Jonathan Pham MD URINE ORDERABLES Final Re sult [facility] [phone] [facility] [address] [place] [address] * COLON CANCER SCREEN, STOOL DNA (12/28/2022 2:39 PM CDT) Pathologist [facility] COLOGUARD RESULT Negative Negative [facility] Comment: NEGATIVE TEST RESULT. A negative [...] (María Patiño al, N Engl J Med 2014;370(14):2925-6907) The normal value (reference range) for this assay is negative. COLOGUARD RE-SCREENING RECOMMENDATION: Periodic colorectal cancer screening is an important part of preventive healthcare for asymptomatic individuals at average risk for colorectal cancer. Following a negative Cologuard result, the [place] Cancer Society and U.S. Multi-Society Task Force screening guidelines recommend a Cologuard re-screening interval of 3 years. References: [place] [employer] Guideline for Colorectal Cancer Screening: https://www.cancer.org/cancer/gpwpp-flgvql-gxdqye/rhncgtynl-qohxambqo-nfmssmp/ac s-rec ommendations.html.; Bandar DK, Nohemy SLADE, Mi StilesK, Colorectal Cancer Screening: Recommendations for Physicians and Patients from the U.S. Multi-Society Task Force on Colorectal Cancer Screening , Am J Gastroenterology 2017; 112:6553-9251. TEST DESCRIPTION: Composite algorithmic analysis of stool [...] colonoscopy. (María Vuong, N Engl J Med 2014;370(14):3738-5827.) Cologuard may produce a false negative or false positive result (no colorectal cancer or precancerous polyp present at colonoscopy follow up). A negative Cologuard test result does not guarantee the absence of CRC or advanced adenoma (pre-cancer). The current Cologuard screening interval is every 3 years. ([place] Cancer Society and U.S. Multi-Society Task Force). Cologuard performance data in a 10,000 patient pivotal study using colonoscopy as the reference method can be accessed at the following location: www.TranquilMed.Dot/results. Additional description of the Cologuard test process, warnings and precautions can be found at www.[facility].com. Stool STOOL SPECIMEN / Unknown 12/28/2022 2:39 PM CDT 12/30/2022 1:35 AM CDT Leann Mckinney QUARTZ MOUNTER BODY FLUIDS AND STOOLS F inal Result [employer] CLIA # [id number] [address] [facility] [place] [address] from Last 3 Months or Most Recently Relevant to Health Maintenance Insurance MEDICAID [facility] DUAL COMPLETE HMO [facility] [id number] [place] [address] RX INFOCROSSING Medicaid Advance Directives For more information, please contact: [phone] * Full Code (Latest Code Status on [...] 7:47 PM 01/14/2023 1:39 PM Care Teams Distributor Sales Manager Relationship Specialty Start Date End Date Jonathan Pham MD [address] [phone] PCP - General Family Practice 03/01/18
--- OUTSIDE RECORDS SUMMARY | 2025-04-19 07:04 | XMS_ITS | Encounter Summary ---
Author Organization [facility] Address [address] [place] [address] Care Team Providers Care Gravel Roofer Name Role Phone Jonathan Pham MD Primary Care Provider [phone] [phone] Encounter Details Date Type Department Care Team (Late st Contact Info) Description 05/09/2007 Outpatient Historical HIS [facility] Social History Tobacco Use Types Packs/Day Years Used Date Smoking Tobacco: Never Assessed Sex and Gender Information Value Date Recorded Sex Assigned at Not on file Legal Sex Male 6:19 AM CARDIOLOGY FELLOW Gender Identity Not on file Sexual Orientation Not on file documented as of this encounter Plan of Treatment Not on file documented as of this encounter Visit Diagnoses Not on filedocumented in this encounter Additional Health Concerns Infection Onset Date Last Indicated Resolved Time R/O COVID-19 08/19/2020 08/19/2020 08/20/2020 1:44 PM CARDIOLOGY FELLOW documented as of this encounter Care Teams Gravel Roofer Relationship Specialty Start Date End Date Jonathan Pham MD [address] [facility] [address] [place] [address] PCP - General Family Practice 03/01/18 documented as of this encounter
--- OUTSIDE RECORDS SUMMARY | 2025-04-19 07:05 | XMS_ITS | Encounter Summary ---
Author Organization [facility] Address [address] [place] [address] Care Team Providers Care Gusset Stitcher Name Role Phone Jonathan Pham MD Primary Care Provider +1 [phone] Encounter Details Date Type Department Care Team (Late st Contact Info) Description 05/09/2007 Outpatient [facility] [address] Social History Tobacco Use Types Packs/Day Years Used Date Smoking Tobacco: Never Assessed Sex and Gender Information Value Date Recorded Sex Assigned at Not on file Legal Sex Male 6:19 AM HYPERBARIC WELDER DIVER Gender Identity Not on file Sexual Orientation Not on file documented as of this encounter Plan of Treatment Not on file documented as of this encounter Visit Diagnoses Not on filedocumented in this encounter Additional Health Concerns Infection Onset Date Last Indicated Resolved Time R/O COVID-19 08/19/2020 08/19/2020 08/20/2020 1:44 PM HYPERBARIC WELDER DIVER documented as of this encounter Care Teams Gusset Stitcher Relationship Specialty Start Date End Date Jonathan Pham MD [address] [phone] PCP - General Family Practice 03/01/18 documented as of this encounter
--- OUTSIDE RECORDS SUMMARY | 2025-04-19 07:05 | XMS_ITS | Encounter Summary ---
Author Organization [facility] Address [address] [place] [address] Care Team Providers Care Desk Officer Name Role Phone Jonathan Pham MD Primary Care Provider [phone] [phone] Encounter Details Date Type Department Care Team (Latest Contact Info) Description 05/04/2007 Outpatient Historical [facility] Infectious Disease [address] [place] [address] Donnell Morales MD [address] [facility] [address] [place] [address] Infection, Orth Device NEC (CMS/[facility]) (Primary Dx); Encounter for Long-Term (Current) Use of Antibiotics Social History Tobacco Use Types Packs/Day Years Used Date Smoking Tobacco: Never Assessed Sex and Gender Information Value Date Recorded Sex Assigned at Not on file Legal Sex Male 6:19 AM SKIVER COUNTER Gender Identity Not on file Sexual Orientation [...] R/O COVID-19 08/19/2020 08/19/2020 08/20/2020 1:44 PM SKIVER COUNTER documented as of this encounter Care Teams Desk Officer Relationship Specialty Start Date End Date Jonathan Pham MD [address] [address] PCP - General Family Practice 03/01/18 documented as of this encounter
[2025-04-19] MEDS: norepinephrine 4 MG/250 ML BAG 30 MG IV (07:06)
--- OUTSIDE RECORDS SUMMARY | 2025-04-19 07:06 | XMS_ITS | Encounter Summary ---
Author Organization [facility] Address [address] [place] [address] Care Team Providers Care Roll Cleaner Name Role Phone Jonathan Pham MD Primary Care Provider [phone] [phone] Encounter Details Date Type Department Care Team (Late st Contact Info) Description 03/31/2007 Inpatient Historical HIS IN BED Awilda Ulloa MD [address] [address] Other Postoperative Infection (Primary Dx) Social History Tobacco Use Types Packs/Day Years Used Date Smoking Tobacco: Never Assessed Sex and Gender Information Value Date Recorded Sex Assigned at Not on file Legal Sex Male 6:19 AM SCRAP DROP OPERATOR Gender Identity Not on file Sexual [...] * PROTIME-INR (04/06/2007 8:47 AM CDT) Pathologist [facility] PROTIME 15.4 13.0 - 15.7 Secs INTERFACE SYSTEM Comment: As of 06 note change in normal range. INR 1.1 INTERFACE SYSTEM Comment: Expected Values for INR: DVT/PE Goal INR 2.5; range 2.0 - 3.0 Valve Replacement Tissue Goal INR 2.5; range 2.0 - 3.0 Mechanical Goal INR 3.0; range 2.5 - 3.5 POST-PR Goal INR 2.5; range 2.0 - 3.0 [...] CBC WITH DIFFERENTIAL (04/06/2007 8:47 AM CDT) [facility] WBC 5.2 4.5 - 11.0 K/ul [...] Goal INR 3.0; range 2.5 - 3.5 POST-PR Goal INR 2.5; range 2.0 - 3.0 [...] Goal INR 3.0; range 2.5 - 3.5 POST-PR Goal INR 2.5; range 2.0 - 3.0 [...] MD HEMATOLOGY ORDERABLES Edited Performing Organization Address City/[facility] de Phone Number INTERFACE SYSTEM Refer to clinic/hospital department * VANCOMYCIN LEVEL PEAK (04/03/2007 9:33 PM CDT) Pathologist [facility] VANCOMYCIN, PEAK 28.6 25.0 - 40.0 mcg/mL INTERFACE SYSTEM 04/03/2007 9:33 PM CDT Awilda Ulloa MD CHEMISTRY ORDERABLES Edited Performing Organization Address [facility] de Phone Number INTERFACE SYSTEM Refer to clinic/hospital department * VANCOMYCIN LEVEL TROUGH (04/03/2007 7:25 PM CDT) Pathologist [facility] VANCOMYCIN, TROUGH 10.3 5.0 - 15.0 mcg/mL INTERFACE SYSTEM 04/03/2007 7:25 PM CDT Awilda Ulloa MD CHEMISTRY ORDERABLES Edited Performing Organization Address City/[facility] de Phone Number INTERFACE SYSTEM Refer to clinic/hospital department * (ABNORMAL) CBC WITH DIFFERENTIAL (04/03/2007 6:58 AM CDT) Pathologist [facility] WBC 6.8 4.5 - 11.0 K/ul INTERFACE [...] MD HEMATOLOGY ORDERABLES Edited Performing Organization Address City/[facility] de Phone Number INTERFACE SYSTEM Refer to [...] Goal INR 3.0; range 2.5 - 3.5 POST-PR Goal INR 2.5; range 2.0 - 3.0 [...] MD CHEMISTRY ORDERABLES Edited Performing Organization Address [facility] Phone Number INTERFACE SYSTEM Refer to clinic/hospital department * (ABNORMAL) BASIC METABOLIC PANEL (04/02/2007 6:47 AM CDT) Pathologist [facility] GLUCOSE 96 70 - 110 mg/dL INTERFACE [...] MD CHEMISTRY ORDERABLES Edited Performing Organization Address [facility] Phone Number INTERFACE SYSTEM Refer [...] Goal INR 3.0; range 2.5 - 3.5 POST-PR Goal INR 2.5; range 2.0 - 3.0 [...] MD HEMATOLOGY ORDERABLES Edited Performing Organization Address City/[facility] de Phone Number INTERFACE SYSTEM Refer to [...] Goal INR 3.0; range 2.5 - 3.5 POST-PR Goal INR 2.5; range 2.0 - 3.0 or Goal 3.0; range 2.5 - 3.5 Atrial Fibrillation Goal INR 2.5; range 2.0 - 3.0 Ischemic Stroke Goal INR 2.5; range 2.0 - 3.0 For additional information see Guidelines for Anticoagulation available from the pharmacy Michael Chaudhry. 04/01/2007 3:54 PM CDT Awilda Ulloa MD HEMATOLOGY ORDERABLES Edited Performing Organization Address City/[facility] de Phone Number INTERFACE SYSTEM Refer to [...] MD HEMATOLOGY ORDERABLES Edited Performing Organization Address City/[facility] de Phone Number INTERFACE SYSTEM Refer to [...] Goal INR 3.0; range 2.5 - 3.5 POST-PR Goal INR 2.5; range 2.0 - 3.0 or Goal 3.0; range 2.5 - 3.5 Atrial Fibrillation Goal INR 2.5; range 2.0 - 3.0 Ischemic Stroke Goal INR 2.5; range 2.0 - 3.0 For additional information see Guidelines for Anticoagulation available from the pharmacy [facility]audh[facility]. 04/01/2007 8:12 AM CDT Awilda Ulloa MD HEMATOLOGY ORDERABLES Edited Performing Organization Address City/[facility] de Phone Number INTERFACE SYSTEM Refer to [...] R/O COVID-19 08/19/2020 08/19/2020 08/20/2020 1:44 PM SCRAP DROP OPERATOR documented as of this encounter Care Teams Roll Cleaner Relationship Specialty Start Date End Date Jonathan Pham MD [address] [phone] PCP - General Family Practice 03/01/18 documented as of this encounter
--- OUTSIDE RECORDS SUMMARY | 2025-04-19 07:06 | XMS_ITS | Clinical Summary ---
Author Organization [facility] Address [address] [place] [address] Care Team Providers Care Stockfeed Miller Name Role Phone Jonathan Pham MD Primary Care Provider [phone] [phone] Allergies Active Allergy Reactions Criticality Noted Date [...] Resolved Date Alonso catheter in place 09/19/202012/2020 skilled nursing (current) use of opiate analgesic 03/30/2018 03/09/2020 [...] Comments Cancer Father Israel Heart Failure Father Israle Cancer Maternal Grandmother Diabetes Maternal Grandmother Diabetes [...] week 09/10/2020 How often do you attend mandaen or temple serv ices? 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 AVG GLUCOSE, A1C 246 mg/dL 11/22/2020 8:26 PM CDT [facility] Blood Collection / Unknown 11/21/2020 4:12 PM CDT 11/22/2020 7:56 PM CDT Narrative [facility] - 11/22/2020 8:26 PM CDT HGB A1C INTERPRETATION NORMAL: <5.7% PRE-DIABETES: 5.7 - 6.4% DIABETES: 6.5% OR GREATER Falsely low A1C measurements can occur when: 1. Anemia and/or hemolytic anemia is present. 2. Hemoglobin variants present. 3. Renal failure. 4. Transfusion of blood product in the last 120 days. We recommend ordering a fructosamine test([id number]) to more accurately assess glycemic status if any of the above conditions are present. Jonathan Pham MD CHEMISTRY ORDERABLES Qiana perez Result Performing Organization Address City/State/[facility] Co de Phone Number [facility] CLIA# [id number] [address] [place] [address] from Last 3 Months or Most Recently Relevant to Health Maintenance Insurance [address] [place] [address] [place] [address] [place] [address] [place] Advance Directives For more information, please contact: [phone] * Full Code (Latest Code Status on File) Date Activated Date Inactivated Comments 09/10/2020 1:00 AM 09/11/2020 4:50 PM * Full Code Date Activated Date Inactivated Comments 09/11/2017 6:03 AM 09/14/2017 5:20 PM Care Teams Stockfeed Miller Relationship Specialty Start Date End Date Jonathan Pham MD [address] [facility] [address] [place] [phone] PCP - General Family Practice 03/01/18
--- OUTSIDE RECORDS SUMMARY | 2025-04-19 07:07 | XMS_ITS | Encounter Summary ---
Author Organization [facility] Address [address] [place] [address] Care Team Providers Care Electronic Coils Supervisor Name Role Phone Jonathan Pham MD Primary Care Provider [phone] [phone] Encounter Details Date Type Department Care Team (Latest Contact Info) Description 03/29/2007 Outpatient Historical [facility] [address] [address] [facility] [address] [place] [address] Awilda Ullao MD [address] [place] [address] Other Postoperative Infection (Primary Dx) Social History Tobacco Use Types Packs/Day Years Used Date Smoking Tobacco: Never Assessed Sex and Gender Information Value Date Recorded Sex Assigned at Not on file Legal Sex Male 6:19 AM PROCEDURE RN Gender Identity Not on file Sexual [...] MD HEMATOLOGY ORDERABLES Edited Performing Organization Address City/[facility] de Phone Number INTERFACE SYSTEM Refer [...] Goal INR 3.0; range 2.5 - 3.5 [place] Goal INR 2.5; range 2.0 - 3.0 or Goal 3.0; range 2.5 - 3.5 Atrial Fibrillation Goal INR 2.5; range 2.0 - 3.0 Ischemic Stroke Goal INR 2.5; range 2.0 - 3.0 For additional information see Guidelines for Anticoagulation available from the pharmacy Michael Chaudhyr. 03/29/2007 1:19 PM CDT us Awilda Ulloa MD HEMATOLOGY ORDERABLES Edited INTERFACE SYSTEM Refer to clinic/hospital department * (ABNORMAL) C-REACTIVE PROTEIN (03/29/2007 1:19 PM CDT) Pathologist [facility] CRP 12.30(H) 0.00 - 1.00 mg/dL INTERFACE SYSTEM 03/29/2007 1:19 PM CDT Awilda Ulloa MD CHEMISTRY ORDERABLES Edited Performing Organization Address City/[facility]/ZIP Co de Phone Number INTERFACE SYSTEM Refer to clinic/hospital department * (ABNORMAL) SEDIMENTATION RATE (03/29/2007 1:19 PM CDT) Pathologist [facility] ESR (SEDIMENTATION RATE) 54(H) 0 - 20 mm/hr INTERFACE SYSTEM 03/29/2007 1:19 PM CDT Awilda Ulloa MD HEMATOLOGY ORDERABLES Edited Performing Organization Address [facility] de Phone Number INTERFACE SYSTEM Refer to clinic/hospital department * (ABNORMAL) CBC WITH DIFFERENTIAL (03/29/2007 1:19 PM CDT) Pathologist [facility] WBC 9.1 4.5 - 11.0 K/ul INTERFACE [...] R/O COVID-19 08/19/2020 08/19/2020 08/20/2020 1:44 PM PROCEDURE RN documented as of this encounter Care Teams Electronic Coils Supervisor Relationship Specialty Start Date End Date Jonathan Pham MD [address] [place] [address] PCP - General Family Practice 03/01/18 documented as of this encounter
--- OUTSIDE RECORDS SUMMARY | 2025-04-19 07:07 | XMS_ITS | Encounter Summary ---
Author Organization [facility] Address [address] [place] [address] Care Team Providers Care Salesperson Hosiery Name Role Phone Jonathan Pham MD Primary Care Provider [phone] [phone] Encounter Details Date Type Department Care Team (Late st Contact Info) Description 02/13/2007 Inpatient Historical HIS IN BED Awilda Ulloa MD [address] [address] Kvng Braga MD NO ADDRESS ON FILE Closed Fracture of T1-T6 Level with Complete Lesion of Cord (Primary Dx) Social History Tobacco Use Types Packs/Day Years Used Date Smoking Tobacco: Never Assessed Sex and Gender Information Value Date Recorded Sex Assigned at Not on file 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 Phone Number INTERFACE SYSTEM Refer to clinic/hospital department * (ABNORMAL) POC GLUCOSE (02/18/2007 5:06 PM CDT) GLUCOSE POC 106(H) 60 - 100 mg/dL INTERFACE SYSTEM 02/18/2007 5:06 PM CDT us Kvng Braga MD POINT OF CARE TESTING Edite d Performing Organization Address [facility] Phone Number INTERFACE SYSTEM Refer to clinic/hospital department * POC GLUCOSE (02/18/2007 5:02 PM CDT) GLUCOSE POC 71 60 - 100 mg/dL INTERFACE SYSTEM 02/18/2007 5:02 PM CDT Result Brianna Braga MD POINT OF CARE TESTING Edite d Performing Organization Address City/[facility] de Phone Number INTERFACE SYSTEM Refer to clinic/hospital department * (ABNORMAL) HEMOGLOBIN AND HEMATOCRIT (02/18/2007 1:30 PM CDT) HEMOGLOBIN 9.3(L) 14.0 - 18.0 g/dL INTERFACE SYSTEM HEMATOCRIT 27.9(L) 41.0 - 53.0 % INTERFACE SYSTEM 02/18/2007 1:30 PM CDT us Kvng Braga MD HEMATOLOGY ORDERABLES Edite d Performing Organization Address [facility] Phone Number INTERFACE SYSTEM Refer to clinic/hospital department * (ABNORMAL) POC GLUCOSE (02/18/2007 11:35 AM CDT) GLUCOSE POC 111(H) 60 - 100 mg/dL INTERFACE SYSTEM 02/18/2007 11:3 5 AM CDT us Kvng Braga MD POINT OF CARE TESTING Edite d Performing Organization Address [facility] Phone Number INTERFACE SYSTEM Refer to clinic/hospital department * POC GLUCOSE (02/18/2007 6:10 AM CDT) GLUCOSE POC 100 60 - 100 mg/dL INTERFACE SYSTEM 02/18/2007 6:10 AM CDT us Kvng Braga MD POINT OF CARE TESTING Edite d Performing Organization Address [facility] Phone Number INTERFACE SYSTEM Refer to clinic/hospital [...] HEMATOLOGY ORDERABLES Edite d Performing Organization Address [facility] Phone Number INTERFACE SYSTEM Refer to clinic/hospital department * (ABNORMAL) BASIC METABOLIC PANEL (02/18/2007 5:50 AM CDT) Pathologist [facility] GLUCOSE 98 70 - 110 mg/dL INTERFACE [...] MD CHEMISTRY ORDERABLES Edited Performing Organization Address [facility] Phone Number INTERFACE SYSTEM Refer to clinic/hospital department * (ABNORMAL) POC GLUCOSE (02/17/2007 10:25 PM CDT) GLUCOSE POC 126(H) 60 - 100 mg/dL INTERFACE SYSTEM 02/17/2007 10:2 5 PM CDT us Kvng Braga MD POINT OF CARE TESTING Edite d Performing Organization Address [facility] Phone Number INTERFACE SYSTEM Refer to clinic/hospital department * (ABNORMAL) POC GLUCOSE (02/17/2007 4:16 PM CDT) GLUCOSE POC 108(H) 60 - 100 mg/dL INTERFACE SYSTEM 02/17/2007 4:16 PM CDT us Kvng Braga MD POINT OF CARE TESTING Edite d Performing Organization Address [facility] Phone Number INTERFACE SYSTEM Refer to clinic/hospital department * (ABNORMAL) POC GLUCOSE (02/17/2007 12:21 PM CDT) GLUCOSE POC 155(H) 60 - 100 mg/dL INTERFACE SYSTEM 02/17/2007 12:2 1 PM CDT us Kvng Braga MD POINT OF CARE TESTING Edite d Performing Organization Address [facility] Phone Number INTERFACE SYSTEM Refer to clinic/hospital department * (ABNORMAL) POC GLUCOSE (02/16/2007 9:53 PM CDT) GLUCOSE POC 167(H) 60 - 100 mg/dL INTERFACE SYSTEM 02/16/2007 9:53 PM CDT Tobi Cardona Jr., MD POINT OF CARE TESTING E dited Performing Organization Address City/[facility] de Phone Number INTERFACE SYSTEM Refer to clinic/hospital department * (ABNORMAL) POC GLUCOSE (02/16/2007 4:03 PM CDT) GLUCOSE POC 121(H) 60 - 100 mg/dL INTERFACE SYSTEM 02/16/2007 4:03 PM CDT Tobi Cardona Jr., MD POINT OF CARE TESTING E dited Performing Organization Address [facility] Phone Number INTERFACE SYSTEM Refer to clinic/hospital department * (ABNORMAL) POC GLUCOSE (02/16/2007 10:53 AM CDT) GLUCOSE POC 143(H) 60 - 100 mg/dL INTERFACE SYSTEM 02/16/2007 10:5 3 AM CDT Tobi Cardona Jr., MD POINT OF CARE TESTING E dited Performing Organization Address [facility] Phone Number INTERFACE SYSTEM Refer to clinic/hospital department * (ABNORMAL) POC GLUCOSE (02/16/2007 7:21 AM CDT) GLUCOSE POC 165(H) 60 - 100 mg/dL INTERFACE SYSTEM 02/16/2007 7:21 AM CDT Tobi Cardona Jr., MD POINT OF CARE TESTING E dited Performing Organization Address [facility] Phone Number INTERFACE SYSTEM Refer to clinic/hospital [...] MD CHEMISTRY ORDERABLES Edited Performing Organization Address [facility]/State/ZIP Co de Phone Number INTERFACE SYSTEM Refer [...] CARE TESTING E dited Performing Organization Address City/[facility]/ZIP Co de Phone Number INTERFACE SYSTEM Refer to clinic/hospital department * (ABNORMAL) POC GLUCOSE (02/15/2007 4:16 PM CDT) GLUCOSE POC 122(H) 60 - 100 mg/dL INTERFACE SYSTEM 02/15/2007 4:16 PM CDT Tobi Cardona Jr., MD POINT OF CARE TESTING E dited Performing Organization Address [facility] de Phone Number INTERFACE SYSTEM Refer to clinic/hospital department * (ABNORMAL) HEMOGLOBIN AND HEMATOCRIT (02/15/2007 1:22 PM CDT) HEMOGLOBIN 8.5(L) 14.0 - 18.0 g/dL INTERFACE SYSTEM Comment:called to or 8 at 13:27 HEMATOCRIT 25.0(L) 41.0 - 53.0 % INTERFACE SYSTEM 02/15/2007 1:22 PM CDT Kvng Braga MD HEMATOLOGY ORDERABLES Edite d Performing Organization Address [facility] de Phone Number INTERFACE SYSTEM Refer to clinic/hospital department * (ABNORMAL) POC ISTAT EG 7+ (02/15/2007 1:04 PM CDT) SPECIMEN TYPE Arterial INTERF MONA SYSTEM Comment: Test Performed By [id number] Sample not collected by [facility] Hemoglobin calculated [...] INTERF MONA SYSTEM Comment: Test Performed By [id number] Sample not collected by [facility] Hemoglobin calculated [...] TESTING COM E dited Performing Organization Address [facility] de Phone Number INTERFACE SYSTEM Refer [...] MD CHEMISTRY ORDERABLES Edited Performing Organization Address [facility] de Phone Number INTERFACE SYSTEM Refer [...] HEMATOLOGY ORDERABLES Edite d Performing Organization Address [facility] de Phone Number INTERFACE SYSTEM Refer to clinic/hospital department * POC GLUCOSE (02/15/2007 5:28 AM CDT) GLUCOSE POC 88 60 - 100 mg/dL INTERFACE SYSTEM 02/15/2007 5:28 AM CDT Result Brianna Braga MD POINT OF CARE TESTING Edite d Performing Organization Address [facility] Phone Number INTERFACE SYSTEM Refer to clinic/hospital department * POC GLUCOSE (02/14/2007 4:37 PM CDT) GLUCOSE POC 92 60 - 100 mg/dL INTERFACE SYSTEM 02/14/2007 4:37 PM CDT Result Brianna Braga MD POINT OF CARE TESTING Edite d Performing Organization Address [facility] de Phone Number INTERFACE SYSTEM Refer to clinic/hospital department * POC GLUCOSE (02/14/2007 12:34 PM CDT) GLUCOSE POC 89 60 - 100 mg/dL INTERFACE SYSTEM 02/14/2007 12:3 4 PM CDT Result Brianna Braga MD POINT OF CARE TESTING Edite d Performing Organization Address [facility] Phone Number INTERFACE SYSTEM Refer to clinic/hospital [...] MD CHEMISTRY ORDERABLES Edited Performing Organization Address [facility] Phone Number INTERFACE SYSTEM Refer to clinic/hospital [...] Goal INR 3.0; range 2.5 - 3.5 POST-[place] Goal INR 2.5; range 2.0 - 3.0 [...] HEMATOLOGY ORDERABLES Edite d Performing Organization Address City/[facility]/ZIP Co de Phone Number INTERFACE SYSTEM Refer [...] CARE TESTING Edite d Performing Organization Address [facility] Phone Number INTERFACE SYSTEM Refer to clinic/hospital department * PROTIME-INR (02/13/2007 8:38 PM CDT) Pathologist [facility] PROTIME 14.3 13.0 - 15.7 Secs INTERFACE SYSTEM Comment: As of 06 note change in normal range. INR 1.0 INTERFACE SYSTEM Comment: Expected Values for INR: DVT/PE Goal INR 2.5; range 2.0 - 3.0 Valve Replacement Tissue Goal INR 2.5; range 2.0 - 3.0 Mechanical Goal INR 3.0; range 2.5 - 3.5 POST-[place] Goal INR 2.5; range 2.0 - 3.0 or Goal 3.0; range 2.5 - 3.5 Atrial Fibrillation Goal INR 2.5; range 2.0 - 3.0 Ischemic Stroke Goal INR 2.5; range 2.0 - 3.0 For additional information see Guidelines for Anticoagulation available from the pharmacy [facility]. 02/13/2007 8:38 PM CDT us Bhanu Gay MD HEMATOLOGY ORDERABLES Edited Performing Organization Address [facility] de Phone Number INTERFACE SYSTEM Refer [...] ORDERABLES Edited Performing Organization Address City/[facility] Co de Phone Number INTERFACE SYSTEM Refer to clinic/hospital department * (ABNORMAL) ETHANOL (02/13/2007 8:38 PM CDT) ETHANOL 39(H) <=10 mg/dL INTERFACE SYSTEM ETHANOL % 0.039(H) <=0.010 % INTERFACE SYSTEM Comment: Beginning August 31, 2006, the Blood Alcohol from [facility] will be reported in % as well as mg/dl. 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
--- OUTSIDE RECORDS SUMMARY | 2025-04-19 07:07 | XMS_ITS | Encounter Summary ---
Author Organization [facility] Address [address] [place] [address] Care Team Providers Care Cover Operator Name Role Phone Jonathan Pham MD Primary Care Provider [phone] [phone] Encounter Details Date Type Department Care Team (Latest Contact Info) Description 02/13/2007 Outpatient Historical [facility] [address] [place] [address] AMBULANCE, [facility]2 [facility] Paraplegia (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 Gender Identity Not on file Sexual Orientation Not on file documented as of this encounter Plan of Treatment Not on file documented as of this encounter Visit Diagnoses Diagnosis Paraplegia- Primary documented in this encounter Additional Health Concerns Infection Onset Date Last Indicated Resolved Time R/O COVID-19 08/19/2020 08/19/2020 08/20/2020 1:44 PM INDEPENDENT LIVING INSTRUCTOR documented as of this encounter Care Teams Cover Operator Relationship Specialty Start Date End Date Jonathan Pham MD [address] [facility] [address] [place] [address] PCP - General Family Practice 03/01/18 documented as of this encounter
--- OUTSIDE RECORDS SUMMARY | 2025-04-19 07:08 | XMS_ITS | Encounter Summary ---
Author Organization [facility] Address [address] [place] [address] Care Team Providers Care Service Counselor Name Role Phone Jonathan Pham MD Primary Care Provider [phone] [phone] Encounter Details Date Type Department Care Team (Late st Contact Info) Description 03/31/2007 Outpatient [facility] [address] [place] [address] AMBULANCE, [facility] Encounter for Other Specified Aftercare (Primary Dx) Social History Tobacco Use Types Packs/Day Years Used Date Smoking Tobacco: Never Assessed Sex and Gender Information Value Date Recorded Sex Assigned at Not on file 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 Gender Identity Not on file Sexual Orientation Not on file documented as of this encounter Plan of Treatment Not on file documented as of this encounter Visit Diagnoses Diagnosis Encounter for other specified aftercare- Primary documented in this encounter Additional Health Concerns Infection Onset Date Last Indicated Resolved Time R/O COVID-19 08/19/2020 08/19/2020 08/20/2020 1:44 PM AIRCRAFT ELECTRONICS TECHNICAL OFFICER documented as of this encounter Care Teams Service Counselor Relationship Specialty Start Date End Date Jonathan Pham MD [address] [facility] [address] [place] [address] PCP - General Family Practice 03/01/18 documented as of this encounter
--- OUTSIDE RECORDS SUMMARY | 2025-04-19 07:08 | XMS_ITS | Encounter Summary ---
Author Organization [facility] Address [address] [place] [address] Care Team Providers Care Supervisor Counseling And Guidance Name Role Phone Jonathan Pham MD Primary Care Provider [phone] [phone] Encounter Details Date Type Department Care Team (Latest Contact Info) Description 03/31/2007 Outpatient Historical [facility] [address] 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 Gender Identity Not on file Sexual Orientation Not on file documented as of this encounter Plan of Treatment Not on file documented as of this encounter Visit Diagnoses Diagnosis Aftercare trauma surgery- Primary Aftercare following surgery for injury and trauma documented in this encounter Additional Health Concerns Infection Onset Date Last Indicated Resolved Time R/O COVID-19 08/19/2020 08/19/2020 08/20/2020 1:44 PM GASOLINE SERVICE ATTENDANT documented as of this encounter Care Teams Supervisor Counseling And Guidance Relationship Specialty Start Date End Date Jonathan Pham MD [address] [id number] PCP - General Family Practice 03/01/18 documented as of this encounter
--- OUTSIDE RECORDS SUMMARY | 2025-04-19 07:09 | XMS_ITS | Encounter Summary ---
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) Social History Tobacco Use Types Packs/Day Years Used Date Smoking Tobacco: Never Assessed Sex and Gender Information Value Date Recorded Sex Assigned at Not on file 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 Gender Identity Not on file Sexual Orientation [...] MD HEMATOLOGY ORDERABLES Edited Performing Organization Address [facility] Phone Number INTERFACE SYSTEM Refer to clinic/hospital department * CLOSTRIDIUM DIFFICILE TOXIN (03/21/2007 6:52 PM CDT) C DIFFICILE TOXIN Negative Negative INTERFACE SYSTEM 03/21/2007 6:52 PM CDT Result [facility] Allegra Chester MD MICROBIOLOGY - GENERAL ORDERABLE S Edited Performing Organization Address [facility] Phone Number INTERFACE SYSTEM Refer [...] MD HEMATOLOGY ORDERABLES Edited Performing Organization Address [facility] de Phone Number INTERFACE SYSTEM Refer [...] MD HEMATOLOGY ORDERABLES Edited Performing Organization Address [facility] de Phone Number INTERFACE SYSTEM Refer [...] MD CHEMISTRY ORDERABLES Edited Performing Organization Address [facility] Phone Number INTERFACE SYSTEM Refer to [...] MD CHEMISTRY ORDERABLES Edited Performing Organization Address [facility] Phone Number INTERFACE SYSTEM Refer [...] MD HEMATOLOGY ORDERABLES Edited Performing Organization Address [facility] Phone Number INTERFACE SYSTEM Refer [...] MD CHEMISTRY ORDERABLES Edited Performing Organization Address [facility] Phone Number INTERFACE SYSTEM Refer [...] MD HEMATOLOGY ORDERABLES Edited Performing Organization Address City/[facility] de Phone Number INTERFACE SYSTEM Refer [...] MD HEMATOLOGY ORDERABLES Edited Performing Organization Address [facility] de Phone Number INTERFACE SYSTEM Refer [...] R/O COVID-19 08/19/2020 08/19/2020 08/20/2020 1:44 PM AUTOMOBILE CLUB INFORMATION CLERK documented as of this encounter Care Teams Pedigree Researcher Relationship Specialty Start Date End Date Jonathan Pham MD [address] [phone] PCP - General Family Practice 03/01/18 documented as of this encounter
--- OUTSIDE RECORDS SUMMARY | 2025-04-19 07:09 | XMS_ITS | Encounter Summary ---
Author Organization [facility] Address [address] [place] [address] Care Team Providers Care Seed Buyer Name Role Phone Jonathan Pham MD Primary Care Provider [phone] [phone] Encounter Details Date Type Department Care Team (Late st Contact Info) Description 03/22/2007 Inpatient Historical HIS IN BED Marcel Madrid MD [facility] [place] [address] Other Specified Rehabilitation Procedure (Primary Dx) Social History Tobacco Use Types Packs/Day Years Used Date Smoking Tobacco: Never Assessed Sex and Gender Information Value Date Recorded Sex Assigned at Not on file 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 Gender Identity Not on file Sexual Orientation [...] Goal INR 3.0; range 2.5 - 3.5 POST-IN Goal INR 2.5; range 2.0 - 3.0 [...] OF CARE TESTING Edited Performing Organization Address [facility] Co de Phone Number INTERFACE [...] Goal INR 3.0; range 2.5 - 3.5 POST-IN Goal INR 2.5; range 2.0 - 3.0 or Goal 3.0; range 2.5 - 3.5 Atrial Fibrillation Goal INR 2.5; range 2.0 - 3.0 Ischemic Stroke Goal INR 2.5; range 2.0 - 3.0 For additional information see Guidelines for Anticoagulation available from the pharmacy Janie [facility] Pharm D. 03/24/2007 12:0 5 PM CDT us Marcel Madrid MD HEMATOLOGY ORDERABLES Edited Performing Organization Address City/State/[facility] Co de Phone Number INTERFACE [...] Goal INR 3.0; range 2.5 - 3.5 POST-IN Goal INR 2.5; range 2.0 - 3.0 or Goal 3.0; range 2.5 - 3.5 Atrial Fibrillation Goal INR 2.5; range 2.0 - 3.0 Ischemic Stroke Goal INR 2.5; range 2.0 - 3.0 For additional information see Guidelines for Anticoagulation available from the pharmacy Janie Walls Pharm Ruthy 03/23/2007 4:20 PM CDT us Marcel Madrid MD HEMATOLOGY ORDERABLES Edited Performing Organization Address City/State/[facility] Co de Phone Number INTERFACE SYSTEM Refer to clinic/hospital department documented in this encounter Visit Diagnoses Diagnosis Other specified rehabilitation procedure(V57.89)- Primary Other specified rehabilitation procedure documented in this encounter Additional Health Concerns Infection Onset Date Last Indicated Resolved Time R/O COVID-19 08/19/2020 08/19/2020 08/20/2020 1:44 PM FLOOR MECHANIC documented as of this encounter Care Teams Seed Buyer Relationship Specialty Start Date End Date Jonathan Pham MD [address] [address] PCP - General Family Practice 03/01/18 documented as of this encounter
--- OUTSIDE RECORDS SUMMARY | 2025-04-19 07:10 | XMS_ITS | Encounter Summary ---
Author Organization [facility] Address [address] [place] [address] Care Team Providers Care Hr Business Partner Name Role Phone Jonathan Pham MD Primary Care Provider [phone] [phone] Encounter Details Date Type Department Care Team (Late st Contact Info) Description 02/19/2007 Inpatient Historical HIS IN BED Marcel Madrid MD [facility] [place] [address] Other Specified Rehabilitation Procedure (Primary Dx) Social History Tobacco Use Types Packs/Day Years Used Date Smoking Tobacco: Never Assessed Sex and Gender Information Value Date Recorded Sex Assigned at Not on file Legal Sex Male 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 Gender Identity Not on file Sexual Orientation [...] INTERF MONA SYSTEM Comment: Test Performed By [id number] Pulse OX: 90 Hemoglobin calculated from Hematocrit [...] TESTING COM Edite d Performing Organization Address City/State/[facility] Co de Phone Number INTERFACE SYSTEM [...] MD HEMATOLOGY ORDERABLES Edited Performing Organization Address [facility] de Phone Number INTERFACE SYSTEM Refer [...] Goal INR 3.0; range 2.5 - 3.5 POST-AZ Goal INR 2.5; range 2.0 - 3.0 [...] CHEMISTRY ORDERABLES Edited Performing Organization Address [facility] Phone Number INTERFACE SYSTEM Refer to [...] CHEMISTRY ORDERABLES Edited Performing Organization Address [facility] Phone Number INTERFACE SYSTEM Refer to clinic/hospital department * CREATININE (03/15/2007 2:57 PM CDT) Pathologist [facility] CREATININE 0.8 0.7 - 1.5 mg/dL INTERFACE SYSTEM 03/15/2007 2:57 PM CDT us Marcel Madrid MD CHEMISTRY ORDERABLES Edited Performing Organization Address [facility] Phone Number INTERFACE SYSTEM Refer to clinic/hospital department * (ABNORMAL) URINALYSIS MICROSCOPY ONLY (03/13/2007 6:15 PM CDT) Pathologist [facility] MICRO COMMENT INTERF MONA SYSTEM Comment: wbcs in clumps WBC URINE 16-25(A) 0 - 2 INTERFACE SYSTEM RBC UA None Seen 0 - 2 INTERFACE SYSTEM HYALINE CAST None Seen 0 - 2 INTERFA CE SYSTEM BACTERIA UA Many(A) None Seen INTERFAC E SYSTEM 03/13/2007 6:15 PM CDT Marcel Madrid MD URINE ORDERABLES Edited Performing Organization Address [facility] Phone Number INTERFACE SYSTEM Refer to [...] MD URINE ORDERABLES Edited Performing Organization Address [facility] INTERFACE SYSTEM Refer to clinic/hospital [...] MD HEMATOLOGY ORDERABLES Edited Performing Organization Address City/[facility] de Phone Number INTERFACE SYSTEM Refer to clinic/hospital department * (ABNORMAL) ALBUMIN LEVEL (02/26/2007 6:10 AM CDT) Pathologist [facility] ALBUMIN 3.3(L) 3.5 - 5.0 g/dL INTERFACE SYSTEM 02/26/2007 6:10 AM CDT Marcel Madrid MD CHEMISTRY ORDERABLES Edited Performing Organization Address City/[facility] Co de Phone Number INTERFACE SYSTEM [...] CHEMISTRY ORDERABLES Edited Performing Organization Address [facility] Phone Number INTERFACE SYSTEM Refer to clinic/hospital department * (ABNORMAL) POC GLUCOSE (02/22/2007 6:51 AM CDT) GLUCOSE POC 114(H) 60 - 100 mg/dL INTERFACE SYSTEM COMMENT POC Follow Protocol INTERFACE SYSTEM 02/22/2007 6:51 AM CDT us Marcel Madrid MD POINT OF CARE TESTING Edited Performing Organization Address [facility] Phone Number INTERFACE SYSTEM Refer to clinic/hospital department * (ABNORMAL) POC GLUCOSE (02/21/2007 5:16 PM CDT) GLUCOSE POC 113(H) 60 - 100 mg/dL INTERFACE SYSTEM COMMENT POC Follow Protocol INTERFACE SYSTEM 02/21/2007 5:16 PM CDT us Marcel Madrid MD POINT OF CARE TESTING Edited Performing Organization Address [facility] Phone Number INTERFACE SYSTEM Refer to clinic/hospital department * (ABNORMAL) POC GLUCOSE (02/21/2007 6:44 AM CDT) GLUCOSE POC 109(H) 60 - 100 mg/dL INTERFACE SYSTEM COMMENT POC Follow Protocol INTERFACE SYSTEM 02/21/2007 6:44 AM CDT us Marcel Madrid MD POINT OF CARE TESTING Edited Performing Organization Address [facility] de Phone Number INTERFACE SYSTEM Refer to clinic/hospital department * (ABNORMAL) POC GLUCOSE (02/20/2007 9:20 PM CDT) GLUCOSE POC 149(H) 60 - 100 mg/dL INTERFACE SYSTEM 02/20/2007 9:20 PM CDT us Marcel Madrid MD POINT OF CARE TESTING Edited Performing Organization Address [facility] Phone Number INTERFACE SYSTEM Refer to clinic/hospital department * (ABNORMAL) POC GLUCOSE (02/20/2007 4:32 PM CDT) GLUCOSE POC 163(H) 60 - 100 mg/dL INTERFACE SYSTEM 02/20/2007 4:32 PM CDT us Marcel Madrid MD POINT OF CARE TESTING Edited Performing Organization Address [facility] Phone Number INTERFACE SYSTEM Refer to clinic/hospital [...] MD URINE ORDERABLES Edited Performing Organization Address [facility] de Phone Number INTERFACE SYSTEM Refer [...] MD URINE ORDERABLES Edited Performing Organization Address City/[facility] Co de Phone Number INTERFACE SYSTEM Refer to clinic/hospital department * (ABNORMAL) POC GLUCOSE (02/20/2007 11:42 AM CDT) GLUCOSE POC 132(H) 60 - 100 mg/dL INTERFACE SYSTEM COMMENT POC Follow Protocol INTERFACE SYSTEM 02/20/2007 11:4 2 AM CDT Marcel Madrid MD POINT OF CARE TESTING Edited Performing Organization Address [facility] de Phone Number INTERFACE SYSTEM Refer to clinic/hospital department * (ABNORMAL) POC GLUCOSE (02/20/2007 7:05 AM CDT) GLUCOSE POC 113(H) 60 - 100 mg/dL INTERFACE SYSTEM 02/20/2007 7:05 AM CDT us Marcel Madrid MD POINT OF CARE TESTING Edited Performing Organization Address [facility] de Phone Number INTERFACE SYSTEM Refer [...] MD HEMATOLOGY ORDERABLES Edited Performing Organization Address [facility] Phone Number INTERFACE SYSTEM Refer to clinic/hospital department * (ABNORMAL) POC GLUCOSE (02/19/2007 9:04 PM CDT) GLUCOSE POC 159(H) 60 - 100 mg/dL INTERFACE SYSTEM 02/19/2007 9:04 PM CDT us Marcel Madrid MD POINT OF CARE TESTING Edited Performing Organization Address [facility] Phone Number INTERFACE SYSTEM Refer to clinic/hospital department * (ABNORMAL) POC GLUCOSE (02/19/2007 6:44 PM CDT) GLUCOSE POC 195(H) 60 - 100 mg/dL INTERFACE SYSTEM 02/19/2007 6:44 PM CDT us Marcel Madrid MD POINT OF CARE TESTING Edited Performing Organization Address [facility] Phone Number INTERFACE SYSTEM Refer to [...] Jagdeep Virgen M.D. Date Signed: 02/21/07 [facility] Provider DIAGNOSTIC IMAGING ORDERABLE S Final Result documented in this encounter Visit Diagnoses Diagnosis Other specified rehabilitation procedure(V57.89)- Primary Other specified rehabilitation procedure documented in this encounter Additional Health Concerns Infection Onset Date Last Indicated Resolved Time R/O COVID-19 08/19/2020 08/19/2020 08/20/2020 1:44 PM PAWN BROKER documented as of this encounter Care Teams Hr Business Partner Relationship Specialty Start Date End Date Jonathan Pham MD [address] [address] PCP - General Family Practice 03/01/18 documented as of this encounter
[2025-04-19 07:12] LABS: PCP Screen Urine Negative (Negative)
[2025-04-19 07:19] LABS: Glucose Urine UA Negative (Normal); Nitrate Urine Negative (Negative); Specific Gravity, Urine 1.022 (1.005-1.030)
--- NOTE | 2025-04-19 07:35 | ECG_ITS ---
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 Measurements Intervals [place] Rate: 60 P: 55 SC: 196 QRS: 62 QRSD: 82 T: 18 QT: 406 QTc: 407 Interpretive Statements SINUS RHYTHM LOW QRS VOLTAGE IN PRECORDIAL LEADS [QRS DEFLECTION < 1.0 mV IN CHEST LEADS] SEPTAL MYOCARDIAL INFARCTION , OF INDETERMINATE AGE [40+ ms Q WAVE IN V1/V2] Non Specific ST changes INTERPRETATION BASED ON A DEFAULT AGE OF 40 YEARS Compared to ECG 04/19/2025 04:28:58 Low QRS voltage now present Myocardial infarct finding now present Electronically Signed On 04-19-2025 18:52:33 CDT by Tylor Torrez M.D. [email or web address]
--- NOTE | 2025-04-19 07:36 | XR_ITS ---
WS: [id number] XR chest 1V portable [id number] REASON FOR EXAM: CENTRAL LINE FINDINGS: Compared to the examination of 6:22 a.m. 04/19/2025, a right internal jugular central venous line has been placed the tip is at the atrial level. Endotracheal tube position unchanged compared to the previous examination. No other interval change compared to the previous examination. XR/XR chest 1V portable [id number] IMPRESSION: Right IJ central line placement as above.
[2025-04-19 07:39] LABS: UA Manual Slide Review YES
[2025-04-19 07:40] LABS: Add Urine Microscopic? YES
[2025-04-19 08:18] LABS: Lactic Acid level (Lactate) 2.7 mmol/L (0.5-2.2)
[2025-04-19] MEDS: heparin 5,000 unit/mL INJ 1 mL 5000 UNIT SUBCUT ×2 (08:45→16:46)
--- NOTE | 2025-04-19 09:29 | PC.NURSE ---
Patient arrived to ICU 8 from ER, intubated and sedated, assessment revealed extensive sacral and gluteal wounds. Dressings in place were heavily soiled and worn, dressings removed. Dr. Ayala aware. Medications administered per SEP. Temperature 96.8, blanket warmer applied. Dr. Ayala verbal to not give D5 500ml order from Dr. Barone.
--- NOTE | 2025-04-19 09:40 | XR_ITS ---
WS: [id number] XR chest 1V portable [id number] REASON FOR EXAM: OG tube placement FINDINGS: There there are great deal of overlying tubes and wires and other medical devices. There is posterior fusion of the thoracic spine with pedicle screws and interconnecting rods, T1-T9. There is a nasogastric tube in place. NG tube was present on the 7:38 a.m. 04/19/2025 examination for central line placement but not reported. The tip is not visualized on this examination but is at least within the fundus and possibly the body of the stomach. The chest is otherwise unchanged compared to the previous examination. XR/XR chest 1V portable [id number] IMPRESSION: Nasogastric tube position as above. Chest is stable compared to the previous ex amination of 7:38 a.m. 04/19/2025
--- NOTE | 2025-04-19 10:23 | ECG_ITS ---
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 Measurements Intervals [place] Rate: 107 P: -14 OR: 197 QRS: 52 QRSD: 84 T: 1 QT: 335 QTc: 447 Interpretive Statements SINUS TACHYCARDIA LOW QRS VOLTAGE IN PRECORDIAL LEADS [QRS DEFLECTION < 1.0 mV IN CHEST LEADS] ABNORMAL RHYTHM ECG Poor R wave progression Compared to ECG 04/19/2025 07:35:10 Sinus rhythm no longer present Myocardial infarct finding no longer present Electronically Signed On 04-19-2025 18:49:49 CDT by Tylor Torrez M.D. [email or web address]
--- NOTE | 2025-04-19 10:54 | PC.NURSE ---
No mike drip per Dr. Ayala.
--- NOTE | 2025-04-19 11:12 | PC.NURSE ---
Wounds cleaned with sterile water and wet to dry dressing placed until further orders obtained.
[2025-04-19 11:19] LABS: ABG PCO2 39.0 mmHg (35-45); ABG PH Result 7.28 (7.35-7.45); Alveolar-Arterial Oxygen Gradi 20.0 mmHg (5-10); Arterial Blood Gas Hematocrit 47.6 % (42-52); Blood Gas Allen Test Pos; Blood Gas Operator Identificat CAK; Blood Gas Sample Site Radial, left; Blood Gas Sample Type Arterial; Blood Gas Tidal Volume 0.45; Carboxyhemoglobin < 0.3 %THgb (0.4-20.1); Glucose Level-ABG 187.0 mg/dL (70-115); HCO3 ABG 18.3 mmol/L (22-26); Ionized Calcium Level - ABG 1.1 mmol/L (1.1-1.4); Methemoglobin 1.1 % (0.4-1.5); Oxygen Saturation ABG 93.5; PEEP 8.0 cmH20; PO2 ABG 84.0 mmHg (80.0-100.0); PO2 FiO2 Ratio Arterial Blood 210; Potassium Level - ABG 4.9 mmol/L (3.5-5.0); Sodium Level - ABG 142.0 mmol/L (131-143)
[2025-04-19] MEDS: norepinephrine 4 MG/250 ML BAG 45 MG IV (11:50)
--- NOTE | 2025-04-19 12:12 | P.MISC_ITS ---
Miscellaneous Note Purpose of Documentation: Sudden decompensation on a very sick patient admitted and yeah today by Dr. SCHNEIDER Follow-up ED attending noted patient was unresponsive and immediately intubated the patient because patient was almost doing agonal respiration started the central line on the patient pressors were started because patient was profoundly hypotensive in the 80s IV fluid given Dr. Benitez called and related to me concerning this patient patient was sent to ICU. I follow through seeing this p atient this morning in ICU. Note: Patient seen and evaluated patient has end-stage 4 tunneling decubitus sacral ulcer, septic hypothymiC already intubated I started patient on meropenem and vancomycin immediately patient is on pressor and also sedation with fentanyl and Versed. The patient is bilateral amputee [id number] I called surgical consult for sacral decub with Dr. Ho who will be seeing the patient. Wound care consult also on the case.. Patient is stabilized now hemodynamically intubated with pressors. Patient is critically ill but stable
[2025-04-19] MEDS: meropenem 1,000 mg SDV 1000 MG IVP (12:33)
--- NOTE | 2025-04-19 12:37 | PC.NURSE ---
Belongings including a black watch, jeans, and photo ID home with .
--- OUTSIDE RECORDS SUMMARY | 2025-04-19 13:30 | XMS_ITS | Encounter Summary ---
Author Organization [facility] Address [address] [place] [address] Care Team Providers Care Cabin Man Name Role Phone Jonathan Pham MD Primary Care Provider [phone] [phone] Reason for Visit * Outpatient Services (Routine) - Authorized Specialty Diagnoses / Procedures Referred By Contac t Referred To Contact Multi Specialty Diagnoses Neurogenic bladder Recurrent UTI Procedures INFUSION THERAPY Ron Hallman NP [facility] [address] [address] Phone: tel: fax: [facility] [place] [address] [address] Phone: tel: fax: Referral ID Status Reason Start Date Expiration Date Visits Requested Visits Authorized [id number] Authorized Performing Department to Schedule 09/20/2024 10/21/2025 12 12 Encounter Details Date Type Department Care Team (Late st Contact Info) Description 04/19/2025 1:30 PM CDT Hospital Encounter [facility] [place] [address] [facility] [address] [place] [address] Social History Tobacco Use Types Packs/Day Years [...] week 09/10/2020 How often do you attend taoism or advent serv ices? 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 Gender Identity Not on file Sexual Orientation Not on file documented as of this encounter Plan of Treatment Upcoming Encounters Date Type Department Care Team (Late st Contact Info) Description 05/07/2025 2:00 PM CDT Office Visit [facility] Medicine [place] [address] [phone] Jonathan Pham MD [address] [phone] documented as of this encounter Visit Diagnoses Not on filedocumented in this encounter Care Teams Cabin Man Relationship Specialty Start Date End Date Jonathan Pham MD [address] [phone] PCP - General Family Practice 03/01/18 documented as of this encounter
--- OUTSIDE RECORDS SUMMARY | 2025-04-19 13:30 | XMS_ITS | Encounter Summary ---
Author Organization [facility] Address [address] [place] [address] Care Team Providers Care Tariff Publishing Agent Name Role Phone Jonathan Pham MD Primary Care Provider [phone] [phone] Reason for Visit * Outpatient Services (Routine) - Authorized Specialty Diagnoses / Procedures Referred By Contac t Referred To Contact Multi Specialty Diagnoses Neurogenic bladder Recurrent UTI Procedures INFUSION THERAPY Ron Hallman NP [facility] [address] [address] Phone: tel: fax: [facility] [place] [address] [address] Phone: tel: fax: Referral ID Status Reason Start Date Expiration Date Visits Requested Visits Authorized [id number] Authorized Performing Department to Schedule 09/20/2024 10/21/2025 12 12 Encounter Details Date Type Department Care Team (Late st Contact Info) Description 04/19/2025 1:30 PM CDT Hospital Encounter [facility] [place] [address] [facility] [address] [place] [address] Social History Tobacco Use Types [...] week 09/10/2020 How often do you attend cheondoism or worship serv ices? 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 Gender Identity Not on file Sexual Orientation Not on file documented as of this encounter Plan of Treatment Upcoming Encounters Date Type Department Care Team (Late st Contact Info) Description 05/07/2025 2:00 PM CDT Office Visit [facility] Medicine [place] [address] [phone] Jonathan Pham MD [address] [phone] documented as of this encounter Visit Diagnoses Not on filedocumented in this encounter Care Teams Tariff Publishing Agent Relationship Specialty Start Date End Date Jonathan Pham MD [address] [phone] PCP - General Family Practice 03/01/18 documented as of this encounter
--- NOTE | 2025-04-19 14:17 | PC.NURSE ---
Warming blanket removed. Temp 99.0 temporal.
[2025-04-19 14:33] LABS: Lactate (Lactic Acid level) 1.6 mmol/L (0.5-2.2)
[2025-04-19] MEDS: norepinephrine 4 MG/250 ML BAG 60 MG IV ×2 (16:27→20:36)
--- NOTE | 2025-04-19 17:29 | PHA.VACGOAL ---
Vancomycin Goal - Goal Vancomycin Indication:: Other - Therapy Day of therpy:: Day []of [] . Actual body weight (kg): 139 lb - Data Labs: WBC 7.32 10^3/uL (3.29-11.43) 04/19/25 04:30 RBC 5.81 10^6/uL (3.85-5.65) H 04/19/25 04:30 Hgb 13.70 g/dL (11.27-16.99) 04/19/25 04:30 Hct 48.1 % (37-53) 04/19/25 04:30 MCV 82.8 fl (82-101) 04/19/25 04:30 MCH 23.6 pg (27-33) L 04/19/25 04:30 MCHC 28.5 g/dL (30-55) L 04/19/25 04:30 RDW 19.1 % (12.1-15.1) H 04/19/25 04:30 Sodium 141 mmol/L (136-145) 04/19/25 04:30 Potassium 5.3 mmol/L (3.5-5.1) H 04/19/25 04:30 Chloride 99 mmol/L (98-107) 04/19/25 04:30 Carbon Dioxide 23 mmol/L (22-29) 04/19/25 04:30 Anion Gap 24.3 (5-19) H 04/19/25 04:30 BUN 49 mg/dL (8-23) H 04/19/25 04:30 Creatinine 3.7 mg/dL (0.7-1.2) H 04/19/25 04:30 GFR Calculation 16.6 mL/min (90-130) L 04/19/25 04:30 Treatment plan:: new consult Regimen:: PULSE DOSE 750 MG NOW TROUGH 04/20 1630
[2025-04-19] MEDS: fentaNYL 1,000 MCG/100 ML BAG 7.5 MCG IV (18:44)
[2025-04-20] VITALS (109 sets, daily range): BP systolic 61–159; BP diastolic 38–101; PULSE 66–86; RESP 14; TEMP 37.1–38.4; O2SAT 92–99
[2025-04-20] MEDS: norepinephrine 4 MG/250 ML BAG 67.5 MG IV (00:36)
[2025-04-20] MEDS: norepinephrine 4 MG/250 ML BAG 75 MG IV (03:52)
[2025-04-20] MEDS: fentaNYL 1,000 MCG/100 ML BAG 10 MCG IV (03:57)
[2025-04-20 04:00] LABS: Hematocrit 41.8 % (37-53); Hemoglobin 12.00 g/dL (11.27-16.99); Mean Corpuscular HGB Conc 28.7 g/dL (30-55); Mean Corpuscular Hemoglobin 23.6 pg (27-33); Mean Corpuscular Volume 82.1 fl (82-101); Nucleated Red Blood Cells % 0 %; Platelet Count 211 10^3/cmm (157-399); Red Blood Count 5.09 10^6/uL (3.85-5.65); White Blood Count 10.21 10^3/uL (3.29-11.43)
[2025-04-20 04:05] LABS: ABG PCO2 34.7 mmHg (35-45); ABG PH Result 7.27 (7.35-7.45); Alveolar-Arterial Oxygen Gradi 12.3 mmHg (5-10); Arterial Blood Gas Hematocrit 39.8 % (42-52); Blood Gas Allen Test Pos; Blood Gas Operator Identificat JDB; Blood Gas Sample Site Radial, right; Blood Gas Sample Type Arterial; Blood Gas Tidal Volume 0.45; Carboxyhemoglobin 0.4 %THgb (0.4-20.1); Glucose Level-ABG 172.0 mg/dL (70-115); HCO3 ABG 16.1 mmol/L (22-26); Ionized Calcium Level - ABG 1.1 mmol/L (1.1-1.4); Methemoglobin 1.2 % (0.4-1.5); Oxygen Saturation ABG 93.2; PEEP 8.0 cmH20; PO2 ABG 76.5 mmHg (80.0-100.0); PO2 FiO2 Ratio Arterial Blood 255; Potassium Level - ABG 4.6 mmol/L (3.5-5.0); Sodium Level - ABG 143.0 mmol/L (131-143)
[2025-04-20 04:27] LABS: Alanine Aminotransferase 7 U/L (0-41); Albumin Level 3.0 g/dL (3.5-5.2); Alkaline Phosphatase 60 U/L (40-130); Anion Gap 28.1 (5-19); Aspartate Amino Transferase 14 U/L (0-40); Blood Urea Nitrogen 47 mg/dL (8-23); Calcium 7.6 mg/dL (8.5-10.5); Carbon Dioxide 16 mmol/L (22-29); Chloride 105 mmol/L (98-107); Creatinine Clr Calc Pharmacy 21.1858; Globulin 3.1 g/dL (1.3-4.6); Glucose 188 mg/dL (65-115); Osmolality Calculated 315 mOsm/kg (285-295); Potassium 5.1 mmol/L (3.5-5.1); Sodium 144 mmol/L (136-145); Total Protein 6.1 g/dL (6.6-8.7)
[2025-04-20] MEDS: pantoprazole 40 mg SDV IVP (05:21)
[2025-04-20] MEDS: sodium bicarbonate 8.4% syr 100 MEQ in dextrose 5% 250 ML 700 MEQ IV (05:21)
[2025-04-20] MEDS: heparin 5,000 unit/mL INJ 1 mL 5000 UNIT SUBCUT ×2 (05:21→16:44)
[2025-04-20] MEDS: chlorhexidine gluconate 4% Btl 118 mL 1 APPLIC TOPICAL ×2 (05:22→23:32)
[2025-04-20 05:38] LABS: Lactate (Lactic Acid level) 1.2 mmol/L (0.5-2.2)
--- NOTE | 2025-04-20 06:16 | P.EN_ITS ---
Event Note Event Note: worsening acidemia and high dose of NE, given 2 litres of LR, and another ordered, fluid responsive, NE came down from 18 to 14 mcg with MAP >65mmhg. FIo2 is at 30% hco3: 16, changed bicarb 50 to 100meq infusion monitor blood gas in the morning Event Notes Attestations Time Spent in Patient Care: 16 - 35 minutes (>than 50% of time sp ent in counselling and/or direct pt care on unit) .
[2025-04-20] MEDS: norepinephrine 4 MG/250 ML BAG 45 MG IV (08:48)
--- NOTE | 2025-04-20 11:45 | PC.SOCIAL ---
IMM Update pg 2 of IMM not updated as patient is intubated and not expected to DC in the next 48-72 hours. Copy left @ bedside and copy dated, initialed and placed in chart.
--- NOTE | 2025-04-20 12:30 | P.PN_ITS ---
Subjective 2 Subjective: remains intubated, sedated , febrile to 101F Medications: Reviewed: Yes Vitals/I&O/Wt Last Vital Signs Temp 99.3 F 04/20/25 13:00 Pulse 74 04/20/25 18:45 Resp 14 04/20/25 18:24 BP 136/67 04/20/25 18:45 Pulse Ox 97 04/20/25 18:45 O2 Del Method Mechanical Ventilation 04/20/25 13:12 O2 Flow Rate 3 04/19/25 04:44 FiO2 30 04/20/25 18:24 04/20/25 04/20/25 04/20/25 06:59 14:59 22:59 Intake Total 3135.958 / 6366.758 1313.450 / 1313.450 121.625 / 1435.075 Output Total 450 / 450 Balance 2685.958 / 5916.758 1313.450 / 1313.450 121.625 / 1435.075 Weight last 48 hrs Weight 72.5 kg Weight 72.5 kg Weight 63.049 kg Weight 63.191 kg Physical Exam 2 Narrative: General: intubated, sedated HEENT: PERRLA, pupils bilaterally equal and reactive, pallors not present Chest: Normal vesicular breath sounds, no added sounds, equal good air entry bilaterally CVS: S1-S2 regular, no murmurs, no tachycardia, no gallops, no rubs Abdomen: Soft, nontender, no organomegaly, bowel sounds present Neuro: unable to assess, intubated, sedated Extremities: stage 4 decub ulcer Urinary Catheter Management: Suprapubic: Cath Placed During This Visit: yes Reason for Continuing Indwelling Catheter: Accurate Measurement of Urinary Output in Critically Ill Patients Urinary Catheter Date of Insertion: 04/19/25 Urinary Catheter Time of Insertion: 04:38 Data 04/20/25 03:38 04/20/25 03:38 Micro: Microbiology 04/19/25 10:09 Gram Stain - Final Buttock Wound Culture - Preliminary 04/19/25 08:45 Gram Stain - Final Sputum - Endotracheal Tube Aspirate Sputum Culture - Preliminary 04/19/25 06:35 Urine Culture - Final Urine Suprapubic 04/19/25 05:05 Blood Culture - Preliminary Blood NEGATIVE TO DATE 04/19/25 04:50 Blood Culture - Preliminary Blood NEGATIVE TO DATE A&P Assessment and plan 1. Dehydration: Patient seems dehydrated on clinical examination UTOX Ringer lactate at 125 mL/h and later on to assess accordingly for clinical improvement Monitor renal parameters and electrolytes 2. GUY (acute kidney injury): CPK mildly high UTOX to follow Ringer lactate to continue at 125 mL/h Adequate intake output monitoring Monitor renal functions Avoid any nephrotoxic drugs 3. Hyperkalemia: Since the patient is mild sleepy Lokelma could not be given Dextrose water 5% 500 mL bolus stat Continue adequate hydration And follow electrolytes specially potassium 4. Acute metabolic encephalopathy: Patient is alert could be element of dehydration versus intoxication Patient is alert with mild skin pinching and interacts with saying what happened what happened I do not know. Patient is a poor historian therefore adequate history cannot be obtained No leukocytosis or infectious source to be obtained yet Follow UA and urine culture Blood cultures Repeat lactate after adequate hydration 5. Paraplegia: OT PT referral 6. Diabetes mellitus: Insulin sliding scale and monitor blood glucose 7. Neurogenic bladder: Suprapubic catheter care Follow UA and urine cultures Plan: 04/20/25: chart reveiwed. 64M with paraplegia, large decubitus ulcer at least since 2017, known chronic osteomyelitis of the sacrum followed by wound care closely , s/p diverting colostomy and SPC in place which is changed every month. Admitted with sepsis, fever, shock currently on pressors. Labs notable for GUY. no abdominal imaging perfromed thus far. Ordered for CT ABdomen/pelvis as source suspected to be urinary. His reports a recently blocked SPC and she has used a coat optical engineering technician and tap water to clean in the past as intructed reportedly by previous physicians. She reports pyuria at home recently. Abd/pelvis to evaluate for obstructive urinary process. chronic osteomyelitis unlikley to be source with otherwise stable wound per review of [facility] notes. Awaiting genreal surgery asseement. Ct abd/pelvis to additionally assess for any underlying abscess/interval change with osteomyelitis. Off Versed today but does not awaken. Ct head reveiwed normal from admission. Sudden decompensation reported in ED. Check EKG and trop series. Check D dimer screen to screen for PE. all updates discussed with daughter at bedside and over the phone PDMP PDMP Reviewed: Not Reviewed Attestations 2 Medical Necessity Statement*: intubated, sedated, on pressor support Critical Care Time: The high probability of a clinically significant, sudden or life threatening deterioration of the patient's [resp,cardiac,ID,renal] system(s) required my full and direct attention, intervention and personal management. The critical care time is as shown. This time is in addition to time spent performing any reported procedures but includes the following: [x] Data and vital sign review and interpretation [x] Patient assessment, examination and intervention [x] Documentation [x] Medication orders and management Critical Care Time (min): 60 Coding Level of Care Code Acute Code for Chg Fwd Diagnoses Dehydration E86.0 GUY (acute kidney injury) N17.9 Hyperkalemia E87.5 Acute metabolic encephalopathy G93.41 Paraplegia G82.20 Diabetes mellitus E11.9 Neurogenic bladder N31.9
--- NOTE | 2025-04-20 13:10 | CT_ITS ---
WS: [id number] CT CHEST, ABDOMEN AND PELVIS NONCONTRAST HISTORY: sepsis source eval TECHNIQUE: Contiguous 5 mm axial imaging performed through the chest, abdomen and pelvis without IV contrast, oral contrast has Been provided. Coronal and sagittal reformats chest. Coronal and sagittal reformats through the abdomen and pelvis. All CT scans at [facility] use at least one of these dose optimization techniques: automated exposure control; mA and/or kV adjustment per patient size (includes targeted exams where dose is matched to clinical indication); or iterative reconstruction. CONTRAST: None DLP: 992.49 mGy.cm COMPARISON: 01/10/[address]: Endotracheal tube is in place. The tip terminates at the bifurcation. Consider retraction 1 to 2 cm for more optimal positioning. Nasogastric tube is present with tip extending into the stomach. RIGHT sided central line is noted. Lung volumes are slightly decreased. Mild volume loss and consolidations at the lung bases. Most likely atelectasis. No pneumothorax. Normal size pulmonary artery and aorta. No adenopathy. Bilateral gynecomastia. Abdomen CT: Significant artifact through the abdomen due to patient's arms being placed at the site and overlying external monitoring devices. Liver and spleen are normal size. Gallbladder is normally distended with no adjacent inflammation. There is cholelithiasis. Common bile duct is not dilated. Mild pancreatic atrophy. No adrenal mass. Mild perinephric stranding surrounding each kidney. There is mild stranding of the central fat in the RIGHT kidney. The ureter is not dilated. Stomach is not distended. No colitis identified. There is mild diverticular disease. LEFT lower quadrant colostomy site. No obstruction. No ascites or adenopathy. Pelvic CT: Nondistended urinary bladder. There is a suprapubic catheter in place. There is air within the bladder which may be from manipulation of the catheter. There is stranding around the urinary bladder. Bilateral decubitus ulcers are noted extending to the ischial tuberosities. There is mild soft tissue thickening along the tracts extending to the tuberosities. There is similar to the prior studies. Mild presacral soft tissue thickening presacral soft tissue thickening at the sacrum has progressed since 01/10/2025 and underlying infection should be considered. Absent distal coccygeal segments from prior osteomyelitis. No new area of cortical destruction noted by CT. CT/[place] [id number] IMPRESSION: 1. Subsegmental atelectasis at the lung bases. 2. Cholelithiasis without evidence for acute cholecystitis. 3. Recommend retracting endotracheal tube by 1 to 2 cm for more optimal positi oning. Endotracheal tube now terminates at the eduardo. 4. Perinephric stranding around each kidney, greater on the RIGHT. Correlate f or pyelonephritis. 5. Suprapubic catheter within nondistended urinary bladder. There is air in th e urinary bladder and stranding around the bladder. Suspect cystitis. 6. Bilateral decubitus ulcer tracts. These are very similar to the prior study . 7. Progressive presacral soft tissue thickening since 01/10/2025. Osteomyelitis and cellulitis with osteomyelitis involving the distal sacrum should be consid ered.
--- NOTE | 2025-04-20 13:10 | ECG_ITS ---
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 Measurements Intervals [place] Rate: 73 P: -34 ND: 175 QRS: 19 QRSD: 64 T: -11 QT: 342 QTc: 378 Interpretive Statements SINUS RHYTHM LOW QRS VOLTAGE IN PRECORDIAL LEADS [QRS DEFLECTION < 1.0 mV IN CHEST LEADS] Compared to ECG 04/19/2025 10:23:08 Sinus tachycardia no longer present Poor R-wave progression no longer present Electronically Signed On 04-21-2025 14:35:04 CDT by Tylor Torrez M.D. [id number] [id number]
--- NOTE | 2025-04-20 13:56 | PM.CONSULT ---
Providers/Reason For Consult Consulting Physician/Specialty*: rob duncan MD general surgery Reason for Consult*: evaluate long standing decubitus ulcers Requesting Physician: myesha garcia MD hospitalist Attending Physician: Chapis Jack MD Primary Care Provider: Jonathan Pham History of Present Illness History of Present Illness Israel Mullen is a 64 year old male with long standing decubitus ulcers seen in wound clinic as outpatient with hydrofera blue foam and santyl cream. He is admitted with acute sepsis presumably from urosepsis. There is questiona about need for dressing changes in ICU. Review of Systems Narrative: Patient is intubated and can't get this Medications/Allergies Home Medications ?Medication ?Instructions ?Recorded ?Confirmed ?Last Taken ?Type gabapentin 800 mg tablet 800 mg PO TID 01/10/25 04/19/25 01/09/25 History glimepiride 1 mg tablet 1 mg PO QAM 01/10/25 04/19/25 01/09/25 History lisinopril 5 mg tablet 5 mg PO DAILY 01/10/25 04/19/25 01/09/25 History metformin 1,000 mg tablet 1,000 mg PO BID 01/10/25 04/19/25 01/09/25 History baclofen 20 mg tablet 40 mg PO TID 04/19/25 04/19/25 Unknown History Allergies Allergy/AdvReac Type Severity Reaction Status Date / Time Penicillins Allergy Unknown Unknown Verified 04/19/25 04:31 Current Medications Generic Name Dose Route Start Last Admin Trade Name Freq PRN Reason Stop Dose Admin Acetaminophen 650 mg 04/19/25 05:30 04/20/25 00:08 Acetaminophen 325 Mg Tablet PO 650 mg Q6H PRN Administration Mild/Mod Pain Or Temp >/= 101 Albuterol/Ipratropium 3 ml 04/19/25 14:00 04/20/25 13:08 Ipratropium-Albuterol 3 Ml Neb INHALATION 3 ml Q6H.RESP CLARY Administration Chlorhexidine Gluconate 1 applic 04/20/25 04:38 04/20/25 05:22 Chlorhexidine Gluconate 4% Btl 118 Ml TOPICAL 1 applic DAILY PRN Administration Bed Bath Collagenase 1 applic 04/20/25 12:00 04/20/25 12:32 Collagenase Oint 30 Gm TOPICAL 1 applic Q12H CLARY Administration Heparin Sodium (Porcine) 5,000 unit 04/19/25 05:30 04/20/25 05:21 Heparin 5,000 Unit/Ml Inj 1 Ml SUBCUT 5,000 unit Q12H CLARY Administration Midazolam HCl 100 mg in 100 mls @ 0 mls/hr 04/19/25 06:30 04/20/25 10:02 Versed IV 0 mg/hr .Q0M CLARY 0 mls/hr Protocol Titration Per Protocol Fentanyl 1,000 mcg in 100 mls @ 0 mls/hr 04/19/25 06:30 04/20/25 09:08 Sublimaze IV Infused .Q0M CLARY Titration Protocol Per Protocol Norepinephrine Bitartrate 4 mg in 250 mls @ 0 mls/hr 04/19/25 07:00 04/20/25 12:05 Levophed IV Infused .Q0M CLARY Titration Protocol Per Protocol Insulin Human Lispro 0 unit 04/19/25 08:00 04/20/25 12:28 Insulin Lispro 100 Unit/1 Ml SUBCUT 4 unit TIDWM CLARY Administration Protocol Meropenem 500 mg 04/20/25 00:30 04/20/25 12:30 Meropenem 500 Mg Sdv IVP 500 mg Q12H CLARY Administration Protocol Pantoprazole Sodium 40 mg 04/20/25 05:00 04/20/25 05:21 Pantoprazole 40 Mg Sdv IVP 40 mg DAILY CLARY Administration PFSH Acute PFSH: Medical History (Updated 04/19/25 @ 08:13 by Mack Benitez DO) Diabetes mellitus Urinary incontinence Osteomyelitis Right ureteral calculus Obstructive pyelonephritis Neurogenic bladder Paraplegia Surgical History History of back surgery H/O colostomy Family History Mother , at age 54 Cancer melanoma Father , at age 68 Cancer brain tumor Denies family history of Anesthesia complication Bleeding disorder Social History Alcohol intake: current Alcohol intake frequency: holidays/special occasions only Substance/Drug Use: never Additional social history: Patient wants full code as discussed today with him and his Faiza on 01/09/2025 by Chuy Gallo MD Adopted: No Caregiver/support person: No Lives independently: No Household members: spouse Marital status: Current occupational status: disabled 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 Vitals/I&O/Wt Last Vital Signs Temp 100.7 F H 04/20/25 06:00 Pulse 72 04/20/25 13:12 Resp 14 04/20/25 13:12 BP 110/61 04/20/25 12:00 Pulse Ox 96 04/20/25 13:12 O2 Del Method Mechanical Ventilation 04/20/25 13:12 O2 Flow Rate 3 04/19/25 04:44 FiO2 30 04/20/25 13:12 04/19/25 04/20/25 04/20/25 22:59 06:59 14:59 Intake Total 1532.458 / 3230.800 3135.958 / 6366.758 1291.950 / 1291.950 Output Total 450 / 450 150 / 150 Balance 1532.458 / 3230.800 2685.958 / 5916.758 1141.950 / 1141.950 Weight last 48 hrs Weight 159 lb 13.362 oz Weight 159 lb 13.362 oz Weight 139 lb Weight 139 lb 5 oz Physical Exam Narrative: VSS patient is sedated on ventilator Heart: RRR Lungs: clear Abdomen: nondistended Multible decubitus ulcers with some healed and la Urinary Catheter Management: Suprapubic: Cath Placed During This Visit: yes Reason for Continuing Indwelling Catheter: Chronic Indwelling Urinary Catheter on Admission Urinary Catheter Date of Insertion: 04/19/25 Urinary Catheter Time of Insertion: 04:38 Data 04/20/25 03:38 04/20/25 03:38 Micro: Microbiology 04/19/25 10:09 Gram Stain - Final Buttock Wound Culture - Preliminary 04/19/25 08:45 Gram Stain - Final Sputum - Endotracheal Tube Aspirate Sputum Culture - Preliminary 04/19/25 06:35 Urine Culture - Final Urine Suprapubic 04/19/25 05:05 Blood Culture - Preliminary Blood NEGATIVE TO DATE 04/19/25 04:50 Blood Culture - Preliminary Blood NEGATIVE TO DATE A&P Assessment and plan 1. Pressure injury of deep tissue of sacral region: Patient with long standing ulcers that are stable and treated as outpatient wound clinic. They do not have clinical appearance of acute infection. There is no swelling, redness, warmth or purulent drainage. Would continue with therapy to larger ulcer near scrotal base near perineum with blue hydrofera antimicrobial foam and santyl daily. Wash ulcer with hibiclens at least daily before applying new santyl. If there is any concern on active deep infection can get CT scan of ulcer areas. PDMP PDMP Reviewed: Not Reviewed Coding Level of Care Code 58219 Diagnoses Pressure injury of deep tissue of sacral region L89.156
[2025-04-20 14:59] LABS: Troponin(5th) Baseline 152 ng/L (0-15)
--- NOTE | 2025-04-20 15:18 | ECG_ITS ---
[facility] Test Date: 2025-04-20 Pat Name: Israel Mullen Department: Room: [facility]08 Gender: Male [employer]: : 1960 Requested By: Chapis Jack Order Number: [id number] Benjamin MD: Tylor Torrez M.D. Measurements Intervals [place] Rate: 73 P: 49 DE: 184 QRS: 26 QRSD: 90 T: 27 QT: 373 QTc: 412 Interpretive Statements SINUS RHYTHM Compared to ECG 04/20/2025 13:15:30 No significant changes Electronically Signed On 04-21-2025 14:41:21 CDT by Tylor Torrez M.D. [email or web address] [id number]
[2025-04-20] MEDS: norepinephrine 4 MG/250 ML BAG 26.25 MG IV (16:43)
[2025-04-20 17:29] LABS: Troponin 5 2HR 139.7 ng/L (0-15); Troponin 5 2HR Delta -12.3 ABS# (0-10)
--- NOTE | 2025-04-20 17:38 | PC.NURSE ---
Shift SUmmary: was on the phone with staff today and informed us that his suprapubic catheter has been getting clogged at home and that she has been cleaning it out in their sink with a metal coat paperhanger and then replacing it. Though she has stopped doing this after advice from her doctor. Sedation vacation started at 0900. At the time of this note, he has been off of versed for 7 hours, and off of fentanyl for 5 hours. Remains unresponsive even to painful stimuli. Has a very weak gag reflecx with inline suction, occaisonal eye movement which does not appear to be related to any stimulus. Spontaneous breahting trials x3 today. Failed each time, no spontaneous breaths. Urine output: 1375
[2025-04-20] MEDS: heparin drip 25,000 UNIT/500 ML PREMIX 20 UNIT IV (18:18)
[2025-04-20] MEDS: heparin 5,000 unit/mL INJ 1 mL IVP (18:26)
--- NOTE | 2025-04-20 19:57 | ECG_ITS ---
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 Measurements Intervals [place] Rate: 72 P: 59 UT: 188 QRS: 30 QRSD: 85 T: 25 QT: 379 QTc: 416 Interpretive Statements SINUS RHYTHM Compared to ECG 04/20/2025 15:18:30 No significant changes Electronically Signed On 04-21-2025 14:39:52 CDT by Tylor Torrez M.D. [id number]
[2025-04-20 20:42] LABS: Platelet Count 171 10^3/cmm (157-399)
[2025-04-20 21:00] LABS: Troponin 5 6HR 122.0 ng/L (0-15); Troponin 5 6HR Delta -30.0 ng/L (0-12)
[2025-04-20] MEDS: fentaNYL 1,000 MCG/100 ML BAG 2.5 MCG IV (23:00)
[2025-04-21] VITALS (102 sets, daily range): BP systolic 104–188; BP diastolic 53–124; PULSE 57–122; RESP 9–31; TEMP 35.9–37.6; O2SAT 83–100
[2025-04-21 00:04] LABS: Partial Thromboplastin Time 84.3 SECONDS (23.9-36.7)
--- NOTE | 2025-04-21 03:21 | PC.NURSE ---
VERSED WASTE Wasted 51 ml IV versed with JAVIER uD.
--- NOTE | 2025-04-21 04:00 | XRR_ITS ---
PROCEDURE INFORMATION: Exam: XR Chest Exam date and time: 04/21/2025 06:00 AM Age: 64 years old Clinical indication: Prior surgery; Surgery date: 6+ months; Surgery type: Spinal fusion; F/u resp failure. Intuabted with central line and og in place. ; Additional info: Intubated, line and tube positioning TECHNIQUE: Imaging protocol: Radiologic exam of the chest. Views: 1 view. COMPARISON: [place] [id number] 04/20/2025 01:51 PM FINDINGS: Tubes, catheters and devices: Right IJ central line tip over the right atrium. Enteric tube in place with the tip not visualized. Endotracheal tube tip over the lower thoracic trachea, just above the eduardo. Lungs: Low lung volumes. No new airspace consolidation. Pleural spaces: Possible small right pleural effusion. Heart/Mediastinum: Cardiac size and configuration is stable. Bones/joints: Spinal fixation hardware over the thoracic spine. XR/XR chest 1V portable [id number] IMPRESSION: 1. Endotracheal tube tip over the lower thoracic trachea, just above the eduardo. 2. No new airspace consolidation. 3. Possible small right pleural effusion.
[2025-04-21] MEDS: pantoprazole 40 mg SDV IVP (04:12)
[2025-04-21 04:29] LABS: Hematocrit 35.5 % (37-53); Hemoglobin 10.40 g/dL (11.27-16.99); Mean Corpuscular HGB Conc 29.3 g/dL (30-55); Mean Corpuscular Hemoglobin 23.4 pg (27-33); Mean Corpuscular Volume 80.0 fl (82-101); Nucleated Red Blood Cells % 0 %; Platelet Count 141 10^3/cmm (157-399); Red Blood Count 4.44 10^6/uL (3.85-5.65); White Blood Count 6.26 10^3/uL (3.29-11.43)
[2025-04-21 04:50] LABS: ABG PCO2 35.4 mmHg (35-45); ABG PH Result 7.45 (7.35-7.45); Arterial Blood Gas Hematocrit 34.1 % (42-52); Blood Gas Allen Test Pos; Blood Gas Operator Identificat JDB; Blood Gas Sample Site Radial, right; Blood Gas Sample Type Arterial; Blood Gas Tidal Volume 0.45; HCO3 ABG 24.7 mmol/L (22-26); PEEP 8.0 cmH20; PO2 ABG 70.9 mmHg (80.0-100.0); PO2 FiO2 Ratio Arterial Blood 236
[2025-04-21 04:55] LABS: Alanine Aminotransferase 6 U/L (0-41); Albumin Level 2.7 g/dL (3.5-5.2); Alkaline Phosphatase 62 U/L (40-130); Anion Gap 17.2 (5-19); Aspartate Amino Transferase 9 U/L (0-40); Blood Urea Nitrogen 28 mg/dL (8-23); Calcium 8.1 mg/dL (8.5-10.5); Carbon Dioxide 23 mmol/L (22-29); Chloride 105 mmol/L (98-107); Creatinine Clr Calc Pharmacy 53.9435; Globulin 3.2 g/dL (1.3-4.6); Glucose 124 mg/dL (65-115); Osmolality Calculated 299 mOsm/kg (285-295); Potassium 4.2 mmol/L (3.5-5.1); Sodium 141 mmol/L (136-145); Total Protein 5.9 g/dL (6.6-8.7)
[2025-04-21 06:26] LABS: Partial Thromboplastin Time 62.1 SECONDS (23.9-36.7)
[2025-04-21] MEDS: dexmedeTOMIDine 0.9 % NaCL 400 MCG/100 ML PREMIX IV (07:14)
--- NOTE | 2025-04-21 08:57 | PC.NURSE ---
Mental status: Upon morning assessment/rounding, patient found to be awake but lethargic. Will follow simple commands and nod head yes/no to answer questions. Appears uncomfortable. Nurse notified Dr josephine santizo about mental state and agitation. Nurse does not want to start versed for agitation due to concerns of oversedation and losing ground on mental status. Received orders for precedex.
--- NOTE | 2025-04-21 11:01 | PC.NURSE ---
Extubation: Extubated at 1038 to 3,5 L NC. Uneventful. Attempts to give verbal responses, but voice is very weak.
[2025-04-21 12:46] LABS: Partial Thromboplastin Time 50.9 SECONDS (23.9-36.7)
--- NOTE | 2025-04-21 12:53 | P.PN_ITS ---
Subjective 2 Subjective: extubated today Medications: Reviewed: Yes Vitals/I&O/Wt Last Vital Signs Temp 99.6 F 04/21/25 07:00 Pulse 101 H 04/21/25 11:15 Resp 18 04/21/25 11:15 BP 166/78 04/21/25 11:15 Pulse Ox 98 04/21/25 11:15 O2 Del Method Nasal Cannula 04/21/25 11:15 O2 Flow Rate 4 04/21/25 11:15 FiO2 30 04/21/25 08:58 04/20/25 04/21/25 04/21/25 22:59 06:59 14:59 Intake Total 1484.062 / 2797.512 337.788 / 3135.300 54.226 / 54.226 Output Total 1250 / 1250 350 / 350 Balance 1484.062 / 2797.512 -912.212 / 1885.300 -295.774 / -295.774 Weight last 48 hrs Weight 70.352 kg Weight 72.5 kg Weight 72.5 kg Physical Exam 2 Narrative: General: intubated, sedated HEENT: PERRLA, pupils bilaterally equal and reactive, pallors not present Chest: Normal vesicular breath sounds, no added sounds, equal good air entry bilaterally CVS: S1-S2 regular, no murmurs, no tachycardia, no gallops, no rubs Abdomen: Soft, nontender, no organomegaly, bowel sounds present Neuro: unable to assess, intubated, sedated Extremities: stage 4 decub ulcer Urinary Catheter Management: Suprapubic: Cath Placed During This Visit: yes Reason for Continuing Indwelling Catheter: Chronic Indwelling Urinary Catheter on Admission Urinary Catheter Date of Insertion: 04/19/25 Urinary Catheter Time of Insertion: 04:38 Data 04/21/25 03:24 04/21/25 03:24 Micro: Microbiology 04/19/25 10:09 Gram Stain - Final Buttock Wound Culture - Preliminary 04/19/25 08:45 Gram Stain - Final Sputum - Endotracheal Tube Aspirate Sputum Culture - Final 04/19/25 06:35 Urine Culture - Final Urine Suprapubic A&P Assessment and plan 1. Dehydration: Patient seems dehydrated on clinical examination UTOX Ringer lactate at 125 mL/h and later on to assess accordingly for clinical improvement Monitor renal parameters and electrolytes 2. GUY (acute kidney injury): CPK mildly high UTOX to follow Ringer lactate to continue at 125 mL/h Adequate intake output monitoring Monitor renal functions Avoid any nephrotoxic drugs 3. Hyperkalemia: Since the patient is mild sleepy Lokelma could not be given Dextrose water 5% 500 mL bolus stat Continue adequate hydration And follow electrolytes specially potassium 4. Acute metabolic encephalopathy: Patient is alert could be element of dehydration versus intoxication Patient is alert with mild skin pinching and interacts with saying what happened what happened I do not know. Patient is a poor historian therefore adequate history cannot be obtained No leukocytosis or infectious source to be obtained yet Follow UA and urine culture Blood cultures Repeat lactate after adequate hydration 5. Paraplegia: OT PT referral 6. Diabetes mellitus: Insulin sliding scale and monitor blood glucose 7. Neurogenic bladder: Suprapubic catheter care Follow UA and urine cultures 8. Pyelonephritis: Plan: 04/20/25: chart reveiwed. 64M with paraplegia, large decubitus ulcer at least since 2017, known chronic osteomyelitis of the sacrum followed by wound care closely , s/p diverting colostomy and SPC in place which is changed every month. Admitted with sepsis, fever, shock currently on pressors. Labs notable for GUY. no abdominal imaging perfromed thus far. Ordered for CT ABdomen/pelvis as source suspected to be urinary. His reports a recently blocked SPC and she has used a coat blind hanger and tap water to clean in the past as intructed reportedly by previous physicians. She reports pyuria at home recently. Abd/pelvis to evaluate for obstructive urinary process. chronic osteomyelitis unlikley to be source with otherwise stable wound per review of [facility] notes. Awaiting genreal surgery asseement. Ct abd/pelvis to additionally assess for any underlying abscess/interval change with osteomyelitis. Off Versed today but does not awaken. Ct head reveiwed normal from admission. Sudden decompensation reported in ED. Check EKG and trop series. Check D dimer screen to screen for PE. all updates discussed with daughter at bedside and over the phone 04/21/25 : patient extubated today after sustaining aspontaneous breathing trial. On precedex, to be weaned as tolerated. Folloiwng commands off sedation. Off levophed today. Tachycardic 110 and hypertensive SBP 160s, add iv metoprolol 2.5mg iv every 6 hrs prn. trop trend 150--139--122. suspect type 2 [place]. awaiting echo. D dimer elevated at 2.85. PE remains on differential. continue heparin drip as started yesterday. Cr improving at 1.4. If remains improving plan for CTA tomorrow and d/c heparin if negative. Alternately may get V/q scan if cannot get CTA. continue meropenem and vancomycin. pending urine cx. Blood cx negative thus far. CT CAP without obstructive process, suspcion for right pyelonpehirtis which is consistent with clinical picture. PDMP PDMP Reviewed: Not Reviewed Attestations 2 Medical Necessity Statement*: extubated today, continue IV abx, heparin drip, pending echo, CTA Critical Care Time: The high probability of a clinically significant, sudden or life threatening deterioration of the patient's [resp, CV, ID, ] system(s) required my full and direct attention, intervention and personal management. The critical care time is as shown. This time is in addition to time spent performing any reported procedures but includes the following: [x] Data and vital sign review and interpretation [x] Patient assessment, examination and intervention [x] Documentation [x] Medication orders and management Critical Care Time (min): 50 Coding Level of Care Code Critical Care >/= 30 minutes Diagnoses Dehydration E86.0 GUY (acute kidney injury) N17.9 Hyperkalemia E87.5 Acute metabolic encephalopathy G93.41 Paraplegia G82.20 Diabetes mellitus E11.9 Neurogenic bladder N31.9 Pyelonephritis N12
[2025-04-21] MEDS: meropenem 1,000 mg SDV 1000 MG IVP (13:30)
[2025-04-21] MEDS: heparin 5,000 unit/mL INJ 1 mL IVP ×2 (13:39→20:05)
--- NOTE | 2025-04-21 14:00 | PC.NURSE ---
Addendum entered by TOSHIA Alvarez 04/22/25 16:27: Witnessed waste. Original Note: wasted 50cc fentanyl wasted
[2025-04-21] MEDS: hyDRALAzine 20 mg/mL INJ 1 mL 10 MG IVP ×2 (14:02→23:02)
[2025-04-21] MEDS: methylPREDNISolone sod succ 125 mg/2 mL INJ IVP (14:02)
--- NOTE | 2025-04-21 14:08 | PC.NURSE ---
Physician Communication: Patient is attmepting to repositionin himself in bed, but due to bilateral amputation it is not very effective, nurse received order for trapeze form physical therapy. Blood pressures have been tredning up since extubation, at time of this note they are [address] salmeron and received orders for prn hydralazine Patient has upper airway secretions which he has had difficulty clearing. Though the strength of his cough is improving, it is still weak. Unable to cough out secretions. Occasionally able to swallow them. Nurse has concerns for aspiration. Alerted Dr vuong. Received orders for one time dose of methylprednisolone.
--- NOTE | 2025-04-21 17:44 | PC.NURSE ---
Shift SUmmary: Extubated at 1038. alert, seems to be oriented to person, place, and situation but is hard to communicate due to weak voice. Recognized his at bedside. Rhonchi throughout shift. Patient's cough has become stronger since extubation, but it is still very weak. Unable to expectorate sputum, but is able to occasionally clear it by swallowing. Concerns for aspiration communicated to physician. 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 hydralazine PRN added for hypertension. PTT at 2030 Total urine output: 1775
--- NOTE | 2025-04-21 17:53 | USCV_ITS ---
Israel Mullen Age: 64 Gender: M : 1960 Exam Date: 04/21/2025 09:13 Ordering Phys: Chapis Jack MD Technologist: Anirudh Espraza Exam Location: [facility] [place] Indication: NSTEMI BP: 124 / 60 HR: 99 Rhythm: Sinus Technical Quality: Adequate MEASUREMENTS (Male / Female) Normal Values 2D ECHO LV Diastolic Diameter PLAX 3.6 cm 4.2 - 5.9 / 3.9 - 5.3 cm IVS Diastolic Thickness 1.0 cm 0.6 - 1.0 / 0.6 - 0.9 cm IVS Systolic Thickness 1.3 cm LVPW Diastolic Thickness 1.1 cm 0.6 - 1.0 / 0.6 - 0.9 cm LVPW Systolic Thickness 1.4 cm LVOT Diameter 2.0 cm LV Ejection Fraction 2D Teich 68.7 % LV Ejection Fraction MOD 4C 74.0 % LV Ejection Fraction MOD 2C 64.6 % LV Ejection Fraction 2C AL 65.2 % LA Diameter 3.1 cm RA Systolic Volume 4C AL 21.0 ml RA Systolic Volume 4C MOD 19.8 ml LA Sys Volume AL 21.4 cm cubed LA Sys Volume Index AL 14.7 cm cubed/m squared Aorta at Sinotubular Diameter 2.7 cm IVC Diameter 1.7 cm DOPPLER AV Peak Velocity 124.0 cm/s LVOT Peak Velocity 87.0 cm/s AV Area Cont Eq vti 2.4 cm squared AV Area Cont Eq pk 2.2 cm squared MV Peak Velocity 106.0 cm/s MV Area PHT 8.4 cm squared Mitral E to A Ratio 0.8 TV Peak Velocity 175.0 cm/s TR Peak Velocity 183.0 cm/s TR Peak Gradient 13.4 mmHg TR Mean Velocity 154.0 cm/s TR Mean Gradient 9.8 mmHg TR Velocity Time Integral 38.6 cm PV Peak Velocity 100.7 cm/s RV Ejection Time 0.2 s FINDINGS Left Ventricle Normal left ventricular size and systolic function, EF 65%.. Mild left ventricular hypertrophy. No regional wall motion abnormalities. Grade I/IV diastolic dysfunction (abnormal relaxation filling pattern), normal to mildly elevated filling pressures. Right Ventricle Normal right ventricular size and systolic function. Right Atrium Normal right atrial size. Left Atrium Normal left atrial size. IA Septum Normal appearance of the interatrial septum. Mitral Valve Trace mitral valve regurgitation. Aortic Valve No gross abnormalities noted Tricuspid Valve Trace tricuspid valve regurgitation. Pulmonic Valve No gross abnormalities noted Pericardium No pericardial effusion. Aorta Normal aortic annulus size. IVC Inferior vena cava not visualized. CONCLUSIONS Normal left ventricular size and systolic function, EF 65%.. Mild left ventricular hypertrophy. No regional wall motion abnormalities. Grade I/IV diastolic dysfunction (abnormal relaxation filling pattern), normal to mildly elevated filling pressures. Trace of mitral and tricuspid regurgitation There is no pericardial effusion. There are no intracardiac masses. No similar previous studies are available for comparison Dr Tylor Torrez MD FACC (Electronically Signed) Final Date: 21 April 2025 18:44 S
[2025-04-21] MEDS: heparin drip 25,000 UNIT/500 ML PREMIX 20 UNIT IV (18:15)
[2025-04-21 19:49] LABS: Partial Thromboplastin Time 49.7 SECONDS (23.9-36.7)
[2025-04-22] VITALS (59 sets, daily range): BP systolic 98–191; BP diastolic 59–102; PULSE 54–117; RESP 13–33; TEMP 35.8–36.9; O2SAT 90–100
[2025-04-22] MEDS: meropenem 1,000 mg SDV 1000 MG IVP ×2 (01:19→12:04)
[2025-04-22 02:08] LABS: Hematocrit 40.7 % (37-53); Hemoglobin 12.10 g/dL (11.27-16.99); Mean Corpuscular HGB Conc 29.7 g/dL (30-55); Mean Corpuscular Hemoglobin 23.4 pg (27-33); Mean Corpuscular Volume 78.9 fl (82-101); Nucleated Red Blood Cells % 0 %; Platelet Count 151 10^3/cmm (157-399); Red Blood Count 5.16 10^6/uL (3.85-5.65); White Blood Count 3.52 10^3/uL (3.29-11.43)
[2025-04-22 02:20] LABS: Partial Thromboplastin Time 55.6 SECONDS (23.9-36.7)
[2025-04-22 02:30] LABS: Alanine Aminotransferase 8 U/L (0-41); Albumin Level 3.3 g/dL (3.5-5.2); Alkaline Phosphatase 69 U/L (40-130); Anion Gap 21.4 (5-19); Aspartate Amino Transferase 13 U/L (0-40); Blood Urea Nitrogen 23 mg/dL (8-23); Calcium 8.7 mg/dL (8.5-10.5); Carbon Dioxide 20 mmol/L (22-29); Chloride 103 mmol/L (98-107); Creatinine Clr Calc Pharmacy 81.4259; Globulin 3.9 g/dL (1.3-4.6); Glucose 196 mg/dL (65-115); Osmolality Calculated 299 mOsm/kg (285-295); Potassium 4.4 mmol/L (3.5-5.1); Sodium 140 mmol/L (136-145); Total Protein 7.2 g/dL (6.6-8.7)
[2025-04-22] MEDS: pantoprazole 40 mg SDV IVP (05:08)
[2025-04-22] MEDS: hyDRALAzine 20 mg/mL INJ 1 mL 10 MG IVP (06:58)
[2025-04-22 08:58] LABS: Partial Thromboplastin Time 51.9 SECONDS (23.9-36.7)
[2025-04-22] MEDS: heparin 5,000 unit/mL INJ 1 mL IVP ×2 (09:34→16:01)
--- NOTE | 2025-04-22 13:47 | CTR_ITS ---
PROCEDURE INFORMATION: Exam: CTA Chest With Contrast Exam date and time: 04/22/2025 2:54 PM Age: 64 years old Clinical indication: Shortness of breath; Additional info: Evaluate for pe TECHNIQUE: Imaging protocol: Computed tomographic angiography of the chest with contrast. Exam focused on the arteries. 3D rendering (Not supervised by radiologist): MIP and/or 3D reconstructed images were created by the technologist. Radiation optimization: All CT scans at this facility use at least one of these dose optimization techniques: automated exposure control; mA and/or kV adjustment per patient size (includes targeted exams where dose is matched to clinical indication); or iterative reconstruction. Contrast material: OMNI 350; Contrast volume: 43 ml; Contrast route: INTRAVENOUS (IV); COM[place]ISON[place] [id number] 04/20/2025 1:51 PM RADIATION DOSE METRICS: Total DLP (mGy-cm): 412.22 FINDINGS: Tubes, catheters and devices: There is a right central line with tip at the superior cavoatrial junction. There is a linear tubular device within the left brachiocephalic vein measuring approximately 6 cm in length also seen on recent prior comparison suggesting a small catheter fragment from prior left chest wall medication port which has been removed. Pulmonary arteries: There are small subsegmental pulmonary emboli within the left lower lobe. No evidence of right heart strain. The RV/LV ratio measures approximately 0.9. Aorta: Minimal atherosclerosis in the thoracic aorta without aneurysm or dissection. Lungs: Minimal residual opacity in the lung bases with near complete resolution of the prior areas of consolidation. The tracheobronchial airways are clear. Pleural spaces: No pneumothorax. Trace pleural effusions. Heart: Normal-sized heart. No pericardial effusion.Coronary artery calcification is present. Lymph nodes: No enlarged mediastinal lymphadenopathy. Gallbladder and biliary ducts: Incidental cholelithiasis.The visualized upper abdominal solid organs and hollow viscera are otherwise unremarkable. Bones/joints: Prior posterior spinal fixation from T1 to T8. Scattered endplate and facet degenerative changes. No fracture or aggressive osseous lesion. Soft tissues: Bilateral gynecomastia. CT/CT angio chest PE protcl [id number] IMPRESSION: 1. Small subsegmental pulmonary emboli in the left lung base. No evidence of right heart strain. 2. Nearly resolved areas of consolidation in both lung bases with minimal residual ground-glass opacity and trace pleural fluid. 3. There is a catheter fragment measuring approximately 6 cm in the left brachiocephalic vein suggesting a retained catheter component from prior left chest wall medication port. 4.Other incidental and/or chronic findings as detailed above.
[2025-04-22] MEDS: FUROsemide 10 mg/mL SDV 4mL 40 MG IVP (14:21)
[2025-04-22] MEDS: iohexol 350 mg/mL 500 mL Btl (per mL) IV (15:00)
[2025-04-22 15:34] LABS: Partial Thromboplastin Time 44.7 SECONDS (23.9-36.7)
--- NOTE | 2025-04-22 16:57 | PM.PN ---
Subjective Subjective: Patient is awake alert. Slow to respond however answers all orientation questions correctly this afternoon. Interval crackles on exam today. Hypertensive and tachycardic. Medications: Reviewed: Yes Vitals/I&O/Wt Last Vital Signs Temp 97.1 F L 04/22/25 16:00 Pulse 113 H 04/22/25 16:00 Resp 21 H 04/22/25 16:00 BP 164/79 04/22/25 16:00 Pulse Ox 95 04/22/25 16:00 O2 Del Method Room Air 04/22/25 16:00 O2 Flow Rate 2 04/22/25 08:00 FiO2 30 04/21/25 08:58 04/22/25 04/22/25 04/22/25 06:59 14:59 22:59 Intake Total 385.1 / 701.608 507.35 / 507.35 138.6 / 645.95 Output Total 800 / 3575 Balance -414.9 / -2873.392 507.35 / 507.35 138.6 / 645.95 Weight last 48 hrs Weight 69.91 kg Weight 70.352 kg Physical Exam Narrative: General: intubated, sedated HEENT: PERRLA, pupils bilaterally equal and reactive, pallors not present Chest: Normal vesicular breath sounds, no added sounds, equal good air entry bilaterally CVS: S1-S2 regular, no murmurs, no tachycardia, no gallops, no rubs Abdomen: Soft, nontender, no organomegaly, bowel sounds present Neuro: unable to assess, intubated, sedated Extremities: stage 4 decub ulcer Urinary Catheter Management: Suprapubic: Cath Placed During This Visit: yes Reason for Continuing Indwelling Catheter: Chronic Indwelling Urinary Catheter on Admission Urinary Catheter Date of Insertion: 04/19/25 Urinary Catheter Time of Insertion: 04:38 Data 04/22/25 01:58 04/22/25 01:58 Micro: Microbiology 04/19/25 10:09 Gram Stain - Final Buttock Wound Culture - Final 04/19/25 08:45 Gram Stain - Final Sputum - Endotracheal Tube Aspirate Sputum Culture - Final A&P Assessment and plan 1. Dehydration: Patient seems dehydrated on clinical examination UTOX Ringer lactate at 125 mL/h and later on to assess accordingly for clinical improvement Monitor renal parameters and electrolytes 2. GUY (acute kidney injury): CPK mildly high UTOX to follow Ringer lactate to continue at 125 mL/h Adequate intake output monitoring Monitor renal functions Avoid any nephrotoxic drugs 3. Hyperkalemia: Since the patient is mild sleepy Lokelma could not be given Dextrose water 5% 500 mL bolus stat Continue adequate hydration And follow electrolytes specially potassium 4. Acute metabolic encephalopathy: Patient is alert could be element of dehydration versus intoxication Patient is alert with mild skin pinching and interacts with saying what happened what happened I do not know. Patient is a poor historian therefore adequate history cannot be obtained No leukocytosis or infectious source to be obtained yet Follow UA and urine culture Blood cultures Repeat lactate after adequate hydration 5. Paraplegia: OT PT referral 6. Diabetes mellitus: Insulin sliding scale and monitor blood glucose 7. Neurogenic bladder: Suprapubic catheter care Follow UA and urine cultures 8. Pyelonephritis: 9. Pulmonary embolism: 10. Type 2 DC (myocardial infarction): 11. Chronic osteomyelitis of sacrum: Plan: 04/20/25: chart reveiwed. 64M with paraplegia, large decubitus ulcer at least since 2017, known chronic osteomyelitis of the sacrum followed by wound care closely , s/p diverting colostomy and SPC in place which is changed every month. Admitted with sepsis, fever, shock currently on pressors. Labs notable for GUY. no abdominal imaging perfromed thus far. Ordered for CT ABdomen/pelvis as source suspected to be urinary. His reports a recently blocked SPC and she has used a coat bag hanger and tap water to clean in the past as intructed reportedly by previous physicians. She reports pyuria at home recently. Abd/pelvis to evaluate for obstructive urinary process. chronic osteomyelitis unlikley to be source with otherwise stable wound per review of [facility] notes. Awaiting genreal surgery asseement. Ct abd/pelvis to additionally assess for any underlying abscess/interval change with osteomyelitis. Off Versed today but does not awaken. Ct head reveiwed normal from admission. Sudden decompensation reported in ED. Check EKG and trop series. Check D dimer screen to screen for PE. all updates discussed with daughter at bedside and over the phone 04/21/25 : patient extubated today after sustaining aspontaneous breathing trial. On precedex, to be weaned as tolerated. Folloiwng commands off sedation. Off levophed today. Tachycardic 110 and hypertensive SBP 160s, add iv metoprolol 2.5mg iv every 6 hrs prn. trop trend 150--139--122. suspect type 2 DC. awaiting echo. D dimer elevated at 2.85. PE remains on differential. continue heparin drip as started yesterday. Cr improving at 1.4. If remains improving plan for CTA tomorrow and d/c heparin if negative. Alternately may get V/q scan if cannot get CTA. continue meropenem and vancomycin. pending urine cx. Blood cx negative thus far. CT CAP without obstructive process, suspcion for right pyelonpehirtis which is consistent with clinical picture. 04/22/2025 64-year-old male admitted with sepsis related to pyelonephritis. Patient has a longstanding chronic sacral wound with chronic sacral osteomyelitis which does not appear to be the current source. He is followed closely by wound care clinic. Does not need any long-term antibiotics for this finding at this time. Previously has seen me as infectious disease as outpatient for the same. Urine culture is currently awaited to transition IV to oral antibiotics. He is afebrile. Tachycardic and hypertensive today. Will start metoprolol 25 mg p.o. twice daily. Interval development of crackles on exam today. Lasix 40 mg IV x 1 and monitor for response. Echocardiogram performed today shows an ejection fraction of 65%. Grade 1 diastolic dysfunction. Mild elevated filling pressures. No regional wall motion abnormalities. rUnlikely that the troponin elevation was related to ischemic event. More likely to be related to type II DC versus PE discovered today. Today which shows a small subsegmental pulmonary emboli in the left lung base. No evidence of right heart strain either on echo or CT. Areas of consolidation at both lung bases which are currently improving. GUY resolved Incidentally noticed catheter fragment measuring approximately 6 cm in the left brachiocephalic vein suggesting a retained catheter from prior Port-A-Cath. In reviewing his x-rays from before, patient had a Port-A-Cath in place in December 2024. His daughter reports that this port was removed in February [address] Stanley at [facility]. Reportedly there were no issues with the port, patient did not need it anymore and this was a planned removal. They are not aware of any complications at the time of port removal however his is expected to have more information. Patient's is currently not answered our phone calls to get some more information. Procedure notes requested from [facility] to establish if the tubing was unable to be removed safely at the time. This appears to be an incidental finding with the port being removed 2 months ago. Will need outpatient follow-up with the surgeon to determine if he needs further vascular or IR follow-up for this fragment removal. Transfer from ICU to [facility]. PDMP PDMP Reviewed: Not Reviewed Attestations Medical Necessity Statement*: Continue antibiotics, awaiting urine cultures, speech therapy assessment, IV Lasix today, PE needing anticoagulation Coding Level of Care Code Acute Code for Chg Fwd High MDM includes number and complexity of problems actively addressed during encounter, amount and/or complexity of data reviewed/ordered and described risk of complication, morbidity or mortality of management as documented Diagnoses Dehydration E86.0 GUY (acute kidney injury) N17.9 Hyperkalemia E87.5 Acute metabolic encephalopathy G93.41 Paraplegia G82.20 Diabetes mellitus E11.9 Neurogenic bladder N31.9 Pyelonephritis N12 Pulmonary embolism I26.99 Type 2 DC (myocardial infarction) I21.A1 Chronic osteomyelitis of sacrum M86.68
--- NOTE | 2025-04-22 23:06 | ECG_ITS ---
[facility] Date: 2025-04-22 Pat Name: Israel Mullen Department: Room: [facility] Gender: Male [employer]: : 1960 Requested By: Caterina Barone Order Number: [id number] Benjamin MD: Tylor Torrez M.D. Measurements Intervals [place] Rate: 76 P: 53 DE: 171 QRS: 39 QRSD: 96 T: 42 QT: 416 QTc: 468 Interpretive Statements SINUS RHYTHM Compared to ECG 04/20/2025 19:57:02 No significant changes Electronically Signed On 04-23-2025 23:27:16 CDT by Tylor Torrez M.D. [email or web address]
[2025-04-23] VITALS (89 sets, daily range): BP systolic 119–196; BP diastolic 67–129; PULSE 59–127; RESP 12–34; TEMP 36.6–37.2; O2SAT 86–100
[2025-04-23] MEDS: meropenem 1,000 mg SDV 1000 MG IVP ×3 (01:23→20:35)
[2025-04-23 04:33] LABS: Hematocrit 39.1 % (37-53); Hemoglobin 11.80 g/dL (11.27-16.99); Mean Corpuscular HGB Conc 30.2 g/dL (30-55); Mean Corpuscular Hemoglobin 23.3 pg (27-33); Mean Corpuscular Volume 77.3 fl (82-101); Nucleated Red Blood Cells % 0 %; Platelet Count 187 10^3/cmm (157-399); Red Blood Count 5.06 10^6/uL (3.85-5.65); White Blood Count 5.78 10^3/uL (3.29-11.43)
[2025-04-23 05:06] LABS: Alanine Aminotransferase 11 U/L (0-41); Albumin Level 3.6 g/dL (3.5-5.2); Alkaline Phosphatase 66 U/L (40-130); Anion Gap 17.1 (5-19); Aspartate Amino Transferase 18 U/L (0-40); Blood Urea Nitrogen 23 mg/dL (8-23); Calcium 8.7 mg/dL (8.5-10.5); Carbon Dioxide 25 mmol/L (22-29); Chloride 103 mmol/L (98-107); Creatinine Clr Calc Pharmacy 91.0286; Globulin 3.7 g/dL (1.3-4.6); Glucose 178 mg/dL (65-115); Osmolality Calculated 300 mOsm/kg (285-295); Potassium 4.1 mmol/L (3.5-5.1); Sodium 141 mmol/L (136-145); Total Protein 7.3 g/dL (6.6-8.7)
[2025-04-23] MEDS: hyDRALAzine 20 mg/mL INJ 1 mL 10 MG IVP (16:59)
--- NOTE | 2025-04-23 17:25 | P.PN_ITS ---
Subjective 2 Subjective: Awake, altered this AM. Vitals/I&O/Wt Last Vital Signs Temp 98.7 F 04/23/25 17:02 Pulse 76 04/23/25 16:15 Resp 22 H 04/23/25 16:15 BP 182/98 04/23/25 16:15 Pulse Ox 97 04/23/25 14:37 O2 Del Method Room Air 04/23/25 14:37 O2 Flow Rate 2 04/22/25 08:00 FiO2 30 04/21/25 08:58 04/23/25 04/23/25 04/23/25 06:59 14:59 22:59 Intake Total 490 / 1670.567 240 / 240 250 / 490 Output Total 875 / 2625 1450 / 1450 Balance -385 / -954.433 240 / 240 -1200 / -960 Weight last 48 hrs Weight 80 kg Weight 69.91 kg Physical Exam 2 Narrative: General: intubated, sedated HEENT: PERRLA, pupils bilaterally equal and reactive, pallors not present Chest: CTAB CVS: S1-S2 regular, no murmurs, no tachycardia, no gallops, no rubs Abdomen: Soft, nontender, no organomegaly, ostomy present, suprapubic catheter present. Neuro: unable to assess, intubated, sedated Extremities: stage 4 decub ulcer, BL LE amputations. Urinary Catheter Management: Suprapubic: Cath Placed During This Visit: yes Reason for Continuing Indwelling Catheter: Chronic Indwelling Urinary Catheter on Admission Urinary Catheter Date of Insertion: 04/19/25 Urinary Catheter Time of Insertion: 04:38 Data 04/23/25 03:51 04/23/25 03:51 Micro: Microbiology 04/19/25 10:09 Gram Stain - Final Buttock Wound Culture - Final A&P Assessment and plan 1. Type 2 MO (myocardial infarction): 2. Chronic osteomyelitis of sacrum: 3. Pulmonary embolism: 4. Pyelonephritis: 5. Acute hypoxic respiratory failure: Plan: 64M with paraplegia, large decubitus ulcer at least since 2017, known chronic osteomyelitis of the sacrum followed by wound care closely , s/p diverting colostomy and SPC in place which is changed every month. Admitted with sepsis, fever, shock. 1. Dehydration: Ringer lactate at 125 mL/h and later on to assess accordingly for clinical improvement Monitor renal parameters and electrolytes 2. GUY (acute kidney injury): CPK mildly high UTOX mixed shanika Ringer lactate to continue at 125 mL/h Adequate intake output monitoring Avoid any nephrotoxic drugs - creatinine normalized 3. Hyperkalemia: - currently in normal range. 4. Acute metabolic encephalopathy: Patient is alert could be element of dehydration versus intoxication Patient is a poor historian therefore adequate history cannot be obtained No leukocytosis or infectious source to be obtained yet Follow UA and urine culture Blood cultures NGTD Repeat lactate normalized 5. Paraplegia: OT PT referral 6. Diabetes mellitus: Insulin sliding scale and monitor blood glucose 7. Neurogenic bladder: Suprapubic catheter care Follow UA and urine cultures 8. Pyelonephritis: - cont. abx 9. Pulmonary embolism: - on CTA: small subsegmental pulmonary emboli in left lung base, no heart strain. - currently on therapeutic lovenox BID 10. Type 2 MO (myocardial infarction): - echo done with normal EF, no wall motion abnormalities. - no ACS. 11. Chronic osteomyelitis of sacrum: - wound care following. - has not need abx outpatient. Left brachiocephalic vein catheter fragment - 6 cm, incidentally found - Port-A-Cath removed in February 2025 - will need outpatient follow up with Dr. Stanley at [facility] PDMP PDMP Reviewed: Not Reviewed Attestations 2 Medical Necessity Statement*: ongoing inpatient for AMS, pyelonephritis Time Spent in Patient Care: 16 - 35 minutes (>than 50% of time sp ent in counselling and/or direct pt care on unit) . Coding Level of Care Code Acute Code for [facility] Fwd Diagnoses Type 2 MO (myocardial infarction) I21.A1 Chronic osteomyelitis of sacrum M86.68 Pulmonary embolism I26.99 Pyelonephritis N12 Acute hypoxic respiratory failure J96.01
--- NOTE | 2025-04-23 18:15 | PC.NURSE ---
Patient noted to have elevated HR ranging from 125-148s around 1730, patient denies pain and is noted to be asymptomatic. See documented vital signs. This nurse notified MD notified, new orders placed- see Sep.
[2025-04-23] MEDS: morphine 4 mg/mL SDV 1 mL 2 MG IVP (20:48)
[2025-04-24] VITALS (45 sets, daily range): BP systolic 90–197; BP diastolic 57–136; PULSE 61–139; RESP 14–33; TEMP 36.3–36.8; O2SAT 93–98
[2025-04-24 01:39] LABS: Anion Gap 20.7 (5-19); Blood Urea Nitrogen 15 mg/dL (8-23); Calcium 8.8 mg/dL (8.5-10.5); Carbon Dioxide 22 mmol/L (22-29); Chloride 101 mmol/L (98-107); Creatinine Clr Calc Pharmacy 104.1667; Glucose 172 mg/dL (65-115); Osmolality Calculated 293 mOsm/kg (285-295); Potassium 4.7 mmol/L (3.5-5.1); Sodium 139 mmol/L (136-145)
[2025-04-24] MEDS: morphine 4 mg/mL SDV 1 mL 2 MG IVP ×2 (01:57→15:54)
[2025-04-24 04:20] LABS: Hematocrit 42.4 % (37-53); Hemoglobin 12.90 g/dL (11.27-16.99); Mean Corpuscular HGB Conc 30.4 g/dL (30-55); Mean Corpuscular Hemoglobin 23.8 pg (27-33); Mean Corpuscular Volume 78.1 fl (82-101); Nucleated Red Blood Cells % 0 %; Platelet Count 193 10^3/cmm (157-399); Red Blood Count 5.43 10^6/uL (3.85-5.65); White Blood Count 5.17 10^3/uL (3.29-11.43)
[2025-04-24] MEDS: meropenem 1,000 mg SDV 1000 MG IVP ×2 (04:58→11:58)
--- NOTE | 2025-04-24 15:46 | P.PN_ITS ---
Subjective 2 Subjective: ongoing confusion Vitals/I&O/Wt Last Vital Signs Temp 98.2 F 04/24/25 07:58 Pulse 84 04/24/25 14:30 Resp 21 H 04/24/25 14:30 BP 164/105 04/24/25 15:00 Pulse Ox 95 04/24/25 15:00 O2 Del Method Room Air 04/24/25 08:00 O2 Flow Rate 2 04/22/25 08:00 FiO2 30 04/21/25 08:58 04/24/25 04/24/25 04/24/25 06:59 14:59 22:59 Intake Total 240 / 970 730 / 730 250 / 980 Output Total 950 / 2650 Balance -710 / -1680 730 / 730 250 / 980 Weight last 48 hrs Weight 77.5 kg Weight 80 kg Physical Exam 2 Narrative: Physical Exam Narrative: General: intubate d, sedated HEENT: PERRLA, pupils bi laterally equal an d reactive, pallor s not present Ches t: CTAB CVS: S1-S2 regular, no murmu rs, no tachycardia , no gallops, no r ubs Abdomen: Soft, nontender, no org anomegaly, ostomy present, suprapubi c catheter present . Neuro: unable to assess, intubated , sedated Extremi ties: stage 4 decu b ulcer, BL LE AKA , well healed. Urinary Catheter Management: Suprapubic: Cath Placed During This Visit: yes Reason for Continuing Indwelling Catheter: Chronic Indwelling Urinary Catheter on Admission Urinary Catheter Date of Insertion: 04/19/25 Urinary Catheter Time of Insertion: 04:38 Data 04/24/25 04:12 04/24/25 00:59 Micro: Microbiology 04/19/25 05:05 Blood Culture - Final Blood NO GROWTH AFTER 5 DAYS 04/19/25 04:50 Blood Culture - Final Blood NO GROWTH AFTER 5 DAYS A&P Assessment and plan 1. Chronic osteomyelitis of sacrum: 2. Type 2 RI (myocardial infarction): 3. Pulmonary embolism: 4. Pyelonephritis: 5. Acute hypoxic respiratory failure: Plan: 64M with paraplegia, large decubitus ulcer at least since 2017, known chronic osteomyelitis of the sacrum followed by wound care closely , s/p diverting colostomy and SPC in place which is changed every month. Admitted with sepsis, fever, shock. 1. Dehydration: - BUN currently improved, fluids stopped. 2. GUY (acute kidney injury): CPK mildly high UTOX mixed shanika Adequate intake output monitoring Avoid any nephrotoxic drugs - creatinine normalized 3. Hyperkalemia: - resolved 4. Acute metabolic encephalopathy: Patient is alert could be element of dehydration versus intoxication Patient is a poor historian therefore adequate history cannot be obtained Unclear baseline, however some element of confusion likely persists. No leukocytosis or infectious source to be obtained yet Follow UA and urine culture Blood cultures NGTD Repeat lactate normalized 5. Paraplegia: BL AKA OT PT referral - home baclofen restarted 6. Diabetes mellitus: Insulin sliding scale and monitor blood glucose 7. Neurogenic bladder: Suprapubic catheter care Follow UA and urine cultures 8. Pyelonephritis: - cont. abx: started on vanc/shandra, downgrade to rocephin 2g daily. - urine culture with mixed urogenital shanika 9. Pulmonary embolism: - on CTA: small subsegmental pulmonary emboli in left lung base, no heart strain. - currently on therapeutic lovenox BID - switch to DOAC prior to D/C 10. Type 2 RI (myocardial infarction): - echo done with normal EF, no wall motion abnormalities. - no ACS. 11. Chronic osteomyelitis of sacrum: - wound care following. - has not need abx outpatient. 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 Stanley at [facility] PPx: on therapeutic lovenox for PE. Diet: dysphagia diet. Disposition - patient is med/surg status PDMP PDMP Reviewed: Not Reviewed Attestations 2 Medical Necessity Statement*: ongoing inpatient care for pyelonephritis, AMS Time Spent in Patient Care: 16 - 35 minutes (>than 50% of time sp ent in counselling and/or direct pt care on unit) . Coding Level of Care Code Acute Code for [facility] Fwd Diagnoses Chronic osteomyelitis of sacrum M86.68 Type 2 RI (myocardial infarction) I21.A1 Pulmonary embolism I26.99 Pyelonephritis N12 Acute hypoxic respiratory failure J96.01
[2025-04-24] MEDS: cefTRIAXone 2,000 mg SDV 2000 MG IVP (16:33)
[2025-04-24] MEDS: metoprolol tartrate 1 mg/1 mL SDV 5 mL 5 MG IVP (19:28)
--- NOTE | 2025-04-24 20:29 | PC.NURSE ---
Patient constantly flopping/flipping in bed. Repositions self frequently despite staff assist to safely reposition patient. Causing increased shearing/ pulling on buttocks dressing and wound.
[2025-04-25] VITALS (31 sets, daily range): BP systolic 93–183; BP diastolic 57–98; PULSE 62–133; RESP 16–32; TEMP 36.1–37.2; O2SAT 93–97
[2025-04-25 03:53] LABS: Hematocrit 40.7 % (37-53); Hemoglobin 12.30 g/dL (11.27-16.99); Mean Corpuscular HGB Conc 30.2 g/dL (30-55); Mean Corpuscular Hemoglobin 23.7 pg (27-33); Mean Corpuscular Volume 78.4 fl (82-101); Nucleated Red Blood Cells % 0.4 %; Platelet Count 177 10^3/cmm (157-399); Red Blood Count 5.19 10^6/uL (3.85-5.65); White Blood Count 5.58 10^3/uL (3.29-11.43)
[2025-04-25 04:13] LABS: Anion Gap 13.7 (5-19); Blood Urea Nitrogen 20 mg/dL (8-23); Calcium 8.5 mg/dL (8.5-10.5); Carbon Dioxide 28 mmol/L (22-29); Chloride 101 mmol/L (98-107); Creatinine Clr Calc Pharmacy 100.9115; Glucose 174 mg/dL (65-115); Osmolality Calculated 295 mOsm/kg (285-295); Potassium 3.7 mmol/L (3.5-5.1); Sodium 139 mmol/L (136-145)
[2025-04-25 04:33] LABS: Slide Review Slide Review Perform
--- NOTE | 2025-04-25 13:46 | P.PN_ITS ---
Subjective 2 Subjective: No new issues, remains confused. Vitals/I&O/Wt Last Vital Signs Temp 98.9 F 04/25/25 07:30 Pulse 106 H 04/25/25 08:30 Resp 20 H 04/25/25 08:30 BP 105/76 04/25/25 08:30 Pulse Ox 96 04/25/25 08:30 O2 Del Method Room Air 04/25/25 08:30 O2 Flow Rate 2 04/22/25 08:00 FiO2 30 04/21/25 08:58 04/24/25 04/25/25 04/25/25 22:59 06:59 14:59 Intake Total 590 / 1320 340 / 340 Output Total 600 / 600 75 / 75 Balance - 265 / 265 Weight last 48 hrs Weight 77 kg Weight 77.5 kg Physical Exam 2 Narrative: Physical Exam General: intubated, sedated HEENT: PERRLA, pupils bilaterally equal and reactive, pallors not present Respiratory: CTAB Cards: S1-S2 regular, no murmurs, no tachycardia, no gallops, no rubs Abdomen: Soft, nontender, no organomegaly, ostomy present, suprapubic catheter present Neuro: unable to assess, intubated, sedated Extremities: stage 4 decub ulcer (POA), BL LE AKA, well healed. Urinary Catheter Management: Suprapubic: Cath Placed During This Visit: yes Reason for Continuing Indwelling Catheter: Accurate Measurement of Urinary Output in Critically Ill Patients Urinary Catheter Date of Insertion: 04/19/25 Urinary Catheter Time of Insertion: 04:38 Data 04/25/25 03:40 04/25/25 03:40 A&P Assessment and plan 1. Chronic osteomyelitis of sacrum: 2. Pulmonary embolism: 3. Pyelonephritis: Plan: 64M with paraplegia, large decubitus ulcer at least since 2017, known chronic osteomyelitis of the sacrum followed by wound care closely , s/p diverting colostomy and SPC in place which is changed every month. Admitted with sepsis, fever, shock. 1. Dehydration: - BUN currently improved, fluids stopped. 2. GUY (acute kidney injury): CPK mildly high UTOX mixed shanika Adequate intake output monitoring Avoid any nephrotoxic drugs - creatinine normalized 3. Hyperkalemia: - resolved 4. Acute metabolic encephalopathy: Patient is alert could be element of dehydration versus intoxication Patient is a poor historian therefore adequate history cannot be obtained Unclear baseline, however some element of confusion likely persists. - per , he is normally A/Ox3 with no deficits. No leukocytosis or infectious source to be obtained yet Follow UA and urine culture Blood cultures NGTD Repeat lactate normalized 5. Paraplegia: BL AKA OT PT referral - home baclofen restarted 6. Diabetes mellitus: Insulin sliding scale and monitor blood glucose 7. Neurogenic bladder: Suprapubic catheter care Follow UA and urine cultures 8. Pyelonephritis: - cont. abx: started on vanc/shandra, downgrade to rocephin 2g daily. - urine culture with mixed urogenital shanika 9. Pulmonary embolism: - on CTA: small subsegmental pulmonary emboli in left lung base, no heart strain. - currently on therapeutic lovenox BID - switch to DOAC prior to D/C 10. Type 2 WI (myocardial infarction): - echo done with normal EF, no wall motion abnormalities. - no ACS. 11. Chronic osteomyelitis of sacrum: - wound care following. - has not need abx outpatient. 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 Stanley at [facility] PPx: on therapeutic lovenox for PE. Diet: dysphagia diet. Disposition - patient is med/surg status PDMP PDMP Reviewed: Not Reviewed Attestations 2 Medical Necessity Statement*: ongoing inpatient treatment for pyelonephritis, AMS. Time Spent in Patient Care: 16 - 35 minutes (>than 50% of time sp ent in counselling and/or direct pt care on unit) . Coding Level of Care Code Acute Code for [facility] Fwd Diagnoses Chronic osteomyelitis of sacrum M86.68 Pulmonary embolism I26.99 Pyelonephritis N12
[2025-04-25] MEDS: cefTRIAXone 2,000 mg SDV 2000 MG IVP (15:53)
--- NOTE | 2025-04-25 16:38 | PC.NURSE ---
Activity/mentation: Patient was restless upon morning assessment, requesting to leave the room and states I feel like I'm in retirement . Nurse assisted patient to a wheelchair and showed him around the ICU. Nurse then took the patient outside, accompanying him at all times. This seemed to help the patient's orientation during that time. Patient did most of the work wheeling himself about. Nurse did this again after lunch with similar results. Patient remained better oriented, calm, but still confused. At approximately 4pm, patient has become more restless, harder to redirect. Believes he needs to put out a fire at the nurses station, and seeing cats in his room.
--- NOTE | 2025-04-25 17:51 | PC.NURSE ---
Shift SUmmary: Uneventful shift. Rested in bed for most of the day, up to a wheel chair and taken outside twice which helped with reorientation, but only briefly. Too confused to safely leave in a recliner. Mental status: Unchanged since this morning. Confused, but pleasant and cooperative. Oriented to self regularly. Occasionally to location. Occasionally hallucinating. Frequently pulling at lines but is easily redirectable. Oral intake: approximately 300mL. Nurse has encouraged fluids and tried to get preferred beverage, but patient still has little desire to drink. Alerted Physician to poor oral intake. Urine output:325mL
[2025-04-26] VITALS (11 sets, daily range): BP systolic 109–150; BP diastolic 65–91; PULSE 59–83; RESP 12–17; TEMP 36.3–36.8; O2SAT 94–95
[2025-04-26 04:19] LABS: Hematocrit 37.2 % (37-53); Hemoglobin 11.30 g/dL (11.27-16.99); Mean Corpuscular HGB Conc 30.4 g/dL (30-55); Mean Corpuscular Hemoglobin 24.0 pg (27-33); Mean Corpuscular Volume 79.1 fl (82-101); Nucleated Red Blood Cells % 0.3 %; Platelet Count 171 10^3/cmm (157-399); Red Blood Count 4.70 10^6/uL (3.85-5.65); White Blood Count 5.78 10^3/uL (3.29-11.43)
[2025-04-26 04:38] LABS: Anion Gap 11.7 (5-19); Blood Urea Nitrogen 19 mg/dL (8-23); Calcium 8.4 mg/dL (8.5-10.5); Carbon Dioxide 29 mmol/L (22-29); Chloride 104 mmol/L (98-107); Creatinine Clr Calc Pharmacy 100.2604; Glucose 151 mg/dL (65-115); Osmolality Calculated 297 mOsm/kg (285-295); Potassium 3.7 mmol/L (3.5-5.1); Sodium 141 mmol/L (136-145)
[2025-04-26 05:03] LABS: Slide Review Slide Review Perform
--- NOTE | 2025-04-26 10:51 | PM.DCS ---
Discharge Providers Date of Admission: 04/19/25 05:30 Date of Discharge: April 26, 2025 Attending Provider at Admission: Caterina Barone MD Attending Provider at Discharge: Bacilio Jones MD Primary Care Provider: Jonathan Pham Diagnoses at Discharge Discharge Diagnosis 1. Chronic osteomyelitis of sacrum: 2. Pulmonary embolism: 3. Pyelonephritis: Reason for Visit Reason for Visit: AMS Brief History: 64M with paraplegia, large decubitus ulcer at least since 2017, known chronic osteomyelitis of the sacrum followed by wound care closely , s/p diverting colostomy and SPC in place which is changed every month. Admitted with sepsis, fever, shock. Hospital Course Hospital Course 1. Dehydration: - BUN currently improved, fluids stopped. 2. GUY (acute kidney injury): CPK mildly high UTOX mixed shanika Adequate intake output monitoring Avoid any nephrotoxic drugs - creatinine normalized 3. Hyperkalemia: - resolved 4. Acute metabolic encephalopathy: Patient is alert could be element of dehydration versus intoxication Patient is a poor historian therefore adequate history cannot be obtained - per , he is normally A/Ox3 with no deficits. No leukocytosis - abnormal UA, urine culture with mixed urogenital shanika Blood cultures NGTD Repeat lactate normalized - patient is alert and oriented today, answering questions appropriately. 5. Paraplegia: BL AKA OT PT referral - home baclofen restarted 6. Diabetes mellitus: Insulin sliding scale and monitor blood glucose 7. Neurogenic bladder: Suprapubic catheter care Follow UA and urine cultures 8. Pyelonephritis: - cont. abx: started on vanc/shandra, downgrade to rocephin 2g daily. - urine culture with mixed urogenital shanika - discharge planning on oral antibiotics - change suprapubic tubing changed on arrival - follow up with urology in 2-4 weeks. 9. Pulmonary embolism: - on CTA: small subsegmental pulmonary emboli in left lung base, no heart strain. - currently on therapeutic lovenox BID - switch to DOAC prior to D/C 10. Type 2 PR (myocardial infarction): - echo done with normal EF, no wall motion abnormalities. - no ACS. 11. Chronic osteomyelitis of sacrum: - wound care following. - has not need abx outpatient. 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 Stanley at [facility] PPx: on therapeutic lovenox for PE. Diet: dysphagia diet. Disposition - Alert and oriented, discharge planning for today - follow up with Dr. Stanley at [facility] concerning left brachiocephalic findings in 1-2 weeks - follow up with urology in 2-4 weeks. Physical Exam Narrative: Physical Exam General: intubated, sedated HEENT: PERRLA, pupils bilaterally equal and reactive, pallors not present Respiratory: CTAB Cards: S1-S2 regular, no murmurs, no tachycardia, no gallops, no rubs Abdomen: Soft, nontender, no organomegaly, ostomy present, suprapubic catheter present Neuro: unable to assess, intubated, sedated Extremities: stage 4 decub ulcer (POA), BL LE AKA, well healed. Urinary Catheter Management: Suprapubic: Cath Placed During This Visit: yes Reason for Continuing Indwelling Catheter: Accurate Measurement of Urinary Output in Critically Ill Patients Urinary Catheter Date of Insertion: 04/19/25 Urinary Catheter Time of Insertion: 04:38 Discharge Data Studies Completed and Pending Completed Studies During Hospitalization Category Date Time Status CT chest abdomen pelvis [[place] [id number] Cat Scan 04/20/25 13:10 Completed ] Routine CT head wo con* [id number] Stat Cat Scan 04/19/25 04:26 Completed CTA PE [CT angio chest PE protcl [id number]] Routine Cat Scan 04/22/25 13:47 Completed CXRP [XR chest 1V portable [id number]] AM LABS Exams 04/21/25 04:00 Completed XR chest 1V portable [id number] Routine Exams 04/19/25 06:29 Completed XR chest 1V portable [id number] Routine Exams 04/19/25 07:36 Completed XR chest 1V portable [id number] Routine Exams 04/19/25 09:40 Completed XR chest 1V portable [id number] Stat Exams 04/19/25 04:26 Completed CV. echo complete* [id number] Routine Ultrasound 04/21/25 17:53 Completed Radiology Impressions Head CT 04/19/25 04:26 IMPRESSION: No acute intracranial abnormality. Chest/Abdomen/Pelvis CT 04/20/25 13:10 IMPRESSION: 1. Subsegmental atelectasis at the lung bases. 2. Cholelithiasis without evidence for acute cholecystitis. 3. Recommend retracting endotracheal tube by 1 to 2 cm for more optimal positioning. Endotracheal tube now terminates at the eduardo. 4. Perinephric stranding around each kidney, greater on the RIGHT. Correlate for pyelonephritis. 5. Suprapubic catheter within nondistended urinary bladder. There is air in the urinary bladder and stranding around the bladder. Suspect cystitis. 6. Bilateral decubitus ulcer tracts. These are very similar to the prior study. 7. Progressive presacral soft tissue thickening since 01/10/2025. Osteomyelitis and cellulitis with osteomyelitis involving the distal sacrum should be considered. Chest X-Ray 04/21/25 04:00 IMPRESSION: 1. Endotracheal tube tip over the lower thoracic trachea, just above the eduardo. 2. No new airspace consolidation. 3. Possible small right pleural effusion. Chest CTA 04/22/25 13:47 IMPRESSION: 1. Small subsegmental pulmonary emboli in the left lung base. No evidence of right heart strain. 2. Nearly resolved areas of consolidation in both lung bases with minimal residual ground-glass opacity and trace pleural fluid. 3. There is a catheter fragment measuring approximately 6 cm in the left brachiocephalic vein suggesting a retained catheter component from prior left chest wall medication port. 4.Other incidental and/or chronic findings as detailed above. ADDENDUM: 04/22/25 1600 THIS REPORT CONTAINS FINDINGS THAT MAY BE CRITICAL TO PATIENT CARE. The findings were verbally communicated by me via telephone conference to JOSEPHINE MUELLER at 3:59 PM CDT on 04/22/2025. The findings were acknowledged and understood. Laboratory Results WBC 5.78 10^3/uL (3.29-11.43) 04/26/25 04:05 Corrected WBC Cancelled 04/24/25 00:59 RBC 4.70 10^6/uL (3.85-5.65) 04/26/25 04:05 Hgb 11.30 g/dL (11.27-16.99) 04/26/25 04:05 Hct 37.2 % (37-53) 04/26/25 04:05 MCV 79.1 fl (82-101) L 04/26/25 04:05 MCH 24.0 pg (27-33) L 04/26/25 04:05 MCHC 30.4 g/dL (30-55) 04/26/25 04:05 RDW 18.1 % (12.1-15.1) H 04/26/25 04:05 Plt Count 171 10^3/cmm (157-399) 04/26/25 04:05 MPV 10.3 fL (7.4-10.4) 04/26/25 04:05 Gran % Cancelled 04/24/25 00:59 Neut % (Auto) 57.5 % 04/26/25 04:05 Lymph % (Auto) 24.4 % 04/26/25 04:05 Pope % (Auto) 8.1 % 04/26/25 04:05 Eos % (Auto) 3.3 % 04/26/25 04:05 Baso % (Auto) 1.0 % 04/26/25 04:05 Neut # (Auto) 3.32 10^3/uL (1.8-7.7) 04/26/25 04:05 Lymph # (Auto) 1.4 10^3/uL (0.8-4.8) 04/26/25 04:05 Pope # (Auto) 0.5 10^3/uL (0.2-0.9) 04/26/25 04:05 Eos # (Auto) 0.2 10^3/uL (0.0-0.8) 04/26/25 04:05 Baso # (Auto) 0.1 10^3/uL (0.0-0.1) 04/26/25 04:05 Absolute Gran (auto) Cancelled 04/24/25 00:59 Nucleated RBC % (auto) 0.3 % 04/26/25 04:05 Nucleated RBCs # 0.0 /100WBC 04/26/25 04:05 APTT 44.7 SECONDS (23.9-36.7) H 04/22/25 15:07 D-Dimer 2.85 ug/mLFEU (0-0.59) H 04/20/25 14:20 Specimen Type Arterial 04/21/25 03:36 Sample Site Radial, right 04/21/25 03:36 ABG pH 7.45 (7.35-7.45) 04/21/25 03:36 ABG pCO2 35.4 mmHg (35-45) 04/21/25 03:36 ABG pO2 70.9 mmHg (80.0-100.0) L 04/21/25 03:36 ABG PO2/FiO2 Ratio 236 04/21/25 03:36 ABG HCO3 24.7 mmol/L (22-26) 04/21/25 03:36 ABG O2 Saturation 93.2 04/20/25 03:52 ABG Base Excess 1.0 mmol/L (-2.0-2.0) 04/21/25 03:36 Jose Test Pos 04/21/25 03:36 A-a O2 Gradient 12.3 mmHg (5-10) H 04/20/25 03:52 Hematocrit 34.1 % (42-52) L 04/21/25 03:36 Hgb O2 Saturation 91.7 % (95-100) L 04/20/25 03:52 Carboxyhemoglobin 0.4 %THgb (0.4-20.1) 04/20/25 03:52 Methemoglobin 1.2 % (0.4-1.5) 04/20/25 03:52 Total Hemoglobin 13.0 g/dL (14-18) L 04/20/25 03:52 Sodium 143.0 mmol/L (131-143) 04/20/25 03:52 Potassium 4.6 mmol/L (3.5-5.0) 04/20/25 03:52 Glucose 172.0 mg/dL (70-115) H 04/20/25 03:52 Ionized Calcium 1.1 mmol/L (1.1-1.4) 04/20/25 03:52 O2 Delivery Device Vent 04/21/25 03:36 O2 Liters/Min 6.0 % 04/19/25 04:41 FiO2 30.0 % 04/21/25 03:36 Tidal Volume 0.45 04/21/25 03:36 PEEP 8.0 cmH20 04/21/25 03:36 Padded Products Finisher ID [email or web address] 04/21/25 03:36 Sodium 141 mmol/L (136-145) 04/26/25 04:05 Potassium 3.7 mmol/L (3.5-5.1) 04/26/25 04:05 Chloride 104 mmol/L (98-107) 04/26/25 04:05 Carbon Dioxide 29 mmol/L (22-29) 04/26/25 04:05 Anion Gap 11.7 (5-19) 04/26/25 04:05 BUN 19 mg/dL (8-23) 04/26/25 04:05 Creatinine 0.7 mg/dL (0.7-1.2) 04/26/25 04:05 GFR Calculation 113.2 mL/min (90-130) 04/26/25 04:05 Glucose 151 mg/dL (65-115) H 04/26/25 04:05 POC Glucose 131 mg/dL (70-110) H 04/26/25 07:56 Calculated Osmolality 297 mOsm/kg (285-295) H 04/26/25 04:05 Lactic Acid 2.8 mmol/L (0.5-2.2) H 04/19/25 04:30 Lactic Acid (Sepsis) 2.7 mmol/L (0.5-2.2) H 04/19/25 07:52 Lactate 1.2 mmol/L (0.5-2.2) 04/20/25 05:13 Calcium 8.4 mg/dL (8.5-10.5) L 04/26/25 04:05 Phosphorus 6.4 mg/dL (2.5-4.5) H 04/19/25 04:30 Magnesium 2.1 mg/dL (1.7-2.3) 04/19/25 04:30 Total Bilirubin 0.3 mg/dL (0.15-1.2) 04/23/25 03:51 AST 18 U/L (0-40) 04/23/25 03:51 ALT 11 U/L (0-41) 04/23/25 03:51 Alkaline Phosphatase 66 U/L (40-130) 04/23/25 03:51 Creatine Kinase 343 U/L (39-308) H* 04/19/25 04:30 Troponin T Baseline 152 ng/L (0-15) H* 04/20/25 14:20 Troponin T 120 Minute 139.7 ng/L (0-15) H 04/20/25 16:39 Delta Troponin T -12.3 ABS# (0-10) L 04/20/25 16:39 Troponin T Hi Sens 6Hr 122.0 ng/L (0-15) H 04/20/25 20:19 Troponin T Hi Sens 6Hr Delta -30.0 ng/L (0-12) L 04/20/25 20:19 Total Protein 7.3 g/dL (6.6-8.7) 04/23/25 03:51 Albumin 3.6 g/dL (3.5-5.2) 04/23/25 03:51 Globulin 3.7 g/dL (1.3-4.6) 04/23/25 03:51 Procalcitonin 0.63 ng/mL (0-0.5) H 04/19/25 04:30 TSH 1.03 uIU/mL (0.27-4.20) 04/19/25 04:30 Urine Color Yellow (Yellow) 04/19/25 06:35 Urine Appearance Turbid (CLEAR) A 04/19/25 06:35 Urine pH 5.0 (5-7) 04/19/25 06:35 Ur Specific [place] 1.022 (1.005-1.030) 04/19/25 06:35 Urine Protein 3+ (Negative) A 04/19/25 06:35 Urine Glucose (UA) Negative (Normal) 04/19/25 06:35 Urine Ketones Trace (Negative) 04/19/25 06:35 Urine Blood 3+ (Negative) A 04/19/25 06:35 Urine Nitrate Negative (Negative) 04/19/25 06:35 Urine Bilirubin Negative (Negative) 04/19/25 06:35 Urine Urobilinogen 1.0 mg/dL (Negative) 04/19/25 06:35 Ur Leukocyte Esterase 2+ (Negative) A 04/19/25 06:35 Urine RBC 80-100 /hpf (0-2) H 04/19/25 06:35 Urine WBC Too numerous to cnt /hpf (0-5) H 04/19/25 06:35 Ur Squamous Epith Cells 5-10 /hpf (0-5) H 04/19/25 06:35 Ur Transition Epith Cell 5-10 /hpf 04/19/25 06:35 Amorphous Sediment Not Reportable 04/19/25 06:35 Urine Bacteria 2+ /hpf (NONE) H 04/19/25 06:35 Fine Granular Casts 0-4 /lpf H 04/19/25 06:35 Coarse Granular Casts 0-4 /lpf H 04/19/25 06:35 Other Casts Waxy /lpf 04/19/25 06:35 Vancomycin Trough 18.1 ug/mL (10-15) H 04/24/25 00:59 Urine Opiates Screen Negative ng/mL (Negative) 04/19/25 06:35 Ur Barbiturates Screen Negative ng/mL (Negative) 04/19/25 06:35 Ur Phencyclidine Scrn Negative ng/mL (Negative) 04/19/25 06:35 Ur Amphetamines Screen Positive ng/mL (Negative) H 04/19/25 06:35 U Benzodiazepines Scrn Negative ng/mL (Negative) 04/19/25 06:35 Urine Cocaine Screen Negative ng/mL (Negative) 04/19/25 06:35 U Marijuana (THC) Screen Negative ng/mL (Negative) 04/19/25 06:35 Ethyl Alcohol < 10 mg/dL (0-10) 04/19/25 04:30 Vitals Last Vital Signs Temp 97.5 F L 04/26/25 04:00 Pulse 83 04/26/25 08:04 Resp 17 04/26/25 08:04 BP 150/91 04/26/25 06:00 Pulse Ox 95 04/26/25 08:04 O2 Del Method Room Air 04/26/25 08:04 O2 Flow Rate 2 04/22/25 08:00 FiO2 30 04/21/25 08:58 Discharge Plan Discharge Patient Disposition: Home Condition: Stable Prescriptions: New Eliquis 5 mg tablet 5 mg PO BID Qty: 60 2RF cefdinir 300 mg capsule 300 mg PO BID 10 Days Qty: 20 0RF Continued glimepiride 1 mg tablet 1 mg PO QAM gabapentin 800 mg tablet 800 mg PO TID metformin 1,000 mg tablet 1,000 mg PO BID lisinopril 5 mg tablet 5 mg PO DAILY baclofen 20 mg tablet 40 mg PO TID Discharge Order = DC NOW: Discharge Order (Routine); Ordered 04/26/25 Ordered By: Bacilio Jones Referrals: Javed Stanley MD [Physician, General Surgery] - 7-10 days Referral Note: possible retained brachiocephalic vein catheter fragment. Jonathan Pham [Primary Care Provider, Family Practice] Patient Instructions: Altered Mental Status (ED), Opioid Safety, Patient Portal & Jyoti Instructions Discharge Attestations Time Spent in Discharge Care*: greater than 30 min Specific Discharge Activities: educating patient, educating and/or supporting family/caregiver, discussing with pcp/other providers, discussing with case making machine operator/social workers/dc planners, documenting/other paperwork and evaluating patient/reviewing data Quality Metrics Clinical Quality Measures [ No reported AMI, CVA or VTE this stay] Coding Level of Care Code Acute Code for Chg Fwd Diagnoses Chronic osteomyelitis of sacrum M86.68 Pulmonary embolism I26.99 Pyelonephritis N12
--- NOTE | 2025-04-26 12:35 | PC.NURSE ---
Mental status..... upon morning assessment, patient is much improved compared to yesterday. Awake, alert. Oriented to person, place, time, and mostly to situation. Does not remember events leading up to hospitalization. Calm, cooperative, not pulling at any wires to trying to unsafely get out of bed.
--- NOTE | 2025-04-26 14:45 | PC.NURSE ---
Patient discharged. Patient is alert and oriented to person, place, time, and situation. Central line to right IJ removed and site dressed with transparent dressing. Nurse changed sacral/perianal wounds before discharge. and patient educated on upcoming appointments and new medications. accompanied patient to vehicle in a motorized wheel chair.
== END 2025-04-26 14:49 | disposition home or self-care (01) | DRG 698 ==
LOC: ER 05:28 → ICU 06:55
PROVIDERS: Internal Medicine; Specialist; Student in an Organized Health Care Education/Training Program; Admitting Provider Student in an Organized Health Care Education/Training Program; Emergency Provider Family Medicine; PCP Family Medicine; Visit Provider Internal Medicine
DX: T83.510A Infection and inflammatory reaction due to cystostomy catheter, initial encounter (principal); A41.9 Sepsis, unspecified organism; G93.41 Metabolic encephalopathy; L89.154 Pressure ulcer of sacral region, stage 4; I21.A1 Myocardial infarction type 2; I26.99 Other pulmonary embolism without acute cor pulmonale; J96.01 Acute respiratory failure with hypoxia; N17.9 Acute kidney failure, unspecified; G82.20 Paraplegia, unspecified; E87.20 Acidosis, unspecified; M86.68 Other chronic osteomyelitis, other site; R57.9 Shock, unspecified; N12 Tubulo-interstitial nephritis, not specified as acute or chronic; T82.898A Other specified complication of vascular prosthetic devices, implants and grafts, initial encounter; E86.0 Dehydration; E87.5 Hyperkalemia; E11.9 Type 2 diabetes mellitus without complications; N31.9 Neuromuscular dysfunction of bladder, unspecified; R00.0 Tachycardia, unspecified; Z79.899 Other long term (current) drug therapy; Z79.84 Long term (current) use of oral hypoglycemic drugs; Z87.442 Personal history of urinary calculi; Y71.8 Miscellaneous cardiovascular devices associated with adverse incidents, not elsewhere classified; Z89.612 Acquired absence of left leg above knee; Z89.611 Acquired absence of right leg above knee
CPT/HCPCS: 36415; 36416; 36592; 36600; 51702; 70450; 71045; 71250; 71275; 74176; 80048; 80051; 80053; 80202; 80306; 80307; 81001; 82330; 82550; 82803; 82805; 82962; 83605; 83735; 84100; 84145; 84443; 84484; 85025; 85049; 85378; 85730; 87040; 87070; 87075; 87086; 87205; 92507; 92526; 92610; 93005; 93306; 94002; 94003; 94640; 94669; 94799; 96365; 96366; 96367; 96372; 96375; 96376; 99291; 99292; C1751; J0283; J0360; J0612; J0696; J1644; J1650; J1815; J1938; J2060; J2185; J2250; J2270; J2470; J2919; J3010; J3373; J3490; J7030; J7040; J7050; J7060; J7120; J9999

== ENCOUNTER → 2025-05-10 10:55 | Outpatient (BNVA) | payer OTHER, MEDICAID, SELFPAY | PROVIDERS: PCP Family Medicine; Visit Provider Thoracic Surgery (Cardiothoracic Vascular Surgery) | DX: I96 Gangrene, not elsewhere classified (principal); L89.324 Pressure ulcer of left buttock, stage 4; L89.314 Pressure ulcer of right buttock, stage 4; L89.102 Pressure ulcer of unspecified part of back, stage 2 | CPT/HCPCS: 97597; 97598 ==

== ENCOUNTER → 2025-06-13 10:49 | Outpatient (BNVA) | payer OTHER, MEDICAID, SELFPAY | PROVIDERS: PCP Family Medicine; Visit Provider Thoracic Surgery (Cardiothoracic Vascular Surgery) | DX: I96 Gangrene, not elsewhere classified (principal); L89.324 Pressure ulcer of left buttock, stage 4; L89.314 Pressure ulcer of right buttock, stage 4; L89.892 Pressure ulcer of other site, stage 2 | CPT/HCPCS: 97597 ==